=== PATIENT | male | born 1940 | race Caucasian/White ===

== ENCOUNTER 2020-01-25 10:31 | Inpatient (IN) | payer MEDICARE, SELFPAY ==
[2020-01-06 10:01] VITALS: BMI 28.8
[2020-01-07 12:36] VITALS: BP 181/79; PULSE 51; RESP 16; O2SAT 98; BMI 31.1
--- NOTE | 2020-01-07 12:44 | HO.ANESPROP2 ---
Documented by User: Mariela Rose 01/22/20 11:06 HPI - Anesthesia Eval Consult details Narrative: 79 yo M for R femoral endarterectomy Cardiac cleared COUNT INCLUDES THE [facility] Past Medical History Medical History (Updated 01/06/20 @ 10:45 by Agatha Kelly) Anemia Angina pectoris Arthritis CAD (coronary artery disease) Diabetes Environmental allergies History of prostate cancer Hx of malignant melanoma Hyperlipidemia Hypertension Peripheral artery disease Sleep apnea Cognitive capacity: A&O x3 Functional capacity: independent ambulation Family History Family history of problems with anesthesia: No Surgical History Surgical History (Updated 01/07/20 @ 12:36 by Agatha Kelly) H/O arthroscopy of right knee Hx of appendectomy Hx of cholecystectomy Hx of colonoscopy Hx of foot surgery Hx of tonsillectomy S/P aortogram with runoff S/P cardiac cath History of Problems with Anesthesia: No Social History Social History Are you a primary wound care specialist to a significant other at home: Yes ( AT HOME HAD CVA) Do you presently have visiting nurse or other home services: No Smoking Status: Former smoker Smoked in Last 30 Days: No Smoking Quit Date: 1974 Second Hand Smoke Exposure: No Use of substances other than those prescribed or required for medical reasons: No Have you been hit, kicked, punched, or otherwise hurt by someone within the past year? If so, by whom?: No Advance Directives: No Advance Directives Information Provided: No Advance Directives on File: No Recently lost weight without trying: No Narrative Narrative: No recent illness >4 mets with primary wound care specialist to with CVA. Multiple flights of stairs throughout a usual day. Denies CP or SOB. + R leg pain r/t to PVD. (LLE angio 11/30/19 with stent successful) Reports mild bronchitis with allergies causes wheezing. Plans to start claritin. Will notifiy surgeon/PCP if worsens. Meds Allergies Allergy/AdvReac Type Severity Reaction Status Date / Time No Known Allergies Allergy Verified 01/06/20 10:01 [No Known Allergies*] Home Medications Medication Instructions Recorded Confirmed Type aspirin 81 mg PO DAILY 01/06/20 01/06/20 History glipizide 5 mg PO DAILY 01/06/20 01/06/20 History isosorbide mononitrate 10 mg PO DAILY 01/06/20 01/06/20 History losartan 50 mg PO DAILY 01/06/20 01/06/20 History metoprolol tartrate 25 mg PO DAILY 01/06/20 01/06/20 History simvastatin 40 mg PO BEDTIME 01/06/20 01/06/20 History Exam Exam Date and Time: January 07, 2020 1244 Height,Weight and Vital Signs: Height 5 ft 10 in Weight 98.43 kg BMI 31 Last Vital Signs Pulse 51 01/07/20 12:36 Resp 16 01/07/20 12:36 BP 181/79 H 01/07/20 12:36 Pulse Ox 98 01/07/20 12:36 Pertinent Lab Results Pertinent Lab Results: Laboratory Tests 11/30/19 01/21/20 01/21/20 11:17 08:21 08:21 WBC 5.9 Hgb 13.0 L Hct 39.7 L Plt Count 212 Sodium 136 Potassium 4.2 Chloride 104 Carbon Dioxide 24 BUN 18 H Creatinine 1.01 Laboratory Tests 09/30/19 11/30/19 07:12 11:17 PT 11.3 INR 1.0 APTT 35.5 Hemoglobin A1c 7.3 type and screen done Narrative Narrative: EKG 01/13/20: NSB with 1st degree AV block, minor nonspecific ST-T changes Airway Mallampati Class: II TM Dist: >3cm Loose/Missing/Broken Teeth: Yes (Missing molars, Chipped Left upper molar) Heart: RRR Lungs: JELENA with faint wheeze, otherwise clear Assessment and Plan Assessment Anesthesia Assessment: Anesthesia Plan Discussed, Consent Obtained and PAT Visit Documented by User: Issa Stoddard 01/25/20 07:30 COUNT INCLUDES THE [facility] Past Medical History Medical History (Updated 01/06/20 @ 10:45 by Agatha Kelly) Anemia Angina pectoris Arthritis CAD (coronary artery disease) Diabetes Environmental allergies History of prostate cancer Hx of malignant melanoma Hyperlipidemia Hypertension Peripheral artery disease Sleep apnea Surgical History Surgical History (Updated 01/07/20 @ 12:36 by Agatha Kelly) H/O arthroscopy of right knee Hx of appendectomy Hx of cholecystectomy Hx of colonoscopy Hx of foot surgery Hx of tonsillectomy S/P aortogram with runoff S/P cardiac cath Social History Social History Are you a primary wound care specialist to a significant other at home: Yes ( AT HOME HAD CVA) Do you presently have visiting nurse or other home services: No Smoking Status: Former smoker Smoked in Last 30 Days: No Smoking Quit Date: 1974 Second Hand Smoke Exposure: No Use of substances other than those prescribed or required for medical reasons: No Have you been hit, kicked, punched, or otherwise hurt by someone within the past year? If so, by whom?: No Advance Directives: No Advance Directives Information Provided: No Advance Directives on File: No Recently lost weight without trying: No Meds Allergies Allergy/AdvReac Type Severity Reaction Status Date / Time No Known Allergies Allergy Verified 01/06/20 10:01 [No Known Allergies*] Home Medications Medication Instructions Recorded Confirmed Type aspirin 81 mg PO DAILY 01/06/20 01/06/20 History glipizide 5 mg PO DAILY 01/06/20 01/06/20 History isosorbide mononitrate 10 mg PO DAILY 01/06/20 01/06/20 History losartan 50 mg PO DAILY 01/06/20 01/06/20 History metoprolol tartrate 25 mg PO DAILY 01/06/20 01/06/20 History simvastatin 40 mg PO BEDTIME 01/06/20 01/06/20 History
[2020-01-21 09:20] LABS: Hematocrit 39.7 % (42-52); Mean Corpuscular HGB Conc 32.7 g/dl (31.0-36.0); Mean Corpuscular Hemoglobin 28.5 pg (27.0-33.0); Mean Corpuscular Volume 87.1 fL (80-98); Mean Platelet Volume 9.8 fL (9.4-12.4); Platelet Count 212 X10*3/uL (160-400); Red Blood Count 4.56 X10*6/uL (4.60-5.80); Red Cell Distribution Width 13.4 % (11.0-16.0); White Blood Count 5.9 X10*3/uL (4.8-10.8)
[2020-01-21 09:29] LABS: Prothrombin Time 11.5 SEC (10.8-13.0)
[2020-01-21 09:32] LABS: Partial Thromboplastin Time 38.2 SEC (24.1-38.0)
[2020-01-21 09:55] LABS: Anion Gap 12 (12-20); Carbon Dioxide 24 mmol/L (22-29); Chloride 104 mmol/L (96-108); Potassium 4.2 mmol/l (3.3-5.1); Sodium 136 mmol/L (135-145)
[2020-01-25] VITALS (22 sets, daily range): BP systolic 145–193; BP diastolic 52–81; PULSE 45–67; RESP 12–18; TEMP 36.2–37.3; O2SAT 92–99
[2020-01-25 07:11] LABS: SARS COV2 PCR INHOUSE NEGATIVE (Negative)
[2020-01-25 07:24] LABS: Glucose, Whole Blood 136 mg/dL (60-115)
[2020-01-25] MEDS: ceFAZolin Sodium/Dextrose,Iso 2 GM/50 ML PIGGYBACK IV ×2 (07:42→12:39)
[2020-01-25] MEDS: Lactated Ringers 1,000 ML 50 ML IVCONT (07:43)
--- NOTE | 2020-01-25 11:32 | OP_ITS ---
SURGEON: Krishna Oscar MD INDICATIONS: Hiren is a 79-year-old gentleman, history of activity limiting claudication. He has undergone noninvasive testing along with diagnostic angiogram demonstrating common femoral artery disease. He now presents for endarterectomy. Risks, benefits, and complications were discussed in detail with the patient. He demonstrated clear understanding and consented. PREOPERATIVE DIAGNOSIS: POSTOPERATIVE DIAGNOSIS: PROCEDURE PERFORMED: ESTIMATED BLOOD LOSS: 150 mL. COMPLICATIONS: ANESTHESIA: General endotracheal. ASSISTANTS: Dr. Bello. SPECIMENS: One. PREPROCEDURE DIAGNOSIS: Atherosclerosis with activity limiting right lower extremity claudication. POSTPROCEDURE DIAGNOSIS: Atherosclerosis with activity limiting right lower extremity claudication. PROCEDURES PERFORMED: 1. Right femoral cutdown. 2. Endarterectomy of SFA. 3. Endarterectomy of common femoral artery. 4. Remote endarterectomy of iliac artery. 5. Remote endarterectomy of profunda femoris. DESCRIPTION OF PROCEDURE: The patient was brought to the operating room, prior to which a time-out was called for patient identification and site verification. Right lower extremity was prepped and draped in standard surgical fashion. Incision was carried out over the right groin going down into the common femoral artery. It was tracked up to the inguinal ligament and we traced it down into the SFA. These were individually isolated with silastic loops, the common femoral, SFA, and with eventual dissection, we were then able to identify the profunda femoris. Of note, there was a small side branch that had to be identified and upon clearing had to be repaired with a 6-0 Prolene suture. Once this was accomplished, we administered 7000 units of systemic heparin, after 5 minutes of circulation time, we clamped the common femoral, SFA, and profunda. Arteriotomy was created with 11 blade and then we opened it with Hernandez scissors going all the way up to the base of the external iliac. Once this was done, we started at the SFA performed endarterectomy using a [place] elevator, fine michael. Once the SFA was cleared into the common femoral, we did a remote endarterectomy of the profunda and we established good backbleeding from there and then we turned our attention to the iliac that was cleared and we established good backbleeding from there. Once this was all accomplished, irrigated clean, loose debris was removed. We sutured out a XenoSure patch with a 6-0 Prolene suture in a circumferential manner prior to closure. We flushed this entire area clear and then we closed the patch. Upon closure, several interrupted 6-0 Prolene sutures had to be placed, in addition, in the apex, we tacked with a 7-0 Prolene as well. Adequate hemostasis was achieved. Tisseel sealant was applied and we reapproximated the deep layer using interrupted 2-0 Polysorb suture, superficial layer with 3-0, and finally skin with skin clips. Sterile dressing was applied. At the end of the case, sponge, needle, instrument counts were correct. The patient tolerated the procedure well, returned to Recovery with stable vitals. DRAINS: None. MD SHAUN Reveles/ACE / [id number] MTDD
[2020-01-25] MEDS: 0.9 % Sodium Chloride 1,000 ML 80 ML IVCONT (12:38)
--- NOTE | 2020-01-25 12:53 | P.HPCC_ITS ---
History of Present Illness Date of Service: 01/25/20 Mr. Chisholm is admitted to the ICU this morning following right femoral endarterectomy by Dr. Oscar. The patient is a 79-year-old gentleman with severe activity limiting claudication and difficulty ambulating. His past medical history also includes obesity, type 2 diabetes, hypertension, hyperlipidemia, coronary artery disease with angina, status post PTCA, and history of prostate cancer and arthritis. Medications at home include simvastatin, metformin, Isordil, metoprolol, aspi rin, ibuprofen, losartan, and oxycodone. He had a recent stent to the left common iliac, but Dr. Oscar was not able to do endovascular intervention on the right lower extremity. He therefore presented today for operative intervention. The procedure was accomplished under general endotracheal anesthesia with no operative or anesthetic complications. Postoperatively, he recovered in the PACU, and then was brought to the ICU for overnight monitoring. In the ICU, the patient is fully awake alert and appropriate. He denies any complaints. He is breathing easy with sat of 99% on 1 L oxygen by nasal cannula, and 96% on room air. See vital signs below. There is no jugular venous distention with the head of the bed at 10-20 degrees. Chest is clear to auscultation. Heart rate and rhythm are very soft, with normal-sounding S1 and S2, with no murmur or gallops. The abdomen is benign. The wound has a clean dressing. The patient's feet are about equal, normal temperature, which the patient says is a significant improvement on the right for him.. Of the four pulses in the two feet, the only one I can feel is a faint right posterior tibial in the right foot. He has good dopplerable pulses x4. Preop laboratory data: See below. IMPRESSION: 1. Severe peripheral vascular disease with symptomatic claudication. 2. Obesity 3. Diabetes 4. Hypertension 5. Coronary artery disease. Status post Successful, uncomplicated right femoral endarterectomy. We will resume his home medications. Monitor overnight in the ICU. F/u per Dr. Oscar. [facility] Past Medical History Medical History (Updated 01/06/20 @ 10:45 by Agatha Kelly) Anemia Angina pectoris Arthritis CAD (coronary artery disease) Diabetes Environmental allergies History of prostate cancer Hx of malignant melanoma Hyperlipidemia Hypertension Peripheral artery disease Sleep apnea Functional capacity: independent ambulation Surgical History Surgical History (Updated 01/07/20 @ 12:36 by Agatha Kelly) H/O arthroscopy of right knee Hx of appendectomy Hx of cholecystectomy Hx of colonoscopy Hx of foot surgery Hx of tonsillectomy S/P aortogram with runoff S/P cardiac cath Social History Social History Are 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 If so, by whom?: No Advance Directives: No Advance Directives Information Provided: No Advance Directives on File: No Recently lost weight without trying: No Meds Allergies Allergy/AdvReac Type Severity Reaction Status Date / Time No Known Allergies Allergy Verified 01/06/20 10:01 [No Known Allergies*] Home Medications Medication Instructions Recorded Confirmed Type aspirin 81 mg PO DAILY 01/06/20 01/06/20 History glipizide 5 mg PO DAILY 01/06/20 01/06/20 History isosorbide mononitrate 10 mg PO DAILY 01/06/20 01/06/20 History losartan 50 mg PO DAILY 01/06/20 01/06/20 History metoprolol tartrate 25 mg PO DAILY 01/06/20 01/06/20 History simvastatin 40 mg PO BEDTIME 01/06/20 01/06/20 History Physical Exam Vital Signs: Vital Signs: Vital Signs Temp Pulse Resp BP Pulse Ox 01/25/20 11:41 48 L 18 162/67 H 99 01/25/20 11:28 98.5 F 51 18 178/69 H 98 01/25/20 11:13 50 18 167/64 H 98 01/25/20 10:57 51 171/66 H 98 01/25/20 10:43 52 16 184/70 H 98 01/25/20 10:28 55 18 177/68 H 92 01/25/20 10:23 57 16 176/68 H 92 01/25/20 10:18 56 18 176/66 H 98 01/25/20 10:13 98.4 F 58 18 193/76 H 98 01/25/20 07:35 97.2 F 45 L 16 153/63 H 95 Body Mass Index 31.1 Results Labs Labs: Laboratory Tests 01/21/20 01/21/20 01/21/20 07:55 08:21 08:21 WBC 5.9 RBC 4.56 L Hgb 13.0 L Hct 39.7 L MCV 87.1 MCH 28.5 MCHC 32.7 RDW 13.4 Plt Count 212 MPV 9.8 Absolute Nucleated RBC 0.000 Nucleated RBC % (auto) 0.0 PT 11.5 INR 1.0 APTT 38.2 H Sodium Potassium Chloride Carbon Dioxide Anion Gap POC Glucose Coronavirus (PCR) Blood Type B Negative Antibody Screen NEGATIVE 01/21/20 01/25/20 01/25/20 08:21 05:50 07:02 WBC RBC Hgb Hct MCV MCH MCHC RDW Plt Count MPV Absolute Nucleated RBC Nucleated RBC % (auto) PT INR APTT Sodium 136 Potassium 4.2 Chloride 104 Carbon Dioxide 24 Anion Gap 12 POC Glucose 136 H Coronavirus (PCR) NEGATIVE Blood Type Antibody Screen
[2020-01-25 16:34] LABS: Glucose, Whole Blood 144 mg/dL (60-115)
[2020-01-25] MEDS: glipiZIDE 5 MG TABLET PO (16:36)
[2020-01-25] MEDS: hydrALAZINE HCl 25 MG TABLET PO (20:03)
[2020-01-25 23:16] LABS: Glucose, Whole Blood 130 mg/dL (60-115)
[2020-01-26] VITALS (35 sets, daily range): BP systolic 116–197; BP diastolic 46–79; PULSE 7–80; RESP 11–21; TEMP 36.1–37.1; O2SAT 94–100; BMI 31.1
--- NOTE | 2020-01-26 | ECG_ITS ---
Test Reason : PAIN Blood Pressure : / mmHG Vent. Rate : 078 BPM Atrial Rate : 078 BPM P-R Int : 206 ms QRS Dur : 096 ms QT Int : 354 ms P-R-T Axes : 045 -06 170 degrees QTc Int : 403 ms Normal sinus rhythm Left ventricular hypertrophy with repolarization abnormality RSR' or QR pattern in V1 suggests right ventricular conduction delay ST depression in Lateral leads Abnormal ECG When compared with ECG of 21-APR-2014 15:03, ST now depressed in Anterolateral leads Referred By: Marlin Cabrales Electronically Signed By:MIRELLA DALEY MD
--- NOTE | 2020-01-26 | ECG_ITS ---
Test Reason : chest pain Blood Pressure : / mmHG Vent. Rate : 073 BPM Atrial Rate : 073 BPM P-R Int : 198 ms QRS Dur : 096 ms QT Int : 412 ms P-R-T Axes : 045 -08 -06 degrees QTc Int : 453 ms Normal sinus rhythm Left ventricular hypertrophy with repolarization abnormality Left axis deviation Nonspecific ST abnormality Abnormal ECG Please see previous EKG. No significant changes seen Referred By: Yahir Muller Electronically Signed By:MIRELLA DALEY MD
[2020-01-26] MEDS: hydrALAZINE HCl 20 MG/ML VIAL 5 MG IVPUSH ×2 (00:19→01:21)
[2020-01-26] MEDS: 0.9 % Sodium Chloride 1,000 ML 80 ML IVCONT (00:22)
--- NOTE | 2020-01-26 00:40 | PC.NURSE ---
Addendum entered by Adela Hammond RN 01/26/20 02:55: At 0200 pt BP 184/57, HR 75. PA undated, IV labetalol ordered. Pt BP 164/55, HR 71 after labetalol administration. Pt is asymptomatic. Nursing will continue to monitor. Addendum entered by Adela Hammond RN 01/26/20 02:53: Pt continues to have elevated BP. BP 183/63, HR 69, PA undated. A second dose of 5mg IV hydralazine ordered and administered with some effect, BP now 168/55, HR 70. Original Note: Patient BP 179/63. PA updated and ordered 5mg IV hydralazine - med adminsitered with positive effect; BP 159/59.
[2020-01-26] MEDS: Famotidine 20 MG TABLET PO (02:05)
[2020-01-26] MEDS: Labetalol HCL 100 MG/20 ML VIAL 10 MG IVPUSH (02:25)
[2020-01-26] MEDS: Simethicone 80 MG TAB.CHEW PO (03:47)
--- NOTE | 2020-01-26 06:23 | PC.NURSE ---
Patient c/o of heartburn overnight. 20mg PO pepcid ordered and administered - pt reports minimal effect. Pt given simethicone with positive effect - pt able to sleep and no further c/o heartburn
[2020-01-26 07:43] LABS: Glucose, Whole Blood 155 mg/dL (60-115)
[2020-01-26 07:51] LABS: MANUAL DIFF FLAG NO
[2020-01-26 08:01] LABS: Basophils Percent Auto 0.4 % (0-2); Eosinophils Percent Auto 0.5 % (0-4); Hematocrit 33.4 % (42-52); Hemoglobin 11.2 g/dl (14.0-18.0); Imm Gran Abs Auto 0.02 X10*3/uL (0.00-0.03); Imm Gran Pct Auto 0.2 % (0.0-0.4); Lymphocytes Absolute Auto 0.9 X10*3/uL (1.2-4.9); Lymphocytes Percent Auto 11.4 % (20-40); Mean Corpuscular HGB Conc 33.5 g/dl (31.0-36.0); Mean Corpuscular Hemoglobin 29.1 pg (27.0-33.0); Mean Corpuscular Volume 86.8 fL (80-98); Mean Platelet Volume 9.8 fL (9.4-12.4); Monocytes Absolute Auto 1.1 X10*3/uL (0.1-1.2); Monocytes Percent Auto 13.3 % (2-11); Neutrophils Absolute Auto 6.1 X10*3/uL (2.0-8.3); Neutrophils Percent Auto 74.2 % (45-73); Platelet Count 166 X10*3/uL (160-400); Prothrombin Time 11.9 SEC (10.8-13.0); Red Blood Count 3.85 X10*6/uL (4.60-5.80); Red Cell Distribution Width 13.7 % (11.0-16.0); White Blood Count 8.2 X10*3/uL (4.8-10.8)
--- NOTE | 2020-01-26 08:01 | HO.POSTANES ---
Post Anesthesia Evaluation Post Anesthesia Evaluation Vital Signs: Vital Signs Temp Pulse Resp BP Pulse Ox 01/26/20 07:00 66 16 168/73 H 98 01/26/20 06:00 69 16 163/70 H 95 01/26/20 05:00 70 21 H 152/53 H 96 01/26/20 04:00 69 18 161/61 H 95 01/26/20 03:00 68 14 168/55 H 95 01/26/20 02:44 71 164/55 H 01/26/20 02:25 75 180/59 H 01/26/20 02:00 75 15 184/57 H 96 01/26/20 01:28 70 168/55 H 94 01/26/20 01:21 68 182/65 H 01/26/20 01:00 69 18 183/63 H 94 01/26/20 00:39 72 16 159/59 H 01/26/20 00:19 69 179/63 H 01/26/20 00:00 98.6 F 69 11 L 179/63 H 97 01/25/20 23:00 66 15 160/57 H 96 01/25/20 22:00 67 18 164/58 H 93 01/25/20 21:00 64 16 164/59 H 94 01/25/20 20:03 62 155/62 H Anesthesia: General Mental Status: Awake Pain Control: Satisfactory Nausea/Vomiting: None Hydration: Adequate Anesthesia-Related Issues: No Anes. Related Issues
[2020-01-26 08:16] LABS: Blood Urea Nitrogen 13 mg/dL (9-16); Calcium 8.2 mg/dL (8.4-10.2); Creatinine Clr Calc Pharmacy 92.7; Estimated Glomerular Filt Rate > 60; Glucose Random 163 mg/dL (60-115)
[2020-01-26] MEDS: Isosorbide Mononitrate 30 MG TAB.ER.24H 15 MG PO (08:19)
[2020-01-26] MEDS: glipiZIDE 5 MG TABLET PO (08:20)
[2020-01-26] MEDS: Metoprolol Tartrate 25 MG TABLET PO ×2 (08:20→21:49)
[2020-01-26] MEDS: Losartan Potassium 50 MG TABLET PO (08:21)
[2020-01-26] MEDS: Aspirin Enteric Coated 81 MG TABLET.DR PO (08:21)
[2020-01-26 08:28] LABS: Anion Gap 13 (12-20); Carbon Dioxide 22 mmol/L (22-29); Chloride 103 mmol/L (96-108); Potassium 4.1 mmol/l (3.3-5.1); Sodium 134 mmol/L (135-145)
--- NOTE | 2020-01-26 09:14 | P.PNVS_ITS ---
Subjective Subjective Patient reports: feels better and pain is less Interval history: Patient is postop day 1 status post right femoral endarterectomy. he is doing extremely well. Pain is well controlled. Is eager to be up and ambulating. He did experience a little bit of reflux last night but overall tolerating a p.o. diet. Physical Exam Vital Signs: Vital Signs: Vital Signs Temp Pulse Resp BP Pulse Ox 01/26/20 09:00 97.8 F 73 13 148/65 H 98 01/26/20 08:21 66 182/51 H 01/26/20 08:20 66 182/51 H 01/26/20 08:19 66 182/51 H 01/26/20 08:00 97.2 F 66 18 182/51 H 94 01/26/20 07:00 66 16 168/73 H 98 01/26/20 06:00 69 16 163/70 H 95 01/26/20 05:00 70 21 H 152/53 H 96 01/26/20 04:00 69 18 161/61 H 95 01/26/20 03:00 68 14 168/55 H 95 01/26/20 02:44 71 164/55 H 01/26/20 02:25 75 180/59 H 01/26/20 02:00 75 15 184/57 H 96 01/26/20 01:28 70 168/55 H 94 01/26/20 01:21 68 182/65 H 01/26/20 01:00 69 18 183/63 H 94 01/26/20 00:39 72 16 159/59 H 01/26/20 00:19 69 179/63 H 01/26/20 00:00 98.6 F 69 11 L 179/63 H 97 01/25/20 23:00 66 15 160/57 H 96 01/25/20 22:00 67 18 164/58 H 93 01/25/20 21:00 64 16 164/59 H 94 01/25/20 20:03 62 155/62 H 01/25/20 20:00 98.4 F 65 16 155/62 H 93 01/25/20 19:00 66 16 177/66 H 96 01/25/20 18:00 64 18 176/68 H 96 01/25/20 17:00 56 17 154/81 H 97 01/25/20 16:00 99.1 F 56 15 145/54 H 97 01/25/20 15:00 54 12 158/56 H 98 01/25/20 14:00 98 F 57 15 150/52 H 95 01/25/20 13:00 97.8 F 53 15 158/56 H 95 01/25/20 11:41 48 L 18 162/67 H 99 01/25/20 11:28 98.5 F 51 18 178/69 H 98 01/25/20 11:13 50 18 167/64 H 98 01/25/20 10:57 51 171/66 H 98 01/25/20 10:43 52 16 184/70 H 98 01/25/20 10:28 55 18 177/68 H 92 01/25/20 10:23 57 16 176/68 H 92 01/25/20 10:18 56 18 176/66 H 98 01/25/20 10:13 98.4 F 58 18 193/76 H 98 Body Mass Index 31.1 Const: General: cooperative, healthy appearing and no acute distress Orientation/consciousness: oriented to person, oriented to place and oriented to time HENMT: Head: Yes normal to inspection Neck: Carotids: no bruits Chest: Chest palpation & inspection: normal inspection of the chest Resp: Effort & Inspection: normal respiratory effort and able to speak in complete sentences Auscultation: clear to auscultation bilaterally Cardio: Rate: regular rate Heart sounds: S1 normal heart sound present and S2 normal heart sound present GI: Inspection: Yes normal to inspection Skin: Other: Right groin incision clean dry intact. No evidence of hematoma. Excellent DP signal on the right. General skin exam: no rashes or lesions noted Wounds: no wounds Neuro: General: oriented to person, oriented to place, oriented to time and CN's II-XI intact bilaterally Extrem: General: Yes normal to inspection, Yes full ROM and Yes no clubbing, c yanosis or edema Psych: Appearance: grossly normal and well kempt Speech and movement: Normal speech and movement present Affect: normal affect Progress Note: A&P Assessment and plan (1) PAD (peripheral artery disease): Problem details: Patient is status post right femoral endarterectomy. In doing extremely well. Will get him out of bed to chair today. We will DC Kemp And stop IV fluids. If stable may transfer [place] [facility]. thank you to the manager consumer insights for assistance in his care. Status: Acute Fall Risk Details Current Medications: Current Medications Generic Name Dose Route Start Last Admin Trade Name Freq PRN Reason Stop Dose Admin Acetaminophen 650 mg 01/25/20 11:54 Acetaminophen 325 Mg Tablet PO Q6H PRN Pain, Mild (Pain Scale 1-3) Aspirin 81 mg 01/26/20 09:00 01/26/20 08:21 Aspirin Enteric Coated 81 Mg Tablet. PO 81 mg DAILY BC Administration Atorvastatin Calcium 20 mg 01/26/20 21:00 Atorvastatin Calcium 20 Mg Tablet PO BEDTIME BC Glipizide 5 mg 01/26/20 09:00 01/26/20 08:20 Glipizide 5 Mg Tablet PO 5 mg DAILY BC Administration Sodium Chloride 1,000 mls @ 80 mls/hr 01/25/20 11:54 01/26/20 00:22 Ns IVCONT 80 mls/hr .[id number] BC Administration Isosorbide Mononitrate 15 mg 01/26/20 09:00 01/26/20 08:19 Isosorbide Mononitrate 30 Mg Tab.Er.24h PO 15 mg DAILY BC Administration Protocol Losartan Potassium 50 mg 01/26/20 09:00 01/26/20 08:21 Losartan Potassium 50 Mg Tablet PO 50 mg DAILY BC Administration Protocol Metoprolol Tartrate 25 mg 01/26/20 09:00 01/26/20 08:20 Metoprolol Tartrate 25 Mg Tablet PO 25 mg DAILY BC Administration Protocol Morphine Sulfate 2 mg 01/25/20 11:54 Morphine Sulfate 2 Mg/Ml Cartridge IVPUSH Q4H PRN Pain, Severe (Pain Scale 7-10) Oxycodone HCl 5 mg 01/25/20 11:54 Oxycodone Hcl Immed Release 5 Mg Tablet PO Q4H PRN Pain, Moderate (Pain Scale 4-6 Sodium Chloride 3 ml 01/25/20 16:00 01/26/20 07:41 0.9 % Sodium Chloride Flush 3 Ml Syringe IVFLUSH Not Given QSHIFT [facility] Time Spent With Patient Time: Total time spent is greater than 50% in coordination of care (as documented) at patient's floor/unit and/or counseling patient: Time with patient: 15 - 24 minutes
[2020-01-26] MEDS: Heparin Sodium,Porcine 5,000 UNIT/ML VIAL 5000 UNIT SUBCUT ×2 (10:35→16:32)
[2020-01-26 11:36] LABS: Glucose, Whole Blood 153 mg/dL (60-115)
[2020-01-26] MEDS: 0.9 % Sodium Chloride Flush 3 ML SYRINGE IVFLUSH (16:32)
[2020-01-26 16:55] LABS: Glucose, Whole Blood 147 mg/dL (60-115)
[2020-01-26] MEDS: Atorvastatin Calcium 20 MG TABLET PO (21:05)
[2020-01-26] MEDS: Nitroglycerin 0.4 MG TAB.SUBL SUBLINGUAL (23:04)
--- NOTE | 2020-01-26 23:17 | PC.NURSE ---
PT IS A&O X3. S/P RIGHT FEMORAL ENDARTERECTOMY YESTERDAY. WAS OOB IN CHAIR. BTB WITHOUT DIFFICULTY. MOVES STEADILY. RT GROIN DSG IS INTACT WITH 2 SMALL DOTS OF BLOOD STAINING. PEDAL AND POSTERIOR PULSES ARE AUDIBLE WITH A DOPPLAR ON BOTH FEET AND BOTH ARE WARM TO TOUCH. BP WAS HIGH, UP TO 179/59. LEAF BLENDER NOAMY NOTIFIED AND METOPROLOL INCREASED TO BID AND PT RECEIVED A DOSE TONIGHT. BP DID COME DOWN. ORDERS GIVEN TO TRANSFER PT TO [facility]. PT AWARE OF PLAN. WHILE WAITING FOR BED TO BE ASSIGNED, PT BEGAN TO HAVE CHEST/EPIGASTRIC PAIN NON RADIATING THAT HE BELIEVED WAS EPIGASTRIC AND TOOK TUMS FROM HOME. IT WASN'T COMPLETELY GOING AWAY AND HE CALLED FOR THE NURSE TO ASK FOR A NTG SL TABLET. O2 WAS GIVEN AT 2L VIA NC. 12 LEAD EKG WAS DONE WITH NO CHANGES. SERVICE WAS TRANSFERRED TO HOSPITALIST CARE BY THIS TIME AND DR BLU TORRE NOTIFIED AND NTG SL ORDERED AND ONE TABLET GIVEN. SBP WAS UP TO 190'S BEFORE NTG AND CAME DOWN TO 130'S. PAIN COMPLETELY RESOLVED.
[2020-01-27] VITALS: BP 118/58; PULSE 75; RESP 16; O2SAT 96
[2020-01-27] MEDS: 0.9 % Sodium Chloride Flush 3 ML SYRINGE IVFLUSH ×2 (01:00→08:36)
--- NOTE | 2020-01-27 01:56 | PC.NURSE ---
PT TRANSFERRED FROM ICU TO IMC VIA STRETCHER WITHOUT DIFFICULTY. TELE MONITOR APPLIED. PT IS NSR WITH FIRST DEGREE AVB RATE 60S. PT DENIES PAIN. VSS. HIGH FALL RISK PROTOCOL CONTINUED AND EXPLAINED TO PT. PT HAS NO C/O AT THIS TIME. CALL KELLEY IN REACH. WILL CONTINUE TO MONITOR.
[2020-01-27] MEDS: Heparin Sodium,Porcine 5,000 UNIT/ML VIAL 5000 UNIT SUBCUT ×2 (02:08→08:40)
[2020-01-27 03:56] VITALS: BP 180/70; PULSE 66; RESP 18; TEMP 35.9; O2SAT 95
[2020-01-27 05:07] VITALS: BP 180/70; PULSE 68
[2020-01-27] MEDS: hydrALAZINE HCl 20 MG/ML VIAL 5 MG IVPUSH (05:07)
--- NOTE | 2020-01-27 05:41 | PC.NURSE ---
BP 180/70 THIS AM. PT ASYMPTOMATIC FOR HYPERTENSION. NOTIFIED. PT GIVEN 5MG IV HYDRALAZINE. WILL RECHECK BLOOD PRESSURE PER PROTOCOL. CALL KELLEY IN REACH.
[2020-01-27 06:02] VITALS: BP 164/68
[2020-01-27 07:18] VITALS: BP 172/64; PULSE 69; RESP 20; TEMP 36.7; O2SAT 96
[2020-01-27 07:40] LABS: Glucose, Whole Blood 171 mg/dL (60-115)
[2020-01-27] MEDS: Aspirin Enteric Coated 81 MG TABLET.DR PO (08:32)
[2020-01-27] MEDS: Isosorbide Mononitrate 30 MG TAB.ER.24H 15 MG PO (08:32)
[2020-01-27] MEDS: Metoprolol Tartrate 25 MG TABLET PO (08:33)
[2020-01-27] MEDS: Losartan Potassium 50 MG TABLET PO (08:34)
[2020-01-27] MEDS: glipiZIDE 5 MG TABLET PO (08:36)
--- NOTE | 2020-01-27 09:47 | W.MHC.F2F ---
Service Date Service Date: 01/27/20 Reasons for Services overseeing care: Krishna Oscar MD Homebound: Leaving the home is medically contraindicated at this time without the asist of a device and/or another person due th the listed conditions above and below. post op femoral endarterectomy. Fall risk Certification: Based on the above findings, I certify that this patient is confined to the home and needs intermittent penitentiary care, physical therapy and/or speech therapy, or continues to need occupational therapy. The patient is under my care, and I have initiated the establishment of the plan of care. The patient will be followed by a physician who will periodically review the plan of care.
--- NOTE | 2020-01-27 10:02 | MHC.CM.PN ---
Patient will be discharged home today. Referral made to [facility], patient is in agreement. Family will provide transportation.
--- NOTE | 2020-01-27 12:22 | DS_ITS ---
ADMITTING DIAGNOSIS: Peripheral artery disease. DISCHARGE DIAGNOSIS: Peripheral artery disease. HOSPITAL COURSE: The patient was admitted on 01/25/2020, underwent elective femoral endarterectomy of right common femoral artery. Postoperatively, did well, was observed in the ICU. Postop day 1, Kemp catheter was removed and the patient was out of bed to chair. Postop day 2, the [place] [facility] [place] and was ambulating without any significant difficulty, noted that the leg felt significantly better, was subsequently discharged. CONDITION UPON DISCHARGE: Stable. DISCHARGE DIET: Regular. DISCHARGE MEDICATIONS: To resume all home medications and Percocet was added for pain control. DISCHARGE INSTRUCTIONS: Included follow up with me in approximately 2 weeks' time and visiting nurses were engaged for followup. Once again, he will require 2-week followup for staple removal. MD SHAUN Reveles/ACE / [id number]
== END 2020-01-27 11:43 | disposition home or self-care (01) | DRG 272 ==
LOC: HO.ICU 10:32 → HO.IMC 01-26 23:48
PROVIDERS: Anesthesiology; Admitting Provider Surgery Vascular Surgery; PCP Internal Medicine; Visit Provider Surgery Vascular Surgery
PROC: 04CH0ZZ Extirpation of Matter from Right External Iliac Artery, Open Approach (ICD-10-PCS; principal; 2020-01-25 07:30)
DX: E11.51 Type 2 diabetes mellitus with diabetic peripheral angiopathy without gangrene (principal); I70.211 Atherosclerosis of native arteries of extremities with intermittent claudication, right leg; E78.5 Hyperlipidemia, unspecified; I10 Essential (primary) hypertension; G47.30 Sleep apnea, unspecified; I25.119 Atherosclerotic heart disease of native coronary artery with unspecified angina pectoris; Z20.828 Contact with and (suspected) exposure to other viral communicable diseases; Z99.89 Dependence on other enabling machines and devices; Z79.84 Long term (current) use of oral hypoglycemic drugs; Z79.899 Other long term (current) drug therapy
CPT/HCPCS: 36415; 80048; 80051; 82947; 85025; 85027; 85610; 85730; 86850; 86900; 86901; 87635; 88304; 88311; 93005; C1768; J0690; J2405; J3010

== ENCOUNTER 2020-01-28 09:19 | Emergency (ER) | payer MEDICARE, SELFPAY ==
[2020-01-28 09:27] VITALS: BP 162/55; PULSE 60; RESP 13; TEMP 37.1; O2SAT 99; BMI 29.9
--- NOTE | 2020-01-28 10:01 | US_ITS ---
EXAMINATION: US ABDOMEN LIMITED CLINICAL INFORMATION: Epigastric and right upper quadrant pain. COMPARISON: CTA abdomen and pelvis 11/17/2019 TECHNIQUE: Real-time imaging of the right upper quadrant abdominal viscera. FINDINGS: PANCREAS: The visualized pancreas is normal in size and contour and echogenicity. There is no pancreatic ductal distention or retroperitoneal effusion. Portion pancreatic tail obscured by bowel gas and not completely imaged. LIVER: The liver is normal in size and smooth in contour. There is mild increased hepatic parenchymal echogenicity consistent with hepatic steatosis. There is no focal hepatic parenchymal lesion. No intrahepatic biliary ductal dilatation. Doppler shows portal flow towards the liver. GALLBLADDER: Prior cholecystectomy. COMMON BILE DUCT: Normal in caliber measuring 0.6 cm in diameter. RIGHT KIDNEY: Right kidney measures 11.4 cm in length. There is normal parenchymal thickness and echogenicity. No hydronephrosis or visible calculi. Again, there is a cyst lateral side interpolar region measuring approximately 2.9 x 2.3 x 1.6 cm. There is a thin avascular internal septation. No solid component. FREE FLUID: None. US/US abdomen limited IMPRESSION: 1. Prior cholecystectomy. No ductal dilatation. 2. Visualized pancreas unremarkable. Portion pancreatic tail obscured by bowel gas. 3. No right hydronephrosis or visible calculi. 4. Hepatic steatosis.
--- NOTE | 2020-01-28 10:02 | ECG_ITS ---
Test Reason : CP Blood Pressure : / mmHG Vent. Rate : 061 BPM Atrial Rate : 061 BPM P-R Int : 216 ms QRS Dur : 100 ms QT Int : 432 ms P-R-T Axes : 061 -01 000 degrees QTc Int : 434 ms Sinus rhythm with 1st degree A-V block Nonspecific ST abnormality Abnormal ECG When compared with ECG of 26-JAN-2020 22:52, ST less depressed in Lateral leads Referred By: Serenity Gaviria Electronically Signed By:MIRELLA DALEY MD
[2020-01-28] MEDS: Lidocaine HCl Viscous 2 % 15 ML SOLUTION MUCOUS MEM (10:11)
[2020-01-28] MEDS: Famotidine 20 MG TABLET PO (10:11)
[2020-01-28] MEDS: Magnesium Hydrox/Alum Hydrox 30 ML ORAL.SUSP PO (10:11)
--- NOTE | 2020-01-28 10:25 | ED.CHESTPAIN ---
HPI - Chest Pain General Chief Complaint: Chest Pain Stated Complaint: INTERGESTION Time Seen by Provider: 01/28/20 10:01 Source: patient History of Present Illness HPI narrative: 79-year-old M with past medical history obesity, type 2 diabetes, HTN, HLD, CAD with angina,prostate cancer, S/P endovascular intervention in the [facility] by Dr. Oscar on 01/25/20 presenting to ED complaining of epigastric burning x3 days. admits to history of GERD, reports symptoms similar to prior, states started while was in hospital after procedure, worse after eating and when lying flat. Mildly relieved with Pepcid. Denies chest pain, SOB, nausea /vomiting, diarrhea Related Data Home Medications Medication Instructions Recorded Confirmed losartan 50 mg PO DAILY 01/06/20 01/06/20 metoprolol tartrate 25 mg PO DAILY 01/06/20 01/06/20 simvastatin 40 mg PO BEDTIME 01/06/20 01/06/20 glipizide 5 mg PO DAILY 01/25/20 01/25/20 isosorbide mononitrate 15 mg PO DAILY 01/25/20 01/25/20 nitroglycerin 0.4 mg SUBLINGUAL Q5M PRN 01/25/20 01/25/20 Previous Rx's Medication Instructions Recorded oxycodone-acetaminophen [Percocet] 1 tab PO Q6H PRN #10 tab 01/27/20 alum-mag hydroxide-simeth [Maalox 10 ml PO Q6H PRN #3000 ml 01/28/20 Advanced] omeprazole 10 mg PO DAILY 14 Days #14 cap 01/28/20 Allergies Allergy/AdvReac Type Severity Reaction Status Date / Time No Known Allergies Allergy Verified 01/06/20 10:01 [No Known Allergies*] Review of Systems Review of Systems: Constitutional: No Fever, No Chills, No Fatigue, No Malaise Cardiovascular: No Chest Pain, No SOB, No Dyspnea on Exertion, No Edema Respiratory: No Cough, No Sputum, No Wheezing, No Dyspnea Gastrointestinal: No Nausea, No Vomiting, No Diarrhea, No Constipation,+Abdominal pain Musculoskeletal: No joint pain, No Myalgias, No Joint Swelling Skin: No Skin Lesions, No rash Yes all other systems are reviewed and are negative PMFSH Past Medical History Attestation statement: The following information was validated with the patient. Medical History (Updated 01/28/20 @ 14:13 by DANIEL Ftich) Anemia Angina pectoris Arthritis CAD (coronary artery disease) Diabetes Environmental allergies History of prostate cancer Hx of malignant melanoma Hyperlipidemia Hypertension Peripheral artery disease Sleep apnea Surgical History (Updated 01/07/20 @ 12:36 by Agatha Kelly) H/O arthroscopy of right knee Hx of appendectomy Hx of cholecystectomy Hx of colonoscopy Hx of foot surgery Hx of tonsillectomy S/P aortogram with runoff S/P cardiac cath Social History Social History Household Members: Spouse Housing: House Alcohol intake: never Smoking Status: Never smoker Second Hand Smoke Exposure: No Use of substances other than those prescribed or required for medical reasons: No Advance Directives: Yes Advance Directives Information Provided: Yes Advance Directives on File: No Physical Exam Vital Signs: Vital Signs: Vital Signs Temp Pulse Resp BP Pulse Ox 01/28/20 12:59 98.1 F 56 12 156/61 H 98 01/28/20 11:33 98.0 F 55 19 136/57 L 98 01/28/20 09:27 98.7 F 60 13 162/55 H 99 Body Mass Index 29.9 Const: General: cooperative and healthy appearing Orientation/consciousness: patient oriented x3 Limitations: no limitations HENMT: Head: Yes normal to inspection Ears: hearing grossly normal bilaterally General nose exam: Normal external nose present Face and sinus: Yes normal facial exam Eyes: General: appearance normal, both eyes and all related structures EOM: EOMs intact bilaterally Neck: Neck: Yes normal visual inspection Resp: Effort & Inspection: normal respiratory effort Auscultation: clear to auscultation bilaterally, no crackles, no rales and no rhonchi Cardio: Rate: regular rate Heart sounds: S1 normal heart sound present and S2 normal heart sound present GI: Inspection: Yes normal to inspection Palpation (GI): Soft to palpation, Tenderness to palpation present (GI) in the epigastrum and in the RUQ, no guarding and not rigid Skin: Rashes: no rashes Wounds: no wounds Neuro: General: patient oriented x3 Extrem: Other: surgical site to right groin with hector intact. Area is dry / clean ecchymosis. No drainage / /induration or surrounding cellulitis. No bilateral calf tenderness General: No edema Course Course Course Narrative: -1118-- BUN elevated likely from dehydration, glucose 221, no AG, troponin 37.9 (no priors in system) > EKG nonischemic /without changes> will obtain 3hr repeat -1157-- ultrasound showing hepatic steatosis otherwise unremarkable - serial troponin 47.8> not greater than 50% delta, NH unlikely -1412- on re-evaluation patient reports symptomatic improvement / resolution in the ED. Lab and imaging results discussed. Including worrisome signs and symptoms and strict return precautions. Patient verbalized understanding feel safe for discharge home MDM - Chest Pain MDM Narrative Medical decision making narrative: 79-year-old M with past medical history obesity, type 2 diabetes, HTN, HLD, CAD with angina,prostate cancer, S/P endovascular intervention in the [place] by Dr. Oscar on 01/25/20 presenting to ED complaining of epigastric burning x3 days. On exam VSS, NAD/ well-appearing, abdomen soft with epigastric/ RUQ TTP. Surgical site dry/clean without active infection. Concern for GERD /cholecystitis/pancreatitis vs atypical ACS. plan: EKG, labs, abdomen ultrasound, symptomatic therapy/reassess Lab Data Result diagrams: 01/28/20 10:23 01/28/20 10:23 Labs: Lab Results 01/28/20 01/28/20 01/28/20 Range/Units 10:23 10:23 10:23 WBC 7.4 (4.8-10.8) X10*3/uL RBC 3.58 L (4.60-5.80) X10*6/uL Hgb 10.5 L (14.0-18.0) g/dl Hct 30.9 L (42-52) % MCV 86.3 (80-98) fL MCH 29.3 (27.0-33.0) pg MCHC 34.0 (31.0-36.0) g/dl RDW 13.7 (11.0-16.0) % Plt Count 189 (160-400) X10*3/uL MPV 9.5 (9.4-12.4) fL Immature Gran % (Auto) 0.5 H (0.0-0.4) % Neut % (Auto) 60.5 (45-73) % Lymph % (Auto) 17.2 L (20-40) % [place] % (Auto) 15.6 H (2-11) % Eos % (Auto) 5.8 H (0-4) % Baso % (Auto) 0.4 (0-2) % Lymph # (Auto) 1.3 (1.2-4.9) X10*3/uL [place] # (Auto) 1.2 (0.1-1.2) X10*3/uL Eos # (Auto) 0.4 (0.0-0.4) X10*3/uL Baso # (Auto) 0.0 (0.0-0.2) X10*3/uL Abs Immat Gran (auto) 0.04 H (0.00-0.03) X10*3/uL Absolute Neuts (auto) 4.5 (2.0-8.3) X10*3/uL Absolute Nucleated RBC 0.000 (0.0-0.012) X10*3/uL Nucleated RBC % (auto) 0.0 (0.0-0.2) /100WBC Hold Blue Top Sodium 135 (135-145) mmol/L Potassium 4.2 (3.3-5.1) mmol/l Chloride 101 (96-108) mmol/L Carbon Dioxide 27 (22-29) mmol/L Anion Gap 11 L (12-20) BUN 25 H D (9-16) mg/dL Creatinine 1.03 (0.5-1.4) mg/dL Estim Creat Clear Calc 67.2 Estimated GFR > 60 Random Glucose 221 H D (60-115) mg/dL Calcium 9.3 (8.4-10.2) mg/dL Total Bilirubin (0.0-1.0) mg/dL Direct Bilirubin (0.0-0.5) mg/dL AST (5-37) U/L ALT (0-40) U/L Alkaline Phosphatase (39-117) U/L Troponin I High Sens 37.9 H (<3.5-35.0) ng/L Total Protein (6.5-8.0) g/dL Albumin (3.5-5.0) g/dL Lipase (8-78) U/L 01/28/20 01/28/20 01/28/20 Range/Units 10:23 10:23 13:12 WBC (4.8-10.8) X10*3/uL RBC (4.60-5.80) X10*6/uL Hgb (14.0-18.0) g/dl Hct (42-52) % MCV (80-98) fL MCH (27.0-33.0) pg MCHC (31.0-36.0) g/dl RDW (11.0-16.0) % Plt Count (160-400) X10*3/uL MPV (9.4-12.4) fL Immature Gran % (Auto) (0.0-0.4) % Neut % (Auto) (45-73) % Lymph % (Auto) (20-40) % [place] % (Auto) (2-11) % Eos % (Auto) (0-4) % Baso % (Auto) (0-2) % Lymph # (Auto) (1.2-4.9) X10*3/uL [place] # (Auto) (0.1-1.2) X10*3/uL Eos # (Auto) (0.0-0.4) X10*3/uL Baso # (Auto) (0.0-0.2) X10*3/uL Abs Immat Gran (auto) (0.00-0.03) X10*3/uL Absolute Neuts (auto) (2.0-8.3) X10*3/uL Absolute Nucleated RBC (0.0-0.012) X10*3/uL Nucleated RBC % (auto) (0.0-0.2) /100WBC Hold Blue Top SEE NOTE Sodium (135-145) mmol/L Potassium (3.3-5.1) mmol/l Chloride (96-108) mmol/L Carbon Dioxide (22-29) mmol/L Anion Gap (12-20) BUN (9-16) mg/dL Creatinine (0.5-1.4) mg/dL Estim Creat Clear Calc Estimated GFR Random Glucose (60-115) mg/dL Calcium (8.4-10.2) mg/dL Total Bilirubin 0.5 (0.0-1.0) mg/dL Direct Bilirubin 0.2 (0.0-0.5) mg/dL AST 15 (5-37) U/L ALT 15 (0-40) U/L Alkaline Phosphatase 75 (39-117) U/L Troponin I High Sens 47.8 H (<3.5-35.0) ng/L Total Protein 6.0 L (6.5-8.0) g/dL Albumin 3.7 (3.5-5.0) g/dL Lipase 50 (8-78) U/L Discharge Plan Discharge Clinical Impression: Abdominal pain, epigastric GERD (gastroesophageal reflux disease) Qualifiers: Esophagitis presence: esophagitis presence not specified Qualified Code(s): K21.9 - Gastro-esophageal reflux disease without esophagitis Patient Disposition: Home, Self-Care Instructions: Gastroesophageal Reflux Disease (ED) Additional Instructions: your blood work was reassuring today in the ED. Your ultrasound in chest x-ray did not show any acute findings Continue taking omeprazole as needed for your GERD Maalox also's help settle your stomach acid Follow-up with your GI doctor and PCP if her symptoms persist or worsen, your shortness breath, or chest pain return to the ED immediately Prescriptions: New omeprazole 10 mg capsule,delayed release(DR/EC) 10 mg PO DAILY 14 Days Qty: 14 RF: 0 alum-mag hydroxide-simeth [Maalox Advanced] 200-200-20 mg/5 mL suspension 10 ml PO Q6H PRN (Reason: indigestion) Qty: 3000 RF: 0 No Action simvastatin 40 mg Tablet 40 mg PO BEDTIME RF: 0 losartan 50 mg Tablet 50 mg PO DAILY RF: 0 metoprolol tartrate 25 mg Tablet 25 mg PO DAILY RF: 0 isosorbide mononitrate 30 mg Tablet Extended Release 24 Hr 15 mg PO DAILY RF: 0 nitroglycerin 0.4 mg Tablet, Sublingual 0.4 mg SUBLINGUAL Q5M PRN (Reason: Chest Pain) RF: 0 glipizide 5 mg Tablet 5 mg PO DAILY RF: 0 oxycodone-acetaminophen [Percocet] 5-325 mg tablet 1 tab PO Q6H PRN (Reason: pain) Qty: 10 RF: 0 Referrals: Gilbert Francis MD [Primary Care Provider] - 2 days Jerzy Prieto [Physician] - 1 week
[2020-01-28 10:28] LABS: MANUAL DIFF FLAG NO
[2020-01-28 10:33] LABS: Basophils Percent Auto 0.4 % (0-2); Eosinophils Absolute Auto 0.4 X10*3/uL (0.0-0.4); Eosinophils Percent Auto 5.8 % (0-4); Hematocrit 30.9 % (42-52); Hemoglobin 10.5 g/dl (14.0-18.0); Imm Gran Abs Auto 0.04 X10*3/uL (0.00-0.03); Imm Gran Pct Auto 0.5 % (0.0-0.4); Lymphocytes Absolute Auto 1.3 X10*3/uL (1.2-4.9); Lymphocytes Percent Auto 17.2 % (20-40); Mean Corpuscular Hemoglobin 29.3 pg (27.0-33.0); Mean Corpuscular Volume 86.3 fL (80-98); Mean Platelet Volume 9.5 fL (9.4-12.4); Monocytes Absolute Auto 1.2 X10*3/uL (0.1-1.2); Monocytes Percent Auto 15.6 % (2-11); Neutrophils Absolute Auto 4.5 X10*3/uL (2.0-8.3); Neutrophils Percent Auto 60.5 % (45-73); Platelet Count 189 X10*3/uL (160-400); Red Blood Count 3.58 X10*6/uL (4.60-5.80); Red Cell Distribution Width 13.7 % (11.0-16.0); White Blood Count 7.4 X10*3/uL (4.8-10.8)
[2020-01-28 11:02] LABS: Anion Gap 11 (12-20); Blood Urea Nitrogen 25 mg/dL (9-16); Calcium 9.3 mg/dL (8.4-10.2); Carbon Dioxide 27 mmol/L (22-29); Chloride 101 mmol/L (96-108); Creatinine Clr Calc Pharmacy 67.2; Estimated Glomerular Filt Rate > 60; Glucose Random 221 mg/dL (60-115); Potassium 4.2 mmol/l (3.3-5.1); Sodium 135 mmol/L (135-145)
[2020-01-28 11:06] LABS: Alanine Aminotransferase 15 U/L (0-40); Albumin Level 3.7 g/dL (3.5-5.0); Alkaline Phosphatase 75 U/L (39-117); Aspartate Amino Transferase 15 U/L (5-37); Bilirubin Direct 0.2 mg/dL (0.0-0.5); Bilirubin Total 0.5 mg/dL (0.0-1.0); Lipase 50 U/L (8-78)
[2020-01-28 11:12] LABS: Troponin-I High Sensitivity 37.9 ng/L (<3.5-35.0)
--- NOTE | 2020-01-28 11:27 | XR_ITS ---
EXAMINATION: XR CHEST CLINICAL INFORMATION: Chest pain COMPARISON: Chest radiographs 01/07/2019 TECHNIQUE: Portable upright AP x2 views of the chest was obtained. FINDINGS: There is no pneumothorax, pleural reaction, or effusion. No airspace consolidation or definite groundglass opacity. The costophrenic sulci are clear. The heart is normal in size. The hilar contours are normal. The mediastinal contours are stable. There is no visible acute bony abnormality. XR/XR chest 1V IMPRESSION: Lungs clear. No acute intrathoracic disease.
[2020-01-28 11:33] VITALS: BP 136/57; PULSE 55; RESP 19; TEMP 36.7; O2SAT 98
[2020-01-28] MEDS: Aspirin Enteric Coated 325 MG TABLET.DR PO (12:20)
[2020-01-28 12:59] VITALS: BP 156/61; PULSE 56; RESP 12; TEMP 36.7; O2SAT 98
[2020-01-28 14:02] LABS: Troponin-I High Sensitivity 47.8 ng/L (<3.5-35.0)
== END 2020-01-28 14:39 | disposition home or self-care (01) ==
PROVIDERS: Physician Assistant; Emergency Provider Emergency Medicine; PCP Internal Medicine
DX: K21.9 Gastro-esophageal reflux disease without esophagitis (principal); I25.10 Atherosclerotic heart disease of native coronary artery without angina pectoris; I10 Essential (primary) hypertension; Z79.899 Other long term (current) drug therapy
CPT/HCPCS: 36415; 71045; 76705; 80048; 80076; 83690; 84484; 85025; 93005; 99284

== ENCOUNTER → 2020-02-11 14:36 | Outpatient (BNVA) | payer MEDICARE, SELFPAY | PROVIDERS: PCP Internal Medicine; Visit Provider Surgery Vascular Surgery | DX: T81.49XA Infection following a procedure, other surgical site, initial encounter (principal); L03.115 Cellulitis of right lower limb; I73.9 Peripheral vascular disease, unspecified | CPT/HCPCS: 99212 ==

== ENCOUNTER → 2020-03-08 11:02 | Outpatient (BNVA) | payer MEDICARE, SELFPAY | PROVIDERS: PCP Internal Medicine; Visit Provider Surgery Vascular Surgery | DX: I73.9 Peripheral vascular disease, unspecified (principal) | CPT/HCPCS: 99212 ==

== ENCOUNTER 2020-05-30 12:54 | Outpatient (REF) | payer MEDICARE, SELFPAY ==
--- NOTE | ~2020-05-30 | US_ITS ---
EXAMINATION: NONINVASIVE ASSESSMENT OF THE ARTERIES OF BOTH LOWER EXTREMITIES WITH PVR EXAM AND BILATERAL LOWER EXTREMITY DUPLEX CLINICAL INFORMATION: Peripheral vascular disease TECHNIQUE: Ankle pulse volume recordings, ankle pressure measurements and ankle brachial indices were obtained of the lower extremity arterial system bilaterally in addition to duplex Doppler techniques with wave form analysis and measurement of velocities in the common femoral, profunda femoral, superficial femoral, popliteal and tibial arteries. The study was performed only at rest. COMPARISON: Previous exam October 2019 FINDINGS: a) AT REST: RIGHT LE. The right ankle-brachial index is: 0.97 2. Right ankle pressure: normal. 3. Right ankle PVR waveform: normal. 4. Right direct duplex Doppler findings: There is evidence of atherosclerotic disease with vessel wall calcification. There is a marked wall thickening and luminal narrowing of the distal superficial femoral artery. There is a prominent collateral vessel. There is evidence of mild atherosclerotic disease and stenosis of the popliteal artery. There areas of segmental stenosis of the visualized right posterior tibial artery. * Common femoral artery: 172 cm/s, Diastolic flow reversal: Yes * Superficial femoral artery (proximal, mid, distal): 138, 212 and 154 cm/s, Diastolic flow reversal: Biphasic waveform proximally and triphasic waveform in the mid and distal SFA. * Popliteal artery: 156 cm/s, Diastolic flow reversal: Yes * Posterior tibial artery: 82 cm/s, Diastolic flow reversal: No. Monophasic flow LEFT LE. The left ankle-brachial index is: 0.56 2. Left ankle pressure: Slightly decreased 3. Left ankle PVR waveform: Slightly dampened 4. Left direct duplex Doppler findings: There is significant atherosclerotic plaque seen in the left common femoral artery. * Common femoral artery: 125 cm/s, Diastolic flow reversal: No * Superficial femoral artery (proximal, mid, distal): 126, 62 and 51 cm/s, Diastolic flow reversal: No. Monophasic flow. * Popliteal artery: 159 cm/s, Diastolic flow reversal: No. Monophasic flow. * Posterior tibial artery: 53 cm/s, Diastolic flow reversal: No. Monophasic flow. Left profunda peak stalk velocity is markedly elevated at 438 cm/s suggestive of stenosis. ESTHER Reference: * >0.97-1.25 = normal - no significant arterial disease * 0.75-0.96 = mild peripheral arterial disease * 0.5-0.74 = moderate peripheral arterial disease * <0.50 = severe peripheral arterial disease US/US arterial duplex LE BI IMPRESSION: Right: Right distal SFA disease with collateral vessels seen. Diseased right posterior tibial artery. The right ESTHER is 0.97 which is normal. Left: Significant calcified plaque in the left common femoral artery. Elevated peak systolic velocity in the profunda suggestive of stenosis. Monophasic flow seen throughout the left lower extremity. The left ESTHER is 0.56 suggestive of moderate obstructive atherosclerotic disease.
--- NOTE | ~2020-05-30 | US_ITS ---
EXAMINATION: NONINVASIVE ASSESSMENT OF THE ARTERIES OF BOTH LOWER EXTREMITIES WITH PVR EXAM AND BILATERAL LOWER EXTREMITY DUPLEX CLINICAL INFORMATION: Peripheral vascular disease TECHNIQUE: Ankle pulse volume recordings, ankle pressure measurements and ankle brachial indices were obtained of the lower extremity arterial system bilaterally in addition to duplex Doppler techniques with wave form analysis and measurement of velocities in the common femoral, profunda femoral, superficial femoral, popliteal and tibial arteries. The study was performed only at rest. COMPARISON: Previous exam October 2019 FINDINGS: a) AT REST: RIGHT LE. The right ankle-brachial index is: 0.97 2. Right ankle pressure: normal. 3. Right ankle PVR waveform: normal. 4. Right direct duplex Doppler findings: There is evidence of atherosclerotic disease with vessel wall calcification. There is a marked wall thickening and luminal narrowing of the distal superficial femoral artery. There is a prominent collateral vessel. There is evidence of mild atherosclerotic disease and stenosis of the popliteal artery. There areas of segmental stenosis of the visualized right posterior tibial artery. * Common femoral artery: 172 cm/s, Diastolic flow reversal: Yes * Superficial femoral artery (proximal, mid, distal): 138, 212 and 154 cm/s, Diastolic flow reversal: Biphasic waveform proximally and triphasic waveform in the mid and distal SFA. * Popliteal artery: 156 cm/s, Diastolic flow reversal: Yes * Posterior tibial artery: 82 cm/s, Diastolic flow reversal: No. Monophasic flow LEFT LE. The left ankle-brachial index is: 0.56 2. Left ankle pressure: Slightly decreased 3. Left ankle PVR waveform: Slightly dampened 4. Left direct duplex Doppler findings: There is significant atherosclerotic plaque seen in the left common femoral artery. * Common femoral artery: 125 cm/s, Diastolic flow reversal: No * Superficial femoral artery (proximal, mid, distal): 126, 62 and 51 cm/s, Diastolic flow reversal: No. Monophasic flow. * Popliteal artery: 159 cm/s, Diastolic flow reversal: No. Monophasic flow. * Posterior tibial artery: 53 cm/s, Diastolic flow reversal: No. Monophasic flow. Left profunda peak stalk velocity is markedly elevated at 438 cm/s suggestive of stenosis. ESTHER Reference: * >0.97-1.25 = normal - no significant arterial disease * 0.75-0.96 = mild peripheral arterial disease * 0.5-0.74 = moderate peripheral arterial disease * <0.50 = severe peripheral arterial disease US/US ESTHER complete IMPRESSION: Right: Right distal SFA disease with collateral vessels seen. Diseased right posterior tibial artery. The right ESTHRE is 0.97 which is normal. Left: Significant calcified plaque in the left common femoral artery. Elevated peak systolic velocity in the profunda suggestive of stenosis. Monophasic flow seen throughout the left lower extremity. The left ESTHER is 0.56 suggestive of moderate obstructive atherosclerotic disease.
== END 2020-05-30 12:55 | disposition home or self-care (01) ==
LOC: HO.US 12:54
PROVIDERS: Visit Provider Surgery Vascular Surgery
DX: I70.213 Atherosclerosis of native arteries of extremities with intermittent claudication, bilateral legs (principal)
CPT/HCPCS: 93923; 93925

== ENCOUNTER → 2020-06-07 12:55 | Outpatient (BNVA) | payer MEDICARE, SELFPAY | PROVIDERS: PCP Internal Medicine; Visit Provider Surgery Vascular Surgery | DX: I73.9 Peripheral vascular disease, unspecified (principal) | CPT/HCPCS: 99212 ==

== ENCOUNTER 2020-10-05 09:38 | Outpatient (REF) | payer MEDICARE, SELFPAY ==
--- NOTE | ~2020-10-05 | FL_ITS ---
EXAMINATION: XR GI SERIES CLINICAL INFORMATION: Epigastric pain COMPARISON: None TECHNIQUE: Routine upper GI air-contrast study was performed. FINDINGS: On oral administration of thick barium and effervescent granules there is normal propagation bolus from the oral cavity through the pharynx, esophagus into stomach without any evidence of obstruction, narrowing or stricture. On placing patient supine and prone the course, caliber and peristalsis of the stomach is normal. No gastroesophageal reflux or hiatal hernia was seen during exam. FLUOROSCOPY TIME: 1.8 minutes DOSE AREA PRODUCT: 42.986 uGy-m2 (microgray-meter squared) FL/FL upper GI series IMPRESSION: Unremarkable upper GI air contrast study.
[2020-10-05 10:54] LABS: Estimated Average Glucose 174 mg/dL; Hemoglobin A1c % 7.7 %
[2020-10-05 11:10] LABS: Alanine Aminotransferase 19 U/L (0-40); Albumin Level 4.3 g/dL (3.5-5.0); Alkaline Phosphatase 85 U/L (39-117); Anion Gap 13 (12-20); Aspartate Amino Transferase 18 U/L (5-37); Bilirubin Total 0.4 mg/dL (0.0-1.0); Blood Urea Nitrogen 20 mg/dL (9-16); C Reactive Protein 0.19 mg/dL (< or = 0.50); Calcium 9.3 mg/dL (8.4-10.2); Carbon Dioxide 23 mmol/L (22-29); Chloride 106 mmol/L (96-108); Estimated Glomerular Filt Rate > 60; Glucose Random 172 mg/dL (60-115); Lipase 22 U/L (8-78); Potassium 4.4 mmol/L (3.3-5.1); Sodium 138 mmol/L (135-145)
== END 2020-10-05 09:39 | disposition home or self-care (01) ==
LOC: HO.XRAY 09:38
PROVIDERS: PCP Internal Medicine; Visit Provider Internal Medicine
DX: R10.13 Epigastric pain (principal); I73.9 Peripheral vascular disease, unspecified; E11.9 Type 2 diabetes mellitus without complications; K21.9 Gastro-esophageal reflux disease without esophagitis
CPT/HCPCS: 36415; 74240; 80053; 83036; 83690; 86140

== ENCOUNTER 2020-11-06 19:40 | Observation (INO) | payer MEDICARE, SELFPAY ==
--- NOTE | ~2020-11-06 | MR_ITS ---
EXAMINATION: MR BRAIN WITHOUT CONTRAST CLINICAL INFORMATION: TIA. COMPARISON: CT from 11/06/2020. TECHNIQUE: Multiplanar, multisequence imaging of the brain was performed without contrast. FINDINGS: No diffusion abnormalities are identified to suggest an acute infarct. No hydrocephalus evident. No mass effect or midline shift is seen. Mild chronic white matter microangiopathic changes visible with a chronic infarct in the left frontal lobe. There is generalized parenchymal volume loss. There are small chronic lacunar infarcts in the left caudate head and right thalamus. No extra-axial fluid collections are seen. The brainstem and cerebellum are normal. Minimal hemosiderin staining visible in the left caudate head. The craniovertebral junction, marrow signal, and midline structures are normal. The major intracranial flow voids at the level of the [place] are preserved. The dural venous sinus flow voids are maintained. The mastoid air cells are well aerated. Mild patchy areas of mucosal thickening and aerosolized secretions visible in the paranasal sinuses. There is scar tissue and volume loss in the left parotid space, presumably from a prior parotidectomy. MR/MR head/brain wo con IMPRESSION: No acute intracranial process. Mild chronic white matter microangiopathy. Chronic infarcts in the left caudate head, right thalamus, and left frontal lobe.
--- NOTE | ~2020-11-06 | CT_ITS ---
EXAMINATION: CT ANGIOGRAM NECK WITH CONTRAST CT ANGIOGRAM BRAIN WITH CONTRAST CLINICAL INFORMATION: TIA. COMPARISON: Head CT November 06, 2020. TECHNIQUE: Test bolus sequences followed by intravenous administration 70 mL of Omnipaque 350. Helical imaging was performed in the axial plane from the thoracic inlet to the skull vertex. Delayed postcontrast imaging of the head was also performed. The data was processed at the sterile processing technologist workstation for generation of MIP sequences. Angled MIPs and volume rendered reformatted images were also generated at an offline 3D workstation. Stenoses are assessed in accordance with NASCET criteria unless otherwise indicated. This CT examination was performed using dose optimization techniques as appropriate, variously including the following: *Automated exposure control *Adjustment of mA and/or kV according to patient size (this includes techniques or standardized protocols for targeted exams where dose is matched to indication/reason for exam; i.e. extremities or head) *Use of iterative reconstruction technique DLP: 1676 mGy-cm FINDINGS: Head CT: There is no intracranial hemorrhage, extra-axial collection, mass effect, or acute large territory infarction. A chronic infarct is seen within the left frontal lobe involving the MCA vascular territory. Mild hypoattenuation is seen in the cerebral white matter compatible with chronic microangiopathy. There is no abnormal enhancement. The ventricles are normal in size and configuration without hydrocephalus. The dural venous sinuses are normally opacified. Paranasal sinus mucosal thickening is noted. Both mastoids are underpneumatized. The extracranial structures otherwise unremarkable. Neck CTA: Atheromatous changes are seen involving the aortic arch. The great vessel origins are patent. Atheromatous changes are seen at both carotid bifurcations without significant stenosis on the right and less than 50% stenosis on the left. The cervical segments of both internal carotid arteries are patent. Both vertebral artery cervical segments are patent. Head CTA: No proximal vessel occlusion is seen. Atheromatous changes are seen at both carotid siphons resulting in mild stenosis of the left paraclinoid ICA segment. There is focal severe stenosis of the right mid A2 LORENZA segment. The LORENZA distally is opacified. There is mild stenosis involving the right M2 MCA segment. Atheromatous changes are seen along the intradural segment of left vertebral artery with associated moderate stenosis. Right vertebral artery and basilar artery are patent. 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 No discrete aneurysm is seen. Non-vascular findings: Postoperative findings of left sided subtotal parotidectomy multilevel degenerative changes are seen in the spine. Are noted. No abnormal soft tissue seen within the surgical bed. CT/CT angio head neck IMPRESSION: CT head: No intracranial hemorrhage or large acute infarction. 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 Background changes of mild chronic microangiopathy. CTA neck: No hemodynamically significant stenosis in the major arteries of the neck. 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 No proximal vessel occlusion. No definite aneurysm.
--- NOTE | ~2020-11-06 | CT_ITS ---
EXAMINATION: CT HEAD WITHOUT CONTRAST (STROKE PROTOCOL) CLINICAL INFORMATION: Stroke protocol. Aphasia, resolved. Rule out stroke, bleed COMPARISON: None TECHNIQUE: Contiguous axial imaging was performed from the skull base to vertex without intravenous administration of contrast. This CT examination was performed using dose optimization techniques as appropriate, variously including the following: *Automated exposure control *Adjustment of mA and/or kV according to patient size (this includes techniques or standardized protocols for targeted exams where dose is matched to indication/reason for exam; i.e. extremities or head) *Use of iterative reconstruction technique DLP: 887 mGy-cm FINDINGS: There is no intracranial hemorrhage, hematoma, or extra-axial fluid collection. Mild enlargement of the ventricles, sulci, and extra-axial CSF spaces is indicative of parenchymal volume loss. There is no hydrocephalus, edema, or mass effect. The focal encephalomalacia is evident within the left operculum and adjacent perisylvian frontal lobe, suggestive of a prior infarct. There is a lacunar infarct at the left caudate head. [place]-white matter differentiation otherwise appears symmetric. There is no evidence of an acute infarct or mass lesion. A few foci of hypoattenuation in the subcortical and periventricular white matter are most consistent with chronic microangiopathic changes. The calvarium appears intact. There is no pneumocephalus or orbital emphysema. The visualized sinuses and middle ears and mastoid air cells show no significant mucosal thickening. There are no air-fluid levels. CT/CT head for stroke IMPRESSION: No acute intracranial pathology. Small region of encephalomalacia in the left frontal and opercular cortices (MCA distribution) suggesting prior infarct. Left caudate lacunar infarct. Mild chronic cerebral white matter microangiopathy. This critical result was discussed with Dr. Strauss at 8:04 PM on 11/06/2020. It was ascertained that the content and urgency of the report was understood at the time of direct communication.
--- NOTE | ~2020-11-06 | XR_ITS ---
EXAMINATION: XR CHEST CLINICAL INFORMATION: Aphasia. Shortness . COMPARISON: 01/28/2020 TECHNIQUE: AP portable upright view of the chest FINDINGS: No consolidation, pneumothorax, or pleural effusion. Cardiac and mediastinal contours are normal. Pulmonary vasculature is unremarkable. Degenerative disc disease is present in the thoracic spine. Calcific atherosclerosis is noted in the thoracic aorta. XR/XR chest 1V IMPRESSION: No acute cardiopulmonary findings
--- NOTE | 2020-11-06 19:46 | ECG_ITS ---
Test Reason : STROKE SYMPTOMS Blood Pressure : / mmHG Vent. Rate : 065 BPM Atrial Rate : 065 BPM P-R Int : 216 ms QRS Dur : 098 ms QT Int : 434 ms P-R-T Axes : 059 -08 090 degrees QTc Int : 451 ms Sinus rhythm with 1st degree A-V block Minimal voltage criteria for LVH, may be normal variant Nonspecific T wave abnormality Abnormal ECG When compared with ECG of 28-JAN-2020 09:27, Nonspecific T wave abnormality, worse in Lateral leads Referred By: Griffin Strauss Electronically Signed By:Socrates Ramsey
[2020-11-06 19:56] VITALS: BP 169/53; PULSE 66; RESP 19; TEMP 37.1; O2SAT 96; BMI 31.4
[2020-11-06 20:03] LABS: Prothrombin Time Whole Bld POC 12.5 sec (11.1-13.5)
[2020-11-06 20:10] LABS: MANUAL DIFF FLAG NO
--- NOTE | 2020-11-06 20:12 | PC.NURSE ---
PT ARRIVED TO ER ASYMPTOMATIC, SPEECH DIFFICULTY RESOLVED. PT NEVER EXPERIENCED ANY EXTREMITY WEAKNESS OR NUMBNESS. PT HAS STRONG EQUAL BILATERAL HAND GRASPS. EQUAL STRONG PLANTAR AND DORSIFLEXION. NO ARM DRIFT. NO FACIAL DROOP. CLEAR SPEECH.
[2020-11-06 20:13] LABS: Basophils Percent Auto 0.4 % (0-2); Eosinophils Absolute Auto 0.5 X10*3/uL (0.0-0.4); Eosinophils Percent Auto 6.5 % (0-4); Hematocrit 36.1 % (42-52); Hemoglobin 12.1 g/dl (14.0-18.0); Imm Gran Abs Auto 0.06 X10*3/uL (0.00-0.03); Imm Gran Pct Auto 0.7 % (0.0-0.4); Lymphocytes Absolute Auto 1.8 X10*3/uL (1.2-4.9); Lymphocytes Percent Auto 21.4 % (20-40); Mean Corpuscular HGB Conc 33.5 g/dl (31.0-36.0); Mean Corpuscular Hemoglobin 28.6 pg (27.0-33.0); Mean Corpuscular Volume 85.3 fL (80-98); Mean Platelet Volume 10.1 fL (9.4-12.4); Monocytes Percent Auto 12.2 % (2-11); Neutrophils Absolute Auto 4.9 X10*3/uL (2.0-8.3); Neutrophils Percent Auto 58.8 % (45-73); Platelet Count 205 X10*3/uL (160-400); Red Blood Count 4.23 X10*6/uL (4.60-5.80); Red Cell Distribution Width 13.6 % (11.0-16.0); White Blood Count 8.3 X10*3/uL (4.8-10.8)
--- NOTE | 2020-11-06 20:18 | ED_ITS ---
HPI - Neuro Symptoms/Deficit General Chief Complaint: Stroke Stated Complaint: stroke Time Seen by Provider: 11/06/20 19:46 Source: patient and family (Lesvia, patient's granddaughter who is a nurse) Mode of arrival: EMS Limitations: no limitations History of Present Illness HPI Narrative: 80-year-old male who presents emergency department for evaluation of difficulty speaking. The patient states that he was at home with his when he had difficulty communicating to her. The patient states that the symptoms started at 7:10 p.m.. Patient states that he was trying to tell his that he was going to change the channel on the television but his speech was incomprehensible. Patient was aware that he was having difficulty communicating. He was able to contact his son who also felt that the patient's speech was incomprehensible therefore his son called an ambulance. Patient states that the symptoms lasted approximately 3 minutes and then resolved. The patient had no other symptoms. He denied headache, chest pain, lightheadedness, dizziness, numbness or weakness. He currently has no complaints at the time of my evaluation. Patient states that he was told by his PCP that he had an abnormal CT scan and may have had a stroke/TIA in the past. The patient does not have a history of atrial fibrillation, he does not take any blood thinners but he does take 1 baby aspirin at night. Related Data Home Medications Medication Instructions Recorded Confirmed losartan 50 mg tablet 50 mg PO DAILY 01/06/20 11/06/20 metoprolol tartrate 25 mg tablet 25 mg PO DAILY 01/06/20 11/06/20 simvastatin 40 mg tablet 40 mg PO BEDTIME 01/06/20 11/06/20 glipizide 5 mg tablet 5 mg PO DAILY 01/25/20 11/06/20 isosorbide mononitrate 30 mg 15 mg PO DAILY 01/25/20 11/06/20 tablet,extended release 24 hr nitroglycerin 0.4 mg sublingual 0.4 mg SUBLINGUAL Q5M PRN 01/25/20 11/06/20 tablet Previous Rx's Medication Instructions Recorded aluminum-mag hydroxide-simethicone 10 ml PO Q6H PRN #3000 ml 01/28/20 200 mg-200 mg-20 mg/5 mL oral susp (Maalox Advanced) omeprazole 10 mg capsule,delayed 10 mg PO DAILY 14 Days #14 cap 01/28/20 release Allergies Allergy/AdvReac Type Severity Reaction Status Date / Time No Known Allergies Allergy Verified 11/06/20 20:11 [No Known Allergies*] Review of Systems Review of Systems: Yes all other systems are reviewed and are negative [facility] Past Medical History [facility] Narrative: Social history: The patient lives at home with his . He states that he is a former smoker and quit smoking 50 years prior. He smoked for at least 20 years. He denied alcohol and drug use. 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 Medical History Anemia Angina pectoris Arthritis CAD (coronary artery disease) Diabetes Environmental allergies History of prostate cancer Hx of malignant melanoma Hyperlipidemia Hypertension Peripheral artery disease Sleep apnea Surgical History H/O arthroscopy of right knee Hx of appendectomy Hx of cholecystectomy Hx of colonoscopy Hx of foot surgery Hx of tonsillectomy S/P aortogram with runoff S/P cardiac cath Social History Social History Household Members: Spouse Housing: House Are you a primary clinical care manager to a significant other at home: Yes ( AT HOME HAD CVA) Do you presently have visiting nurse or other home services: No Alcohol intake: never Second Hand Smoke Exposure: No Advance Directives: No Advance Directives Information Provided: No Physical Exam Vital Signs: Vital Signs: Last Vital Signs Temp 98.6 F 11/06/20 21:54 Pulse 58 11/06/20 21:54 Resp 19 11/06/20 21:54 BP 166/57 H 11/06/20 21:54 Pulse Ox 94 11/06/20 21:54 Body Mass Index 31.4 Const: General: cooperative and no acute distress Orientation/consciousness: oriented to person and oriented to place Limitations: no limitations HENMT: Head: Yes normal to inspection, Yes normocephalic and Yes atraumatic Ears: external ears normal General nose exam: Normal external nose present Face and sinus: Yes normal facial exam Mouth: Normal oral and palatal mucosa present Throat: Yes posterior oropharynx normal Eyes: General: appearance normal, both eyes and all related structures Pupils: Equal, round and reactive pupils present Neck: Neck: Yes normal visual inspection, Yes no lymphadenopathy, Yes trachea midline and Yes supple Chest: Chest palpation & inspection: normal inspection of the chest and normal palpation of entire chest wall Resp: Effort & Inspection: normal respiratory effort and able to speak in complete sentences Auscultation: clear to auscultation bilaterally Cardio: Rate: regular rate Rhythm: regular rhythm Heart sounds: S1 normal heart sound present, S2 normal heart sound present and no murmurs GI: Inspection: Yes normal to inspection Palpation (GI): Soft to palpation, nontender and no guarding Auscultation: normal bowel sounds : General: Yes no CVA tenderness Back/Spine/Pelvis: Back: no CVA tenderness Skin: General skin exam: no rashes or lesions noted Neuro: General: oriented to person and oriented to place Cranial nerves: Yes CN's II-XII intact bilaterally and Yes Equal, round and reactive pupils p resent Cognition (Neuro): normal cognition Motor exam (neuro): 5/5 motor strength present throughout Extrem: General: Yes normal to inspection Psych: Appearance: grossly normal Speech and movement: Normal speech and movement present Affect: normal affect Attitude: cooperative Thought process: Normal thought process present Thought content: Normal thought content present Course Course Course Narrative: 80-year-old male who presents emergency department for evaluation of incomprehensible speech with last with known well time at 7:10 p.m., the symptoms lasted approximately 3 minutes and then resolved. Patient had no complaints at the time of evaluation and had no prodromal symptoms. Physical examination was normal, an NIH stroke scale was 0. CT scan of the head revealed no acute intracranial pathology. There was a small region of encephalomalacia in the left frontal and opercular cortices (MCA distribution) suggesting prior infarct. Left caudate lacunar infarct. Mild chronic cerebral white matter microangiopathy . Given the complete resolution of the patient's symptoms and his normal neurologic exam, I do not think that this patient is tPA candidate. I will discuss this with our covering neurologist. 2037: I did discuss the patient's presentation with the covering neurologist, Brendan Childs. He agreed that the patient was not a tPA candidate and that the patient should be admitted for further evaluation of possible TIA. 2203: The patient's laboratory evaluation was unremarkable. Alcohol levels below detectable limits. The patient's COVID-19 test was negative. I will di scuss the patient's presentation with the covering hospitalist. 2320: I did discuss the presence presentation with the covering hospitalist and the patient will be admitted for further workup. MDM - Neuro Symptoms/Deficit Lab Data Result diagrams: 11/06/20 20:04 11/06/20 20:04 Labs: Lab Results 11/06/20 11/06/20 11/06/20 Range/Units 19:56 20:04 20:04 WBC 8.3 (4.8-10.8) X10*3/uL RBC 4.23 L (4.60-5.80) X10*6/uL Hgb 12.1 L (14.0-18.0) g/dl Hct 36.1 L (42-52) % MCV 85.3 (80-98) fL MCH 28.6 (27.0-33.0) pg MCHC 33.5 (31.0-36.0) g/dl RDW 13.6 (11.0-16.0) % Plt Count 205 (160-400) X10*3/uL MPV 10.1 (9.4-12.4) fL Immature Gran % (Auto) 0.7 H (0.0-0.4) % Neut % (Auto) 58.8 (45-73) % Lymph % (Auto) 21.4 (20-40) % [place] % (Auto) 12.2 H (2-11) % Eos % (Auto) 6.5 H (0-4) % Baso % (Auto) 0.4 (0-2) % Lymph # (Auto) 1.8 (1.2-4.9) X10*3/uL [place] # (Auto) 1.0 (0.1-1.2) X10*3/uL Eos # (Auto) 0.5 H (0.0-0.4) X10*3/uL Baso # (Auto) 0.0 (0.0-0.2) X10*3/uL Abs Immat Gran (auto) 0.06 H (0.00-0.03) X10*3/uL Absolute Neuts (auto) 4.9 (2.0-8.3) X10*3/uL Absolute Nucleated RBC 0.000 (0.0-0.012) X10*3/uL Nucleated RBC % (auto) 0.0 (0.0-0.2) /100WBC PT 11.4 (9.9-13.0) SEC Whole Blood PT 12.5 (11.1-13.5) sec INR 1.0 (0.9-1.1) Whole Blood INR 1.0 (0.9-1.1) APTT 34.6 (24.1-38.0) SEC Sodium (135-145) mmol/L Potassium (3.3-5.1) mmol/L Chloride (96-108) mmol/L Carbon Dioxide (22-29) mmol/L Anion Gap (12-20) BUN (9-16) mg/dL Creatinine (0.5-1.4) mg/dL Estim Creat Clear Calc Estimated GFR POC Glucose (60-115) mg/dL Random Glucose (60-115) mg/dL Calcium (8.4-10.2) mg/dL Total Bilirubin (0.0-1.0) mg/dL Direct Bilirubin (0.0-0.5) mg/dL AST (5-37) U/L ALT (0-40) U/L Alkaline Phosphatase (39-117) U/L Total Creatine Kinase (38-174) U/L Troponin I High Sens (<3.5-35.0) ng/L Total Protein (6.5-8.0) g/dL Albumin (3.5-5.0) g/dL Urine Color Urine Appearance Urine pH (5.0-8.0) Ur Specific [place] (1.005-1.025) Urine Protein (NEG-TRACE) MG/DL Urine Glucose (UA) (NEG) MG/DL Urine Ketones (NEG) MG/DL Urine Blood (NEG) Urine Nitrite (NEG) Ur Leukocyte Esterase (NEG) Ethyl Alcohol mg/dL COVID-19 (EDGAR) (Negative) COVID-19 Clin Com 11/06/20 11/06/20 11/06/20 Range/Units 20:04 20:04 20:04 WBC (4.8-10.8) X10*3/uL RBC (4.60-5.80) X10*6/uL Hgb (14.0-18.0) g/dl Hct (42-52) % MCV (80-98) fL MCH (27.0-33.0) pg MCHC (31.0-36.0) g/dl RDW (11.0-16.0) % Plt Count (160-400) X10*3/uL MPV (9.4-12.4) fL Immature Gran % (Auto) (0.0-0.4) % Neut % (Auto) (45-73) % Lymph % (Auto) (20-40) % [place] % (Auto) (2-11) % Eos % (Auto) (0-4) % Baso % (Auto) (0-2) % Lymph # (Auto) (1.2-4.9) X10*3/uL [place] # (Auto) (0.1-1.2) X10*3/uL Eos # (Auto) (0.0-0.4) X10*3/uL Baso # (Auto) (0.0-0.2) X10*3/uL Abs Immat Gran (auto) (0.00-0.03) X10*3/uL Absolute Neuts (auto) (2.0-8.3) X10*3/uL Absolute Nucleated RBC (0.0-0.012) X10*3/uL Nucleated RBC % (auto) (0.0-0.2) /100WBC PT (9.9-13.0) SEC Whole Blood PT (11.1-13.5) sec INR (0.9-1.1) Whole Blood INR (0.9-1.1) APTT (24.1-38.0) SEC Sodium 140 (135-145) mmol/L Potassium 4.3 (3.3-5.1) mmol/L Chloride 107 (96-108) mmol/L Carbon Dioxide 22 (22-29) mmol/L Anion Gap 15 (12-20) BUN 23 H (9-16) mg/dL Creatinine 1.26 (0.5-1.4) mg/dL Estim Creat Clear Calc 56.9 Estimated GFR 55 POC Glucose (60-115) mg/dL Random Glucose 234 H D (60-115) mg/dL Calcium 9.0 (8.4-10.2) mg/dL Total Bilirubin 0.3 (0.0-1.0) mg/dL Direct Bilirubin < 0.2 (0.0-0.5) mg/dL AST 18 (5-37) U/L ALT 14 (0-40) U/L Alkaline Phosphatase 100 (39-117) U/L Total Creatine Kinase 116 (38-174) U/L Troponin I High Sens 4.7 (<3.5-35.0) ng/L Total Protein 6.6 (6.5-8.0) g/dL Albumin 3.8 (3.5-5.0) g/dL Urine Color Urine Appearance Urine pH (5.0-8.0) Ur Specific [place] (1.005-1.025) Urine Protein (NEG-TRACE) MG/DL Urine Glucose (UA) (NEG) MG/DL Urine Ketones (NEG) MG/DL Urine Blood (NEG) Urine Nitrite (NEG) Ur Leukocyte Esterase (NEG) Ethyl Alcohol < 10 mg/dL COVID-19 (EDGAR) (Negative) COVID-19 Clin Com 11/06/20 11/06/20 11/06/20 Range/Units 20:07 20:31 21:55 WBC (4.8-10.8) X10*3/uL RBC (4.60-5.80) X10*6/uL Hgb (14.0-18.0) g/dl Hct (42-52) % MCV (80-98) fL MCH (27.0-33.0) pg MCHC (31.0-36.0) g/dl RDW (11.0-16.0) % Plt Count (160-400) X10*3/uL MPV (9.4-12.4) fL Immature Gran % (Auto) (0.0-0.4) % Neut % (Auto) (45-73) % Lymph % (Auto) (20-40) % [place] % (Auto) (2-11) % Eos % (Auto) (0-4) % Baso % (Auto) (0-2) % Lymph # (Auto) (1.2-4.9) X10*3/uL [place] # (Auto) (0.1-1.2) X10*3/uL Eos # (Auto) (0.0-0.4) X10*3/uL Baso # (Auto) (0.0-0.2) X10*3/uL Abs Immat Gran (auto) (0.00-0.03) X10*3/uL Absolute Neuts (auto) (2.0-8.3) X10*3/uL Absolute Nucleated RBC (0.0-0.012) X10*3/uL Nucleated RBC % (auto) (0.0-0.2) /100WBC PT (9.9-13.0) SEC Whole Blood PT (11.1-13.5) sec INR (0.9-1.1) Whole Blood INR (0.9-1.1) APTT (24.1-38.0) SEC Sodium (135-145) mmol/L Potassium (3.3-5.1) mmol/L Chloride (96-108) mmol/L Carbon Dioxide (22-29) mmol/L Anion Gap (12-20) BUN (9-16) mg/dL Creatinine (0.5-1.4) mg/dL Estim Creat Clear Calc Estimated GFR POC Glucose 227 H (60-115) mg/dL Random Glucose (60-115) mg/dL Calcium (8.4-10.2) mg/dL Total Bilirubin (0.0-1.0) mg/dL Direct Bilirubin (0.0-0.5) mg/dL AST (5-37) U/L ALT (0-40) U/L Alkaline Phosphatase (39-117) U/L Total Creatine Kinase (38-174) U/L Troponin I High Sens (<3.5-35.0) ng/L Total Protein (6.5-8.0) g/dL Albumin (3.5-5.0) g/dL Urine Color YELLOW Urine Appearance CLEAR Urine pH 6.0 (5.0-8.0) Ur Specific [place] 1.025 (1.005-1.025) Urine Protein NEG (NEG-TRACE) MG/DL Urine Glucose (UA) 500 H (NEG) MG/DL Urine Ketones 5 (NEG) MG/DL Urine Blood NEG (NEG) Urine Nitrite NEG (NEG) Ur Leukocyte Esterase NEG (NEG) Ethyl Alcohol mg/dL COVID-19 (EDGAR) Negative (Negative) COVID-19 Clin Com See Note NIH Stroke Scale Level of Consciousness: Alert Level of Consciousness Questions: Answers both questions correctly Level of Consciousness Commands: Performs both tasks correctly Best Gaze: Normal Visual: No visual loss Facial Palsy: Normal Motor Arm (Right): No drift Motor Arm (Left): No drift Motor Leg (Right): No drift Motor Leg (Left): No drift Limb Ataxia: Absent Sensory: Normal Best Language: No aphasia Dysarthia: Normal Extinction and Inattention: No abnormality Score: 0 Discharge Plan Discharge Clinical Impression: Aphasia Patient Disposition: Admitted As Inpatient Prescriptions: No Action simvastatin 40 mg Tablet 40 mg PO BEDTIME RF: 0 losartan 50 mg Tablet 50 mg PO DAILY RF: 0 metoprolol tartrate 25 mg Tablet 25 mg PO DAILY RF: 0 isosorbide mononitrate 30 mg Tablet Extended Release 24 Hr 15 mg PO DAILY RF: 0 nitroglycerin 0.4 mg Tablet, Sublingual 0.4 mg SUBLINGUAL Q5M PRN (Reason: Chest Pain) RF: 0 glipizide 5 mg Tablet 5 mg PO DAILY RF: 0 omeprazole 10 mg capsule,delayed release(DR/EC) 10 mg PO DAILY 14 Days Qty: 14 RF: 0 alum-mag hydroxide-simeth [Maalox Advanced] 200-200-20 mg/5 mL suspension 10 ml PO Q6H PRN (Reason: indigestion) Qty: 3000 RF: 0
[2020-11-06 20:19] LABS: Prothrombin Time 11.4 SEC (9.9-13.0)
[2020-11-06 20:21] LABS: Glucose, Whole Blood 227 mg/dL (60-115)
[2020-11-06 20:22] LABS: Partial Thromboplastin Time 34.6 SEC (24.1-38.0)
[2020-11-06 20:41] VITALS: BP 151/58; PULSE 64; RESP 17; O2SAT 95
[2020-11-06 20:54] LABS: Ethanol < 10 mg/dL; Troponin-I High Sensitivity 4.7 ng/L (<3.5-35.0)
[2020-11-06 20:58] LABS: Alanine Aminotransferase 14 U/L (0-40); Albumin Level 3.8 g/dL (3.5-5.0); Alkaline Phosphatase 100 U/L (39-117); Anion Gap 15 (12-20); Aspartate Amino Transferase 18 U/L (5-37); Bilirubin Direct < 0.2 mg/dL (0.0-0.5); Bilirubin Total 0.3 mg/dL (0.0-1.0); Blood Urea Nitrogen 23 mg/dL (9-16); Carbon Dioxide 22 mmol/L (22-29); Chloride 107 mmol/L (96-108); Creatinine Clr Calc Pharmacy 56.9; Estimated Glomerular Filt Rate 55; Glucose Random 234 mg/dL (60-115); Potassium 4.3 mmol/L (3.3-5.1); Sodium 140 mmol/L (135-145); Total Protein 6.6 g/dL (6.5-8.0)
[2020-11-06 20:58] LABS: COVID-19 Test Negative (Negative)
[2020-11-06 20:59] LABS: Stroke Lab Use COMPLETE
[2020-11-06] MEDS: Aspirin 81 MG TAB.CHEW 324 MG PO (21:04)
[2020-11-06 21:11] VITALS: BP 149/64; PULSE 59; RESP 16; O2SAT 95
[2020-11-06 21:54] VITALS: BP 166/57; PULSE 58; RESP 19; TEMP 37; O2SAT 94
[2020-11-06 22:17] LABS: Glucose Urine UA 500 MG/DL (NEG); Leukocyte Esterase Urine NEG (NEG); Nitrite Urine NEG (NEG); Specific Gravity - Urine 1.025 (1.005-1.025); Urine Blood NEG (NEG); Urine Ketones 5 MG/DL (NEG); Urine Protein NEG (NEG-TRACE)
[2020-11-06 22:21] LABS: Appearance Urine CLEAR; Color Urine YELLOW
--- NOTE | 2020-11-06 23:43 | PM.IMHP ---
History of Present Illness Date of Service: 11/06/20 Chief Complaint: aphasia This is an 80-year-old male with past medical history of CAD, diabetes, HTN, HLD, peripheral artery disease status post stents in the lower extremity, sleep apnea who presents to the hospital with complaints of transient episode of difficulty speaking. Patient reports that he was sitting with his family when he wanted to tell his to change the channel, he was able to speak but he the worse that came out of his mouth made no sense and to him or to his . He reports that he tried 2 more times and results were the same, therefore he realize he may be going through a stroke, he called his son and even by calling his son he made no sense but his son realized that patient may be having a stroke and called EMS. Patient reports that after 2-3 minutes his symptoms resolved and he was able to speak and able to comprehend himself. Denies any previous similar episode although reports that he was found to on incidental CT imaging to have a small stroke many years ago. He denies any numbness tingling or weakness in any of his extremities, no numbness in the face, no facial droop. He denies any chest pain, no palpitations, no shortness of breath, no abdominal pain nausea or vomiting, no diarrhea constipation, no urinary symptoms. No headache or change in vision. On arrival to the ED hemodynamically stable with no significant abnormal vitals Labs are significant for WBC count of 8.3, hemoglobin of 12.1, hematocrit 36.1, otherwise unremarkable. Head CT shows small region of encephalomalacia in the left frontal and operculum cortices suggesting prior infarct. Left caudate lacunar infarct. Mild chronic cerebral white matter microangiopathy. Case was discussed with Neurology and patient will be admitted for further management. Review of Systems Review of Systems: Yes all other systems are reviewed and are negative [facility] Medical History Anemia Angina pectoris Arthritis CAD (coronary artery disease) Diabetes Environmental allergies History of prostate cancer Hx of malignant melanoma Hyperlipidemia Hypertension Peripheral artery disease Sleep apnea Surgical History H/O arthroscopy of right knee Hx of appendectomy Hx of cholecystectomy Hx of colonoscopy Hx of foot surgery Hx of tonsillectomy S/P aortogram with runoff S/P cardiac cath Social History Household Members: Spouse Housing: House Are you a primary post acute care registered nurse to a significant other at home: Yes ( AT HOME HAD CVA) Do you presently have visiting nurse or other home services: No Alcohol intake: never Patient Tobacco Use Status: Never used Tobacco Second Hand Smoke Exposure: No Advance Directives: No Advance Directives Information Provided: No Meds Allergies Allergy/AdvReac Type Severity Reaction Status Date / Time No Known Allergies Allergy Verified 11/06/20 20:11 [No Known Allergies*] Home Medications Medication Instructions Recorded Confirmed Last Taken Type losartan 50 mg tablet 50 mg PO DAILY 01/06/20 11/06/20 Unknown History metoprolol tartrate 25 mg tablet 25 mg PO DAILY 01/06/20 11/06/20 Unknown History simvastatin 40 mg tablet 40 mg PO BEDTIME 01/06/20 11/06/20 Unknown History glipizide 5 mg tablet 5 mg PO DAILY 01/25/20 11/06/20 Unknown History isosorbide mononitrate 30 mg 15 mg PO DAILY 01/25/20 11/06/20 Unknown History tablet,extended release 24 hr nitroglycerin 0.4 mg sublingual 0.4 mg SUBLINGUAL Q5M PRN 01/25/20 11/06/20 Unknown History tablet Physical Exam Vital Signs and Narrative: Vital Signs: Last Vital Signs Temp 98.6 F 11/06/20 21:54 Pulse 58 11/06/20 21:54 Resp 19 11/06/20 21:54 BP 166/57 H 11/06/20 21:54 Pulse Ox 94 11/06/20 21:54 Body Mass Index 31.4 Const: General: cooperative and no acute distress Orientation/consciousness: patient oriented x3 Eyes: General: appearance normal, both eyes and all related structures Pupils: Equal, round and reactive pupils present Resp: Effort & Inspection: normal respiratory effort and able to speak in complete sentences Auscultation: clear to auscultation bilaterally Cardio: Rate: regular rate Rhythm: regular rhythm GI: Palpation (GI): Soft to palpation Auscultation: normal bowel sounds Skin: General skin exam: no rashes or lesions noted Neuro: Other: No neurological deficits, strength 5/5 in upper and lower extremities General: patient oriented x3 Cranial nerves: Yes Equal, round and reactive pupils present Cognition (Neuro): normal cognition Extrem: General: Yes normal to inspection and Yes no pedal edema Results Labs CBC and Chem 7: 11/06/20 20:04 11/06/20 20:04 Labs: Laboratory Results - last 24 hr 11/06/20 11/06/20 11/06/20 19:56 20:04 20:04 MCV 85.3 MCH 28.6 MCHC 33.5 RDW 13.6 Plt Count 205 MPV 10.1 Immature Gran % (Auto) 0.7 H Neut % (Auto) 58.8 Lymph % (Auto) 21.4 [place] % (Auto) 12.2 H Eos % (Auto) 6.5 H Baso % (Auto) 0.4 Lymph # (Auto) 1.8 [place] # (Auto) 1.0 Eos # (Auto) 0.5 H Baso # (Auto) 0.0 Abs Immat Gran (auto) 0.06 H Absolute Neuts (auto) 4.9 Absolute Nucleated RBC 0.000 Nucleated RBC % (auto) 0.0 PT 11.4 Whole Blood PT 12.5 INR 1.0 Whole Blood INR 1.0 APTT 34.6 Anion Gap Estim Creat Clear Calc Estimated GFR POC Glucose Random Glucose Calcium Total Bilirubin Direct Bilirubin AST ALT Alkaline Phosphatase Total Creatine Kinase Troponin I High Sens Total Protein Albumin Urine Color Urine Appearance Urine pH Ur Specific [place] Urine Protein Urine Glucose (UA) Urine Ketones Urine Blood Urine Nitrite Ur Leukocyte Esterase Ethyl Alcohol COVID-19 ([facility]GAR) COVID-19 Clin Com 11/06/20 11/06/20 11/06/20 20:04 20:04 20:04 MCV MCH MCHC RDW Plt Count MPV Immature Gran % (Auto) Neut % (Auto) Lymph % (Auto) [place] % (Auto) Eos % (Auto) Baso % (Auto) Lymph # (Auto) [place] # (Auto) Eos # (Auto) Baso # (Auto) Abs Immat Gran (auto) Absolute Neuts (auto) Absolute Nucleated RBC Nucleated RBC % (auto) PT Whole Blood PT INR Whole Blood INR APTT Anion Gap 15 Estim Creat Clear Calc 56.9 Estimated GFR 55 POC Glucose Random Glucose 234 H D Calcium 9.0 Total Bilirubin 0.3 Direct Bilirubin < 0.2 AST 18 ALT 14 Alkaline Phosphatase 100 Total Creatine Kinase 116 Troponin I High Sens 4.7 Total Protein 6.6 Albumin 3.8 Urine Color Urine Appearance Urine pH Ur Specific [place] Urine Protein Urine Glucose (UA) Urine Ketones Urine Blood Urine Nitrite Ur Leukocyte Esterase Ethyl Alcohol < 10 COVID-19 (EDGAR) COVID-19 Clin Com 11/06/20 11/06/20 11/06/20 20:07 20:31 21:55 MCV MCH MCHC RDW Plt Count MPV Immature Gran % (Auto) Neut % (Auto) Lymph % (Auto) [place] % (Auto) Eos % (Auto) Baso % (Auto) Lymph # (Auto) [place] # (Auto) Eos # (Auto) Baso # (Auto) Abs Immat Gran (auto) Absolute Neuts (auto) Absolute Nucleated RBC Nucleated RBC % (auto) PT Whole Blood PT INR Whole Blood INR APTT Anion Gap Estim Creat Clear Calc Estimated GFR POC Glucose 227 H Random Glucose Calcium Total Bilirubin Direct Bilirubin AST ALT Alkaline Phosphatase Total Creatine Kinase Troponin I High Sens Total Protein Albumin Urine Color YELLOW Urine Appearance CLEAR Urine pH 6.0 Ur Specific [place] 1.025 Urine Protein NEG Urine Glucose (UA) 500 H Urine Ketones 5 Urine Blood NEG Urine Nitrite NEG Ur Leukocyte Esterase NEG Ethyl Alcohol COVID-19 (EDGAR) Negative COVID-19 Clin Com See Note Imaging Radiologist's Impressions: Impressions Chest X-Ray 11/06/20 19:46 IMPRESSION: No acute cardiopulmonary findings Head CT 11/06/20 19:46 IMPRESSION: No acute intracranial pathology. Small region of encephalomalacia in the left frontal and opercular cortices (MCA distribution) suggesting prior infarct. Left caudate lacunar infarct. Mild chronic cerebral white matter microangiopathy. This critical result was discussed with Dr. Strauss at 8:04 PM on 11/06/2020. It was ascertained that the content and urgency of the report was understood at the time of direct communication. Assessment and Plan (1) Expressive aphasia: Status: Acute 80-year-old male with past medical history of diabetes, hypertension, hyperlipidemia, CAD, PAD who presents to hospital with expressive aphasia # expressive aphasia - transient - sepsis secondary to TIA - patient with history of old strokes on CT of the head - has extensive risk factors - at this time will admit, obtain MRI of the brain CT a head and neck echocardiogram - consult neurology - started on aspirin and high-dose statin # history of CAD - continue metoprolol # diabetes - hold oral antihyperglycemics - start low-dose sliding scale insulin - diabetic diet # hypertension - stable - continue losartan DVT prophylaxis: lovenox Quality Stroke Does the patient have a stroke diagnosis?: No VTE Prior VTE?: No VTE Risk Level:: Medical - moderate - high VTE Device Contraindication: Treatment Not Indicated VTE Drug Contraindication: N/A - Med Ordered
[2020-11-06 23:46] VITALS: BP 175/65; PULSE 58; RESP 20; O2SAT 95
[2020-11-07] VITALS (9 sets, daily range): BP systolic 140–170; BP diastolic 60–82; PULSE 52–65; RESP 18–20; TEMP 36.4–37.2; O2SAT 95–100; BMI 30.9
--- NOTE | 2020-11-07 00:36 | PC.NURSE ---
pt awake and alert, watching tv. pt independant at home, ambulatory at home without assist. pt remains asymptomatic while in er of any stroke like symptoms. pt able to drink clear liquids without coughing or choking. pt had water and pudding earlier in the evening.
[2020-11-07] MEDS: Enoxaparin Sodium 40 MG/0.4 ML SYRINGE SUBCUT ×2 (00:39→22:46)
[2020-11-07] MEDS: Atorvastatin Calcium 40 MG TABLET PO ×2 (00:39→20:19)
--- NOTE | 2020-11-07 00:40 | PC.NURSE ---
report called to floor, pt ready for discharge.
[2020-11-07] MEDS: 0.9 % Sodium Chloride Flush 3 ML SYRINGE IVFLUSH ×3 (01:09→20:19)
[2020-11-07 01:24] LABS: Glucose, Whole Blood 195 mg/dL (60-115)
[2020-11-07 06:36] LABS: MANUAL DIFF FLAG NO
[2020-11-07 06:42] LABS: Basophils Percent Auto 0.4 % (0-2); Eosinophils Absolute Auto 0.5 X10*3/uL (0.0-0.4); Eosinophils Percent Auto 6.8 % (0-4); Hematocrit 37.6 % (42-52); Hemoglobin 12.3 g/dl (14.0-18.0); Imm Gran Abs Auto 0.05 X10*3/uL (0.00-0.03); Imm Gran Pct Auto 0.7 % (0.0-0.4); Lymphocytes Absolute Auto 1.8 X10*3/uL (1.2-4.9); Mean Corpuscular HGB Conc 32.7 g/dl (31.0-36.0); Mean Corpuscular Hemoglobin 28.2 pg (27.0-33.0); Mean Corpuscular Volume 86.2 fL (80-98); Mean Platelet Volume 10.1 fL (9.4-12.4); Monocytes Percent Auto 13.5 % (2-11); Neutrophils Absolute Auto 4.3 X10*3/uL (2.0-8.3); Neutrophils Percent Auto 55.6 % (45-73); Platelet Count 181 X10*3/uL (160-400); Red Blood Count 4.36 X10*6/uL (4.60-5.80); Red Cell Distribution Width 13.7 % (11.0-16.0); White Blood Count 7.6 X10*3/uL (4.8-10.8)
[2020-11-07 07:14] LABS: Anion Gap 12 (12-20); Blood Urea Nitrogen 19 mg/dL (9-16); Carbon Dioxide 24 mmol/L (22-29); Chloride 108 mmol/L (96-108); Creatinine Clr Calc Pharmacy 74.8; Estimated Glomerular Filt Rate > 60; Glucose Random 163 mg/dL (60-115); Potassium 4.1 mmol/L (3.3-5.1); Sodium 140 mmol/L (135-145)
[2020-11-07] MEDS: iohexoL 350 MG/ML 100 ML INFUS..BTL IV (07:14)
[2020-11-07 07:26] LABS: Glucose, Whole Blood 162 mg/dL (60-115)
[2020-11-07] MEDS: Aspirin Enteric Coated 81 MG TABLET.DR PO (07:49)
[2020-11-07] MEDS: Insulin Lispro 100 UNIT/ML 3 ML VIAL SUBCUT ×3 (07:49→21:11)
[2020-11-07] MEDS: Metoprolol Tartrate 25 MG TABLET PO (07:49)
[2020-11-07] MEDS: Isosorbide Mononitrate 30 MG TAB.ER.24H 15 MG PO (07:49)
[2020-11-07] MEDS: Losartan Potassium 50 MG TABLET PO (07:50)
--- NOTE | 2020-11-07 10:26 | PM.NEUROCN ---
History of Present Illness Data of Consult Service Date: 11/07/20 Primary Care Provider: Unknown Physician HPI Reason for consult: Two-minute episode of transient expressive dysphasia This is a 80-year-old man with multiple stroke risk factors including five-year history off type 2 diabetes, hypertension, hyperlipidemia, coronary artery disease and peripheral arterial disease with a previous known left frontal infarct on CT which had been asymptomatic who presented with a 2 min. episode of transient expressive aphagia. He was talking to his and wanting to turn her that he was turned the DVR for but only jumbled words came out and he knew he didn't make any sense. He then called his son who also recognize that he was not making sense they head well puller. Within 2 min., his symptoms had resolved and he was able to communicate effectively. He had no headache, dizziness, visual disturbance, lateralized weakness or numbness. She has felt fine since then. There was no chest pain or palpitation. Review of Systems Review of Systems: Yes all other systems are reviewed and are negative Eyes: Eyes: Reports no additional eye complaints ENT: Reports system reviewed and no additional complaints, except as documented and Reports Normal hearing present Cardiovascular: Cardiovascular: Reports no additional cardiovascular complaints Respiratory: Respiratory: Reports no additional respiratory complaints Gastrointestinal: Gastrointestinal: Reports no additional gastrointestinal complaints Genitourinary: Genitourinary: Reports no additional male genitourinary complaints Musculoskeletal: Musculoskeletal: Reports no additional musculoskeletal complaints Integumentary/Breasts: Skin/Breast: Reports system reviewed and no additional complaints, except as docu Neurologic: Reports as per HPI and Reports Normal hearing present Psychiatric: Psychiatric: Reports as per HPI Endocrine: Endocrine: Reports no additional endocrine complaints Hematologic/Lymphatic: Hematologic/Lymphatic: Reports no additional hematologic/lymphatic complaints Allergic/Immunologic: Allergic/Immunologic: Reports no additional allergic/immunologic complaints PMF Past Medical History Medical History Anemia Angina pectoris Arthritis CAD (coronary artery disease) Diabetes Environmental allergies History of prostate cancer Hx of malignant melanoma Hyperlipidemia Hypertension Peripheral artery disease Sleep apnea Surgical History Surgical History H/O arthroscopy of right knee Hx of appendectomy Hx of cholecystectomy Hx of colonoscopy Hx of foot surgery Hx of tonsillectomy S/P aortogram with runoff S/P cardiac cath Social History Social History Household Members: Spouse Housing: House Are you a primary inspector health care facilities to a significant other at home: Yes ( AT HOME HAD CVA) Do you presently have visiting nurse or other home services: No Alcohol intake: never Patient Tobacco Use Status: Never used Tobacco Second Hand Smoke Exposure: No Advance Directives: No Advance Directives Information Provided: No Meds Allergies Allergy/AdvReac Type Severity Reaction Status Date / Time No Known Allergies Allergy Verified 11/06/20 20:11 [No Known Allergies*] Active Medications: Current Medications Generic Name Dose Route Start Last Admin Trade Name Freq PRN Reason Stop Dose Admin Acetaminophen 650 mg 11/06/20 23:46 Acetaminophen 325 Mg Tablet PO Q6H PRN Pain, Mild (Pain Scale 1-3) Al Hydroxide/Mg Hydroxide 10 ml 11/06/20 23:46 Magnesium Hydrox/Alum Hydrox 30 Ml Oral.Susp PO Q6H PRN indigestion Aspirin 81 mg 11/07/20 09:00 11/07/20 07:49 Aspirin Enteric Coated 81 Mg Tablet.Dr PO 81 mg DAILY BC Administration Atorvastatin Calcium 40 mg 11/06/20 23:46 11/07/20 00:39 Atorvastatin Calcium 40 Mg Tablet PO 40 mg BEDTIME BC Administration Enoxaparin Sodium 40 mg 11/06/20 23:46 11/07/20 00:39 Enoxaparin Sodium 40 Mg/0.4 Ml Syringe SUBCUT 40 mg Q24H BC Administration Insulin Human Lispro 0 unit 11/07/20 07:30 11/07/20 07:49 Insulin Lispro 100 Unit/Ml 3 Ml Vial SUBCUT 2 unit QIDACHS BC Administration Protocol Isosorbide Mononitrate 15 mg 11/07/20 09:00 11/07/20 07:49 Isosorbide Mononitrate 30 Mg Tab.Er.24h PO 15 mg DAILY BC Administration Protocol Losartan Potassium 50 mg 11/07/20 09:00 11/07/20 07:50 Losartan Potassium 50 Mg Tablet PO 50 mg DAILY BC Administration Protocol Metoprolol Tartrate 25 mg 11/07/20 09:00 11/07/20 07:49 Metoprolol Tartrate 25 Mg Tablet PO 25 mg DAILY BC Administration Protocol Nitroglycerin 0.4 mg 11/06/20 23:46 Nitroglycerin 0.4 Mg Tab.Subl SUBLINGUAL Q5M PRN Chest Pain Omeprazole 10 mg 11/07/20 09:00 11/07/20 09:40 Omeprazole 20 Mg/10 Ml Susp.Recon PO 10 mg DAILY BC Administration Ondansetron HCl 4 mg 11/06/20 23:46 Ondansetron Hcl 4 Mg/2 Ml Vial IVPUSH Q8H PRN Nausea and Vomiting Sodium Chloride 3 ml 11/07/20 00:00 11/07/20 07:50 0.9 % Sodium Chloride Flush 3 Ml Syringe IVFLUSH 3 ml QSHIFT BC Administration Home Medications Medication Instructions Recorded Confirmed Last Taken Type losartan 50 mg tablet 50 mg PO DAILY 01/06/20 11/06/20 Unknown History metoprolol tartrate 25 mg tablet 25 mg PO DAILY 01/06/20 11/06/20 Unknown History simvastatin 40 mg tablet 40 mg PO BEDTIME 01/06/20 11/06/20 Unknown History glipizide 5 mg tablet 5 mg PO DAILY 01/25/20 11/06/20 Unknown History isosorbide mononitrate 30 mg 15 mg PO DAILY 01/25/20 11/06/20 Unknown History tablet,extended release 24 hr nitroglycerin 0.4 mg sublingual 0.4 mg SUBLINGUAL Q5M PRN 01/25/20 11/06/20 Unknown History tablet Physical Exam Vital Signs: Vital Signs: Last Vital Signs Temp 98 F 11/07/20 07:06 Pulse 58 11/07/20 07:50 Resp 20 11/07/20 07:06 BP 170/82 H 11/07/20 07:50 Pulse Ox 99 11/07/20 07:06 Body Mass Index 30.9 Const: General: cooperative and no acute distress Nutritional Appearance: well nourished Orientation/consciousness: oriented to person, oriented to place and patient oriented x3 Limitations: no limitations HENMT: Head: Yes normal to inspection, Yes normocephalic and Yes atraumatic Ears: external ears normal General nose exam: Normal external nose present Face and sinus: Yes normal facial exam Mouth: Normal oral and palatal mucosa present Throat: Yes posterior oropharynx normal Eyes: General: appearance normal, both eyes and all related structures Visual Erickson: normal visual ercikson by confrontation Alignment and Position: alignment normal Periorbital: periorbital findings normal Eyelids: Yes eyelids normal Conjunctivae: conjunctivae normal Sclerae: sclerae normal Corneas: corneas normal Pupils: Equal, round and reactive pupils present EOM: EOMs intact bilaterally Direct Ophthalmoscopy: normal light reflex Neck: Neck: Yes normal visual inspection, Yes no lymphadenopathy, Yes trachea midline and Yes supple Thyroid: Thyroid normal Carotids: normal carotid upstroke and bounding pulses Chest: Chest palpation & inspection: normal inspection of the chest and normal palpation of entire chest wall Resp: Effort & Inspection: normal respiratory effort and able to speak in complete sentences Auscultation: clear to auscultation bilaterally Cardio: Rate: regular rate Rhythm: regular rhythm Heart sounds: S1 normal heart sound present, S2 normal heart sound present and no murmurs Peripheral pulses: Peripheral pulses 2+ throughout GI: Inspection: Yes normal to inspection Palpation (GI): Soft to palpation, nontender and no guarding Percussion: Yes normal to percussion Auscultation: normal bowel sounds Rectal Exam - Male: Yes deferred : General: Yes no CVA tenderness Back/Spine/Pelvis: Back: no CVA tenderness Cervical Spine: normal cervical lordosis and cervical ROM normal Thoracic/Lumbar Spine: thoracic and lumbar spine normal to inspection Skin: General skin exam: no rashes or lesions noted Neuro: Other: No neurological deficits, strength 5/5 in upper and lower extremities General: oriented to person, oriented to place and patient oriented x3 Cranial nerves: Yes CN's II-XII intact bilaterally, Yes Equal, round and reactive pupils present and Yes Normal hearing present Cognition (Neuro): normal cognition Speech: Expressive aphasia present (There is no expressive dysphagia or dysarthria.) Gait exam (Neuro): Normal gait present Motor exam (neuro): 5/5 motor strength present throughout Sensory Exam: Bilaterally intact graphesthesia Deep tendon reflexes (DTR's): Right triceps reflex intensity grade: 2+, Left triceps reflex intensity grade: 2+, Rt Biceps (C5, C6): 2+, Left biceps reflex intensity grade: 2+, Right brachioradialis reflex intensity grade: 2+, Left brachioradialis reflex intensity grade: 2+, Right patellar reflex intensity grade: 2+, Left patellar reflex intensity grade: 2+, Right ankle reflex intensity grade: 2+ and Left ankle reflex intensity grade: 2+ Plantar Reflex Responses: downgoing: right, left and bilateral Coordination: [id number] test normal, [id number] test normal, tandem gait normal and Romberg test negative Pupils: Normal pupillary reactivity/response: bilateral Extrem: General: Yes normal to inspection and Yes no pedal edema Psych: Appearance: grossly normal Mental Status: mental status grossly normal Speech and movement: Normal speech and movement present Affect: normal affect Attitude: cooperative Thought process: Normal thought process present Thought content: Normal thought content present Results Labs CBC & Chem 7: 11/07/20 05:55 11/07/20 05:55 Labs: Short CBC 11/06/20 11/07/20 Range/Units 20:04 05:55 WBC 8.3 7.6 (4.8-10.8) X10*3/uL Hgb 12.1 L 12.3 L (14.0-18.0) g/dl Hct 36.1 L 37.6 L (42-52) % Plt Count 205 181 (160-400) X10*3/uL BMP 11/06/20 11/07/20 20:04 05:55 Sodium 140 140 Potassium 4.3 4.1 Chloride 107 108 Carbon Dioxide 22 24 BUN 23 H 19 H Creatinine 1.26 0.95 Calcium 9.0 9.0 Cardiac Enzymes 11/06/20 Range/Units 20:04 Total Creatine Kinase 116 (38-174) U/L Liver Function 11/06/20 Range/Units 20:04 Total Bilirubin 0.3 (0.0-1.0) mg/dL Direct Bilirubin < 0.2 (0.0-0.5) mg/dL AST 18 (5-37) U/L ALT 14 (0-40) U/L Alkaline Phosphatase 100 (39-117) U/L Albumin 3.8 (3.5-5.0) g/dL Urine 11/06/20 Range/Units 21:55 Urine Color YELLOW Urine Appearance CLEAR Urine pH 6.0 (5.0-8.0) Ur Specific [place] 1.025 (1.005-1.025) Urine Protein NEG (NEG-TRACE) MG/DL Urine Glucose (UA) 500 H (NEG) MG/DL Assessment and Plan (1) Expressive aphasia: Status: Acute (2) TIA (transient ischemic attack): Status: Acute Echocardiogram, lipid profile, carotid Doppler. MRI of the brain to rule out small acute infarct Procedures Date of Service Date of Service: 11/07/20
[2020-11-07 11:21] LABS: Glucose, Whole Blood 172 mg/dL (60-115)
--- NOTE | 2020-11-07 11:56 | MHC.CM.PN ---
met with pt and son pt was indepedent prior to admission and does not anticapte the need for serveis when dcd
--- NOTE | 2020-11-07 12:16 | MHC.STROKE ---
11/06/20 EMS PRE-NOTIFIED STROKE ALERT APHASIA ONSET AT 1910 ONLY LASTED A FEW MINUTES, ARRIVED AT 1940. DIRECT [address], NO BLEED, EXCLUDED FROM TPA BASED ON NIHSS = 0, SYMPTOMS RESOLVED COMPLETELY. HE PASSED THE SWALLOW SCREEN PRIOR TO PO. IN SPEAKING WITH HIM AND HIS SON DEXTER TODAY, WE REVIEWED S&S OF STROKE, HIS HAD A SIMILAR STROKE BUT CONTINUES TO HAVE APHASIA. HE ADMITS TO HAVING TWO PRIOR STROKES, LEFT FRONTAL AND IN HIS EYE. NO LASTING DEFICITS FROM THEM. WE REVIEWED THE STROKE EDUCATION BOOKLET AND POWER POINT SLIDES. I ANSWERED ALL OF HIS QUESTIONS. I DID ASK IF HE HAS EVER BEEN TOLD HE HAS AFIB AND HE SAID NO. HE IS HAVING HIS MRI AT 1230 AND I WILL MEET WITH HIM AGAIN AFTER THE RESULTS ARE BACK.
[2020-11-07 12:59] LABS: Cholesterol 163 mg/dL; HDL Cholesterol 36 mg/dL; LDL Cholesterol Calculated 78 mg/dl; Triglycerides 249 mg/dL
--- NOTE | 2020-11-07 15:18 | HO.PM.IMPN ---
Subjective Subjective Date of Service: 11/07/20 Interval History: Seen in f/u for TIA, symptoms fully rsolved Review of Systems Gen: no fever Resp: no sob, no cough CV: no chest, no MENDIETA, no leg edema GI: No n/v, no abd pain Neuro: No confusion Physical Exam Vital Signs: Vital Signs: Last Vital Signs Temp 98 F 11/07/20 11:06 Pulse 52 11/07/20 11:06 Resp 20 11/07/20 11:06 BP 158/62 H 11/07/20 11:06 Pulse Ox 95 11/07/20 11:06 Body Mass Index 30.9 Const: General: cooperative and no acute distress Orientation/consciousness: patient oriented x3 Eyes: General: appearance normal, both eyes and all related structures Pupils: Equal, round and reactive pupils present Resp: Effort & Inspection: normal respiratory effort and able to speak in complete sentences Auscultation: clear to auscultation bilaterally Cardio: Rate: regular rate Rhythm: regular rhythm GI: Palpation (GI): Soft to palpation Auscultation: normal bowel sounds Skin: General skin exam: no rashes or lesions noted Neuro: Other: No neurological deficits, strength 5/5 in upper and lower extremities General: patient oriented x3 Cranial nerves: Yes Equal, round and reactive pupils present Cognition (Neuro): normal cognition Extrem: General: Yes normal to inspection and Yes no pedal edema Objective Data Current Medications Generic Name Dose Route Start Last Admin Trade Name Freq PRN Reason Stop Dose Admin Acetaminophen 650 mg 11/06/20 23:46 Acetaminophen 325 Mg Tablet PO Q6H PRN Pain, Mild (Pain Scale 1-3) Al Hydroxide/Mg Hydroxide 10 ml 11/06/20 23:46 Magnesium Hydrox/Alum Hydrox 30 Ml Oral.Susp PO Q6H PRN indigestion Aspirin 81 mg 11/07/20 09:00 11/07/20 07:49 Aspirin Enteric Coated 81 Mg Tablet.Dr PO 81 mg DAILY BC Administration Atorvastatin Calcium 40 mg 11/06/20 23:46 11/07/20 00:39 Atorvastatin Calcium 40 Mg Tablet PO 40 mg BEDTIME BC Administration Enoxaparin Sodium 40 mg 11/06/20 23:46 11/07/20 00:39 Enoxaparin Sodium 40 Mg/0.4 Ml Syringe SUBCUT 40 mg Q24H BC Administration Insulin Human Lispro 0 unit 11/07/20 07:30 11/07/20 12:41 Insulin Lispro 100 Unit/Ml 3 Ml Vial SUBCUT 2 unit QIDACHS [facility] Administration Protocol Isosorbide Mononitrate 15 mg 11/07/20 09:00 11/07/20 07:49 Isosorbide Mononitrate 30 Mg Tab.Er.24h PO 15 mg DAILY [facility] Administration Protocol Losartan Potassium 50 mg 11/07/20 09:00 11/07/20 07:50 Losartan Potassium 50 Mg Tablet PO 50 mg DAILY [facility] Administration Protocol Metoprolol Tartrate 25 mg 11/07/20 09:00 11/07/20 07:49 Metoprolol Tartrate 25 Mg Tablet PO 25 mg DAILY [facility] Administration Protocol Nitroglycerin 0.4 mg 11/06/20 23:46 Nitroglycerin 0.4 Mg Tab.Subl SUBLINGUAL Q5M PRN Chest Pain Omeprazole 10 mg 11/07/20 09:00 11/07/20 09:40 Omeprazole 20 Mg/10 Ml Susp.Recon PO 10 mg DAILY [facility] Administration Ondansetron HCl 4 mg 11/06/20 23:46 Ondansetron Hcl 4 Mg/2 Ml Vial IVPUSH Q8H PRN Nausea and Vomiting Sodium Chloride 3 ml 11/07/20 00:00 11/07/20 07:50 0.9 % Sodium Chloride Flush 3 Ml Syringe IVFLUSH 3 ml QSHIFT [facility] Administration Labs CBC & Chem 7: 11/07/20 05:55 11/07/20 05:55 Assessment and Plan (1) TIA (transient ischemic attack): Status: Acute Assessment and Plan: 80-year-old male with past medical history of diabetes, hypertension, hyperlipidemia, CAD, PAD who presents to hospital with expressive aphasia # expressive aphasia - transient - secondary to TIA - patient with history of old strokes on CT of the head - has extensive risk factors -CTA shows severe stenosis of the right A2 OLRENZA and right P2 TABLE COVER FOLDER segment. No proximal vessel occlusion. No definite aneurysm. - MRI is pending, echo done, checking lipid panel - started on aspirin and high-dose statin -BP control # history of CAD - continue metoprolol # diabetes - hold oral antihyperglycemics - low-dose sliding scale insulin - diabetic diet # hypertension - stable - continue losartan DVT prophylaxis: lovenox Quality Stroke Does the patient have a stroke diagnosis?: No VTE Prior VTE?: No VTE Risk Level:: Medical - moderate - high VTE Device Contraindication: Treatment Not Indicated VTE Drug Contraindication: N/A - Med Ordered
[2020-11-07 16:33] LABS: Glucose, Whole Blood 135 mg/dL (60-115)
[2020-11-07 20:38] LABS: Glucose, Whole Blood 204 mg/dL (60-115)
--- NOTE | 2020-11-07 23:46 | CA_ITS ---
Transthoracic Echocardiogram Patient (Last, First, Middle): Hiren Chisholm J Gender: Male Date of : 1940 Age: 80 Procedure Date: 11/07/2020 Procedure Type: Transthoracic Echocardiogram [place] [facility] [place]: 180.34 cm Weight: 100.25 kg BSA: 2.20 m2 Heart Rate: bpm BP: 140 / 70 mmHg Cutter Operator Tile: RENETTA/DAMIEN Referring MD: Lindsay Rios MD Symptoms: TIA Study Quality: Fair Conclusions: - Normal left ventricular size, thickness, systolic function, and wall motion. - Normal right ventricular cavity size and systolic function. - The left atrium is mildly dilated. Findings Left Ventricle Normal left ventricular size, thickness, systolic function, and wall motion. The visually estimated ejection fraction is between 65-70%. Diastolic function is normal for age. Right Ventricle Normal right ventricular cavity size and systolic function. Atria The left atrium is mildly dilated. Aortic Valve There is mild calcification of the aortic valve. There is no aortic valve stenosis. There is no aortic valve regurgitation. Mitral Valve Normal mitral valve structure and function. There is no mitral valve regurgitation. There is no mitral valve stenosis. Pulmonic Valve Normal pulmonic valve structure and function. There is trace pulmonic valve regurgitation. Tricuspid Valve Normal tricuspid valve structure and function. There is trace tricuspid valve regurgitation. Tricuspid regurgitation envelope is inadequate for calculation of right ventricular systolic pressure. Normal right atrial pressure. Great Vessels All visible segments of the aorta are normal in size. The visualized portions of the pulmonary artery and branches are normal. Venous The inferior vena cava is normal in size and collapses greater than 50% with inspiration. Pericardium/Pleural There is no evidence of pericardial effusion. Prior Study Comparison Changes noted compared to prior study dated: 06/16/2009. Left atrium is mildly dilated. Measurements 2D Linear Measurements IVSd: 0.94 0.6-0.9/0.6-1.0 cm LVIDd: 4.77 3.9-5.3/4.2-5.9 cm LVIDd Index: 2.17 2.4-3.2/2.2-3.1 cm/m2 LVIDs: 3.25 2.0-3.6 cm LVPWd: 1.15 0.7-1.1 cm Ao Root: 3.70 2.1-3.5 cm LA Diam: 4.30 2.7-3.8/3.0-4.0 cm LAIDs Index: 1.95 1.5-2.3 cm/m2 LV Mass: 222.58 67-162/88-224 g LV Mass Index: 101.17 43-95/49-115 g/m2 LVOT Diam: 2.00 3.0+(-)1.3 cm 2D Systolic Function EF 4C: 52.30 >55% EF 2C: 63.60 >55% EF BiP: 57.40 >55% Mitral Valve MV Pk E: 0.57 MV PK A: 0.91 MV Decel Time: 320.00 E/A: 0.60 E'Lateral: 8.38 E'Medial: 7.07 E/E' Med: 8.00 E/E' Lat: 6.80 PHT: 94.00 MVA PHT: 2.34 Decel [place]: 1.78 Aortic Valve AoV Pk Shubham: 1.39 AoV Mn Shubham: 0.99 AoV VTI: 0.35 AoV Pk Grad: 8.00 Aov Mn Grad: 4.00 SRI Cont.VTI: 2.35 LVOT LVOT Pk Shubham: 1.17 LVOT Mn Shubham: 0.79 LVOT VTI: 0.27 LVOT Pk Grad: 5.00 LVOT Mn Grad: 3.00 LVOT Diam: 2.00 LVOT Area: 3.14 Diastolic Function MV Pk E: 0.57 MV Pk A: 0.91 E/A: 0.60 E'Medial: 7.07 E/E' Med: 8.00 E' Laterial: 8.38 E/E' Lat: 6.80 Right Ventricle TAPSE (mm): 2.64 Tricuspid Valve RA Press: 8.00 Great Vessels Aorta Ao Root-2D: 3.70 2.0-3.7 cm Ao Asc: 3.40 2.1-3.4 cm Updated in Other Vendor System with Status of Final Socrates Ramsey MD electronically signed on 11/07/2020 7:35:30 PM with status of Final
[2020-11-08 03:14] VITALS: BP 158/74; PULSE 57; RESP 20; TEMP 37.5; O2SAT 98
[2020-11-08 07:10] LABS: Glucose, Whole Blood 175 mg/dL (60-115)
[2020-11-08 07:12] VITALS: BP 140/59; PULSE 61; RESP 20; TEMP 36.6; O2SAT 97
[2020-11-08 08:13] VITALS: BP 140/59; PULSE 61
[2020-11-08] MEDS: Losartan Potassium 50 MG TABLET PO (08:13)
[2020-11-08] MEDS: Isosorbide Mononitrate 30 MG TAB.ER.24H 15 MG PO (08:13)
[2020-11-08] MEDS: Aspirin Enteric Coated 81 MG TABLET.DR PO (08:13)
[2020-11-08 08:14] VITALS: BP 140/59; PULSE 61
[2020-11-08] MEDS: Insulin Lispro 100 UNIT/ML 3 ML VIAL SUBCUT ×2 (08:14→11:29)
[2020-11-08] MEDS: Metoprolol Tartrate 25 MG TABLET PO (08:14)
[2020-11-08] MEDS: 0.9 % Sodium Chloride Flush 3 ML SYRINGE IVFLUSH (08:14)
--- NOTE | 2020-11-08 09:56 | P.PNNE_ITS ---
Subjective Subjective Date of Service: 11/08/20 Interval History: Seen in f/u for TIA, symptoms fully resolved. No recurrence Critical Care Time (minutes): 0 Physical Exam Vital Signs: Vital Signs: Last Vital Signs Temp 97.9 F 11/08/20 07:12 Pulse 61 11/08/20 08:14 Resp 20 11/08/20 07:12 BP 140/59 H 11/08/20 08:14 Pulse Ox 97 11/08/20 07:12 Body Mass Index 30.9 Const: General: cooperative and no acute distress Nutritional Appearance: well nourished Orientation/consciousness: oriented to person, oriented to place and patient oriented x3 Limitations: no limitations HENMT: Head: Yes normal to inspection, Yes normocephalic and Yes atraumatic Ears: external ears normal General nose exam: Normal external nose present Face and sinus: Yes normal facial exam Mouth: Normal oral and palatal mucosa present Throat: Yes posterior oropharynx normal Eyes: General: appearance normal, both eyes and all related structures Visual Bianchi: normal visual bianchi by confrontation Alignment and Position: alignment normal Periorbital: periorbital findings normal Eyelids: Yes eyelids normal Conjunctivae: conjunctivae normal Sclerae: sclerae normal Corneas: corneas normal Pupils: Equal, round and reactive pupils present EOM: EOMs intact bilaterally Direct Ophthalmoscopy: normal light reflex Neck: Neck: Yes normal visual inspection, Yes no lymphadenopathy, Yes trachea midline and Yes supple Thyroid: Thyroid normal Carotids: normal carotid upstroke and bounding pulses Chest: Chest palpation & inspection: normal inspection of the chest and normal palpation of entire chest wall Resp: Effort & Inspection: normal respiratory effort and able to speak in complete sentences Auscultation: clear to auscultation bilaterally Cardio: Rate: regular rate Rhythm: regular rhythm Heart sounds: S1 normal heart sound present, S2 normal heart sound present and no murmurs Peripheral pulses: Peripheral pulses 2+ throughout GI: Inspection: Yes normal to inspection Palpation (GI): Soft to palpation, nontender and no guarding Percussion: Yes normal to percussion Auscultatio n: normal bowel sounds Rectal Exam - Male: Yes deferred : General: Yes no CVA tenderness Back/Spine/Pelvis: Back: no CVA tenderness Cervical Spine: normal cervical lordosis and cervical ROM normal Thoracic/Lumbar Spine: thoracic and lumbar spine normal to inspection Skin: General skin exam: no rashes or lesions noted Neuro: Other: No neurological deficits, strength 5/5 in upper and lower extremities General: oriented to person, oriented to place and patient oriented x3 Cranial nerves: Yes CN's II-XII intact bilaterally, Yes Equal, round and reactive pupils present and Yes Normal hearing present Cognition (Neuro): normal cognition Speech: Expressive aphasia present (There is no expressive dysphagia or dysarthria.) Gait exam (Neuro): Normal gait present Motor exam (neuro): 5/5 motor strength present throughout Sensory Exam: Bilaterally intact graphesthesia Deep tendon reflexes (DTR's): Right triceps reflex intensity grade: 2+, Left triceps reflex intensity grade: 2+, Rt Biceps (C5, C6): 2+, Left biceps reflex intensity grade: 2+, Right brachioradialis reflex intensity grade: 2+, Left brachioradialis reflex intensity grade: 2+, Right pa tellar reflex intensity grade: 2+, Left patellar reflex intensity grade: 2+, Right ankle reflex intensity grade: 2+ and Left ankle reflex intensity grade: 2+ Plantar Reflex Responses: downgoing: right, left and bilateral Coordination: [id number] test normal, [id number] test normal, tandem gait normal and Romberg test negative Pupils: Normal pupillary reactivity/response: bilateral Extrem: General: Yes normal to inspection and Yes no pedal edema Psych: Appearance: grossly normal Mental Status: mental status grossly normal Speech and movement: Normal speech and movement present Affect: normal affect Attitude: cooperative Thought process: Normal thought process present Thought content: Normal thought content present Objective Data Labs CBC & Chem 7: 11/07/20 05:55 11/07/20 05:55 Labs: Laboratory Results - last 24 hr 11/07/20 11/07/20 11/07/20 05:55 11:03 16:25 POC Glucose 172 H 135 H Triglycerides 249 Cholesterol 163 LDL Cholesterol, Calc 78 HDL Cholesterol 36 11/07/20 11/08/20 20:29 07:06 POC Glucose 204 H 175 H Triglycerides Cholesterol LDL Cholesterol, Calc HDL Cholesterol Progress Note: A&P Assessment and plan (1) TIA (transient ischemic attack): Status: Acute Assessment and Plan: Can be discharged on ASA 81mg, Plavix 75 mg an dincrease Simvastatin to 40mg Assessment and Plan: 80-year-old male with past medical history of diabetes, hypertension, hyperlipidemia, CAD, PAD who presents to hospital with expressive aphasia # expressive aphasia - transient - secondary to TIA - 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 No proximal vessel occlusion. No definite aneurysm. - MRI reviewed # history of CAD - continue metoprolol # diabetes - hold oral antihyperglycemics - low-dose sliding scale insulin - diabetic diet # hypertension - stable - continue losartan DVT prophylaxis: lovenox Fall Risk Details Current Medications: Current Medications Generic Name Dose Route Start Last Admin Trade Name Freq PRN Reason Stop Dose Admin Acetaminophen 650 mg 11/06/20 23:46 Acetaminophen 325 Mg Tablet PO Q6H PRN Pain, Mild (Pain Scale 1-3) Al Hydroxide/Mg Hydroxide 10 ml 11/06/20 23:46 Magnesium Hydrox/Alum Hydrox 30 Ml Oral.Susp PO Q6H PRN indigestion Aspirin 81 mg 11/07/20 09:00 11/08/20 08:13 Aspirin Enteric Coated 81 Mg Tablet. PO 81 mg DAILY BC Administration Atorvastatin Calcium 40 mg 11/06/20 23:46 11/07/20 20:19 Atorvastatin Calcium 40 Mg Tablet PO 40 mg BEDTIME BC Administration Enoxaparin Sodium 40 mg 11/06/20 23:46 11/07/20 22:46 Enoxaparin Sodium 40 Mg/0.4 Ml Syringe SUBCUT 40 mg Q24H BC Administration Insulin Human Lispro 0 unit 11/07/20 07:30 11/08/20 08:14 Insulin Lispro 100 Unit/Ml 3 Ml Vial SUBCUT 2 unit QIDACHS BC Administration Protocol Isosorbide Mononitrate 15 mg 11/07/20 09:00 11/08/20 08:13 Isosorbide Mononitrate 30 Mg Tab.Er.24h PO 15 mg DAILY BC Administration Protocol Losartan Potassium 50 mg 11/07/20 09:00 11/08/20 08:13 Losartan Potassium 50 Mg Tablet PO 50 mg DAILY BC Administration Protocol Metoprolol Tartrate 25 mg 11/07/20 09:00 11/08/20 08:14 Metoprolol Tartrate 25 Mg Tablet PO 25 mg DAILY BC Administration Protocol Nitroglycerin 0.4 mg 11/06/20 23:46 Nitroglycerin 0.4 Mg Tab.Subl SUBLINGUAL Q5M PRN Chest Pain Omeprazole 10 mg 11/07/20 09:00 11/08/20 08:14 Omeprazole 20 Mg/10 Ml Susp.Recon PO 10 mg DAILY BC Administration Ondansetron HCl 4 mg 11/06/20 23:46 Ondansetron Hcl 4 Mg/2 Ml Vial IVPUSH Q8H PRN Nausea and Vomiting Sodium Chloride 3 ml 11/07/20 00:00 11/08/20 08:14 0.9 % Sodium Chloride Flush 3 Ml Syringe IVFLUSH 3 ml QSHIFT BC Administration Time Spent With Patient Time: Total time spent is greater than 50% in coordination of care (as documented) at patient's floor/unit and/or counseling patient: Time with patient: 15 - 24 minutes Procedures Date of Service Date of Service: 11/08/20 Quality Stroke Does the patient have a stroke diagnosis?: No VTE Prior VTE?: No VTE Risk Level:: Medical - moderate - high VTE Device Contraindication: Treatment Not Indicated VTE Drug Contraindication: N/A - Med Ordered
[2020-11-08 11:05] LABS: Glucose, Whole Blood 241 mg/dL (60-115)
--- NOTE | 2020-11-08 12:09 | P.DS_ITS ---
DS: Providers Provider Date of Service: 11/08/20 Date of admission: 11/06/20 23:32 Primary care physician: Unknown Physician Consults: 11/07/20 08:13 Consult to Neurology Routine Consulting Provider: [facility] Reason for consultation: TIA DS: Diagnosis Discharge Diagnosis (1) TIA (transient ischemic attack): Status: Acute DS: Medications Discharge Medications Home Medications: Home Medications Medication Instructions Recorded Confirmed losartan 50 mg tablet 50 mg PO DAILY 01/06/20 11/06/20 metoprolol tartrate 25 mg tablet 25 mg PO DAILY 01/06/20 11/06/20 simvastatin 40 mg tablet 40 mg PO BEDTIME 01/06/20 11/06/20 glipizide 5 mg tablet 5 mg PO DAILY 01/25/20 11/06/20 isosorbide mononitrate 30 mg 15 mg PO DAILY 01/25/20 11/06/20 tablet,extended release 24 hr nitroglycerin 0.4 mg sublingual 0.4 mg SUBLINGUAL Q5M PRN 01/25/20 11/06/20 tablet Previous Rx's Medication Instructions Recorded aluminum-mag hydroxide-simethicone 10 ml PO Q6H PRN #3000 ml 01/28/20 200 mg-200 mg-20 mg/5 mL oral susp (Maalox Advanced) omeprazole 10 mg capsule,delayed 10 mg PO DAILY 14 Days #14 cap 01/28/20 release aspirin 81 mg tablet,delayed 81 mg PO DAILY #30 tab 11/08/20 release atorvastatin 40 mg tablet (Lipitor) 40 mg PO BEDTIME #30 tab 11/08/20 clopidogrel 75 mg tablet (Plavix) 75 mg PO DAILY #30 tab 11/08/20 DS: Summary Hospital Course Hospital Course: ate of Service: 11/06/20 Chief Complaint: aphasia This is an 80-year-old male with past medical history of CAD, diabetes, HTN, HLD, peripheral artery disease status post stents in the lower extremity, sleep apnea who presents to the hospital with complaints of transient episode of difficulty speaking.? Patient reports that he was sitting with his family when he wanted to tell his to change the channel, he was able to speak but he the worse that came out of his mouth made no sense and to him or to his .? He reports that he tried 2 more times and results were the same, therefore he realize he may be going through a stroke, he called his son and even by calling his son he made no sense but his son realized that patient may be having a stroke and called EMS.? Patient reports that after 2-3 minutes his symptoms res olved and he was able to speak and able to comprehend himself.? Denies any previous similar episode although reports that he was found to on incidental CT imaging to have a small stroke many years ago.? He denies any numbness tingling or weakness in any of his extremities, no numbness in the face, no facial droop. He denies any chest pain, no palpitations, no shortness of breath, no abdominal pain nausea or vomiting, no diarrhea constipation, no urinary symptoms.? No headache or change in vision. On arrival to the ED hemodynamically stable with no significant abnormal vitals Labs are significant for WBC count of 8.3, hemoglobin of 12.1, hematocrit 36.1, otherwise unremarkable. Head CT shows small region of encephalomalacia in the left frontal and operculum cortices suggesting prior infarct.? Left caudate lacunar infarct.? Mild chronic cerebral white matter microangiopathy. Case was discussed with Neurology and patient will be admitted for further management. Hospital course: Patient was admitted for transient expressive aphasia-? 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 No proximal vessel occlusion. No definite aneurysm. - MRI showed no acute stroke. Seen by Neurologist Dr. Swanson is recommended for Asprin, Plavix and Lipitor 40 daily. Echo shows no clot Time Spent with Patient Time attestation: Total time spent providing and/or coordinating discharge services: Discharge coordination time: Greater than 30 minutes Quality: Stroke Does the patient have a stroke diagnosis?: No Physical Exam Vital Signs: Vital Signs: Last Vital Signs Temp 97.9 F 11/08/20 07:12 Pulse 61 11/08/20 08:14 Resp 20 11/08/20 07:12 BP 140/59 H 11/08/20 08:14 Pulse Ox 97 11/08/20 07:12 Body Mass Index 30.9 DS: Data Data Completed and Pending Completed studies during hospitalization [Text1]: Procedures Extirpation of Matter from Right External Iliac Artery, Open Approach (01/25/20) Extirpation of Matter from Right Femoral Artery, Open Approach (01/25/20) Supplement Right Femoral Artery with Synthetic Substitute, Open Approach (01/25/20) Labs on day of discharge: Laboratory Results - last 24 hr 11/07/20 11/07/20 11/07/20 05:55 16:25 20:29 POC Glucose 135 H 204 H Triglycerides 249 Cholesterol 163 LDL Cholesterol, Calc 78 HDL Cholesterol 36 11/08/20 11/08/20 07:06 11:02 POC Glucose 175 H 241 H Triglycerides Cholesterol LDL Cholesterol, Calc HDL Cholesterol Discharge Plan Discharge Anticipated Discharge Date/Time: 11/08/20 11:56 Patient Disposition: Home, Self-Care Discharge Diagnosis: TIA Referrals: Physician,Unknown [Primary Care Provider] - 1 Week Discharge Medications: New clopidogrel [Plavix] 75 mg tablet 75 mg PO DAILY Qty: 30 RF: 1 atorvastatin [Lipitor] 40 mg tablet 40 mg PO BEDTIME Qty: 30 RF: 0 aspirin 81 mg Tablet,Delayed Release (Dr/Ec) 81 mg PO DAILY Qty: 30 RF: 0 Continued simvastatin 40 mg Tablet 40 mg PO BEDTIME RF: 0 losartan 50 mg Tablet 50 mg PO DAILY RF: 0 metoprolol tartrate 25 mg Tablet 25 mg PO DAILY RF: 0 isosorbide mononitrate 30 mg Tablet Extended Release 24 Hr 15 mg PO DAILY RF: 0 nitroglycerin 0.4 mg Tablet, Sublingual 0.4 mg SUBLINGUAL Q5M PRN (Reason: Chest Pain) RF: 0 glipizide 5 mg Tablet 5 mg PO DAILY RF: 0 omeprazole 10 mg capsule,delayed release(DR/EC) 10 mg PO DAILY 14 Days Qty: 14 RF: 0 alum-mag hydroxide-simeth [Maalox Advanced] 200-200-20 mg/5 mL suspension 10 ml PO Q6H PRN (Reason: indigestion) Qty: 3000 RF: 0 Discharge Orders: Discharge Order (Routine); Ordered 11/08/20 Ordered By: David Dawkins Diet: advance to usual diet Activity on Discharge: As tolerated Stand Alone Forms: Patient Portal Discharge page Care Plan Goals: prevent seizur Health Concerns: TIA Plan of Treatment: Take Plavix, Aspirin and Lipitor as well as your blood pressure medications as recommended and follow up with your Doctor in a week Assessment: As above
--- NOTE | 2020-11-08 14:42 | MHC.STROKEDC ---
I CLARIFIED THE STATIN MEDICATION WITH DR PASTOR. THE PATIENT SHOULD BE ONLY TAKING ATORVASTATIN 40MG. I DID CALL THE PATIENT AND CLEARLY EXPLAINED THAT HE IS NOT TO TAKE THE SIMVASTATIN ANY LONGER AND HE SHOULD BE TAKING ONLY LIPITOR (ATORVASTATIN) 40MG. I ALSO F/U WITH HIS PCP DR DALEY.
== END 2020-11-08 12:22 | disposition home or self-care (01) ==
LOC: HO.ED 23:21 → HO.IMC 11-07 00:07
PROVIDERS: Admitting Provider Internal Medicine; Emergency Provider Emergency Medicine Emergency Medical Services; Visit Provider Internal Medicine
DX: G45.9 Transient cerebral ischemic attack, unspecified (principal); R47.01 Aphasia; I87.309 Chronic venous hypertension (idiopathic) without complications of unspecified lower extremity; I73.9 Peripheral vascular disease, unspecified; E23.2 Diabetes insipidus; E78.5 Hyperlipidemia, unspecified; I25.119 Atherosclerotic heart disease of native coronary artery with unspecified angina pectoris; I10 Essential (primary) hypertension; Z98.890 Other specified postprocedural states; Z79.4 Long term (current) use of insulin; Z79.899 Other long term (current) drug therapy; Z20.822 Contact with and (suspected) exposure to COVID-19
CPT/HCPCS: 36415; 70450; 70496; 70498; 70551; 71045; 80048; 80061; 80076; 81003; 82077; 82550; 82947; 84484; 85025; 85610; 85730; 87635; 93005; 93306; 99219; 99285; J1650; Q9967

== ENCOUNTER 2020-11-28 13:51 | Outpatient (REF) | payer MEDICARE, SELFPAY ==
--- NOTE | ~2020-11-28 | US_ITS ---
EXAMINATION: US NONINVASIVE ASSESSMENT OF THE ARTERIES OF BOTH LOWER EXTREMITIES WITH ANKLE PRESSURE MEASUREMENTS, ANKLE BRACHIAL INDICES, PVR MEASUREMENTS AND BILATERAL LOWER EXTREMITY DUPLEX CLINICAL INFORMATION: Peripheral vascular disease. TECHNIQUE: Ankle pressure measurements, ankle brachial indices and PVR tracings were obtained of the lower extremity arterial system bilaterally. In addition, duplex Doppler techniques with wave form analysis and measurement of velocities in the common femoral, profunda femoral, superficial femoral, popliteal and tibial arteries was performed. The study was performed only at rest. COMPARISON: 05/30/2020 FINDINGS: NONINVASIVE ASSESSMENT OF THE ARTERIES OF BOTH LOWER EXTREMITIES WITH ABIs: RIGHT LEG: Right ankle-brachial index: 1.02 (previously 0.97). PVR (ankle): Normal. LEFT LEG: Ankle-brachial index: 0.62 (previously 0.56). PVR (ankle): Moderately dampened. BILATERAL LOWER EXTREMITY DUPLEX ULTRASOUND: RIGHT LEG: Common femoral artery: 199 cm/s, Diastolic flow reversal: Yes Profunda femoris artery: 292 cm/s, Diastolic flow reversal: Yes Superficial femoral artery (proximal): 337 cm/s, Diastolic flow reversal: Yes Superficial femoral artery (mid): 244 cm/s, Diastolic flow reversal: Yes Superficial femoral artery (distal): 142 cm/s, Diastolic flow reversal: Yes Popliteal artery: 178 cm/s, Diastolic flow reversal: Yes Posterior tibial artery: 77.4 cm/s, Diastolic flow reversal: Yes LEFT LEG: Common femoral artery: 594 cm/s, Diastolic flow reversal: No Profunda femoris artery: 157 cm/s, Diastolic flow reversal: No Superficial femoral artery (proximal): 339 cm/s, Diastolic flow reversal: No Superficial femoral artery (mid): 68.4 cm/s, Diastolic flow reversal: No Superficial femoral artery (distal): 76.2 cm/s, Diastolic flow reversal: No Popliteal artery: 108 cm/s, Diastolic flow reversal: No Posterior tibial artery: 54.6 cm/s, Diastolic flow reversal: No US/US arterial duplex LE BI IMPRESSION: RIGHT LEG: ESTHER 1.02. Elevated velocities within the proximal profunda femoris artery and proximal and mid superficial femoral artery consistent with moderate hemodynamically significant stenoses. Collateral vessels identified. LEFT LEG: ESTHER 0.62. consistent with moderate arterial insufficiency. Monophasic waveforms present throughout the left lower extremity. There is markedly increased velocity within the left common femoral artery consistent with a severe hemodynamically significant stenosis. This has increased from the comparison examination. There is also increased velocity within the proximal superficial femoral artery consistent with a moderate hemodynamically significant stenosis. ESTHER Reference: - >0.97-1.25 = normal - no significant arterial disease - 0.75-0.96 = mild peripheral arterial disease - 0.5-0.74 = moderate peripheral arterial disease - <0.50 = severe peripheral arterial disease
== END 2020-11-28 13:52 | disposition home or self-care (01) ==
LOC: HO.US 13:51
PROVIDERS: PCP Internal Medicine; Visit Provider Surgery Vascular Surgery
DX: I65.29 Occlusion and stenosis of unspecified carotid artery (principal); I70.213 Atherosclerosis of native arteries of extremities with intermittent claudication, bilateral legs
CPT/HCPCS: 93923; 93925

== ENCOUNTER → 2020-12-08 13:00 | Outpatient (BNVA) | payer MEDICARE, SELFPAY | PROVIDERS: PCP Internal Medicine; Visit Provider Surgery Vascular Surgery | DX: I73.9 Peripheral vascular disease, unspecified (principal) | CPT/HCPCS: 99212 ==

== ENCOUNTER 2021-01-02 14:06 | Outpatient (REF) | payer MEDICARE, SELFPAY ==
--- NOTE | ~2021-01-02 | XR_ITS ---
EXAMINATION: XR WRIST, LEFT CLINICAL INFORMATION: Wrist pain. COMPARISON: None TECHNIQUE: PA, lateral, and oblique views of the left wrist. FINDINGS: Severe degenerative change is present at the 1st metacarpocarpal joint with loss of joint space, sclerosis and osteophyte formation. Bones and soft tissues are otherwise normal. No fracture. Alignment is anatomic with the remainder of the joint spaces unremarkable. No chondrocalcinosis. 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
[2021-01-02 16:01] LABS: Basophils Absolute Auto 0.1 X10*3/uL (0.0-0.2); Basophils Percent Auto 0.6 % (0-2); Eosinophils Absolute Auto 0.5 X10*3/uL (0.0-0.4); Eosinophils Percent Auto 6.2 % (0-4); Hematocrit 38.4 % (42-52); Hemoglobin 12.6 g/dl (14.0-18.0); Imm Gran Abs Auto 0.04 X10*3/uL (0.00-0.03); Imm Gran Pct Auto 0.5 % (0.0-0.4); Lymphocytes Absolute Auto 1.9 X10*3/uL (1.2-4.9); Lymphocytes Percent Auto 22.1 % (20-40); MANUAL DIFF FLAG NO; Mean Corpuscular HGB Conc 32.8 g/dl (31.0-36.0); Mean Corpuscular Hemoglobin 28.4 pg (27.0-33.0); Mean Corpuscular Volume 86.7 fL (80-98); Mean Platelet Volume 10.2 fL (9.4-12.4); Monocytes Percent Auto 11.7 % (2-11); Neutrophils Percent Auto 58.9 % (45-73); Platelet Count 232 X10*3/uL (160-400); Red Blood Count 4.43 X10*6/uL (4.60-5.80); Red Cell Distribution Width 13.6 % (11.0-16.0); White Blood Count 8.4 X10*3/uL (4.8-10.8)
[2021-01-02 16:07] LABS: Estimated Average Glucose 180 mg/dL; Hemoglobin A1c % 7.9 %
[2021-01-02 16:30] LABS: Anion Gap 14 (12-20); Blood Urea Nitrogen 18 mg/dL (9-16); Calcium 9.4 mg/dL (8.4-10.2); Carbon Dioxide 23 mmol/L (22-29); Chloride 106 mmol/L (96-108); Estimated Glomerular Filt Rate > 60; Glucose Random 139 mg/dL (60-115); Potassium 4.3 mmol/L (3.3-5.1); Sodium 139 mmol/L (135-145)
== END 2021-01-02 14:07 | disposition home or self-care (01) ==
LOC: HO.XRAY 14:06
PROVIDERS: PCP Internal Medicine; Visit Provider Internal Medicine
DX: M25.532 Pain in left wrist (principal); I10 Essential (primary) hypertension; E11.9 Type 2 diabetes mellitus without complications
CPT/HCPCS: 36415; 73110; 80048; 83036; 85025

== ENCOUNTER → 2021-01-31 11:01 | Outpatient (BNVA) | payer MEDICARE, SELFPAY | PROVIDERS: PCP Internal Medicine; Visit Provider Orthopaedic Surgery | DX: M65.4 Radial styloid tenosynovitis [de Quervain] (principal) | CPT/HCPCS: 20550; 99202; J1100 ==

== ENCOUNTER 2021-03-16 07:49 | Outpatient (REF) | payer MEDICARE, SELFPAY ==
[2021-03-16 10:27] LABS: Anion Gap 12 (12-20); Blood Urea Nitrogen 19 mg/dL (9-16); Calcium 9.1 mg/dL (8.4-10.2); Carbon Dioxide 24 mmol/L (22-29); Chloride 106 mmol/L (96-108); Estimated Glomerular Filt Rate > 60; Glucose Fasting 183 mg/dL (60-99); Potassium 4.1 mmol/L (3.3-5.1); Sodium 138 mmol/L (135-145)
[2021-03-16 10:32] LABS: Creatinine Urine 189.82 mg/dL; Microalbum/Creatinine Ratio Ur 35.2 ug/mg cr
[2021-03-16 14:21] LABS: Estimated Average Glucose 197 mg/dL; Hemoglobin A1c % 8.5 %
== END 2021-03-16 07:50 | disposition home or self-care (01) ==
LOC: HO.10HDL 07:49
PROVIDERS: Visit Provider Internal Medicine
DX: E11.9 Type 2 diabetes mellitus without complications (principal); I10 Essential (primary) hypertension
CPT/HCPCS: 36415; 80048; 82043; 83036

== ENCOUNTER 2021-08-30 07:48 | Outpatient (REF) | payer MEDICARE, SELFPAY ==
[2021-08-30 10:47] LABS: MANUAL DIFF FLAG NO
[2021-08-30 11:07] LABS: Basophils Absolute Auto 0.1 X10*3/uL (0.0-0.2); Basophils Percent Auto 0.8 % (0-2); Eosinophils Absolute Auto 0.5 X10*3/uL (0.0-0.4); Hematocrit 35.8 % (42.0-52.0); Hemoglobin 11.9 g/dl (14.0-18.0); Imm Gran Abs Auto 0.03 X10*3/uL (0.00-0.03); Imm Gran Pct Auto 0.5 % (0.0-0.4); Lymphocytes Absolute Auto 1.4 X10*3/uL (1.2-4.9); Lymphocytes Percent Auto 21.2 % (20-40); Mean Corpuscular HGB Conc 33.2 g/dl (31.0-36.0); Mean Corpuscular Hemoglobin 28.8 pg (27.0-33.0); Mean Corpuscular Volume 86.7 fL (80.0-98.0); Mean Platelet Volume 10.2 fL (9.4-12.4); Monocytes Absolute Auto 0.7 X10*3/uL (0.1-1.2); Neutrophils Absolute Auto 3.7 x10*3/uL (2.0-8.3); Neutrophils Percent Auto 58.5 % (45-73); Platelet Count 217 X10*3/uL (160-400); Red Blood Count 4.13 X10*6/uL (4.60-5.80); Red Cell Distribution Width 14.1 % (11.0-16.0); White Blood Count 6.4 X10*3/uL (4.8-10.8)
[2021-08-30 11:19] LABS: Alanine Aminotransferase 24 U/L (0-40); Albumin Level 3.9 g/dL (3.5-5.0); Alkaline Phosphatase 95 U/L (39-117); Anion Gap 12 (12-20); Aspartate Amino Transferase 19 U/L (5-37); Bilirubin Total 0.4 mg/dL (0.0-1.0); Blood Urea Nitrogen 22 mg/dL (9-16); Calcium 8.9 mg/dL (8.4-10.2); Carbon Dioxide 24 mmol/L (22-29); Chloride 106 mmol/L (96-108); Estimated Glomerular Filt Rate > 60; Glucose Random 182 mg/dL (60-115); Potassium 4.6 mmol/L (3.3-5.1); Sodium 137 mmol/L (135-145); Total Protein 6.6 g/dL (6.5-8.0)
[2021-08-30 11:25] LABS: Estimated Average Glucose 177 mg/dL; Hemoglobin A1c % 7.8 %
[2021-08-30 11:38] LABS: Microalbum/Creatinine Ratio Ur 21.4 ug/mg cr
== END 2021-08-30 07:49 | disposition home or self-care (01) ==
LOC: HO.10HDL 07:48
PROVIDERS: Visit Provider Internal Medicine
DX: I10 Essential (primary) hypertension (principal); E11.9 Type 2 diabetes mellitus without complications
CPT/HCPCS: 36415; 80053; 82043; 83036; 85025

== ENCOUNTER 2021-09-05 09:32 | Outpatient (REF) | payer MEDICARE, SELFPAY ==
--- NOTE | ~2021-09-05 | XR_ITS ---
EXAMINATION: XR PELVIS CLINICAL INFORMATION: Left pelvic pain. COMPARISON: Radiographs dated 03/20/2012. TECHNIQUE: 2 AP views of the pelvis are submitted. FINDINGS: The bones and soft tissues are normal. No fracture or dislocation is seen. Sacroiliac and hip joints are normal. The bilateral femoral heads appear smooth. Pubic symphysis is normal. There are iliofemoral atherosclerotic calcifications. XR/XR pelvis 1-2V IMPRESSION: Unremarkable pelvis.
== END 2021-09-05 09:33 | disposition home or self-care (01) ==
LOC: HO.XRAY 09:32
PROVIDERS: PCP Internal Medicine; Visit Provider Internal Medicine
DX: R07.81 Pleurodynia (principal)
CPT/HCPCS: 72170

== ENCOUNTER 2021-09-27 11:57 | Outpatient (REF) | payer MEDICARE, SELFPAY | END 2021-09-27 11:58 | disposition home or self-care (01) | LOC: HO.HMGCX 11:57 | PROVIDERS: PCP Internal Medicine; Visit Provider Internal Medicine | DX: Z13.89 Encounter for screening for other disorder (principal) ==

== ENCOUNTER 2021-10-10 10:00 | Outpatient (RCR) | payer MEDICARE, SELFPAY ==
--- NOTE | ~2021-10-10 | XR_ITS ---
EXAMINATION: XR PELVIS CLINICAL INFORMATION: Left-sided hip pain COMPARISON: Radiographs pelvis 09/05/2021, CT pelvis 11/17/2019. TECHNIQUE: AP view of the pelvis. FINDINGS: There is no acute bony abnormality. No fracture, dislocation, destructive process. Again, there are degenerative changes lower lumbar spine with disc narrowing and spurring L4-L5 and L5-S1. There is whiskering from the lateral aspect of both iliac crests. Linear ossification 2 cm length tendon insertion superior aspect left hip greater trochanter also again seen. Probable mild bilateral superior medial hip narrowing. No subchondral sclerosis or erosive change. There are atherosclerotic calcifications vasculature femoral arteries. XR/XR pelvis 1-2V IMPRESSION: -Degenerative changes lower lumbar spine. -Ossification tendon insertion superior left greater trochanter 2 cm length. -Mild bilateral superior medial hip joint narrowing. No subchondral sclerosis or erosive change.
== END 2021-11-08 11:04 | disposition home or self-care (01) ==
LOC: HO.PTCHIC 10:00
PROVIDERS: PCP Internal Medicine; Visit Provider Internal Medicine
DX: S79.912D Unspecified injury of left hip, subsequent encounter (principal)
CPT/HCPCS: 72170; 97110; 97162

== ENCOUNTER 2021-12-26 13:43 | Outpatient (REF) | payer MEDICARE, SELFPAY ==
--- NOTE | ~2021-12-26 | US_ITS ---
EXAMINATION: Noninvasive assessment of the bilateral lower extremities with ARTERIAL DUPLEX and ANKLE BRACHIAL INDICES (ABIs). CLINICAL INFORMATION: Peripheral vascular disease. History of right femoral endarterectomy TECHNIQUE: Duplex Doppler techniques with waveform analysis and measurement of velocities in the bilateral common femoral, profunda femoris, superficial femoral, popliteal and tibial arteries were performed. Additionally, ankle pulse volume recordings, ankle pressure measurements and ankle brachial indices were obtained of the lower extremity arterial system bilaterally. The study was performed only at rest. COMPARISON: Arterial ultrasound evaluation from 11/28/2020 FINDINGS: DIRECT DUPLEX DOPPLER FINDINGS: RIGHT LEG: Common femoral artery: 242 cm/s, phasicity: Biphasic Profunda femoris artery: 256 cm/s, phasicity: Biphasic Superficial femoral artery (proximal): 115 cm/s, phasicity: Triphasic Superficial femoral artery (mid): 112 cm/s, phasicity: Triphasic Superficial femoral artery (distal): 190 cm/s, phasicity: Triphasic Popliteal artery: 139 cm/s, phasicity: Biphasic Posterior tibial artery: 90.3 cm/s, phasicity: Monophasic Peroneal artery: 116 cm/s, phasicity: Biphasic LEFT LEG: Common femoral artery: 558 cm/s, phasicity: Monophasic. Heavily calcified plaque Profunda femoris artery: 262 cm/s, phasicity: Monophasic Superficial femoral artery (proximal): 278 cm/s, phasicity: Monophasic Superficial femoral artery (mid): 61 cm/s, phasicity: Monophasic Superficial femoral artery (distal): 69.5 cm/s, phasicity: Monophasic Popliteal artery: 54.5 cm/s, phasicity: Monophasic Posterior tibial artery: 45.2 cm/s, phasicity: Monophasic Peroneal artery: Not visualized ANKLE-BRACHIAL INDEX: Right: 1.05?, previously 1.02 Left: 0.68, previously 0.62 ANKLE PRESSURES: Right: PT 132, DP 111 Left: PT?86, DP?71 ANKLE PVR WAVEFORMS: Right: Normal Left: Dampened US/US arterial duplex LE BI IMPRESSION: Right leg: Normal ankle brachial index which is stable compared to the prior exam. Velocities and waveforms are grossly unremarkable within the right lower extremity. Velocities have improved in the proximal to mid superficial femoral artery compared to the prior exam Left leg: Moderately decreased ankle brachial index which is stable compared to the prior exam. Markedly elevated velocity with a calcified plaque and severe stenosis again seen in the common femoral artery. Elevated velocities also seen in the proximal superficial femoral artery consistent with significant stenosis. Moderately dampened waveforms seen in the distal superficial femoral artery, popliteal and below-knee runoff vessels. Overall no significant change compared the prior exam ESTHER Reference: - >1.4 = calcified vessels - 0.9 - 1.4 = normal - no significant arterial disease - 0.7 - 0.89 = mild peripheral arterial disease - 0.51 - 0.69 = moderate peripheral arterial disease - ? 0.50 = severe peripheral arterial disease - < .30 = critical arterial disease
== END 2021-12-26 13:44 | disposition home or self-care (01) ==
LOC: HO.US 13:43
PROVIDERS: Visit Provider Surgery Vascular Surgery
DX: I73.9 Peripheral vascular disease, unspecified (principal)
CPT/HCPCS: 93923; 93925

== ENCOUNTER → 2022-01-30 13:59 | Outpatient (BNVA) | payer MEDICARE, SELFPAY | PROVIDERS: PCP Internal Medicine; Visit Provider Surgery Vascular Surgery | DX: I73.9 Peripheral vascular disease, unspecified (principal) | CPT/HCPCS: 99212 ==

== ENCOUNTER 2022-03-14 07:40 | Outpatient (REF) | payer MEDICARE, SELFPAY ==
[2022-03-14 10:59] LABS: MANUAL DIFF FLAG NO
[2022-03-14 11:06] LABS: Basophils Percent Auto 0.5 % (0-2); Eosinophils Absolute Auto 0.5 X10*3/uL (0.0-0.4); Eosinophils Percent Auto 7.9 % (0-4); Hematocrit 38.8 % (42.0-52.0); Hemoglobin 12.8 g/dl (14.0-18.0); Imm Gran Abs Auto 0.03 X10*3/uL (0.00-0.03); Imm Gran Pct Auto 0.5 % (0.0-0.4); Lymphocytes Absolute Auto 1.6 X10*3/uL (1.2-4.9); Lymphocytes Percent Auto 25.2 % (20-40); Mean Corpuscular Hemoglobin 28.6 pg (27.0-33.0); Mean Corpuscular Volume 86.8 fL (80.0-98.0); Mean Platelet Volume 10.5 fL (9.4-12.4); Monocytes Absolute Auto 0.8 X10*3/uL (0.1-1.2); Monocytes Percent Auto 12.8 % (2-11); Neutrophils Absolute Auto 3.4 x10*3/uL (2.0-8.3); Neutrophils Percent Auto 53.1 % (45-73); Platelet Count 214 X10*3/uL (160-400); Red Blood Count 4.47 X10*6/uL (4.60-5.80); Red Cell Distribution Width 13.7 % (11.0-16.0); White Blood Count 6.4 X10*3/uL (4.8-10.8)
[2022-03-14 11:26] LABS: Alanine Aminotransferase 20 U/L (0-40); Albumin Level 4.2 g/dL (3.5-5.0); Alkaline Phosphatase 102 U/L (39-117); Anion Gap 11 (12-20); Aspartate Amino Transferase 18 U/L (5-37); Bilirubin Total 0.5 mg/dL (0.0-1.0); Blood Urea Nitrogen 21 mg/dL (9-16); Calcium 9.4 mg/dL (8.4-10.2); Carbon Dioxide 27 mmol/L (22-29); Chloride 104 mmol/L (96-108); Cholesterol 162 mg/dL; Estimated Glomerular Filt Rate > 60; Glucose Fasting 183 mg/dL (60-99); HDL Cholesterol 41 mg/dL; LDL Cholesterol Calculated 78 mg/dl; Potassium 4.3 mmol/L (3.3-5.1); Sodium 138 mmol/L (135-145); Total Protein 6.9 g/dL (6.5-8.0); Triglycerides 216 mg/dL
[2022-03-14 11:40] LABS: Estimated Average Glucose 183 mg/dL
[2022-03-14 12:48] LABS: Creatinine Urine 106.09 mg/dL; Microalbum/Creatinine Ratio Ur 21.6 ug/mg cr
== END 2022-03-14 07:41 | disposition home or self-care (01) ==
LOC: HO.10HDL 07:40
PROVIDERS: Visit Provider Internal Medicine
DX: I25.10 Atherosclerotic heart disease of native coronary artery without angina pectoris (principal); I10 Essential (primary) hypertension; E78.00 Pure hypercholesterolemia, unspecified; E11.9 Type 2 diabetes mellitus without complications
CPT/HCPCS: 36415; 80053; 80061; 82043; 83036; 85025

== ENCOUNTER 2022-06-14 06:12 | Day surgery (SDC) | payer MEDICARE, SELFPAY ==
--- NOTE | 2022-06-13 10:33 | HO.ANESPROP2 ---
HPI - Anesthesia Eval Consult details Narrative: 82yo M for Upper Endoscopy with Balloon Dilitation ASA and Plavix - PVD, CAD Stable at 04/2022 cardiology visit [facility] Active Problems Active Problems: All Active Problems (Updated 01/31/21 @ 11:59 by Myra Evangelista MD) De Quervain's tenosynovitis, left (Acute) Cellulitis (Acute) PAD (peripheral artery disease) (Acute) Past Medical History Medical History Anemia Angina pectoris Arthritis CAD (coronary artery disease) Diabetes Environmental allergies History of prostate cancer Hx of malignant melanoma Hyperlipidemia Hypertension Peripheral artery disease Sleep apnea Family History Family history of problems with anesthesia: No Surgical History Surgical History (Updated 06/13/22 @ 11:04 by Mariela Rose NP) H/O arthroscopy of right knee H/O heart artery stent (~2004) Hx of appendectomy Hx of cholecystectomy Hx of colonoscopy Hx of foot surgery Hx of tonsillectomy S/P aortogram with runoff S/P cardiac cath History of Problems with Anesthesia: No Social History Social History Household Members: Spouse Housing: House Are you a primary physician assistant primary care to a significant other at home: Yes ( AT HOME HAD CVA) Do you presently have visiting nurse or other home services: No Alcohol intake: never Patient Tobacco Use Status: Former Tobacco user Quit Date: 1972 Tobacco use type: Cigarette Second Hand Smoke Exposure: No service: No Meds Allergies Allergy/AdvReac Type Severity Reaction Status Date / Time No Known Allergies Allergy Verified 06/14/22 06:36 [No Known Allergies*] Home Medications Medication Instructions Recorded Confirmed Last Taken Type losartan 50 mg tablet 50 mg PO DAILY 01/06/20 06/14/22 06/13/22 History metoprolol tartrate 25 mg tablet 25 mg PO DAILY 01/06/20 06/14/22 06/13/22 History simvastatin 40 mg tablet 40 mg PO BEDTIME 01/06/20 06/14/22 Unknown History glipizide 5 mg tablet 5 mg PO DAILY 01/25/20 06/14/22 06/13/22 History isosorbide mononitrate 30 mg 15 mg PO DAILY 01/25/20 06/14/22 06/13/22 History tablet,extended release 24 hr nitroglycerin 0.4 mg sublingual 0.4 mg sublingual Q5M PRN Chest 01/25/20 06/14/22 Unknown History tablet Pain Exam Exam Date and Time: June 13, 2022 1033 Pertinent Lab Results Pertinent Lab Results: Laboratory Tests 03/14/22 03/14/22 07:51 07:51 WBC 6.4 Hgb 12.8 L Hct 38.8 L Plt Count 214 Sodium 138 Potassium 4.3 Chloride 104 Carbon Dioxide 27 BUN 21 H Creatinine 1.02 Narrative Narrative: ECHO 10/202122 Grade 1 diastolic dysfunction nml LV systolic function No valve disease Assessment and Plan Assessment Anesthesia Assessment: Chart Reviewed Final Anesthetic Review Family History of Problems with Anesthesia: No History of Problems with Anesthesia: No
[2022-06-14 06:19] VITALS: BMI 29.8
[2022-06-14 06:35] VITALS: BP 199/71; PULSE 47; RESP 16; TEMP 36.6; O2SAT 98
[2022-06-14 06:40] LABS: Glucose, Whole Blood 153 mg/dL (60-115)
[2022-06-14] MEDS: Lactated Ringers 1,000 ML 100 ML IVCONT (06:48)
--- NOTE | 2022-06-14 07:32 | PC.NURSE ---
Patient arrived. Monitor showing bradycardia 47-52, asymptomatic. Patient states I have bradycardia . No EKG on file. Patient states I see [facility] cardiology . No records found in [facility] system. Dr. Harris at bedside and made aware. No new orders at this time.
[2022-06-14 08:18] VITALS: BP 164/60; PULSE 54; RESP 18; TEMP 36.9; O2SAT 98
--- NOTE | 2022-06-14 08:22 | P.BOP_ITS ---
Brief Operative Note Date of Service: 06/14/22 Pre-op diagnosis: GERD Post-op diagnosis: other (Small hiatal hernia, GERD) Procedure: EGD with biopsies Surgeon: Hiren Guevara Anesthesia: MAC Was an Component Assembler Supervisor used for this Procedure?: No Estimated blood loss (mL): 2.0 Pathology: other (A. EG Junction at 39cm) Condition: stable Disposition: PACU
[2022-06-14 08:33] VITALS: BP 152/62; PULSE 67; RESP 18; TEMP 36.9; O2SAT 99
--- NOTE | 2022-06-14 10:20 | OP_ITS ---
SURGEON: Hiren Guevara MD INDICATIONS: The patient presents for evaluation of gastroesophageal reflux. Full consent has been obtained from him for this, including risks of bleeding and perforation. PREOPERATIVE DIAGNOSIS: Gastroesophageal reflux. POSTOPERATIVE DIAGNOSIS: PROCEDURE PERFORMED: Esophagogastroduodenoscopy with biopsies. ESTIMATED BLOOD LOSS: COMPLICATIONS: ANESTHESIA: Monitored anesthesia care. ASSISTANTS: SPECIMENS: PREOPERATIVE DIAGNOSES: Gastroesophageal reflux, small hiatal hernia. DESCRIPTION OF PROCEDURE: The patient was placed in the left lateral decubitus position. The Olympus video gastroscope was passed into the posterior oropharynx and upper esophagus under direct vision. The scope was passed slowly to the distal esophagus. The gastroesophageal junction appeared at 39 cm. There is very minimal irregularity, but no sign of esophagitis, stricture, ulceration, mass, nor any definitive Oconnor's mucosa. The scope easily entered into the stomach. There was a small hiatal hernia. The scope was advanced to the pylorus, and the duodenum was cannulated to the descending portion. The duodenum including the bulb appeared normal without mass or ulceration. The scope was withdrawn back in the stomach. The gastric antrum and body appeared normal with good peristalsis. The scope was retroflexed visualizing the proximal stomach carefully, which appeared normal without any sign of mass or ulceration. The scope was straightened and withdrawn back in the esophagus. With insufflation of air, there was no sign of any esophageal stricture nor ring. No dilation was performed. Biopsies were obtained at the EG junction at 39 cm. Proximal to this, the esophageal mucosa appeared normal. The scope was withdrawn from the patient. He tolerated the procedure well and was returned to the recovery area in stable condition. IMPRESSION: Small hiatal hernia, gastroesophageal reflux. PLAN: The results of the biopsies will be checked. At this point, he reports he is doing well on his one omeprazole daily. He denies any dysphagia at this time. I did advise him to continue his omeprazole retirement. If things are stable, he will see me otherwise on a p.r.n. basis. He was advised to resume his aspirin in 24 hours. This has been discussed with his son. MD DEBI Brunson/ACE / [id number] VANESSA
== END 2022-06-14 09:07 | disposition home or self-care (01) ==
PROVIDERS: PCP Internal Medicine; Visit Provider Internal Medicine
PROC: (CPT 43239; principal; 2022-06-14 07:30)
DX: K21.9 Gastro-esophageal reflux disease without esophagitis (principal); R13.19 Other dysphagia; K44.9 Diaphragmatic hernia without obstruction or gangrene; E11.9 Type 2 diabetes mellitus without complications; I10 Essential (primary) hypertension; E78.00 Pure hypercholesterolemia, unspecified; I73.9 Peripheral vascular disease, unspecified; Z79.899 Other long term (current) drug therapy; Z79.84 Long term (current) use of oral hypoglycemic drugs; Z79.82 Long term (current) use of aspirin; Z87.891 Personal history of nicotine dependence
CPT/HCPCS: 43239; 82947; 88305

== ENCOUNTER 2022-06-22 13:50 | Outpatient (REF) | payer MEDICARE, SELFPAY ==
[2022-06-22 16:09] LABS: Estimated Average Glucose 194 mg/dL; Hemoglobin A1c % 8.4 %
[2022-06-22 16:20] LABS: Anion Gap 12 (12-20); Blood Urea Nitrogen 23 mg/dL (9-16); Carbon Dioxide 26 mmol/L (22-29); Chloride 106 mmol/L (96-108); Estimated Glomerular Filt Rate > 60; Glucose Random 138 mg/dL (60-115); Potassium 4.5 mmol/L (3.3-5.1); Sodium 139 mmol/L (135-145)
== END 2022-06-22 13:51 | disposition home or self-care (01) ==
LOC: HO.LAB 13:50
PROVIDERS: PCP Internal Medicine; Visit Provider Internal Medicine
DX: E11.9 Type 2 diabetes mellitus without complications (principal); I25.10 Atherosclerotic heart disease of native coronary artery without angina pectoris; I10 Essential (primary) hypertension
CPT/HCPCS: 36415; 80048; 83036

== ENCOUNTER 2022-06-29 10:54 | Outpatient (REF) | payer MEDICARE, SELFPAY ==
--- NOTE | ~2022-06-29 | XR_ITS ---
EXAMINATION: XR CHEST CLINICAL INFORMATION: Cough COMPARISON: 11/06/2020 TECHNIQUE: 2 views of the chest were obtained. FINDINGS: Clear lungs. No pneumothorax or pleural effusion. Unchanged cardiomediastinal silhouette. XR/XR chest 2V Impression: Clear lungs.
== END 2022-06-29 10:55 | disposition home or self-care (01) ==
LOC: HO.XRAY 10:54
PROVIDERS: PCP Internal Medicine; Visit Provider Internal Medicine
DX: R05.9 Cough, unspecified (principal)
CPT/HCPCS: 71046

== ENCOUNTER 2022-12-14 14:03 | Outpatient (REF) | payer MEDICARE, SELFPAY ==
--- NOTE | ~2022-12-14 | XR_ITS ---
EXAMINATION: XR CHEST CLINICAL INFORMATION: Reason for Exam COUGH, CONGESTION,CAD COMPARISON: Chest radiograph 06/29/2022 TECHNIQUE: 2 views of the chest FINDINGS: Lines and tubes: None. Patchy left lower lobe consolidation. No pleural effusion. No pneumothorax. Unchanged cardiomediastinal silhouette. XR/XR chest 2V IMPRESSION: Patchy left lower lobe consolidation may reflect pneumonia or aspiration in the appropriate clinical setting, recommend follow-up radiographs to ensure resolution. The report will be called to the ordering clinician by a [facility] Physician Director Software Quality Assurance.
[2022-12-14 14:24] LABS: MANUAL DIFF FLAG NO
[2022-12-14 14:47] LABS: Basophils Absolute Auto 0.1 X10*3/uL (0.0-0.2); Basophils Percent Auto 0.5 % (0-2); Eosinophils Absolute Auto 0.3 X10*3/uL (0.0-0.4); Eosinophils Percent Auto 2.7 % (0-4); Imm Gran Abs Auto 0.05 X10*3/uL (0.00-0.03); Imm Gran Pct Auto 0.5 % (0.0-0.4); Lymphocytes Absolute Auto 2.2 X10*3/uL (1.2-4.9); Mean Corpuscular HGB Conc 33.3 g/dl (31.0-36.0); Mean Corpuscular Hemoglobin 28.4 pg (27.0-33.0); Mean Corpuscular Volume 85.2 fL (80.0-98.0); Mean Platelet Volume 9.8 fL (9.4-12.4); Monocytes Absolute Auto 1.3 X10*3/uL (0.1-1.2); Monocytes Percent Auto 13.4 % (2-11); Neutrophils Absolute Auto 5.7 x10*3/uL (2.0-8.3); Neutrophils Percent Auto 59.9 % (45-73); Platelet Count 252 X10*3/uL (160-400); Red Blood Count 4.58 X10*6/uL (4.60-5.80); Red Cell Distribution Width 14.2 % (11.0-16.0); White Blood Count 9.5 X10*3/uL (4.8-10.8)
[2022-12-14 14:55] LABS: D Dimer High Sensitivity 203 NG/ML
[2022-12-14 15:22] LABS: Anion Gap 12 (12-20); Blood Urea Nitrogen 22 mg/dL (9-16); Calcium 10.1 mg/dL (8.4-10.2); Carbon Dioxide 25 mmol/L (22-29); Chloride 107 mmol/L (96-108); Estimated Glomerular Filt Rate > 60; Glucose Random 88 mg/dL (60-115); Potassium 4.1 mmol/L (3.3-5.1); Sodium 140 mmol/L (135-145)
[2022-12-14 15:33] LABS: Troponin-I High Sensitivity 10.6 ng/L (<3.5-35.0)
== END 2022-12-14 14:04 | disposition home or self-care (01) ==
LOC: HO.LAB 14:03
PROVIDERS: PCP Internal Medicine; Visit Provider Internal Medicine
DX: R05.9 Cough, unspecified (principal); E11.9 Type 2 diabetes mellitus without complications; I25.10 Atherosclerotic heart disease of native coronary artery without angina pectoris
CPT/HCPCS: 36415; 71046; 80048; 82550; 84484; 85025; 85379; 86140

== ENCOUNTER 2023-01-10 14:08 | Outpatient (REF) | payer MEDICARE, SELFPAY ==
--- NOTE | ~2023-01-10 | XR_ITS ---
EXAMINATION: XR CHEST 2 VIEWS CLINICAL INFORMATION: Cough. COMPARISON: Radiographs dated 12/14/2022. TECHNIQUE: Frontal and lateral views of the chest were obtained. FINDINGS: The heart, great vessels, pulmonary vasculature and mediastinum are normal. There is atherosclerotic calcification of the aortic knob. The lungs show no focal infiltrate, effusion or pneumothorax. There is mild elevation of the right hemidiaphragm. There is no acute osseous abnormality. There is multi-level thoracic spondylosis. XR/XR chest 2V IMPRESSION: No active cardiopulmonary disease.
== END 2023-01-10 14:09 | disposition home or self-care (01) ==
LOC: HO.XRAY 14:08
PROVIDERS: PCP Internal Medicine; Visit Provider Internal Medicine
DX: R05.9 Cough, unspecified (principal); Z87.01 Personal history of pneumonia (recurrent)
CPT/HCPCS: 71046

== ENCOUNTER 2023-01-21 07:30 | Outpatient (REF) | payer MEDICARE, SELFPAY ==
[2023-01-21 11:08] LABS: Estimated Average Glucose 177 mg/dL; Hemoglobin A1c % 7.8 % (<6.0)
[2023-01-21 11:25] LABS: Anion Gap 14 (12-20); Blood Urea Nitrogen 16 mg/dL (9-16); Calcium 9.7 mg/dL (8.4-10.2); Carbon Dioxide 25 mmol/L (22-29); Chloride 104 mmol/L (96-108); Estimated Glomerular Filt Rate > 60; Glucose Random 169 mg/dL (60-115); Potassium 4.4 mmol/L (3.3-5.1); Sodium 139 mmol/L (135-145)
== END 2023-01-21 07:31 | disposition home or self-care (01) ==
LOC: HO.10HDL 07:30
PROVIDERS: Visit Provider Internal Medicine
DX: Z13.89 Encounter for screening for other disorder (principal)
CPT/HCPCS: 36415; 80048; 83036

== ENCOUNTER 2023-01-21 12:53 | Outpatient (REF) | payer MEDICARE, SELFPAY ==
--- NOTE | ~2023-01-21 | US_ITS ---
EXAMINATION: ANKLE-BRACHIAL INDICES SINGLE LEVEL PULSE VOLUME RECORDING ARTERIAL DUPLEX BILATERAL LEGS CLINICAL INFORMATION: Peripheral vascular disease. Hyperlipidemia. Diabetes. History of right femoral artery endarterectomy. COMPARISON: 12/26/2021. TECHNIQUE: Ankle-brachial indices and PVR at the ankle were obtained. Duplex Doppler of the bilateral lower extremity arterial systems was performed. FINDINGS: RIGHT: Ankle-brachial index: 0.97 (previous 1.05) PVR: Mildly abnormal Common femoral: PSV 209 cm/s. Biphasic waveform. Deep femoral: PSV 71 cm/s. Biphasic waveform. Proximal superficial femoral: PSV 198 cm/s. Triphasic waveform. Mid superficial femoral: PSV 218 cm/s. Triphasic waveform. Distal superficial femoral: PSV 165 cm/s. Triphasic waveform. Popliteal: PSV 164 cm/s. Triphasic waveform. Posterior tibial: PSV 106 cm/s. Triphasic waveform. Peroneal: PSV 124 cm/s. Triphasic waveform. LEFT: Ankle-brachial index: 0.70 (previous 0.68) PVR: Abnormal Common femoral: PSV 310 cm/s. Biphasic waveform. Severe calcified plaque. Deep femoral: PSV 54 cm/s. Biphasic waveform. Proximal superficial femoral: PSV 100 cm/s. Monophasic waveform. Mid superficial femoral: PSV 83 cm/s. Triphasic waveform. Distal superficial femoral: PSV 101 cm/s. Monophasic waveform. Popliteal: PSV 71 cm/s. Monophasic waveform. Posterior tibial: PSV 93 cm/s. Monophasic waveform. Peroneal: PSV 58 cm/s. Monophasic waveform. US/US arterial duplex LE BI IMPRESSION: Mild peripheral arterial disease on the right. Stable compared to prior Moderate peripheral arterial disease on the left with a severe calcified stenosis of the common femoral artery. Stable compared to prior.
--- NOTE | ~2023-01-21 | US_ITS ---
EXAMINATION: ANKLE-BRACHIAL INDICES SINGLE LEVEL PULSE VOLUME RECORDING ARTERIAL DUPLEX BILATERAL LEGS CLINICAL INFORMATION: Peripheral vascular disease. Hyperlipidemia. Diabetes. History of right femoral artery endarterectomy. COMPARISON: 12/26/2021. TECHNIQUE: Ankle-brachial indices and PVR at the ankle were obtained. Duplex Doppler of the bilateral lower extremity arterial systems was performed. FINDINGS: RIGHT: Ankle-brachial index: 0.97 (previous 1.05) PVR: Mildly abnormal Common femoral: PSV 209 cm/s. Biphasic waveform. Deep femoral: PSV 71 cm/s. Biphasic waveform. Proximal superficial femoral: PSV 198 cm/s. Triphasic waveform. Mid superficial femoral: PSV 218 cm/s. Triphasic waveform. Distal superficial femoral: PSV 165 cm/s. Triphasic waveform. Popliteal: PSV 164 cm/s. Triphasic waveform. Posterior tibial: PSV 106 cm/s. Triphasic waveform. Peroneal: PSV 124 cm/s. Triphasic waveform. LEFT: Ankle-brachial index: 0.70 (previous 0.68) PVR: Abnormal Common femoral: PSV 310 cm/s. Biphasic waveform. Severe calcified plaque. Deep femoral: PSV 54 cm/s. Biphasic waveform. Proximal superficial femoral: PSV 100 cm/s. Monophasic waveform. Mid superficial femoral: PSV 83 cm/s. Triphasic waveform. Distal superficial femoral: PSV 101 cm/s. Monophasic waveform. Popliteal: PSV 71 cm/s. Monophasic waveform. Posterior tibial: PSV 93 cm/s. Monophasic waveform. Peroneal: PSV 58 cm/s. Monophasic waveform. US/US ESTHER complete IMPRESSION: Mild peripheral arterial disease on the right. Stable compared to prior Moderate peripheral arterial disease on the left with a severe calcified stenosis of the common femoral artery. Stable compared to prior.
== END 2023-01-21 12:54 | disposition home or self-care (01) ==
LOC: HO.US 12:53
PROVIDERS: PCP Internal Medicine; Visit Provider Surgery Vascular Surgery
DX: I70.213 Atherosclerosis of native arteries of extremities with intermittent claudication, bilateral legs (principal); E11.9 Type 2 diabetes mellitus without complications
CPT/HCPCS: 36415; 80048; 83036; 93923; 93925

== ENCOUNTER 2023-02-19 11:15 | Outpatient (AMB) | payer MEDICARE, SELFPAY ==
--- NOTE | 2023-02-19 11:14 | MHC.OFFVIS ---
Intake Vital Signs 02/19/23 11:14 Height 5 ft 11 in Intake Visit Reasons: FU US Intake Note: 1 yr follow up ARterial US bilateral LE w/ Hx of Right Femoral Endarterectomy 01/25/2020. Pt states his only complaint is arthritis in his hips, knees and has pain. Accompanied by: Self / Same As Patient Allergies No Known Allergies [No Known Allergies*] Allergy (Verified 02/19/23 11:19) HPI FU US HPI Details Very pleasant 83-year-old gentleman presents for routine surveillance follow-up. He had undergone right femoral endarterectomy nearly 3 years prior. He notes no difficulty ambulating. He just celebrated his 83rd birthday. He remains quite active around the house. He does maintain [address] where he does all the maintenance outside as well. He now presents with son for follow-up. 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 a significant other at home: Yes ( AT HOME HAD CVA) Do you presently have visiting nurse or other home services: No Alcohol intake: never Patient Tobacco Use Status: Former Tobacco user Quit Date: 1972 Tobacco use type: Cigarette Second Hand Smoke Exposure: No service: No Review of Systems Const All systems reviewed & are unremarkable except as noted in HPI and below Reports no additional complaints ENT Reports Normal hearing present Card Denies chest pain, Denies chest pain at rest, Denies chest pain with activity and Denies pedal edema Resp Denies cough GI Denies abdominal pain Musc Denies abnormal gait, Denies muscle cramps and Denies radiating pain into limb Skin/Breast Denies skin ulcer and Denies wounds Neuro Reports Normal hearing present and Denies abnormal gait Psych Reports no additional complaints Physical Exam Const General: cooperative, healthy appearing and comfortable Orientation/consciousness: oriented to person, oriented to place and oriented to time HEENT Head: Yes normal to inspection Neck Neck: Yes normal visual inspection Carotids: no bruits Chest Chest palpation & inspection: normal inspection of the chest Resp Effort & Inspection: normal respiratory effort and able to speak in complete sentences Auscultation: clear to auscultation bilaterally, no crackles, no rales, no rhonchi and no wheezes Cardio Other: Bilateral DP signals Rate: regular rate Rhythm: regular rhythm Heart sounds: S1 normal heart sound present and S2 normal heart sound present Bruits: no carotid bruits Peripheral pulses: Peripheral pulses 2+ throughout GI Inspection: Yes normal to inspection Skin Wounds: no wounds Hair: normal Neuro General: oriented to person, oriented to place and oriented to time Cranial nerves: Yes CN's II-XII intact bilaterally and Yes Normal hearing present Cognition (Neuro): normal cognition Motor exam (neuro): 5/5 motor strength present throughout Extrem Other: venous exam: No significant superficial varicosities or spider telangiectasias, minimal edema General: No clubbing, No cyanosis and No edema Psych Appearance: grossly normal Mental Status: mental status grossly normal Speech and movement: Normal speech and movement present Results Reviewed Results Reviewed: Noninvasive arterial testing dated 01/21/2023 demonstrates ESTHER on the right of 0.97 and on the left of 0.7. Written report and images were reviewed. Assessment & Plan Assessment & Plan (1) PAD (peripheral artery disease): Comment: 01/25/2020 - right femoral endarterectomy Code(s): I73.9 - Peripheral vascular disease, unspecified Plan: In short patient has stable claudication. I did review the pathophysiology of peripheral vascular disease with the patient. In addition we did discuss routine conservative measures including a healthy diet and the importance of exercise and ambulation. We did discuss risk factor modification. The patient will continue to to follow-up with surveillance follow-up in approximately 1 year. Thank you for allowing us to participate in this patient's care. If there are any questions or concerns please do not hesitate to contact us. Orders: Orders US arterial duplex LE BI 364 Days I73.9 - Peripheral vascular disease, unspecified Coding Level of Care Code Est Pt Level 4 (47647) Diagnoses PAD (peripheral artery disease) I73.9
== END 2023-02-19 11:50 | disposition home or self-care (01) ==
PROVIDERS: PCP Internal Medicine; Visit Provider Surgery Vascular Surgery
DX: I73.9 Peripheral vascular disease, unspecified (principal)
CPT/HCPCS: 99213

== ENCOUNTER → 2023-02-19 11:15 | Outpatient (BNVA) | payer MEDICARE, SELFPAY | PROVIDERS: PCP Internal Medicine; Visit Provider Surgery Vascular Surgery | DX: I73.9 Peripheral vascular disease, unspecified (principal) | CPT/HCPCS: 99212 ==

== ENCOUNTER 2023-03-02 11:15 | Observation (INO) | payer MEDICARE, SELFPAY ==
[2023-03-02] VITALS (9 sets, daily range): BP systolic 172–203; BP diastolic 57–80; PULSE 54–63; RESP 14–20; TEMP 35.9–36.8; O2SAT 95–100; BMI 31.2
--- NOTE | ~2023-03-02 | CT_ITS ---
EXAMINATION: CT ANGIOGRAM OF THE HEAD CT ANGIOGRAM OF THE NECK CLINICAL INFORMATION: Aphasia and neuro deficit. COMPARISON: CT scan of the head 10 03/02/2023. MRI scan of the brain and CTA of the head and neck 11/07/2020. TECHNIQUE: Test bolus series followed by intravenous administration 70 mL of Omnipaque 350. Helical imaging was performed in the axial plane from the mediastinum to the skull vertex. The degree of stenosis is based off NASCET criteria. The data was processed at the interventional technologist workstation for generation of MIP images. Three-dimensional volume rendered reformatted images were also generated at an offline 3-D workstation. This CT examination was performed using dose optimization techniques as appropriate, variously including the following: *Automated exposure control *Adjustment of mA and/or kV according to patient size (this includes techniques or standardized protocols for targeted exams where dose is matched to indication/reason for exam; i.e. extremities or head) *Use of iterative reconstruction technique DLP: 1680 mGy-cm. FINDINGS: CT Head: There is no evidence of acute intracranial hemorrhage or territorial infarction. No abnormal mass-effect or midline shift is seen. [place] to white matter differentiation is well preserved. No extra-axial fluid collections are identified. There is no abnormal enhancement. There is commensurate prominence of the ventricles and sulci consistent with diffuse volume loss. There are scattered areas of low-attenuation in the periventricular and subcortical white matter, which are consistent with chronic microvascular ischemic changes. In addition, there are chronic lacunar infarcts in the left caudate head and right thalamus, and there is an area of gliosis in the anterior left centrum semiovale body; these findings were demonstrated on the prior MRI scan. There are no acute osseous or soft tissue abnormalities. There are mild arthropathic changes of the left temporomandibular joint. The study redemonstrates heterogenous attenuation in the clivus, which may be consistent with a benign fibro-osseous process. There is ankylosis of the bilateral atlantooccipital joints. The mastoid air cells are well-aerated. There is mucoperiosteal thickening in the bilateral maxillary and ethmoid sinuses, with suggestion of fluid levels in the maxillary sinuses bilaterally. CTA Neck: There are atheromatous calcifications of the aortic arch and at the origins of the great vessels of the neck, without significant stenosis. There is a common origin of the left common carotid and brachiocephalic arteries. There are atheromatous calcifications in the subclavian arteries bilaterally. The bilateral common carotid arteries are patent. There are atheromatous calcifications of the carotid bifurcations bilaterally, with mild narrowing of the left. Both cervical internal carotid arteries are patent; the study demonstrates slight asymmetric caliber of the cervical internal carotid arteries, slightly larger on the left. There is moderate tortuosity of the left cervical internal carotid artery. There are atheromatous calcifications at the origin of the right vertebral artery. Both vertebral arteries are patent throughout their cervical course extending intradurally. The vertebral arteries are codominant Nonvascular: Imaging is suboptimal due to patient motion artifact. There are emphysematous changes in the upper lung bianchi bilaterally. The thyroid gland is normal in size. There is no cervical lymphadenopathy. The study demonstrates postoperative changes in the left parotid region. Embolization is diffusely decreased. There is mild multilevel spondylosis and there is severe multilevel facet arthropathy. There are no acute fractures or subluxations. CTA Head: There are mild atheromatous calcifications of the cavernous and supraclinoid internal carotid arteries bilaterally, without significant stenosis. The A1 segment of the left anterior cerebral artery has slightly irregular caliber, similar compared to prior imaging. The study redemonstrates severe stenosis of the proximal A2 segment of the right anterior cerebral artery. More distally, the A2 segments are patent. There is mild irregular caliber of the mid M1 segment of the right middle cerebral artery. There is mild irregular caliber of the M2 segments of the middle cerebral arteries bilaterally. There are no aneurysms or vascular malformations. In the posterior circulation the proximal intradural vertebral arteries are codominant. There are moderate atheromatous calcifications at the proximal/mid intradural segment of the left vertebral artery, with irregular caliber distal. There is approximately 50% stenosis in the mid/distal left intradural vertebral artery, but the vessel is patent distal to this. The basilar artery is patent, and has a slightly irregular caliber proximally. The posterior cerebral arteries are patent bilaterally. There is irregular caliber at the P1/P2 region of the right posterior cerebral artery similar compared to prior imaging. There is also mild narrowing at the proximal P2 segment of the left posterior cerebral artery. The venous sinuses opacify normally. CT/CT angio head neck stroke IMPRESSION: CT Head and Neck: 1. There are no acute bleeds or territorial infarcts. There are no masses or areas of abnormal enhancement. 2. There is diffuse volume loss and there are chronic microvascular ischemic changes and lacunar infarcts. 3. There are multilevel spondylitic and facet arthropathic changes in the cervical spine. 4. There are fluid levels in the maxillary sinuses bilaterally. There are sequelae of prior surgery in the left parotid region. CTA Head and Neck: 1. There are atheromatous calcifications at the carotid bifurcations bilaterally, without significant stenosis. 2. Intracranially the study redemonstrates irregular caliber of the anterior and posterior circulations as described above. There are no aneurysms or vascular malformations.
--- NOTE | ~2023-03-02 | CT_ITS ---
EXAMINATION: CT HEAD WITHOUT CONTRAST (STROKE PROTOCOL) CLINICAL INFORMATION: Stroke protocol. Weakness, slurred speech COMPARISON: None available. TECHNIQUE: Contiguous axial imaging was performed from the skull base to vertex without intravenous administration of contrast. This CT examination was performed using dose optimization techniques as appropriate, variously including the following: *Automated exposure control *Adjustment of mA and/or kV according to patient size (this includes techniques or standardized protocols for targeted exams where dose is matched to indication/reason for exam; i.e. extremities or head) *Use of iterative reconstruction technique DLP: 788 mGy-cm FINDINGS: There is no acute intra-axial, extra-axial bleed, mass effect or midline shift. There is no acute infarction or lesion. No edema. The lateral ventricles are mildly enlarged but symmetrical. Bone windows reveal no calvarial abnormality. There is no scalp soft tissue abnormality. Bilateral paranasal sinuses and mastoid air cells are well-aerated with mild mucoperiosteal thickening bilateral maxillary and ethmoid sinuses. CT/CT head for stroke IMPRESSION: No acute intracranial process. This critical result was discussed with Dr. Julia Wells at at 1146 and on 03/02/2023. It was ascertained that the content and urgency of the report was understood at the time of direct communication.
--- NOTE | 2023-03-02 11:22 | ECG_ITS ---
Test Reason : STROKE Blood Pressure : / mmHG Vent. Rate : 058 BPM Atrial Rate : 058 BPM P-R Int : 220 ms QRS Dur : 106 ms QT Int : 448 ms P-R-T Axes : 065 -04 -75 degrees QTc Int : 439 ms Sinus bradycardia with 1st degree A-V block Nonspecific ST and T wave abnormality Abnormal ECG When compared with ECG of 06-NOV-2020 19:58, Nonspecific T wave abnormality, worse in Inferior leads Referred By: Martha Omer Electronically Signed By:MIRELLA DALEY MD
--- NOTE | 2023-03-02 11:27 | ED_ITS ---
HPI - Neuro Symptoms/Deficit General Chief Complaint: Stroke Stated Complaint: STROKE SYMPTOMS Source: patient, EMS and old records reviewed Mode of arrival: EMS Limitations: no limitations History of Present Illness HPI Narrative: 83 yo male with PMH of PAD, DM, HTN, hx of aphasia back in 2020 had full workup here including CT head which showed old strokes and CTA which showed stenosis of segments of LORENZA and right [employer]. At that time he was started on aspirin and plavix daily. This AM he was talking to his daughter around 1045 and had about 2 to 3 minutes of expressive aphasia noted by EMS on arrival but resolved en route no other symptoms of headaches, weakness, numbness noted. He is at baseline on arrival. He is compliant with his medications Onset (ago): hour(s) (1045am) Last Observed Normal: 10:45 Timing confirmed by: family member Location: speech History of same: Yes Severity: mild Quality: other (resolved) Relieving factors: time Exacerbating factors: none Context: sudden onset On Anticoagulants: No Associated symptoms: denies other symptoms Treatments Prior to Arrival: Aspirin (took his aspirin and plavix prior to arrival) Related Data Home Medications Medication Instructions Recorded Confirmed losartan 50 mg tablet 50 mg PO DAILY 01/06/20 06/14/22 metoprolol tartrate 25 mg tablet 25 mg PO DAILY 01/06/20 06/14/22 simvastatin 40 mg tablet 40 mg PO BEDTIME 01/06/20 06/14/22 glipizide 5 mg tablet 5 mg PO DAILY 01/25/20 06/14/22 isosorbide mononitrate 30 mg 15 mg PO DAILY 01/25/20 06/14/22 tablet,extended release 24 hr nitroglycerin 0.4 mg sublingual 0.4 mg sublingual Q5M PRN Chest 01/25/20 06/14/22 tablet Pain Previous Rx's Medication Instructions Recorded aluminum-mag hydroxide-simethicone 10 ml PO Q6H PRN indigestion 01/28/20 200 mg-200 mg-20 mg/5 mL oral susp #3,000 mL (Maalox Advanced) omeprazole 10 mg capsule,delayed 10 mg PO DAILY 14 days #14 caps 01/28/20 release aspirin 81 mg tablet,delayed 81 mg PO DAILY #30 tabs 11/08/20 release atorvastatin 40 mg tablet (Lipitor) 40 mg PO BEDTIME #30 tabs 11/08/20 Allergies Allergy/AdvReac Type Severity Reaction Status Date / Time Seasonal Allergies Allergy Nasal Verified 03/02/23 11:59 congestion Review of Systems 2 Review of Systems: Constitutional : No Fever, No Chills, No Fatigue ENT/Mouth : No sore throat, No Rhinorrhea Eyes: No Eye Pain, No Swelling, No Redness Cardiovascular : No Chest Pain, No SOB, No Dyspnea on Exertion Respiratory : No Cough, No Sputum Gastrointestinal : No Nausea, No Vomiting, No Diarrhea, No abdominal Pain Genitourinary : No Dysuria, No Urinary Frequency, No Hematuria, Musculoskeletal : No joint pain, No Myalgias, No Joint Swelling Skin : No Skin Lesions, No rash Neuro : No Weakness, No Numbness, No Dizziness, no Headache, pos aphasia Psych : No Anxiety/Panic, No Depression All other systems reviewed and are negative PMFSH Past Medical History Attestation statement: The following information was validated with the patient. Source: old records reviewed Medical History Anemia Hx of malignant melanoma Peripheral artery disease Sleep apnea Environmental allergies Arthritis History of prostate cancer Angina pectoris CAD (coronary artery disease) Hyperlipidemia Hypertension Diabetes Surgical History H/O heart artery stent (~2004) S/P aortogram with runoff H/O arthroscopy of right knee S/P cardiac cath Hx of colonoscopy Hx of foot surgery Hx of appendectomy Hx of cholecystectomy Hx of tonsillectomy Social History Household Members: Spouse Housing: House Are you a primary inspector health care facilities to a significant other at home: Yes ( AT HOME HAD CVA) Do you presently have visiting nurse or other home services: No Alcohol intake: never Patient Tobacco Use Status: Former Tobacco user Quit Date: 1972 Tobacco use type: Cigarette Smoked in Last 30 Days: No Second Hand Smoke Exposure: No Use of substances other than those prescribed or required for medical reasons: No Advance Directives: Yes Advance Directives Information Provided: No Advance Directives on File: No service: No Physical Exam 2 Vital Signs: Vital Signs: Last Vital Signs Temp 98.2 F 03/02/23 12:06 Pulse 60 03/02/23 12:06 Resp 18 03/02/23 12:06 BP 191/63 H 03/02/23 12:06 Pulse Ox 100 03/02/23 12:06 O2 Del Method Room Air 03/02/23 12:06 BMI result Body Mass Index 31.2 Appearance: Alert. Oriented X3. No acute distress. Eyes: Pupils equal, round and reactive to light. ENT: Pharynx normal. Neck: Normal inspection. Neck supple. CVS: Normal heart rate and rhythm. Pulses normal. Respiratory: No respiratory distress. Breath sounds normal. Abdomen: Soft and nontender. Skin: Skin warm and dry. Normal skin color. Normal skin turgor. Extremities: No lower extremity edema. No calf ttp Neuro: Oriented X 3. No motor deficit. No sensory deficit. Medications Administered Discontinued Medications Generic Name Dose Route Start Last Admin Trade Name Freq PRN Reason Stop Dose Admin Iohexol 100 ml 03/02/23 11:57 03/02/23 11:58 Iohexol 350 Mg/Ml 100 Ml Infus..Btl IV 03/02/23 11:58 70 ml ONCE ONE Administration Medical Decision Making Medical Decision Making [facility] Narrative: 83 yo male with PMH of PAD, DM, HTN, hx of aphasia back in 2020 had full workup here including CT head which showed old strokes and CTA which showed stenosis of segments of LORENZA and right [employer] on aspirin and plavix since that admission who presents with resolved aphasia. He has hx of strokes and intracranial vessle disease. At this time CT head and CTA ordered. Symptoms resolved so not a candidate for tPa. He likely had another TIA. He is on dual antiplatelet agent but may need DOAC given TIA symptoms through aspirin/plavix. Differential Diagnosis Differential Diagnoses: The differential diagnosis associated with the presentation includes TIA, aphasia Admission/Observation Consideration of admission/observation: Escalation of care including admission/observation considered admit for TIA but also possible med changes Consult Healthcare Provider Management of the patient was discussed with: Hospitalist (agrees to admit) Lab Data [facility] Lab Attestation statement: I reviewed the patient's lab results. 03/02/23 11:36 03/02/23 11:36 Labs: Lab Results 03/02/23 03/02/23 03/02/23 Range/Units 11:28 11:36 12:18 WBC 5.9 (4.8-10.8) X10*3/uL RBC 4.39 L (4.60-5.80) X10*6/uL Hgb 12.2 L (14.0-18.0) g/dl Hct 37.2 L (42.0-52.0) % MCV 84.7 (80.0-98.0) fL MCH 27.8 (27.0-33.0) pg MCHC 32.8 (31.0-36.0) g/dl RDW 13.6 (11.0-16.0) % Plt Count 193 (160-400) X10*3/uL MPV 9.5 (9.4-12.4) fL Immature Gran % (Auto) 0.3 (0.0-0.4) % Neut % (Auto) 58.2 (45-73) % Lymph % (Auto) 20.5 (20-40) % [place] % (Auto) 11.8 H (2-11) % Eos % (Auto) 8.7 H (0-4) % Baso % (Auto) 0.5 (0-2) % Lymph # (Auto) 1.2 (1.2-4.9) X10*3/uL [place] # (Auto) 0.7 (0.1-1.2) X10*3/uL Eos # (Auto) 0.5 H (0.0-0.4) X10*3/uL Baso # (Auto) 0.0 (0.0-0.2) X10*3/uL Abs Immat Gran (auto) 0.02 (0.00-0.03) X10*3/uL Absolute Neuts (auto) 3.4 (2.0-8.3) x10*3/uL Absolute Nucleated RBC 0.000 (0.0-0.012) X10*3/uL Nucleated RBC % (auto) 0.0 (0.0-0.2) /100WBC PT 11.1 (11.1-13.3) SEC Whole Blood PT 14.1 H (11.1-13.5) sec INR 0.9 (0.9-1.1) Whole Blood INR 1.0 (0.9-1.1) APTT 31.2 (26.0-36.4) SEC Sodium 137 (135-145) mmol/L Potassium 5.1 (3.3-5.1) mmol/L Chloride 105 (96-108) mmol/L Carbon Dioxide 23 (22-29) mmol/L Anion Gap 14 (12-20) BUN 17 H (9-16) mg/dL Creatinine 1.10 (0.5-1.4) mg/dL Estim Creat Clear Calc 61.7 Estimated GFR > 60 POC Glucose 245 H (60-115) mg/dL Random Glucose 264 H (60-115) mg/dL Calcium 9.3 (8.4-10.2) mg/dL Magnesium 2.0 (1.6-2.6) mg/dL Total Bilirubin 0.5 (0.0-1.0) mg/dL Direct Bilirubin 0.1 (0.0-0.5) mg/dL AST 38 H (5-37) U/L ALT 25 (0-40) U/L Alkaline Phosphatase 98 (39-117) U/L Troponin I High Sens 11.1 (<3.5-35.0) ng/L B-Natriuretic Peptide 61 (<100) pg/mL Total Protein 7.4 (6.5-8.0) g/dL Albumin 3.9 (3.5-5.0) g/dL COVID-19 (EDGAR) Negative (Negative) COVID-19 Clin Com See Note Independent Interpretation I performed an independent interpretation of an: EKG and CT Scan Interpretation: Rate: 58 Rhythm: NSR 1st degree AVB [place]: left Normal P waves. 1st degree AVB Normal QRS complex. ST T wave : nonspecific ST T wave changes, no REX qTC: normal prior studies: no acute ischemia The study has been interpreted contemporaneously by me. . Radiology Impression Discussion of test interpretation with radiology: I discussed test interpretation with the radiologist and I have reviewed the radiologist's reading. Radiologist Impression: negative for stroke Independent Historian Clinical information obtained from an independent historian. History obtained from or confirmed by: EMS External Record Review External record reviewed: Inpatient record NIH Stroke Scale Internal: Initial- Upon Arrival Level of Consciousness: Alert Level of Consciousness Questions: Answers both questions correctly Level of Consciousness Commands: Performs both tasks correctly Best Gaze: Normal Visual: No visual loss Facial Palsy: Normal Motor Arm (Right): No drift Motor Arm (Left): No drift Motor Leg (Right): No drift Motor Leg (Left): No drift Limb Ataxia: Absent Sensory: Normal Best Language: No aphasia Dysarthia: Normal Extinction and Inattention: No abnormality Score: 0 Critical Care Time Critical Care Time Critical Care Time: Yes Total Critical Care Time: 35 Attestation: discussion with EMS, stroke alert workup and consult with radiology, family discussion, admission I attest to this time spent taking care of the patient Discharge Plan Discharge Clinical Impression: Brain TIA Patient Disposition: Admitted As Inpatient
[2023-03-02 11:32] LABS: Glucose, Whole Blood 245 mg/dL (60-115)
[2023-03-02 11:41] LABS: MANUAL DIFF FLAG NO
[2023-03-02 11:42] LABS: Prothrombin Time Whole Bld POC 14.1 sec (11.1-13.5)
[2023-03-02 11:44] LABS: Basophils Percent Auto 0.5 % (0-2); Eosinophils Absolute Auto 0.5 X10*3/uL (0.0-0.4); Eosinophils Percent Auto 8.7 % (0-4); Hematocrit 37.2 % (42.0-52.0); Hemoglobin 12.2 g/dl (14.0-18.0); Imm Gran Abs Auto 0.02 X10*3/uL (0.00-0.03); Imm Gran Pct Auto 0.3 % (0.0-0.4); Lymphocytes Absolute Auto 1.2 X10*3/uL (1.2-4.9); Lymphocytes Percent Auto 20.5 % (20-40); Mean Corpuscular HGB Conc 32.8 g/dl (31.0-36.0); Mean Corpuscular Hemoglobin 27.8 pg (27.0-33.0); Mean Corpuscular Volume 84.7 fL (80.0-98.0); Mean Platelet Volume 9.5 fL (9.4-12.4); Monocytes Absolute Auto 0.7 X10*3/uL (0.1-1.2); Monocytes Percent Auto 11.8 % (2-11); Neutrophils Absolute Auto 3.4 x10*3/uL (2.0-8.3); Neutrophils Percent Auto 58.2 % (45-73); Platelet Count 193 X10*3/uL (160-400); Red Blood Count 4.39 X10*6/uL (4.60-5.80); Red Cell Distribution Width 13.6 % (11.0-16.0); White Blood Count 5.9 X10*3/uL (4.8-10.8)
[2023-03-02 11:53] LABS: INTERNATIONAL NORM RATIO 0.9 (0.9-1.1); Prothrombin Time 11.1 SEC (11.1-13.3)
[2023-03-02 11:55] LABS: Partial Thromboplastin Time 31.2 SEC (26.0-36.4)
[2023-03-02] MEDS: iohexoL 350 MG/ML 100 ML INFUS..BTL IV (11:58)
[2023-03-02 12:04] LABS: Alanine Aminotransferase 25 U/L (0-40); Albumin Level 3.9 g/dL (3.5-5.0); Alkaline Phosphatase 98 U/L (39-117); Anion Gap 14 (12-20); Aspartate Amino Transferase 38 U/L (5-37); Bilirubin Direct 0.1 mg/dL (0.0-0.5); Bilirubin Total 0.5 mg/dL (0.0-1.0); Blood Urea Nitrogen 17 mg/dL (9-16); Calcium 9.3 mg/dL (8.4-10.2); Carbon Dioxide 23 mmol/L (22-29); Chloride 105 mmol/L (96-108); Creatinine Clr Calc Pharmacy 61.7; Estimated Glomerular Filt Rate > 60; Glucose Random 264 mg/dL (60-115); Potassium 5.1 mmol/L (3.3-5.1); Sodium 137 mmol/L (135-145); Total Protein 7.4 g/dL (6.5-8.0)
[2023-03-02 12:08] LABS: B Type Natriuretic Peptide 61 pg/mL (<100)
[2023-03-02 12:11] LABS: Troponin-I High Sensitivity 11.1 ng/L (<3.5-35.0)
[2023-03-02 12:41] LABS: COVID-19 Test Negative (Negative); IDNOW Serial# BCCEAD1C
--- NOTE | 2023-03-02 14:17 | P.HPHOSP_ITS ---
History of Present Illness Date of Service: 03/02/23 Attending physician on admission: Babar Bullock Chief Complaint: dysarthria 83 year old male with PAD, MONIQUE recently noncompliant with cpap, hx prostate cancer s/p radiation therapy 10+years ago, CAD w/ h/o NSTEMI s/p stenting 10/28 on DAPT, HLD, HTN, NIDDM presented to the ED earlier today via EMS with his granddaughter, Lesvia, who is present at bedside and assists with history, for evaluation of an episode of dysarthria this morning. Pt reports this morning around 10am was looking out the window bird watching and recalls his daughter and talking to him. However, on their report the patient was mumbling his words. This lasted for several minutes and has fully resolved. There was no reported facial droop, visual changes, dysphagia, headache, lightheadedness, focal weakness, paresthesias, gait imbalance, or confusion. He has had similar episode in 2020, diagnosed at TIA. On arrival, pt hypertensive to 191/63, vitals otherwise normal. On admission, pt still hypertensive to 195/76. No headache or chest pain or noted focal neuro deficits. Hematology studies unremarkable. Renal function normal, electrolytes normal. Glucose 245. Trop 11.1, BNP 61. Negative for COVID-19. EKG showed sinus bradycardia, rate 58, no acute ischemic changes. Head CT negative for acute intracranial abnormality. There is diffuse volume loss and chronic microvascular changes as well as lacunar infarcts. CTA head/neck negative for any LVO or hemodynamically significant stenosis. There are atheromatous calcifications of the carotid bifurcations bilaterally. Intracranially, there is irregular caliber of the anterior and posterior circulations but no aneurysms or vascular malformations. Pt did receive asa 81mg and plavix 75mg this morning. He is currently asymptomatic, tpa not indicated. Review of Systems 2 Review of Systems: General: No fevers, malaise, unintentional weight loss HEENT: No blurred vision, diplopia Cardiovascular: No chest pain, palpitations, or leg edema Respiratory: No shortness of breath, wheezing, cough GI: No abdominal pain, nausea, vomiting, diarrhea : No dysuria, hematuria MSK: No myalgia, back pain Neuro: No headaches, focal weakness, paresthesias, facial droop. +dysarthria Skin: No rashes or lesions PMFSH Medical History Anemia Hx of malignant melanoma Peripheral artery disease Sleep apnea Environmental allergies Arthritis History of prostate cancer Angina pectoris CAD (coronary artery disease) Hyperlipidemia Hypertension Diabetes Surgical History H/O heart artery stent (~2004) S/P aortogram with runoff H/O arthroscopy of right knee S/P cardiac cath Hx of colonoscopy Hx of foot surgery Hx of appendectomy Hx of cholecystectomy Hx of tonsillectomy Household Members: Spouse Housing: House Are you a primary multi care technician to a significant other at home: Yes ( AT HOME HAD CVA) Do you presently have visiting nurse or other home services: No Alcohol intake: never Patient Tobacco Use Status: Former Tobacco user Quit Date: 1972 Tobacco use type: Cigarette Smoked in Last 30 Days: No Second Hand Smoke Exposure: No Use of substances other than those prescribed or required for medical reasons: No Advance Directives: Yes Advance Directives Information Provided: No Advance Directives on File: No service: No Meds Allergies Allergy/AdvReac Type Severity Reaction Status Date / Time Seasonal Allergies Allergy Nasal Verified 03/02/23 11:59 congestion Home Medications Medication Instructions Recorded Confirmed Last Taken Type glipizide 5 mg tablet 10 mg PO BIDWM 01/25/20 03/02/23 06/13/22 History nitroglycerin 0.4 mg sublingual 0.4 mg sublingual Q5M PRN Chest 01/25/20 03/02/23 Unknown History tablet Pain carvedilol 6.25 mg tablet 6.25 mg PO BID 03/02/23 03/02/23 Unknown History clopidogrel 75 mg tablet 75 mg PO DAILY 03/02/23 03/02/23 Unknown History codeine 10 mg-guaifenesin 100 mg/5 5 ml PO QID PRN Cough 03/02/23 03/02/23 Unknown History mL oral liquid losartan 25 mg tablet 25 mg PO DAILY 03/02/23 03/02/23 Unknown History multivitamin 1 tab PO DAILY 03/02/23 03/02/23 Unknown History sucralfate 1 gram tablet 1 g PO BID@999,199903/02/23 03/02/23 Unknown History Physical Exam 2 Vital Signs and Narrative: Vital Signs: Last Vital Signs Temp 98.2 F 03/02/23 12:06 Pulse 60 03/02/23 13:51 Resp 16 03/02/23 13:51 BP 203/70 H 03/02/23 13:51 Pulse Ox 96 03/02/23 13:51 O2 Del Method Room Air 03/02/23 13:51 BMI result Body Mass Index 31.2 Constitutional - Awake and Alert, No apparent distress Eyes - PERRLA, EOMI Cardiovascular - S1S2, RRR, 1+ edema RLE Respiratory - Normal lung expansion, Normal respiratory effort, No respiratory distress, CTA bilaterally Gastrointestinal - NT / ND; +BS; No rebound or guarding Extremities - no calf tenderness bilaterally, no swelling Skin - Warm/Dry Neurological - Alert & oriented x3, CN II-XII in tact, 5/5 strength BUE and BLE, 2+ patellar reflexes, downgoing babinski, finger to nose testing normal, negative pronator drift Psychological - Appropriate affect Results Labs 03/02/23 11:36 03/02/23 11:36 Labs: Laboratory Results - last 24 hr 03/02/23 03/02/23 03/02/23 11:28 11:36 12:18 MCV 84.7 MCH 27.8 MCHC 32.8 RDW 13.6 Plt Count 193 MPV 9.5 Immature Gran % (Auto) 0.3 Neut % (Auto) 58.2 Lymph % (Auto) 20.5 [place] % (Auto) 11.8 H Eos % (Auto) 8.7 H Baso % (Auto) 0.5 Lymph # (Auto) 1.2 [place] # (Auto) 0.7 Eos # (Auto) 0.5 H Baso # (Auto) 0.0 Abs Immat Gran (auto) 0.02 Absolute Neuts (auto) 3.4 Absolute Nucleated RBC 0.000 Nucleated RBC % (auto) 0.0 PT 11.1 Whole Blood PT 14.1 H INR 0.9 Whole Blood INR 1.0 APTT 31.2 Anion Gap 14 Estim Creat Clear Calc 61.7 Estimated GFR > 60 POC Glucose 245 H Random Glucose 264 H Calcium 9.3 Magnesium 2.0 Total Bilirubin 0.5 Direct Bilirubin 0.1 AST 38 H ALT 25 Alkaline Phosphatase 98 B-Natriuretic Peptide 61 Total Protein 7.4 Albumin 3.9 COVID-19 ([facility]) Negative COVID-19 Clin Com See Note Imaging Radiologist's Impressions: Impressions Head/Neck CTA 03/02/23 11:21 IMPRESSION: CT Head and Neck: 1. There are no acute bleeds or territorial infarcts. There are no masses or areas of abnormal enhancement. 2. There is diffuse volume loss and there are chronic microvascular ischemic changes and lacunar infarcts. 3. There are multilevel spondylitic and facet arthropathic changes in the cervical spine. 4. There are fluid levels in the maxillary sinuses bilaterally. There are sequelae of prior surgery in the left parotid region. CTA Head and Neck: 1. There are atheromatous calcifications at the carotid bifurcations bilaterally, without significant stenosis. 2. Intracranially the study redemonstrates irregular caliber of the anterior and posterior circulations as described above. There are no aneurysms or vascular malformations. Head CT 03/02/23 11:31 IMPRESSION: No acute intracranial process. This critical result was discussed with Dr. Julia Wells at at 1146 and on 03/02/2023. It was ascertained that the content and urgency of the report was understood at the time of direct communication. Assessment and Plan (1) Brain TIA: Status: Acute Plan 83 year old male with PAD, MONIQUE recently noncompliant with cpap, hx prostate cancer s/p radiation therapy 10+years ago, CAD w/ h/o NSTEMI s/p stenting 10/28 on DAPT, HLD, HTN, NIDDM to be observed for acute TIA. #Acute TIA -reported episode of dysarthria witnessed by family earlier today lasting minutes. Fully resolved, no indication for tpa -Took asa 81mg and plavix 75mg this am. Hold on additional antiplatelet therapy at this time -Currently on DAPT for CAD with recent cardiac cath in 10/28 with no intervention, but patient developed dysarthia postprocedure. MRI at that time revealed punctate acute infarct in parietal lobe, started on DAPT -Has failed therapy with DAPT. Likely needs anticoagulation. Continue DAPT at this time pending neuro eval -Neuro consult -MRI at this time as it will likely not planning management it specialist. Defer to neuro -ECHO performed 10/28. Defer to neuro -Passed bedside swallow eval -Stroke edu -Lipid panel pending, continue statin -Monitor on telemetry #Hypertension -pt hypertensive to 195/76 on admission. Continue monitoring. If remains significantly hypertensive, consider lowering no more than 15% in 24 hours -Continue home meds -monitor bp #NIDDM type 2 diabetes with hyperglycemia -last hgb a1c 7.8% -poc glucose -diabetic diet -humalog on ss -hold glipizide #MONIQUE -resume cpap use #PAD -continue DAPT for now #CAD/HLD -DAPT as above due to stroke (not cardiac intervention), may need transition to anticoagulant due to recurrent strokes -continue bb, statin DVT prophylaxis- heparin Full code Quality Stroke Does the patient have a stroke diagnosis?: Yes Reason for No Anti-thrombotic by Day Two: Drug treatment not indicated VTE Prior VTE?: No VTE Risk Level:: Medical - moderate - high VTE Device Contraindication: Treatment Not Indicated VTE Drug Contraindication: N/A - Med Ordered
--- NOTE | 2023-03-02 14:26 | PHA.MEDREC ---
Pharmacy Consult ? Medication Reconciliation Pharmacy has completed the medication reconciliation. spoke with family member and patient. They had a medication list from home. Verified with Josse Geller in [place].
[2023-03-02 15:04] LABS: Cholesterol 144 mg/dL (<200); HDL Cholesterol 42 mg/dL (>40); LDL Cholesterol Calculated 62 mg/dL (<100); Triglycerides 203 mg/dL (<150)
--- NOTE | 2023-03-02 16:27 | PC.NURSE ---
Pt auto BP 212/85. Provider notified of this value and requested manual BP. Manual Bp's done on bilateral arms. Right arm: 180/64, Left arm: 190/62. Provider verbalizes she would like nursing staff to continue to monitor his BP and give scheduled coreg at 2100. Information relayed to son who is at bedside and concerned for pt BP. Son requesting to speak to provider at this time; provider aware.
--- NOTE | 2023-03-02 16:45 | PC.NURSE ---
Provider at bedside.
--- NOTE | 2023-03-02 17:28 | PC.NURSE ---
nurse to nurse given to Bernadine DAY
[2023-03-02 17:32] LABS: Glucose, Whole Blood 98 mg/dL (60-115)
[2023-03-02] MEDS: Heparin Sodium,Porcine 5,000 UNIT/ML VIAL 5000 UNIT SUBCUT (18:27)
[2023-03-02] MEDS: 0.9 % Sodium Chloride Flush 3 ML SYRINGE IVFLUSH ×2 (18:30→20:35)
[2023-03-02] MEDS: carvediloL 6.25 MG TABLET PO (19:33)
[2023-03-02] MEDS: Atorvastatin Calcium 40 MG TABLET PO (19:33)
[2023-03-02] MEDS: guaiFEN/Codeine SF 200/20/10ML 10 ML LIQUID 5 ML PO (19:33)
[2023-03-02] MEDS: Sucralfate 1 GM TABLET PO (19:33)
[2023-03-02 20:20] LABS: Glucose, Whole Blood 173 mg/dL (60-115)
[2023-03-02] MEDS: Insulin Lispro 100 UNIT/ML 3 ML VIAL SUBCUT (20:33)
[2023-03-03 03:48] VITALS: BP 180/78; PULSE 59; RESP 20; TEMP 36.1; O2SAT 97
[2023-03-03] MEDS: Heparin Sodium,Porcine 5,000 UNIT/ML VIAL 5000 UNIT SUBCUT (04:31)
[2023-03-03] MEDS: hydrALAZINE HCl 20 MG/ML VIAL 5 MG IVPUSH (04:31)
[2023-03-03 07:19] VITALS: BP 190/80; PULSE 58; RESP 18; TEMP 36.6; O2SAT 97
[2023-03-03 07:28] LABS: MANUAL DIFF FLAG NO
[2023-03-03 07:41] LABS: Basophils Percent Auto 0.4 % (0-2); Eosinophils Absolute Auto 0.5 X10*3/uL (0.0-0.4); Eosinophils Percent Auto 6.9 % (0-4); Hemoglobin 12.5 g/dl (14.0-18.0); Imm Gran Abs Auto 0.04 X10*3/uL (0.00-0.03); Imm Gran Pct Auto 0.6 % (0.0-0.4); Lymphocytes Absolute Auto 1.4 X10*3/uL (1.2-4.9); Lymphocytes Percent Auto 19.5 % (20-40); Mean Corpuscular HGB Conc 32.9 g/dl (31.0-36.0); Mean Corpuscular Hemoglobin 28.3 pg (27.0-33.0); Mean Platelet Volume 10.2 fL (9.4-12.4); Monocytes Absolute Auto 0.8 X10*3/uL (0.1-1.2); Neutrophils Absolute Auto 4.2 x10*3/uL (2.0-8.3); Neutrophils Percent Auto 60.6 % (45-73); Platelet Count 198 X10*3/uL (160-400); Red Blood Count 4.42 X10*6/uL (4.60-5.80); Red Cell Distribution Width 13.7 % (11.0-16.0)
[2023-03-03 08:02] LABS: Anion Gap 12 (12-20); Blood Urea Nitrogen 15 mg/dL (9-16); Calcium 9.1 mg/dL (8.4-10.2); Carbon Dioxide 29 mmol/L (22-29); Chloride 104 mmol/L (96-108); Creatinine Clr Calc Pharmacy 63.4; Estimated Glomerular Filt Rate > 60; Glucose Random 155 mg/dL (60-115); Sodium 141 mmol/L (135-145)
[2023-03-03 08:15] LABS: Glucose, Whole Blood 135 mg/dL (60-115)
[2023-03-03] MEDS: Aspirin Enteric Coated 81 MG TABLET.DR PO (08:25)
[2023-03-03] MEDS: carvediloL 6.25 MG TABLET PO (08:26)
[2023-03-03] MEDS: Multivitamin TABLET 1 TAB PO (08:26)
[2023-03-03] MEDS: Losartan Potassium 25 MG TABLET PO (08:27)
[2023-03-03] MEDS: Clopidogrel Bisulfate 75 MG TABLET PO (08:27)
[2023-03-03] MEDS: 0.9 % Sodium Chloride Flush 3 ML SYRINGE IVFLUSH (08:29)
--- NOTE | 2023-03-03 09:30 | P.CNNE_ITS ---
History of Present Illness Data of Consult Service Date: 03/03/23 Primary Care Provider: Gilbert Francis MD [facility] Reason for consult: Difficulty speaking 83 year old male with PAD, MONIQUE recently noncompliant with cpap, hx prostate cancer s/p radiation therapy 10+years ago, CAD w/ h/o NSTEMI s/p stenting 10/28 on DAPT, HLD, HTN, and diabetes who came to hospital after an episode of difficulty speaking. He said that he could understand people but could not say what he wanted to say. He said that his speech was fine. There was no associated headache numbness weakness or confusion or visual symptom. It lasted for few seconds or maybe a minute or to. He said that he had 1 such episode in the past. Review of Systems 2 Review of Systems: No recent trauma headache or cold or flu-like illness PMFSH Past Medical History Medical History Anemia Hx of malignant melanoma Peripheral artery disease Sleep apnea Environmental allergies Arthritis History of prostate cancer Angina pectoris CAD (coronary artery disease) Hyperlipidemia Hypertension Diabetes Surgical History Surgical History H/O heart artery stent (~2004) S/P aortogram with runoff H/O arthroscopy of right knee S/P cardiac cath Hx of colonoscopy Hx of foot surgery Hx of appendectomy Hx of cholecystectomy Hx of tonsillectomy Social History Household Members: Spouse Housing: House Are you a primary point of care technician to a significant other at home: Yes ( AT HOME HAD CVA) Do you presently have visiting nurse or other home services: No Alcohol intake: never Patient Tobacco Use Status: Former Tobacco user Quit Date: 1972 Tobacco use type: Cigarette Second Hand Smoke Exposure: No Advance Directives Date on File: 03/02/23 service: No Meds Allergies Allergy/AdvReac Type Severity Reaction Status Date / Time Seasonal Allergies Allergy Nasal Verified 03/02/23 11:59 congestion Active Medications: Current Medications Acetaminophen (Acetaminophen 325 Mg Tablet) 650 mg PO Q6H PRN PRN Reason: Pain, Mild (Pain Scale 1-3) Aspirin (Aspirin Enteric Coated 81 Mg Tablet.) 81 mg PO DAILY BC Last Admin: 03/03/23 08:25 Dose: 81 mg Atorvastatin Calcium (Atorvastatin Calcium 40 Mg Tablet) 40 mg PO BEDTIME [facility] Last Admin: 03/02/23 19:33 Dose: 40 mg Carvedilol (Carvedilol 6.25 Mg Tablet) 6.25 mg PO BID [facility]; Protocol Last Admin: 03/03/23 08:26 Dose: 6.25 mg Clopidogrel Bisulfate (Clopidogrel Bisulfate 75 Mg Tablet) 75 mg PO DAILY [facility] Last Admin: 03/03/23 08:27 Dose: 75 mg Dextrose (Dextrose 50 % 25 Gm/50 Ml Syringe) 25 gm IVPUSH Q15M PRN; Protocol PRN Reason: per Hypoglycemia Standing Ord. Docusate Sodium (Docusate Sodium 100 Mg Capsule) 100 mg PO DAILY PRN PRN Reason: Constipation Glucose (Glucose Gel 15 Gm Gel..Gram.) 15 gm PO Q15M PRN; Protocol PRN Reason: per Hypoglycemia Standing Ord. Guaifenesin/Codeine Phosphate (Guaifen/Codeine Sf 200/20/10ml 10 Ml Liquid) 5 ml PO QID PRN PRN Reason: Cough Last Admin: 03/02/23 19:33 Dose: 5 ml Heparin Sodium (Porcine) (Heparin Sodium,Porcine 5,000 Unit/Ml Vial) 5,000 unit SUBCUT Q12H [facility] Last Admin: 03/03/23 04:31 Dose: 5,000 unit Insulin Human Lispro (Insulin Lispro 100 Unit/Ml 3 Ml Vial) 0 unit SUBCUT QIDACHS [facility]; Protocol Last Admin: 03/03/23 08:16 Dose: Not Given Losartan Potassium (Losartan Potassium 25 Mg Tablet) 25 mg PO DAILY [facility]; Protocol Last Admin: 03/03/23 08:27 Dose: 25 mg Melatonin (Melatonin 3 Mg Tablet) 3 mg PO BEDTIME PRN PRN Reason: Insomnia Multivitamins/Vitamin C (Multivitamin Tablet) 1 tab PO DAILY [facility] Last Admin: 03/03/23 08:26 Dose: 1 tab Nitroglycerin (Nitroglycerin 0.4 Mg Tab.Subl) 0.4 mg SUBLINGUAL Q5M PRN PRN Reason: Chest Pain Ondansetron HCl (Ondansetron Hcl 4 Mg/2 Ml Vial) 4 mg IVPUSH Q8H PRN PRN Reason: Nausea and Vomiting Sodium Chloride (0.9 % Sodium Chloride Flush 3 Ml Syringe) 3 ml IVFLUSH QSHIFT [facility] Last Admin: 03/03/23 08:29 Dose: 3 ml Sucralfate (Sucralfate 1 Gm Tablet) 1 gm PO BID@ [facility] Last Admin: 03/02/23 19:33 Dose: 1 gm Home Medications Medication Instructions Recorded Confirmed Last Taken Type glipizide 5 mg tablet 10 mg PO BIDWM 01/25/20 03/02/23 06/13/22 History nitroglycerin 0.4 mg sublingual 0.4 mg sublingual Q5M PRN Chest 01/25/20 03/02/23 Unknown History tablet Pain carvedilol 6.25 mg tablet 6.25 mg PO BID 03/02/23 03/02/23 Unknown History clopidogrel 75 mg tablet 75 mg PO DAILY 03/02/23 03/02/23 Unknown History codeine 10 mg-guaifenesin 100 mg/5 5 ml PO QID PRN Cough 03/02/23 03/02/23 Unknown History mL oral liquid losartan 25 mg tablet 25 mg PO DAILY 03/02/23 03/02/23 Unknown History multivitamin 1 tab PO DAILY 03/02/23 03/02/23 Unknown History sucralfate 1 gram tablet 1 g PO BID@03/02/23 03/02/23 Unknown History Physical Exam 2 Vital Signs: Vital Signs: Last Vital Signs Temp 97.8 F 03/03/23 07:19 Pulse 58 03/03/23 07:19 Resp 18 03/03/23 07:19 BP 190/80 H 03/03/23 07:19 Pulse Ox 97 03/03/23 07:19 O2 Del Method Room Air 03/03/23 07:19 BMI result Body Mass Index 31.2 Neuro: Other: He is alert and awake with normal spontaneity of speech fluency comprehension and affect. Speech is slightly dysphasic though he stated that this was his normal speech. Face was symmetrical. Tongue was midline. There was no pronator drift. Visual bianchi are full. Oiuvbe-sn-eudd testing did not reveal any significant abnormality. Deep tendon reflexes were trace to absent with flexor plantars. Results Labs 03/03/23 06:36 03/03/23 06:36 Labs: Short CBC 03/02/23 03/03/23 Range/Units 11:36 06:36 WBC 5.9 7.0 (4.8-10.8) X10*3/uL Hgb 12.2 L 12.5 L (14.0-18.0) g/dl Hct 37.2 L 38.0 L (42.0-52.0) % Plt Count 193 198 (160-400) X10*3/uL BMP 03/02/23 03/03/23 11:36 06:36 Sodium 137 141 Potassium 5.1 4.0 D Chloride 105 104 Carbon Dioxide 23 29 BUN 17 H 15 Creatinine 1.10 1.07 Calcium 9.3 9.1 Liver Function 03/02/23 Range/Units 11:36 Total Bilirubin 0.5 (0.0-1.0) mg/dL Direct Bilirubin 0.1 (0.0-0.5) mg/dL AST 38 H (5-37) U/L ALT 25 (0-40) U/L Alkaline Phosphatase 98 (39-117) U/L Albumin 3.9 (3.5-5.0) g/dL CTA of brain and CTA were reviewed. No obvious acute pathology was noted. Previously his brain MRI had revealed mild microvascular disease but also a distinct left frontal area moderate side ischemic lesion. CTA as reveal some atherosclerotic narrowing of anterior posterior circulation. Assessment and Plan (1) Brain TIA: Status: Acute 83 years old man with intracranial atherosclerotic disease and associated narrowing though not of them significant and of to warrant any intervention, came to hospital with a brief episode suggestive of motor aphasia. There was no obvious acute lesion on CT scan. Previously his brain MRI has revealed a moderate side ischemic lesion in left frontal area suggesting that there was probably a narrowing in intracerebral vasculature resulting in that lesion and this TIA. Recommendation is to maximize anti-platelet therapy with aspirin and clopidogrel at least for 2-3 months, control blood pressure, and continue statin. Procedures Date of Service Date of Service: 03/03/23
[2023-03-03] MEDS: Sucralfate 1 GM TABLET PO (10:05)
[2023-03-03 11:12] VITALS: BP 193/85; PULSE 65; RESP 18; TEMP 36.4; O2SAT 97
[2023-03-03 11:47] LABS: Glucose, Whole Blood 127 mg/dL (60-115)
[2023-03-03] MEDS: guaiFEN/Codeine SF 200/20/10ML 10 ML LIQUID 5 ML PO (12:58)
--- NOTE | 2023-03-03 14:26 | MHC.CM.PN ---
Interview conducted w/Pt's daughter (primary contact listed on file): Pt lives w/. No prior services or ADs, still drives. HCP requested, PCP accurate. Independent. D/C plan is return home w/family via family. CM to follow.
--- NOTE | 2023-03-03 14:27 | P.DS_ITS ---
DS: Providers Provider Date of Service: 03/03/23 Date of admission: 03/02/23 14:45 Date of discharge: 03/03/23 Primary care physician: Gilbert Francis MD Consults: 03/02/23 14:09 Consult to Neurology Routine Consulting Provider: Carly Ibarra Reason for consultation: tia DS: Diagnosis Discharge Diagnosis (1) Brain TIA: Status: Acute DS: Summary Hospital Course Hospital Course: 83 year old male with PAD, MONIQUE recently noncompliant with cpap, hx prostate cancer s/p radiation therapy 10+years ago, CAD w/ h/o NSTEMI s/p stenting 10/28 on DAPT, HLD, HTN, NIDDM presented to the ED earlier today via EMS with his granddaughter, Lesvia, who is present at bedside and assists with history, for evaluation of an episode of dysarthria this morning. Pt reports this morning a round 10am was looking out the window bird watching and recalls his daughter and talking to him. However, on their report the patient was mumbling his words. This lasted for several minutes and has fully resolved. There was no reported facial droop, visual changes, dysphagia, headache, lightheadedness, focal weakness, paresthesias, gait imbalance, or confusion. He has had similar episode in 2020, diagnosed at TIA. On arrival, pt hypertensive to 191/63, vitals otherwise normal. On admission, pt still hypertensive to 195/76. No headache or chest pain or noted focal neuro deficits. Hematology studies unremarkable. Renal function normal, electrolytes normal. Glucose 245. Trop 11.1, BNP 61. Negative for COVID-19. EKG showed sinus bradycardia, rate 58, no acute ischemic changes. Head CT negative for acute intracranial abnormality. There is diffuse volume loss and chronic microvascular changes as well as lacunar infarcts. CTA head/neck negative for any LVO or hemodynamically significant stenosis. There are atheromatous calcifications of the carotid bifurcations bilaterally. Intracranially, there is irregular caliber of the anterior and posterior circulations but no aneurysms or vascular malformations. Pt did receive asa 81mg and plavix 75mg this morning. He is currently asymptomatic, tpa not indicated. Hospital Course Admitted to telemetry where monitor failed to demonstrate any abnormalities. He was maintained on Plavix and aspirin seen in consultation by Neurology. When seen by Neurology, exam nonfocal. Data review by neurologist and recommendation was to continue Plavix and aspirin at current doses. At this point in time he is anxious for discharge believe he is medically acceptable for same. He will follow up with his PCP and subsequently Neurology as outpatient Time Attestation Discharge coordination time: Greater than 30 minutes Quality: Safe Use of Opioids Does Pt have an Active Cancer Diagnosis on the Problem List?: No Quality: Stroke Does the patient have a stroke diagnosis?: No Physical Exam Vital Signs: Vital Signs: Last Vital Signs Temp 97.6 F 03/03/23 11:12 Pulse 65 03/03/23 11:12 Resp 18 03/03/23 11:12 BP 193/85 H 03/03/23 11:12 Pulse Ox 97 03/03/23 11:12 O2 Del Method Room Air 03/03/23 11:12 BMI result Body Mass Index 31.2 Const: Other: Awake alert no acute distress Resp: Other: Clear to auscultation bilaterally no rales rhonchi wheezes Cardio: Other: No S4; positive S1-S2; no S3 murmurs rubs gallops GI: Other: Soft nontender nondistended normoactive bowel sounds Neuro: Other: Cranial nerves 2-12 grossly intact as tested. Motor is 5/5 all extremities. Sensation is intact. Cognition appropriate. Gait stable Extrem: Other: No edema bilaterally DS: Data Data Completed and Pending Completed studies during hospitalization [Text1]: Procedures Extirpation of Matter from Right External Iliac Artery, Open Approach (01/25/20) Extirpation of Matter from Right Femoral Artery, Open Approach (01/25/20) Supplement Right Femoral Artery with Synthetic Substitute, Open Approach (01/25/20) Labs on day of discharge: Laboratory Results - last 24 hr 03/02/23 03/02/23 03/02/23 11:36 17:28 20:11 WBC RBC Hgb Hct MCV MCH MCHC RDW Plt Count MPV Immature Gran % (Auto) Neut % (Auto) Lymph % (Auto) [place] % (Auto) Eos % (Auto) Baso % (Auto) Lymph # (Auto) [place] # (Auto) Eos # (Auto) Baso # (Auto) Abs Immat Gran (auto) Absolute Neuts (auto) Absolute Nucleated RBC Nucleated RBC % (auto) Sodium Potassium Chloride Carbon Dioxide Anion Gap BUN Creatinine Estim Creat Clear Calc Estimated GFR POC Glucose 98 173 H Random Glucose Calcium Triglycerides 203 H Cholesterol 144 LDL Cholesterol, Calc 62 HDL Cholesterol 42 03/03/23 03/03/23 03/03/23 06:36 07:24 11:21 WBC 7.0 RBC 4.42 L Hgb 12.5 L Hct 38.0 L MCV 86.0 MCH 28.3 MCHC 32.9 RDW 13.7 Plt Count 198 MPV 10.2 Immature Gran % (Auto) 0.6 H Neut % (Auto) 60.6 Lymph % (Auto) 19.5 L [place] % (Auto) 12.0 H Eos % (Auto) 6.9 H Baso % (Auto) 0.4 Lymph # (Auto) 1.4 [place] # (Auto) 0.8 Eos # (Auto) 0.5 H Baso # (Auto) 0.0 Abs Immat Gran (auto) 0.04 H Absolute Neuts (auto) 4.2 Absolute Nucleated RBC 0.000 Nucleated RBC % (auto) 0.0 Sodium 141 Potassium 4.0 D Chloride 104 Carbon Dioxide 29 Anion Gap 12 BUN 15 Creatinine 1.07 Estim Creat Clear Calc 63.4 Estimated GFR > 60 POC Glucose 135 H 127 H Random Glucose 155 H Calcium 9.1 Triglycerides Cholesterol LDL Cholesterol, Calc HDL Cholesterol Discharge Plan Discharge Anticipated Discharge Date/Time: 03/03/23 14:25 Patient Disposition: Home, Self-Care Discharge Diagnosis: TIA Referrals: Gilbert Francis MD [Primary Care Provider] - 1 Week Discharge Medications: Continued nitroglycerin 0.4 mg Tablet, Sublingual 0.4 mg SUBLINGUAL Q5M PRN (Reason: Chest Pain) glipizide 5 mg Tablet 10 mg PO BIDWM atorvastatin [Lipitor] 40 mg tablet 40 mg PO BEDTIME Qty: 30 0RF aspirin 81 mg Tablet,Delayed Release (Dr/Ec) 81 mg PO DAILY Qty: 30 0RF multivitamin Tablet 1 tab PO DAILY carvedilol 6.25 mg Tablet 6.25 mg PO BID Rx Instructions: must administer with a meal/food sucralfate 1 gram Tablet 1 g PO BID@1000,2000 clopidogrel 75 mg Tablet 75 mg PO DAILY losartan 25 mg Tablet 25 mg PO DAILY codeine-guaifenesin 10-100 mg/5 mL Liquid 5 ml PO QID PRN (Reason: Cough) Discharge Orders: Discharge Order (Routine); Ordered 03/03/23 Ordered By: Babar Bullock Diet: Advance to usual diet Activity on Discharge: As tolerated Stand Alone Forms: Patient Portal Discharge page Care Plan Goals: Resume all your meds as taken prior to hospital Health Concerns: Follow-up with your PCP good range neurological follow-up as indicated Plan of Treatment: Arrange outpatient follow-up with Neurology Assessment: See discharge summary
--- NOTE | 2023-03-03 14:28 | MHC.CM.PN ---
order for home, self-care. CM acknowledge.
== END 2023-03-03 14:55 | disposition home or self-care (01) ==
LOC: HO.ED 13:07 → HO.EDOVER 14:46 → HO.IMC 17:00
PROVIDERS: Admitting Provider Physician Assistant; Emergency Provider Emergency Medicine; PCP Internal Medicine; Visit Provider Hospitalist
DX: G45.9 Transient cerebral ischemic attack, unspecified (principal); R47.01 Aphasia; R47.1 Dysarthria and anarthria; I10 Essential (primary) hypertension; I25.10 Atherosclerotic heart disease of native coronary artery without angina pectoris; E78.5 Hyperlipidemia, unspecified; M19.90 Unspecified osteoarthritis, unspecified site; E11.65 Type 2 diabetes mellitus with hyperglycemia; D64.9 Anemia, unspecified; I73.9 Peripheral vascular disease, unspecified; G47.33 Obstructive sleep apnea (adult) (pediatric); Z85.46 Personal history of malignant neoplasm of prostate; Z85.820 Personal history of malignant melanoma of skin; Z23 Encounter for immunization; Z79.02 Long term (current) use of antithrombotics/antiplatelets; Z79.899 Other long term (current) drug therapy; Z11.52 Encounter for screening for COVID-19
CPT/HCPCS: 36415; 70450; 70496; 70498; 80048; 80061; 80076; 82947; 83735; 83880; 84484; 85025; 85610; 85730; 87635; 90471; 90686; 93005; 96372; 96374; 99222; 99285; J0360; J1644; Q9967

== ENCOUNTER → 2023-03-02 14:45 | Outpatient (BNV) | payer MEDICARE, SELFPAY | PROVIDERS: Admitting Provider Physician Assistant; Emergency Provider Emergency Medicine; PCP Internal Medicine; Visit Provider Physician Assistant | DX: G45.9 Transient cerebral ischemic attack, unspecified (principal) | CPT/HCPCS: 99223; 99239 ==

== ENCOUNTER 2023-05-06 15:56 | Outpatient (REF) | payer MEDICARE, SELFPAY ==
--- NOTE | ~2023-05-06 | XR_ITS ---
EXAMINATION: XR CHEST CLINICAL INFORMATION: Coughing and wheezing COMPARISON: 01/10/2023 TECHNIQUE: 2 views of the chest were obtained. FINDINGS: Lungs hyperaerated but clear. Heart and pulmonary vessels are normal. No pleural effusions. XR/XR chest 2V No substantial change from the prior study. IMPRESSION: Hyperaeration. No active disease.
== END 2023-05-06 15:57 | disposition home or self-care (01) ==
LOC: HO.XRAY 15:56
PROVIDERS: PCP Internal Medicine; Visit Provider Internal Medicine
DX: R05.9 Cough, unspecified (principal); R06.2 Wheezing
CPT/HCPCS: 71046

== ENCOUNTER 2023-07-08 16:10 | Outpatient (REF) | payer MEDICARE, SELFPAY ==
--- NOTE | ~2023-07-08 | XR_ITS ---
EXAMINATION: XR HIP, LEFT CLINICAL INFORMATION: Left hip pain COMPARISON: 09/27/2021 TECHNIQUE: Two views of the left hip. FINDINGS: No significant change mild left hip joint narrowing. No fracture or dislocation. Alignment is maintained. Vascular calcifications. XR/XR hip LT min 2V IMPRESSION: Mild degenerative change. No acute bony pathology.
[2023-07-08 16:31] LABS: MANUAL DIFF FLAG NO
[2023-07-08 17:47] LABS: Estimated Average Glucose 186 mg/dL; Hemoglobin A1c % 8.1 % (<6.0)
[2023-07-08 18:00] LABS: Basophils Absolute Auto 0.1 X10*3/uL (0.0-0.2); Basophils Percent Auto 0.6 % (0-2); Eosinophils Absolute Auto 0.3 X10*3/uL (0.0-0.4); Eosinophils Percent Auto 3.5 % (0-4); Hemoglobin 11.9 g/dl (14.0-18.0); Imm Gran Abs Auto 0.09 X10*3/uL (0.00-0.03); Lymphocytes Absolute Auto 1.8 X10*3/uL (1.2-4.9); Lymphocytes Percent Auto 20.6 % (20-40); Mean Corpuscular HGB Conc 33.1 g/dl (31.0-36.0); Mean Corpuscular Hemoglobin 28.2 pg (27.0-33.0); Mean Corpuscular Volume 85.3 fL (80.0-98.0); Monocytes Percent Auto 11.1 % (2-11); Neutrophils Absolute Auto 5.5 x10*3/uL (2.0-8.3); Neutrophils Percent Auto 63.2 % (45-73); Platelet Count 225 X10*3/uL (160-400); Red Blood Count 4.22 X10*6/uL (4.60-5.80); White Blood Count 8.8 X10*3/uL (4.8-10.8)
[2023-07-08 18:13] LABS: Alanine Aminotransferase 21 U/L (0-40); Albumin Level 4.2 g/dL (3.5-5.0); Alkaline Phosphatase 90 U/L (39-117); Anion Gap 13 (12-20); Aspartate Amino Transferase 19 U/L (5-37); B Type Natriuretic Peptide 71 pg/mL (<100); Bilirubin Total 0.4 mg/dL (0.0-1.0); Blood Urea Nitrogen 24 mg/dL (9-16); Carbon Dioxide 25 mmol/L (22-29); Chloride 106 mmol/L (96-108); Estimated Glomerular Filt Rate > 60; Glucose Random 93 mg/dL (60-115); Iron 65 mcg/dL (45-160); Percent Iron Saturation 22 % (15-50); Sodium 140 mmol/L (135-145); Total Iron Binding Capacity 300 mcg/dL (228-428); Total Protein 7.3 g/dL (6.5-8.0); Unsaturated Iron Binding 235 ug/dL
[2023-07-08 18:16] LABS: Troponin-I High Sensitivity 3.7 ng/L (<3.5-35.0)
== END 2023-07-08 16:11 | disposition home or self-care (01) ==
LOC: HO.XRAY 16:10
PROVIDERS: PCP Internal Medicine; Visit Provider Internal Medicine
DX: M25.552 Pain in left hip (principal); I10 Essential (primary) hypertension; E11.9 Type 2 diabetes mellitus without complications; I25.10 Atherosclerotic heart disease of native coronary artery without angina pectoris; R53.83 Other fatigue
CPT/HCPCS: 36415; 73502; 80053; 82550; 83036; 83540; 83880; 84443; 84484; 85025

== ENCOUNTER 2023-10-01 11:09 | Outpatient (AMB) | payer MEDICARE, SELFPAY ==
--- NOTE | 2023-10-01 11:11 | MHC.OFFVIS ---
Intake Visit Reasons: overdue follow up ARt US & CTA Neck Intake Note: Patient presents for overdue follow up. patient has numbness on right leg and ache in lower back. PCP asked patient to follow up due to him having surgery on his legs.. Allergies Seasonal Allergies Allergy (Verified 10/01/23 11:18) Nasal congestion HPI HPI overdue follow up ARt US & CTA Neck 02/28': Details: Pleasant 83-year-old gentleman presents for follow-up evaluation for lower extremity pain. He actually had a stroke and there has been concern some seizures. Most recently he describes difficulty with his right leg. He has pain down the right leg more so when he has at a sitting position. It has also created a generalized numbness of that leg. He has been seen by a [facility] and now presents for follow-up vascular evaluation. [facility] Medical History Anemia Hx of malignant melanoma Peripheral artery disease Sleep apnea Environmental allergies Arthritis History of prostate cancer Angina pectoris CAD (coronary artery disease) Hyperlipidemia Hypertension Diabetes Surgical History H/O heart artery stent (~2004) S/P aortogram with runoff H/O arthroscopy of right knee S/P cardiac cath Hx of colonoscopy Hx of foot surgery Hx of appendectomy Hx of cholecystectomy Hx of tonsillectomy Social History Household Members: Spouse Housing: House Are you a primary rn palliative care to a significant other at home: Yes ( AT HOME HAD CVA) Do you presently have visiting nurse or other home services: No Alcohol intake: never Patient Tobacco Use Status: Former Tobacco user Tobacco use type: Cigarette Second Hand Smoke Exposure: No Advance Directives Date on File: 03/02/23 service: Yes Review of Systems Const All systems reviewed & are unremarkable except as noted in HPI and below Reports no additional complaints ENT Reports Normal hearing present Card Denies chest pain, Denies chest pain at rest, Denies chest pain with activity and Denies pedal edema Resp Denies cough GI Denies abdominal pain Musc Denies abnormal gait, Denies muscle cramps and Denies radiating pain into limb Skin/Breast Denies skin ulcer and Denies wounds Neuro Reports Normal hearing present and Denies abnormal gait Psych Reports no additional complaints Physical Exam Const General: cooperative, healthy appearing and comfortable Orientation/consciousness: oriented to person, oriented to place and oriented to time HEENT Head: Yes normal to inspection Neck Neck: Yes normal visual inspection Carotids: no bruits Chest Chest palpation & inspection: normal inspection of the chest Resp Effort & Inspection: normal respiratory effort and able to speak in complete sentences Auscultation: clear to auscultation bilaterally, no crackles, no rales, no rhonchi and no wheezes Cardio Other: Bilateral DP signals Rate: regular rate Rhythm: regular rhythm Heart sounds: S1 normal heart sound present and S2 normal heart sound present Bruits: no carotid bruits GI Inspection: Yes normal to inspection Skin Wounds: no wounds Hair: normal Neuro General: oriented to person, oriented to place and oriented to time Cranial nerves: Yes CN's II-XII intact bilaterally and Yes Normal hearing present Cognition (Neuro): normal cognition Motor exam (neuro): 5/5 motor strength present throughout Extrem Other: venous exam: No significant superficial varicosities or spider telangiectasias, minimal edema General: No clubbing, No cyanosis and No edema Psych Appearance: grossly normal Mental Status: mental status grossly normal Speech and movement: Normal speech and movement present Results Reviewed Results Reviewed: Arterial ultrasound dated 01/21/2023 demonstrates ESTHER on the right of 0.97 and on the left of 0.70. CT angio of the head and neck on 03/02/2023 demonstrates no significant stenosis of the carotids Written report and images of both were reviewed Assessment & Plan Assessment & Plan (1) PAD (peripheral artery disease): Comment: 01/25/2020 - right femoral endarterectomy Code(s): I73.9 - Peripheral vascular disease, unspecified Category: Medical Plan: In short the patient has an element of peripheral vascular disease. At the current time his symptoms appear to be more neurogenic in nature and may be related to his spine. I have taken the liberty of ordering repeat lower extremity arterial noninvasive testing to re-evaluate this. We did discuss routine risk factor modification inclusive of walking. He will follow up with us after testing. Thank you for allowing us to assist in his care. Orders: Orders US arterial duplex LE BI 1 Week I73.9 - Peripheral vascular disease, unspecified Coding Level of Care Code Est Pt Level 4 (50194) Diagnoses PAD (peripheral artery disease) I73.9
== END 2023-10-01 11:42 | disposition home or self-care (01) ==
PROVIDERS: PCP Internal Medicine; Visit Provider Surgery Vascular Surgery
DX: I73.9 Peripheral vascular disease, unspecified (principal)
CPT/HCPCS: 99213

== ENCOUNTER → 2023-10-01 11:09 | Outpatient (BNVA) | payer MEDICARE, SELFPAY | PROVIDERS: PCP Internal Medicine; Visit Provider Surgery Vascular Surgery | DX: I73.9 Peripheral vascular disease, unspecified (principal) | CPT/HCPCS: 99212 ==

== ENCOUNTER 2023-11-04 08:52 | Outpatient (REF) | payer MEDICARE, SELFPAY ==
--- NOTE | ~2023-11-04 | US_ITS ---
EXAMINATION: NONINVASIVE ASSESSMENT OF THE ARTERIES OF BOTH LOWER EXTREMITIES INCLUDING PVR EXAM AND BILATERAL LOWER EXTREMITY DUPLEX CLINICAL INFORMATION: Status post right femoral endarterectomy COMPARISON: ABIs and duplex 01/21/2023 TECHNIQUE: Ankle pulse volume recordings, ankle pressure measurements and ankle brachial indices were obtained of the lower extremity arterial system bilaterally in addition to duplex Doppler techniques with wave form analysis and measurement of velocities in the common femoral, profunda femoral, superficial femoral, popliteal, tibial and peroneal arteries. The study was performed only at rest. FINDINGS: RIGHT LEG 1. Right Ankle-Brachial Index: 1 (higher of the DP/PT) >0.97-1.25 = normal - no significant arterial disease 0.75-0.96 = mild peripheral arterial disease 0.5-0.74 = moderate peripheral arterial disease <0.50 = severe peripheral arterial disease <0.30 = critical arterial disease 2. Segmental Pressures (mmHg): Brachial: 200 Ankle: PT 200, DP 200 3. PVR Waveforms: Ankle: Biphasic 4. Direct Duplex: Common femoral artery: 161.2 cm/s, triphasic Profunda femoris artery: 113.4 cm/s, biphasic Superficial femoral artery (proximal): 129.6 cm/s, triphasic Superficial femoral artery (mid): 157.5 cm/s, triphasic Superficial femoral artery (distal): 139.1 cm/s, triphasic Popliteal artery: 83 cm/s, triphasic Mid posterior tibial artery: 83.7 cm/s, monophasic Peroneal artery: Nonvisualized Anterior tibial artery: 15.3 cm/s LEFT LE. Left Ankle-Brachial Index: 1 (higher of the DP/PT) >0.97-1.25 = normal - no significant arterial disease 0.75-0.96 = mild peripheral arterial disease 0.5-0.74 = moderate peripheral arterial disease <0.50 = severe peripheral arterial disease <0.30 = critical arterial disease 2. Segmental Pressures: Brachial: 200 Ankle: PT 200, DP 200 3. PVR Waveforms: Ankle: Biphasic 4. Direct Duplex: Common femoral artery: 347.8 cm/s, monophasic Profunda femoris artery: 378.9 cm/s, monophasic Superficial femoral artery (proximal): 314.2 cm/s, monophasic Superficial femoral artery (mid): 69 cm/s, monophasic Superficial femoral artery (distal): 70.6 cm/s, monophasic Popliteal artery: 95.2 cm/s, monophasic Mid posterior tibial artery: 80.9 cm/s, monophasic US/US arterial duplex BI w/ ESTHER IMPRESSION: Ankle-brachial indices bilaterally of 1, likely artifactual as the patient's brachial pressures and ankle pressures bilaterally are all 200 mmHg. Patient appears to be markedly hypertensive. RIGHT LEG: Status post right femoral endarterectomy. No evidence of hemodynamically significant stenosis. LEFT LEG: Extensive plaque in the left common femoral artery and proximal SFA causing severe stenosis.
== END 2023-11-04 08:53 | disposition home or self-care (01) ==
LOC: HO.US 08:52
PROVIDERS: PCP Internal Medicine; Visit Provider Surgery Vascular Surgery
DX: I73.9 Peripheral vascular disease, unspecified (principal)
CPT/HCPCS: 93922; 93925

== ENCOUNTER 2023-11-28 12:45 | Outpatient (AMB) | payer OTHER, SELFPAY ==
--- NOTE | 2023-11-28 12:54 | A.OFFVIS_ITS ---
Intake Visit Reasons: follow up s/p Arterial US 11/04/23 Intake Note: Follow up LE ARteial US 11/04/23 w/ Hx of right femoral endarterectomy 01/25/2020. Pt states he gets weakness in the Right LE Accompanied by: Son Allergies Seasonal Allergies Allergy (Verified 11/28/23 13:04) Nasal congestion HPI HPI follow up s/p Arterial US 11/04/23: Details: Very pleasant 83-year-old gentleman presents for follow-up regarding peripheral vascular disease. He reports he is doing fairly well and can walk about a block or 2 without any significant difficulty. Has been treated for some seizures. And he has some generalized numbness of his lower extremities. He is currently taking care of his who recently had a stroke. He presents with a family member. He has had noninvasive arterial ultrasound. [facility] Medical History Anemia Hx of malignant melanoma Peripheral artery disease Sleep apnea Environmental allergies Arthritis History of prostate cancer Angina pectoris CAD (coronary artery disease) Hyperlipidemia Hypertension Diabetes Surgical History H/O heart artery stent (~2004) S/P aortogram with runoff H/O arthroscopy of right knee S/P cardiac cath Hx of colonoscopy Hx of foot surgery Hx of appendectomy Hx of cholecystectomy Hx of tonsillectomy Social History Household Members: Spouse Housing: House Are you a primary respiratory care technician to a significant other at home: Yes ( AT HOME HAD CVA) Do you presently have visiting nurse or other home services: No Alcohol intake: never Patient Tobacco Use Status: Former Tobacco user Tobacco use type: Cigarette Second Hand Smoke Exposure: No Advance Directives Date on File: 03/02/23 service: Yes Review of Systems Const All systems reviewed & are unremarkable except as noted in HPI and below Reports no additional complaints ENT Reports Normal hearing present Card Denies chest pain, Denies chest pain at rest, Denies chest pain with activity and Denies pedal edema Resp Denies cough GI Denies abdominal pain Musc Denies abnormal gait, Denies muscle cramps and Denies radiating pain into limb Skin/Breast Denies skin ulcer and Denies wounds Neuro Reports Normal hearing present and Denies abnormal gait Psych Reports no additional complaints Physical Exam Const General: cooperative, healthy appearing and comfortable Orientation/consciousness: oriented to person, oriented to place and oriented to time HEENT Head: Yes normal to inspection Neck Neck: Yes normal visual inspection Carotids: no bruits Chest Chest palpation & inspection: normal inspection of the chest Resp Effort & Inspection: normal respiratory effort and able to speak in complete sentences Auscultation: clear to auscultation bilaterally, no crackles, no rales, no rhonchi and no wheezes Cardio Other: Bilateral DP signals Rate: regular rate Rhythm: regular rhythm Heart sounds: S1 normal heart sound present and S2 normal heart sound present Bruits: no carotid bruits Peripheral pulses: Peripheral pulses 2+ throughout GI Inspection: Yes normal to inspection Skin Wounds: no wounds Hair: normal Neuro General: oriented to person, oriented to place and oriented to time Cranial nerves: Yes CN's II-XII intact bilaterally and Yes Normal hearing present Cognition (Neuro): normal cognition Motor exam (neuro): 5/5 motor strength present throughout Extrem Other: venous exam: No significant superficial varicosities or spider telangiectasias, minimal edema General: No clubbing, No cyanosis and No edema Psych Appearance: grossly normal Mental Status: mental status grossly normal Speech and movement: Normal speech and movement present Results Reviewed Results Reviewed: Noninvasive arterial testing dated 11/04/2023 demonstrates ESTHER on the right of 1 and on the left of 1. Written report and images were reviewed Assessment & Plan Assessment & Plan (1) PAD (peripheral artery disease): Comment: 01/25/2020 - right femoral endarterectomy Code(s): I73.9 - Peripheral vascular disease, unspecified Category: Medical Plan: In short patient has stable claudication. I did review the pathophysiology of peripheral vascular disease with the patient. In addition we did discuss routine conservative measures including a healthy diet and the importance of exercise and ambulation. We did discuss risk factor modification. The patient will continue to to follow-up with surveillance follow-up in approximately 1 year. Thank you for allowing us to participate in this patient's care. If there are any questions or concerns please do not hesitate to contact us. Please note a longitudinal relationship has been created with the patient and we have been following and surveillance this chronic condition. Orders: Orders US arterial duplex LE BI 1 Year I73.9 - Peripheral vascular disease, unspecified Coding Level of Care Code Est Pt Level 4 (93651) Complex EM visit Add On G2211 Diagnoses PAD (peripheral artery disease) I73.9
== END 2023-11-28 13:25 | disposition home or self-care (01) ==
PROVIDERS: PCP Internal Medicine; Visit Provider Surgery Vascular Surgery
DX: I73.9 Peripheral vascular disease, unspecified (principal)
CPT/HCPCS: 99213; G2211

== ENCOUNTER → 2023-11-28 12:45 | Outpatient (BNVA) | payer MEDICARE, SELFPAY | PROVIDERS: PCP Internal Medicine; Visit Provider Surgery Vascular Surgery | DX: I73.9 Peripheral vascular disease, unspecified (principal); R53.1 Weakness | CPT/HCPCS: 99212 ==

== ENCOUNTER 2023-11-30 11:48 | Emergency (ER) | payer MEDICARE, SELFPAY ==
--- NOTE | ~2023-11-30 | CT_ITS ---
EXAMINATION: CT HEAD WITHOUT CONTRAST CT CERVICAL SPINE WITHOUT CONTRAST CT MAXILLOFACIAL CLINICAL INFORMATION: Fall with headache, facial pain and neck pain COMPARISON: CT head and CTA head and neck from 03/02/2023 TECHNIQUE: Contiguous axial imaging was performed from the skull base to vertex without intravenous administration of contrast. In addition, helical noncontrast CT imaging was acquired through the cervical spine and source images were reviewed along with axial reconstructions and sagittal and coronal MPRs. Axial CT imaging of the maxillofacial bones was acquired from below the genu of the mandible through the superior aspect of the frontal sinuses. All CT exams at this location are performed using dose optimization techniques as appropriate to a performed exam including at least one of the following: * Automated exposure control * Adjustment of the mA and/or kV according to patient size (this includes techniques or standardized protocols for targeted exams where dose is matched to indication / reason for exam; i/e/ extremities or head) * Use of iterative reconstructive technique DLP: 1567 mGy-cm FINDINGS: HEAD: No intracranial mass, hemorrhage, or midline shift is visualized. 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 Old lacunar infarct is seen within the left caudate head. Periventricular and subcortical white matter changes seen consistent chronic microvascular ischemic disease. Generalized atrophy is seen. Ventricles are prominent in size due to underlying atrophy. No extra-axial collections are identified. The paranasal sinuses are well aerated. CERVICAL SPINE: There is no evidence of acute cervical spine fracture. Vertebral body height and alignment is well maintained. No pre- or paravertebral soft tissue abnormality is identified. Disc spaces and facet joints are well maintained. Limited assessment of the lung apices is unremarkable. FACE: There is no significant facial soft tissue swelling. The intraconal and extraconal fat of both orbits is preserved. The globes, optic nerve sheaths, extraocular muscles, and lacrimal glands demonstrate a symmetric and unremarkable appearance. Status post lens surgery of the right globe. The zygomatic arches appear intact without evidence of fracture or sutural diastasis. There is no evidence of acute fracture of the midface or mandible. The temporomandibular joints maintain normal articulation. The middle ear cavities and imaged mastoid air cells are clear. There is mucosal thickening of the bilateral maxillary sinuses. There is a small air-fluid level within the right maxillary sinus. Remaining paranasal sinuses are clear CT/CT cervical spine wo IV con IMPRESSION: 1. No acute intracranial pathology. 2. No CT evidence of acute cervical spine fracture or traumatic subluxation. 3. No CT evidence of acute facial bone fracture. 4. Chronic changes as described above. Electronically signed by: Anthony Steele MD 11/30/2023 02:28 PM EDT
[2023-11-30 11:53] VITALS: BP 177/57; PULSE 55; RESP 20; TEMP 36.5; O2SAT 97; BMI 30.8
--- NOTE | 2023-11-30 11:55 | ED_ITS ---
HPI - Fall General Chief Complaint: Fall Stated Complaint: fall Time Seen by Provider: 11/30/23 12:19 Source: patient and family Mode of arrival: ambulatory Limitations: no limitations History of Present Illness ED Provider: Juan José Dsouza PA-C HPI Narrative: 83-year-old male with a history of P 80s, MONIQUE, prostate cancer status post radiation therapy, CAD s/p stent, CVA, seizures, HTN, HLD, DM who presents to the ER for evaluation of a mechanical fall today. Patient was walking into the grocery store with his daughter when he accidentally tripped on the curb, he fell forward, landing on his hands and knees, then he hit his face on the cement. He sustained abrasions to his left hand, bilateral knees and his nose. No loss of consciousness. He is on Plavix but no systemic anticoagulation. Denies any headache or neck pain. No chest pain or abdominal pain. He was not dizzy or symptomatic before he tripped. He was helped up to his feet and was ambulatory after the fall. MD complaint: fall Onset (ago): minute(s) Fall from: standing Fall witnessed: yes, by family Place fall occurred: street Loss of consciousness: none Prolonged down time: no Symptoms prior to fall: none Context: tripped/slipped Location of injury: face Location of injury - extremities: left: hand and knee Severity: mild Associated symptoms (after fall): denies Related Data Home Medications ?Medication ?Instructions ?Recorded ?Confirmed glipizide 5 mg tablet 10 mg PO BIDWM 01/25/20 03/02/23 nitroglycerin 0.4 mg sublingual 0.4 mg sublingual Q5M PRN Chest 01/25/20 03/02/23 tablet Pain carvedilol 6.25 mg tablet 6.25 mg PO BID 03/02/23 03/02/23 clopidogrel 75 mg tablet 75 mg PO DAILY 03/02/23 03/02/23 codeine 10 mg-guaifenesin 100 mg/5 5 ml PO QID PRN Cough 03/02/23 03/02/23 mL oral liquid losartan 25 mg tablet 25 mg PO DAILY 03/02/23 03/02/23 multivitamin 1 tab PO DAILY 03/02/23 03/02/23 sucralfate 1 gram tablet 1 g PO BID@1000,199903/02/23 03/02/23 levetiracetam 750 mg tablet 750 mg PO BID 10/01/23 (Keppra) montelukast 10 mg tablet 10 mg PO BEDTIME 10/01/23 (Singulair) Previous Rx's ?Medication ?Instructions ?Recorded aspirin 81 mg tablet,delayed 81 mg PO DAILY #30 tabs 11/08/20 release atorvastatin 40 mg tablet (Lipitor) 40 mg PO BEDTIME #30 tabs 11/08/20 Allergies Allergy/AdvReac Type Severity Reaction Status Date / Time Seasonal Allergies Allergy Nasal Verified 11/30/23 11:57 congestion Review of Systems Review of Systems: Yes all other systems are reviewed and are negative [facility] Past Medical History Medical History Anemia Hx of malignant melanoma Peripheral artery disease Sleep apnea Environmental allergies Arthritis History of prostate cancer Angina pectoris CAD (coronary artery disease) Hyperlipidemia Hypertension Diabetes Surgical History H/O heart artery stent (~2004) S/P aortogram with runoff H/O arthroscopy of right knee S/P cardiac cath Hx of colonoscopy Hx of foot surgery Hx of appendectomy Hx of cholecystectomy Hx of tonsillectomy Social History Social History Household Members: Spouse Housing: House Are you a primary child care counselor to a significant other at home: Yes ( AT HOME HAD CVA) Do you presently have visiting nurse or other home services: No Alcohol intake: never Patient Tobacco Use Status: Former Tobacco user Tobacco use type: Cigarette Second Hand Smoke Exposure: No Advance Directives: Yes Advance Directives on File: Yes Advance Directives Date on File: 03/02/23 Do you have a plan to hurt others: No Plan service: Yes Physical Exam Vital Signs: Vital Signs: Last Vital Signs Temp 96.6 F L 11/30/23 14:13 Pulse 56 11/30/23 14:13 Resp 18 11/30/23 14:13 BP 172/80 H 11/30/23 14:13 Pulse Ox 97 11/30/23 14:13 O2 Del Method Room Air 11/30/23 14:13 BMI result Body Mass Index 30.8 Appearance: Alert. Oriented X3. No acute distress. Head: normocephalic, atraumatic. Face is symmetric Eyes: Pupils equal, round and reactive to light. ENT: Superficial abrasion over the entire nose with no active bleeding. No epistaxis. Pharynx normal. No tonsillar swelling or exudate. No dental trauma. Neck: Normal inspection. Neck supple. No midline tenderness. CVS: Normal heart rate and rhythm. Pulses normal. Respiratory: No respiratory distress. Breath sounds diminished at the bilateral bases but no adventitious lung sounds Abdomen: Obese Soft and nontender. +BS x4 Skin: Skin warm and dry. Normal skin color. Normal skin turgor. No rashes. Extremities: Superficial abrasions to the left anterior knee with normal extension and flexion. No gross swelling of the knee. Superficial abrasion on the left palm. Neuro/psych: Oriented X 3. Strength is grossly equal and symmetrical throughout. Course Course Course Narrative: This is a rapid medical exam. Deferrd additional with history of PAD on dual platelet therapy, DM, HLD here with complaints of facial pain after trip and fall with head strike. Has some abrasions over the knees but FROM, ambulatory Will obtain CT head/facial bones/cervical spine Believes he is UTD with his tetanus -A. [place] LUND Medical Decision Making Medical Decision Making MDM Narrative: 83-year-old male with multiple medical problems presents to the ER after he had a witnessed mechanical fall in the parking lot of a grocery store today. He fell onto his hands and knees and then hit his face on the cement. No LOC. Not on anticoagulation. He has superficial abrasions on his nose in his knee on the left side. He was ambulatory after the fall. On arrival to the ER he was hypertensive to the 170 systolic. He states he took his morning medications. He does not have any headache or chest pain. No vision changes. CT scans of his head, neck, face were performed that did not show any acute traumatic injuries. Wounds were cleansed with normal saline and bacitracin and dry sterile dressings were applied. Comfortable discharge home with outpatient follow-up with his PCP. Encouraged home monitoring of his BP and compliance with all his medications. Return precautions were discussed. Differential Diagnosis Differential Diagnoses: The differential diagnosis associated with the presentation includes Superficial abrasion to the nose, nasal bone fracture, concussion, head bleed Admission/Observation Consideration of admission/observation: Escalation of care including admission/observation considered Elderly male with called multiple comorbidities and recurrent falls, considered observation/admission Independent Interpretation I performed an independent interpretation of an: CT Scan Interpretation: CT head without any edema or bleeding, agree with radiology read Radiology Impression Discussion of test interpretation with radiology: I have reviewed the radiologist's reading. Radiologist Impression: EXAMINATION: CT HEAD WITHOUT CONTRAST CT CERVICAL SPINE WITHOUT CONTRAST CT MAXILLOFACIAL CLINICAL INFORMATION: Fall with headache, facial pain and neck pain COMPARISON: CT head and CTA head and neck from 03/02/2023 TECHNIQUE: Contiguous axial imaging was performed from the skull base to vertex without intravenous administration of contrast. In addition, helical noncontrast CT imaging was acquired through the cervical spine and source images were reviewed along with axial reconstructions and sagittal and coronal MPRs. Axial CT imaging of the maxillofacial bones was acquired from below the genu of the mandible through the superior aspect of the frontal sinuses. All CT exams at this location are performed using dose optimization techniques as appropriate to a performed exam including at least one of the following: * Automated exposure control * Adjustment of the mA and/or kV according to patient size (this includes techniques or standardized protocols for targeted exams where dose is matched to indication / reason for exam; i/e/ extremities or head) * Use of iterative reconstructive technique DLP: 1567 mGy-cm FINDINGS: HEAD: No intracranial mass, hemorrhage, or midline shift is visualized. 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 Old lacunar infarct is seen within the left caudate head. Periventricular and subcortical white matter changes seen consistent chronic microvascular ischemic disease. Generalized atrophy is seen. Ventricles are prominent in size due to underlying atrophy. No extra-axial collections are identified. The paranasal sinuses are well aerated. CERVICAL SPINE: There is no evidence of acute cervical spine fracture. Vertebral body height and alignment is well maintained. No pre- or paravertebral soft tissue abnormality is identified. Disc spaces and facet joints are well maintained. Limited assessment of the lung apices is unremarkable. FACE: There is no significant facial soft tissue swelling. The intraconal and extraconal fat of both orbits is preserved. The globes, optic nerve sheaths, extraocular muscles, and lacrimal glands demonstrate a symmetric and unremarkable appearance. Status post lens surgery of the right globe. The zygomatic arches appear intact without evidence of fracture or sutural diastasis. There is no evidence of acute fracture of the midface or mandible. The temporomandibular joints maintain normal articulation. The middle ear cavities and imaged mastoid air cells are clear. There is mucosal thickening of the bilateral maxillary sinuses. There is a small air-fluid level within the right maxillary sinus. Remaining paranasal sinuses are clear CT/CT facial bones wo IV con IMPRESSION: 1. No acute intracranial pathology. 2. No CT evidence of acute cervical spine fracture or traumatic subluxation. 3. No CT evidence of acute facial bone fracture. 4. Chronic changes as described above. External Record Review External record reviewed: Office record, Outpatient record, Prior outpatient labs and Prior outpatient radiology Prescription Management I considered prescription management with: Pain Medication Chronic Conditions Patient?s care impacted by: Diabetes, Hypertension and Other (CVA, PAD) Critical Care Time Critical Care Time Critical Care Time: No Discharge Plan Discharge Clinical Impression: Abrasion of nose Qualifiers: Encounter type: initial encounter Qualified Code(s): S00.31XA - Abrasion of nose, initial encounter Abrasion of knee Qualifiers: Encounter type: initial encounter Laterality: left Qualified Code(s): S80.212A - Abrasion, left knee, initial encounter Patient Disposition: Home, Self-Care Instructions: Abrasion (ED) Additional Instructions: Your CT scan today did not show any evidence of acute injuries. For the abrasions recommend using bacitracin to keep the areas moist and promote healing. Recommend Tylenol and Motrin as needed for pain. Follow-up with your doctor as needed. If you develop new or worsening symptoms call 911 or come back to the ER for further evaluation. Prescriptions: No Action nitroglycerin 0.4 mg Tablet, Sublingual 0.4 mg SUBLINGUAL Q5M PRN (Reason: Chest Pain) glipizide 5 mg Tablet 10 mg PO BIDWM atorvastatin [Lipitor] 40 mg tablet 40 mg PO BEDTIME Qty: 30 0RF aspirin 81 mg Tablet,Delayed Release (Dr/Ec) 81 mg PO DAILY Qty: 30 0RF multivitamin Tablet 1 tab PO DAILY carvedilol 6.25 mg Tablet 6.25 mg PO BID Rx Instructions: must administer with a meal/food sucralfate 1 gram Tablet 1 g PO BID@1000,2000 clopidogrel 75 mg Tablet 75 mg PO DAILY losartan 25 mg Tablet 25 mg PO DAILY codeine-guaifenesin 10-100 mg/5 mL Liquid 5 ml PO QID PRN (Reason: Cough) levetiracetam [Keppra] 750 mg tablet 750 mg PO BID montelukast [Singulair] 10 mg tablet 10 mg PO BEDTIME Print Language: Malaysian
[2023-11-30 14:13] VITALS: BP 172/80; PULSE 56; RESP 18; TEMP 35.9; O2SAT 97
--- NOTE | 2023-11-30 14:16 | MHC.EDTECH ---
This tech assessed this pt blood pressure which came back as 230/70 and stayed in the 200's for a systolic number. This tech then obtained a manual BP which was 172/80.
[2023-11-30] MEDS: Bacitracin Oint 0.9 GM PACKET 1 APPL TOPICAL (15:16)
[2023-11-30 15:20] VITALS: BP 172/80; PULSE 56; RESP 18; TEMP 35.9; O2SAT 97
== END 2023-11-30 15:20 | disposition home or self-care (01) ==
PROVIDERS: Emergency Provider Emergency Medicine; PCP Internal Medicine
DX: S60.512A Abrasion of left hand, initial encounter (principal); S80.212A Abrasion, left knee, initial encounter; S80.211A Abrasion, right knee, initial encounter; S00.31XA Abrasion of nose, initial encounter; W10.1XXA Fall (on)(from) sidewalk curb, initial encounter; E11.9 Type 2 diabetes mellitus without complications; I10 Essential (primary) hypertension; E78.5 Hyperlipidemia, unspecified; M25.562 Pain in left knee; Y93.89 Activity, other specified; Y92.481 Parking lot as the place of occurrence of the external cause; Y99.9 Unspecified external cause status
CPT/HCPCS: 70450; 70486; 72125; 99283; 99284

== ENCOUNTER 2023-12-20 14:18 | Outpatient (REF) | payer MEDICARE, SELFPAY ==
--- NOTE | ~2023-12-20 | XR_ITS ---
EXAMINATION: XR SHOULDER, RIGHT CLINICAL INFORMATION: Right shoulder pain. COMPARISON: None available. TECHNIQUE: AP external rotation, Grashey, scapular Y, and axillary views of the right shoulder. FINDINGS: Bones are osteopenic. Mild glenohumeral and acromioclavicular osteoarthritis. No fracture or malalignment. Soft tissues are unremarkable. . XR/XR shoulder RT min 2V IMPRESSION: Mild glenohumeral and acromioclavicular osteoarthritis. No acute osseous findings. Electronically signed by: Bishnu Oates MD 12/20/2023 04:50 PM EDT RP
== END 2023-12-20 14:19 | disposition home or self-care (01) ==
LOC: HO.XRAY 14:18
PROVIDERS: PCP Internal Medicine; Visit Provider Internal Medicine
DX: M25.511 Pain in right shoulder (principal)
CPT/HCPCS: 73030

== ENCOUNTER 2024-02-11 13:11 | Outpatient (REF) | payer MEDICARE, SELFPAY | END 2024-02-11 13:12 | disposition home or self-care (01) | LOC: HO.US 13:11 | PROVIDERS: PCP Internal Medicine; Visit Provider Surgery Vascular Surgery | DX: Z13.89 Encounter for screening for other disorder (principal) ==

== ENCOUNTER 2024-02-19 11:14 | Outpatient (REF) | payer MEDICARE, SELFPAY ==
--- NOTE | ~2024-02-19 | XR_ITS ---
EXAMINATION: XR FOOT, RIGHT CLINICAL INFORMATION: Foot pain after stubbing toe COMPARISON: None available. TECHNIQUE: AP, lateral, and oblique views of the right foot. FINDINGS: No fracture or destructive lesion or alignment abnormality. Degenerative changes observed, in the first IP joint, and second through fifth PIP and DIP joints. Vascular calcifications are noted. There is moderate spurring along the posterior margin of the calcaneus. XR/XR foot RT min 3V IMPRESSION: No fracture Electronically signed by: Rahul Atkinson MD 02/19/2024 03:41 PM EST RP
== END 2024-02-19 11:15 | disposition home or self-care (01) ==
LOC: HO.XRAY 11:14
PROVIDERS: PCP Internal Medicine; Visit Provider Internal Medicine
DX: M79.671 Pain in right foot (principal)
CPT/HCPCS: 73630

== ENCOUNTER 2024-06-17 09:27 | Outpatient (AMB) | payer MEDICARE, SELFPAY ==
--- NOTE | 2024-06-17 09:07 | A.OFFVIS_ITS ---
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: No Horticultural Worker: Horticultural Worker offered & declined Accompanied by: Son Allergies Seasonal Allergies Allergy (Verified 06/17/24 09:38) Nasal congestion Medication List - Last Reconciled 06/17/24 by Laurita Corrigan LPN albuterol sulfate 90 mcg/actuation 2 puffs inhalation Q4-6H PRN aspirin 81 mg PO DAILY atorvastatin (Lipitor) 40 mg PO BEDTIME carvedilol 6.25 mg PO BID clopidogrel 75 mg PO DAILY codeine-guaifenesin 10-100 mg/5 mL 5 mL PO QID PRN glipizide 10 mg PO BIDWM levetiracetam (Keppra) 500 mg PO BID losartan 25 mg PO DAILY montelukast (Singulair) 10 mg PO BEDTIME montelukast 10 mg PO DAILY multivitamin 1 tab PO DAILY nitroglycerin 0.4 mg sublingual Q5M PRN omeprazole 10 mg PO DAILY sertraline (Zoloft) 25 mg PO DAILY sucralfate 1 g PO BID@1000,1999 HPI HPI COUGH/ COPD: Details: Hiren is a pleasant 84 year old male, former smoker, quit 1972 with less than 10 pack year history with underlying MONIQUE on CPAP, HTN, CKDIII, PVD, CAD s/p stent, h/o prostate cancer s/p radiation >20 years ago and h/o melanoma of chest s/p resection, under the care of dermatology. He was referred by PCP for pulmonary evaluation for ongoing productive cough thought to be related to rhinitis started on Singulair and Flonase. He does note that cough has improved how continues with dyspnea on exertion. Denies wheezing or chest tightness. He attributes cough to possibly post nasal drip. He is unsure of any seasonal allergies, no recent allergy testing. He has three dogs at home. No recent chest imaging. Prior CXR 2023 revealed hyperinflation otherwise unremarkable. He has also been prescribed albuterol MDI, which he uses every 4-6 hours with good effect. He denies any prior h/o asthma/COPD. He denies recurrent respiratory infections. 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 [facility] Medical History (Updated 06/19/24 @ 09:20 by Soha Boles NP) Anemia Hx of malignant melanoma Peripheral artery disease Sleep apnea Environmental allergies Arthritis History of prostate cancer Angina pectoris CAD (coronary artery disease) Hyperlipidemia Hypertension Diabetes Surgical History H/O heart artery stent (~2004) S/P aortogram with runoff H/O arthroscopy of right knee S/P cardiac cath Hx of colonoscopy Hx of foot surgery Hx of appendectomy Hx of cholecystectomy Hx of tonsillectomy Social History (Updated 06/17/24 @ 09:49 by Laurita Corrigan LPN) Household Members: Spouse Housing: House Are you a primary care asst to a significant other at home: Yes ( AT HOME HAD CVA) Do you presently have visiting nurse or other home services: No Alcohol intake: never Patient Tobacco Use Status: Former Tobacco user Tobacco use type: Cigarette Cigarettes Per Day: 6 Years Smoked: 6 cigarettes per day x10yrs. Quit 50 yrs ago. Second Hand Smoke Exposure: No Advance Directives Date on File: 03/02/23 service: Yes Review of Systems Const Denies chills, Denies excessive sweating, Denies fever(s), Denies headache(s) and Denies night sweats Eyes Denies dry eyes, Denies irritation and Denies itchy eyes ENT Reports Normal hearing present, Denies headache(s), Denies nasal congestion, Denies nasal discharge, Denies post nasal drip and Denies sore throat Card Denies chest pain, Denies chest pain at rest, Denies chest pain with activity, Denies claudication, Denies leg edema, Denies orthopnea and Denies paroxysmal nocturnal dyspnea Resp Denies chest congestion, Denies excessive phlegm production, Denies pain on inspiration, Denies pain with cough, Denies stridor and Denies wheezing Musc Denies myalgias Neuro Reports Normal hearing present and Denies headache(s) Endo Denies excessive sweating Brad/Lymph Denies lymphadenopathy Aller/Immun Denies itchy eyes, Denies seasonal rhinorrhea and Denies wheezing Physical Exam Vital Signs: Last Vital Signs Pulse 77 06/17/24 09:33 BP 146/78 H 06/17/24 09:33 Pulse Ox 98 06/17/24 09:33 BMI result Body Mass Index 31.9 Const General: cooperative, healthy appearing, comfortable, no acute distress, well developed and alert Nutritional Appearance: obese Orientation/consciousness: patient oriented x3 Limitations: no limitations HEENT Head: Yes normal to inspection, Yes normocephalic and Yes atraumatic Ears: hearing grossly normal bilaterally and external ears normal Eyes General: appearance normal, both eyes and all related structures Eyelids: Yes eyelids normal Sclerae: sclerae normal EOM: EOMs intact bilaterally Neck Neck: Yes normal visual inspection and Yes no lymphadenopathy Lymphatic: no lymphadenopathy noted Chest Chest palpation & inspection: normal inspection of the chest Resp Effort & Inspection: normal respiratory effort, able to speak in complete sentences, no audible wheezes, no cough, no stridor, not tachypneic, no tripod positioning and no use of accessory muscles Auscultation: clear to auscultation bilaterally Cardio Jugular venous distension: no JVD Rate: regular rate Rhythm: regular rhythm Skin Other: warm, dry General skin exam: no rashes or lesions noted Neuro General: patient oriented x3 Cranial nerves: Yes Normal hearing present Cognition (Neuro): normal cognition Gait exam (Neuro): Normal gait present Extrem General: Yes normal to inspection, Yes capillary refill normal, Yes no clubbing, cyanosis or edema and Yes no pedal edema Psych Appearance: grossly normal and well kempt Speech and movement: Normal speech and movement present and Clear speech present Affect: normal affect Attitude: cooperative Thought process: Normal thought process present Thought content: Normal thought content present Insight: Good insight present (Psych) Judgement: Good judgement present (Psych) Assessment & Plan Assessment & Plan (1) Cough: Code(s): R05.9 - Cough, unspecified Category: Medical (2) Dyspnea on exertion: Code(s): R06.09 - Other forms of dyspnea Category: Medical (3) Environmental allergies: Code(s): Z91.09 - Other allergy status, other than to drugs and biological substances Category: Medical Plan Hiren presents for pulmonary evaluation for ongoing dry cough and dyspnea on exertion. Will send for PFT to assess for obstructive defect and RAST to assess for an allergic component. Will send for CXR to assess for any underlying parenchymal condition, prior imaging reported hyperinflation suggestive of asthma/COPD. Discussed trialing an ICS however patient would like to hold off and continue to use albuterol MDI until after PFT. All questions were answered and patient is in agreement of plan. Will follow up to review results or sooner if needed. Orders: Orders XR chest 2V Today R05.9 - Cough, unspecified Complete Blood Count Auto Diff 06/17/24 Z91.09 - Other allergy status, other than to drugs and biological substances Immunoglobulin E 06/17/24 Z91.09 - Other allergy status, other than to drugs and biological substances Resp Allergy Profile Region I 06/17/24 Z91.09 - Other allergy status, other than to drugs and biological substances PFT pulmonary function test Today R05.9 - Cough, unspecified, R06.09 - Other forms of dyspnea Coding Level of Care Code New Pt Level 4 (26531) Diagnoses Cough R05.9 Dyspnea on exertion R06.09 Environmental allergies Z91.09
[2024-06-17 09:33] VITALS: BP 146/78; PULSE 77; O2SAT 98; BMI 31.9
--- OUTSIDE RECORDS SUMMARY | 2024-06-17 10:18 | XMS_ITS ---
Author Name [facility] [place] [facility] [place] Organization [facility] [place] Address [address] [place] [address] Care Team Providers Care Collection Correspondent Name Role Phone ELOINA SAVAGE Primary Care Provider Unavailvirtua voorhees Insurance Providers: All historical and current Section Date Range: From patient's date of to the date document was created. This section includes the names of all active insurance providers for the patient. Insurance Provider Type of Coverage Plan Name Start of Policy Coverage End of Policy Coverage Group Number Member ID Insurance Provider's Telephone Number Policy Zurita's Name Patient's Relationship to Policy Zurita MEDICARE (WNR) MEDICARE (M) PART A Feb 06, 2005 PART A [id number] DEXTER MORAN PATIENT MEDICARE (WNR) MEDICARE (M) PART B Feb 06, 2005 PART B [id number] DEXTER MORAN PATIENT Selected Encounter This section includes the information on record at [place] for the Encounter. Date/Time Encounter Type Encounter Description Reason Pro vider Source May 27, 2024 01:26 PM Outpatient Encounter TELEPHONE PRIMARY CARE IHE Encounter Template Text not used by [place] Plan of Treatment: Future Appointments (+ 6 months) and Future Tests (+/- 45 days) The Plan of Treatment section includes future care activities for the patient from all [facility] treatmentfacilities. This section includes future appointments and future orders which are active, pending or scheduled. Future Appointments This section includes appointments that were scheduled to occur 6 months from the date of the Encounter, up to a maximum of 20 appointments. The data comes from all [facility]. Appointment Date/Time Appointment Type Appointme nt Facility Name Jun 10, 2024 11:30 AM [place]ORY [place] [facility] [place] [facility] Jun 10, 2024 01:30 PM [place] [facility] [place] [facility] Jun 18, 2024 01:00 PM AMBULATORY - REHAB MEDICIN [facility] [place] [facility] Jul 22, 2024 11:30 AM [place] [facility] [place] [facility] August 19, 2024 10:40 AM [place] [facility] [place] [facility] Oct 12, 2024 11:00 AM [place] [facility] [place] [facility] Oct 28, 2024 04:00 PM [facility]ORY [facility] NONE [facility] Active, Pending, and Scheduled Orders This section includes a listing of several types of active, pending, and scheduled orders, including clinic medications orders, diagnostic test orders, procedure orders and consult orders; where the start date of the order is 45 days before the date of the Encounter or 45 days after the date of theEncounter. The data comes from all [facility]. Test Date/Time Test Type Test Details Facility Name Jun 10, 2024 01:02 PM Consult Order COMMUNITY CARE-CARDIOLOGY Cons Up[place] Bound Director's Choice [facility] Jun 10, 2024 01:02 PM Consult Order COMMUNITY CARE-PULMONARY Cons [place] Director's Choice [facility] Lab Results: +/- 30 days of the encounter This section includes the Chemistry and Hematology Lab Results on record with [place] for the patient. Radiology Reports and Pathology Reports are provided separately, in subsequent sections. Lab Results This section contains the Chemistry/Hematology Results that were resulted 30 days before or 30 daysafter the date of the Encounter. Date/Time Source Result Type Result - Unit Interpretation Reference Range Comment May 20, 2024 01:32 PM [facility] CBC Specimen Type: BLOOD No comment entered. Ordering Provider: RHONDA SAVAGE AM Report Released Date/Time: Mar 26, 2024 03:22 PM Reporting Lab: [facility] [address] [facility] [address] Performing Lab: [facility] [address] [facility] [address] WBC 6.58 10*3/uL 4.50-11.00 RBC 3.94 10*6/uL L 4.23-5.66 HGB 11.2 g/dL L 12.8-17 HCT 33.9 L 39.2-50.4 MCV 86.0 fL 82-99 MCHC 33.0 g/dL 30.8-35.1 PLT 226 10*3/uL 140-360 RDW-CV 14.2 12.0-16.0 MCH 28.4 pg 26.2-32.6 May 20, 2024 01:32 [facility] LIPID PANEL, NON FASTING Specimen Type: SERUM Comment: *UREA NITROGEN Not Performed: May 20, 2024@15:11 by [id number] *GEOPHYSICAL MANAGER Reason: DUP *GLUCOSE Not Performed: May 20, 2024@15:11 by [id number] *GEOPHYSICAL MANAGER Reason: DUP *SODIUM Not Performed: May 20, 2024@15:11 by [id number] *GEOPHYSICAL MANAGER Reason: DUP *POTASSIUM Not Performed: May 20, 2024@15:11 by [id number] *GEOPHYSICAL MANAGER Reason: DUP *CHLORIDE Not Performed: May 20, 2024@15:11 by [id number] *GEOPHYSICAL MANAGER Reason: DUP *CO2 Not Performed: May 20, 2024@15:11 by [id number] *GEOPHYSICAL MANAGER Reason: DUP *CREATININE (eGFR 2020) Not Performed: May 20, 2024@15:11 by [id number] *GEOPHYSICAL MANAGER Reason: DUP Ordering Provider: RHONDA SAVAGE AM Report Released Date/Time: Mar 26, 2024 03:22 PM Reporting Lab: [facility] [address] [facility] [address] Performing Lab: [facility] [address] [address] CHOLESTEROL 141 mg/dL TRIGLYCERIDE 205 mg/dL H 0-150 LDL calculated 57 mg/dL 0-129 CHOL/HDL 3.3 HDL CHOLESTEROL 43 mg/dL 40-60 May 20, 2024 01:32 PM [facility] LIVER FUNCTION Specimen Type: SERUM Comment: *UREA NITROGEN Not Performed: May 20, 2024@15:11 by [id number] *GEOPHYSICAL MANAGER Reason: DUP *GLUCOSE Not Performed: May 20, 2024@15:11 by [id number] *GEOPHYSICAL MANAGER Reason: DUP *SODIUM Not Performed: May 20, 2024@15:11 by [id number] *GEOPHYSICAL MANAGER Reason: DUP *POTASSIUM Not Performed: May 20, 2024@15:11 by [id number] *GEOPHYSICAL MANAGER Reason: DUP *CHLORIDE Not Performed: May 20, 2024@15:11 by [id number] *GEOPHYSICAL MANAGER Reason: DUP *CO2 Not Performed: May 20, 2024@15:11 by [id number] *GEOPHYSICAL MANAGER Reason: DUP *CREATININE (eGFR 2020) Not Performed: May 20, 2024@15:11 by [id number] *GEOPHYSICAL MANAGER Reason: DUP Ordering Provider: RHONDA SAVAGE AM Report Released Date/Time: Mar 26, 2024 03:22 PM Reporting Lab: [address] [address] Performing Lab: [address] [address] PROTEIN,TOTAL 6.7 g/dL 6.0-8.3 ALBUMIN 3.8 g/dL 3.5-5.0 ALKALINE PHOSPHATASE 83 U/L 40-150 AST 13 U/L 5-34 ALT 15 U/L BILIRUBIN, TOTAL 0.4 mg/dL 0.2-1.2 May 20, 2024 01:32 PM [facility] PT & INR (PROTIME) Specimen Type: PLASMA No comment entered. Ordering Provider: RHONDA SAVAGE AM Report Released Date/Time: Mar 26, 2024 03:22 PM Reporting Lab: [address] [address] Performing Lab: [address] [address] INR 1.5 PROTIME 16.0 s H 10.0-13.1 May 20, 2024 01:32 PM [facility] HEMOGLOBIN A1C PANEL Specimen Type: BLOOD Comment: Values obtained from A1C measurements can vary. For atypical A1C assays, a reported value of 7.0 could actually be between 6.72 and 7.28 if measured by a reference method. A reported value of 9.0 could actually be between 8.73 and 9.27. Ref: http://www.ngs p.org/CAPdata. asp Ordering Provider: RHONDA SAVAGE AM Report Released Date/Time: Mar 26, 2024 03:22 PM Reporting Lab: [address] [address] Performing Lab: [address] [address] HEMOGLOBIN A1C 8.6 H 4.0-5.6 May 20, 2024 01:32 PM [facility] BASIC METABOLIC PANEL (non-fasting) Specimen Type: SERUM No comment entered. Ordering Provider: ADAIR APODACA Report Released Date/Time: May 18, 2024 08:18 AM Reporting Lab: [address] [address] Performing Lab: [address] [address] UREA NITROGEN 17 mg/dL 7-25 GLUCOSE 158 mg/dL H 65-100 SODIUM 137 mmol/L 135-145 POTASSIUM 4.1 mmol/L 3.5-5.0 CHLORIDE 106 mmol/L 100-110 CO2 24 meq/L 20-30 CREATININE, Serum 0.83 mg/dL 0.50-1.40 eGFR(CKD-EPI 2020) 86 mL/min >60 May 20, 2024 01:32 PM [facility] MICROALBUMIN CREATININE RATIO PANEL Specimen Type: URINE No comment entered. Ordering Provider: ADAIR APODACA Report Released Date/Time: May 18, 2024 08:18 AM Reporting Lab: [address] [address] Performing Lab: [address] [address] MICROALBUMIN/C REATININE RATIO 19.1 mg/g 0-29.9 MICROALBUMIN,Q UANTITATIVE 1.5 mg/dL RR UNAVAIL CREATININE URINE 78.41 mg/dL Vital Signs: All taken on the encounter date This section contains inpatient and outpatient Vital Signs collected on the date of the Encounter. Date/Time Temperature Pulse Blood Pressure Respiratory Rate SP02 Pain Height Weight Body Mass Index Source May 27, 2024 02:01 PM 76 120/71 [facility] Social History: Smoking Status (Most current) and Tobacco Use (All prior to encounter date) This section includes the most current, and the historical, smoking and tobacco- related health factors from the [place] facility where the Encounter took place. Current Smoking Status This section includes the most current smoking, or tobacco-related health factor, from the [place] facility where the Encounter took place. Date/Time Current Smoking Status Comment Facil ity August 16, 2023 11:14 AM [place]-TOBACCO FORMER USER [facility] Tobacco Use History This section includes a history of the smoking, or tobacco-related health factors, that were collected on or before the date of the Encounter. The data comes from the [place] facility where the Encounter took place. Date/Time Smoking Status/Tobacco Use Comment F actong August 16, 2023 11:14 AM [place]-TO[place]AC[place] QU[place] 15 YRS OR MORE [facility] Encounter Notes: All associated encounter notes This section contains the clinical notes associated to the Encounter. Date/Time Encounter Note(s) Provider Source May 27, 2024 01:36 PM ADMINISTRATIVE NOTE: LOCAL TITLE: FAX/MAIL RECEIVED STANDARD TITLE: ADMINISTRATIVE NOTE DATE OF NOTE: MAY 27, 2024@13:36 ENTRY DATE: MAY 27, 2024@13:36:50 AUTHOR: ELISABETH CALLE EXP COSIGNER: URGENCY: STATUS: COMPLETED Document Received On: May Document Type: Office Visit Note Date of Service: May Facility and or Provider: [facility] Contact Information: PCP of Record: ELOINA SAVAGE Next visit with PCP: 10/12/2024 11:00 [facility] PACT 7 GEOPHYSICAL MANAGER Primary Care May keep copies of this document for up to 14 days and send the original for scanning. 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 Hospitalization 10/2022 with accelerated hypertension and non-STEMI, with cardiac catheterization showing occluded collateralized RCA and mild to moderate LAD and circumflex disease. Echo with overall preserved L V function hyperdynamic with no major valvular abnormalities. Unfortunately post cath sustained a small parietal stroke with no major residual neurologic deficits with rapid functional recovery. Blood pressure well controlled on medication but was getting hypotensive at home. 1. CAD For secondary prevention he is on good medical therapy with coreg, atorvastatin and palvix. No symptoms concerning for anaina. Recent echo with normal LVEF. Given his historv of CAD, PAD, and diabetes LDL goal should be less than 55. 2. hypertension Bp has been running low on losartan 25mg daily and carvedilol 6.25mg twice daily. Given sxs of orthostatis will stop losartan and cervedilol. Will start metoprolol 25mg XL given new afib. 3. lower extremity edema His lower extremity edema is multifactorial and is from venous insufficiency, diastolic dysfunction and dependent edema. Given his history of PAD we will defer on compression therapy. NO claudication and edema is better now. needed diuretics. 4. peripheral arterial disease Followed by vascular at [facility], prior L iliac stent and R MICROBIOLOGY TECHNOLOGIST endarterectomy. No claudication. 5. CVA Stable. Mcirovascualr disease. CTA no large vessel occlusion with LORENZA occlusion and distal reconstitution. 6. Diabetic. A 1 c 8.8, CR 1.2. Fup DM closely with PCP. can consider SGL T2i or glp1 a given hyperglycemia CAD etc. Fup labs with PCP and if worse suggest endocribe consult. 7. New afib dx 04/2024 In afib in the office, but is asymptomatic. C/w rate control startegy. Will send eliquis to the [place] pharmacy on [address] in [place]; samples givne. Given OH as noted above will be stopping carvedilol and instead switch to metoprolol 25mg XL. Will also get an ECHO. Given h/o CAD, PAD and afib for now will c/w dual therapy. If any bleeding issues can stop plavix. F/U 3 Months /yohana/ Elisabeth Calle MSN RN CNL Primary Care RN Signed: 05/27/2024 13:40 ELISABETH CALLE [place] [facility] [place] [facility] May 27, 2024 01:26 PM ADMINISTRATIVE NOTE: LOCAL TITLE: FAX/MAIL RECEIVED STANDARD TITLE: ADMINISTRATIVE NOTE DATE OF NOTE: MAY 27, 2024@13:26 ENTRY DATE: MAY 27, 2024@13:27:01 AUTHOR: ELISABETH CALLE EXP COSIGNER: URGENCY: STATUS: COMPLETED FAX/MAIL RECEIVED Has ADDENDA Document Received On: May Document Type: Hospitalization Date of Service: Apr Facility and or Provider: [facility] Contact Information: PCP of Record: ELOINA SAVAGE Next visit with PCP: 05/27/2024 13:30 [facility] PHARM PACT 3 10/12/2024 11:00 [facility] PACT 7 GEOPHYSICAL MANAGER Primary Care May keep copies of this document for up to 14 days and send the original for scanning. [facility] Admit: 05/01/24 D/C: 03/02/25 Hospital Course: 84-year-old male with history of hypertension, CVA, CAD status post stent, PAD status post femoral stent presents with presyncope. # Episodic lightheadedness (R42): Likely multifactorial in the setting of stress, recent infection, dehydration, new onset A-fib His symptoms has resolved Negative for orthostasis Discussed about adequate oral hydration # Atrial fibrillation (I48.91): Patient was found to be in atrial fibrillation with controlled ventricular rate. Admitting provider discussed with Dr. Mccollum. Recommends starting Eliquis. Discussed with cardiology Venus GEOPHYSICAL MANAGER, who recommends continuing Plavix if bleeding risk is not too high given cardiac and femoral stents. Assessed patient's has bled bleeding risk, 3 points for age, prior stroke, Eliquis, 5.8% major bleeding risk. Shared decision making with patient and daughter and we have agreed to continue Plavix. Education given on bleeding risks and monitoring for signs and symptoms of bleeding. Patient has been started on Eliquis 5 mg twice daily, prescription sent to [facility]. I was told by the pharmacist that patient does not have insurance coverage through Medicare so he will have $600 co-pay Discussed this with patient's son, he will get 30-day supply from here and then will follow-up with his [facility] provider for refill Echocardiogram as outpatient # Hypertension (I10): continue losartan # Peripheral arterial disease (I73.9) # CAD (coronary artery disease) (I25.10) * Continue Plavix Follow-up with cardiology and vascular surgery outpatient Disposition; PT recommends home with services Case management has arranged VNA services Discharge plan was discussed with patient's son who was at bedside Discharge Medications: apixaban 5mg 2 times a day Atorvastatin 40mg daily Carvedilol 6.25mg Every 12 hours Clopidogrel 75mg Daily GlipiZIDE 5mg 3 times a day levETIRAcetam 500mg 2 times a day Losartan 25mg Daily Multivitamin Daily Sertraline 25mg Daily at supper Sucralfate 1gm 2 times a day Ubiquinone 100mg Daily D/C with VNA- PT for functional mobility, home exercise program and falls prevention. PCP Follow-Up/Heads-Up Patient is newly diagnosed atrial fibrillation has been started on Eliquis for anticoagulation. Please consider obtaining echocardiogram as outpatient Alert to [facility] please contact for Post D/C F/U visit with PCP /yohana/ Elisabeth ARMSTRONG RN CNL Primary Care RN Signed: 05/27/2024 13:36 Receipt Acknowledged By: 05/27/2024 14:12 /yohana/ BIN CHOI ADVANCED GARAGE MECHANIC 06/03/2024 12:56 /yohana/ Eloina Savage DNP, IRON HANDLER-BC, CNL Primary Care Nurse Practitioner 05/27/2024 ADDENDUM STATUS: COMPLETED spoke to and scheduled appointment. /yohana/ BIN CHOI ADVANCED GARAGE MECHANIC Signed: 05/27/2024 14:13 05/27/2024 ADDENDUM STATUS: COMPLETED ECHO ordered /yohana/ EMMETT VARGAS MS,PA-C PHYSICIAN [employer] GOODS MAKER Signed: 05/27/2024 14:48 ELISABETH CALLE [facility]L [facility]
--- OUTSIDE RECORDS SUMMARY | 2024-06-17 10:18 | XMS_ITS | Patient Health Record ---
Author Organization [facility] Address [address] [place] [address] Care Team Providers Care Ssis Ssrs Developer Name Role Phone Gilbert Francis MD Primary Care Provider Dexter Bundy Unavailable [phone] Allergies No Known Allergies Reason For Referral No Information Medications Medication SIG (Take, Route, Frequency, Duration) Notes Start Date End Date Status Omeprazole Active glipiZIDE Active Aspir-81 Active Losartan Potassium A ctive Atorvastatin Calcium Active Metoprolol Succinate 100 MG 1 capsule Or ally twice a day Active Social History Tobacco Use: Social History Observation Description Date Details (start date - stop date) Never Smoker NA - NA Tobacco Use/Smoking Question Answer Notes Patient is a nonsmoker Alcohol Screen Question Answer Notes Did you have a drink containing alcohol in the p ast year? No Points 0 Interpretation Negative Section Notes: Nonsmoker; no sig alcohol Problems Problem Type SNOMED Code ICD Code Onset Dates Problem Status W/U Status Risk Notes Problem Gastroesophageal reflux disease (885044529) Gastroesophageal reflux disease (K21.9) Active confirmed Problem 707859102 Gastroesophageal reflux disease, unspecified whether esophagitis present (K21.9) Active confirmed Problem 72102962 Esophageal dysphagia (R13.19) Active confirmed Plan Of Treatment Pending Test Test Name Order Date Pathology 06/14/2022 Future Test Test Name Order Date UPPER GI ENDOSCOPY [place] DILATION OF ESOPH 05/24/2022 Insurance Providers Payer Name Payer Address Payer Phone Subscriber Number Group Number Insured Name Patient Relationship to Insured Coverage Start Date Coverage End Date MEDICARE OF [employer] [address] [place] [id number] DEXTER MORAN Self - patient is the insured Medical (General) History Medical History History ICD Code NIDDM Hypertension Hypercholesterolemia Denies [place],DM,CVA,Lung disease,renal dise ase Colonoscopy with tubular adenoma [place] [address] [place] Peripheral vascular disease with procedu res as below Surgical History Surgery Date(Month/Year) Appendectomy Vascular--Bilateral LE's wit h Dr. Oscar-left iliac artery stenting in 2019; right lower extremity vascular surgery in 2019 Right Inguinal Hernia CCY
--- OUTSIDE RECORDS SUMMARY | 2024-06-17 10:18 | XMS_ITS ---
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 Date/Time Encounter Type Encounter Description Reason Provider Source May 27, 2024 01:30 PM MTMS BY PHARM ADDL 15 MIN CLINICAL PHARMACY ICD-10-CM E11.9 Type 2 diabetes mellitus without complications ADAIR APODACA Encounter Template Text not used by [place] Assessments - Encounter Diagnoses This section includes the primary and secondary diagnoses documented for the Encounter. Date/Time Primary/Secondary Diagnosis Diagnosis Name Provider Source May 28, 2024 10:14 AM PRIMARY Type 2 diabetes mellitus without complications ILDEFONSOADAIR FLAHERTY [facility] Plan of Treatment: Future Appointments (+ 6 months) and Future Tests (+/- 45 days) The Plan of Treatment section includes future care activities for the patient from [facility] This section includes future appointments and future orders which are active, pending or scheduled. Future Appointments This section includes appointments that were scheduled to occur 6 months from the date of the Encounter, up to a maximum of 20 appointments. The data comes from all [place] treatment [facility]. Appointment Date/Time Appointment Type Appointme nt Facility Name Jun 10, 2024 11:30 AM [facility] Jun 10, 2024 01:30 PM [facility] Jun 18, 2024 01:00 PM [facility] Jul 22, 2024 11:30 AM AMBULATORY - MEDICINE [facility] August 19, 2024 10:40 AM AMBULATORY - MEDICINE [facility] Oct 12, 2024 11:00 AM AMBULATORY - MEDICINE [facility] Oct 28, 2024 04:00 PM AMBULATORY - NONE [facility] Active, Pending, and Scheduled Orders This section includes a listing of several types of active, pending, and scheduled orders, including clinic medications orders, diagnostic test orders, procedure orders and consult orders; where the start date of the order is 45 days before the date of the Encounter or 45 days after the date of theEncounter. The data comes from all [facility]. Test Date/Time Test Type Test Details Facility Name Jun 10, 2024 01:02 PM Consult Order COMMUNITY CARE-CARDIOLOGY Cons [employer] [facility] Jun 10, 2024 01:02 PM Consult Order COMMUNITY CARE-PULMONARY [employer] [facility] Lab Results: +/- 30 days of the encounter This section includes the Chemistry and Hematology Lab Results on record with [place] for the patient. Radiology Reports and Pathology Reports are provided separately, in subsequent sections. Lab Results This section contains the Chemistry/Hematology Results that were resulted 30 days before or 30 daysafter the date of the Encounter. Date/Time Source Result Type Result - Unit Interpretation Reference Range Comment May 20, 2024 01:32 PM [facility] CBC Specimen Type: BLOOD No comment entered. Ordering Provider: RHONDA MOORE AM Report Released Date/Time: Mar 26, 2024 03:22 PM Reporting Lab: [address] [address] Performing Lab: [address] [address] WBC 6.58 10*3/uL 4.50-11.00 RBC 3.94 10*6/uL L 4.23-5.66 HGB 11.2 g/dL L 12.8-17 HCT 33.9 L 39.2-50.4 MCV 86.0 fL 82-99 MCHC 33.0 g/dL 30.8-35.1 PLT 226 10*3/uL 140-360 RDW-CV 14.2 12.0-16.0 MCH 28.4 pg 26.2-32.6 May 20, 2024 01:32 PM [facility] LIPID PANEL, NON FASTING Specimen Type: SERUM Comment: *UREA NITROGEN Not Performed: May 20, 2024@15:11 by [id number] *PHYSICIAN INDUSTRIAL Reason: DUP *GLUCOSE Not Performed: May 20, 2024@15:11 by [id number] *PHYSICIAN INDUSTRIAL Reason: DUP *SODIUM Not Performed: May 20, 2024@15:11 by [id number] *PHYSICIAN INDUSTRIAL Reason: DUP *POTASSIUM Not Performed: May 20, 2024@15:11 by [id number] *PHYSICIAN INDUSTRIAL Reason: DUP *CHLORIDE Not Performed: May 20, 2024@15:11 by [id number] *PHYSICIAN INDUSTRIAL Reason: DUP *CO2 Not Performed: May 20, 2024@15:11 by [id number] *PHYSICIAN INDUSTRIAL Reason: DUP *CREATININE (eGFR 2020) Not Performed: May 20, 2024@15:11 by [id number] *PHYSICIAN INDUSTRIAL Reason: DUP Ordering Provider: RHONDA MOORE AM Report Released Date/Time: Mar 26, 2024 03:22 PM Reporting Lab: [address] [address] Performing Lab: [address] [address] CHOLESTEROL 141 mg/dL TRIGLYCERIDE 205 mg/dL H 0-150 LDL calculated 57 mg/dL 0-129 CHOL/HDL 3.3 HDL CHOLESTEROL 43 mg/dL 40-60 May 20, 2024 01:32 PM [facility] LIVER FUNCTION Specimen Type: SERUM Comment: *UREA NITROGEN Not Performed: May 20, 2024@15:11 by [id number] *PHYSICIAN INDUSTRIAL Reason: DUP *GLUCOSE Not Performed: May 20, 2024@15:11 by [id number] *PHYSICIAN INDUSTRIAL Reason: DUP *SODIUM Not Performed: May 20, 2024@15:11 by [id number] *PHYSICIAN INDUSTRIAL Reason: DUP *POTASSIUM Not Performed: May 20, 2024@15:11 by [id number] *PHYSICIAN INDUSTRIAL Reason: DUP *CHLORIDE Not Performed: May 20, 2024@15:11 by [id number] *PHYSICIAN INDUSTRIAL Reason: DUP *CO2 Not Performed: May 20, 2024@15:11 by [id number] *PHYSICIAN INDUSTRIAL Reason: DUP *CREATININE (eGFR 2020) Not Performed: May 20, 2024@15:11 by [id number] *PHYSICIAN INDUSTRIAL Reason: DUP Ordering Provider: RHONDA MOORE AM Report Released Date/Time: Mar 26, 2024 03:22 PM Reporting Lab: [address] [address] Performing Lab: [address] [address] PROTEIN,TOTAL 6.7 g/dL 6.0-8.3 ALBUMIN 3.8 g/dL 3.5-5.0 ALKALINE PHOSPHATASE 83 U/L 40-150 AST 13 U/L 5-34 ALT 15 U/L BILIRUBIN, TOTAL 0.4 mg/dL 0.2-1.2 May 20, 2024 01:32 PM [facility] PT & INR (PROTIME) Specimen Type: PLASMA No comment entered. Ordering Provider: RHONDA MOORE AM Report Released Date/Time: Mar 26, 2024 03:22 PM Reporting Lab: [address] [address] Performing Lab: [address] [address] INR 1.5 PROTIME 16.0 s H 10.0-13.1 May 20, 2024 01:32 PM [facility] HEMOGLOBIN A1C PANEL Specimen Type: BLOOD Comment: Values obtained from A1C measurements can vary. For atypical A1C assays, a reported value of 7.0 could actually be between 6.72 and 7.28 if measured by a reference method. A reported value of 9.0 could actually be between 8.73 and 9.27. Ref: http://www.ngs p.org/CAPdata. asp Ordering Provider: RHONDA MOORE AM Report Released Date/Time: Mar 26, 2024 03:22 PM Reporting Lab: [address] [address] Performing Lab: [address] [address] HEMOGLOBIN A1C 8.6 H 4.0-5.6 May 20, 2024 01:32 PM [facility] BASIC METABOLIC PANEL (non-fasting) Specimen Type: SERUM No comment entered. Ordering Provider: ADAIR APODACA Report Released Date/Time: May 18, 2024 08:18 AM Reporting Lab: [address] [address] Performing Lab: [address] [address] UREA NITROGEN 17 mg/dL 7-25 GLUCOSE 158 mg/dL H 65-100 SODIUM 137 mmol/L 135-145 POTASSIUM 4.1 mmol/L 3.5-5.0 CHLORIDE 106 mmol/L 100-110 CO2 24 meq/L 20-30 CREATININE, Serum 0.83 mg/dL 0.50-1.40 eGFR(CKD-EPI 2020) 86 mL/min >60 May 20, 2024 01:32 PM [facility] MICROALBUMIN CREATININE RATIO PANEL Specimen Type: URINE No comment entered. Ordering Provider: ADAIR APODACA Report Released Date/Time: May 18, 2024 08:18 AM Reporting Lab: [facility] [address] [facility] [address] Performing Lab: [facility] [address] [facility] [address] MICROALBUMIN/C REATININE RATIO 19.1 mg/g 0-29.9 MICROALBUMIN,Q UANTITATIVE 1.5 mg/dL RR UNAVAIL CREATININE URINE 78.41 mg/dL Vital Signs: All taken on the encounter date This section contains inpatient and outpatient Vital Signs collected on the date of the Encounter. Date/Time Temperature Pulse Blood Pressure Respiratory Rate SP02 Pain Height Weight Body Mass Index Source May 27, 2024 02:01 PM 76 120/71 [facility] Social History: Smoking Status (Most current) and Tobacco Use (All prior to encounter date) This section includes the most current, and the historical, smoking and tobacco- related health factors from the [place] facility where the Encounter took place. Current Smoking Status This section includes the most current smoking, or tobacco-related health factor, from the [place] facility where the Encounter took place. Date/Time Current Smoking Status Comment Kaley ity August 16, 2023 11:14 AM [facility]-TOBACCO FORMER USER [facility] Tobacco Use History This section includes a history of the smoking, or tobacco-related health factors, that were collected on or before the date of the Encounter. The data comes from the [place] facility where the Encounter took place. Date/Time Smoking Status/Tobacco Use Comment F actong August 16, 2023 11:14 AM [place]-TOBACCO QUIT 15 YRS OR MORE [facility] Encounter Notes: All associated encounter notes This section contains the clinical notes associated to the Encounter. Date/Time Encounter Note(s) Provider Source May 27, 2024 01:32 PM PHARMACY CONSULT: LOCAL TITLE: CONSULT REPORT/PHARMACY STANDARD TITLE: PHARMACY CONSULT DATE OF NOTE: MAY 27, 2024@13:32 ENTRY DATE: MAY 27, 2024@13:32:50 AUTHOR: ADAIR APODACA EXP COSIGNER: URGENCY: STATUS: COMPLETED DEXTER MORAN, 84 yo WHITE MALE, presents for [id number] for initial visit for diabetes medication management. Today, pt presents with his son. HE reports DM x 5-7 years . No fm hx , no A.O. exposure. He was seeing , will likely switch to just [facility] since is retiring soon. His son notes cardiology is changing is carvedilol to metoprolol and DC losartan d/t hypotension. Orders were received, waiting on notes. He had afibb in hospital a few months ago. Cardio also wants to add DOAC. Pt denies any current issues with constipation, notes sometimes loose stools. Denies any personal or fm hx of MTC or MENS2. Denies any personal hx of pancreatitis, gastroparesis, had gallbladder removed. He notes fairly frequent urination during the day - every 1-2 hours ad at night time will urinate several times if not wearing sleep apnea mask. Denies any recent sx of hypoglycemia. Current diabetes medications: - glipizide 10 mg BID - takes 10 to 15 mins before a meal Previous diabetes medications: - metformin diarrhea Medication Adherence: - sometimes forgets Diet Patterns: patient eats on avg. 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 SMB mg/dL - 2/20/25 AM SMBG assessment: did not bring glucometer HYPOGLYCEMIC Events: 0 in last 2 weeks - Hypoglycemia recognition & treatment reviewed: Yes Allergies/ADR: Patient has answered NKA Active and Recently Outpatient Medications (including Supplies): Active Outpatient Medications Status 1) ALBUTEROL 90MCG (CFC-F) 200D ORAL INHL INHALE 2 PUFFS BY ACTIVE MOUTH EVERY 4 HOURS NEEDED Indication: FOR BRONCHOSPASM 2) ATORVASTATIN CALCIUM 80MG TAB TAKE ONE-HALF TABLET BY MOUTH ACTIVE (S) ONCE DAILY Indication: FOR HIGH CHOLESTEROL 3) CLOPIDOGREL BISULFATE 75MG TAB TAKE ONE TABLET BY MOUTH ONCE ACTIVE (S) DAILY Indication: TO PREVENT BLOOD CLOTS 4) FLUTICASONE PROP 50MCG 120D NASAL INHL INSTILL 1 SPRAY INTO ACTIVE EACH NOSTRIL TWICE DAILY Indication: FOR NASAL IRRITATION/INFLAMMATION 5) GLIPIZIDE 10MG TAB TAKE ONE TABLET BY MOUTH TWICE DAILY ACTIVE (S) Indication: FOR TYPE 2 DIABETES MELLITUS 6) LEVETIRACETAM 500MG TAB TAKE ONE TABLET BY MOUTH TWICE DAILY ACTIVE Indication: FOR PARTIAL SEIZURES 7) LOSARTAN 25MG TAB TAKE ONE TABLET BY MOUTH ONCE DAILY FOR ACTIVE (S) BLOOD PRESSURE/HEART Indication: FOR HIGH BLOOD PRESSURE 8) MONTELUKAST NA 10MG TAB TAKE ONE TABLET BY MOUTH ONCE DAILY ACTIVE FOR ASTHMA Indication: FOR CONTROLLER MEDICATION FOR ASTHMA 9) OMEPRAZOLE 20MG EC CAP TAKE TWO CAPSULES BY MOUTH TWICE ACTIVE (S) DAILY BEFORE A MEAL Indication: FOR EXCESSIVE PRODUCTION OF STOMACH ACID 10) SERTRALINE HCL 50MG TAB TAKE ONE-HALF TABLET BY MOUTH ONCE ACTIVE (S) DAILY Indication: FOR MAJOR DEPRESSIVE DISORDER 11) SUCRALFATE 1GM TAB TAKE ONE TABLET BY MOUTH TWICE DAILY ACTIVE NEEDED Indication: FOR ULCER Inactive Outpatient Medications Status 1) AEROCHAMBER Z-STAT PLUS CHAMBER NEEDED 2) ATORVASTATIN CALCIUM 80MG TAB TAKE ONE-HALF TABLET BY MOUTH DISCONTINUED ONCE DAILY Indication: FOR HIGH CHOLESTEROL 3) CARVEDILOL 6.25MG TAB TAKE ONE TABLET BY MOUTH TWICE DAILY DISCONTINUED Indication: FOR HIGH BLOOD PRESSURE 4) CLOPIDOGREL BISULFATE 75MG TAB TAKE ONE TABLET BY MOUTH ONCE DISCONTINUED DAILY Indication: TO PREVENT BLOOD CLOTS 5) GLIPIZIDE 10MG TAB TAKE ONE TABLET BY MOUTH TWICE DAILY DISCONTINUED Indication: FOR TYPE 2 DIABETES MELLITUS 6) LEVETIRACETAM 750MG TAB TAKE ONE TABLET BY MOUTH TWICE DAILY DISCONTINUED (EDIT) Indication: FOR PARTIAL SEIZURES 7) LOSARTAN 25MG TAB TAKE ONE TABLET BY MOUTH ONCE DAILY FOR DISCONTINUED BLOOD PRESSURE/HEART Indication: FOR HIGH BLOOD PRESSURE 8) MONTELUKAST NA 10MG TAB TAKE ONE TABLET BY MOUTH ONCE DAILY DISCONTINUED FOR ASTHMA Indication: FOR CONTROLLER MEDICATION FOR ASTHMA 9) OMEPRAZOLE 20MG EC CAP TAKE TWO CAPSULES BY MOUTH TWICE DISCONTINUED DAILY BEFORE A MEAL Indication: FOR EXCESSIVE PRODUCTION OF STOMACH ACID 10) SERTRALINE HCL 50MG TAB TAKE ONE-HALF TABLET BY MOUTH ONCE DISCONTINUED DAILY Indication: FOR MAJOR DEPRESSIVE DISORDER 21 Total Medications Labs: CHEM 7 TREND LAB CUMULATIVE SELECTED Collection DT Spec GLUCOSE BUN CREATIN Sodium K+/Pot CL CO2 05/20/2024 13:32 SERUM 158 H 17 0.83 137 4.1 106 24 10/16/2023 15:53 SERUM 121 H 25 0.90 135 4.1 104 21 LAB CUMULATIVE SELECTED 2 No selection items chosen for this component. CHEM 7 Results Collection DT Spec Sodium K+/Pot CL CO2 GLUCOSE BUN 05/20/2024 13:32 SERUM 137 4.1 106 24 158 H 17 10/16/2023 15:53 SERUM 135 4.1 104 21 121 H 25 eGFR CKD-EPI 202005/20/24 13:32 86 SERUM LIVER PANEL TREND Collection DT Spec AST ALT T BILI ALK MADELEINE T. PROT ALBUMIN 05/20/2024 13:32 SERUM 13 15 0.4 83 6.7 3.8 10/16/2023 15:53 SERUM 17 21 0.4 86 6.6 3.7 HEMOGLOBIN A1C TREND Collection DT Spec HGBA1c 05/20/2024 13:32 BLOOD 8.6 H 10/16/2023 15:53 BLOOD 8.0 H LIPID PANEL TREND Collection DT Spec CHOL HDL CHO/HDL LDL-c TRIG 05/20/2024 13:32 SERUM 141 43 3.3 57 205 H 10/16/2023 15:53 SERUM 163 47 3.5 86 148 Vitals: Ht: 67 in [170.2 cm] (04/13/2024 09:56) Wt: 218 lb [98.88 kg] (04/13/2024 09:56) BMI: BMI: 34.2 BP: 138/78 (04/13/2024 10:47) HR: 64 (04/13/2024 09:56) Assessment: DIABETES: -A1c is above goal of <8% (8.6 % 05/20/24) CARDIOVASCULAR: Goal BP = <130/80 mmHg or -Current BP is 120/71 -Lipids: at goal PREVENTIVE CARE: - Most recent visit to Podiatry: does not - Most recent visit to Optometry: in [place] Plan: - Medication management - CONTINUE - glipizide 10 mg BID - recommended 30 mins prior to meals - Will place consult for semaglutide once eye exam records are received. - Would derfer from SGLT2i based on ADR, age and risk of dehydration, and hypotension - Continue to SMBG x/day - Monitor for s/sx hypoglycemia and contact clinic if BG consistently <70mg/dL - Healthy dietary and lifestyle modifications encouraged - Repeat A1c: TBD based on tx change EDUCATION -A shared decision-making approach was used in the development of this plan, involving the , clinician, and any caregivers present. The was provided the opportunity express questions or concerns, and the plan was adjusted as needed to address these concerns. -Reviewed with any new medications, changes to the medication list, education, and plan from today's visit. Patient (and/or caregiver) verbalized understanding of the plan, including possible known risks and benefits, and had no additional questions. RTC:06/10/24 @1330 Time Spent: 43 mins PBM PharmD Pharmacotherapy Rem V12: PHARMACIST INTERVENTIONS: TYPE 2 DIABETES MELLITUS Medication monitoring, no dosage change required, continue to monitor and assess /yohana/ ADAIR APODACA PHARMD,[facility] CLINICAL PHARMACY PRACTITIONER Signed: 05/28/2024 10:14 ADAIR APODACA [facility]
--- OUTSIDE RECORDS SUMMARY | 2024-06-17 10:18 | XMS_ITS ---
Author Name [facility] of [facility] ([place]) Organization [facility] [place] Address [address] [place] [address] Care Team Providers Care Coal Chemist Name Role Phone ELOINA MOORE [facility] Insurance Providers: All historical and current Section [...] PART A Feb 06, 2005 PART A [id number] DEXTER MORAN PATIENT MEDICARE (WNR) MEDICARE (M) PART B Feb 06, 2005 PART B [id number] DEXTER MORAN PATIENT Selected Encounter This section includes the information on record at MD for the Encounter. Date/Time Encounter Type Encounter Description Reason Provider Source Jun 10, 2024 01:30 PM MTMS BY PHARM YARI 15 MIN CLINICAL PHARMACY ICD-10-CM E11.9 Type 2 diabetes mellitus without complications ADAIR APODACA Encounter Template Text not used by MD Assessments - Encounter Diagnoses This section includes the primary and secondary diagnoses documented for the Encounter. Date/Time Primary/Secondary Diagnosis Diagnosis Name Provider Source Jun 11, 2024 12:07 PM PRIMARY Type 2 diabetes mellitus without complications [facility] Plan of Treatment: Future Appointments (+ 6 months) and Future Tests (+/- 45 days) The Plan of Treatment section includes future care activities for the patient from [facility]. This section includes future appointments and future orders which are active, pending or scheduled. Future Appointments This section includes appointments that were scheduled to occur 6 months from the date of the Encounter, up to a maximum of 20 appointments. The data comes from all [facility]. Appointment Date/Time Appointment Type Appointme nt Facility Name Jun 18, 2024 01:00 PM AMBULATORY - REHAB MEDICIN E MD CNTRL WSTRN [facility] Jul 22, 2024 11:30 AM AMBULATORY - MEDICINE [facility] NTRL TRN [facility] August 19, 2024 10:40 AM AMBULATORY - MEDICINE [facility] N[facility]L [facility] Oct 12, 2024 11:00 AM AMBULATORY - [facility]ICINE [facility] Oct 28, 2024 04:00 PM [facility] Active, Pending, and Scheduled Orders This section includes a listing of several types of active, pending, and scheduled orders, including clinic medications orders, diagnostic test orders, procedure orders and consult orders; where the start date of the order is 45 days before the date of the Encounter or 45 days after the date of theEncounter. The data comes from all [facility]. Test Date/Time Test Type Test Details Facility Name Jun 10, 2024 01:02 PM Consult Order COMMUNITY CARE-CARDIOLOGY Cons Electric Mule Operator's Choice [facility] Jun 10, 2024 01:02 PM Consult Order COMMUNITY CARE-PULMONARY Cons Electric Mule Operator's Choice [facility] Lab Results: +/- 30 days of the encounter This section includes the Chemistry and Hematology Lab Results on record with MD for the patient. Radiology Reports and Pathology Reports are provided separately, in subsequent sections. Lab Results This section contains the Chemistry/Hematology Results that were resulted 30 days before or 30 daysafter the date of the Encounter. Date/Time Source Result Type Result - Unit Interpretation Reference Range Comment May 20, 2024 01:32 PM [facility] CBC Specimen Type: BLOOD No comment entered. Ordering Provider: RHONDA MOORE AM Report Released Date/Time: Mar 26, 2024 03:22 PM Reporting Lab: [facility] [address] [address] Performing Lab: [facility] [address] [address] WBC 6.58 10*3/uL 4.50-11.00 RBC 3.94 10*6/uL L 4.23-5.66 HGB 11.2 g/dL L 12.8-17 HCT 33.9 L 39.2-50.4 MCV 86.0 fL 82-99 MCHC 33.0 g/dL 30.8-35.1 PLT 226 10*3/uL 140-360 RDW-CV 14.2 12.0-16.0 MCH 28.4 pg 26.2-32.6 May 20, 2024 01:32 PM [facility] LIPID PANEL, NON FASTING Specimen Type: SERUM Comment: *UREA NITROGEN Not Performed: May 20, 2024@15:11 by [id number] *LEAD PRODUCER Reason: DUP *GLUCOSE Not Performed: May 20, 2024@15:11 by [id number] *LEAD PRODUCER Reason: DUP *SODIUM Not Performed: May 20, 2024@15:11 by [id number] *LEAD PRODUCER Reason: DUP *POTASSIUM Not Performed: May 20, 2024@15:11 by [id number] *LEAD PRODUCER Reason: DUP *CHLORIDE Not Performed: May 20, 2024@15:11 by [id number] *LEAD PRODUCER Reason: DUP *CO2 Not Performed: May 20, 2024@15:11 by [id number] *LEAD PRODUCER Reason: DUP *CREATININE (eGFR 2020) Not Performed: May 20, 2024@15:11 by [id number] *LEAD PRODUCER Reason: DUP Ordering Provider: RHONDA MOORE AM Report Released Date/Time: Mar 26, 2024 03:22 PM Reporting Lab: [address] [address] Performing Lab: [address] [place] [address] CHOLESTEROL 141 mg/dL TRIGLYCERIDE 205 mg/dL H 0-150 LDL calculated 57 mg/dL 0-129 CHOL/HDL 3.3 HDL CHOLESTEROL 43 mg/dL 40-60 May 20, 2024 01:32 PM [facility] LIVER FUNCTION Specimen Type: SERUM Comment: *UREA NITROGEN Not Performed: May 20, 2024@15:11 by [id number] *LEAD PRODUCER Reason: DUP *GLUCOSE Not Performed: May 20, 2024@15:11 by [id number] *LEAD PRODUCER Reason: DUP *SODIUM Not Performed: May 20, 2024@15:11 by [id number] *LEAD PRODUCER Reason: DUP *POTASSIUM Not Performed: May 20, 2024@15:11 by [id number] *LEAD PRODUCER Reason: DUP *CHLORIDE Not Performed: May 20, 2024@15:11 by [id number] *LEAD PRODUCER Reason: DUP *CO2 Not Performed: May 20, 2024@15:11 by [id number] *LEAD PRODUCER Reason: DUP *CREATININE (eGFR 2020) Not Performed: May 20, 2024@15:11 by [id number] *LEAD PRODUCER Reason: DUP Ordering Provider: RHONDA MOORE AM Report Released Date/Time: Mar 26, 2024 03:22 PM Reporting Lab: [address] [address] Performing Lab: [address] [address] PROTEIN,TOTAL 6.7 g/dL 6.0-8.3 ALBUMIN 3.8 g/dL 3.5-5.0 ALKALINE PHOSPHATASE 83 U/L 40-150 AST 13 U/L 5-34 ALT 15 U/L BILIRUBIN, TOTAL 0.4 mg/dL 0.2-1.2 May 20, 2024 01:32 PM [facility] PT & INR (PROTIME) Specimen Type: PLASMA No comment entered. Ordering Provider: RHONDA MOORE AM Report Released Date/Time: Mar 26, 2024 03:22 PM Reporting Lab: [address] [address] Performing Lab: [facility] [address] [address] INR 1.5 PROTIME 16.0 s H 10.0-13.1 May 20, 2024 01:32 PM [facility] HEMOGLOBIN A1C PANEL Specimen Type: BLOOD [...] Mar 26, 2024 03:22 PM Reporting Lab: [address] [address] Performing Lab: [address] [address] HEMOGLOBIN A1C 8.6 H 4.0-5.6 May 20, 2024 01:32 PM [facility] BASIC METABOLIC PANEL (non-fasting) Specimen Type: SERUM No comment entered. Ordering Provider: ADAIR APODACA Report Released Date/Time: May 18, 2024 08:18 AM Reporting Lab: [address] [address] Performing Lab: [address] [address] UREA NITROGEN 17 mg/dL 7-25 GLUCOSE 158 mg/dL H 65-100 SODIUM 137 mmol/L 135-145 POTASSIUM 4.1 mmol/L 3.5-5.0 CHLORIDE 106 mmol/L 100-110 CO2 24 meq/L 20-30 CREATININE, Serum 0.83 mg/dL 0.50-1.40 eGFR(CKD-EPI 2020) 86 mL/min >60 May 20, 2024 01:32 PM [facility] MICROALBUMIN CREATININE RATIO PANEL Specimen Type: URINE No comment entered. Ordering Provider: ADAIR APODACA Report Released Date/Time: May 18, 2024 08:18 AM Reporting Lab: [facility] [address] [facility] [address] Performing Lab: [facility] [address] [facility] [address] MICROALBUMIN/C REATININE RATIO 19.1 mg/g 0-29.9 MICROALBUMIN,Q UANTITATIVE 1.5 mg/dL RR UNAVAIL CREATININE URINE 78.41 mg/dL Vital Signs: All taken on the encounter date This section contains inpatient and outpatient Vital Signs collected on the date of the Encounter. Date/Time Temperature Pulse Blood Pressure Respiratory Rate SP02 Pain Height Weight Body Mass Index Source Jun 10, 2024 11:30 AM 98.1 76 140/80 20 99 8 67 219 34 [facility] Social History: Smoking Status (Most current) and Tobacco Use (All prior to encounter date) This section includes the most current, and the historical, smoking and tobacco- related health factors from the MD facility where the Encounter took place. Current Smoking Status This section includes the most current smoking, or tobacco-related health factor, from the MD facility where the Encounter took place. Date/Time Current Smoking Status Comment Facil ity August 16, 2023 11:14 AM VA-TOBACCO FORMER USER [facility] Tobacco Use History This section includes a history of the smoking, or tobacco-related health factors, that were collected on or before the date of the Encounter. The data comes from the MD facility where the Encounter took place. Date/Time Smoking Status/Tobacco Use Comment F actong August 16, 2023 11:14 AM MD-TOBACCO QUIT 15 YRS OR MORE [facility] Encounter Notes: All associated encounter notes This section contains the clinical notes associated to the Encounter. Date/Time Encounter Note(s) Provider Source Jun 10, 2024 01:27 PM PHARMACY OUTPATIEN T NOTE: LOCAL TITLE: PHARMACY CLINIC NOTE STANDARD TITLE: PHARMACY OUTPATIENT NOTE DATE OF NOTE: JUN 10, 2024@13:27 ENTRY DATE: JUN 10, 2024@13:27:54 AUTHOR: ADAIR APODACA COSIGNER: URGENCY: STATUS: COMPLETED JAIDA JOSEFINA MORAN, 84 yo WHITE MALE, presents for [id number] for follow up visit for diabetes medication management. Pt was last seen in office on 05/27/24 in which consult for semaglutide was approved. Today, pt presents with his son. We review admin process and storage of medication. We reviewed that medication will only be dispensed after review of optometry exam. Pt reports some what quick BM after meals- no diarrhea or constipation at baseline. Current diabetes medications: - glipizide 10 mg BID - takes 10 to 15 mins before a meal Previous diabetes medications: - metformin diarrhea Medication Adherence: - sometimes forgets Diet Patterns: patient eats on avg. 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 - Would derfer from SGLT2i based on ADR, age and risk of dehydration, and hypotension - Continue to SMBG - increase SMBG to prior to lunch and 2 hours after dinner - Monitor for s/sx hypoglycemia and contact clinic if BG consistently <70mg/dL - Reviewed 15-15 rule and provided handout - Healthy dietary and lifestyle modifications encouraged - Repeat A1c: TBD based on tx change EDUCATION -A shared decision-making approach was used in the development of this plan, involving the , clinician, and any caregivers present. The was provided the opportunity express questions or concerns, and the plan was adjusted as needed to address these concerns. -Reviewed with Gaylord any new medications, changes to the medication list, education, and plan from today's visit. Patient (and/or caregiver) verbalized understanding of the plan, including possible known risks and benefits, and had no additional questions. RTC:07/22/24 @1130 Time Spent: 30 mins PBM PharmD Pharmacotherapy Rem V12: PHARMACIST INTERVENTIONS: TYPE 2 DIABETES MELLITUS Medication Intervention(s) Initiate new medication /yohana/ ADAIR APODACA PHARMD,BCPS CLINICAL PHARMACY PRACTITIONER Signed: 06/11/2024 12:08 ADAIR APODACA [facility]
--- OUTSIDE RECORDS SUMMARY | 2024-06-17 10:18 | XMS_ITS ---
Author Name Department [place] Organization [place] Address [address] [place] [address] Care Team Providers Care Biological Aide Name Role Phone ELOINA MOORE Primary Care Provider [facility] Insurance Providers: All historical and current Section [...] PART A Feb 06, 2005 PART A [id number] DEXTER MORAN PATIENT MEDICARE (WNR) MEDICARE (M) PART B Feb 06, 2005 PART B [id number] [id number] DEXTER MORAN PATIENT Selected Encounter This section includes the information on record at [place] for the Encounter. Date/Time Encounter Type Encounter Description Reason Pro vider Source May 29, 2024 11:43 AM Outpatient Encounter ADMIN PAT ACTIVTIES (MASNONCT) IHE Encounter Template Text not used by [place] Plan of Treatment: Future Appointments (+ 6 [...] 20 appointments. The data comes from all [facility]. Appointment Date/Time Appointment Type Appointme nt Facility Name Jun 10, 2024 11:30 AM AMBULATORY - MEDICINE [place] [facility] [place] [facility] Jun 10, 2024 01:30 PM AMBULATORY - MEDICINE [facility] [place] [facility] Jun 18, 2024 01:00 PM AMBULATORY - REHAB MEDICIN E [facility] [place] [facility] Jul 22, 2024 11:30 AM AMBULATORY - MEDICINE [facility] [place] [facility] August 19, 2024 10:40 AM AMBULATORY - MEDICINE [facility] [place] [facility] Oct 12, 2024 11:00 AM AMBULATORY - MEDICINE [facility] [place] [facility] Oct 28, 2024 04:00 PM [facility] Active, Pending, and Scheduled Orders This section includes a listing of several types of active, pending, and scheduled orders, including clinic medications orders, diagnostic test orders, procedure orders and consult orders; where the start date of the order is 45 days before the date of the Encounter or 45 days after the date of theEncounter. The data comes from all [facility]. Test Date/Time Test Type Test Details Facility Name Jun 10, 2024 01:02 PM Consult Order COMMUNITY CARE-CARDIOLOGY Cons Baseball Sewer Hand's Choice [facility] CNTR[facility] [facility] Jun 10, 2024 01:02 PM Consult Order COMMUNITY CARE-PULMONARY Cons Baseball Sewer Hand's Choice [facility] Lab Results: +/- 30 days of the encounter This section includes the Chemistry and Hematology Lab Results on record with [place] for the patient. Radiology Reports and Pathology Reports are provided separately, in subsequent sections. Lab Results This section contains the Chemistry/Hematology Results that were resulted 30 days before or 30 daysafter the date of the Encounter. Date/Time Source Result Type Result - Unit Interpretation Reference Range Comment May 20, 2024 01:32 PM [facility] CBC Specimen Type: BLOOD No comment entered. Ordering Provider: RHONDA MOORE AM Report Released Date/Time: Mar 26, 2024 03:22 PM Reporting [facility] [address] [facility] [address] Performing Lab: [facility] [address] [facility] [address] WBC 6.58 10*3/uL 4.50-11.00 RBC 3.94 10*6/uL L 4.23-5.66 HGB 11.2 g/dL L 12.8-17 HCT 33.9 L 39.2-50.4 MCV 86.0 fL 82-99 MCHC 33.0 g/dL 30.8-35.1 PLT 226 10*3/uL 140-360 RDW-CV 14.2 12.0-16.0 MCH 28.4 pg 26.2-32.6 May 20, 2024 01:32 PM [facility] LIPID PANEL, NON FASTING Specimen Type: SERUM Comment: *UREA NITROGEN Not Performed: May 20, 2024@15:11 by [id number] *REHABILITATION ASSISTANT Reason: DUP *GLUCOSE Not Performed: May 20, 2024@15:11 by [id number] *REHABILITATION ASSISTANT Reason: DUP *SODIUM Not Performed: May 20, 2024@15:11 by [id number] *REHABILITATION ASSISTANT Reason: DUP *POTASSIUM Not Performed: May 20, 2024@15:11 by [id number] *REHABILITATION ASSISTANT Reason: DUP *CHLORIDE Not Performed: May 20, 2024@15:11 by [id number] *REHABILITATION ASSISTANT Reason: DUP *CO2 Not Performed: May 20, 2024@15:11 by [id number] *REHABILITATION ASSISTANT Reason: DUP *CREATININE (eGFR 2020) Not Performed: May 20, 2024@15:11 by [id number] *REHABILITATION ASSISTANT Reason: DUP Ordering Provider: RHONDA MOORE AM Report Released Date/Time: Mar 26, 2024 03:22 PM Reporting Lab: [facility] [address] [facility] [address] Performing Lab: [address] [address] CHOLESTEROL 141 mg/dL TRIGLYCERIDE 205 mg/dL H 0-150 LDL calculated 57 mg/dL 0-129 CHOL/HDL 3.3 HDL CHOLESTEROL 43 mg/dL 40-60 May 20, 2024 01:32 PM [facility] LIVER FUNCTION Specimen Type: SERUM Comment: *UREA NITROGEN Not Performed: May 20, 2024@15:11 by [id number] *REHABILITATION ASSISTANT Reason: DUP *GLUCOSE Not Performed: May 20, 2024@15:11 by [id number] *REHABILITATION ASSISTANT Reason: DUP *SODIUM Not Performed: May 20, 2024@15:11 by [id number] *REHABILITATION ASSISTANT Reason: DUP *POTASSIUM Not Performed: May 20, 2024@15:11 by [id number] *REHABILITATION ASSISTANT Reason: DUP *CHLORIDE Not Performed: May 20, 2024@15:11 by [id number] *REHABILITATION ASSISTANT Reason: DUP *CO2 Not Performed: May 20, 2024@15:11 by [id number] *REHABILITATION ASSISTANT Reason: DUP *CREATININE (eGFR 2020) Not Performed: May 20, 2024@15:11 by [id number] *REHABILITATION ASSISTANT Reason: DUP Ordering Provider: RHONDA MOORE AM Report Released Date/Time: Mar 26, 2024 03:22 PM Reporting Lab: [address] [address] Performing Lab: [address] [address] PROTEIN,TOTAL 6.7 g/dL 6.0-8.3 ALBUMIN 3.8 g/dL 3.5-5.0 ALKALINE PHOSPHATASE 83 U/L 40-150 AST 13 U/L 5-34 ALT 15 U/L BILIRUBIN, TOTAL 0.4 mg/dL 0.2-1.2 May 20, 2024 01:32 PM [facility] PT & INR (PROTIME) Specimen Type: PLASMA No comment entered. Ordering Provider: RHONDA MOORE AM Report Released Date/Time: Mar 26, 2024 03:22 PM Reporting Lab: [address] [address] Performing Lab: [address] [address] INR 1.5 PROTIME 16.0 s H 10.0-13.1 May 20, 2024 01:32 PM [facility] HEMOGLOBIN A1C PANEL Specimen Type: [...] Mar 26, 2024 03:22 PM Reporting Lab: [address] [address] Performing Lab: [address] [address] HEMOGLOBIN A1C 8.6 H 4.0-5.6 May 20, 2024 01:32 PM [facility] BASIC METABOLIC PANEL (non-fasting) Specimen Type: SERUM No comment entered. Ordering Provider: ADAIR APODACA Report Released Date/Time: May 18, 2024 08:18 AM Reporting Lab: [address] [address] Performing Lab: [address] [address] UREA NITROGEN 17 mg/dL 7-25 GLUCOSE 158 mg/dL H 65-100 SODIUM 137 mmol/L 135-145 POTASSIUM 4.1 mmol/L 3.5-5.0 CHLORIDE 106 mmol/L 100-110 CO2 24 meq/L 20-30 CREATININE, Serum 0.83 mg/dL 0.50-1.40 eGFR(CKD-EPI 2020) 86 mL/min >60 May 20, 2024 01:32 PM [facility] MICROALBUMIN CREATININE RATIO PANEL Specimen Type: URINE No comment entered. Ordering Provider: ADAIR APODACA Report Released Date/Time: May 18, 2024 08:18 AM Reporting Lab: [address] [address] Performing Lab: [facility] [address] [facility] [address] MICROALBUMIN/C REATININE RATIO 19.1 mg/g 0-29.9 MICROALBUMIN,Q UANTITATIVE 1.5 mg/dL RR UNAVAIL CREATININE URINE 78.41 mg/dL Social History: Smoking Status (Most current) and Tobacco Use (All prior to encounter date) This section includes the most current, and the historical, smoking and tobacco- related health factors from the [place] facility where the Encounter took place. Current Smoking Status This section includes the most current smoking, or tobacco-related health factor, from the [place] facility where the Encounter took place. Date/Time Current Smoking Status Comment Facil ity August 16, 2023 11:14 AM VA-TOBACCO FORMER USER [facility] Tobacco Use History This section includes a history of the smoking, or tobacco-related health factors, that were collected on or before the date of the Encounter. The data comes from the [place] facility where the Encounter took place. Date/Time Smoking Status/Tobacco Use Comment F acility August 16, 2023 11:14 AM VA-TOBACCO QUIT 15 YRS OR MORE [facility] Encounter Notes: All associated encounter notes This section contains the clinical notes associated to the Encounter. Date/Time Encounter Note(s) Provider Source May 29, 2024 11:43 AM ADMINISTRATIVE NOT E: LOCAL TITLE: CCC: SCHEDULING ADMINISTRATION STANDARD TITLE: ADMINISTRATIVE NOTE DATE OF NOTE: MAY 29, 2024@11:43:10 ENTRY DATE: MAY 29, 2024@11:43:10 AUTHOR: OSMIN CHAIDEZ COSIGNER: URGENCY: STATUS: COMPLETED CCC: SCHEDULING ADMINISTRATION Has ADDENDA Patient Demographics Patient Name: DEXTER MORAN Patient Primary Phone: [phone] Patient Primary [address]: [address] [place] [id number] Patient : 1940 Patient Age: 84 Call Back Number: [phone] Caller/Recipient Relation to Patient: Other If Other Describe Relation to Patient: daughter Caller Name: Taryn Administrative Administrative Note Reason: Other Administrative Note Comments: Veterans daughter Taryn requesting call from [facility] to discuss consult request. Taryn states was being seen by Non-VA provider who was going to refer him to Pulmonology but that provider is retiring. Taryn is requesting to speak with [facility] to get VA referral. Taryn also stated needs to see someone for his back. Taryn declined [facility] Triage at this time for and requested to discuss plan of care with [facility] team. IMPORTANT: This note was created by [facility] staff. Please do not alert the staff member by adding them as a signer for future communications. Alerts are not monitored by this user. /yohana/ OSMIN [facility] AMSA Signed: 05/29/2024 11:43 Receipt Acknowledged By: 06/01/2024 09:25 /es/ Ankit Bergman, Health Latex Caster [facility],PRIMARY CARE 05/29/2024 13:02 /es/ Genevieve Oliva MSN RN CNL Primary Care RN 05/29/2024 ADDENDUM STATUS: COMPLETED Talked with Taryn, she reports community PCP Dr. Francis will be retiring. He had recommended Vet see a pulm, also she reports attempting to have Vet seen for back issues. Reviewed upcoming PCP visit on 06/10, Taryn agrees to discuss these issues with PCP at that visit. /yohana/ Genevieve Oliva MSN RN CNL Primary Care RN Signed: 05/29/2024 13:03 OSMIN CHAIDEZ [facility]
--- OUTSIDE RECORDS SUMMARY | 2024-06-17 10:18 | XMS_ITS ---
Author Name [facility] [place] [facility] [place] Address [address] [place] [address] Care Team Providers Care Rolling Machine Tender Name Role Phone ELOINA MOORE Primary Care Provider [facility] Insurance Providers: All historical and current Section [...] PART A Feb 06, 2005 PART A [id number] DEXTER MORAN PATIENT MEDICARE (WNR) MEDICARE (M) PART B Feb 06, 2005 PART B [id number] DEXTER MORAN PATIENT Selected Encounter This section includes the information on record at [place] for the Encounter. Date/Time Encounter Type Encounter Description Reason Provider Source Apr 13, 2024 10:30 AM OFFICE O/P EST HI 40 MIN PRIMARY CARE/MEDICINE ICD-10-CM R06.00 Dyspnea, unspecified RHONDA MOORE AM Encounter Template Text not used by [place] Assessments - Encounter Diagnoses This section includes the primary and secondary diagnoses documented for the Encounter. Date/Time Primary/Secondary Diagnosis Diagnosis Name Provider Source Apr 13, 2024 10:52 AM PRIMARY Dyspnea, unspecified MOORE,WILL RONAN J [place] [facility] [place] [facility] Apr 13, 2024 10:52 AM SECONDARY Athscl heart disease of [place] coronary artery w/o ang pctrs MOORE,WILL RONAN J [place] [facility] [place] [facility] Apr 13, 2024 10:52 AM SECONDARY Encounter for immunization MOORE,WILL RONAN J [place] [facility] [place] [facility] Apr 13, 2024 10:52 AM SECONDARY Essential (primary) hypertension MOORE,WILL RONAN J [place] [facility] [place] [facility] Apr 13, 2024 10:52 AM SECONDARY Low back pain, unspecified MOORE,WILL RONAN J [place] [facility] [place] [facility] Apr 13, 2024 10:52 AM SECONDARY Obstructive sleep apnea (adult) (pediatric) [facility] [place] [facility] Apr 13, 2024 10:52 AM SECONDARY Type 2 diabetes mellitus without complications [facility] [place] [facility] Apr 13, 2024 10:52 AM SECONDARY Unspecified convulsions MOORE,WILL RONAN J [facility] Plan of Treatment: Future Appointments (+ 6 months) and Future Tests (+/- 45 days) The Plan of Treatment section includes future care activities for the patient from all [place] [facility] This section includes future appointments and future orders which are active, pending or scheduled. Future Appointments This section includes appointments that were scheduled to occur 6 months from the date of the Encounter, up to a maximum of 20 appointments. The data comes from all [place] treatment facilities. Appointment Date/Time Appointment Type Appointme nt Facility Name Apr 17, 2024 10:00 AM AMBULATORY - REHAB MEDICIN E [facility] [place] [facility] May 27, 2024 01:30 PM AMBULATORY - MEDICINE [place] [facility] [place] [facility] Jun 10, 2024 11:30 AM AMBULATORY - MEDICINE [place] [facility] [place] [facility] Jun 10, 2024 01:30 PM AMBULATORY - MEDICINE [place] C [facility] [place] [facility] Jun 18, 2024 01:00 PM AMBULATORY - REHAB MEDICIN E [facility] Jul 22, 2024 11:30 AM AMBULATORY - MEDICINE [facility] August 19, 2024 10:40 AM [facility] Active, Pending, and Scheduled Orders This section includes a listing of several types of active, pending, and scheduled orders, including clinic medications orders, diagnostic test orders, procedure orders and consult orders; where the start date of the order is 45 days before the date of the Encounter or 45 days after the date of theEncounter. The data comes from all [place] treatment facilities. Test Date/Time Test Type Test Details Facility Name Mar 12, 2024 02:31 PM Consult Order [facility]IC[facility] Cons Windows Server Administrator's Choice [facility] Vital Signs: All taken on the encounter date This section contains inpatient and outpatient Vital Signs collected on the date of the Encounter. Date/Time Temperature Pulse Blood Pressure Respiratory Rate SP02 Pain Height Weight Body Mass Index Source Apr 13, 2024 10:47 AM 138/78 [facility] Apr 13, 2024 09:56 AM 98.3 64 160/82 20 97 1 67 218 34 [facility] Immunizations: All administered on the encounter date This section contains immunizations associated to the Encounter. Immunization Series Date Issued Reaction Comments COVID-19 (MODERNA), MRNA, LN P-S, PF, 50 MCG/0.5 ML (AGES 12+ YEARS) Apr 13, 2024 INFLUENZA, HIGH-DOSE, TRIVALENT, PF Apr 13 Social History: Smoking Status (Most current) and Tobacco Use (All prior to encounter date) This section includes the most current, and the historical, smoking and tobacco- related health factors from the [place] facility where the Encounter took place. Current Smoking Status This section includes the most current smoking, or tobacco-related health factor, from the [place] facility where the Encounter took place. Date/Time Current Smoking Status Comment Kaley roberto August 16, 2023 11:14 AM VA-TOBACCO FORMER USER [facility] Tobacco Use History This section includes a history of the smoking, or tobacco-related health factors, that were collected on or before the date of the Encounter. The data comes from the [place] facility where the Encounter took place. Date/Time Smoking Status/Tobacco Use Comment F harvey August 16, 2023 11:14 AM VA-TOBACCO QUIT 15 YRS OR MORE [place] [facility] [place] [facility] Encounter Notes: All associated encounter notes This section contains the clinical notes associated to the Encounter. Date/Time Encounter Note(s) Provider Source Apr 13, 2024 10:42 AM PRIMARY CARE NURSE PRACTITIONER OUTPATIENT NOTE: LOCAL TITLE: NURSE PRACTITIONER OUTPATIENT NOTE STANDARD TITLE: PRIMARY CARE NURSE PRACTITIONER OUTPATIENT NOTE DATE OF NOTE: APR 13, 2024@10:42 ENTRY DATE: APR 13, 2024@10:42:38 AUTHOR: ELOINA MOORE COSIGNER: URGENCY: STATUS: COMPLETED NURSE PRACTITIONER OUTPATIENT NOTE Has ADDENDA Chief complaint: Patient is a 84 year old Adrian. HPI: Pleasant male Adrian here with his son to follow up. He is also followed by Dr. Francis in the community. He is now living with his daughter which is very helpful since losing his last month. Son notes some more MENDIETA, on exam noted some bilat exp wheezing. I suggested PFTs. Remote history of light tobacco use 50+ years ago. He was on monteleukast in the past, community suggested resuming this with flonase. I also advised albuterol inh when symptomatic, will arrange for home RN. He also reports worsening low back pain, will place order for home pt. Allergies: Patient has answered NKA The following VA and Non-VA meds were reconciled with patient. The patient was educated on the use of the medications including indication and side effects. Active and Recently Outpatient Medications (excluding Supplies): Active Outpatient Medications Status ====== 1) ATORVASTATIN CALCIUM 80MG TAB TAKE ONE-HALF TABLET BY MOUTH ACTIVE ONCE DAILY Indication: FOR HIGH CHOLESTEROL 2) CARVEDILOL 6.25MG TAB TAKE ONE TABLET BY MOUTH TWICE DAILY ACTIVE Indication: FOR HIGH BLOOD PRESSURE 3) CLOPIDOGREL BISULFATE 75MG TAB TAKE ONE TABLET BY MOUTH ONCE ACTIVE DAILY Indication: TO PREVENT BLOOD CLOTS 4) GLIPIZIDE 10MG TAB TAKE ONE TABLET BY MOUTH TWICE DAILY ACTIVE Indication: FOR TYPE 2 DIABETES MELLITUS 5) LOSARTAN 25MG TAB TAKE ONE TABLET BY MOUTH ONCE DAILY FOR ACTIVE BLOOD PRESSURE/HEART Indication: FOR HIGH BLOOD PRESSURE 6) MONTELUKAST NA 10MG TAB TAKE ONE TABLET BY MOUTH ONCE DAILY ACTIVE FOR ASTHMA Indication: FOR CONTROLLER MEDICATION FOR ASTHMA 7) OMEPRAZOLE 20MG EC CAP TAKE TWO CAPSULES BY MOUTH TWICE ACTIVE DAILY BEFORE A MEAL Indication: FOR EXCESSIVE PRODUCTION OF STOMACH ACID 8) SERTRALINE HCL 50MG TAB TAKE ONE-HALF TABLET BY MOUTH ONCE ACTIVE DAILY Indication: FOR MAJOR DEPRESSIVE DISORDER 9) SUCRALFATE 1GM TAB TAKE ONE TABLET BY MOUTH TWICE DAILY ACTIVE NEEDED Indication: FOR ULCER Pending Outpatient Medications Status ====== 1) ALBUTEROL 90MCG (CFC-F) 200D ORAL INHL INHALE 2 PUFFS BY PENDING MOUTH EVERY 4 HOURS NEEDED Indication: FOR BRONCHOSPASM 2) ATORVASTATIN CALCIUM 80MG TAB TAKE ONE-HALF TABLET BY MOUTH PENDING ONCE DAILY Indication: FOR HIGH CHOLESTEROL 3) CARVEDILOL 6.25MG TAB TAKE ONE TABLET BY MOUTH TWICE DAILY PENDING Indication: FOR HIGH BLOOD PRESSURE 4) CLOPIDOGREL BISULFATE 75MG TAB TAKE ONE TABLET BY MOUTH ONCE PENDING DAILY Indication: TO PREVENT BLOOD CLOTS 5) FLUTICASONE PROP 50MCG 120D NASAL INHL INSTILL 1 SPRAY INTO PENDING EACH NOSTRIL TWICE DAILY Indication: FOR NASAL IRRITATION/INFLAMMATION 6) GLIPIZIDE 10MG TAB TAKE ONE TABLET BY MOUTH TWICE DAILY PENDING Indication: FOR TYPE 2 DIABETES MELLITUS 7) LEVETIRACETAM 500MG TAB TAKE ONE TABLET BY MOUTH TWICE DAILY PENDING Indication: FOR PARTIAL SEIZURES 8) LOSARTAN 25MG TAB TAKE ONE TABLET BY MOUTH ONCE DAILY FOR PENDING BLOOD PRESSURE/HEART Indication: FOR HIGH BLOOD PRESSURE 9) MONTELUKAST NA 10MG TAB TAKE ONE TABLET BY MOUTH ONCE DAILY PENDING FOR ASTHMA Indication: FOR CONTROLLER MEDICATION FOR ASTHMA 10) OMEPRAZOLE 20MG EC CAP TAKE TWO CAPSULES BY MOUTH TWICE PENDING DAILY BEFORE A MEAL Indication: FOR EXCESSIVE PRODUCTION OF STOMACH ACID 11) SERTRALINE HCL 50MG TAB TAKE ONE-HALF TABLET BY MOUTH ONCE PENDING DAILY Indication: FOR MAJOR DEPRESSIVE DISORDER 20 Total Medications Review of Systems: Constitutional: (-)for Fevers, chills, weakness, nights sweats On examination: 98.3 F [36.8 C] (04/13/2024 09:56)160/82 (04/13/2024 09:56)64 (04/13/2024 09:56)20 (04/13/2024 09:56)1 (04/13/2024 09:56)BMI: 34.2218 lb [98.88 kg] (04/13/2024 09:56) is alert and oriented X3 Neck: supple without masses, trachea midline, ln not palpable, no thyromegaly Cardiovasc: 2plus carotids without bruits, no JVD Heart Reguler rate and rhythm NL S1S2 no S3 or murmur Respiration: Normal respiratory effort, bilat exp wheezes ABD: Benign normal active bowel sounds no HSM no rebound or referred pain EXT: no clubbing, edema, or cyanosis All diagnostics from past month were reviewed with patient. Assessment/plan: Active problems - Computerized Problem List is the source for the followin. Coronary artery disease - maintains non [place] cardiology. 2. Type 2 diabetes mellitus - recent labs with community PCP, will get records. 3. Seizure - follows non [place] neurology, on keppra. 4. Obstructive sleep apnea syndrome - using CPAP, has sleep study scheduled. Health Care Maintenance: COVID and Flu+ given in clinic. Today I spent 45 minutes on some or all of the following: chart review, history, physical examination, treatment planning, education and counseling of the patient/family/manager progressive care, placing orders, communicating with other health care providers, completing health and wellness screenings (see below) and documentation in the electronic health record. Follow up visit in 6 mos. PAVE Foot Check: A complete foot check was completed at this encounter. VISUAL INSPECTION: Includes inspection for skin breaks, deformity, erythema, trauma, pallor on elevation, dependent rubor, nail deformities, extensive callus and pitting edema. Visual exam results: Normal PEDAL PULSES: Includes palpation of dorsalis and posterior tibial pulses and signs/symptoms of vascular compromise like pain, pallor, parasthesia or paralysis. Present (even if diminished) SENSORY CHECK: Includes 10 gram Monofilament (Costilla-Felipe) test of sensation. Intact (Greater than or equal to 80% of sites checked) Abnormal (Less than 80% of sites checked): Intact LOW-RISK: LOW RISK INFORMATION PROVIDED: 1. Advised patient not to walk barefoot. 2. Explained the importance of daily foot checks for changes. 3. Stressed the importance of daily foot hygiene, including bathing and complete drying. Medication Reconciliation: Outpatient: Has the patient been taking medications as documented in the EMLR? YES: The patient has been taking medications as documented in the EMLR. Essential Medication List for Review used to complete this medication reconciliation. INCLUDED IN THIS LIST: Alphabetical list of active outpatient prescriptions dispensed from this [place] (local) and dispensed from another [place] or [facility] facility (remote) as well as inpatient orders (local, pending and active), local clinic medications, locally documented non-VA medications, and local prescriptions that have or been discontinued in the past 90 days. - All changes in medications, including all non-VA/Herbal/OTC medications were entered into CPRS. - If there were any medications the patient should no longer take, they were discontinued. - The patient/caregiver was instructed to update this list, discard old lists, and take this list to the next appointment, whether with a VA or non-VA provider. /SYED Perales DNP, [place] Primary Care Nurse Practitioner Signed: 04/13/2024 10:51 04/15/2024 ADDENDUM STATUS: COMPLETED dx copd, adding albuterol to medications and referring to [facility] for teaching. Also getting PFTs for staging. /SYED Perales DNP, [place] Primary Care Nurse Practitioner Signed: 04/15/2024 14:42 ELOINA MOORE [facility] [place] [facility] Apr 13, 2024 10:04 AM PREVENTIVE MEDICINE NURSING NOTE: LOCAL TITLE: CLINICAL REMINDERS/NURSING STANDARD TITLE: PREVENTIVE MEDICINE NURSING NOTE DATE OF NOTE: APR 13, 2024@10:04 ENTRY DATE: APR 13, 2024@10:04:21 AUTHOR: ANKIT JEAN EXP COSIGNER: URGENCY: STATUS: COMPLETED CLINICAL REMINDERS/NURSING Has ADDENDA Advance Directive Screen MH AD: Patient does not have an Advance Directive completed and is requesting more information. A consult was sent to Social Work Services at this visit so that an appointment can be made with the patient to review the advance directive. The patient received education about Advance Directives and written notification of his/her rights. /es/ Ankit Jean, [facility] ANALYST SALES,PRIMARY CARE Signed: 04/13/2024 10:06 04/13/2024 ADDENDUM STATUS: COMPLETED COVID-19 Immunization: Moderna Monovalent (Spikevax) Administered: COVID-19 (MODERNA), MRNA, LNP-S, PF, 50 MCG/0.5 ML (AGES 12+ YEARS) Date Administered: Apr 13, 2024 10:30 Series: Booster Pharmacology Professor: MODERNA Ideagen. Lot: [id number] Exp Date: September 05, 2024 NDC: [id number] Admin Route/Site: INTRAMUSCULAR/RIGHT DELTOID Dosage: 0.5mL Vaccine Information Statement(s): COVID-19 MRNA VACCINE (12+ YRS) VIS Jan 23, 2024 (LITHUANIAN) Order By: Policy Administered By: Genevieve Oliva Vaccine administered without complications. Influenza Immunization: Influenza, High-Dose, Trivalent, Preservative Free (Fluzone-Syringe) Administered: INFLUENZA, HIGH-DOSE, TRIVALENT, PF Date Administered: Apr 13, 2024 10:30 Pharmacology Professor: SANOFI PASTEUR Lot: [id number] Exp Date: Oct 05, 2024 NDC: [id number] Admin Route/Site: INTRAMUSCULAR/LEFT DELTOID Dosage: 0.5mL Vaccine Information Statement(s): INFLUENZA(FLU) VACC(INACTIVATED OR RECOMBINANT)VIS Nov 11, 2020 (LITHUANIAN) Order By: Policy Administered By: Genevieve Oliva The Influenza Vaccine Information Statement (VIS) was reviewed with the patient/caregiver which lists the benefits and risks of the vaccine and the risks of not receiving the Influenza vaccine. The patient/caregiver denied any prior severe reaction to this vaccine or its components or a severe allergic reaction, such as anaphylaxis, to any vaccine or any injectable therapy. The patient/caregiver gave verbal consent to receive the vaccine. /yohana/ Genevieve Oliva MSN RN CNL Primary Care RN Signed: 04/13/2024 10:49 [facility]
--- OUTSIDE RECORDS SUMMARY | 2024-06-17 10:18 | XMS_ITS | Continuity of Care Document ---
Author Organization [facility] ter Address [address] [place] [id number]- Care Team Providers Care Assembler Fishing Floats Name Role Phone Gilbert Francis MD Primary Care Physician [place] [facility] [place]): [place] - 06/03/[address] [address] Attending Physician: Eliceo Mccollum MD Admitting Physician: Eliceo Mccollum MD Referring Physician: Eliceo Mccollum MD Encounter Type: Pre-Outpt Allergies, Adverse Reactions, Alerts No Known Allergies Medications apixaban 5 mg oral tablet = 5 mg, By Mouth, 2 times a day, # 60 tablet, 0 Refills, Maintenance, 05/02/24 12:35:00 PM EST, Tablet, [facility], Partial fill upon patient request if the prescription is for a schedule II opioid drug., 171, cm, 05/02/24 10:37:00 EST, Height, 94, kg, 05/01/24 10:40:00 EST, Dry Weight Start Date: 05/02/24 Stop Date: 06/01/24 Status: Ordered Quantity: 60.0 Unit: tablet Repeat number: 1 carvedilol 6.25 mg oral tablet 6.25 mg, By Mouth, Every 12 hours, # 60 each, Refills 0, Tot. Refills 0, Maintenance, 10/21/22 3:18:00 PM EDT, Route to Pharmacy Electronically, [facility], Partial fill upon patient request if the prescription is for a schedule II opioid drug., 180, cm, 10/21/22 10:52:00 EDT, Height, 96.6,kg, 10/20/22 12:43:00 EDT, Dry Weight Start Date: 10/21/22 Stop Date: 11/20/22 Status: Ordered Quantity: 60.0 Unit: each Repeat number: 1 Coenzyme Q10 100 mg oral capsule 1 capsule = 100 mg, By Mouth, Daily, # 90 capsule, 2 Refills, Maintenance, 02/20/24 12:04:00 PM EST, Capsule, [facility], Partial fill upon patient request if the prescription is for a schedule II opioid drug., 178, cm, 08/09/23 13:00:00 EDT, Height, 95.5, kg, 08/02/23 13:02:00 EDT, Dry Weight Start Date: 02/20/24 Stop Date: 11/16/24 Status: Ordered Quantity: 90.0 Unit: capsule Repeat number: 3 glipiZIDE 5 mg oral tablet 10 mg, 2, tablet, By Mouth, Daily, Refills 0, Maintenance, 10/17/22 12:15:00 PM EDT, Partial fill upon patient request if the prescription is for a schedule II opioid drug. Start Date: 10/17/22 Status: Ordered Repeat number: 1 Keppra 500 mg oral tablet 1 tablet = 500 mg, By Mouth, 2 times a day, new dose change, # 180 tablet, 1 Refills, Maintenance, 02/20/24 12:04:00 PM EST, Tablet, [facility], Partial fill upon patient request if the prescription is for a schedule II opioid drug., 178, cm, 08/09/23 13:00:00 EDT, Height, 95.5, kg, 08/02/23 13:02:00 EDT, Dry Weight Start Date: 02/20/24 Stop Date: 08/18/24 Status: Ordered Quantity: 180.0 Unit: tablet Repeat number: 2 Lipitor Tablet 40 mg, By Mouth, Daily, Refills 0, Tot. Refills 0, 01/25/05 4:41:05 PM EDT Start Date: 01/25/05 Status: Ordered Repeat number: 1 losartan 25 mg oral tablet 25 mg, 1, tablet, By Mouth, Daily, # 90 tablet, Refills 0, Maintenance, 05/01/24 2:30:00 PM EST, Partial fill upon patient request if the prescription is for a schedule II opioid drug. Start Date: 05/01/24 Status: Ordered Quantity: 90.0 Unit: tablet Repeat number: 1 multivitamin Lipotropic with Multivitamins oral capsule 1 capsule, By Mouth, Daily, # 30 capsule, 0 Refills, Maintenance, 10/17/22 12:16:00 PM EDT, Capsule,Partial fill upon patient request if the prescription is for a schedule II opioid drug. Start Date: 10/17/22 Status: Ordered Quantity: 30.0 Unit: capsule Repeat number: 1 Plavix 75 mg oral tablet 75 mg, 1, tablet, By Mouth, Daily, # 30 tablet, Refills 5, Maintenance, 08/02/23 9:57:00 AM EDT, Partial fill upon patient request if the prescription is for a schedule II opioid drug. Start Date: 08/02/23 Status: Ordered Quantity: 30.0 Unit: tablet Repeat number: 1 sucralfate 1 gm oral tablet 1 Gm, 1, tablet, By Mouth, 2 times a day, # 60 tablet, Refills 0, Maintenance, 10/17/22 12:15:00 PM EDT, Partial fill upon patient request if the prescription is for a schedule II opioid drug. Start Date: 10/17/22 Status: Ordered Quantity: 60.0 Unit: tablet Repeat number: 1 Zoloft 25 mg oral tablet 1 tablet = 25 mg, By Mouth, Daily at supper, # 30 tablet, 0 Refills, Maintenance, 08/02/23 9:57:00 AM EDT, Tablet, Partial fill upon patient request if the prescription is for a schedule II opioid drug. Start Date: 08/02/23 Status: Ordered Quantity: 30.0 Unit: tablet Repeat number: 1 Problem List Condition Confirmation Course Effective Dates Status Health St atus Informant Coronary artery disease Confirmed Active GERD - Gastro-esophageal reflux disease Confirmed Active Peripheral artery disease Confirmed Active Stent in anterior descending branch of left coronary artery Confirmed Active Type 2 diabetes mellitus Confirmed Active Social History Social History Type Response Smoking Status Former smoker, quit more than 30 days ago entered on: 10/17/22 Sex Sex Representation Male (finding) Patient Care team information Care Team Personnel Name: Gilbert Francis MD Position: [facility] Outreach Member Role: PCP Address: [address] [place] [address] [place] [address]- Telecom: Name: Bart Bustillo RN Position: [facility] RN Member Role: Primary Care Nurse Name: Radha El RN Position: [facility] RN Member Role: Primary Care Nurse Name: Caryn Luo RN Position: [facility] RN Member Role: Primary Care Nurse Name: Bishnu Kwan RN Position: [facility] RN Member Role: Primary Care Nurse Name: Kylee David LPN Position: [facility] RN Member Role: Primary Care Nurse Name: Alejandra Johnson RN Position: [facility] RN Member Role: Primary Care Nurse Care Team Related Persons Name: MATTHIEU RAMIREZ Name: DEXTER MORAN Insurance Providers Guarantor name: DEXTER MORAN Health Plan Information #: 2 Payer: [facility] [employer] Member Number: [id number] Policy Number: NA Group Number: [id number] Health Plan Information #: 1 Payer: MEDICARE PART B OUTPT Member Number: [id number] Policy Number: NA Group Number: NA
--- OUTSIDE RECORDS SUMMARY | 2024-06-17 10:18 | XMS_ITS | Encounter Summary ---
Author Name [place] Address [address] [place] [address] Care Team Providers Care Health And Wellness Instructor Name Role Phone ELOINA MOORE Primary [facility] Provider [facility] Insurance Providers: All historical and current Section [...] PART A Feb 06, 2005 PART A [id number] DEXTER MORAN PATIENT MEDICARE (WNR) MEDICARE (M) PART B Feb 06, 2005 PART B [id number] DEXTER MORAN PATIENT Selected Encounter This section includes the information on record at [place] for the Encounter. Date/Time Encounter Type Encounter Description Reason Provider Source Apr 17, 2024 10:00 AM HEARING SERVICE AUDIOLOGY ICD-10-CM Z46.1 Encounter for fitting and adjustment of hearing aid ADRIAN VICENTE Encounter Template Text not used by [facility] Assessments - Encounter Diagnoses This section includes the primary and secondary diagnoses documented for the Encounter. Date/Time Primary/Secondary Diagnosis Diagnosis Name Provider Source Apr 17, 2024 10:41 AM PRIMARY Encounter for fitting and adjustment of hearing aid ADRIAN VICENTE [facility] Apr 17, 2024 10:41 AM SECONDARY Sensorineural hearing loss, bilateral ADRIAN VICENTE [facility] Plan of Treatment: Future Appointments (+ 6 months) and Future Tests (+/- 45 days) The Plan of Treatment section includes future care activities for the patient from all [place] [facility]. This section includes future appointments and future orders which are active, pending or scheduled. Future Appointments This section includes appointments that were scheduled to occur 6 months from the date of the Encounter, up to a maximum of 20 appointments. The data comes from all [facility]. Appointment Date/Time Appointment Type Appointme nt Facility Name May 27, 2024 01:30 PM AM[place]UL[place] [facility] Jun 10, 2024 11:30 AM [facility] [place] [facility] Jun 10, 2024 01:30 PM AMBULATORY - MEDICINE [facility] [place] [facility] Jun 18, 2024 01:00 PM [facility] Jul 22, 2024 11:30 AM [place] [facility] August 19, 2024 10:40 AM AMBULATORY - MEDICINE [facility] [place] [facility] Oct 12, 2024 11:00 AM AMBULATORY - MEDICINE [facility] Active, Pending, and Scheduled Orders This [...] from all [facility]. Test Date/Time Test Type Test Details Facility Name Mar 12, 2024 02:31 PM Consult Order COMMUNITY [facility]-SLEEP MEDICINE Cons Solid [facility] Social History: Smoking Status (Most current) and Tobacco Use (All prior to encounter date) This section includes the most current, and the historical, smoking and tobacco- related health factors from the [place] facility where the Encounter took place. Current Smoking Status This section includes the most current smoking, or tobacco-related health factor, from the [place] facility where the Encounter took place. Date/Time Current Smoking Status Comment Facil ity August 16, 2023 11:14 AM VA-TOBACCO FORMER USER [facility] Tobacco Use History This section includes a history of the smoking, or tobacco-related health factors, that were collected on or before the date of the Encounter. The data comes from the [place] facility where the Encounter took place. Date/Time Smoking Status/Tobacco Use Comment F acility August 16, 2023 11:14 AM [place]AC[place] QUIT 15 YRS OR MORE [facility] Encounter Notes: All associated encounter notes This section contains the clinical notes associated to the Encounter. Date/Time Encounter Note(s) Provider Source Apr 17, 2024 09:39 AM AUDIOLOGY E & M NO TE: LOCAL TITLE: AUDIOLOGY CLINIC STANDARD TITLE: AUDIOLOGY E & M NOTE DATE OF NOTE: APR 17, 2024@09:39 ENTRY DATE: APR 17, 2024@09:39:18 AUTHOR: ADRIAN VICENTE COSIGNER: URGENCY: STATUS: COMPLETED AUDIOLOGY CLINIC Has ADDENDA Dx CODE: Z46.1- Encounter for Fitting/Programming Hearing Aid(s); H90.3- Sensorineural Hearing Loss, Bilateral APPOINTMENT TYPE: Hearing Aid Fitting SUBJECTIVE (S): The patient was seen for hearing aid fitting and issuance, accompanied by his son. He had previously been evaluated and found to exhibit significant hearing loss for which amplification was recommended. [place] is a new hearing aid user. How does the patient best learn? Verbal instruction, demonstration Does the patient have any cultural and confucianism beliefs, emotional barriers, physical or cognitive limitations, and communication barriers which may impact his ability to learn? No Desire and motivation to learn? Good OBJECTIVE (O): Physical fit of hearing aids was good. Patient verified comfort. Verification of an appropriate acoustic response was obtained using Real Ear measurements (speech mapping) and NAL-NL2 targets. The patient reported good subjective benefit as well. Feedback manager corporate communications was run. Hearing aids were found to be meeting targets adequately and MPO was not exceeding estimated UCL. Settings stored in [facility]OLDAN. ASSESSMENT (A): The following devices were issued: Make: JOHN Model: EDGE AI HS R Right Serial Number: [id number] Left Serial Number: [id number] Battery size: Rechargeable Warranty ends: 04/24/27 Trial Period ends: 09/21/24 Domes/Wax guards: Hear Clear Program(s): Automatic Button(s): Short press= Synced VC, R- Raise, L- Lower Long press= Power on/off Fitting Formula: NAL-NL2 Remote Programming: HAs are capable Bluetooth: [place] not interested Counseling was completed throughout todays appointment using a standardized curriculum that includes but is not limited to; realistic expectations with amplification in adverse listening environments, acclimatization to own voice and environmental sounds (following real-ear measurements), the importance of consistent use of amplification, proper insertion/removal, care and maintenance (including wax guards/domes if applicable), signal and alerts of devices, and charging/batteries. The was provided the opportunity to practice in office and reports confidence/understanding in all items reviewed. Time Spent= 20 minutes The patient was informed of and signed/agreed to [place] policy on hearing aid [place]: Yes Users are responsible for the maintenance and security of their devices. Determination of need to replace a hearing aid is made by the [place] hospital nurse liaison. Hearing aids will not be replaced in cases of neglect, abuse, or excessive loss. Items issued are for personal use only. Prognosis for successful hearing aid use is good. PLAN (P): 1. Follow-up for programming/adjustments as needed. 2. The International Outcome Inventory-Hearing Aids (IOI-PEREZ) will be mailed to the in four weeks. He was asked to complete and mail back to clinic after completion. Patient Education Education provided on the following topics: Hearing aid use, care, maintenance Education provided to: P Response to Education: DUY PAREKH, RODRIGUEZ Cortes Patient P Family F Significant Other SO Verbalizes Understanding VU Returns Demonstration RD Performs Independently PI Lacks Comprehension LC Refused Education RE Not Applicable NA /CHUCK Henderson, [facility]A STAFF TILE MECHANIC HELPER Signed: 04/17/2024 10:41 06/04/2024 ADDENDUM STATUS: COMPLETED [place] returned IOI-PEREZ Outcome Measure to the clinic via mail with an overall score of 25 Based on this score: i. No follow-up call is indicated _XX_ ii. Follow-up call is indicated and fitting clinician will be notified __ The Veterans daughter noted: My Dad is still having difficulty hearing with his new aids. I have also noticed he is also speaking softer while wearing them. Taryn /yohana/ SERJIO INFANTE [facility] Radius Corner Machine Operator Signed: 06/04/2024 10:39 Receipt Acknowledged By: * AWAITING SIGNATURE * ADRIAN VICENTE NICOLE L [facility]
--- OUTSIDE RECORDS SUMMARY | 2024-06-17 10:18 | XMS_ITS | Encounter Summary ---
Author Name [facility] [place] Organization [place] Address [address] [place] [address] Care Team Providers Care Surface Mount Technology Operator Name Role Phone ELOINA MOORE Primary Care Provider [facility] Insurance Providers: All historical and current Section [...] PART A Feb 06, 2005 PART A [id number] DEXTER MORAN PATIENT MEDICARE (WNR) MEDICARE (M) PART B Feb 06, 2005 PART B [id number] DEXTER MORAN PATIENT Selected Encounter This section includes the information on record at [place] for the Encounter. Date/Time Encounter Type Encounter Description Reason Pro vider Source Jun 10, 2024 11:30 AM Outpatient Encounter PRIMARY CARE/MEDICINE IHE Encounter Template Text not used by [place] Plan of Treatment: Future Appointments (+ 6 [...] 20 appointments. The data comes from all [place] treatment facilities. Appointment Date/Time Appointment Type Appointme nt Facility Name Jun 18, 2024 01:00 PM AMBULATORY - REHAB MEDICIN E [place] [facility] Jul 22, 2024 11:30 AM AMBULATORY - MEDICINE [place] C N[place] [facility] August 19, 2024 10:40 AM AMBULATORY - MEDICINE [place] [facility] Oct 12, 2024 11:00 AM AMBULATORY - MEDICINE [place] C N[place] [facility] Oct 28, 2024 04:00 PM AMBULATORY - NONE [facility] Active, Pending, and Scheduled Orders This section includes a listing of several types of active, pending, and scheduled orders, including clinic medications orders, diagnostic test orders, procedure orders and consult orders; where the start date of the order is 45 days before the date of the Encounter or 45 days after the date of theEncounter. The data comes from all [facility]. Test Date/Time Test Type Test Details Facility Name Jun 10, 2024 01:02 PM Consult Order COMMUNITY CARE-CARDIOLOGY Cons [place]ringe [place] [facility] Jun 10, 2024 01:02 PM Consult Order COMMUNITY CARE-PULMONARY [place] Lab Results: +/- 30 days of the encounter This section includes the Chemistry and Hematology Lab Results on record with [place] for the patient. Radiology Reports and Pathology Reports are provided separately, in subsequent sections. Lab Results This section contains the Chemistry/Hematology Results that were resulted 30 days before or 30 daysafter the date of the Encounter. Date/Time Source Result Type Result - Unit Interpretation Reference Range Comment May 20, 2024 01:32 PM [facility] CBC Specimen Type: BLOOD No comment entered. Ordering Provider: RHONDA MOORE AM Report Released Date/Time: Mar 26, 2024 03:22 PM Reporting Lab: [facility] [address] [address] Performing Lab: [facility] [address] [facility] [address] WBC 6.58 10*3/uL 4.50-11.00 RBC 3.94 10*6/uL L 4.23-5.66 HGB 11.2 g/dL L 12.8-17 HCT 33.9 L 39.2-50.4 MCV 86.0 fL 82-99 MCHC 33.0 g/dL 30.8-35.1 PLT 226 10*3/uL 140-360 RDW-CV 14.2 12.0-16.0 MCH 28.4 pg 26.2-32.6 May 20, 2024 01:32 PM [facility] LIPID PANEL, NON FASTING Specimen Type: SERUM Comment: *UREA NITROGEN Not Performed: May 20, 2024@15:11 by [id number] *FLAT CUTTER Reason: DUP *GLUCOSE Not Performed: May 20, 2024@15:11 by [id number] *FLAT CUTTER Reason: DUP *SODIUM Not Performed: May 20, 2024@15:11 by [id number] *FLAT CUTTER Reason: DUP *POTASSIUM Not Performed: May 20, 2024@15:11 by [id number] *FLAT CUTTER Reason: DUP *CHLORIDE Not Performed: May 20, 2024@15:11 by [id number] *FLAT CUTTER Reason: DUP *CO2 Not Performed: May 20, 2024@15:11 by [id number] *FLAT CUTTER Reason: DUP *CREATININE (eGFR 2020) Not Performed: May 20, 2024@15:11 by [id number] *FLAT CUTTER Reason: DUP Ordering Provider: RHONDA MOORE AM Report Released Date/Time: Mar 26, 2024 03:22 PM Reporting Lab: [facility] [address] [facility] [address] Performing Lab: [facility] [address] [facility] [address] CHOLESTEROL 141 mg/dL TRIGLYCERIDE 205 mg/dL H 0-150 LDL calculated 57 mg/dL 0-129 CHOL/HDL 3.3 HDL CHOLESTEROL 43 mg/dL 40-60 May 20, 2024 01:32 PM [facility] LIVER FUNCTION Specimen Type: SERUM Comment: *UREA NITROGEN Not Performed: May 20, 2024@15:11 by [id number] *FLAT CUTTER Reason: DUP *GLUCOSE Not Performed: May 20, 2024@15:11 by [id number] *FLAT CUTTER Reason: DUP *SODIUM Not Performed: May 20, 2024@15:11 by [id number] *FLAT CUTTER Reason: DUP *POTASSIUM Not Performed: May 20, 2024@15:11 by [id number] *FLAT CUTTER Reason: DUP *CHLORIDE Not Performed: May 20, 2024@15:11 by [id number] *FLAT CUTTER Reason: DUP *CO2 Not Performed: May 20, 2024@15:11 by [id number] *FLAT CUTTER Reason: DUP *CREATININE (eGFR 2020) Not Performed: May 20, 2024@15:11 by [id number] *FLAT CUTTER Reason: DUP Ordering Provider: RHONDA MOORE AM Report Released Date/Time: Mar 26, 2024 03:22 PM Reporting Lab: [address] [address] Performing Lab: [address] [address] PROTEIN,TOTAL 6.7 g/dL 6.0-8.3 ALBUMIN 3.8 g/dL 3.5-5.0 ALKALINE PHOSPHATASE 83 U/L 40-150 AST 13 U/L 5-34 ALT 15 U/L BILIRUBIN, TOTAL 0.4 mg/dL 0.2-1.2 May 20, 2024 01:32 PM [facility] PT & INR (PROTIME) Specimen Type: PLASMA No comment entered. Ordering Provider: RHONDA MOORE AM Report Released Date/Time: Mar 26, 2024 03:22 PM Reporting Lab: [facility] [address] [facility] [address] Performing Lab: [address] [address] INR 1.5 PROTIME 16.0 s H 10.0-13.1 May 20, 2024 01:32 PM [facility] HEMOGLOBIN A1C PANEL Specimen Type: BLOOD [...] Mar 26, 2024 03:22 PM Reporting Lab: [address] [address] Performing Lab: [address] [address] HEMOGLOBIN A1C 8.6 H 4.0-5.6 May 20, 2024 01:32 PM [facility] BASIC METABOLIC PANEL (non-fasting) Specimen Type: SERUM No comment entered. Ordering Provider: ADAIR APDOACA Report Released Date/Time: May 18, 2024 08:18 AM Reporting Lab: [address] [address] Performing Lab: [address] [address] UREA NITROGEN 17 mg/dL 7-25 GLUCOSE 158 mg/dL H 65-100 SODIUM 137 mmol/L 135-145 POTASSIUM 4.1 mmol/L 3.5-5.0 CHLORIDE 106 mmol/L 100-110 CO2 24 meq/L 20-30 CREATININE, Serum 0.83 mg/dL 0.50-1.40 eGFR(CKD-EPI 2020) 86 mL/min >60 May 20, 2024 01:32 PM [facility] MICROALBUMIN CREATININE RATIO PANEL Specimen Type: URINE No comment entered. Ordering Provider: ADAIR APODACA Report Released Date/Time: May 18, 2024 08:18 AM Reporting Lab: [address] [address] Performing Lab: [address] [address] MICROALBUMIN/C REATININE RATIO 19.1 mg/g 0-29.9 MICROALBUMIN,Q [...] 140/80 20 99 8 67 219 34 [facility] Social History: Smoking Status (Most current) and Tobacco Use (All prior to encounter date) This section includes the most current, and the historical, smoking and tobacco- related health factors from the [place] facility where the Encounter took place. Current Smoking Status This section includes the most current smoking, or tobacco-related health factor, from the [place] facility where the Encounter took place. Date/Time Current Smoking Status Comment Facil ity August 16, 2023 11:14 AM [place]-TOBACCO FORMER USER [facility] Site9[facility] EnergyCL[facility]EM[facility]OREApisp[facility] Tobacco Use History This section includes a history of the smoking, or tobacco-related health factors, that were collected on or before the date of the Encounter. The data comes from the [place] facility where the Encounter took place. Date/Time Smoking Status/Tobacco Use Comment F actong August 16, 2023 11:14 AM [place]-TOBACCO QUIT 15 YRS OR MORE [facility]
--- OUTSIDE RECORDS SUMMARY | 2024-06-17 10:18 | XMS_ITS | Continuity of Care Document ---
Author Organization [facility] ter Address [address] [place] [address]- Care Team Providers Care Binding Stitcher Name Role Phone Gilbert Francis MD Primary Care Physician [phone] Encounter [facility] Date(s): 05/02/24 - 06/01/[address] [address]- Attending Physician: Not on Staff, Attending MD Admitting Physician: Not on Staff, Admitting MD Referring Physician: Not on Staff, Referring MD Encounter Type: Pre-Outpt Allergies, Adverse Reactions, Alerts No Known Allergies Medications apixaban 5 mg oral tablet = 5 mg, By Mouth, 2 times a day, # 60 tablet, 0 Refills, Maintenance, 05/02/24 12:35:00 PM EST, Tablet, [facility], Partial fill upon patient [...] 3:18:00 PM EDT, Route to Pharmacy Electronically, [facility], Partial fill upon patient [...] Refills, Maintenance, 02/20/24 12:04:00 PM EST, Tablet, [facility], Partial fill upon patient [...] Team Personnel Name: Gilbert Francis MD Position: [facility] Outreach Member Role: PCP Address: [address] [place] [address] [place] [address]- Telecom: Name: Bart Bustillo RN Position: [facility] RN Member Role: Primary Care Nurse Name: Radha El RN Position: S RN Member Role: Primary Care Nurse Name: Caryn Luo RN Position: [facility] RN Member Role: Primary Care Nurse Name: Bishnu Kwan RN Position: [facility] RN Member Role: Primary Care Nurse Name: Kylee David LPN Position: [facility] RN Member Role: Primary Care Nurse Name: Alejandra Johnson RN Position: [facility] RN Member Role: Primary Care Nurse Care Team Related Persons Name: JAMESMATTHIEU Name: DEXTER MORAN JR Insurance Providers Guarantor name: DEXTER MORAN [facility] Plan Information #: 1 Payer: MEDICARE PART B OUTPT Member Number: NA Policy Number: NA Group Number: NA
--- OUTSIDE RECORDS SUMMARY | 2024-06-17 10:18 | XMS_ITS ---
Author Name [facility] [place] Organization [facility] [place] [place] [facility] [place] Address [address] [place] [address] Care Team Providers Care Performance [employer] Specialist Name Role Phone ROME SAVAGE Primary [facility] Provider [facility] Insurance Providers: All historical and [...] PART A Feb 06, 2005 PART A [id number] ANAKYEDEXTER CROSS PATIENT MEDICARE (WNR) MEDICARE (M) PART B Feb 06, 2005 PART B [id number] DEXTER MORAN PATIENT Selected Encounter This section includes the information on record at MD for the Encounter. 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 [facility] Jan 15, 2024 03:51 PM SECONDARY Disorder of arteries and arterioles, unspecified [facility] Jan 15, 2024 03:51 PM SECONDARY Gastro-esophageal reflux disease without esophagitis [facility] Jan 15, 2024 03:51 PM SECONDARY Hemiplegia, unspecified affecting unspecified side [facility] Jan 15, 2024 03:51 PM SECONDARY Type 2 diabetes mellitus without complications SAVAGE,[facility] Jan 15, 2024 03:51 PM SECONDARY Unspecified convulsions SAVAGE,[facility] Plan of Treatment: Future Appointments (+ 6 months) and Future Tests (+/- 45 days) The Plan of Treatment section includes future care activities for the patient from all [facility]. This section includes future appointments and future orders which are active, pending or scheduled. Future Appointments This section includes appointments that were scheduled to occur 6 months from the date of the Encounter, up to a maximum of 20 appointments. The data comes from all [facility]. Appointment Date/Time Appointment Type Appointme nt Facility Name Feb 20, 2024 11:30 AM AMBULATORY - MEDICINE [facility] Mar 13, 2024 08:00 AM AMBULATORY - MEDICINE [facility] [place] [facility] Mar 20, 2024 08:00 AM [facility] Apr 13, 2024 10:30 AM AMBULATORY - MEDICINE [facility] [place] [facility] Apr 17, 2024 10:00 AM [facility] Lab Results: +/- 30 days of [...] Result - Unit Interpretation Reference Range Comment Oct 16, 2023 03:53 PM [facility] BASIC METABOLIC PANEL (non-fasting) Specimen Type: SERUM No comment entered. Ordering Provider: RHONDA SAVAGE AM Report Released Date/Time: Oct 02, 2023 11:31 AM Reporting Lab: [address] [address] Performing Lab: [address] [address] UREA NITROGEN 25 mg/dL 7-25 GLUCOSE 121 mg/dL H 65-100 SODIUM 135 mmol/L 135-145 POTASSIUM 4.1 mmol/L 3.5-5.0 CHLORIDE 104 mmol/L 100-110 CO2 21 meq/L 20-30 CREATININE, Serum 0.90 mg/dL 0.50-1.40 eGFR(CKD-EPI 2020) 85 mL/min >60 Oct 16, 2023 03:53 PM [facility] LIPID PANEL, NON FASTING Specimen Type: SERUM No comment entered. Ordering Provider: RHONDA SAVAGE AM Report Released Date/Time: Oct 02, 2023 11:31 AM Reporting Lab: [address] [address] Performing Lab: [address] [address] CHOLESTEROL 163 mg/dL TRIGLYCERIDE 148 mg/dL 0-150 LDL calculated 86 mg/dL 0-129 CHOL/HDL 3.5 HDL CHOLESTEROL 47 mg/dL 40-60 Oct 16, 2023 03:53 PM [facility] LIVER FUNCTION Specimen Type: SERUM No comment entered. Ordering Provider: RHONDA SAVAGE AM Report Released Date/Time: Oct 02, 2023 11:31 AM Reporting Lab: [address] [address] Performing Lab: [facility] [address] [facility] [address] [address] PROTEIN,TOTAL 6.6 g/dL 6.0-8.3 ALBUMIN 3.7 g/dL 3.5-5.0 ALKALINE PHOSPHATASE 86 U/L 40-150 AST 17 U/L 5-34 ALT 21 U/L BILIRUBIN, TOTAL 0.4 mg/dL 0.2-1.2 Oct 16, 2023 03:53 PM [facility] HEMOGLOBIN A1C PANEL Specimen Type: BLOOD Comment: Values obtained from A1C measurements can vary. For atypical A1C assays, a reported value of 7.0 could actually be between 6.72 and 7.28 if measured by a reference method. A reported value of 9.0 could actually be between 8.73 and 9.27. Ref: http://www.ngs p.org/CAPdata. asp Ordering Provider: RHONDA SAVAGE AM Report Released Date/Time: Oct 02, 2023 11:31 AM Reporting Lab: [address] [address] Performing Lab: [address] [address] HEMOGLOBIN A1C 8.0 H 4.0-5.6 Oct 16, 2023 03:53 PM [facility] MICROALBUMIN CREATININE RATIO PANEL Specimen Type: URINE No comment entered. Ordering Provider: RHONDA SAVAGE AM Report Released Date/Time: Oct 02, 2023 11:31 AM Reporting Lab: [address] [address] Performing Lab: [address] [address] MICROALBUMIN/C REATININE RATIO 8.3 mg/g 0-29.9 MICROALBUMIN,Q UANTITATIVE 0.8 mg/dL RR UNAVAIL CREATININE URINE 96.62 mg/dL Oct 16, 2023 03:53 PM [facility] URINALYSIS CLEAN CATCH Specimen Type: URINE Comment: If Glucose = >500 and Ketones are positive, please alert the Physician. Ordering Provider: RHONDA SAVAGE AM Report Released Date/Time: Oct 02, 2023 11:31 AM Reporting Lab: [facility] [address] [facility] [facility] [address] Performing Lab: [facility] [address] [facility] [facility] [address] UA COLOR Light-Yellow Yellow UA APPEARANCE Clear Clear UA GLUCOSE NEGATIVE mg/dL Negative UA KETONES NEGATIVE mg/dL Negative UA BLOOD NEGATIVE mg/dL Negative UA PROTEIN NEGATIVE mg/dL Negative UA NITRITE NEGATIVE mg/dL Negative UA BILIRUBIN NEGATIVE mg/dL Negative UA SPECIFIC GRAVITY 1.024 H 1.016-1.02 2 UA pH 5.5 5.0-9.0 UA UROBILINOGEN <2.0 mg/dL <2.0 UA LEUKOCYTE NEGATIVE Negative Oct 16, 2023 03:53 PM [facility] CBC Specimen Type: BLOOD No comment entered. Ordering Provider: RHONDA SAVAGE AM Report Released Date/Time: Oct 02, 2023 11:31 AM Reporting Lab: [facility] [address] [facility] [facility] [address] Performing Lab: [address] [address] WBC 7.00 10*3/uL 4.50-11.00 RBC 4.11 10*6/uL L 4.23-5.66 HGB 12.0 g/dL L 12.8-17 HCT 34.9 L 39.2-50.4 MCV 84.9 fL 82-99 MCHC 34.4 g/dL 30.8-35.1 PLT 201 10*3/uL 140-360 RDW-CV 13.5 12.0-16.0 MCH 29.2 pg 26.2-32.6 Vital Signs: All taken on the encounter date This section contains inpatient and outpatient Vital Signs collected on the date of the Encounter. Date/Time Temperature Pulse Blood Pressure Respiratory Rate SP02 Pain Height Weight Body Mass Index Source Oct 16, 2023 03:08 PM 98.2 74 120/62 16 97 9 67 212.6 33 [facility] Social History: Smoking Status (Most [...] 16, 2023 11:14 AM VA-TOBACCO FORMER USER [facility] Tobacco Use History This section includes a history of the smoking, or tobacco-related health factors, that were collected on or before the date of the Encounter. The data comes from the [place] facility where the Encounter took place. Date/Time Smoking Status/Tobacco Use Comment F acility August 16, 2023 11:14 AM MD-TOBACCO QUIT 15 YRS OR MORE [facility] Encounter Notes: All associated encounter notes This section contains the clinical notes associated to the Encounter. Date/Time Encounter Note(s) Provider Source Oct 16, 2023 03:38 PM PRIMARY CARE NURSE PRACTITIONER OUTPATIENT NOTE: LOCAL TITLE: NURSE PRACTITIONER OUTPATIENT NOTE STANDARD TITLE: PRIMARY CARE NURSE PRACTITIONER OUTPATIENT NOTE DATE OF NOTE: OCT 16, 2023@15:38 ENTRY DATE: OCT 16, 2023@15:38:23 AUTHOR: ROME SAVAGE COSIGNER: URGENCY: STATUS: COMPLETED Chief complaint: Patient is a 83 year old [place]. HPI: seeking to est care, assist with medications. 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 He had history of non-STEMI in October, and underwent coronary angiogram (which showed total occlusion of RCA and non-obstructive disease of LAD and LCx). He had speech abnormalities after his angiogram and was diagnosed with left MCA stroke (MRI showed chronic infarct in the left frontal lobe and chronic lacunar infarct in the head of the left caudate nucleus, and bilateral hypodensities - CTA of head and neck showed short segment occlusion of A2 segment of right anterior cerebral artery). He was started on dual antiplatelet therapy (aspirin and Plavix) for his stroke. He was recently admitted to the hospital from July 15- with intermittent right side weakness for few weeks. MRI of brain showed no acute infarct (chronic left frontal encephalomalacia and chronic left caudate lacunar infarct). CTA of head and neck showed new segmental occlusion of the proximal left A2, stable chronic segmental occlusion of the proximal right A2 segment, and severe stenosis of the left posterior M2 origin (increased in severity from before). Given the concern of new transient ischemic attack in setting of bilateral anterior cerebral artery occlusion it was recommended to transition to aspirin, Brilinta. However, according to patient's daughter, Brilinta was not covered through insurance until neurology follow-up and he is still taking aspirin, Plavix at this time. She reports that he has an upcoming appointment on August 08. He presents here with episodes of right-sided weakness with arching of his back, and right gaze deviation. Symptoms concerning for seizures with Chris's paralysis. Initial potassium was 3.5. CT head was nonacute. No signs of sepsis. He was evaluated by neurology and they have recommended initiation of Keppra 750 mg twice daily Discussed with neurology on 08/02/2023, from their standpoint, patient can be discharged home today and they will follow-up in the seizure clinic. They will arrange follow-up on Keppra level in about a week. Currently, patient is back to baseline without any residual right-sided weakness. Daughter is at bedside and plan of care discussed with them. Patient was instructed not to drive until cleared by neurology. He verbalized understanding. 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 Recommended to continue with Keppra 750 mg twice daily and they will follow- up with him as an outpatient No driving until further instructed by neurology, discussed with patient. Outpatient follow-up for Keppra levels, to be arranged by neurology Monitor for recurrence of symptoms while on Keppra Hypertension (I10): - Hyperlipidemia (E78.5): - Coronary artery disease (I25.10): RCA stent in 2004 - coronary angiogram in 2022 showed total occlusion of RCA and non-obstructive disease of LAD and LCx. - continue amlodipine, carvedilol, Imdur, and losartan. - continue aspirin and statin. History of left MCA stroke (Z86.73): - He was diagnosed with left MCA stroke in October 2022 after his coronary angiogram. CTA of head and neck showed short segment occlusion of A2 segment of right anterior cerebral artery. Recent CT angiogram of head and neck showed new segmental occlusion of the proximal left A2, stable chronic segmental occlusion of the proximal right A2 segment, and severe stenosis of the left posterior M2 origin (increased in severity from before). MRI with no acute stroke. -Recent recommendation was to switch Plavix to Brilinta, however due to insurance reasons patient has not started this and is planning to follow-up on August 08. Discussed with neurology and made them aware. From their standpoint, okay to continue aspirin, Plavix until August 08 and then can discuss with neurology as an outpatient. - continue statin. PMH: Active problems - Computerized Problem List is the source for the followin. Coronary artery disease 2. Gastro-esophageal reflux 3. Peripheral arterial occlusive disease 4. History of placement of stent in anterior descending branch of left coronary 5. Type 2 diabetes mellitus 6. Acute non-ST segment elevation myocardial infarction 7. Right sided weakness 8. Seizure 9. Hypertensive disorder 10. H/O: Stroke in last year 11. Obstructive sleep apnea syndrome Allergies: Patient has answered NKA The following VA and Non-VA meds were reconciled with patient. The patient was educated on the use of the medications including indication and side effects. Active and Recently Outpatient Medications (excluding Supplies): Pending Outpatient Medications Status 1) ATORVASTATIN CALCIUM 80MG TAB TAKE ONE-HALF TABLET BY PENDING MOUTH ONCE DAILY 2) CARVEDILOL 6.25MG TAB TAKE ONE TABLET BY MOUTH TWICE PENDING DAILY 3) CLOPIDOGREL BISULFATE 75MG TAB TAKE ONE TABLET BY PENDING MOUTH ONCE DAILY 4) GLIPIZIDE 10MG TAB TAKE ONE TABLET BY MOUTH TWICE PENDING DAILY 5) LEVETIRACETAM 750MG TAB TAKE ONE TABLET BY MOUTH PENDING TWICE DAILY 6) LOSARTAN 25MG TAB TAKE ONE TABLET BY MOUTH ONCE DAILY PENDING FOR BLOOD PRESSURE/HEART 7) MONTELUKAST NA 10MG TAB TAKE ONE TABLET BY MOUTH ONCE PENDING DAILY FOR ASTHMA 8) OMEPRAZOLE 20MG EC CAP TAKE TWO CAPSULES BY MOUTH PENDING TWICE DAILY BEFORE A MEAL 9) SERTRALINE HCL 50MG TAB TAKE ONE-HALF TABLET BY MOUTH PENDING ONCE DAILY 10) SUCRALFATE 1GM TAB TAKE ONE TABLET BY MOUTH TWICE PENDING DAILY NEEDED Review of Systems: Constitutional: (-)for Fevers, chills, weakness, nights sweats On examination: 98.2 F [36.8 C] (10/16/2023 15:08)120/62 (10/16/2023 15:08)74 (10/16/2023 15:08)16 (10/16/2023 15:08)9 (10/16/2023 15:08)BMI: 33.4212.6 lb [96.43 kg] (10/16/2023 15:08) [place] is alert and oriented X3 Cardiovasc: 2plus carotids without bruits, no JVD Heart Reguler rate and rhythm NL S1S2 no S3 or murmur Respiration: Normal respiratory effort, lungs clear ABD: Benign normal active bowel sounds no HSM no rebound or referred pain EXT: no clubbing, edema, or cyanosis Neuro:grossly non-focal reflexes symmetric bilat, toes downgoing, CN 2 to 10 intact Derm: no worrisome lesions, rashes or ulcers : LAB RESULTS LAST 1440 HRS - NONE FOUND All diagnostics from past month were reviewed with patient. Assessment/plan: Active problems - Computerized Problem List is the source for the followin. Coronary artery disease 2. Gastro-esophageal reflux 3. Peripheral arterial occlusive disease 4. History of placement of stent in anterior descending branch of left coronary 5. Type 2 diabetes mellitus 6. Acute non-ST segment elevation myocardial infarction 7. Right sided weakness 8. Seizure 9. Hypertensive disorder 10. H/O: Stroke in last year 11. Obstructive sleep apnea syndrome Review of medial record = 5mins Time spent with Patient including shared decision making = 30 mins Post visit documentation = 5mins Total time = 40 mins Follow up visit in 3 mos. Alert to PACT RN - Labs as necessary to address clinical status. Medication Reconciliation: Outpatient: Has the patient been taking medications as documented in the EMLR? YES: The patient has been taking medications as documented in the EMLR. Essential Medication List for Review used to complete this medication reconciliation. INCLUDED IN THIS LIST: Alphabetical list of active outpatient prescriptions dispensed from this MD (local) and dispensed from another MD or [facility] facility (remote) as well as inpatient orders [...] whether with a VA or non-VA provider. /yohana/ Rome Savage DNP, [employer]AREHOU[employer] GENERAL LABORER-BC, CNL Primary Care Nurse Practitioner Signed: 10/25/2023 10:47 ROME SAVAGE [facility] Oct 16, 2023 03:10 PM PREVENTIVE MEDICINE NURSING NOTE: LOCAL TITLE: CLINICAL REMINDERS/NURSING STANDARD TITLE: PREVENTIVE MEDICINE NURSING NOTE DATE OF NOTE: OCT 16, 2023@15:10 ENTRY DATE: OCT 16, 2023@15:10:49 AUTHOR: JORDY HALL COSIGNER: URGENCY: STATUS: COMPLETED Falls & Incontinence Screen: Falls Screen: During the past 12 months, did the patient report any falls? 4. No falls within the past year. Incontinence Screen No incontinence. /yohana/ JORDY HLAL LPN Signed: 10/16/2023 15:11 JORDY HALL [facility]
--- OUTSIDE RECORDS SUMMARY | 2024-06-17 10:18 | XMS_ITS ---
Author Name [facility] [place] Organization [place] Address [address] [place] [id number] Care Team Providers Care Heel Gouger Name Role Phone ELOINA MOORE Primary [facility] Insurance Providers: All historical [...] PART A Feb 06, 2005 PART A [id number] DEXTER MORAN PATIENT MEDICARE (WNR) MEDICARE (M) PART B Feb 06, 2005 PART B [id number] DEXTER MORAN PATIENT Selected Encounter This section includes the information on record at [place] for the Encounter. Date/Time Encounter Type Encounter Description Reason Provider Source Mar 20, 2024 08:00 AM HEARING AID EXAM BOTH EARS AUDIOLOGY ICD-10-CM H90.3 Sensorineural hearing loss, bilateral VAIBHAV KEARNEY Encounter Template Text not used by VA Assessments - Encounter Diagnoses This section includes the primary and secondary diagnoses documented for the Encounter. Date/Time Primary/Secondary Diagnosis Diagnosis Name Provider Source Mar 20, 2024 08:45 AM PRIMARY Sensorineural hearing loss, bilateral CAIO,VAIBHAV Y [facility] Plan of Treatment: Future Appointments (+ 6 months) and Future Tests (+/- 45 days) The Plan of Treatment section includes future care activities for the patient [facility] This section includes future appointments and future orders which are active, pending or scheduled. Future Appointments This section includes appointments that were scheduled to occur 6 months from the date of the Encounter, up to a maximum of 20 appointments. The data comes from all [facility]. Appointment Date/Time Appointment Type Appointme nt Facility Name Apr 13, 2024 10:30 AM AM[facility]ULAT[facility] Apr 17, 2024 10:00 AM [facility]ULAT[facility] [place] [facility] May 27, 2024 01:30 PM AMBULATORY - MEDICINE [facility] [place] [facility] Jun 10, 2024 11:30 AM AMBULATORY - MEDICINE [facility] [place] [facility] Jun 10, 2024 01:30 PM AMBULATORY - MEDICINE [facility] [place] [facility] Jun 18, 2024 01:00 PM AMBULATORY - REHAB MEDICIN E [facility] [place] [facility] Jul 22, 2024 11:30 AM AMBULATORY - MEDICINE [facility] [place] [facility] August 19, 2024 10:40 AM AMBULATORY - MEDICINE [facility] Active, Pending, and Scheduled Orders [...] 12, 2024 02:31 PM Consult Order [facility] Cons [facility] Social History: Smoking Status (Most current) [...] F acility August 16, 2023 11:14 AM [place]-TOBACCO QUIT 15 YRS OR MORE [facility] Encounter Notes: All associated encounter notes This section contains the clinical notes associated to the Encounter. Date/Time Encounter Note(s) Provider Source Mar 20, 2024 07:15 AM AUDIOLOGY E & M NOTE: LOCAL TITLE: AUDIOLOGY CLINIC STANDARD TITLE: AUDIOLOGY E & M NOTE DATE OF NOTE: MAR 20, 2024@07:15 ENTRY DATE: MAR 20, 2024@07:15:37 AUTHOR: CRUZ KEARNEY COSIGNER: URGENCY: STATUS: COMPLETED AUDIOLOGY CLINIC Has ADDENDA Dx CODE: H90.3-Sensorineural Hearing Loss, Bilateral APPOINTMENT TYPE: Hearing Evaluation and Hearing Aid Selection BACKGROUND/HISTORY: was seen 03/20/24 for an initial hearing evaluation and hearing aid selection appointment, accompanied by his daughter. [place] reports he recently was tested at [facility], but due to the cost of the hearing aids decided to come to the [place]. He has tried PSAPs before, but denies previous use of hearing aids. He denies tinnitus, vertigo, and a significant otologic history. He denies noise exposure. He is positive for occupational noise exposure (machines) and recreational noise exposure (hunting). ASSESMENT: Results of today's testing are as follows: Otoscopy was WNL bilaterally. Normal tympanograms obtained bilaterally. Pure tone audiometric testing under headphones in the right ear revealed a moderate sloping to severe SNHL 250-8000Hz. Testing in the left ear revealed a mild sloping to profound SNHL 250-8000Hz. SRT WORD RECOGNITION (Recorded [place] CNC 1/2 Word List) Right 50dBHL 76% @ 85dBHL/60dBm Left 45dBHL 76% @ 85dBHL/60dBm HEARING AID SELECTION: Different hearing aid options were discussed. He is interested in rechargeable technology and does not have a pacemaker. Nicolasa Coreas AI HSs were selected and ordered in RO. Impressions were taken without incident and with 's verbal consent. EDUCATION/COUNSELING: The patient was counseled re: today's hearing test results. He demonstrated satisfactory understanding of the education and plan, and was given the opportunity to ask questions throughout today's visit. PLAN: 1. RTC on 04/17/24 at 10AM for 60 minute hearing aid fitting appointment. 2. Hearing re-evaluation in 3-5 years, or sooner if change in hearing occurs. * Patient Education Education provided on the following topics: Hearing test results Education provided to: P, F Response to Education: VU Cortes Patient P Family F Significant Other SO Verbalizes Understanding VU Returns Demonstration RD Performs Independently PI Lacks Comprehension LC Refused Education RE Not Applicable NA * /yohana/ CRUZ KEARNEY STAFF CREDIT VERIFICATION CLERK Signed: 03/20/2024 08:46 Receipt Acknowledged By: 03/20/2024 08:49 /yohana/ TRISTAN CALDWELL LEAD VIDEO TAPE DUPLICATOR 03/30/2024 ADDENDUM STATUS: COMPLETED Hearing aids received and certified, upcoming appointment scheduled on 04/17/2024. /es/ SERJIO DANIELLE GARGUILO Audiology Health Proposal Analyst Signed: 03/30/2024 15:16 CRUZ KEARNEY CNTRL [facility]
--- OUTSIDE RECORDS SUMMARY | 2024-06-17 10:19 | XMS_ITS | Continuity of Care Document ---
Author Organization [facility] ter Address [address] [place] [phone] Care Team Providers Care Ux Visual Designer Name Role Phone Gilbert Francis MD Primary Care Physician [place] [facility] [place]18[place] - 05/24/[address] [id number] Attending Physician: Eliceo Mccollum MD Admitting Physician: Eliceo Mccollum MD Referring Physician: Eliceo Mccollum MD Encounter Type: Pre-Outpt Allergies, Adverse Reactions, Alerts No Known Allergies Medications apixaban 5 mg oral tablet = 5 mg, By Mouth, 2 times a day, # 60 tablet, 0 Refills, Maintenance, 05/02/24 12:35:00 PM EST, Tablet, [facility], Partial fill upon patient [...] 3:18:00 PM EDT, Route to Pharmacy Electronically, [id number], Partial fill upon patient [...] Team Personnel Name: Gilbert Francis MD Position: [facility] Outreach Member Role: PCP Address: [address] [place] [address] [place] [address]- Telecom: Name: Bart Bustillo RN Position: [facility] RN Member Role: Primary Care Nurse Name: Radha El RN Position: [facility] RN Member Role: Primary Care Nurse Name: Caryn Luo RN Position: [facility] RN Member Role: Primary Care Nurse Name: Bishnu Kwan RN Position: [facility] RN Member Role: Primary Care Nurse Name: Kylee David LPN Position: [facility] RN Member Role: Primary Care Nurse Name: Alejandra Johnson RN Position: [facility] RN Member Role: Primary Care Nurse Care Team Related Persons Name: MATTHIEU RAMIREZ Name: DEXTER MORAN Insurance Providers Guarantor name: DEXTER MORAN [facility] Plan Information #: 1 Payer: MEDICARE PART B OUTPT Member Number: [id number] Policy Number: NA Group Number: NA Health Plan Information #: 2 Payer: AARP PPO MCARE ADV Member Number: [id number] Policy Number: NA Group Number: [id number]
--- OUTSIDE RECORDS SUMMARY | 2024-06-17 10:19 | XMS_ITS ---
Author Name [facility] Organization [facility] Address [address] [place] [address] Care Team Providers Care Package Crimper Name Role Phone ELOINA MOORE [facility] Providers: All historical and [...] PART A Feb 06, 2005 PART A [id number] DEXTER MORAN PATIENT MEDICARE (WNR) MEDICARE (M) PART B Feb 06, 2005 PART B [id number] [phone] DEXTER MORAN PATIENT Selected Encounter This section includes the information on record at MD for the Encounter. Date/Time Encounter Type Encounter Description Reason Pro vider Source Apr 20, 2024 11:07 AM Outpatient Encounter ADMIN PAT ACTIVTIES (MASNONCT) IHE Encounter Template Text not used by MD Plan of Treatment: Future Appointments (+ 6 [...] 20 appointments. The data comes from all [facility] facilities. Appointment Date/Time Appointment Type Appointme nt Facility Name May 27, 2024 01:30 PM AMBULATORY - MEDICINE [facility] [place] [facility] Jun 10, 2024 11:30 AM [facility] Jun 10, 2024 01:30 PM [facility] Jun 18, 2024 01:00 PM AMBULATORY - REHAB MEDICIN [facility] Jul 22, 2024 11:30 AM AMBULATORY - MEDICINE [facility] [place] [facility] August 19, 2024 10:40 AM AMBULATORY - MEDICINE [facility] Oct 12, 2024 11:00 AM [facility] Active, Pending, and Scheduled Orders This section includes a listing of several types of active, pending, and scheduled orders, including clinic medications orders, diagnostic test orders, procedure orders and consult orders; where the start date of the order is 45 days before the date of the Encounter or 45 days after the date of theEncounter. The data comes from all [facility]. Test Date/Time Test Type Test Details Facility Name Mar 12, 2024 02:31 PM Consult Order [facility]-SLEEP MEDICINE Cons Patient Office Rep's Choice [facility] Lab Results: +/- 30 days [...] Range Comment May 20, 2024 01:32 PM [facility] CBC Specimen Type: BLOOD No comment entered. Ordering Provider: RHONDA MOORE AM Report Released Date/Time: Mar 26, 2024 03:22 PM Reporting Lab: [facility] [address] [facility] [address] Performing Lab: [facility] [address] [facility] [address] WBC 6.58 10*3/uL 4.50-11.00 RBC 3.94 10*6/uL L 4.23-5.66 HGB 11.2 g/dL L 12.8-17 HCT 33.9 L 39.2-50.4 MCV 86.0 fL 82-99 MCHC 33.0 g/dL 30.8-35.1 PLT 226 10*3/uL 140-360 RDW-CV 14.2 12.0-16.0 MCH 28.4 pg 26.2-32.6 May 20, 2024 01:32 PM [facility] LIPID PANEL, NON FASTING Specimen Type: SERUM Comment: *UREA NITROGEN Not Performed: May 20, 2024@15:11 by [id number] *EMERGENCY CARE TECH Reason: DUP *GLUCOSE Not Performed: May 20, 2024@15:11 by [id number] *EMERGENCY CARE TECH Reason: DUP *SODIUM Not Performed: May 20, 2024@15:11 by [id number] *EMERGENCY CARE TECH Reason: DUP *POTASSIUM Not Performed: May 20, 2024@15:11 by [id number] *EMERGENCY CARE TECH Reason: DUP *CHLORIDE Not Performed: May 20, 2024@15:11 by [id number] *EMERGENCY CARE TECH Reason: DUP *CO2 Not Performed: May 20, 2024@15:11 by [id number] *EMERGENCY CARE TECH Reason: DUP *CREATININE (eGFR 2020) Not Performed: May 20, 2024@15:11 by [id number] *EMERGENCY CARE TECH Reason: DUP Ordering Provider: RHONDA MOORE AM Report Released Date/Time: Mar 26, 2024 03:22 PM Reporting Lab: [facility] [address] [facility] [address] Performing Lab: [facility] [address] [facility] [address] CHOLESTEROL 141 mg/dL TRIGLYCERIDE 205 mg/dL H 0-150 LDL calculated 57 mg/dL 0-129 CHOL/HDL 3.3 HDL CHOLESTEROL 43 mg/dL 40-60 May 20, 2024 01:32 PM [facility] LIVER FUNCTION Specimen Type: SERUM Comment: *UREA NITROGEN Not Performed: May 20, 2024@15:11 by [id number] *EMERGENCY CARE TECH Reason: DUP *GLUCOSE Not Performed: May 20, 2024@15:11 by [id number] *EMERGENCY CARE TECH Reason: DUP *SODIUM Not Performed: May 20, 2024@15:11 by [id number] *EMERGENCY CARE TECH Reason: DUP *POTASSIUM Not Performed: May 20, 2024@15:11 by [id number] *EMERGENCY CARE TECH Reason: DUP *CHLORIDE Not Performed: May 20, 2024@15:11 by [id number] *EMERGENCY CARE TECH Reason: DUP *CO2 Not Performed: May 20, 2024@15:11 by [id number] *EMERGENCY CARE TECH Reason: DUP *CREATININE (eGFR 2020) Not Performed: May 20, 2024@15:11 by [id number] *EMERGENCY CARE TECH Reason: DUP Ordering Provider: RHONDA MOORE AM Report Released Date/Time: Mar 26, 2024 03:22 PM Reporting Lab: [address] [address] Performing Lab: [address] [address] PROTEIN,TOTAL 6.7 g/dL 6.0-8.3 ALBUMIN 3.8 g/dL 3.5-5.0 ALKALINE PHOSPHATASE 83 U/L 40-150 AST 13 U/L 5-34 ALT 15 U/L BILIRUBIN, TOTAL 0.4 mg/dL 0.2-1.2 May 20, 2024 01:32 PM [facility] PT & INR (PROTIME) Specimen Type: PLASMA No comment entered. Ordering Provider: RHONDA MOORE AM Report Released Date/Time: Mar 26, 2024 03:22 PM Reporting Lab: [address] [address] Performing Lab: [address] [address] INR 1.5 PROTIME 16.0 s H 10.0-13.1 May 20, 2024 01:32 PM [facility] HEMOGLOBIN A1C PANEL Specimen Type: BLOOD [...] Mar 26, 2024 03:22 PM Reporting Lab: [address] [address] Performing Lab: [address] [address] HEMOGLOBIN A1C 8.6 H 4.0-5.6 May 20, 2024 01:32 PM [facility] BASIC METABOLIC PANEL (non-fasting) Specimen Type: SERUM No comment entered. Ordering Provider: ADAIR APODACA Report Released Date/Time: May 18, 2024 08:18 AM Reporting Lab: [address] [address] Performing Lab: [address] [address] UREA NITROGEN 17 mg/dL 7-25 GLUCOSE 158 mg/dL H 65-100 SODIUM 137 mmol/L 135-145 POTASSIUM 4.1 mmol/L 3.5-5.0 CHLORIDE 106 mmol/L 100-110 CO2 24 meq/L 20-30 CREATININE, Serum 0.83 mg/dL 0.50-1.40 eGFR(CKD-EPI 2020) 86 mL/min >60 May 20, 2024 01:32 PM [facility] MICROALBUMIN CREATININE RATIO PANEL Specimen Type: URINE No comment entered. Ordering Provider: ADAIR APODACA Report Released Date/Time: May 18, 2024 08:18 AM Reporting Lab: [address] [address] Performing Lab: [address] [address] MICROALBUMIN/C REATININE RATIO 19.1 mg/g 0-29.9 MICROALBUMIN,Q [...] Facil ity August 16, 2023 11:14 AM MD-TOBACCO FORMER USER [facility] Tobacco Use History This section includes a history of the smoking, or tobacco-related health factors, that were collected on or before the date of the Encounter. The data comes from the MD facility where the Encounter took place. Date/Time Smoking Status/Tobacco Use Comment F acility August 16, 2023 11:14 AM MD-TOBACCO QUIT 15 YRS OR MORE [facility] Encounter Notes: All associated encounter notes This section contains the clinical notes associated to the Encounter. Date/Time Encounter Note(s) Provider Source Apr 12, 2024 12:01 AM CLINICAL WARNING: LOCAL TITLE: COMMUNICATION AUTHORIZATION STANDARD TITLE: CLINICAL WARNING DATE OF NOTE: APR 12, 2024@00:01 ENTRY DATE: APR 20, 2024@11:08:23 AUTHOR: FRANCIS ELLINGTON COSIGNER: URGENCY: STATUS: COMPLETED Family/Caregiver Name: Primary: MATTHIEU BRADSHAW Secondary: DEXTER MORAN JR Tertiary: CANDICE Chan Clinic & Topics: All Clinic's & Topics: All Care/Coordination, Scheduling Appointments, Prescriptions, Test Results Primary Care: All Care/Coordination, Scheduling Appointments, Prescriptions, Test Results Mental Health: All Care/Coordination, Scheduling Appointments, Prescriptions, Test Results Specialty Care: All Care/Coordination, Scheduling Appointments, Prescriptions, Test Results [id number] Protected Info: [X] Drug Abuse [X] Alcohol Abuse [X] HIV [X] Sickle Cell Expiration: Date: [ ] At [X] Through [ ] At end of care /yohana/ FRANCIS ELLINGTON Signed: 04/20/2024 11:10 FRANCIS ELLINGTON [facility]
--- OUTSIDE RECORDS SUMMARY | 2024-06-17 10:19 | XMS_ITS | Continuity of Care Document ---
Author Name [facility] Organization [facility] Care Team Providers Care Fitter Armament Name Role Phone [facility] Unavailable Unavailable Problems Combined list of problems from Department of Defense and Veterans Affairs facilities. It does not include entries that were removed or entered in error. Problem Status Onset Date Problem Type Date of Resolution Comments Source Acute non-ST segment elevation myocardial infarction Active 3 Condition [facility] Right sided weakness Active 3 Condition [facility] Atrial fibrillation Active Condition [facility] COPD - Chronic Obstructive Pulmonary Disease ([facility] [id number]) Active Condition [facility] Coronary artery disease Active Condition [facility] Gastro-esophageal reflux Active Condition [facility] H/O: Stroke in last year Active Condition [facility] History of placement of stent in anterior descending branch of left coronary artery Active Condition [facility] Hypertensive disorder Active Condition [facility] Long-term current use of anticoagulant Active Condition [facility] Low back pain Active Condition [facility] Obstructive sleep apnea syndrome Active Condition [facility] Peripheral arterial occlusive disease Active Condition [facility] Seizure Active Condition [facility] Type 2 diabetes mellitus Active Condition [facility] Diagnosis: ICD-10-CM Z51.81 Encounter for therapeutic drug level monitoring Active Diagnosis [facility] Diagnosis: ICD-10-CM E11.9 Type 2 diabetes mellitus without complications Active Diagnosis [facility] Diagnosis: ICD-10-CM I10 Essential (primary) hypertension Active Diagnosis [facility] Diagnosis: ICD-10-CM Z46.1 Encounter for fitting and adjustment of hearing aid Active Diagnosis [facility] Diagnosis: ICD-10-CM R06.00 Dyspnea, unspecified Active Diagnosis [facility] Diagnosis: ICD-10-CM H90.3 Sensorineural hearing loss, bilateral [facility] Diagnosis: ICD-10-CM I25.10 Athscl heart disease [place] coronary artery w/o ang pctrs Active Diagnosis [facility] Medications Combined list of outpatient medications from Department of Defense and Veterans Affairs facilities.Medications provided include 1) outpatient medications from the last 15 months, and 2) patient-reported medications. Medication Details Route Status Patient Instructions Prescription Expires Prescription Number Last Dispense Date Ordering Provider Order Date Order Qty Source ALBUTEROL 90MCG/ACTUA T (CFC-F) INHL,ORAL,8 .5GM DOSE COUNTER INHALE 2 PUFFS BY MOUTH EVERY 4 HOURS NEEDED FOR BRONCHOS PASM RESPIR ATORY (INHAL ATION) ACTIVE 04/14/2025 [id number] ELOINA MOORE 2024 1 [facility] APIXABAN 5MG TAB TAKE ONE TABLET BY MOUTH EVERY 12 HOURS ORAL ACTIVE 06/05/2025 [id number] 5 ELOINA MOORE 2024 180 [facility] ATORVASTATI N CA 80MG TAB TAKE ONE-HALF TABLET BY MOUTH ONCE DAILY ORAL SUSPEND ED 04/14/2025 [id number] 5 [facility]LO[facility]ORE 2024 [facility] ATORVASTATI N CA 80MG TAB TAKE ONE-HALF TABLET BY MOUTH ONCE DAILY ORAL DISCONT INUED 10/16/2024 [id number] 5 ELOINA MOORE 2023 [facility] CARVEDILOL 6.25MG TAB TAKE ONE TABLET BY MOUTH TWICE DAILY ORAL DISCONT INUED BY PROVIDE R 04/14/2025 [id number] 5 ELOINA MOORE 2024 180 [facility] CARVEDILOL 6.25MG TAB TAKE ONE TABLET BY MOUTH TWICE DAILY ORAL DISCONT INUED 10/16/2024 [id number] 5 ELOINA MOORE 2023 180 [facility] CLOPIDOGREL BISULFATE 75MG TAB TAKE ONE TABLET BY MOUTH ONCE DAILY ORAL SUSPEND ED 04/14/2025 [id number] 5 ELOINA MOORE 2024 90 [facility] CLOPIDOGREL BISULFATE 75MG TAB TAKE ONE TABLET BY MOUTH ONCE DAILY ORAL DISCONT INUED 10/16/2024 [id number] 5 ELOINA MOORE 2023 90 [facility] FLUTICASONE PROPIONATE 50MCG/SPRAY SOLN,NASAL, 16GM INSTILL 1 SPRAY INTO EACH NOSTRIL TWICE DAILY FOR NASAL IRRITATI ON/INFLA MMATION NASAL ACTIVE 04/14/2025 [id number] 5 ELOINA MOORE 2024 3 [facility] GLIPIZIDE 10MG TAB TAKE ONE TABLET BY MOUTH TWICE DAILY ORAL SUSPEND ED 04/14/2025 [id number] 5 ELOINA MOORE 2024 180 [facility] GLIPIZIDE 10MG TAB TAKE ONE TABLET BY MOUTH TWICE DAILY ORAL DISCONT INUED 10/16/2024 [id number] 5 ELOINA MOORE 2023 180 [facility] LEVETIRACET AM 500MG TAB TAKE ONE TABLET BY MOUTH TWICE DAILY FOR PARTIAL SEIZURES ORAL ACTIVE 04/14/2025 [id number] 5 ELOINA MOORE 2024 120 [facility] LEVETIRACET AM 750MG TAB TAKE ONE TABLET BY MOUTH TWICE DAILY FOR PARTIAL SEIZURES ORAL DISCONT INUED (EDIT) 10/16/2024 [id number] 4 ELOINA MOORE 2023 180 [facility] LOSARTAN 25MG TAB TAKE ONE TABLET BY MOUTH ONCE DAILY FOR BLOOD PRESSURE /HEART ORAL DISCONT INUED BY PROVIDE R 04/14/2025 [id number] 5 ELOINA MOORE 2024 90 [facility] LOSARTAN 25MG TAB TAKE ONE TABLET BY MOUTH ONCE DAILY FOR BLOOD PRESSURE /HEART ORAL DISCONT INUED 10/16/2024 [id number] 5 ELOINA MOORE 2023 90 [facility] METOPROLOL SUCCINATE 25MG TAB,SA TAKE ONE TABLET BY MOUTH ONCE DAILY FOR BLOOD PRESSURE /HEART ORAL ACTIVE 06/04/2025 [id number] 5 ELOINA MOORE 2024 90 [facility] MONTELUKAST NA 10MG TAB TAKE ONE TABLET BY MOUTH ONCE DAILY FOR ASTHMA ORAL ACTIVE 04/14/2025 [id number] 5 ELOINA MOORE 2024 90 [facility] MONTELUKAST NA 10MG TAB TAKE ONE TABLET BY MOUTH ONCE DAILY FOR ASTHMA ORAL DISCONT INUED 10/16/2024 [id number] 4 ELOINA MOORE 2023 90 [facility] OMEPRAZOLE 20MG CAP,EC TAKE TWO CAPSULES BY MOUTH TWICE DAILY BEFORE A MEAL ORAL SUSPEND ED 04/14/2025 [id number] 5 ELOINA MOORE 2024 360 [facility] OMEPRAZOLE 20MG CAP,EC TAKE TWO CAPSULES BY MOUTH TWICE DAILY BEFORE A MEAL ORAL DISCONT INUED 10/16/2024 [id number] 5 ELOINA MOORE 2023 360 [facility] SERTRALINE HCL 50MG TAB TAKE ONE-HALF TABLET BY MOUTH ONCE DAILY ORAL SUSPEND ED 04/14/2025 [id number] 5 MOORE ELOINA Ponce 2024 45 [facility] SERTRALINE HCL 50MG TAB TAKE ONE-HALF TABLET BY MOUTH ONCE DAILY ORAL DISCONT INUED 10/16/2024 [id number] 5 MOOREELOINA Rosario 2023 45 [facility] SUCRALFATE 1GM TAB TAKE ONE TABLET BY MOUTH TWICE DAILY NEEDED FOR ULCER ORAL ACTIVE 10/16/2024 [id number] MOORE ELOINA Ponce 2023 180 [facility] Allergies, Adverse Reactions, Alerts Combined list of allergies from Department of Defense and Veterans Affairs facilities. It does not include entries that were removed or entered in error. Substance Category Reaction Severity Reaction type Status Date Reported Comments Source METFORMIN Propensity to adverse reactions to drug (finding) Diarrhea MILD [facility] Immunizations Combined list of available immunizations from the Department of Defense and Veterans Affairs facilities. Immunization Series Date Given Administered By Site Reaction Lot Number CVX Code Drug Salt Cutter Status Comments Source COVID-19 (MODERNA), MRNA, LNP-S, PF, 50 MCG/0.5 ML (AGES 12+ YEARS) 2024 KRISTINA CALLEA RIGHT DELTO ID [id number] complet ed [facility] INFLUENZA, HIGH-DOSE, TRIVALENT, PF 2024 KRISTINA CALLEA LEFT DELTO ID [id number] 135 complet ed [facility] INFLUENZA, UNSPECIFIED FORMULATION 2022 88 complet ed [facility] Results Combined list of recent chemistry, hematology and other laboratory results from Department of Defense and Veterans Affairs, ranging from 15 months to all on record, depending upon the facility. Order Name Results Value Reference Range Date Interpretation Specimen Comments Source CBC LEUKOCYTES [#/VOLUME] IN BLOOD BY AUTOMATED COUNT 6.58 10*3/u L 4.50 - 11.00 05/20 Specimen Type: BLOOD No comment entered. Ordering Provider: LIAM MOORE Report Released Date/Time: Mar 26, 2024 03:22 PM Reporting Lab: [facility] [address] [facility] [address] Performing Lab: [facility] [address] [facility] [address] [facility] CBC ERYTHROCYTE S [#/VOLUME] IN BLOOD BY AUTOMATED COUNT 3.94 10*6/u L 4.23 - 5.66 05/20 L Specimen Type: BLOOD No comment entered. Ordering Provider: LIAM MOORE Report Released Date/Time: Mar 26, 2024 03:22 PM Reporting Lab: [facility] [place] [facility] [address] [facility] [address] Performing Lab: [facility] [place] [address] [address] [facility] CBC HEMOGLOBIN [MASS/VOLUM E] IN BLOOD 11.2 g/dL 12.8 - 17 05/20 L Specimen Type: BLOOD No comment entered. Ordering Provider: LIAM MOORE Report Released Date/Time: Mar 26, 2024 03:22 PM Reporting Lab: [facility] [place] [facility] [address] [facility] [address] Performing Lab: [facility] [place] [address] [address] [facility] CBC HEMATOCRIT [VOLUME FRACTION] OF BLOOD BY AUTOMATED COUNT 33.9 39.2 - 50.4 05/20 L Specimen Type: BLOOD No comment entered. Ordering Provider: LIAM MOORE Report Released Date/Time: Mar 26, 2024 03:22 PM Reporting Lab: [facility] [place] [facility] [address] [facility] [address] Performing Lab: [facility] [place] [address] [address] [facility] CBC MCV [ENTITIC VOLUME] BY AUTOMATED COUNT 86.0 fL 82 - 99 05/20 Specimen Type: BLOOD No comment entered. Ordering Provider: LIAM MOORE Report Released Date/Time: Mar 26, 2024 03:22 PM Reporting Lab: [facility] [place] [facility] [address] [facility] [address] Performing Lab: [facility] [place] [facility] [address] [facility] [address] [facility] CBC MCHC [MASS/VOLUM E] BY AUTOMATED COUNT 33.0 g/dL 30.8 - 35.1 05/20 Specimen Type: BLOOD No comment entered. Ordering Provider: LIAM MOORE Report Released Date/Time: Mar 26, 2024 03:22 PM Reporting Lab: [facility] [place] [facility] [address] [facility] [address] Performing Lab: [facility] [place] [facility] [address] [facility] [address] [facility] CBC PLATELETS [#/VOLUME] IN BLOOD BY AUTOMATED COUNT 226 10*3/u L 140 - 360 05/20 Specimen Type: BLOOD No comment entered. Ordering Provider: LIAM MOORE Report Released Date/Time: Mar 26, 2024 03:22 PM Reporting Lab: [facility] [place] [facility] [address] [facility] [address] Performing Lab: [facility] [place] [facility] [address] [facility] [address] [facility] CBC ERYTHROCYTE DISTRIBUTIO N WIDTH [RATIO] BY AUTOMATED COUNT 14.2 12.0 - 16.0 05/20 Specimen Type: BLOOD No comment entered. Ordering Provider: LIAM MOORE Report Released Date/Time: Mar 26, 2024 03:22 PM Reporting Lab: [facility] [place] [facility] [address] [facility] [address] Performing Lab: [facility] [place] [facility] [address] [facility] [address] [facility] CBC MCH [ENTITIC MASS] BY AUTOMATED COUNT 28.4 pg 26.2 - 32.6 05/20 Specimen Type: BLOOD No comment entered. Ordering Provider: LIAM MOORE Report Released Date/Time: Mar 26, 2024 03:22 PM Reporting Lab: [facility] [address] [facility] [address] Performing Lab: [facility] [address] [facility] [address] [facility] LIPID PANEL, NON FASTING CHOLESTEROL [MASS/VOLUM E] IN SERUM OR PLASMA 141 mg/dL 05/20 Specimen Type: SERUM Comment: *UREA NITROGEN Not Performed: May 20, 2024@15:11 by [id number] *ZIPPER LINING FOLDER Reason: DUP *GLUCOSE Not Performed: May 20, 2024@15:11 by [id number] *ZIPPER LINING FOLDER Reason: DUP *SODIUM Not Performed: May 20, 2024@15:11 by [id number] *ZIPPER LINING FOLDER Reason: DUP *POTASSIUM Not Performed: May 20, 2024@15:11 by [id number] *ZIPPER LINING FOLDER Reason: DUP *CHLORIDE Not Performed: May 20, 2024@15:11 by [id number] *ZIPPER LINING FOLDER Reason: DUP *CO2 Not Performed: May 20, 2024@15:11 by [id number] *ZIPPER LINING FOLDER Reason: DUP *CREATININE (eGFR 2020) Not Performed: May 20, 2024@15:11 by [id number] *ZIPPER LINING FOLDER Reason: DUP Ordering Provider: LIAM MOORE Report Released Date/Time: Mar 26, 2024 03:22 PM Reporting Lab: [facility] [address] [facility] [address] Performing Lab: [address] [address] [facility] LIPID PANEL, NON FASTING TRIGLYCERID E [MASS/VOLUM E] IN SERUM OR PLASMA 205 mg/dL 0 - 150 05/20 H Specimen Type: SERUM Comment: *UREA NITROGEN Not Performed: May 20, 2024@15:11 by [id number] *ZIPPER LINING FOLDER Reason: DUP *GLUCOSE Not Performed: May 20, 2024@15:11 by [id number] *ZIPPER LINING FOLDER Reason: DUP *SODIUM Not Performed: May 20, 2024@15:11 by [id number] *ZIPPER LINING FOLDER Reason: DUP *POTASSIUM Not Performed: May 20, 2024@15:11 by [id number] *ZIPPER LINING FOLDER Reason: DUP *CHLORIDE Not Performed: May 20, 2024@15:11 by [id number] *ZIPPER LINING FOLDER Reason: DUP *CO2 Not Performed: May 20, 2024@15:11 by [id number] *ZIPPER LINING FOLDER Reason: DUP *CREATININE (eGFR 2020) Not Performed: May 20, 2024@15:11 by [id number] *ZIPPER LINING FOLDER Reason: DUP Ordering Provider: LIAM MOORE Report Released Date/Time: Mar 26, 2024 03:22 PM Reporting Lab: [facility] [employer] [employer] [address] Performing Lab: [place] [facility] [employer] [address] [facility] LIPID PANEL, NON FASTING CHOLESTEROL IN LDL [MASS/VOLUM E] IN SERUM OR PLASMA BY CALCULATION 57 mg/dL 0 - 129 05/20 Specimen Type: SERUM Comment: *UREA NITROGEN Not Performed: May 20, 2024@15:11 by [id number] *ZIPPER LINING FOLDER Reason: DUP *GLUCOSE Not Performed: May 20, 2024@15:11 by [id number] *ZIPPER LINING FOLDER Reason: DUP *SODIUM Not Performed: May 20, 2024@15:11 by [id number] *ZIPPER LINING FOLDER Reason: DUP *POTASSIUM Not Performed: May 20, 2024@15:11 by [id number] *ZIPPER LINING FOLDER Reason: DUP *CHLORIDE Not Performed: May 20, 2024@15:11 by [id number] *ZIPPER LINING FOLDER Reason: DUP *CO2 Not Performed: May 20, 2024@15:11 by [id number] *ZIPPER LINING FOLDER Reason: DUP *CREATININE (eGFR 2020) Not Performed: May 20, 2024@15:11 by [id number] *ZIPPER LINING FOLDER Reason: DUP Ordering Provider: LIAM MOORE Report Released Date/Time: Mar 26, 2024 03:22 PM Reporting Lab: [place] [employer] [employer] [address] Performing Lab: [facility] [address] [address] [facility] LIPID PANEL, NON FASTING CHOLESTEROL .TOTAL/CHOL ESTEROL IN HDL [MASS RATIO] IN SERUM OR PLASMA 3.3 05/20 Specimen Type: SERUM Comment: *UREA NITROGEN Not Performed: May 20, 2024@15:11 by [id number] *ZIPPER LINING FOLDER Reason: DUP *GLUCOSE Not Performed: May 20, 2024@15:11 by [id number] *ZIPPER LINING FOLDER Reason: DUP *SODIUM Not Performed: May 20, 2024@15:11 by [id number] *ZIPPER LINING FOLDER Reason: DUP *POTASSIUM Not Performed: May 20, 2024@15:11 by [id number] *ZIPPER LINING FOLDER Reason: DUP *CHLORIDE Not Performed: May 20, 2024@15:11 by [id number] *ZIPPER LINING FOLDER Reason: DUP *CO2 Not Performed: May 20, 2024@15:11 by [id number] *ZIPPER LINING FOLDER Reason: DUP *CREATININE (eGFR 2020) Not Performed: May 20, 2024@15:11 by [id number] *ZIPPER LINING FOLDER Reason: DUP Ordering Provider: LIAM MOORE Report Released Date/Time: Mar 26, 2024 03:22 PM Reporting Lab: [address] [address] Performing Lab: [address] [address] [facility] LIPID PANEL, NON FASTING CHOLESTEROL IN HDL [MASS/VOLUM E] IN SERUM OR PLASMA 43 mg/dL 40 - 60 05/20 Specimen Type: SERUM Comment: *UREA NITROGEN Not Performed: May 20, 2024@15:11 by [id number] *ZIPPER LINING FOLDER Reason: DUP *GLUCOSE Not Performed: May 20, 2024@15:11 by [id number] *ZIPPER LINING FOLDER Reason: DUP *SODIUM Not Performed: May 20, 2024@15:11 by [id number] *ZIPPER LINING FOLDER Reason: DUP *POTASSIUM Not Performed: May 20, 2024@15:11 by [id number] *ZIPPER LINING FOLDER Reason: DUP *CHLORIDE Not Performed: May 20, 2024@15:11 by [id number] *ZIPPER LINING FOLDER Reason: DUP *CO2 Not Performed: May 20, 2024@15:11 by [id number] *ZIPPER LINING FOLDER Reason: DUP *CREATININE (eGFR 2020) Not Performed: May 20, 2024@15:11 by [id number] *ZIPPER LINING FOLDER Reason: DUP Ordering Provider: LIAM MOORE Report Released Date/Time: Mar 26, 2024 03:22 PM Reporting Lab: [facility] [address] [facility] [address] Performing Lab: [facility] [address] [facility] [address] [facility] LIVER FUNCTION PROTEIN [MASS/VOLUM E] IN SERUM OR PLASMA 6.7 g/dL 6.0 - 8.3 05/20 Specimen Type: SERUM Comment: *UREA NITROGEN Not Performed: May 20, 2024@15:11 by [id number] *ZIPPER LINING FOLDER Reason: DUP *GLUCOSE Not Performed: May 20, 2024@15:11 by [id number] *ZIPPER LINING FOLDER Reason: DUP *SODIUM Not Performed: May 20, 2024@15:11 by [id number] *ZIPPER LINING FOLDER Reason: DUP *POTASSIUM Not Performed: May 20, 2024@15:11 by [id number] *ZIPPER LINING FOLDER Reason: DUP *CHLORIDE Not Performed: May 20, 2024@15:11 by [id number] *ZIPPER LINING FOLDER Reason: DUP *CO2 Not Performed: May 20, 2024@15:11 by [id number] *ZIPPER LINING FOLDER Reason: DUP *CREATININE (eGFR 2020) Not Performed: May 20, 2024@15:11 by [id number] *ZIPPER LINING FOLDER Reason: DUP Ordering Provider: LIAM MOORE Report Released Date/Time: Mar 26, 2024 03:22 PM Reporting Lab: [facility] [address] [facility] [address] Performing Lab: [facility] [address] [facility] [address] [facility] LIVER FUNCTION ALBUMIN [MASS/VOLUM E] IN SERUM OR PLASMA 3.8 g/dL 3.5 - 5.0 05/20 Specimen Type: SERUM Comment: *UREA NITROGEN Not Performed: May 20, 2024@15:11 by [id number] *ZIPPER LINING FOLDER Reason: DUP *GLUCOSE Not Performed: May 20, 2024@15:11 by [id number] *ZIPPER LINING FOLDER Reason: DUP *SODIUM Not Performed: May 20, 2024@15:11 by [id number] *ZIPPER LINING FOLDER Reason: DUP *POTASSIUM Not Performed: May 20, 2024@15:11 by [id number] *ZIPPER LINING FOLDER Reason: DUP *CHLORIDE Not Performed: May 20, 2024@15:11 by [id number] *ZIPPER LINING FOLDER Reason: DUP *CO2 Not Performed: May 20, 2024@15:11 by [id number] *ZIPPER LINING FOLDER Reason: DUP *CREATININE (eGFR 2020) Not Performed: May 20, 2024@15:11 by [id number] *ZIPPER LINING FOLDER Reason: DUP Ordering Provider: LIAM MOORE Report Released Date/Time: Mar 26, 2024 03:22 PM Reporting Lab: [facility] [place] [address] [address] Performing Lab: [facility] [place] [address] [address] [place] [facility] [facility] LIVER FUNCTION ALKALINE PHOSPHATASE [ENZYMATIC ACTIVITY/VO LUME] IN SERUM OR PLASMA 83 U/L 40 - 150 05/20 Specimen Type: SERUM Comment: *UREA NITROGEN Not Performed: May 20, 2024@15:11 by [id number] *ZIPPER LINING FOLDER Reason: DUP *GLUCOSE Not Performed: May 20, 2024@15:11 by [id number] *ZIPPER LINING FOLDER Reason: DUP *SODIUM Not Performed: May 20, 2024@15:11 by [id number] *ZIPPER LINING FOLDER Reason: DUP *POTASSIUM Not Performed: May 20, 2024@15:11 by [id number] *ZIPPER LINING FOLDER Reason: DUP *CHLORIDE Not Performed: May 20, 2024@15:11 by [id number] *ZIPPER LINING FOLDER Reason: DUP *CO2 Not Performed: May 20, 2024@15:11 by [id number] *ZIPPER LINING FOLDER Reason: DUP *CREATININE (eGFR 2020) Not Performed: May 20, 2024@15:11 by [id number] *ZIPPER LINING FOLDER Reason: DUP Ordering Provider: LIAM MOORE Report Released Date/Time: Mar 26, 2024 03:22 PM Reporting Lab: [facility] [place] [facility] [address] [facility] [address] Performing Lab: [facility] [place] [facility] [address] [facility] [address] [place] [facility] [facility] LIVER FUNCTION ASPARTATE AMINOTRANSF ERASE [ENZYMATIC ACTIVITY/VO LUME] IN SERUM OR PLASMA 13 U/L 5 - 34 05/20 Specimen Type: SERUM Comment: *UREA NITROGEN Not Performed: May 20, 2024@15:11 by [id number] *ZIPPER LINING FOLDER Reason: DUP *GLUCOSE Not Performed: May 20, 2024@15:11 by [id number] *ZIPPER LINING FOLDER Reason: DUP *SODIUM Not Performed: May 20, 2024@15:11 by [id number] *ZIPPER LINING FOLDER Reason: DUP *POTASSIUM Not Performed: May 20, 2024@15:11 by [id number] *ZIPPER LINING FOLDER Reason: DUP *CHLORIDE Not Performed: May 20, 2024@15:11 by [id number] *ZIPPER LINING FOLDER Reason: DUP *CO2 Not Performed: May 20, 2024@15:11 by [id number] *ZIPPER LINING FOLDER Reason: DUP *CREATININE (eGFR 2020) Not Performed: May 20, 2024@15:11 by [id number] *ZIPPER LINING FOLDER Reason: DUP Ordering Provider: LIAM MOORE Report Released Date/Time: Mar 26, 2024 03:22 PM Reporting Lab: [facility] [address] Performing Lab: [place] [facility] [address] [address] [facility] LIVER FUNCTION ALANINE AMINOTRANSF ERASE [ENZYMATIC ACTIVITY/VO LUME] IN SERUM OR PLASMA 15 U/L 05/20 Specimen Type: SERUM Comment: *UREA NITROGEN Not Performed: May 20, 2024@15:11 by [id number] *ZIPPER LINING FOLDER Reason: DUP *GLUCOSE Not Performed: May 20, 2024@15:11 by [id number] *ZIPPER LINING FOLDER Reason: DUP *SODIUM Not Performed: May 20, 2024@15:11 by [id number] *ZIPPER LINING FOLDER Reason: DUP *POTASSIUM Not Performed: May 20, 2024@15:11 by [id number] *ZIPPER LINING FOLDER Reason: DUP *CHLORIDE Not Performed: May 20, 2024@15:11 by [id number] *ZIPPER LINING FOLDER Reason: DUP *CO2 Not Performed: May 20, 2024@15:11 by [id number] *ZIPPER LINING FOLDER Reason: DUP *CREATININE (eGFR 2020) Not Performed: May 20, 2024@15:11 by [id number] *ZIPPER LINING FOLDER Reason: DUP Ordering Provider: LIAM MOORE Report Released Date/Time: Mar 26, 2024 03:22 PM Reporting Lab: [facility] [place] [facility] [address] [facility] [id number] Performing Lab: [facility] [place] [facility] [address] [facility] [address] [facility] LIVER FUNCTION BILIRUBIN.T OTAL [MASS/VOLUM E] IN SERUM OR PLASMA 0.4 mg/dL 0.2 - 1.2 05/20 Specimen Type: SERUM Comment: *UREA NITROGEN Not Performed: May 20, 2024@15:11 by [id number] *ZIPPER LINING FOLDER Reason: DUP *GLUCOSE Not Performed: May 20, 2024@15:11 by [id number] *ZIPPER LINING FOLDER Reason: DUP *SODIUM Not Performed: May 20, 2024@15:11 by [id number] *ZIPPER LINING FOLDER Reason: DUP *POTASSIUM Not Performed: May 20, 2024@15:11 by [id number] *ZIPPER LINING FOLDER Reason: DUP *CHLORIDE Not Performed: May 20, 2024@15:11 by [id number] *ZIPPER LINING FOLDER Reason: DUP *CO2 Not Performed: May 20, 2024@15:11 by [id number] *ZIPPER LINING FOLDER Reason: DUP *CREATININE (eGFR 2020) Not Performed: May 20, 2024@15:11 by [id number] *ZIPPER LINING FOLDER Reason: DUP Ordering Provider: LIAM MOORE Report Released Date/Time: Mar 26, 2024 03:22 PM Reporting Lab: [facility] [address] [facility] [address] Performing Lab: [facility] [address] [facility] [address] [facility] PT & INR (PROTIME) INR IN PLATELET POOR PLASMA BY COAGULATION ASSAY 1.5 05/20 Specimen Type: PLASMA No comment entered. Ordering Provider: LIAM MOORE Report Released Date/Time: Mar 26, 2024 03:22 PM Reporting Lab: [address] [address] Performing Lab: [address] [address] [facility] PT & INR (PROTIME) PROTHROMBIN TIME (PT) 16.0 s 10.0 - 13.1 05/20 H Specimen Type: PLASMA No comment entered. Ordering Provider: LIAM MOORE Report Released Date/Time: Mar 26, 2024 03:22 PM Reporting Lab: [address] [address] Performing Lab: [address] [address] [facility] HEMOGLOBI N A1C PANEL HEMOGLOBIN A1C/HEMOGLO BIN.TOTAL IN BLOOD BY HPLC 8.6 4.0 - 5.6 05/20 H Specimen Type: BLOOD Comment: Values obtained from A1C measurement s can vary. For atypical A1C assays, a reported value of 7.0 could actually be between 6.72 and 7.28 if measured by a reference method. A reported value of 9.0 could actually be between 8.73 and 9.27. Ref: http://www. ngsp.org/[place] Pdata.asp Ordering Provider: LIAM MOORE Report Released Date/Time: Mar 26, 2024 03:22 PM Reporting Lab: [address] [address] Performing Lab: [address] [address] [facility] BASIC METABOLIC PANEL (non-fast ing) UREA NITROGEN [MASS/VOLUM E] IN SERUM OR PLASMA 17 mg/dL 7 - 25 05/20 Specimen Type: SERUM No comment entered. Ordering Provider: GDULA,ADAIR A Report Released Date/Time: May 18, 2024 08:18 AM Reporting Lab: [facility] [address] [address] Performing Lab: [facility] [address] [facility] [address] [facility] BASIC METABOLIC PANEL (non-fast ing) GLUCOSE [MASS/VOLUM E] IN SERUM OR PLASMA 158 mg/dL 65 - 100 05/20 H Specimen Type: SERUM No comment entered. Ordering Provider: ADAIR APODCAA Report Released Date/Time: May 18, 2024 08:18 AM Reporting Lab: [facility] [address] [address] Performing Lab: [facility] [address] [address] [facility] BASIC METABOLIC PANEL (non-fast ing) SODIUM [MOLES/VOLU ME] IN SERUM OR PLASMA 137 mmol/L 135 - 145 05/20 Specimen Type: SERUM No comment entered. Ordering Provider: ADAIR APODACA Report Released Date/Time: May 18, 2024 08:18 AM Reporting Lab: [facility] [address] Performing Lab: [facility] [address] [facility] BASIC METABOLIC PANEL (non-fast ing) POTASSIUM [MOLES/VOLU ME] IN SERUM OR PLASMA 4.1 mmol/L 3.5 - 5.0 05/20 Specimen Type: SERUM No comment entered. Ordering Provider: ADAIR APODACA Report Released Date/Time: May 18, 2024 08:18 AM Reporting Lab: [facility] [address] Performing Lab: [facility] [address] [facility] BASIC METABOLIC PANEL (non-fast ing) CHLORIDE [MOLES/VOLU ME] IN SERUM OR PLASMA 106 mmol/L 100 - 110 05/20 Specimen Type: SERUM No comment entered. Ordering Provider: ADAIR APODACA Report Released Date/Time: May 18, 2024 08:18 AM Reporting Lab: [address] [address] Performing Lab: [address] [address] [facility] BASIC METABOLIC PANEL (non-fast ing) CARBON DIOXIDE, TOTAL [MOLES/VOLU ME] IN SERUM OR PLASMA 24 meq/L 20 - 30 05/20 Specimen Type: SERUM No comment entered. Ordering Provider: ADAIR APODACA Report Released Date/Time: May 18, 2024 08:18 AM Reporting Lab: [address] [address] Performing Lab: [address] [address] [facility] BASIC METABOLIC PANEL (non-fast ing) CREATININE [MASS/VOLUM E] IN SERUM OR PLASMA 0.83 mg/dL 0.50 - 1.40 05/20 Specimen Type: SERUM No comment entered. Ordering Provider: ADAIR APODACA Report Released Date/Time: May 18, 2024 08:18 AM Reporting Lab: [address] [address] Performing Lab: [address] [address] [facility] BASIC METABOLIC PANEL (non-fast ing) GLOMERULAR FILTRATION RATE/1.73 SQ M.PREDICTED [VOLUME RATE/AREA] IN SERUM, PLASMA OR BLOOD BY CREATININE- BASED FORMULA (CKD-EPI 2020) 86 mL/min 60 05/20 Specimen Type: SERUM No comment entered. Ordering Provider: ADAIR APODACA Report Released Date/Time: May 18, 2024 08:18 AM Reporting Lab: [address] [place] [address] Performing Lab: [facility] [facility] [address] [facility] [address] [facility] MICROALBU MIN CREATININ E RATIO PANEL MICROALBUMI N/CREATININ E [MASS RATIO] IN URINE 19.1 mg/g 0 - 29.9 05/20 Specimen Type: URINE No comment entered. Ordering Provider: ADAIR APODACA Report Released Date/Time: May 18, 2024 08:18 AM Reporting Lab: [facility] [facility] [address] [facility] [address] Performing Lab: [place] [facility] [place] [facility] [address] [facility] [address] [place] [facility] [facility] MICROALBU MIN CREATININ E RATIO PANEL MICROALBUMI N [MASS/VOLUM E] IN URINE 1.5 mg/dL 05/20 Specimen Type: URINE No comment entered. Ordering Provider: ADAIR APODACA Report Released Date/Time: May 18, 2024 08:18 AM Reporting Lab: [facility] [place] [facility] [address] [facility] [address] Performing Lab: [facility] [place] [facility] [address] [facility] [address] [place] [facility] [place] [facility] MICROALBU MIN CREATININ E RATIO PANEL CREATININE [MASS/VOLUM E] IN URINE 78.41 mg/dL 05/20 Specimen Type: URINE No comment entered. Ordering Provider: ADAIR APODACA Report Released Date/Time: May 18, 2024 08:18 AM Reporting Lab: [facility] [place] [facility] [address] [facility] [address] Performing Lab: [facility] [place] [facility] [address] [facility] [address] [facility] BASIC METABOLIC PANEL (non-fast ing) UREA NITROGEN [MASS/VOLUM E] IN SERUM OR PLASMA 25 mg/dL 7 - 25 10/15 Specimen Type: SERUM No comment entered. Ordering Provider: LIAM MOORE Report Released Date/Time: Oct 02, 2023 11:31 AM Reporting Lab: [facility] [place] [facility] [address] [facility] [address] Performing Lab: [place] [facility] [place] [facility] [address] [facility] [address] [facility] BASIC METABOLIC PANEL (non-fast ing) GLUCOSE [MASS/VOLUM E] IN SERUM OR PLASMA 121 mg/dL 65 - 100 10/15 H Specimen Type: SERUM No comment entered. Ordering Provider: LIAM MOORE Report Released Date/Time: Oct 02, 2023 11:31 AM Reporting Lab: [facility] [place] [facility] [address] [facility] [address] Performing Lab: [place] [facility] [facility] [address] [facility]ITAL[facility] BASIC METABOLIC PANEL (non-fast ing) SODIUM [MOLES/VOLU ME] IN SERUM OR PLASMA 135 mmol/L 135 - 145 10/15 Specimen Type: SERUM No comment entered. Ordering Provider: LIAM MOORE Report Released Date/Time: Oct 02, 2023 11:31 AM Reporting Lab: [facility] [place] [facility] [address] [facility] [address] Performing Lab: [place] [facility] [address] [facility] [address] [facility] BASIC METABOLIC PANEL (non-fast ing) POTASSIUM [MOLES/VOLU ME] IN SERUM OR PLASMA 4.1 mmol/L 3.5 - 5.0 10/15 Specimen Type: SERUM No comment entered. Ordering Provider: LIAM MOORE Report Released Date/Time: Oct 02, 2023 11:31 AM Reporting Lab: [facility] [place] [facility] [address] [facility] [address] Performing Lab: [place] [facility] [place] [facility] [address] [facility] [address] [facility] BASIC METABOLIC PANEL (non-fast ing) CHLORIDE [MOLES/VOLU ME] IN SERUM OR PLASMA 104 mmol/L 100 - 110 10/15 Specimen Type: SERUM No comment entered. Ordering Provider: LIAM MOORE Report Released Date/Time: Oct 02, 2023 11:31 AM Reporting Lab: [address] [address] Performing Lab: [address] [address] [facility] BASIC METABOLIC PANEL (non-fast ing) CARBON DIOXIDE, TOTAL [MOLES/VOLU ME] IN SERUM OR PLASMA 21 meq/L 20 - 30 10/15 Specimen Type: SERUM No comment entered. Ordering Provider: LIAM MOORE Report Released Date/Time: Oct 02, 2023 11:31 AM Reporting Lab: [address] [address] Performing Lab: [address] [address] [facility] BASIC METABOLIC PANEL (non-fast ing) CREATININE [MASS/VOLUM E] IN SERUM OR PLASMA 0.90 mg/dL 0.50 - 1.40 10/15 Specimen Type: SERUM No comment entered. Ordering Provider: LIAM MOORE Report Released Date/Time: Oct 02, 2023 11:31 AM Reporting Lab: [address] [address] Performing Lab: [address] [address] [facility] BASIC METABOLIC PANEL (non-fast ing) GLOMERULAR FILTRATION RATE/1.73 SQ M.PREDICTED [VOLUME RATE/AREA] IN SERUM, PLASMA OR BLOOD BY CREATININE- BASED FORMULA (CKD-EPI 2020) 85 mL/min 60 10/15 Specimen Type: SERUM No comment entered. Ordering Provider: LIAM MOORE Report Released Date/Time: Oct 02, 2023 11:31 AM Reporting Lab: [facility] [place] [facility] [address] [facility] [address] Performing Lab: [facility] [place] [facility] [address] [facility] [address] [place] [facility] [facility] LIPID PANEL, NON FASTING CHOLESTEROL [MASS/VOLUM E] IN SERUM OR PLASMA 163 mg/dL 10/15 Specimen Type: SERUM No comment entered. Ordering Provider: LIAM MOORE Report Released Date/Time: Oct 02, 2023 11:31 AM Reporting Lab: [facility] [place] [facility] [address] [facility] [address] Performing Lab: [facility] [place] [facility] [address] [facility] [address] [facility] LIPID PANEL, NON FASTING TRIGLYCERID E [MASS/VOLUM E] IN SERUM OR PLASMA 148 mg/dL 0 - 150 10/15 Specimen Type: SERUM No comment entered. Ordering Provider: LIAM MOORE Report Released Date/Time: Oct 02, 2023 11:31 AM Reporting Lab: [facility] [place] [facility] [address] [facility] [address] Performing Lab: [facility] [place] [facility] [address] [facility] [address] [facility] [place] [facility] LIPID PANEL, NON FASTING CHOLESTEROL IN LDL [MASS/VOLUM E] IN SERUM OR PLASMA BY CALCULATION 86 mg/dL 0 - 129 10/15 Specimen Type: SERUM No comment entered. Ordering Provider: LIAM MOORE Report Released Date/Time: Oct 02, 2023 11:31 AM Reporting Lab: [facility] [place] [facility] [address] [facility] [address] Performing Lab: [facility] [place] [facility] [address] [facility] [address] [facility] [place] [facility] LIPID PANEL, NON FASTING CHOLESTEROL .TOTAL/CHOL ESTEROL IN HDL [MASS RATIO] IN SERUM OR PLASMA 3.5 10/15 Specimen Type: SERUM No comment entered. Ordering Provider: LIAM MOORE Report Released Date/Time: Oct 02, 2023 11:31 AM Reporting Lab: [facility] [place] [facility] [address] [facility] [address] Performing Lab: [facility] [place] [facility] [address] [facility] [address] [facility] LIPID PANEL, NON FASTING CHOLESTEROL IN HDL [MASS/VOLUM E] IN SERUM OR PLASMA 47 mg/dL 40 - 60 10/15 Specimen Type: SERUM No comment entered. Ordering Provider: LIAM MOORE Report Released Date/Time: Oct 02, 2023 11:31 AM Reporting Lab: [facility] [place] [facility] [address] [facility] [address] Performing Lab: [place] [facility] [place] [facility] [address] [facility] [address] [place] [facility] [place] [facility] LIVER FUNCTION PROTEIN [MASS/VOLUM E] IN SERUM OR PLASMA 6.6 g/dL 6.0 - 8.3 10/15 Specimen Type: SERUM No comment entered. Ordering Provider: LIAM MOORE Report Released Date/Time: Oct 02, 2023 11:31 AM Reporting Lab: [facility] [place] [facility] [address] [facility] [address] Performing Lab: [facility] [place] [facility] [address] [facility] [address] [facility] LIVER FUNCTION ALBUMIN [MASS/VOLUM E] IN SERUM OR PLASMA 3.7 g/dL 3.5 - 5.0 10/15 Specimen Type: SERUM No comment entered. Ordering Provider: LIAM MOORE Report Released Date/Time: Oct 02, 2023 11:31 AM Reporting Lab: [facility] [place] [facility] [address] [facility] [address] Performing Lab: [facility] [place] [facility] [address] [facility] [address] [facility] LIVER FUNCTION ALKALINE PHOSPHATASE [ENZYMATIC ACTIVITY/VO LUME] IN SERUM OR PLASMA 86 U/L 40 - 150 10/15 Specimen Type: SERUM No comment entered. Ordering Provider: LIAM MOORE Report Released Date/Time: Oct 02, 2023 11:31 AM Reporting Lab: [facility] [place] [facility] [address] [facility] [address] Performing Lab: [facility] [place] [facility] [address] [facility] [address] [facility] LIVER FUNCTION ASPARTATE AMINOTRANSF ERASE [ENZYMATIC ACTIVITY/VO LUME] IN SERUM OR PLASMA 17 U/L 5 - 34 10/15 Specimen Type: SERUM No comment entered. Ordering Provider: LIAM MOORE Report Released Date/Time: Oct 02, 2023 11:31 AM Reporting Lab: [facility] [address] [address] Performing Lab[facility] [place] [facility] [address] [facility] [address] [place] [facility] [place] [facility] LIVER FUNCTION ALANINE AMINOTRANSF ERASE [ENZYMATIC ACTIVITY/VO LUME] IN SERUM OR PLASMA 21 U/L 10/15 Specimen Type: SERUM No comment entered. Ordering Provider: LIAM MOORE Report Released Date/Time: Oct 02, 2023 11:31 AM Reporting Lab: [facility] [address] [address] Performing Lab: [facility] [place] [facility] [address] [facility] [address] [place] [facility] [place] [facility] LIVER FUNCTION BILIRUBIN.T OTAL [MASS/VOLUM E] IN SERUM OR PLASMA 0.4 mg/dL 0.2 - 1.2 10/15 Specimen Type: SERUM No comment entered. Ordering Provider: LIAM MOORE Report Released Date/Time: Oct 02, 2023 11:31 AM Reporting Lab: [facility] [place] [address] [address] Performing Lab: [facility] [place] [facility] [address] [facility] [address] [facility] Vital Signs Combined list of inpatient and outpatient Vital Signs from Department of Defense and Veterans Affairs, ranging from 12 months to all on record, depending upon the facility. Vital Sign Value Date Comments Source SYSTOLIC BLOOD PRESSURE 140 06/11/19 11:30:07 [facility] DIASTOLIC BLOOD PRESSURE 80 025 11:30:07 [facility] PULSE OXIMETRY 99 06/10/2024 11:30:07 [facility] WEIGHT 219 06/10/2024 11:30:07 [facility] BMI 34 kg/m2 06/10/2024 11:30:07 [facility] PAIN 8 06/10/2024 11:30:07 [facility] HEIGHT 67 06/10/2024 11:30:07 [facility] TEMPERATURE 98.1 06/10/2024 11:30:07 [facility] PULSE 76 06/10/2024 11[facility]30:07 [facility] RESPIRATION 20 06/10/2024 11:30:07 [facility] SYSTOLIC BLOOD PRESSURE 120 05/27/19 25 14:01:39 [facility] DIASTOLIC BLOOD PRESSURE 71 025 14:01:39 [facility] PULSE 76 05/27/2024 14:01:39 [facility] SYSTOLIC BLOOD PRESSURE 160 04/13/19 25 09:56:23 [facility] DIASTOLIC BLOOD PRESSURE 82 025 09:56:23 [facility] PULSE OXIMETRY 97 04/13/2024 09:56:23 [facility] WEIGHT 218 04/13/2024 09:56:23 [facility] BMI 34 kg/m2 04/13/2024 09:56:23 [facility] PAIN 1 04/13/2024 09:56:23 [facility] HEIGHT 67 04/13/2024 09:56:23 [facility] TEMPERATURE 98.3 04/13/2024 09:56:23 [facility] PULSE 64 04/13/2024 09:56:23 [facility] RESPIRATION 20 04/13/2024 09:56:23 [facility] SYSTOLIC BLOOD PRESSURE 120 10/16/19 24 15:08:11 [facility] DIASTOLIC BLOOD PRESSURE 62 024 15:08:11 [facility] PULSE OXIMETRY 97 10/16/2023 15:08:11 [facility] WEIGHT 212.6 10/16/2023 15:08:11 [facility] BMI 33 kg/m2 10/16/2023 15:08:11 [facility] PAIN 9 10/16/2023 15:08:11 [facility] HEIGHT 67 10/16/2023 15:08:11 [facility] TEMPERATURE 98.2 10/16/2023 15:08:11 [facility] PULSE 74 10/16/2023 15:08:11 [facility] RESPIRATION 16 10/16/2023 15:08:11 [facility] Encounters Combined list of: 1) Encounters from Department of Veterans Affairs facilities going backup to the last 18 months, not all VA inpatient encounters are included; 2) Encounters from the Department of Defense facilities going backup to 280 months. Location Location Details Encounter Type Encounter Number Reason For Visit Attending Provider ADM Date DC Date Status Disposition Source [facility]counter [id number] 02/06 [facility] [id number] 07/07 [facility] Encounter [id number] 07/31 [facility]counter [id number] 08/15 [facility] [id number] 08/28 [facility]counter [id number] 09/03 [facility]counter [id number] 09/15 [facility] En[facility] [id number] 09/15 [facility] OFFICE O/P NEW MOD 45 MIN [id number] Diagnos is: ICD-10- CM I25.10 [facility] [place] coronar y artery w/o ang pctGrupo Buckley 10/15 [facility] [id number] 02/19 [facility] Out[facility]counter [id number] 03/12 [facility]counter [id number] [place] 03/13 [facility]counter [id number] 03/16 [facility]counter [id number] [facility] HEARING AID EXAM BOTH EARS [id number] Diagnos is: ICD-10- CM H90.3 Sensori neural hearing loss, bilater GEOFF Bender 03/20 [facility] Out[facility] Encounter [id number] 03/24 [facility] OFFICE O/P EST HI 40 MIN [id number] Diagnos is: ICD-10- CM R06.00 Dyspnea , unspeci [employer] 04/13 [facility] Out[facility] Encounter [id number] 04/14 [facility] [id number] 04/15 [facility] Encounter [id number] 04/15 [facility] HEARING SERVICE [id number] Diagnos is: ICD-10- CM Z46.1 Encount er for fitting and adjustm ent of hearing aid SENIOREBONI 04/17 [facility] [id number] 1.04/20 [facility] [id number] [facility] En[facility] [id number] 04/28 [facility] NQHP OL DIG ASSMT&MGMT 5-10 [id number] Diagnos is: ICD-10- CM I10 Essenti al (primar y) hyperte nsion [facility] 05/11 [facility] Out[facility] [id number] 05/12 [facility] Out[facility] Encounter [id number] [facility] NQHP OL DIG ASSMT&MGMT 5-10 [id number] Diagnos is: ICD-10- CM E11.9 Type 2 diabete s mellitu s without complic ations [facility], [place]IST[place] A 05/15 [facility] NQHP OL DIG ASSMT&MGMT 5-10 [id number] Diagnos is: ICD-10- CM I10 Essenti al (primar y) hyperte nsion SOK[facility],CH RISTY A 05/26 [facility] [facility] Outpatient Encounter [id number] 05/27 [facility] MT[facility] BY PHARM ADDL 15 MIN [id number] Diagnos is: ICD-10- CM E11.9 Type 2 diabete s mellitu s without complic ations ADAIR APODACA A 05/27 [facility] Outpatient Encounter [id number] [facility] [place] MTMS BY 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 36 Diagnos is: ICD-10- CM E11.9 Type 2 diabete s mellitu s without complic ations EMERALD LEE 06/09 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 Social History Type Response Date Comment Sourc e Tobacco smoking status NHIS [place]-TOBACCO FORMER USER 08[place]2023 [place] [facility] [place] [facility] History of tobacco use [place]-TO[place]AC[place] QUIT 15 YRS OR MORE 08/16/2023 [place] [facility] [place] [facility] Plan of Care List of future care activities from Department of Veterans Affairs facilities. Additional future care activities may be listed in the Assessment and Plan section. Date/Time Care Activity Care Activity Detail Facili ty 06/18/2024 AMBULATORY - REHAB MEDICINE AMBULATORY - [place] MEDICINE [place] [facility] [place] [facility] 07/22/2024 AMBULATORY - MEDICINE AMBULATORY [place]ICI [place] [facility] [place] [facility] 08/19/2024 AMBULATORY - MEDICINE AMBULATORY [place]IC[place] [facility] [place] [facility] 10/12/2024 AMBULATORY - MEDICINE AMBULATORY [place]IC[place] [facility] [place] [facility] 10/28/2024 AMBULATORY - NONE AMBULATORY - NONE [facility] [place] [facility] 06/10/2024 Consult Order COMMUNITY CARE-CARDIOLOGY Cons Manager [facility] [place] [facility] [place] [facility] 06/10/2024 Consult Order COMMUNITY CARE-P ULMONARY Cons Manager [facility] [place] [facility] [place] [facility]
--- OUTSIDE RECORDS SUMMARY | 2024-06-17 10:19 | XMS_ITS ---
Author Name [facility] [place] [facility] [facility] [place] Address [address] [place] [address] Care Team Providers Care Naturalization Examiner Name Role Phone ELOINA MOORE [facility] [place] [facility] Providers: All historical and current Section [...] PART A Feb 06, 2005 PART A [id number] DEXTER MORAN PATIENT MEDICARE (WNR) MEDICARE (M) PART B Feb 06, 2005 PART B [id number] DEXTER MORAN PATIENT Selected Encounter This section includes the information on record at [place] for the Encounter. Date/Time Encounter Type Encounter Description Reason Provider Source Jun 09, 2024 01:42 PM [facility] OL DIG ASSMT&MGMT 5-10 CLINICAL PHARMACY ICD-10-CM E11.9 Type 2 diabetes mellitus without complications EMERALD LEE Encounter Template Text not used by [place] Assessments - Encounter Diagnoses This section includes the primary and secondary diagnoses documented for the Encounter. Date/Time Primary/Secondary Diagnosis Diagnosis Name Provider Source Jun 09, 2024 01:48 PM PRIMARY Type 2 diabetes mellitus without complications EMERALD LEE [facility] ([id number]) Plan of Treatment: Future Appointments (+ 6 months) and Future Tests (+/- 45 days) The Plan of Treatment section includes future care activities for the patient from all [place] treatmentfacilities. This section includes future appointments and future orders which are active, pending or scheduled. Future Appointments This section includes appointments that were scheduled to occur 6 months from the date of the Encounter, up to a maximum of 20 appointments. The data comes from all [place] treatment facilities. Appointment Date/Time Appointment Type Appointme nt Facility Name Jun 10, 2024 11:30 AM AMBULATORY [place]ICINE [place] [facility] [place] [facility] Jun 10, 2024 01:30 PM AMBULATORY - MEDICINE [place] [facility] [place] [facility] Jun 18, 2024 01:00 PM AMBULATORY - [place] MEDICIN [place] [facility] [place] [facility] Jul 22, 2024 11:30 AM AMBULATORY - MEDICINE [place] [facility] [place] [facility] August 19, 2024 10:40 AM AMBULATORY - MEDICINE [place] [facility] [place] [facility] Oct 12, 2024 11:00 AM AMBULATORY - MEDICINE [place] [facility] [place] [facility] Oct 28, 2024 04:00 PM AMBULATORY - NONE [place] [facility] [place] [facility] Active, Pending, and Scheduled Orders This section includes a listing of several types of active, pending, and scheduled orders, including clinic medications orders, diagnostic test orders, procedure orders and consult orders; where the start date of the order is 45 days before the date of the Encounter or 45 days after the date of theEncounter. The data comes from all [place] treatment facilities. Test Date/Time Test Type Test Details Facility Name Jun 10, 2024 01:02 PM Consult Order COMMUNITY CARE-CARDIOLOGY Cons Cloth [facility] [place] [facility] [place] [facility] Jun 10, 2024 01:02 PM Consult Order COMM[facility]ITY CARE[facility]ULMONARY [facility] Lab Results: +/- 30 days of the encounter This section includes the Chemistry and Hematology Lab Results on record with [place] for the patient. Radiology Reports and Pathology Reports are provided separately, in subsequent sections. Lab Results This section contains the Chemistry/Hematology Results that were resulted 30 days before or 30 daysafter the date of the Encounter. Date/Time Source Result Type Result - Unit Interpretation Reference Range Comment May 20, 2024 01:32 PM [facility] CBC Specimen Type: BLOOD No comment entered. Ordering Provider: RHONDA MOORE AM Report Released Date/Time: Mar 26, 2024 03:22 PM Reporting Lab: [address] [address] Performing Lab: [address] [address] WBC 6.58 10*3/uL 4.50-11.00 RBC 3.94 10*6/uL L 4.23-5.66 HGB 11.2 g/dL L 12.8-17 HCT 33.9 L 39.2-50.4 MCV 86.0 fL 82-99 MCHC 33.0 g/dL 30.8-35.1 PLT 226 10*3/uL 140-360 RDW-CV 14.2 12.0-16.0 MCH 28.4 pg 26.2-32.6 May 20, 2024 01:32 PM [facility] LIPID PANEL, NON FASTING Specimen Type: SERUM Comment: *UREA NITROGEN Not Performed: May 20, 2024@15:11 by [id number] *INFORMATION ASSURANCE ANALYST Reason: DUP *GLUCOSE Not Performed: May 20, 2024@15:11 by [id number] *INFORMATION ASSURANCE ANALYST Reason: DUP *SODIUM Not Performed: May 20, 2024@15:11 by [id number] *INFORMATION ASSURANCE ANALYST Reason: DUP *POTASSIUM Not Performed: May 20, 2024@15:11 by [id number] *INFORMATION ASSURANCE ANALYST Reason: DUP *CHLORIDE Not Performed: May 20, 2024@15:11 by [id number] *INFORMATION ASSURANCE ANALYST Reason: DUP *CO2 Not Performed: May 20, 2024@15:11 by [id number] *INFORMATION ASSURANCE ANALYST Reason: DUP *CREATININE (eGFR 2020) Not Performed: May 20, 2024@15:11 by [id number] *INFORMATION ASSURANCE ANALYST Reason: DUP Ordering Provider: RHONDA MOORE AM Report Released Date/Time: Mar 26, 2024 03:22 PM Reporting Lab: [address] [address] Performing Lab: [address] [address] CHOLESTEROL 141 mg/dL TRIGLYCERIDE 205 mg/dL H 0-150 LDL calculated 57 mg/dL 0-129 CHOL/HDL 3.3 HDL CHOLESTEROL 43 mg/dL 40-60 May 20, 2024 01:32 PM [facility] LIVER FUNCTION Specimen Type: SERUM Comment: *UREA NITROGEN Not Performed: May 20, 2024@15:11 by [id number] *INFORMATION ASSURANCE ANALYST Reason: DUP *GLUCOSE Not Performed: May 20, 2024@15:11 by [id number] *INFORMATION ASSURANCE ANALYST Reason: DUP *SODIUM Not Performed: May 20, 2024@15:11 by [id number] *INFORMATION ASSURANCE ANALYST Reason: DUP *POTASSIUM Not Performed: May 20, 2024@15:11 by [id number] *INFORMATION ASSURANCE ANALYST Reason: DUP *CHLORIDE Not Performed: May 20, 2024@15:11 by [id number] *INFORMATION ASSURANCE ANALYST Reason: DUP *CO2 Not Performed: May 20, 2024@15:11 by [id number] *INFORMATION ASSURANCE ANALYST Reason: DUP *CREATININE (eGFR 2020) Not Performed: May 20, 2024@15:11 by [id number] *INFORMATION ASSURANCE ANALYST Reason: DUP Ordering Provider: RHONDA MOORE AM Report Released Date/Time: Mar 26, 2024 03:22 PM Reporting Lab: [address] [address] Performing Lab: [address] [address] PROTEIN,TOTAL 6.7 g/dL 6.0-8.3 ALBUMIN 3.8 g/dL 3.5-5.0 ALKALINE PHOSPHATASE 83 U/L 40-150 AST 13 U/L 5-34 ALT 15 U/L BILIRUBIN, TOTAL 0.4 mg/dL 0.2-1.2 May 20, 2024 01:32 PM [facility] PT & INR (PROTIME) Specimen Type: PLASMA No comment entered. Ordering Provider: RHONDA MOORE AM Report Released Date/Time: Mar 26, 2024 03:22 PM Reporting Lab: [address] [address] Performing Lab: [address] [address] INR 1.5 PROTIME 16.0 s H 10.0-13.1 May 20, 2024 01:32 PM [facility] HEMOGLOBIN A1C PANEL Specimen Type: BLOOD [...] Mar 26, 2024 03:22 PM Reporting Lab: [address] [address] Performing Lab: [address] [address] HEMOGLOBIN A1C 8.6 H 4.0-5.6 May 20, 2024 01:32 PM [facility] BASIC METABOLIC PANEL (non-fasting) Specimen Type: SERUM No comment entered. Ordering Provider: ADAIR APODACA Report Released Date/Time: May 18, 2024 08:18 AM Reporting Lab: [address] [address] Performing Lab: [address] [address] UREA NITROGEN 17 mg/dL 7-25 GLUCOSE 158 mg/dL H 65-100 SODIUM 137 mmol/L 135-145 POTASSIUM 4.1 mmol/L 3.5-5.0 CHLORIDE 106 mmol/L 100-110 CO2 24 meq/L 20-30 CREATININE, Serum 0.83 mg/dL 0.50-1.40 eGFR(CKD-EPI 2020) 86 mL/min >60 May 20, 2024 01:32 PM [facility] MICROALBUMIN CREATININE RATIO PANEL Specimen Type: URINE No comment entered. Ordering Provider: ADAIR APODACA Report Released Date/Time: May 18, 2024 08:18 AM Reporting Lab: [facility] [address] [facility] [address] Performing Lab: [facility] [address] [facility] [address] MICROALBUMIN/C REATININE RATIO 19.1 mg/g 0-29.9 MICROALBUMIN,Q UANTITATIVE 1.5 mg/dL RR UNAVAIL CREATININE URINE 78.41 mg/dL Encounter Notes: All associated encounter notes This section contains the clinical notes associated to the Encounter. Date/Time Encounter Note(s) Provider Source Jun 09, 2024 01:42 PM PHARMACY CONSULT: LOCAL TITLE: CONSULT REPORT/PRIOR AUTH FACILITY PADR STANDARD TITLE: PHARMACY CONSULT DATE OF NOTE: JUN 09, 2024@13:42 ENTRY DATE: JUN 09, 2024@13:42:38 AUTHOR: EMERALD LEE EXP COSIGNER: URGENCY: STATUS: COMPLETED The medical record has been reviewed with regard to this restricted drug request. Medication requested: SEMAGLUTIDE 0.25MG/0.375ML INJ PEN 3ML Medication indication: T2DM Medical history relevant to this request: - Pt on glipizide 20mg/day - H/o CAD, PAD, s/p stroke, [facility]UM[facility] SELECTED Collection DT Spec GLUCOSE BUN CREATIN Sodium K+/Pot CL CO2 05/20/2024 13:32 SERUM 158 H 17 0.83 137 4.1 106 24 10/16/2023 15:53 SERUM 121 H 25 0.90 135 4.1 104 21 HEMOGLOBIN A1C TREND Collection DT Spec HGBA1c 05/20/2024 13:32 BLOOD 8.6 H 10/16/2023 15:53 BLOOD 8.0 H LIPID PANEL TREND Collection DT Spec CHOL HDL CHO/HDL LDL-c TRIG 05/20/2024 13:32 SERUM 141 43 3.3 57 205 H 10/16/2023 15:53 SERUM 163 47 3.5 86 148 The request is approved - A documented contraindication exists to the preferred formulary alternative(s): empag - high risk dehydration, baseline LUTS - A documented therapeutic failure of the preferred formulary alternative(s) exists: on glipizide 20mg/day with A1c 8.6% - Unrestricted alternative(s) have been tried and the patient experienced a significant adverse reaction: metformin diarrhea - Per Ozempic PI: re Diabetic Retinopathy Complications In a 2-year trial involving patients with type 2 diabetes and high cardiovascular risk, more events of diabetic retinopathy complications occurred in patients treated with OZEMPIC (3.0%) compared to placebo (1.8%). The absolute risk increase for diabetic retinopathy complications was larger among patients with a history of diabetic retinopathy at baseline (OZEMPIC 8.2%, placebo 5.2%) than among patients without a known history of diabetic retinopathy (OZEMPIC 0.7%, placebo 0.4%). Rapid improvement in glucose control has been associated with a temporary worsening of diabetic retinopathy. The effect of long-term glycemic control with semaglutide on diabetic retinopathy complications has not been studied. Patients with a history of diabetic retinopathy should be monitored for progression of diabetic retinopathy. - Please make sure patient has a follow up with optometry after starting Ozempic. - Please update pt's allergy to include reaction to metformin. Time spent: 5 minutes /yohana/ EMERALD LEE PHARMD CLINICAL DRIVER Signed: 06/09/2024 13:48 Receipt Acknowledged By: 06/12/2024 16:39 /yohana/ ADAIR APODACA PHARMD,[facility] PRACTITIONER EMERALD LEE [facility] ([facility])
--- OUTSIDE RECORDS SUMMARY | 2024-06-17 10:19 | XMS_ITS | Encounter Summary ---
Author Name [facility] Organization [facility] [place] Address [address] [place] [id number] Care Team Providers Care Aerial Photographer Name Role Phone ROME SAVGAE [facility] Insurance Providers: All historical and current [...] PART A Feb 06, 2005 PART A [id number] DEXTER MORAN PATIENT MEDICARE (WNR) MEDICARE (M) PART B Feb 06, 2005 PART B [id number] DEXTER MORAN PATIENT Selected Encounter This section includes the information on record at [place] for the Encounter. Date/Time Encounter Type Encounter Description Reason Provider Source Jun 03, 2024 04:17 PM MTMS BY PHARM GERIATRICS PHYSICIAN 15 MIN TELEPHONE/YARITZA FERRO ICD-10-CM Z51.81 Encounter for therapeutic drug level monitoring VICKIE WEBB Encounter Template Text not used by [facility] Assessments - Encounter Diagnoses This section includes the primary and secondary diagnoses documented for the Encounter. Date/Time Primary/Secondary Diagnosis Diagnosis Name Provider Source Jun 03, 2024 04:17 PM PRIMARY Encounter for therapeutic drug level monitoring VICKIE WEBB Jun 03, 2024 04:17 PM SECONDARY custodial (current) use of anticoagulants VICKIE WEBB Plan of Treatment: Future Appointments (+ 6 months) and Future Tests (+/- 45 days) The Plan of Treatment section includes future care activities for the patient from [facility] [place] [facility]. This section includes future appointments and [...] - MEDICINE [place] [facility] [place] [facility] Jun 10, 2024 01:30 PM AMBULATORY - MEDICINE [place] [facility] [place] [facility] Jun 18, 2024 01:00 PM AMBULATORY - REHAB MEDICIN E [place] [facility] [place] [facility] Jul 22, 2024 11:30 AM AMBULATORY - MEDICINE [place] [facility] [place] [facility] August 19, 2024 10:40 AM AMBULATORY - MEDICINE [place] [facility] [place] [facility] Oct 12, 2024 11:00 AM AMBULATORY - MEDICINE [place] [facility] [place] [facility] Oct 28, 2024 04:00 PM AMBULATORY - NONE [place] [facility] [place] [facility] Active, Pending, and Scheduled Orders This section includes a listing of several types of active, pending, and scheduled orders, including clinic medications orders, diagnostic test orders, procedure orders and consult orders; where the start date of the order is 45 days before the date of the Encounter or 45 days after the date of theEncounter. The data comes from all [facility]. Test Date/Time Test Type Test Details Facility Name Jun 10, 2024 01:02 PM Consult Order COMMUNITY CARE-CARDIOLOGY Cons Back [facility] [place] [facility] [place] [facility] Jun 10, 2024 01:02 PM Consult Order COMMUNITY CARE-PULMONARY Cons Back [facility] Lab Results: +/- 30 days of the encounter This section includes the Chemistry and Hematology Lab Results on record with [place] for the patient. Radiology Reports and Pathology [...] Mar 26, 2024 03:22 PM Reporting Lab: [facility] [address] [facility] [address] Performing Lab: [address] [address] WBC 6.58 10*3/uL 4.50-11.00 RBC 3.94 10*6/uL L 4.23-5.66 HGB 11.2 g/dL L 12.8-17 HCT 33.9 L 39.2-50.4 MCV 86.0 fL 82-99 MCHC 33.0 g/dL 30.8-35.1 PLT 226 10*3/uL 140-360 RDW-CV 14.2 12.0-16.0 MCH 28.4 pg 26.2-32.6 May 20, 2024 01:32 PM [facility] LIPID PANEL, NON FASTING Specimen Type: SERUM Comment: *UREA NITROGEN Not Performed: May 20, 2024@15:11 by [id number] *GERIATRICS PHYSICIAN Reason: DUP *GLUCOSE Not Performed: May 20, 2024@15:11 by [id number] *GERIATRICS PHYSICIAN Reason: DUP *SODIUM Not Performed: May 20, 2024@15:11 by [id number] *GERIATRICS PHYSICIAN Reason: DUP *POTASSIUM Not Performed: May 20, 2024@15:11 by [id number] *GERIATRICS PHYSICIAN Reason: DUP *CHLORIDE Not Performed: May 20, 2024@15:11 by [id number] *GERIATRICS PHYSICIAN Reason: DUP *CO2 Not Performed: May 20, 2024@15:11 by [id number] *GERIATRICS PHYSICIAN Reason: DUP *CREATININE (eGFR 2020) Not Performed: May 20, 2024@15:11 by [id number] *GERIATRICS PHYSICIAN Reason: DUP Ordering Provider: RHONDA SAVAGE AM Report Released Date/Time: Mar 26, 2024 03:22 PM Reporting Lab: [address] [address] Performing Lab: [address] [address] CHOLESTEROL 141 mg/dL TRIGLYCERIDE 205 mg/dL H 0-150 LDL calculated 57 mg/dL 0-129 CHOL/HDL 3.3 HDL CHOLESTEROL 43 mg/dL 40-60 May 20, 2024 01:32 PM [facility] LIVER FUNCTION Specimen Type: SERUM Comment: *UREA NITROGEN Not Performed: May 20, 2024@15:11 by [id number] *GERIATRICS PHYSICIAN Reason: DUP *GLUCOSE Not Performed: May 20, 2024@15:11 by [id number] *GERIATRICS PHYSICIAN Reason: DUP *SODIUM Not Performed: May 20, 2024@15:11 by [id number] *GERIATRICS PHYSICIAN Reason: DUP *POTASSIUM Not Performed: May 20, 2024@15:11 by [id number] *GERIATRICS PHYSICIAN Reason: DUP *CHLORIDE Not Performed: May 20, 2024@15:11 by [id number] *GERIATRICS PHYSICIAN Reason: DUP *CO2 Not Performed: May 20, 2024@15:11 by [id number] *GERIATRICS PHYSICIAN Reason: DUP *CREATININE (eGFR 2020) Not Performed: May 20, 2024@15:11 by [id number] *GERIATRICS PHYSICIAN Reason: DUP Ordering Provider: RHONDA SAVAGE AM Report Released Date/Time: Mar 26, 2024 03:22 PM Reporting Lab: [address] [address] Performing Lab: [address] [address] PROTEIN,TOTAL 6.7 g/dL 6.0-8.3 ALBUMIN 3.8 g/dL 3.5-5.0 ALKALINE PHOSPHATASE 83 U/L 40-150 AST 13 U/L 5-34 ALT 15 U/L BILIRUBIN, TOTAL 0.4 mg/dL 0.2-1.2 May 20, 2024 01:32 PM [facility] PT & INR (PROTIME) Specimen Type: PLASMA No comment entered. Ordering Provider: RHONDA SAVAGE AM Report Released Date/Time: Mar 26, 2024 03:22 PM Reporting Lab: [address] [address] Performing Lab: [address] [address] INR 1.5 PROTIME 16.0 s H 10.0-13.1 [...] Mar 26, 2024 03:22 PM Reporting Lab: [address] [address] Performing Lab: [address] [address] HEMOGLOBIN A1C 8.6 H 4.0-5.6 May 20, 2024 01:32 PM [facility] BASIC METABOLIC PANEL (non-fasting) Specimen Type: SERUM No comment entered. Ordering Provider: ADAIR APODACA Report Released Date/Time: May 18, 2024 08:18 AM Reporting Lab: [address] [address] Performing Lab: [address] [address] UREA NITROGEN 17 mg/dL 7-25 GLUCOSE 158 [...] Reporting Lab: [facility] [address] [facility] [address] Performing Lab: [facility] [address] [facility] [address] MICROALBUMIN/C REATININE RATIO 19.1 mg/g 0-29.9 MICROALBUMIN,Q UANTITATIVE 1.5 mg/dL RR UNAVAIL CREATININE URINE 78.41 mg/dL Encounter Notes: All associated encounter notes This section contains the clinical notes associated to the Encounter. Date/Time Encounter Note(s) Provider Source Jun 03, 2024 04:22 PM ADDENDUM: LOCAL TITLE: Addendum STANDARD TITLE: ADDENDUM DATE OF NOTE: JUN 03, 2024@16:22:35 ENTRY DATE: JUN 03, 2024@16:22:36 AUTHOR: VICKIE WEBB EXP COSIGNER: URGENCY: STATUS: COMPLETED Please enter RX for apixaban 5mg q12h for mail. Thank you! /yohana/ Vickie Webb PharmD Clinical Pharmacy Practitioner Signed: 06/03/2024 16:22 Receipt Acknowledged By: 06/04/2024 07:12 /yohana/ Rome Savage DNP, TRANSPORTER RADIOLOGY-BC, CNL Primary Care Nurse Practitioner == --- Original Document --- 06/03/24 CONSULT REPORT/ANTICOAGULATION CLINIC: Initial Note: Anticoagulation DOAC Agent Progress Note Reason for visit: Initial Education for Apixaban/Eliquis Indication: atrial fibrillation Start Date: ~05/20/2024 Expected Duration: indefinite Referring Provider: Rome Savage GERIATRICS PHYSICIAN Patient Contact: (dtr Taryn) Patient has given permission to leave anticoagulation message on answering machine or with person listed. Subjective: Contacted pt; spoke w/ pt's dtr Taryn who reports pt started on apixaban ~2 weeks ago. Denies ADRs. Taking q12h. No alcohol or procedures planned. Has ~1 month of samples remaining. Labs: CBC (last 90 days): CBC Collection DT Specimen Test Name Result Units Ref Range 05/20/2024 13:32 BLOOD WBC 6.58 K/cmm 4.50 - 11.00 05/20/2024 13:32 BLOOD RBC 3.94 L M/cmm 4.23 - 5.66 05/20/2024 13:32 BLOOD HGB 11.2 L g/dL 12.8 - 17 05/20/2024 13:32 BLOOD HCT 33.9 L % 39.2 - 50.4 05/20/2024 13:32 BLOOD MCV 86.0 fl 82 - 99 05/20/2024 13:32 BLOOD MCHC 33.0 g/dL 30.8 - 35.1 05/20/2024 13:32 BLOOD PLT 226 K/cmm 140 - 360 05/20/2024 13:32 BLOOD RDW-CV 14.2 % 12.0 - 16.0 SrCr (last 6 weeks): CREATININE-EGFR 05/20/24 13:32 0.83 CRCL IBW: CrCl(est): 71.2 mL/min (Creat:0.83 05/20/24) CRCL ACT: 77.07 mL/min CRCL ADJ: 71.2 mL/min (05/20/24) Vitals: Weight (BMI): 218 lb [98.88 kg] (04/13/2024 09:56) BMI: 34.2 Height: 67 in [170.2 cm] (04/13/2024 09:56) Active Outpatient Medications (including Supplies): ALBUTEROL 90MCG (CFC-F) 200D ORAL INHL INHALE 2 PUFFS BY ACTIVE MOUTH EVERY 4 HOURS NEEDED Indication: FOR BRONCHOSPASM ATORVASTATIN CALCIUM 80MG TAB TAKE ONE-HALF TABLET BY ACTIVE (S) MOUTH ONCE DAILY Indication: FOR HIGH CHOLESTEROL CLOPIDOGREL BISULFATE 75MG TAB TAKE ONE TABLET BY MOUTH ACTIVE (S) ONCE DAILY Indication: TO PREVENT BLOOD CLOTS FLUTICASONE PROP 50MCG 120D NASAL INHL INSTILL 1 SPRAY ACTIVE INTO EACH NOSTRIL TWICE DAILY Indication: FOR NASAL IRRITATION/INFLAMMATION GLIPIZIDE 10MG TAB TAKE ONE TABLET BY MOUTH TWICE DAILY ACTIVE (S) Indication: FOR TYPE 2 DIABETES MELLITUS LEVETIRACETAM 500MG TAB TAKE ONE TABLET BY MOUTH TWICE ACTIVE DAILY Indication: FOR PARTIAL SEIZURES METOPROLOL SUCCINATE 25MG SA TAB TAKE ONE TABLET BY MOUTH ACTIVE (S) ONCE DAILY FOR BLOOD PRESSURE/HEART Indication: FOR HIGH BLOOD PRESSURE MONTELUKAST NA 10MG TAB TAKE ONE TABLET BY MOUTH ONCE ACTIVE DAILY FOR ASTHMA Indication: FOR CONTROLLER MEDICATION FOR ASTHMA OMEPRAZOLE 20MG EC CAP TAKE TWO CAPSULES BY MOUTH TWICE ACTIVE (S) DAILY BEFORE A MEAL Indication: FOR EXCESSIVE PRODUCTION OF STOMACH ACID SERTRALINE HCL 50MG TAB TAKE ONE-HALF TABLET BY MOUTH ONCE ACTIVE (S) DAILY Indication: FOR MAJOR DEPRESSIVE DISORDER SUCRALFATE 1GM TAB TAKE ONE TABLET BY MOUTH TWICE DAILY ACTIVE NEEDED Indication: FOR ULCER Interacting Meds: sertraline (monitor) Apixaban: The patient was provided with the following education: --Purpose of Apixaban --Signs and symptoms of stroke and thrombosis and what to do should they occur --Medication Identification --Dosing recommendations -Apixaban may be taken with or without food -Apixaban may be crushed --Storage recommendations -Store medication in a dry area at room temperature --Recommendations for missed doses or overdosage --Importance of medication compliance and avoiding lapses in therapy to minimize the risk of stroke --Monitor for signs/symptoms of bleeding, including: -[place] or brown urine -Red or black tarry stools -Coughing up blood -Vomiting blood or vomit that looks like coffee grounds -Reoccurring nosebleeds -Unusual bleeding from the gums -Bleeding from a cut that does not stop -Headaches, dizziness or weakness --Contact this clinic or provider if patient experiences and serious or intolerable adverse effects --Review risks associated with falling --Which medications to avoid due to drug interactions --Importance of notifying all providers of any medication patient is taking or changes that may occur --What to do if patient wants to discontinue therapy --Contact this clinic or provider if scheduled for a procedure --Contact number for the [facility] provided Assessment/Plan: CONTINUE: Apixaban 5mg twice daily Time Spent: 10 minutes Next Appt: Jun 4 weeks *please mail letter* Next PCP Appt: Jun@11:30 EDUCATION Provided with verbal instructions: Yes Provided with written instructions: Yes Barriers to learning: No Readiness to learn: Yes Specific dose directions reviewed: Yes Opportunity for questions/discussion: Yes Reports understanding of instructions: Yes Further learning needs: No PBM PharmD Pharmacotherapy Rem V12: PHARMACIST INTERVENTIONS: ANTICOAGULATION THERAPY DIRECT ORAL ANTICOAGULANT (DOAC) MANAGEMENT Medication monitoring, no dosage change required, continue to monitor and assess Medication reconciliation (changes to active VA and non-VA medication lists to reconcile differences) No changes to medication lists made (medication review completed, no discrepancies identified) /yohana/ Vickie Webb PharmD Clinical Pharmacy Practitioner Signed: 06/03/2024 16:22 Receipt Acknowledged By: 06/03/2024 16:26 /yohana/ CRUZ CARUSO CPHT Clinical Road Boss VICKIE WEBB Jun 03, 2024 04:17 PM PHARMACY MEDICATIO N MGT CONSULT: LOCAL TITLE: CONSULT REPORT/ANTICOAGULATION CLINIC STANDARD TITLE: PHARMACY MEDICATION MGT CONSULT DATE OF NOTE: JUN 03, 2024@16:17 ENTRY DATE: JUN 03, 2024@16:17:16 AUTHOR: VICKIE WEBB EXP COSIGNER: URGENCY: STATUS: COMPLETED CONSULT REPORT/ANTICOAGULATION CLINIC Has ADDENDA Initial Note: Anticoagulation DOAC Agent Progress Note Reason for visit: Initial Education for Apixaban/Eliquis Indication: atrial fibrillation Start Date: ~05/20/2024 Expected Duration: indefinite Referring Provider: Rome Savage NP Patient Contact: (dtr Taryn) Patient has given permission to leave anticoagulation message on answering machine or with person listed. Subjective: Contacted pt; spoke w/ pt's dtr Taryn who reports pt started on apixaban ~2 weeks ago. Denies ADRs. Taking q12h. No alcohol or procedures planned. Has ~1 month of samples remaining. Labs: CBC (last 90 days): CBC Collection DT Specimen Test Name Result Units Ref Range 05/20/2024 13:32 BLOOD WBC 6.58 K/cmm 4.50 - 11.00 05/20/2024 13:32 BLOOD RBC 3.94 L M/cmm 4.23 - 5.66 05/20/2024 13:32 BLOOD HGB 11.2 L g/dL 12.8 - 17 05/20/2024 13:32 BLOOD HCT 33.9 L % 39.2 - 50.4 05/20/2024 13:32 BLOOD MCV 86.0 fl 82 - 99 05/20/2024 13:32 BLOOD MCHC 33.0 g/dL 30.8 - 35.1 05/20/2024 13:32 BLOOD PLT 226 K/cmm 140 - 360 05/20/2024 13:32 BLOOD RDW-CV 14.2 % 12.0 - 16.0 SrCr (last 6 weeks): CREATININE-EGFR 05/20/24 13:32 0.83 CRCL IBW: CrCl(est): 71.2 mL/min (Creat:0.83 05/20/24) CRCL ACT: 77.07 mL/min CRCL ADJ: 71.2 mL/min (05/20/24) Vitals: Weight (BMI): 218 lb [98.88 kg] (04/13/2024 09:56) BMI: 34.2 Height: 67 in [170.2 cm] (04/13/2024 09:56) Active Outpatient Medications (including Supplies): ALBUTEROL 90MCG (CFC-F) 200D ORAL INHL INHALE 2 PUFFS BY ACTIVE MOUTH EVERY 4 HOURS NEEDED Indication: FOR BRONCHOSPASM ATORVASTATIN CALCIUM 80MG TAB TAKE ONE-HALF TABLET BY ACTIVE (S) MOUTH ONCE DAILY Indication: FOR HIGH CHOLESTEROL CLOPIDOGREL BISULFATE 75MG TAB TAKE ONE TABLET BY MOUTH ACTIVE (S) ONCE DAILY Indication: TO PREVENT BLOOD CLOTS FLUTICASONE PROP 50MCG 120D NASAL INHL INSTILL 1 SPRAY ACTIVE INTO EACH NOSTRIL TWICE DAILY Indication: FOR NASAL IRRITATION/INFLAMMATION GLIPIZIDE 10MG TAB TAKE ONE TABLET BY MOUTH TWICE DAILY ACTIVE (S) Indication: FOR TYPE 2 DIABETES MELLITUS LEVETIRACETAM 500MG TAB TAKE ONE TABLET BY MOUTH TWICE ACTIVE DAILY Indication: FOR PARTIAL SEIZURES METOPROLOL SUCCINATE 25MG SA TAB TAKE ONE TABLET BY MOUTH ACTIVE (S) ONCE DAILY FOR BLOOD PRESSURE/HEART Indication: FOR HIGH BLOOD PRESSURE MONTELUKAST NA 10MG TAB TAKE ONE TABLET BY MOUTH ONCE ACTIVE DAILY FOR ASTHMA Indication: FOR CONTROLLER MEDICATION FOR ASTHMA OMEPRAZOLE 20MG EC CAP TAKE TWO CAPSULES BY MOUTH TWICE ACTIVE (S) DAILY BEFORE A MEAL Indication: FOR EXCESSIVE PRODUCTION OF STOMACH ACID SERTRALINE HCL 50MG TAB TAKE ONE-HALF TABLET BY MOUTH ONCE ACTIVE (S) DAILY Indication: FOR MAJOR DEPRESSIVE DISORDER SUCRALFATE 1GM TAB TAKE ONE TABLET BY MOUTH TWICE DAILY ACTIVE NEEDED Indication: FOR ULCER Interacting Meds: sertraline (monitor) Apixaban: The patient was provided with the following education: --Purpose of Apixaban --Signs and symptoms of stroke and thrombosis and what to do should they occur --Medication Identification --Dosing recommendations -Apixaban may be taken with or without food -Apixaban may be crushed --Storage recommendations -Store medication in a dry area at room temperature --Recommendations for missed doses or overdosage --Importance of medication compliance and avoiding lapses in therapy to minimize the risk of stroke --Monitor for signs/symptoms of bleeding, including: -[place] or brown urine -Red or black tarry stools -Coughing up blood -Vomiting blood or vomit that looks like coffee grounds -Reoccurring nosebleeds -Unusual bleeding from the gums -Bleeding from a cut that does not stop -Headaches, dizziness or weakness --Contact this clinic or provider if patient experiences and serious or intolerable adverse effects --Review risks associated with falling --Which medications to avoid due to drug interactions --Importance of notifying all providers of any medication patient is taking or changes that may occur --What to do if patient wants to discontinue therapy --Contact this clinic or provider if scheduled for a procedure --Contact number for the [facility] provided Assessment/Plan: CONTINUE: Apixaban 5mg twice daily Time Spent: 10 minutes Next Appt: Jun 4 weeks *please mail letter* Next PCP Appt: Jun@11:30 EDUCATION Provided with verbal instructions: Yes Provided with written instructions: Yes Barriers to learning: No Readiness to learn: Yes Specific dose directions reviewed: Yes Opportunity for questions/discussion: Yes Reports understanding of instructions: Yes Further learning needs: No PBM PharmD Pharmacotherapy Rem V12: PHARMACIST INTERVENTIONS: ANTICOAGULATION THERAPY DIRECT ORAL ANTICOAGULANT (DOAC) MANAGEMENT Medication monitoring, no dosage change required, continue to monitor and assess Medication reconciliation (changes to active VA and non-VA medication lists to reconcile differences) No changes to medication lists made (medication review completed, no discrepancies identified) /yohana/ Vickie Webb PharmD Clinical Pharmacy Practitioner Signed: 06/03/2024 16:22 Receipt Acknowledged By: 06/03/2024 16:26 /yohana/ CRUZ CARUSO CPHT Clinical Road Boss 06/03/2024 ADDENDUM STATUS: COMPLETED Please enter RX for apixaban 5mg q12h for mail. Thank you! /toni Webb PharmD Clinical Pharmacy Practitioner Signed: 06/03/2024 16:22 Receipt Acknowledged By: * AWAITING SIGNATURE * ROME SAVAGE [place]
--- OUTSIDE RECORDS SUMMARY | 2024-06-17 10:19 | XMS_ITS | Continuity of Care Document ---
Author Organization [facility] Address [address] [facility], [address], [address] [place] [id number]- Care Team Providers Care Toxicologist Name Role Phone Gilbert Francis MD Primary Care Physician Encounter [facility] Date(s): 05/04/24 - 06/03/24 [facility] [address] [facility] [address]rd Floor, [address] [place] [id number]- Encounter Type: Triage Allergies, Adverse Reactions, Alerts No Known Allergies Medications apixaban 5 mg oral tablet = 5 mg, By Mouth, 2 times a day, # 60 tablet, 0 Refills, Maintenance, 05/02/24 12:35:00 PM EST, Tablet, [facility], Partial fill upon patient [...] 3:18:00 PM EDT, Route to Pharmacy Electronically, [id number], Partial fill upon patient [...] Team Personnel Name: Gilbert Francis MD Position: [facility] Outreach Member Role: PCP Address: [address] [place] [address] [place] [address]- Telecom: Name: Bart Bustillo RN Position: S RN Member Role: Primary Care Nurse Name: Radha El RN Position: S RN Member Role: Primary Care Nurse Name: Caryn Luo RN Position: S RN Member Role: Primary Care Nurse Name: Bishnu Kwan RN Position: S RN Member Role: Primary Care Nurse Name: Kylee David LPN Position: S RN Member Role: Primary Care Nurse Name: Alejandra Johnson RN Position: S RN Member Role: Primary Care Nurse Care Team Related Persons Name: MATTHIEU RAMIREZ Name: DEXTER MORAN JR Insurance Providers Guarantor name: DEXTER MORAN [facility] Plan Information #: 1 Payer: MEDICARE PART B OUTPT Member Number: NA Policy Number: NA Group Number: NA
--- OUTSIDE RECORDS SUMMARY | 2024-06-17 10:19 | XMS_ITS | Encounter Summary ---
Author Name [facility] [place] Organization [facility] [place] Address [address] [place] [id number] Care Team Providers Care Hall Coordinator Name Role Phone ROME SAVAGE Primary [facility] Insurance Providers: All historical and [...] PART A Feb 06, 2005 PART A [id number] DEXTER MORAN PATIENT MEDICARE (WNR) MEDICARE (M) PART B Feb 06, 2005 PART B [id number] DEXTER MORAN PATIENT Selected Encounter This section includes the information on record at [place] for the Encounter. Date/Time Encounter Type Encounter Description Reason Provider Source Jun 16, 2024 03:47 PM MTMS BY PHARM FINANCIAL ENGINEER 15 MIN CLINICAL PHARMACY ICD-10-CM Z51.81 Encounter for therapeutic drug level monitoring VICKIE WEBB Encounter Template Text not used by [facility] Assessments - Encounter Diagnoses This section includes the primary and secondary diagnoses documented for the Encounter. Date/Time Primary/Secondary Diagnosis Diagnosis Name Provider Source Jun 16, 2024 03:50 PM PRIMARY Encounter for therapeutic drug level monitoring VICKIE WEBB Jun 16, 2024 03:50 PM SECONDARY detention (current) use of anticoagulants VICKIE WEBB Plan of Treatment: Future Appointments (+ 6 months) and Future Tests (+/- 45 days) The Plan of Treatment section includes future care activities for the [facility] [place] [facility] This section includes future appointments and future orders which are active, pending or scheduled. Future Appointments This section includes appointments that were scheduled to occur 6 months from the date of the Encounter, up to a maximum of 20 appointments. The data comes from all [facility]. Appointment Date/Time Appointment Type Appointme nt Facility Name Jun 18, 2024 01:00 PM AMBULATORY - REHAB MEDICIN E [facility] [place] [facility] Jul 22, 2024 11:30 AM AMBULATORY - MEDICINE [facility] [place] [facility] August 19, 2024 10:40 AM AMBULATORY - MEDICINE [facility] [place] [facility] Oct 12, 2024 11:00 AM AMBULATORY - MEDICINE [facility] [place] [facility] Oct 28, 2024 04:00 PM [facility] Active, Pending, and Scheduled Orders This section includes a listing of several types of active, pending, and scheduled orders, including clinic medications orders, diagnostic test orders, procedure orders and consult orders; where the start date of the order is 45 days before the date of the Encounter or 45 days after the date of theEncounter. The data comes from all [facility]. Test Date/Time Test Type Test Details Facility Name Jun 10, 2024 01:02 PM Consult Order COMMUNITY CARE-CARDIOLOGY Cons Weapons Engineer's Choice [facility] [place] [facility] Jun 10, 2024 01:02 PM Consult Order COMMUNITY CARE-PULMONARY Cons [facility] Engineer[facility] Lab Results: +/- 30 days of the encounter This section includes the Chemistry and Hematology Lab Results on record with [place] for the patient. Radiology Reports and Pathology Reports are provided separately, in subsequent sections. Lab Results This section contains the Chemistry/Hematology Results that were resulted 30 days before or 30 daysafter the date of the Encounter. Date/Time Source Result Type Result - Unit Interpretation Reference Range Comment May 20, 2024 01:32 PM [facility] CBC Specimen Type: BLOOD No comment entered. Ordering Provider: RHONDA SAVAGE AM Report Released Date/Time: Mar 26, 2024 03:22 PM Reporting Lab: [facility] [address] [facility] [address] Performing Lab: [facility] [address] [facility] [address] WBC 6.58 10*3/uL 4.50-11.00 RBC 3.94 10*6/uL L 4.23-5.66 HGB 11.2 g/dL L 12.8-17 HCT 33.9 L 39.2-50.4 MCV 86.0 fL 82-99 MCHC 33.0 g/dL 30.8-35.1 PLT 226 10*3/uL 140-360 RDW-CV 14.2 12.0-16.0 MCH 28.4 pg 26.2-32.6 May 20, 2024 01:32 PM [facility] LIPID PANEL, NON FASTING Specimen Type: SERUM Comment: *UREA NITROGEN Not Performed: May 20, 2024@15:11 by [id number] *FINANCIAL ENGINEER Reason: DUP *GLUCOSE Not Performed: May 20, 2024@15:11 by [id number] *FINANCIAL ENGINEER Reason: DUP *SODIUM Not Performed: May 20, 2024@15:11 by [id number] *FINANCIAL ENGINEER Reason: DUP *POTASSIUM Not Performed: May 20, 2024@15:11 by [id number] *FINANCIAL ENGINEER Reason: DUP *CHLORIDE Not Performed: May 20, 2024@15:11 by [id number] *FINANCIAL ENGINEER Reason: DUP *CO2 Not Performed: May 20, 2024@15:11 by [id number] *FINANCIAL ENGINEER Reason: DUP *CREATININE (eGFR 2020) Not Performed: May 20, 2024@15:11 by [id number] *FINANCIAL ENGINEER Reason: DUP Ordering Provider: RHONDA SAVAGE AM Report Released Date/Time: Mar 26, 2024 03:22 PM Reporting Lab: [facility] [address] Performing Lab: [place] [address] [address] CHOLESTEROL 141 mg/dL TRIGLYCERIDE 205 mg/dL H 0-150 LDL calculated 57 mg/dL 0-129 CHOL/HDL 3.3 HDL CHOLESTEROL 43 mg/dL 40-60 May 20, 2024 01:32 PM [facility] LIVER FUNCTION Specimen Type: SERUM Comment: *UREA NITROGEN Not Performed: May 20, 2024@15:11 by [id number] *FINANCIAL ENGINEER Reason: DUP *GLUCOSE Not Performed: May 20, 2024@15:11 by [id number] *FINANCIAL ENGINEER Reason: DUP *SODIUM Not Performed: May 20, 2024@15:11 by [id number] *FINANCIAL ENGINEER Reason: DUP *POTASSIUM Not Performed: May 20, 2024@15:11 by [id number] *FINANCIAL ENGINEER Reason: DUP *CHLORIDE Not Performed: May 20, 2024@15:11 by [id number] *FINANCIAL ENGINEER Reason: DUP *CO2 Not Performed: May 20, 2024@15:11 by [id number] *FINANCIAL ENGINEER Reason: DUP *CREATININE (eGFR 2020) Not Performed: May 20, 2024@15:11 by [id number] *FINANCIAL ENGINEER Reason: DUP Ordering Provider: RHONDA SAVAGE AM Report Released Date/Time: Mar 26, 2024 03:22 PM Reporting Lab: [address] [address] Performing Lab: [address] [address] PROTEIN,TOTAL 6.7 g/dL 6.0-8.3 ALBUMIN 3.8 g/dL 3.5-5.0 ALKALINE PHOSPHATASE 83 U/L 40-150 AST 13 U/L 5-34 ALT 15 U/L BILIRUBIN, TOTAL 0.4 mg/dL 0.2-1.2 May 20, 2024 01:32 PM [facility] PT & INR (PROTIME) Specimen Type: PLASMA No comment entered. Ordering Provider: RHONDA SAVAGE AM Report Released Date/Time: Mar 26, 2024 03:22 PM Reporting Lab: [address] [address] Performing Lab: [address] [address] INR 1.5 PROTIME 16.0 s H 10.0-13.1 May 20, 2024 01:32 PM [facility] HEMOGLOBIN A1C PANEL Specimen Type: BLOOD [...] Mar 26, 2024 03:22 PM Reporting Lab: [address] [address] Performing Lab: [address] [address] HEMOGLOBIN A1C 8.6 H 4.0-5.6 May 20, 2024 01:32 PM [facility] BASIC METABOLIC PANEL (non-fasting) Specimen Type: SERUM No comment entered. Ordering Provider: ADAIR APODACA Report Released Date/Time: May 18, 2024 08:18 AM Reporting Lab: [address] [address] Performing Lab: [address] [address] UREA NITROGEN 17 mg/dL 7-25 GLUCOSE 158 mg/dL H 65-100 SODIUM 137 mmol/L 135-145 POTASSIUM 4.1 mmol/L 3.5-5.0 CHLORIDE 106 mmol/L 100-110 CO2 24 meq/L 20-30 CREATININE, Serum 0.83 mg/dL 0.50-1.40 eGFR(CKD-EPI 2020) 86 mL/min >60 May 20, 2024 01:32 PM [facility] MICROALBUMIN CREATININE RATIO PANEL Specimen Type: URINE No comment entered. Ordering Provider: ADAIR APODACA Report Released Date/Time: May 18, 2024 08:18 AM Reporting Lab: [facility] [address] [facility] [address] Performing Lab: [facility] [address] [facility] [address] MICROALBUMIN/C REATININE RATIO 19.1 mg/g 0-29.9 MICROALBUMIN,Q UANTITATIVE 1.5 mg/dL RR UNAVAIL CREATININE URINE 78.41 mg/dL Encounter Notes: All associated encounter notes This section contains the clinical notes associated to the Encounter. Date/Time Encounter Note(s) Provider Source Jun 16, 2024 03:47 PM PHARMACY MEDICATIO N MGT NOTE: LOCAL TITLE: PHARMACY ANTICOAGULATION NOTE STANDARD TITLE: PHARMACY MEDICATION MGT NOTE DATE OF NOTE: JUN 16, 2024@15:47 ENTRY DATE: JUN 16, 2024@15:47:29 AUTHOR: VICKIE WEBB EXP COSIGNER: URGENCY: STATUS: COMPLETED Follow-up: Anticoagulation DOAC Agent Progress Note Reason for visit: 4 week Apixaban/Eliquis Apixaban: Indication: atrial fibrillation Start Date: ~05/20/2024 Expected Duration: indefinite Referring Provider: Rome Savage NP Patient Contact: (dtr Taryn) Patient has given permission to leave anticoagulation message on answering machine or with person listed. Subjective: Contacted pt; spoke w/ pt's dtr Taryn who reports pt is doing well on apixaban. No questions/concerns. Missed Doses: No Last Refill: 06/04/24 x 90 days Refill Needed: No Administration Time: q12h Bleeding: No Dizziness/Vision Changes/Extremity Weakness: No Med Changes: No Alcohol: No Storage of Medication: Appropriate Surgeries/Procedures: No Other: (Optional) No questions/concerns Objective: Labs: CBC (last 90 days): CBC Collection [...] CREATININE-EGFR 05/20/24 13:32 0.83 CRCL IBW: CrCl(est): 71.3 mL/min (Creat:0.83 05/20/24) CRCL ACT: 77.42 mL/min CRCL ADJ: 71.3 mL/min (05/20/24) LFTs wnl 05/2024. Vitals: Weight (BMI): 219 lb [99.34 kg] (06/10/2024 11:30) Height: 67 in [170.2 cm] (06/10/2024 11:30) BMI: 34.4 Active Outpatient Medications (including Supplies): ALBUTEROL 90MCG (CFC-F) 200D ORAL INHL INHALE 2 PUFFS BY ACTIVE MOUTH EVERY 4 HOURS NEEDED Indication: FOR BRONCHOSPASM APIXABAN 5MG TAB TAKE ONE TABLET BY MOUTH EVERY 12 HOURS ACTIVE Indication: FOR PREVENTION OF BLOOD CLOTS ATORVASTATIN CALCIUM 80MG TAB TAKE ONE-HALF TABLET [...] TAB TAKE ONE TABLET BY MOUTH ACTIVE ONCE DAILY FOR BLOOD PRESSURE/HEART Indication: FOR [...] Indication: FOR ULCER Interacting Meds: sertraline (monitor) Assessment/Plan: - Pt taking medication appropriately - Continue : Apixaban 5mg twice daily Time Spent: 5 minutes Next Appt: N/A; d/c to passive monitoring Next PCP Appt: Oct EDUCATION Provided with verbal instructions: Yes Provided with written instructions: No Barriers to learning: No Readiness to learn: Yes Specific dose directions reviewed: Yes Opportunity for questions/discussion: Yes Reports understanding of instructions: Yes Further learning needs: No /yohana/ Vickie Webb PharmD Clinical Pharmacy Practitioner Signed: 06/16/2024 15:50 Receipt Acknowledged By: 06/16/2024 15:52 /yohana/ CRUZ CARUSO CPHT Clinical Case Technician VICKIE WEBB
--- OUTSIDE RECORDS SUMMARY | 2024-06-17 10:19 | XMS_ITS ---
Author Name [facility] [place] [facility] [place] [facility] [facility] [place] Address [address] [place] [id number] Care Team Providers Care Paper Hanger Name Role Phone ELOINA SAVAGE [facility] Insurance Providers: All historical and [...] PART A Feb 06, 2005 PART A [id number] DEXTER MORAN PATIENT MEDICARE (WNR) MEDICARE (M) PART B Feb 06, 2005 PART B [id number] DEXTER MORAN PATIENT Selected Encounter This section includes the information on record at [place] for the Encounter. Date/Time Encounter Type Encounter Description Reason Provider Source May 26, 2024 08:28 AM [facility] OL DIG ASSMT&MGMT 5-10 CLINICAL PHARMACY ICD-10-CM I10 Essential (primary) hypertension EV JOHNSON IHAnais Encounter Template Text not used by [place] Assessments - Encounter Diagnoses This section includes the primary and secondary diagnoses documented for the Encounter. Date/Time Primary/Secondary Diagnosis Diagnosis Name Provider Source May 26, 2024 08:29 AM PRIMARY Essential (primary) hypertension EV [facility]NSON [facility] Plan of Treatment: Future Appointments (+ 6 months) and Future Tests (+/- 45 days) The Plan of Treatment section includes future care activities for the patient from all [place] [facility] This section includes future appointments and future orders which are active, pending or scheduled. Future Appointments This section includes appointments that were scheduled to occur 6 months from the date of the Encounter, up to a maximum of 20 appointments. The data comes from all [place] treatment [facility]. Appointment Date/Time Appointment Type Appointme nt Facility Name May 27, 2024 01:30 PM AMBULATORY - MEDICINE [place] [facility] [place] [facility] Jun 10, 2024 11:30 AM [facility] Jun 10, 2024 01:30 PM [facility] Jun 18, 2024 01:00 PM AMBULATORY - REHAB MEDICIN E [place] [facility] [place] [facility] Jul 22, 2024 11:30 AM AMBULATORY - MEDICINE [place] [facility] [place] [facility] August 19, 2024 10:40 AM AMBULATORY - MEDICINE [place] [facility] [place] [facility] Oct 12, 2024 11:00 AM AMBULATORY - MEDICINE [place] [facility] [place] [facility] Oct 28, 2024 04:00 PM [facility] - NONE [facility] Active, Pending, and Scheduled Orders This section includes a listing of several types of active, pending, and scheduled orders, including clinic medications orders, diagnostic test orders, procedure orders and consult orders; where the start date of the order is 45 days before the date of the Encounter or 45 days after the date of theEncounter. The data comes from all [facility] Test Date/Time Test Type Test Details Facility Name Jun 10, 2024 01:02 PM Consult Order COMMUNITY CARE-CARDIOLOGY Cons [employer] Account Manager's Choice [facility] Jun 10, 2024 01:02 PM Consult Order COMMUNITY CARE-PULMONARY Cons [employer] Account Manager's Choice [facility] Lab Results: +/- 30 days of the encounter This section includes the Chemistry and Hematology Lab Results on record with [place] for the patient. Radiology Reports and Pathology Reports are provided separately, in subsequent sections. Lab Results This section contains the Chemistry/Hematology Results that were resulted 30 days before or 30 daysafter the date of the Encounter. Date/Time Source Result Type Result - Unit Interpretation Reference Range Comment May 20, 2024 01:32 PM [facility] CBC Specimen Type: BLOOD No comment entered. Ordering Provider: RHONDA SAVAGE AM Report Released Date/Time: Mar 26, 2024 03:22 PM Reporting Lab: [address] [address] Performing Lab: [address] [address] WBC 6.58 10*3/uL 4.50-11.00 RBC 3.94 10*6/uL L 4.23-5.66 HGB 11.2 g/dL L 12.8-17 HCT 33.9 L 39.2-50.4 MCV 86.0 fL 82-99 MCHC 33.0 g/dL 30.8-35.1 PLT 226 10*3/uL 140-360 RDW-CV 14.2 12.0-16.0 MCH 28.4 pg 26.2-32.6 May 20, 2024 01:32 PM [facility] LIPID PANEL, NON FASTING Specimen Type: SERUM Comment: *UREA NITROGEN Not Performed: May 20, 2024@15:11 by [id number] *BRIGADIER Reason: DUP *GLUCOSE Not Performed: May 20, 2024@15:11 by [id number] *BRIGADIER Reason: DUP *SODIUM Not Performed: May 20, 2024@15:11 by [id number] *BRIGADIER Reason: DUP *POTASSIUM Not Performed: May 20, 2024@15:11 by [id number] *BRIGADIER Reason: DUP *CHLORIDE Not Performed: May 20, 2024@15:11 by [id number] *BRIGADIER Reason: DUP *CO2 Not Performed: May 20, 2024@15:11 by [id number] *BRIGADIER Reason: DUP *CREATININE (eGFR 2020) Not Performed: May 20, 2024@15:11 by [id number] *BRIGADIER Reason: DUP Ordering Provider: RHONDA SAVAGE AM Report Released Date/Time: Mar 26, 2024 03:22 PM Reporting [facility] [address] [address] Performing Lab: [facility] [address] [address] CHOLESTEROL 141 mg/dL TRIGLYCERIDE 205 mg/dL H 0-150 LDL calculated 57 mg/dL 0-129 CHOL/HDL 3.3 HDL CHOLESTEROL 43 mg/dL 40-60 May 20, 2024 01:32 PM [facility] LIVER FUNCTION Specimen Type: SERUM Comment: *UREA NITROGEN Not Performed: May 20, 2024@15:11 by [id number] *BRIGADIER Reason: DUP *GLUCOSE Not Performed: May 20, 2024@15:11 by [id number] *BRIGADIER Reason: DUP *SODIUM Not Performed: May 20, 2024@15:11 by [id number] *BRIGADIER Reason: DUP *POTASSIUM Not Performed: May 20, 2024@15:11 by [id number] *BRIGADIER Reason: DUP *CHLORIDE Not Performed: May 20, 2024@15:11 by [id number] *BRIGADIER Reason: DUP *CO2 Not Performed: May 20, 2024@15:11 by [id number] *BRIGADIER Reason: DUP *CREATININE (eGFR 2020) Not Performed: May 20, 2024@15:11 by [id number] *BRIGADIER Reason: DUP Ordering Provider: RHONDA SAVAGE AM Report Released Date/Time: Mar 26, 2024 03:22 PM Reporting Lab: [facility] [address] [address] Performing Lab: [facility] [address] PROTEIN,TOTAL 6.7 g/dL 6.0-8.3 ALBUMIN 3.8 g/dL 3.5-5.0 ALKALINE PHOSPHATASE 83 U/L 40-150 AST 13 U/L 5-34 ALT 15 U/L BILIRUBIN, TOTAL 0.4 mg/dL 0.2-1.2 May 20, 2024 01:32 PM [facility] PT & INR (PROTIME) Specimen Type: PLASMA No comment entered. Ordering Provider: RHONDA SAVAGE AM Report Released Date/Time: Mar 26, 2024 03:22 PM Reporting Lab: [facility] [address] [address] Performing Lab: [address] [address] INR 1.5 PROTIME 16.0 s H 10.0-13.1 May 20, 2024 01:32 PM [facility] HEMOGLOBIN A1C PANEL Specimen Type: BLOOD [...] Mar 26, 2024 03:22 PM Reporting Lab: [facility] [address] [address] Performing Lab: [address] [address] HEMOGLOBIN A1C 8.6 H 4.0-5.6 May 20, 2024 01:32 PM [facility] BASIC METABOLIC PANEL (non-fasting) Specimen Type: SERUM No comment entered. Ordering Provider: ADAIR APODACA Report Released Date/Time: May 18, 2024 08:18 AM Reporting Lab: [address] [address] Performing Lab: [address] [address] UREA NITROGEN 17 mg/dL 7-25 GLUCOSE 158 mg/dL H 65-100 SODIUM 137 mmol/L 135-145 POTASSIUM 4.1 mmol/L 3.5-5.0 CHLORIDE 106 mmol/L 100-110 CO2 24 meq/L 20-30 CREATININE, Serum 0.83 mg/dL 0.50-1.40 eGFR(CKD-EPI 2020) 86 mL/min >60 May 20, 2024 01:32 PM [facility] MICROALBUMIN CREATININE RATIO PANEL Specimen Type: URINE No comment entered. Ordering Provider: ADAIR APODACA Report Released Date/Time: May 18, 2024 08:18 AM Reporting Lab: [facility] [address] [address] Performing Lab: [facility] [address] [address] MICROALBUMIN/C REATININE RATIO 19.1 mg/g 0-29.9 MICROALBUMIN,Q UANTITATIVE 1.5 mg/dL RR UNAVAIL CREATININE URINE 78.41 mg/dL Social History: Smoking Status (Most current) and Tobacco Use (All prior to encounter date) This section includes the most current, and the historical, smoking and tobacco- related health factors from the [place] facility where the Encounter took place. Current Smoking Status This section includes the most current smoking, or tobacco-related health factor, from the [place] facility where the Encounter took place. Date/Time Current Smoking Status Comment Facil ity August 16, 2023 11:14 AM VA-TOBACCO FORMER USER [facility] Tobacco Use History This section includes a history of the smoking, or tobacco-related health factors, that were collected on or before the date of the Encounter. The data comes from the [place] facility where the Encounter took place. Date/Time Smoking Status/Tobacco Use Comment F acility August 16, 2023 11:14 AM VA-TOBACCO QUIT 15 YRS OR MORE [facility] Encounter Notes: All associated encounter notes This section contains the clinical notes associated to the Encounter. Date/Time Encounter Note(s) Provider Source May 26, 2024 08:56 AM ADDENDUM: LOCAL TITLE: Addendum STANDARD TITLE: ADDENDUM DATE OF NOTE: MAY 26, 2024@08:56:27 ENTRY DATE: MAY 26, 2024@08:56:28 AUTHOR: ELISABETH CALLE COSIGNER: URGENCY: STATUS: COMPLETED Please see note dated 05/11/24 requesting same. Alert to [facility], please request progress notes from cardiology. Once we have these, PCP can place consult to a/c clinic. /yohana/ Elisabeth Calle MSN RN CNL Primary Care RN Signed: 05/26/2024 08:57 Receipt Acknowledged By: 05/26/2024 09:52 /yohana/ JAMILA WARNER Advanced Education Trainer for CHARLENE ESQUIVEL ====== --- Original Document --- 05/26/24 [facility] PRESCRIPTION NOTE: Pharmacy has received a COMMUNITY CARE prescription. The prescription below CANNOT BE FILLED due to the absence of an active consult. PRESCRIPTIONS HAVE BEEN DISPOSED OF APPROPRIATELY BASED ON ROUTE RECEIVED, FOLLOWING LOCAL AND FEDERAL GUIDELINES. IF PRESCRIPTION IS NEEDED, PLEASE CONTACT PROVIDER/OFFICE LISTED. PHARMACY NO LONGER HAS PRESCRIPTION(S) AND ARE UNABLE TO PROVIDE. eRx Drug: Metoprolol Succinate ER 25 MG Tablet Extended Release 24 Hour NDC: 70222645050 Written Date: MAY 25, 2024 Qty: 90 Days Supply: 90 Refills: 3 eRx Si tablet Orally Once a day 90 days eRx Drug: Eliquis 5 MG Tablet NDC: [id number] Written Date: MAY 25, 2024 Qty: 180 Days Supply: 90 Refills: 3 eRx Sig: one tab Orally twice a day 90 days Name: ZOË GROVES Address: [address] [place] [id number] [place]: [facility] Lic: Primary Phone: [phone] Fax: [phone] Please re-write the above prescription for the [place] OR input a new consult. IF A NEW CONSULT IS PLACED PLEASE: 1. Reach out to the to have them get a new prescription, OR 2. Call the community care provider's office directly for them to resend Thank you /yohana/ MAHESH JOHNSON PHARMD. Community Care Clinical Pharmacist Signed: 05/26/2024 08:29 Receipt Acknowledged By: * AWAITING SIGNATURE * ELOINA SAVAGE 05/26/2024 08:57 /yohana/ Elisabeth Calle MSN RN CNL Primary Care RN 05/26/2024 ADDENDUM STATUS: COMPLETED [facility]SA faxed request. Confirmation received. /yohana/ JAMILA WARNER Advanced Education Trainer Signed: 05/26/2024 09:52 [facility] [place] [facility] [place] [facility] May 26, 2024 08:28 AM PHARMACY OUTPATIEN T MEDICATION MGT NOTE: LOCAL TITLE: [facility] PRESCRIPTION NOTE STANDARD TITLE: PHARMACY OUTPATIENT MEDICATION MGT NOTE DATE OF NOTE: MAY 26, 2024@08:28 ENTRY DATE: MAY 26, 2024@08:28:12 AUTHOR: MAHESH JOHNSON COSIGNER: URGENCY: STATUS: COMPLETED [facility] PRESCRIPTION NOTE Has ADDENDA Pharmacy has received a COMMUNITY CARE prescription. The prescription below CANNOT BE FILLED due to the absence of an active consult. PRESCRIPTIONS HAVE BEEN DISPOSED OF APPROPRIATELY BASED ON ROUTE RECEIVED, FOLLOWING LOCAL AND FEDERAL GUIDELINES. IF PRESCRIPTION IS NEEDED, PLEASE CONTACT PROVIDER/OFFICE LISTED. PHARMACY NO LONGER HAS PRESCRIPTION(S) AND ARE UNABLE TO PROVIDE. eRx Drug: Metoprolol Succinate ER 25 MG Tablet Extended Release 24 Hour NDC: [id number] Written Date: MAY 25, 2024 Qty: 90 Days Supply: 90 Refills: 3 eRx Si tablet Orally Once a day 90 days eRx Drug: Eliquis 5 MG Tablet NDC: [id number] Written Date: MAY 25, 2024 Qty: 180 Days Supply: 90 Refills: 3 eRx Sig: one tab Orally twice a day 90 days Name: ZOË GROVES Address: [address] [place] [id number] [place]: [facility] Lic: Primary Phone: [phone] Fax: [phone] Please re-write the above prescription for the OR input a new consult. IF A NEW CONSULT IS PLACED PLEASE: 1. Reach out to the to have them get a new prescription, OR 2. Call the community care provider's office directly for them to resend Thank you /yohana/ LORNA RAMIREZD. Community Care Clinical Pharmacist Signed: 05/26/2024 08:29 Receipt Acknowledged By: 06/03/2024 12:51 /es/ Eloina Savage DNP, DIRECTOR OF CAMPUS RECREATION-BC, CNL Primary Care Nurse Practitioner 05/26/2024 08:57 /yohana/ Elisabeth Calle MSN RN CNL Primary Care RN 05/26/2024 ADDENDUM STATUS: COMPLETED Please see note dated 05/11/24 requesting same. Alert to [facility], please request progress notes from cardiology. Once we have these, PCP can place consult to a/c clinic. /yohana/ Elisabeth Calle MSN RN CNL Primary Care RN Signed: 05/26/2024 08:57 Receipt Acknowledged By: 05/26/2024 09:52 /yohana/ JAMILA WARNER Advanced Education Trainer for CHARLENE ESQUIVEL 05/26/2024 ADDENDUM STATUS: COMPLETED MSA faxed request. Confirmation received. /yohana/ JAMILA WARNER Advanced Education Trainer Signed: 05/26/2024 09:52 MA[facility]ESH J[facility]NSON [facility]L [facility]
== END 2024-06-17 10:15 | disposition home or self-care (01) ==
LOC: HO.HPSW 09:28
PROVIDERS: PCP Internal Medicine; Referring Provider Internal Medicine; Visit Provider Nurse Practitioner Family
DX: R05.9 Cough, unspecified (principal); R06.09 Other forms of dyspnea; Z91.09 Other allergy status, other than to drugs and biological substances
CPT/HCPCS: 99204

== ENCOUNTER 2024-06-17 10:27 | Outpatient (REF) | payer MEDICARE, SELFPAY ==
--- OUTSIDE RECORDS SUMMARY | 2024-06-17 12:03 | XMS_ITS | Continuity of Care Document ---
Author Name [facility] Organization [facility] Care Team Providers Care Biomechanical Engineer Name Role Phone [facility] Unavailable Unavailable Problems Combined list of problems [...] HCS COPD - Chronic Obstructive Pulmonary Disease ([facility] [id number]) [facility] [place] [...] for therapeutic drug level monitoring Active Diagnosis [facility] Diagnosis: ICD-10-CM E11.9 Type 2 diabetes mellitus without complications Active Diagnosis [facility] [place] [facility] Diagnosis: ICD-10-CM I10 Essential (primary) hypertension Active Diagnosis [facility] Diagnosis: ICD-10-CM Z46.1 Encounter for fitting and adjustment of hearing aid Active Diagnosis [facility] Diagnosis: ICD-10-CM R06.00 Dyspnea, unspecified Active Diagnosis [facility] Diagnosis: ICD-10-CM H90.3 Sensorineural hearing loss, bilateral [facility] Diagnosis: ICD-10-CM I25.10 Athscl heart disease of [place] coronary artery w/o ang pctrs Active Diagnosis [facility] Medications Combined list of outpatient medications from [...] PASM RESPIR ATORY (INHAL ATION) ACTIVE 04/14/2025 [id number] 5 ELOINA MOORE 2024 1 [facility] APIXABAN 5MG TAB TAKE ONE TABLET BY MOUTH EVERY 12 HOURS ORAL ACTIVE 06/05/2025 [id number] 5 ELOINA MOORE [facility] ATORVASTATI N CA 80MG TAB TAKE ONE-HALF TABLET BY MOUTH ONCE DAILY ORAL SUSPEND ED 04/14/2025 [id number] 5 ELOINA MOORE 2024 45 [facility] AT[place] N [place] 80MG TAB TAKE ONE-HALF TABLET BY MOUTH ONCE DAILY ORAL DISCONT INUED 10/16/2024 [id number] 5 ELOINA MOORE 2023 45 [facility] CARVEDILOL 6.25MG TAB TAKE ONE TABLET BY MOUTH TWICE DAILY ORAL DISCONT INUED BY PROVIDE R 04/14/2025 [id number] 5 ELOINA MOORE 2024 180 [facility] [place] [facility] CARVEDILOL 6.25MG TAB TAKE ONE TABLET BY MOUTH TWICE DAILY ORAL DISCONT INUED 10/16/2024 [id number] 5 ELOINA MOORE 2023 180 [facility] [place] CLOPIDOGREL BISULFATE 75MG TAB TAKE ONE TABLET BY MOUTH ONCE DAILY ORAL SUSPEND ED 04/14/2025 [id number] 5 ELOINA MOORE 2024 90 [facility] [place] [facility] CLOPIDOGREL BISULFATE 75MG TAB TAKE ONE TABLET BY MOUTH ONCE DAILY ORAL DISCONT INUED 10/16/2024 [id number] 5 ELOINA MOORE 2023 90 [facility] [place] [facility] [facility] FLUTICASONE PROPIONATE 50MCG/SPRAY SOLN,NASAL, 16GM INSTILL 1 SPRAY INTO EACH NOSTRIL TWICE DAILY FOR NASAL IRRITATI ON/INFLA MMATION NASAL ACTIVE 04/14/2025 [id number] 5 ELOINA MOORE 2024 3 [facility] [place] GLIPIZIDE 10MG TAB TAKE ONE TABLET BY MOUTH TWICE DAILY ORAL SUSPEND ED 04/14/2025 [id number] 5 ELOINA MOORE 2024 180 [facility] [place] [facility] [facility] GLIPIZIDE 10MG TAB TAKE ONE TABLET BY MOUTH TWICE DAILY ORAL DISCONT INUED 10/16/2024 [id number] 5 ELOINA MOORE 2023 180 [facility] [place] [facility] LEVETIRACET AM 500MG TAB TAKE ONE TABLET BY MOUTH TWICE DAILY FOR PARTIAL SEIZURES ORAL ACTIVE 04/14/2025 [id number] 5 ELOINA MOORE 2024 120 [facility] [place] LEVETIRACET AM 750MG TAB TAKE ONE TABLET BY MOUTH TWICE DAILY FOR PARTIAL SEIZURES ORAL DISCONT INUED (EDIT) 10/16/2024 [id number] 4 ELOINA MOORE 2023 180 [facility] [place] [facility] [facility] LOSARTAN 25MG TAB TAKE ONE TABLET BY MOUTH ONCE DAILY FOR BLOOD PRESSURE /HEART ORAL DISCONT INUED BY PROVIDE R 04/14/2025 [id number] 5 ELOINA MOORE 2024 90 [facility] LOS[place]AN 25MG TAB TAKE ONE TABLET BY MOUTH ONCE DAILY FOR BLOOD PRESSURE /HEART ORAL DISCONT INUED 10/16/2024 [id number] 5 ELOINA MOORE 2023 90 [facility] METOPROLOL SUCCINATE 25MG TAB,SA TAKE ONE TABLET BY MOUTH ONCE DAILY FOR BLOOD PRESSURE /HEART ORAL ACTIVE 06/04/2025 [id number] 5 ELOINA MOORE 2024 90 [facility] MONTELUKAST NA 10MG TAB TAKE ONE TABLET BY MOUTH ONCE DAILY FOR ASTHMA ORAL ACTIVE 04/14/2025 [id number] 5 ELOINA MOORE 2024 90 [facility] MONTELUKAST NA 10MG TAB TAKE ONE TABLET BY MOUTH ONCE DAILY FOR ASTHMA ORAL DISCONT INUED 10/16/2024 [id number] 4 ELOINA MOORE 2023 90 [facility] OMEPRAZOLE 20MG CAP,EC TAKE TWO CAPSULES BY MOUTH TWICE DAILY BEFORE A MEAL ORAL SUSPEND ED 04/14/2025 [id number] 5 ELOINA MOORE 2024 360 [facility] OMEPRAZOLE 20MG CAP,EC TAKE TWO CAPSULES BY MOUTH TWICE DAILY BEFORE A MEAL ORAL DISCONT INUED 10/16/2024 [id number] 5 ELOINA MOORE 2023 360 [facility] SERTRALINE HCL 50MG TAB TAKE ONE-HALF TABLET BY MOUTH ONCE DAILY ORAL SUSPEND ED 04/14/2025 [id number] 5 MOORE ELOINA Ponce 2024 45 [facility] SERTRALINE HCL 50MG TAB TAKE ONE-HALF TABLET BY MOUTH ONCE DAILY ORAL DISCONT INUED 10/16/2024 [id number] 5 MOOREELOINA Rosario 2023 45 [facility] SUCRALFATE 1GM TAB TAKE ONE TABLET BY MOUTH TWICE DAILY NEEDED FOR ULCER ORAL ACTIVE 10/16/2024 [id number] 4 MOORE ELOINA Ponce 2023 180 [facility] Allergies, Adverse Reactions, Alerts Combined list of allergies from Department of Defense and Veterans Affairs facilities. It does not include entries that were removed or entered in error. Substance Category Reaction Severity Reaction type Status Date Reported Comments Source METFORMIN Propensity to adverse reactions to drug (finding) Diarrhea [facility] Immunizations Combined list of available immunizations from the Department of Defense and Veterans Affairs facilities. Immunization Series Date Given Administered By Site Reaction Lot Number CVX Code Drug Office Technologist Status Comments Source COVID-19 (MODERNA), MRNA, LNP-S, PF, 50 MCG/0.5 ML (AGES 12+ YEARS) 2024 KRISTINA CALLEA RIGHT DELTO ID [id number] 312 complet ed [facility] INFLUENZA, HIGH-DOSE, TRIVALENT, PF 2024 KRISTINA CALLEA LEFT DELTO ID [id number] 135 complet ed [facility] INFLUENZA, UNSPECIFIED FORMULATION 2022 88 complet ed [facility] Results Combined list of recent chemistry, hematology [...] PM Reporting Lab: [facility] [place] [facility] [address] [facility] [facility] [address] Performing Lab: [facility] [place] [facility] [address] [facility] [facility] [address] [facility] [place] [facility] CBC ERYTHROCYTE S [#/VOLUME] IN BLOOD BY AUTOMATED COUNT 3.94 10*6/u L 4.23 - 5.66 05/20 L Specimen Type: BLOOD No comment entered. Ordering Provider: LIAM MOORE Report Released Date/Time: Mar 26, 2024 03:22 PM Reporting Lab: [facility] [place] [facility] [address] [facility] [facility] [address] Performing Lab: [facility] [place] [address] [address] [facility] [place] [facility] CBC HEMOGLOBIN [MASS/VOLUM E] IN BLOOD 11.2 g/dL 12.8 - 17 05/20 L Specimen Type: BLOOD No comment entered. Ordering Provider: LIAM MOORE Report Released Date/Time: Mar 26, 2024 03:22 PM Reporting Lab: [facility] [place] [facility] [address] [facility] [facility] [address] Performing Lab: [facility] [place] [address] [address] [facility] [place] [facility] CBC HEMATOCRIT [VOLUME FRACTION] OF BLOOD BY AUTOMATED COUNT 33.9 39.2 - 50.4 05/20 L Specimen Type: BLOOD No comment entered. Ordering Provider: LIAM MOORE Report Released Date/Time: Mar 26, 2024 03:22 PM Reporting Lab: [facility] [place] [facility] [address] [facility] [facility] [address] Performing Lab: [facility] [place] [address] [address] [facility] [place] [facility] CBC MCV [ENTITIC VOLUME] BY AUTOMATED COUNT 86.0 fL 82 - 99 05/20 Specimen Type: BLOOD No comment entered. Ordering Provider: LIAM MOORE Report Released Date/Time: Mar 26, 2024 03:22 PM Reporting Lab: [facility] [place] [facility] [address] [facility] [facility] [address] Performing Lab: [facility] [place] [facility] [address] [facility] [facility] [address] [facility] [place] [facility] CBC MCHC [MASS/VOLUM E] BY AUTOMATED COUNT 33.0 g/dL 30.8 - 35.1 05/20 Specimen Type: BLOOD No comment entered. Ordering Provider: LIAM MOORE Report Released Date/Time: Mar 26, 2024 03:22 PM Reporting Lab: [facility] [place] [facility] [address] [facility] [address] Performing Lab: [facility] [place] [facility] [address] [address] [facility] [place] [facility] CBC PLATELETS [#/VOLUME] IN BLOOD BY AUTOMATED COUNT 226 10*3/u L 140 - 360 05/20 Specimen Type: BLOOD No comment entered. Ordering Provider: LIAM MOROE Report Released Date/Time: Mar 26, 2024 03:22 PM Reporting Lab: [facility] [place] [facility] [address] [address] Performing Lab: [facility] [place] [facility] [address] [facility] [address] [facility] [place] [facility] CBC ERYTHROCYTE DISTRIBUTIO N WIDTH [RATIO] BY AUTOMATED COUNT 14.2 12.0 - 16.0 05/20 Specimen Type: BLOOD No comment entered. Ordering Provider: LIAM MOORE Report Released Date/Time: Mar 26, 2024 03:22 PM Reporting Lab: [facility] [place] [facility] [address] [facility] [address] Performing Lab: [facility] [place] [facility] [address] [address] [facility] CBC MCH [ENTITIC MASS] BY AUTOMATED COUNT 28.4 pg 26.2 - 32.6 05/20 Specimen Type: BLOOD No comment entered. Ordering Provider: LIAM MOORE Report Released Date/Time: Mar 26, 2024 03:22 PM Reporting Lab: [address] [address] Performing Lab: [address] [address] [facility] HEMOGLOBI N A1C PANEL HEMOGLOBIN A1C/HEMOGLO BIN.TOTAL [...] Mar 26, 2024 03:22 PM Reporting Lab: [address] [address] Performing Lab: [address] [address] [facility] LIPID PANEL, NON FASTING CHOLESTEROL [MASS/VOLUM E] IN SERUM OR PLASMA 141 mg/dL 05/20 Specimen Type: SERUM Comment: *UREA NITROGEN Not Performed: May 20, 2024@15:11 by [id number] *LSW Reason: DUP *GLUCOSE Not Performed: May 20, 2024@15:11 by [id number] *LSW Reason: DUP *SODIUM Not Performed: May 20, 2024@15:11 by [id number] *LSW Reason: DUP *POTASSIUM Not Performed: May 20, 2024@15:11 by [id number] *LSW Reason: DUP *CHLORIDE Not Performed: May 20, 2024@15:11 by [id number] *LSW Reason: DUP *CO2 Not Performed: May 20, 2024@15:11 by [id number] *LSW Reason: DUP *CREATININE (eGFR 2020) Not Performed: May 20, 2024@15:11 by [id number] *LSW Reason: DUP Ordering Provider: LIAM MOORE Report Released Date/Time: Mar 26, 2024 03:22 PM Reporting Lab: [facility] [place] [facility] [address] [address] Performing Lab: [place] [facility] [place] [facility] [address] [address] [facility] [place] [facility] LIPID PANEL, NON FASTING TRIGLYCERID E [MASS/VOLUM E] IN SERUM OR PLASMA 205 mg/dL 0 - 150 05/20 H Specimen Type: SERUM Comment: *UREA NITROGEN Not Performed: May 20, 2024@15:11 by [id number] *LSW Reason: DUP *GLUCOSE Not Performed: May 20, 2024@15:11 by [id number] *LSW Reason: DUP *SODIUM Not Performed: May 20, 2024@15:11 by [id number] *LSW Reason: DUP *POTASSIUM Not Performed: May 20, 2024@15:11 by [id number] *LSW Reason: DUP *CHLORIDE Not Performed: May 20, 2024@15:11 by [id number] *LSW Reason: DUP *CO2 Not Performed: May 20, 2024@15:11 by [id number] *LSW Reason: DUP *CREATININE (eGFR 2020) Not Performed: May 20, 2024@15:11 by [id number] *LSW Reason: DUP Ordering Provider: LIAM MOORE Report Released Date/Time: Mar 26, 2024 03:22 PM Reporting Lab: [facility] [place] [facility] [address] [address] Performing Lab: [facility] [place] [facility] [address] [address] [facility] [place] [facility] LIPID PANEL, NON FASTING CHOLESTEROL IN LDL [MASS/VOLUM E] IN SERUM OR PLASMA BY CALCULATION 57 mg/dL 0 - 129 05/20 Specimen Type: SERUM Comment: *UREA NITROGEN Not Performed: May 20, 2024@15:11 by [id number] *LSW Reason: DUP *GLUCOSE Not Performed: May 20, 2024@15:11 by [id number] *LSW Reason: DUP *SODIUM Not Performed: May 20, 2024@15:11 by [id number] *LSW Reason: DUP *POTASSIUM Not Performed: May 20, 2024@15:11 by [id number] *LSW Reason: DUP *CHLORIDE Not Performed: May 20, 2024@15:11 by [id number] *LSW Reason: DUP *CO2 Not Performed: May 20, 2024@15:11 by [id number] *LSW Reason: DUP *CREATININE (eGFR 2020) Not Performed: May 20, 2024@15:11 by [id number] *LSW Reason: DUP Ordering Provider: LIAM MOORE Report Released Date/Time: Mar 26, 2024 03:22 PM Reporting Lab: [facility] [address] [address] Performing Lab: [place] [employer]RL TRN [employer] ApplicationsUSE[address] [address] [facility] LIPID PANEL, NON FASTING CHOLESTEROL .TOTAL/CHOL ESTEROL IN HDL [MASS RATIO] IN SERUM OR PLASMA 3.3 05/20 Specimen Type: SERUM Comment: *UREA NITROGEN Not Performed: May 20, 2024@15:11 by [id number] *LSW Reason: DUP *GLUCOSE Not Performed: May 20, 2024@15:11 by [id number] *LSW Reason: DUP *SODIUM Not Performed: May 20, 2024@15:11 by [id number] *LSW Reason: DUP *POTASSIUM Not Performed: May 20, 2024@15:11 by [id number] *LSW Reason: DUP *CHLORIDE Not Performed: May 20, 2024@15:11 by [id number] *LSW Reason: DUP *CO2 Not Performed: May 20, 2024@15:11 by [id number] *LSW Reason: DUP *CREATININE (eGFR 2020) Not Performed: May 20, 2024@15:11 by [id number] *LSW Reason: DUP Ordering Provider: LIAM MOORE Report Released Date/Time: Mar 26, 2024 03:22 PM Reporting Lab: [facility] [address] Performing Lab: [facility] [address] [facility] LIPID PANEL, NON FASTING CHOLESTEROL IN HDL [MASS/VOLUM E] IN SERUM OR PLASMA 43 mg/dL 40 - 60 05/20 Specimen Type: SERUM Comment: *UREA NITROGEN Not Performed: May 20, 2024@15:11 by [id number] *LSW Reason: DUP *GLUCOSE Not Performed: May 20, 2024@15:11 by [id number] *LSW Reason: DUP *SODIUM Not Performed: May 20, 2024@15:11 by [id number] *LSW Reason: DUP *POTASSIUM Not Performed: May 20, 2024@15:11 by [id number] *LSW Reason: DUP *CHLORIDE Not Performed: May 20, 2024@15:11 by [id number] *LSW Reason: DUP *CO2 Not Performed: May 20, 2024@15:11 by [id number] *LSW Reason: DUP *CREATININE (eGFR 2020) Not Performed: May 20, 2024@15:11 by [id number] *LSW Reason: DUP Ordering Provider: LIAM MOORE Report Released Date/Time: Mar 26, 2024 03:22 PM Reporting Lab: [address] [address] Performing Lab: [address] [address] [facility] LIVER FUNCTION PROTEIN [MASS/VOLUM E] IN SERUM OR PLASMA 6.7 g/dL 6.0 - 8.3 05/20 Specimen Type: SERUM Comment: *UREA NITROGEN Not Performed: May 20, 2024@15:11 by [id number] *LSW Reason: DUP *GLUCOSE Not Performed: May 20, 2024@15:11 by [id number] *LSW Reason: DUP *SODIUM Not Performed: May 20, 2024@15:11 by [id number] *LSW Reason: DUP *POTASSIUM Not Performed: May 20, 2024@15:11 by [id number] *LSW Reason: DUP *CHLORIDE Not Performed: May 20, 2024@15:11 by [id number] *LSW Reason: DUP *CO2 Not Performed: May 20, 2024@15:11 by [id number] *LSW Reason: DUP *CREATININE (eGFR 2020) Not Performed: May 20, 2024@15:11 by [id number] *LSW Reason: DUP Ordering Provider: LIAM MOORE Report Released Date/Time: Mar 26, 2024 03:22 PM Reporting Lab: [place] [facility] [place] [facility] [address] [facility] [facility] [address] Performing Lab: [place] [facility] [place] [facility] [address] [facility] [facility] [address] [place] [facility] [facility] LIVER FUNCTION ALBUMIN [MASS/VOLUM E] IN SERUM OR PLASMA 3.8 g/dL 3.5 - 5.0 05/20 Specimen Type: SERUM Comment: *UREA NITROGEN Not Performed: May 20, 2024@15:11 by [id number] *LSW Reason: DUP *GLUCOSE Not Performed: May 20, 2024@15:11 by [id number] *LSW Reason: DUP *SODIUM Not Performed: May 20, 2024@15:11 by [id number] *LSW Reason: DUP *POTASSIUM Not Performed: May 20, 2024@15:11 by [id number] *LSW Reason: DUP *CHLORIDE Not Performed: May 20, 2024@15:11 by [id number] *LSW Reason: DUP *CO2 Not Performed: May 20, 2024@15:11 by [id number] *LSW Reason: DUP *CREATININE (eGFR 2020) Not Performed: May 20, 2024@15:11 by [id number] *LSW Reason: DUP Ordering Provider: LIAM MOORE Report Released Date/Time: Mar 26, 2024 03:22 PM Reporting Lab: [place] [facility] [place] [facility] [address] [facility] [facility] [address] Performing Lab: [place] [facility] [place] [facility] [address] [facility] [facility] [address] [place] [facility] [place] [facility] LIVER FUNCTION ALKALINE PHOSPHATASE [ENZYMATIC ACTIVITY/VO LUME] IN SERUM OR PLASMA 83 U/L 40 - 150 05/20 Specimen Type: SERUM Comment: *UREA NITROGEN Not Performed: May 20, 2024@15:11 by [id number] *LSW Reason: DUP *GLUCOSE Not Performed: May 20, 2024@15:11 by [id number] *LSW Reason: DUP *SODIUM Not Performed: May 20, 2024@15:11 by [id number] *LSW Reason: DUP *POTASSIUM Not Performed: May 20, 2024@15:11 by [id number] *LSW Reason: DUP *CHLORIDE Not Performed: May 20, 2024@15:11 by [id number] *LSW Reason: DUP *CO2 Not Performed: May 20, 2024@15:11 by [id number] *LSW Reason: DUP *CREATININE (eGFR 2020) Not Performed: May 20, 2024@15:11 by [id number] *LSW Reason: DUP Ordering Provider: LIAM MOORE Report Released Date/Time: Mar 26, 2024 03:22 PM Reporting Lab: [facility]ITAL[facility] [address] Performing Lab: [place] [facility] [address] [address] [facility]OTHANTRN [facility] LIVER FUNCTION ASPARTATE AMINOTRANSF ERASE [ENZYMATIC ACTIVITY/VO LUME] IN SERUM OR PLASMA 13 U/L 5 - 34 05/20 Specimen Type: SERUM Comment: *UREA NITROGEN Not Performed: May 20, 2024@15:11 by [id number] *LSW Reason: DUP *GLUCOSE Not Performed: May 20, 2024@15:11 by [id number] *LSW Reason: DUP *SODIUM Not Performed: May 20, 2024@15:11 by [id number] *LSW Reason: DUP *POTASSIUM Not Performed: May 20, 2024@15:11 by [id number] *LSW Reason: DUP *CHLORIDE Not Performed: May 20, 2024@15:11 by [id number] *LSW Reason: DUP *CO2 Not Performed: May 20, 2024@15:11 by [id number] *LSW Reason: DUP *CREATININE (eGFR 2020) Not Performed: May 20, 2024@15:11 by [id number] *LSW Reason: DUP Ordering Provider: LIAM MOORE Report Released Date/Time: Mar 26, 2024 03:22 PM Reporting Lab: [facility] [place] [facility] [address] [facility] [facility] [address] Performing Lab: [facility] [facility] [address] [facility] [facility] [address] [place] [facility] [place] [facility] LIVER FUNCTION ALANINE AMINOTRANSF ERASE [ENZYMATIC ACTIVITY/VO LUME] IN SERUM OR PLASMA 15 U/L 05/20 Specimen Type: SERUM Comment: *UREA NITROGEN Not Performed: May 20, 2024@15:11 by [id number] *LSW Reason: DUP *GLUCOSE Not Performed: May 20, 2024@15:11 by [id number] *LSW Reason: DUP *SODIUM Not Performed: May 20, 2024@15:11 by [id number] *LSW Reason: DUP *POTASSIUM Not Performed: May 20, 2024@15:11 by [id number] *LSW Reason: DUP *CHLORIDE Not Performed: May 20, 2024@15:11 by [id number] *LSW Reason: DUP *CO2 Not Performed: May 20, 2024@15:11 by [id number] *LSW Reason: DUP *CREATININE (eGFR 2020) Not Performed: May 20, 2024@15:11 by [id number] *LSW Reason: DUP Ordering Provider: LIAM MOORE Report Released Date/Time: Mar 26, 2024 03:22 PM Reporting Lab: [place] [address] [address] Performing Lab: [place] [facility] [place] [address] [address] [facility] [place] [facility] LIVER FUNCTION BILIRUBIN.T OTAL [MASS/VOLUM E] IN SERUM OR PLASMA 0.4 mg/dL 0.2 - 1.2 05/20 Specimen Type: SERUM Comment: *UREA NITROGEN Not Performed: May 20, 2024@15:11 by [id number] *LSW Reason: DUP *GLUCOSE Not Performed: May 20, 2024@15:11 by [id number] *LSW Reason: DUP *SODIUM Not Performed: May 20, 2024@15:11 by [id number] *LSW Reason: DUP *POTASSIUM Not Performed: May 20, 2024@15:11 by [id number] *LSW Reason: DUP *CHLORIDE Not Performed: May 20, 2024@15:11 by [id number] *LSW Reason: DUP *CO2 Not Performed: May 20, 2024@15:11 by [id number] *LSW Reason: DUP *CREATININE (eGFR 2020) Not Performed: May 20, 2024@15:11 by [id number] *LSW Reason: DUP Ordering Provider: LIAM MOORE Report Released Date/Time: Mar 26, 2024 03:22 PM Reporting Lab: [facility] [place] [facility] [address] [facility] [address] Performing Lab: [facility] [place] [facility] [address] [address] [facility] [place] [facility] PT & INR (PROTIME) INR IN PLATELET POOR PLASMA BY COAGULATION ASSAY 1.5 05/20 Specimen Type: PLASMA No comment entered. Ordering Provider: LIAM MOORE Report Released Date/Time: Mar 26, 2024 03:22 PM Reporting Lab: [facility] [place] [facility] [address] [address] Performing Lab: [place] [facility] [place] [facility] [address] [address] [facility] [place] [facility] PT & INR (PROTIME) PROTHROMBIN TIME (PT) 16.0 s 10.0 - 13.1 05/20 H Specimen Type: PLASMA No comment entered. Ordering Provider: LIAM MOORE Report Released Date/Time: Mar 26, 2024 03:22 PM Reporting Lab: [facility] [place] [facility] [address] [address] Performing Lab: [place] [facility] [place] [facility] [address] [address] [facility] [place] [facility] BASIC METABOLIC PANEL (non-fast ing) UREA NITROGEN [MASS/VOLUM E] IN SERUM OR PLASMA 17 mg/dL 7 - 25 05/20 Specimen Type: SERUM No comment entered. Ordering Provider: GDULA,ADAIR A Report Released Date/Time: May 18, 2024 08:18 AM Reporting Lab: [facility] [place] [address] Performing Lab: [facility] [address] [address] [facility] BASIC METABOLIC PANEL (non-fast ing) GLUCOSE [MASS/VOLUM E] IN SERUM OR PLASMA 158 mg/dL 65 - 100 05/20 H Specimen Type: SERUM No comment entered. Ordering Provider: ADAIR APODACA Report Released Date/Time: May 18, 2024 08:18 AM Reporting Lab: [facility] [address] [address] Performing Lab: [facility] [address] [address] [facility] [facility] BASIC METABOLIC PANEL (non-fast ing) SODIUM [MOLES/VOLU ME] IN SERUM OR PLASMA 137 mmol/L 135 - 145 05/20 Specimen Type: SERUM No comment entered. Ordering Provider: ADAIR APODACA Report Released Date/Time: May 18, 2024 08:18 AM Reporting Lab: [facility] [address] Performing Lab: [facility] [address] [facility] BASIC METABOLIC PANEL (non-fast ing) POTASSIUM [MOLES/VOLU ME] IN SERUM OR PLASMA 4.1 mmol/L 3.5 - 5.0 05/20 Specimen Type: SERUM No comment entered. Ordering Provider: ADAIR APODACA Report Released Date/Time: May 18, 2024 08:18 AM Reporting Lab: [facility] [address] Performing Lab: [facility] [address] [facility] BASIC METABOLIC PANEL (non-fast ing) CHLORIDE [MOLES/VOLU ME] IN SERUM OR PLASMA 106 mmol/L 100 - 110 05/20 Specimen Type: SERUM No comment entered. Ordering Provider: ADAIR APODACA Report Released Date/Time: May 18, 2024 08:18 AM Reporting Lab: [address] [address] Performing Lab: [address] [address] [facility] BASIC METABOLIC PANEL (non-fast ing) CARBON DIOXIDE, TOTAL [MOLES/VOLU ME] IN SERUM OR PLASMA 24 meq/L 20 - 30 05/20 Specimen Type: SERUM No comment entered. Ordering Provider: ADAIR APODACA Report Released Date/Time: May 18, 2024 08:18 AM Reporting Lab: [address] [address] Performing Lab: [address] [address] [facility] BASIC METABOLIC PANEL (non-fast ing) CREATININE [MASS/VOLUM E] IN SERUM OR PLASMA 0.83 mg/dL 0.50 - 1.40 05/20 Specimen Type: SERUM No comment entered. Ordering Provider: ADAIR APODACA Report Released Date/Time: May 18, 2024 08:18 AM Reporting Lab: [address] [address] Performing Lab: [address] [address] [facility] BASIC METABOLIC PANEL (non-fast ing) GLOMERULAR FILTRATION RATE/1.73 SQ M.PREDICTED [VOLUME RATE/AREA] IN SERUM, PLASMA OR BLOOD BY CREATININE- BASED FORMULA (CKD-EPI 2020) 86 mL/min 60 05/20 Specimen Type: SERUM No comment entered. Ordering Provider: ADAIR APODACA Report Released Date/Time: May 18, 2024 08:18 AM Reporting Lab: [address] [place] [address] Performing Lab: [facility] [place] [facility] [address] [facility] [address] [facility] [place] [facility] MICROALBU MIN CREATININ E RATIO PANEL MICROALBUMI N/CREATININ E [MASS RATIO] IN URINE 19.1 mg/g 0 - 29.9 05/20 Specimen Type: URINE No comment entered. Ordering Provider: ADAIR APODACA Report Released Date/Time: May 18, 2024 08:18 AM Reporting Lab: [facility] [place] [facility] [address] [facility] [address] Performing Lab: [place] [place] [facility] [address] [facility] [address] [place] [facility] [place] [facility] MICROALBU MIN CREATININ E RATIO PANEL MICROALBUMI N [MASS/VOLUM E] IN URINE 1.5 mg/dL 05/20 Specimen Type: URINE No comment entered. Ordering Provider: ADAIR APODACA Report Released Date/Time: May 18, 2024 08:18 AM Reporting Lab: [place] [place] [facility] [address] [facility] [address] Performing Lab: [place] [facility] [address] [facility] [address] [place] [facility] [place] [facility] MICROALBU MIN CREATININ E RATIO PANEL CREATININE [MASS/VOLUM E] IN URINE 78.41 mg/dL 05/20 Specimen Type: URINE No comment entered. Ordering Provider: ADAIR APODACA Report Released Date/Time: May 18, 2024 08:18 AM Reporting Lab: [facility] [place] [facility] [address] [facility] [address] Performing Lab: [facility] [place] [facility] [address] [facility] [address] [facility] [place] [facility] BASIC METABOLIC PANEL (non-fast ing) UREA NITROGEN [MASS/VOLUM E] IN SERUM OR PLASMA 25 mg/dL 7 - 25 10/15 Specimen Type: SERUM No comment entered. Ordering Provider: LIAM MOORE Report Released Date/Time: Oct 02, 2023 11:31 AM Reporting Lab: [place] [facility] [address] [facility] [address] Performing Lab: [place] [facility] [place] [facility] [address] [facility] [address] [facility] [place] [facility] BASIC METABOLIC PANEL (non-fast ing) GLUCOSE [MASS/VOLUM E] IN SERUM OR PLASMA 121 mg/dL 65 - 100 10/15 H Specimen Type: SERUM No comment entered. Ordering Provider: LIAM MOORE Report Released Date/Time: Oct 02, 2023 11:31 AM Reporting Lab: [place] [facility] [address] [facility] [facility] [address] Performing Lab: [place] [facility] [address] [facility] BASIC METABOLIC PANEL (non-fast ing) SODIUM [MOLES/VOLU ME] IN SERUM OR PLASMA 135 mmol/L 135 - 145 10/15 Specimen Type: SERUM No comment entered. Ordering Provider: LIAM MOORE Report Released Date/Time: Oct 02, 2023 11:31 AM Reporting Lab: [place] [place] [facility] [address] [facility] [facility] [address] Performing Lab: [facility] [address] [address] [facility] BASIC METABOLIC PANEL (non-fast ing) POTASSIUM [MOLES/VOLU ME] IN SERUM OR PLASMA 4.1 mmol/L 3.5 - 5.0 10/15 Specimen Type: SERUM No comment entered. Ordering Provider: LIAM MOORE Report Released Date/Time: Oct 02, 2023 11:31 AM Reporting Lab: [place] [facility] [place] [facility] [address] [facility] [facility] [address] Performing Lab: [place] [facility] [place] [facility] [address] [facility] [address] [facility] BASIC METABOLIC PANEL (non-fast ing) CHLORIDE [MOLES/VOLU ME] IN SERUM OR PLASMA 104 mmol/L 100 - 110 10/15 Specimen Type: SERUM No comment entered. Ordering Provider: LIAM MOORE Report Released Date/Time: Oct 02, 2023 11:31 AM Reporting Lab: [address] [address] Performing Lab: [address] [address] [facility] BASIC METABOLIC PANEL (non-fast ing) CARBON DIOXIDE, TOTAL [MOLES/VOLU ME] IN SERUM OR PLASMA 21 meq/L 20 - 30 10/15 Specimen Type: SERUM No comment entered. Ordering Provider: LIAM MOORE Report Released Date/Time: Oct 02, 2023 11:31 AM Reporting Lab: [address] [address] Performing Lab: [address] [address] [facility] BASIC METABOLIC PANEL (non-fast ing) CREATININE [MASS/VOLUM E] IN SERUM OR PLASMA 0.90 mg/dL 0.50 - 1.40 10/15 Specimen Type: SERUM No comment entered. Ordering Provider: LIAM MOORE Report Released Date/Time: Oct 02, 2023 11:31 AM Reporting Lab: [address] [address] Performing Lab: [address] [address] [facility] BASIC METABOLIC PANEL (non-fast ing) GLOMERULAR FILTRATION RATE/1.73 SQ M.PREDICTED [VOLUME RATE/AREA] IN SERUM, PLASMA OR BLOOD BY CREATININE- BASED FORMULA (CKD-EPI 2020) 85 mL/min 60 10/15 Specimen Type: SERUM No comment entered. Ordering Provider: LIAM MOORE Report Released Date/Time: Oct 02, 2023 11:31 AM Reporting Lab: [facility] [place] [facility] [address] [facility] [facility] [address] Performing Lab: [place] [facility] [address] [facility] [facility] [address] [place] [facility] [place] [facility] LIPID PANEL, NON FASTING CHOLESTEROL [MASS/VOLUM E] IN SERUM OR PLASMA 163 mg/dL 10/15 Specimen Type: SERUM No comment entered. Ordering Provider: LIAM MOORE Report Released Date/Time: Oct 02, 2023 11:31 AM Reporting Lab: [place] [place] [facility] [address] [facility] [facility] [address] Performing Lab: [place] [facility] [place] [facility] [address] [facility] [facility] [address] [facility] LIPID PANEL, NON FASTING TRIGLYCERID E [MASS/VOLUM E] IN SERUM OR PLASMA 148 mg/dL 0 - 150 10/15 Specimen Type: SERUM No comment entered. Ordering Provider: LIAM MOORE Report Released Date/Time: Oct 02, 2023 11:31 AM Reporting Lab: [facility] [place] [facility] [address] [facility] [facility] [address] Performing Lab: [place] [facility] [place] [facility] [address] [facility] [facility] [address] [facility] [place] [facility] LIPID PANEL, NON FASTING CHOLESTEROL IN LDL [MASS/VOLUM E] IN SERUM OR PLASMA BY CALCULATION 86 mg/dL 0 - 129 10/15 Specimen Type: SERUM No comment entered. Ordering Provider: LIAM MOORE Report Released Date/Time: Oct 02, 2023 11:31 AM Reporting Lab: [facility] [facility] [address] [facility] [facility] [address] Performing Lab: [place] [facility] [facility] [address] [facility] [facility] [address] [facility] [place] [facility] LIPID PANEL, NON FASTING CHOLESTEROL .TOTAL/CHOL ESTEROL IN HDL [MASS RATIO] IN SERUM OR PLASMA 3.5 10/15 Specimen Type: SERUM No comment entered. Ordering Provider: LIAM MOORE Report Released Date/Time: Oct 02, 2023 11:31 AM Reporting Lab: [facility] [place] [facility] [address] [facility] [address] Performing Lab: [facility] [place] [facility] [address] [facility] [address] [facility] [place] [facility] LIPID PANEL, NON FASTING CHOLESTEROL IN HDL [MASS/VOLUM E] IN SERUM OR PLASMA 47 mg/dL 40 - 60 10/15 Specimen Type: SERUM No comment entered. Ordering Provider: LIAM MOORE Report Released Date/Time: Oct 02, 2023 11:31 AM Reporting Lab: [facility] [place] [facility] [address] [facility] [address] Performing Lab: [place] [place] [facility] [address] [facility] [address] [place] [place] [facility] LIVER FUNCTION PROTEIN [MASS/VOLUM E] IN SERUM OR PLASMA 6.6 g/dL 6.0 - 8.3 10/15 Specimen Type: SERUM No comment entered. Ordering Provider: LIAM MOORE Report Released Date/Time: Oct 02, 2023 11:31 AM Reporting Lab: [facility] [place] [facility] [address] [facility] [address] Performing Lab: [facility] [place] [facility] [address] [facility] [address] [facility] [place] [facility] LIVER FUNCTION ALBUMIN [MASS/VOLUM E] IN SERUM OR PLASMA 3.7 g/dL 3.5 - 5.0 10/15 Specimen Type: SERUM No comment entered. Ordering Provider: LIAM MOORE Report Released Date/Time: Oct 02, 2023 11:31 AM Reporting Lab: [facility] [place] [facility] [address] [facility] [address] Performing Lab: [facility] [place] [facility] [address] [facility] [address] [facility] [place] [facility] LIVER FUNCTION ALKALINE PHOSPHATASE [ENZYMATIC ACTIVITY/VO LUME] IN SERUM OR PLASMA 86 U/L 40 - 150 10/15 Specimen Type: SERUM No comment entered. Ordering Provider: LIAM MOORE Report Released Date/Time: Oct 02, 2023 11:31 AM Reporting Lab: [facility] [place] [facility] [address] [facility] [address] Performing Lab: [facility] [place] [facility] [address] [facility] [address] [facility] [place] [facility] LIVER FUNCTION ASPARTATE AMINOTRANSF ERASE [ENZYMATIC ACTIVITY/VO LUME] IN SERUM OR PLASMA 17 U/L 5 - 34 10/15 Specimen Type: SERUM No comment entered. Ordering Provider: LIAM MOORE Report Released Date/Time: Oct 02, 2023 11:31 AM Reporting Lab: [facility] [place] [address] [address] Performing Lab: [facility] [place] [facility] [address] [facility] [address] [place] [facility] [place] [facility] LIVER FUNCTION ALANINE AMINOTRANSF ERASE [ENZYMATIC ACTIVITY/VO LUME] IN SERUM OR PLASMA 21 U/L 10/15 Specimen Type: SERUM No comment entered. Ordering Provider: LIAM MOORE Report Released Date/Time: Oct 02, 2023 11:31 AM Reporting Lab: [facility] [place] [address] [address] Performing Lab: [facility] [place] [facility] [address] [facility] [address] [place] [facility] [place] [facility] LIVER FUNCTION BILIRUBIN.T OTAL [MASS/VOLUM E] IN SERUM OR PLASMA 0.4 mg/dL 0.2 - 1.2 10/15 Specimen Type: SERUM No comment entered. Ordering Provider: LIAM MOORE Report Released Date/Time: Oct 02, 2023 11:31 AM Reporting Lab: [place] [facility] [place] [address] [address] Performing Lab: [facility] [place] [facility] [address] [facility] [address] [facility] [place] [facility] Vital Signs Combined list of inpatient and [...] [facility] [place] En[facility] [id number] 02/06 [facility] [place] En[facility] [id number] 07/07 [facility] [place] En[facility] [id number] 07/31 [facility] [place] En[facility] [id number] 08/15 [facility] [place] En[facility] [id number] 08/28 [facility] [place] En[facility] [id number] 09/03 [facility] [place] En[facility] [id number] 09/15 [facility] [place] En[facility] [id number] 09/15 [facility] OFFICE O/P NEW MOD 45 MIN [id number] Diagnos is: ICD-10- CM I25.10 Athscl heart disease [place] coronar y artery w/o ang pctGrupo Buckley 10/15 [facility] En[facility] [id number] 02/19 [facility] [place] En[facility] [id number] 03/12 [facility] En[facility] [id number] [place] 03/13 [facility] En[facility] [id number] 03/16 [facility] En[facility] [id number] [facility] HEARING AID EXAM BOTH EARS [id number] Diagnos is: ICD-10- CM H90.3 Sensori neural hearing loss, bilater GEOFF Bender 03/20 [facility] En[facility] [id number] 03/24 [facility] [place] HI 40 MIN [id number] Diagnos is: ICD-10- CM R06.00 Dyspnea , unspeci [employer] Skinner 04/13 [facility] En[facility] [id number] 04/14 [facility] [place] En[facility] [id number] 04/15 [facility] [place] En[facility] [id number] 04/15 [facility] [place] HEARING SERVICE [id number] Diagnos is: ICD-10- CM Z46.1 Encount er for fitting and adjustm ent of hearing aid SENIOREBONI 04/17 [facility] En[facility] [id number] 1.04/20 [facility] [place] En[facility] [id number] [facility] [place] En[facility] [id number] 04/28 [facility] NQHP OL DIG ASSMT&MGMT 5-10 [id number] Diagnos is: ICD-10- CM I10 Essenti al (primar y) hyperte [facility]11 [facility] En[facility] [id number] 05/12 [facility] [place] En[facility] [id number] [facility] [place] NQHP OL DIG ASSMT&MGMT 5-10 [id number] Diagnos is: ICD-10- CM E11.9 Type 2 diabete s mellitu s without complic ations [place], RISTY A 05/15 [facility] NQHP OL DIG ASSMT&MGMT 5-10 [id number] Diagnos is: ICD-10- CM I10 Essenti al (primar y) hyperte nsion SOKAVYA,CH RISTY A 05/26 [facility] [place] [place] [facility] Outpatient Encounter [id number] 05/27 [facility] MTMS BY PHARM ADDL 15 MIN [id number] Diagnos is: ICD-10- CM E11.9 Type 2 diabete s mellitu s without complic ations ADAIR APODACA A 05/27 [facility] [place] [place] [facility] Outpatient Encounter [id number] [facility] [place] MTMS BY PHARM LSW 15 MIN [id number] Diagnos is: ICD-10- CM Z51.81 [facility] er for therape utic drug level monitor ELIAS Stephens 06/03 [facility] ([id number]) NQHP OL DIG ASSMT&MGMT 5-10 [id number] 1GE. 36 Diagnos is: ICD-10- CM E11.9 Type 2 diabete s mellitu s without complic ations EMERALD LEE 06/09 [facility] (631GE) [facility] [place] [facility] Outpatient Encounter [id number] [facility] [place] MTMS BY PHARM ADDL 15 MIN [id number] Diagnos is: ICD-10- CM E11.9 Type 2 diabete s mellitu s without complic ations ADAIR APODACA A 06/10 [facility] [place] [facility] [place] MTMS BY PHARM LSW 15 MIN [id number] Diagnos is: ICD-10- CM Z51.81 [facility] for therape utic drug level monitor ELIAS Stephens LEONELA 06/16 [place] Social History Combined list of available smoking, tobacco, and other social history from Department of Defense and Veterans Affairs facilities. Social History Type Response Date Comment Sourc e Tobacco smoking status NHIS [facility]CO FORMER USER 08/16/2023 [place] [place] [facility] History of tobacco use WY-TOBACCO QUIT 15 YRS OR MORE 08/16/2023 [place] [place] [facility] Plan of Care List of future care activities from Department of Veterans Affairs facilities. Additional future care activities may be listed in the Assessment and Plan section. Date/Time Care Activity Care Activity Detail Facili ty 06/18/2024 AMBULATORY - REHAB MEDICINE AMBULATORY - REHAB MEDICINE [place] [place] [facility] 07/22/2024 AMBULATORY - MEDICINE AMBULATORY - MEDICI NE [place] [facility] [facility] 08/19/2024 AMBULATORY - MEDICINE AMBULATORY - MEDICI NE [place] [facility] [facility] 10/12/2024 AMBULATORY - MEDICINE AMBULATORY - MEDICI NE [place] [facility] [facility] 10/28/2024 AMBULATORY - NONE AMBULATORY - NONE [facility] [place] [facility] 06/10/2024 Consult Order COMMUNITY CARE-CARDIOLOGY Cons Gas Meter Mechanic's Choice [facility] [facility] 06/10/2024 Consult Order COMMUNITY CARE-P ULMONARY Cons Gas Meter Mechanic's Choice [place] [facility] [place] [facility]
[2024-06-17 14:25] LABS: MANUAL DIFF FLAG NO
[2024-06-17 14:34] LABS: Basophils Percent Auto 0.4 % (0-2); Eosinophils Absolute Auto 0.3 X10*3/uL (0.0-0.4); Eosinophils Percent Auto 3.6 % (0-4); Hematocrit 36.2 % (42.0-52.0); Hemoglobin 11.6 g/dl (14.0-18.0); Imm Gran Abs Auto 0.03 X10*3/uL (0.00-0.03); Imm Gran Pct Auto 0.4 % (0.0-0.4); Lymphocytes Absolute Auto 1.3 X10*3/uL (1.2-4.9); Lymphocytes Percent Auto 17.4 % (20-40); Mean Corpuscular Hemoglobin 27.8 pg (27.0-33.0); Mean Corpuscular Volume 86.6 fL (80.0-98.0); Mean Platelet Volume 10.3 fL (9.4-12.4); Monocytes Absolute Auto 0.9 X10*3/uL (0.1-1.2); Monocytes Percent Auto 11.6 % (2-11); Neutrophils Percent Auto 66.6 % (45-73); Platelet Count 212 X10*3/uL (160-400); Red Blood Count 4.18 X10*6/uL (4.60-5.80); Red Cell Distribution Width 13.9 % (11.0-16.0); White Blood Count 7.5 X10*3/uL (4.8-10.8)
[2024-06-18 22:43] LABS: Immunoglobulin E 16 kU/L (<OR=114)
[2024-06-24 23:18] LABS: Class Alternaria alternata 0; Class Aspergillus fumigatus 0; Class Bermuda Grass 0; Class Birch 0; Class Cat Dander 0; Class Cladosporium herbarum 0; Class Cockroach 0; Class Common Ragweed 0; Class Cottonwood 0; Class Derm. pterony 0; Class Dermatophagoides farinae 0; Class Dog Dander 0; Class Elm 0; Class Maple Box Elder 0; Class Mountain Cedar 0; Class Mouse Urine Protein 0; Class Mugwort 0; Class Oak 0; Class Penicillium crysogenum 0; Class Rough Pigweed 0; Class Sheep Sorrel 0; Class Sycamore 0; Class Timothy Grass 0; Class Walnut Tree 0; Class White Ash 0; Class White Mulberry 0; D001 IgE D pteronyssinus <0.10 kU/L; D002 - IgE D farinae <0.10 kU/L; E001 - IgE Cat Dander <0.10 kU/L; E005 - IgE Dog Dander <0.10 kU/L; E072-IgE Mouse Urine <0.10 kU/L; G002 IgE Bermuda Grass <0.10 kU/L; G006 - IgE Timothy Grass <0.10 kU/L; I006-IgE Cockroach, German <0.10 kU/L; Immunoglobulin E 16 kU/L (<OR=114); M001 IgE Penicillium chrysogen <0.10 kU/L; M002 - IgE Cladosporium herbar <0.10 kU/L; M003 - IgE Aspergillus fumigat <0.10 kU/L; M006 - IgE Alternaria alternat <0.10 kU/L; T001 IgE Maple/Box Elder <0.10 kU/L; T003 IgE Common Silver Birch <0.10 kU/L; T006 - IgE Cedar, Mountain <0.10 kU/L; T007 - IgE Oak, White <0.10 kU/L; T008 IgE Elm, American <0.10 kU/L; T010 - IgE Walnut <0.10 kU/L; T011 - IgE Maple Leaf Sycamore <0.10 kU/L; T014 - IgE Cottonwood <0.10 kU/L; T015 - IgE Ash, White <0.10 kU/L; T070 - IgE White Mulberry <0.10 kU/L; W001 - IgE Ragweed, Short <0.10 kU/L; W006 - IgE Mugwort <0.10 kU/L; W014 IgE Pigweed, Common <0.10 kU/L; W018 IgE Sheep Sorrel <0.10 kU/L
== END 2024-06-17 10:28 | disposition home or self-care (01) ==
LOC: HO.WFDLDS 10:27
PROVIDERS: Visit Provider Nurse Practitioner Family
DX: Z91.09 Other allergy status, other than to drugs and biological substances (principal); R05.9 Cough, unspecified; R06.09 Other forms of dyspnea
CPT/HCPCS: 36415; 82785; 85025; 86003; 99202

== ENCOUNTER 2024-08-04 13:16 | Outpatient (REF) | payer OTHER, SELFPAY ==
--- NOTE | ~2024-08-04 | XR_ITS ---
EXAMINATION: XR CHEST 2 VIEWS HISTORY: R05.9 - Cough, unspecified COMPARISON: Comparison is made with the prior examination dated 05/06/2023. FINDINGS: PA and lateral views of the chest are submitted. The lungs remain hyperinflated, consistent with COPD. There are mild increased interstitial markings without change. No new focal airspace opacity is seen. There is no pleural effusion, pneumothorax, or pulmonary vascular congestion. The heart is normal in size. The aorta is calcified. There is degenerative disc disease of the spine. XR/XR chest 2V IMPRESSION: COPD. No acute cardiopulmonary abnormality. Electronically signed by: Hiren Morales MD 08/05/2024 05:51 PM EDT RP
--- NOTE | 2024-08-04 13:50 | PFT_ITS ---
Flows: FEV1: 85 % of predicted at 2.34 L FVC: 81 % of predicted at 3.03 L FEV1/FVC: 77 % Bronchodilator response: Absent Volumes: Total lung capacity: 74 % of predicted at 5.22 L Residual volume: 84 % of predicted at 2.35 L Slow vital capacity: 72 % of predicted at 2.87 L Expiratory reserve volume: 35 % of predicted at 0.43 L Diffusion capacity: Normal Impression: Mild restrictive ventilatory defect with no bronchodilator response. Decreased expiratory reserve volume suggests extrathoracic restriction likely secondary to abdominal obesity. MTDD
[2024-08-04 14:39] VITALS: PULSE 83; O2SAT 96
--- OUTSIDE RECORDS SUMMARY | 2024-08-04 15:19 | XMS_ITS ---
Author Name [facility] Organization [facility] [place] Address [address] [place] [address] Care Team Providers Care Nut Steamer Name Role Phone ROME SAVAGE Primary Care Provider [facility] Insurance Providers: All historical and current Section [...] PART A Feb 06, 2005 PART A [id number] DEXTER MORAN PATIENT MEDICARE (WNR) MEDICARE (M) PART B Feb 06, 2005 PART B [id number] DEXTER MORAN PATIENT Selected Encounter This section includes the information on record at AL for the Encounter. Date/Time Encounter Type Encounter Description Reason Provider Source Jun 10, 2024 11:30 AM OFFICE O/P EST HI 40 MIN PRIMARY CARE/MEDICINE ICD-10-CM I48.91 Unspecified atrial fibrillation URVASHI SAVAGE Encounter Template Text not used by AL Assessments - Encounter Diagnoses This section includes the primary and secondary diagnoses documented for the Encounter. Date/Time Primary/Secondary Diagnosis Diagnosis Name Provider Source Jun 28, 2024 11:30 AM PRIMARY Unspecified atrial fibrillation SAVAGE,WILL RONAN Ponce [facility] [place] [facility] Jun 28, 2024 11:30 AM SECONDARY Athscl heart disease of [place] coronary artery w/o ang pctrs SAVAGE,WILL RONAN J [facility] [place] [facility] Jun 28, 2024 11:30 AM SECONDARY Chronic obstructive pulmonary disease, unspecified SAVAGE,WILL RONAN J [facility] [place] [facility] Plan of Treatment: Future Appointments (+ 6 months) and Future Tests (+/- 45 days) The Plan of Treatment section includes future care activities for the patient from all [place] treatmentfacilities. This section includes future appointments and future orders which are active, pending or scheduled. Future Appointments This section includes appointments that were scheduled to occur 6 months from the date of the Encounter, up to a maximum of 20 appointments. The data comes from all [place] treatment facilities. Appointment Date/Time Appointment Type Appointme nt Facility Name Jun 17, 2024 08:00 AM AMBULATORY - MEDICINE [facility] [place] [facility] Jun 18, 2024 01:00 PM AMBULATORY - REHAB MEDICIN E [facility] [place] [facility] Jul 09, 2024 08:00 AM AMBULATORY - REHAB MEDICIN E [facility] [place] [facility] Jul 22, 2024 11:30 AM AMBULATORY - MEDICINE [facility] [place] [facility] Jul 29, 2024 10:00 AM AMBULATORY - MEDICINE [facility] [place] [facility] August 14, 2024 12:00 PM AMBULATORY - MEDICINE [facility] [place] [facility] August 19, 2024 10:40 AM AMBULATORY - MEDICINE [facility] [place] [facility] August 20, 2024 08:00 AM AMBULATORY - MEDICINE [facility] [place] [facility] Oct 12, 2024 11:00 AM AMBULATORY - MEDICINE [facility] [place] [facility] Oct 28, 2024 04:00 PM AMBULATORY - NONE [facility] [place] [facility] Nov 25, 2024 09:30 AM AMBULATORY - MEDICINE [facility] [place] [facility] Active, Pending, and Scheduled Orders This section includes a listing of several types of active, pending, and scheduled orders, including clinic medications orders, diagnostic test orders, procedure orders and consult orders; where the start date of the order is 45 days before the date of the Encounter or 45 days after the date of theEncounter. The data comes from all [place] treatment facilities. Test Date/Time Test Type Test Details Facility Name Jun 10, 2024 01:02 PM Consult Order COMM[facility]ITY [facility]ARE-CARDIOLOGY Cons [facility] Jun 10, 2024 01:02 PM Consult Order COMMUNITY CARE-PULMONARY Cons [facility] Jul 16, 2024 09:13 AM Consult Order [facility] Commercial Internship's Choice [facility] Lab Results: +/- 30 days of the encounter This section includes the Chemistry and Hematology Lab Results on record with AL for the patient. Radiology Reports and Pathology Reports are provided separately, in subsequent sections. Lab Results This section contains the Chemistry/Hematology Results that were resulted 30 days before or 30 daysafter the date of the Encounter. Date/Time Source Result Type Result - Unit Interpretation Reference Range Specimen Type Comment May 20, 2024 01:32 PM [facility] CBC BLOOD Specimen Type: BLOOD No comment entered. Ordering Provider: ROME SAVAGE Report Released Date/Time: Mar 26, 2024 03:22 PM Reporting Lab: [facility] [address] [facility] [facility] [address] Performing Lab: [facility] [address] [facility] [facility] [address] WBC 6.58 10*3/uL 4.50-11.00 RBC 3.94 10*6/uL L 4.23-5.66 HGB 11.2 g/dL L 12.8-17 HCT 33.9 L 39.2-50.4 MCV 86.0 fL 82-99 MCHC 33.0 g/dL 30.8-35.1 PLT 226 10*3/uL 140-360 RDW-CV 14.2 12.0-16.0 MCH 28.4 pg 26.2-32.6 May 20, 2024 01:32 PM [facility] LIPID PANEL, NON FASTING SERUM Specimen Type: SERUM Comment: *UREA NITROGEN Not Performed: May 20, 2024@15:11 by [id number] *TIPPLE MECHANIC Reason: DUP *GLUCOSE Not Performed: May 20, 2024@15:11 by [id number] *TIPPLE MECHANIC Reason: DUP *SODIUM Not Performed: May 20, 2024@15:11 by [id number] *TIPPLE MECHANIC Reason: DUP *POTASSIUM Not Performed: May 20, 2024@15:11 by [id number] *TIPPLE MECHANIC Reason: DUP *CHLORIDE Not Performed: May 20, 2024@15:11 by [id number] *TIPPLE MECHANIC Reason: DUP *CO2 Not Performed: May 20, 2024@15:11 by [id number] *TIPPLE MECHANIC Reason: DUP *CREATININE (eGFR 2020) Not Performed: May 20, 2024@15:11 by [id number] *TIPPLE MECHANIC Reason: DUP Ordering Provider: ROME SAVAGE Report Released Date/Time: Mar 26, 2024 03:22 PM Reporting Lab: [facility] [address] [facility] [address] Performing Lab: [address] [address] CHOLESTEROL 141 mg/dL TRIGLYCERIDE 205 mg/dL H 0-150 LDL calculated 57 mg/dL 0-129 CHOL/HDL 3.3 HDL CHOLESTEROL 43 mg/dL 40-60 May 20, 2024 01:32 PM [facility] LIVER FUNCTION SERUM Specimen Type: SERUM Comment: *UREA NITROGEN Not Performed: May 20, 2024@15:11 by [id number] *TIPPLE MECHANIC Reason: DUP *GLUCOSE Not Performed: May 20, 2024@15:11 by [id number] *TIPPLE MECHANIC Reason: DUP *SODIUM Not Performed: May 20, 2024@15:11 by [id number] *TIPPLE MECHANIC Reason: DUP *POTASSIUM Not Performed: May 20, 2024@15:11 by [id number] *TIPPLE MECHANIC Reason: DUP *CHLORIDE Not Performed: May 20, 2024@15:11 by [id number] *TIPPLE MECHANIC Reason: DUP *CO2 Not Performed: May 20, 2024@15:11 by [id number] *TIPPLE MECHANIC Reason: DUP *CREATININE (eGFR 2020) Not Performed: May 20, 2024@15:11 by [id number] *TIPPLE MECHANIC Reason: DUP Ordering Provider: ROME SAVAGE Report Released Date/Time: Mar 26, 2024 03:22 PM Reporting Lab: [facility] [address] [facility] [facility] [address] Performing Lab: [facility] [address] [facility] [facility] [address] PROTEIN,TOTAL 6.7 g/dL 6.0-8.3 ALBUMIN 3.8 g/dL 3.5-5.0 ALKALINE PHOSPHATASE 83 U/L 40-150 AST 13 U/L 5-34 ALT 15 U/L BILIRUBIN, TOTAL 0.4 mg/dL 0.2-1.2 May 20, 2024 01:32 PM [facility] PT & INR (PROTIME) PLASMA Specimen Type: PLASM A No comment entered. Ordering Provider: ROME SAVAGE Report Released Date/Time: Mar 26, 2024 03:22 PM Reporting Lab: [facility] [address] [facility] [address] Performing Lab: [address] [address] INR 1.5 PROTIME 16.0 s H 10.0-13.1 May 20, 2024 01:32 PM [facility] HEMOGLOBIN A1C PANEL BLOOD Specimen Type: BLO OD Comment: Values obtained from A1C measurements can vary. For atypical A1C assays, a reported value of 7.0 could actually be between 6.72 and 7.28 if measured by a reference method. A reported value of 9.0 could actually be between 8.73 and 9.27. Ref: http://www.ngsp.org/CAPdata.asp Ordering Provider: ROME SAVAGE Report Released Date/Time: Mar 26, 2024 03:22 PM Reporting Lab: [facility] [address] [facility] [address] Performing Lab: [address] [address] HEMOGLOBIN A1C 8.6 H 4.0-5.6 May 20, 2024 01:32 PM [facility] BASIC METABOLIC PANEL (non-fasting) SERUM Spe cimen Type: SERUM No comment entered. Ordering Provider: ADAIR APODACA Report Released Date/Time: May 18, 2024 08:18 AM Reporting Lab: [address] [address] Performing Lab: [address] [address] UREA NITROGEN 17 mg/dL 7-25 GLUCOSE 158 mg/dL H 65-100 SODIUM 137 mmol/L 135-145 POTASSIUM 4.1 mmol/L 3.5-5.0 CHLORIDE 106 mmol/L 100-110 CO2 24 meq/L 20-30 CREATININE, Serum 0.83 mg/dL 0.50-1.40 eGFR(CKD-EPI 2020) 86 mL/min >60 May 20, 2024 01:32 PM [facility] MICROALBUMIN CREATININE RATIO PANEL URINE Spe cimen Type: URINE No comment entered. Ordering Provider: ADAIR APODACA Report Released Date/Time: May 18, 2024 08:18 AM Reporting [facility] [address] Performing Lab: [address] [address] MICROALBUMIN/CREATININE RATIO 19.1 mg/g 0-29.9 MICROALBUMIN,QUANTITATIVE 1.5 mg/dL RR U NAVAIL CREATININE URINE 78.41 mg/dL Vital Signs: All taken on the encounter date This section contains inpatient and outpatient Vital Signs collected on the date of the Encounter. Date/Time Temperature Pulse Blood Pressure Respiratory Rate SP02 Pain Height Weight Body Mass Index Source Jun 10, 2024 11:30 AM 98.1 76 140/80 20 99 8 67 219 34 [facility] Social History: Smoking Status (Most current) and Tobacco Use (All prior to encounter date) This section includes the most current, and the historical, smoking and tobacco- related health factors from the AL facility where the Encounter took place. Current Smoking Status This section includes the most current smoking, or tobacco-related health factor, from the AL facility where the Encounter took place. Date/Time Current Smoking Status Comment Kaley roberto August 16, 2023 11:14 AM VA-TOBACCO FORMER USER [facility] Tobacco Use History This section includes a history of the smoking, or tobacco-related health factors, that were collected on or before the date of the Encounter. The data comes from the AL facility where the Encounter took place. Date/Time Smoking Status/Tobacco Use Comment F actong August 16, 2023 11:14 AM AL-TOBACCO QUIT 15 YRS OR MORE [facility] Encounter Notes: All associated encounter notes This section contains the clinical notes associated to the Encounter. Date/Time Encounter Note(s) Provider Source Jun 10, 2024 11:30 AM PRIMARY CARE NURSE PRACTITIONER OUTPATIENT NOTE: LOCAL TITLE: NURSE PRACTITIONER OUTPATIENT NOTE STANDARD TITLE: PRIMARY CARE NURSE PRACTITIONER OUTPATIENT NOTE DATE OF NOTE: JUN 10, 2024@11:30 ENTRY DATE: JUN 28, 2024@11:24:38 AUTHOR: ROME SAVAGEIGNER: URGENCY: STATUS: COMPLETED Chief complaint: Patient is a 84 year old . HPI: Pleasant male [place] here with his son, post hospitalization. [facility] Admit: 05/01/24 D/C: 03/02/25 Hospital Course: 84-year-old [...] Recommends starting Eliquis. Discussed with cardiology Venus ALEXANDRE, who recommends continuing Plavix if bleeding risk [...] anticoagulation. Please consider obtaining echocardiogram as outpatient [place] reports feeling better since dc. Allergies: METFORMIN The following VA and Non-VA meds were reconciled with patient. The patient was educated on the use of the medications including indication and side effects. Active and Recently Outpatient Medications (excluding Supplies): Active Outpatient Medications Status 1) ALBUTEROL 90MCG (CFC-F) 200D ORAL INHL INHALE 2 PUFFS BY ACTIVE MOUTH EVERY 4 HOURS NEEDED Indication: FOR BRONCHOSPASM 2) APIXABAN 5MG TAB TAKE ONE TABLET BY MOUTH EVERY 12 HOURS ACTIVE Indication: FOR PREVENTION OF BLOOD CLOTS 3) ATORVASTATIN CALCIUM 80MG TAB TAKE ONE-HALF TABLET BY MOUTH ACTIVE ONCE DAILY Indication: FOR HIGH CHOLESTEROL 4) CLOPIDOGREL BISULFATE 75MG TAB TAKE ONE TABLET BY MOUTH ONCE ACTIVE DAILY Indication: TO PREVENT BLOOD CLOTS 5) FLUTICASONE PROP 50MCG 120D NASAL INHL INSTILL 1 SPRAY INTO ACTIVE EACH NOSTRIL TWICE DAILY Indication: FOR NASAL IRRITATION/INFLAMMATION 6) GLIPIZIDE 10MG TAB TAKE ONE TABLET BY MOUTH TWICE DAILY ACTIVE Indication: FOR TYPE 2 DIABETES MELLITUS 7) LEVETIRACETAM 500MG TAB TAKE ONE TABLET BY MOUTH TWICE DAILY ACTIVE Indication: FOR PARTIAL SEIZURES 8) METOPROLOL SUCCINATE 25MG SA TAB TAKE ONE [...] ACTIVE DAILY Indication: FOR MAJOR DEPRESSIVE DISORDER 12) SUCRALFATE 1GM TAB TAKE ONE TABLET BY MOUTH TWICE DAILY ACTIVE NEEDED Indication: FOR ULCER Review of Systems: Constitutional: (-)for Fevers, chills, weakness, nights sweats On examination: 98.1 F [36.7 C] (06/10/2024 11:30)140/80 (06/10/2024 11:30)76 (06/10/2024 11:30)20 (06/10/2024 11:30)8 (06/10/2024 11:30)BMI: 34.4219 lb [99.34 kg] (06/10/2024 11:30) [place] is alert and oriented X3 Eyes:No scleral icterus, lids normal, Pupils equal,round and reactive to light HEENT: External without scars, lesions or masses, TM's without erythema or perforations, Oropharynx without erythema or exudates or worrisome lesions Neck: supple without masses, trachea midline, ln [...] List is the source for the followin. Atrial fibrillation - on bb and eliquis, consult to cardiology. 2. COPD - Chronic Obstructive Pulmonary Disease ([facility] [id number]) - consult to pulm. Today I spent 40 minutes on some or all of the following: chart review, history, physical examination, treatment planning, education and counseling of the patient/family/critical care nurse specialist, placing orders, communicating with other health care providers, completing health and wellness screenings (see below) and documentation in the electronic health record. Follow up visit as scheduled. Medication Reconciliation: Outpatient: Has the patient been taking medications as documented in the EMLR? YES: The patient has been taking medications as documented in the EMLR. Essential Medication List for Review used to complete this medication reconciliation. INCLUDED IN THIS LIST: Alphabetical list of active outpatient prescriptions dispensed from this AL (local) and dispensed from another AL or DoD facility (remote) as well as inpatient orders [...] whether with a VA or non-VA provider. HTN Assess for Elevated BP>=140/90: Repeat blood pressure: 136/78 The patient's blood pressure is usually adequately controlled. No medication changes are indicated at this time. /yohana/ Rome Savage DNP, TUFTER OPERATOR-BC, CNL Primary Care Nurse Practitioner Signed: 06/28/2024 11:31 ROME SAVAGE [facility]
--- OUTSIDE RECORDS SUMMARY | 2024-08-04 15:19 | XMS_ITS | Encounter Summary ---
Author Name [facility] [place] Address [address] [place] [address] Care Team Providers Care Hr Representative Name Role Phone ELOINA MOORE [facility] Insurance Providers: All historical and current Section [...] PART A Feb 06, 2005 PART A [id number] DEXTER MORAN PATIENT MEDICARE (WNR) MEDICARE (M) PART B Feb 06, 2005 PART B [id number] DEXTER MORAN PATIENT Selected Encounter This section includes the information on record at [place] for the Encounter. Date/Time Encounter Type Encounter Description Reason Provider Source Apr 17, 2024 10:00 AM HEARING SERVICE AUDIOLOGY ICD-10-CM Z46.1 Encounter for fitting and adjustment of hearing aid ADRIAN VICENTE Encounter Template Text not used by [place] Assessments - Encounter Diagnoses This section includes the primary and secondary diagnoses documented for the Encounter. Date/Time Primary/Secondary Diagnosis Diagnosis Name Provider Source Apr 17, 2024 10:41 AM PRIMARY Encounter for fitting and adjustment of hearing aid ADRIAN VICENTE [place] [facility] [place] [facility] Apr 17, 2024 10:41 AM SECONDARY Sensorineural hearing loss, bilateral ADRIAN VICENTE [place] [facility] [place] [facility] Plan of Treatment: Future Appointments (+ 6 months) and Future Tests (+/- 45 days) The Plan of Treatment section includes future care activities for the patient from all [place] [facility]. This section includes future appointments and future orders which are active, pending or scheduled. Future Appointments This section includes appointments that were scheduled to occur 6 months from the date of the Encounter, up to a maximum of 20 appointments. The data comes from all [place] treatment facilities. Appointment Date/Time Appointment Type Appointme nt Facility Name May 27, 2024 01:30 PM AMBULATORY - MEDICINE [place] [facility] [place] [facility] Jun 10, 2024 11:30 AM AMBULATORY - MEDICINE [place] [facility] [facility] Jun 10, 2024 01:30 PM AMBULATORY - MEDICINE [place] [facility] [place] [facility] Jun 17, 2024 08:00 AM AMBULATORY - MEDICINE [place] [facility] [facility] Jun 18, 2024 01:00 PM AMBULATORY - REHAB MEDICIN E [place] [facility] [place] [facility] Jul 09, 2024 08:00 AM AMBULATORY - REHAB MEDICIN E [place] [facility] [place] [facility] Jul 22, 2024 11:30 AM AMBULATORY - MEDICINE [place] [facility] [place] [facility] Jul 29, 2024 10:00 AM AMBULATORY - MEDICINE [place] [facility] [facility] August 14, 2024 12:00 PM AMBULATORY - MEDICINE [place] [facility] [place] [facility] August 19, 2024 10:40 AM AMBULATORY - MEDICINE [place] [facility] [facility] August 20, 2024 08:00 AM AMBULATORY - MEDICINE [place] [facility] [facility] Oct 12, 2024 11:00 AM AMBULATORY - MEDICINE [place] [facility] [place] [facility] Active, Pending, and Scheduled Orders This section includes a listing of several types of active, pending, and scheduled orders, including clinic medications orders, diagnostic test orders, procedure orders and consult orders; where the start date of the order is 45 days before the date of the Encounter or 45 days after the date of theEncounter. The data comes from all [place] treatment facilities. Test Date/Time Test Type Test Details Facility Name Mar 12, 2024 02:31 PM Consult Order COMMUNITY CARE-SLEEP MEDICINE Cons Car Distributor's Choice [facility] Social History: Smoking Status (Most current) and Tobacco Use (All prior to encounter date) This section includes the most current, and the historical, smoking and tobacco- related health factors from the [place] facility where the Encounter took place. Current Smoking Status This section includes the most current smoking, or tobacco-related health factor, from the [place] facility where the Encounter took place. Date/Time Current Smoking Status Comment Facil ity August 16, 2023 11:14 AM [place]-TOBACCO FORMER USER [facility] Tobacco Use History This section includes a history of the smoking, or tobacco-related health factors, that were collected on or before the date of the Encounter. The data comes from the [place] facility where the Encounter took place. Date/Time Smoking Status/Tobacco Use Comment F acility August 16, 2023 11:14 AM [place]-TOBACCO QUIT 15 YRS OR MORE [facility] Encounter Notes: All associated encounter notes This section contains the clinical notes associated to the Encounter. Date/Time Encounter Note(s) Provider Source Jun 04, 2024 10:37 AM ADDENDUM: LOCAL TITLE: Addendum STANDARD TITLE: ADDENDUM DATE OF NOTE: JUN 04, 2024@10:37:03 ENTRY DATE: JUN 04, 2024@10:37:03 AUTHOR: SERJIO INFANTE EXP COSIGNER: URGENCY: STATUS: COMPLETED returned IOI-PEREZ Outcome Measure to the clinic [...] them. Taryn /yohana/ SERJIO INFANTE Audiology Health Rf Test Technician Signed: 06/04/2024 10:39 Receipt Acknowledged By: 06/18/2024 15:55 /es/ CHUCK CROCKETT [facility]-Ekaterina STAFF SENIOR SYSTEMS DEVELOPER --- Original Document --- 04/17/24 AUDIOLOGY CLINIC: Dx CODE: Z46.1- Encounter for Fitting/Programming Hearing Aid(s); H90.3- Sensorineural Hearing Loss, Bilateral APPOINTMENT TYPE: Hearing Aid Fitting SUBJECTIVE (S): The patient was seen for hearing aid fitting and issuance, accompanied by his son. He had previously been evaluated and found to exhibit significant hearing loss for which amplification was recommended. is a new hearing aid user. How does the patient best learn? Verbal instruction, demonstration Does the patient have any cultural and orthodox beliefs, emotional barriers, physical or cognitive limitations, and communication barriers which may impact his ability to learn? No Desire and motivation to learn? Good OBJECTIVE (O): Physical fit of hearing aids was good. Patient verified comfort. Verification of an appropriate acoustic response was obtained using Real Ear measurements (speech mapping) and NAL-NL2 targets. The patient reported good subjective benefit as well. Feedback supply chain logistics manager was run. Hearing aids were found to be meeting targets adequately and MPO was not exceeding estimated UCL. Settings stored in ROLDAN. ASSESSMENT (A): The following devices were issued: Make: JOHN Model: EDGE AI HS R Right Serial Number: [id number] Left Serial Number: [id number] Battery size: Rechargeable Warranty ends: 04/24/27 Trial Period ends: 09/21/24 Domes/Wax guards: Hear Clear Program(s): Automatic Button(s): Short press= Synced VC, R- Raise, L- Lower Long press= Power on/off Fitting Formula: NAL-NL2 Remote Programming: HAs are capable Bluetooth: Blackstock not interested Counseling was completed throughout todays [...] patient was informed of and signed/agreed to [place] policy on hearing aid issuance: Yes Users are responsible for the maintenance and security of their devices. Determination of need to replace a hearing aid is made by the [place] septic tank cleaner. Hearing aids will not be replaced in [...] to: P Response to Education: DUY PAREKH, PI Cortes Patient P Family F Significant Other SO Verbalizes Understanding VU Returns Demonstration RD Performs Independently PI Lacks Comprehension LC Refused Education RE Not Applicable NA /yohana/ CHUCK CROCKETT, [facility]-A STAFF SENIOR SYSTEMS DEVELOPER Signed: 04/17/2024 10:41 SERJIO INFANTE [place] [facility] [place] [facility] Apr 17, 2024 09:39 AM AUDIOLOGY E & M NOTE: LOCAL [...] hearing loss for which amplification was recommended. is a new hearing aid user. How does the patient best learn? Verbal instruction, demonstration Does the patient have any cultural and orthodox beliefs, emotional barriers, physical or cognitive limitations, and communication barriers which may impact his ability to learn? No Desire and motivation to learn? Good OBJECTIVE (O): Physical fit of hearing aids was good. Patient verified comfort. Verification of an appropriate acoustic response was obtained using Real Ear measurements (speech mapping) and NAL-NL2 targets. The patient reported good subjective benefit as well. Feedback supply chain logistics manager was run. Hearing aids were found to be meeting targets adequately and MPO was not exceeding estimated UCL. Settings stored in ROLDAN. ASSESSMENT (A): The following devices were issued: Make: JOHN Model: EDGE AI HS R Right Serial Number: [id number] Left Serial Number: [id number] Battery size: Rechargeable Warranty ends: 04/24/27 Trial Period ends: 09/21/24 Domes/Wax guards: Hear Clear Program(s): Automatic Button(s): Short press= Synced VC, R- Raise, L- Lower Long press= Power on/off Fitting Formula: NAL-NL2 Remote Programming: HAs are capable Bluetooth: Blackstock not interested Counseling was completed throughout todays [...] patient was informed of and signed/agreed to [place] policy on hearing aid issuance: Yes Users are responsible for the maintenance and security of their devices. Determination of need to replace a hearing aid is made by the [place] septic tank cleaner. Hearing aids will not be replaced in [...] LC Refused Education RE Not Applicable NA /yohana/ CHUCK CROCKETT, [facility]-A STAFF SENIOR SYSTEMS DEVELOPER Signed: 04/17/2024 10:41 06/04/2024 ADDENDUM STATUS: COMPLETED Blackstock returned IOI-PEREZ Outcome Measure to the clinic [...] also speaking softer while wearing them. Taryn INFANTE Audiology Health Rf Test Technician Signed: 06/04/2024 10:39 Receipt Acknowledged By: * AWAITING SIGNATURE * ADRIAN VICENTE NICOLE L [facility]
--- OUTSIDE RECORDS SUMMARY | 2024-08-04 15:19 | XMS_ITS | Encounter Summary ---
Author Name [facility] [place] Organization [place] Address [address] [place] [address] Care Team Providers Care Dental Detail Representative Name Role Phone ELOINA MOORE Primary Care Provider [facility] Insurance Providers: All historical and current [...] PART A Feb 06, 2005 PART A [id number] DEXTER MORAN PATIENT MEDICARE (WNR) MEDICARE (M) PART B Feb 06, 2005 PART B [id number] DEXTER MORAN PATIENT Selected Encounter This section includes the information on record at [place] for the Encounter. Date/Time Encounter Type Encounter [...] 08:45 AM PRIMARY Sensorineural hearing loss, bilateral KEARNEY,KIMBERL Y STANLEY [place] [facility] [place] [facility] Plan of Treatment: Future Appointments (+ 6 months) and Future Tests (+/- 45 days) The Plan of Treatment section includes future care activities for the patient from all [place] treatmentfacilities. This section includes future appointments and future orders which are active, pending or scheduled. Future Appointments This section includes appointments that were scheduled to occur 6 months from the date of the Encounter, up to a maximum of 20 appointments. The data comes from all [place] treatment facilities. Appointment Date/Time Appointment Type Appointme nt Facility Name Apr 13, 2024 10:30 AM AMBULATORY - MEDICINE [place] [facility] [place] [facility] Apr 17, 2024 10:00 AM AMBULATORY - REHAB MEDICIN E [place] [facility] [place] [facility] May 27, 2024 01:30 PM AMBULATORY - MEDICINE [place] [facility] [place] [facility] Jun 10, 2024 11:30 AM AMBULATORY - MEDICINE [place] [facility] [place] [facility] Jun 10, 2024 01:30 PM AMBULATORY - MEDICINE [place] [facility] [place] [facility] Jun 17, 2024 08:00 AM AMBULATORY - MEDICINE [place] [facility] [place] [facility] Jun 18, 2024 01:00 PM AMBULATORY - REHAB MEDICIN E [place] [facility] [place] [facility] Jul 09, 2024 08:00 AM AMBULATORY - REHAB MEDICIN E [place] [facility] [place] [facility] Jul 22, 2024 11:30 AM AMBULATORY - MEDICINE [place] [facility] [place] [facility] Jul 29, 2024 10:00 AM AMBULATORY - MEDICINE [place] [facility] [place] [facility] August 14, 2024 12:00 PM AMBULATORY - MEDICINE [place] [facility] [place] [facility] August 19, 2024 10:40 AM AMBULATORY - MEDICINE [place] [facility] [place] [facility] August 20, 2024 08:00 AM AMBULATORY - MEDICINE [place] C [facility] [place] [facility] Active, Pending, and Scheduled Orders This section includes a listing of several types of active, pending, and scheduled orders, including clinic medications orders, diagnostic test orders, procedure orders and consult orders; where the start date of the order is 45 days before the date of the Encounter or 45 days after the date of theEncounter. The data comes from all [place] treatment facilities. Test Date/Time Test Type Test Details Facility Name Mar 12, 2024 02:31 PM Consult Order COMMUNITY CARE-SLEEP MEDICINE Cons Gas Adjuster's Choice [facility] Social History: Smoking Status (Most current) and Tobacco Use (All prior to encounter date) This section includes the most current, and the historical, smoking and tobacco- related health factors from the [place] facility where the Encounter took place. Current Smoking Status This section includes the most current smoking, or tobacco-related health factor, from the [place] facility where the Encounter took place. Date/Time Current Smoking Status Comment Facil ity August 16, 2023 11:14 AM VA-TOBACCO FORMER USER [facility] Tobacco Use History This section includes a history of the smoking, or tobacco-related health factors, that were collected on or before the date of the Encounter. The data comes from the [place] facility where the Encounter took place. Date/Time Smoking Status/Tobacco Use Comment F acility August 16, 2023 11:14 AM [place]-TOBACCO QUIT 15 YRS OR MORE [facility] Encounter Notes: All associated encounter notes [...] Hearing Evaluation and Hearing Aid Selection BACKGROUND/HISTORY: [place] was seen 03/20/24 for an initial hearing evaluation and hearing aid selection appointment, accompanied by his daughter. [place] reports he recently was tested at [facility], but due to the [facility] of the [facility]. He has tried PSAPs before, but denies [...] and does not have a pacemaker. Nicolasa Edge AI HSs were selected and ordered in [facility]. Impressions were taken without incident and with [...] Applicable NA * /yohana/ CRUZ KEARNEY STAFF AUTOMOTIVE PARTS COUNTER ASSOCIATE Signed: 03/20/2024 08:46 Receipt Acknowledged By: 03/20/2024 08:49 /yohana/ TRISTAN CALDWELL LEAD TRANSFORMER SHOP SUPERVISOR 03/30/2024 ADDENDUM STATUS: COMPLETED Hearing aids received and certified, upcoming appointment scheduled on 04/17/2024. /yohana/ SERJIO INFANTE Audiology Health Paper Spooler Signed: 03/30/2024 15:16 CRUZ KEARNEY [facility] [place] [facility]
--- OUTSIDE RECORDS SUMMARY | 2024-08-04 15:19 | XMS_ITS ---
Author Name [facility] [place] Address [address] [place] [address] Care Team Providers Care Senior Clinical Data Manager Name Role Phone ELOINA MOORE Primary Care Provider [facility] Insurance Providers: All historical and current [...] PART A Feb 06, 2005 PART A [id number] DEXTER MORAN PATIENT MEDICARE (WNR) MEDICARE (M) PART B Feb 06, 2005 PART B [id number] DEXTER MORAN PATIENT Selected Encounter This section includes the information on record at [place] for the Encounter. Date/Time Encounter Type Encounter Description Reason Provider Source Jul 09, 2024 08:00 AM HEARING AID FITTING/CHECKIN G AUDIOLOGY ICD-10-CM Z46.1 Encounter for fitting and adjustment of hearing aid FADY SIMS Encounter Template Text not used by [place] Assessments - Encounter Diagnoses This section includes the primary and secondary diagnoses documented for the Encounter. Date/Time Primary/Secondary Diagnosis Diagnosis Name Provider Source Jul 09, 2024 08:19 AM PRIMARY Encounter for fitting and adjustment of hearing aid FADY SIMS [place] [facility] [place] [facility] Jul 09, 2024 08:19 AM SECONDARY Sensorineural hearing loss, bilateral FADY SIMS [place] [facility] [place] [facility] Plan of Treatment: Future Appointments (+ 6 months) and Future Tests (+/- 45 days) The Plan of Treatment section includes future care activities for the patient from all [place] [facility] This section includes future appointments and future orders which are active, pending or scheduled. Future Appointments This section includes appointments that were scheduled to occur 6 months from the date of the Encounter, up to a maximum of 20 appointments. The data comes from all [place] treatment [facility]. Appointment Date/Time Appointment Type Appointme nt Facility Name Jul 22, 2024 11:30 AM AMBULATORY - MEDICINE [place] [facility] [place] [facility] Jul 29, 2024 10:00 AM AMBULATORY - MEDICINE [place] [facility] [place] [facility] August 14, 2024 12:00 PM AMBULATORY - MEDICINE [place] [facility] [place] [facility] August 19, 2024 10:40 AM AMBULATORY - MEDICINE [place] [facility] [place] [facility] August 20, 2024 08:00 AM AMBULATORY - MEDICINE [place] [facility] [place] [facility] Oct 12, 2024 11:00 AM AMBULATORY - MEDICINE [place] [facility] [place] [facility] Oct 28, 2024 04:00 PM AMBULATORY - NONE [place] [facility] [place] [facility] Nov 25, 2024 09:30 AM AMBULATORY - MEDICINE [place] [facility] [place] [facility] Active, Pending, and Scheduled Orders This section includes a listing of several types of active, pending, and scheduled orders, including clinic medications orders, diagnostic test orders, procedure orders and consult orders; where the start date of the order is 45 days before the date of the Encounter or 45 days after the date of theEncounter. The data comes from all [place] treatment [facility]. Test Date/Time Test Type Test Details Facility Name Jun 10, 2024 01:02 PM Consult Order COMMUNITY CARE-CARDIOLOGY Cons Alberene Stone Setter's Choice [facility] Jun 10, 2024 01:02 PM Consult Order COMMUNITY CARE-PULMONARY Cons Alberene Stone [facility] Jul 16, 2024 09:13 AM Consult Order COMMUNITY CARE-NEUROLOGY Cons Alberene Stone [facility] Choice [facility] Aug 02, 2024 01:43 PM Consult Order COMMUNITY CARE-GEC NON-SKILLED HOME HEALTH AIDE Cons Alberene Stone Setter[facility] Choice [facility] Social History: Smoking Status (Most [...] 16, 2023 11:14 AM VA-TOBACCO FORMER USER [facility] Tobacco Use History This section includes a history of the smoking, or tobacco-related health factors, that were collected on or before the date of the Encounter. The data comes from the [place] facility where the Encounter took place. Date/Time Smoking Status/Tobacco Use Comment F acility August 16, 2023 11:14 AM [place]-TOBACCO QUIT 15 YRS OR MORE [facility] Encounter Notes: All associated encounter notes This section contains the clinical notes associated to the Encounter. Date/Time Encounter Note(s) Provider Source Jul 09, 2024 07:45 AM AUDIOLOGY E & M NO TE: [facility] TITLE: AUDIOLOGY CLINIC STANDARD TITLE: AUDIOLOGY E & M NOTE DATE OF NOTE: JUL 09, 2024@07:45 ENTRY DATE: JUL 09, 2024@07:45:43 AUTHOR: FADY SIMS COSIGNER: URGENCY: STATUS: COMPLETED [place] has a history of bilateral sensorineural hearing loss. He was seen on 07-09-24 for hearing aid follow up regarding pecan picker of his remade Nicolasa HS Rs. Vents were noted to be much wider than on the original set. Both were connected to pyco and settings were restored. A new feedback test was run and adjustments applied for feedback prevention. [place] noted improved sound quality, especially with his own voice. He will resume routine use and contact the clinic as needed. /yohana/ Lanette CRAFT, [facility]-A STAFF SNUFF BOX FINISHER Signed: 07/09/2024 08:23 [facility]
--- OUTSIDE RECORDS SUMMARY | 2024-08-04 15:19 | XMS_ITS | Encounter Summary ---
Author Name [facility] [place] Organization [place] Address [address] [place] [address] Care Team Providers Care Service Order Dispatcher Chief Name Role Phone ELOINA MOORE Primary [facility] Insurance Providers: All historical and current Section [...] PART A Feb 06, 2005 PART A [id number] DEXTER MORAN PATIENT MEDICARE (WNR) MEDICARE (M) PART B Feb 06, 2005 PART B [id number] DEXTER MORAN PATIENT Selected Encounter This section includes the information on record at [place] for the Encounter. 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 This section includes future appointments and future orders which are active, pending or scheduled. Future Appointments This section includes appointments that were scheduled to occur 6 months from the date of the Encounter, up to a maximum of 20 appointments. The data comes from all [place] treatment facilities. Appointment Date/Time Appointment Type Appointme nt Facility Name August 14, 2024 12:00 PM AMBULATORY - MEDICINE [place] [facility] [place] [facility] August 19, 2024 10:40 AM AMBULATORY - MEDICINE [place] [facility] [place] [facility] August 20, 2024 08:00 AM AMBULATORY - MEDICINE [place] [facility] [place] [facility] Oct 12, 2024 11:00 AM AMBULATORY - MEDICINE [place] [facility] [facility] Oct 28, 2024 04:00 PM AMBULATORY - NONE [place] [facility] [place] [facility] Nov 25, 2024 09:30 AM AM[facility]ULATORY - [facility] Active, Pending, and Scheduled Orders This [...] Date/Time Test Type Test Details Facility Name Jul 16, 2024 09:13 AM Consult Order COMMUNITY CARE-NEUROLOGY Cons Physicist [employer] [place] [facility] [place] [facility] Aug 02, 2024 01:43 PM Consult Order COMMUNITY CARE-GEC NON-SKILLED HOME HEALTH AIDE Cons Physicist [employer] Choice [facility] Vital Signs: All taken on the encounter date This section contains inpatient and outpatient Vital Signs collected on the date of the Encounter. Date/Time Temperature Pulse Blood Pressure Respiratory Rate SP02 Pain Height Weight Body Mass Index Source Jul 29, 2024 10:04 AM 97.4 69 184/73 18 97 [facility] [place] [facility] Social History: Smoking Status (Most current) and [...] 16, 2023 11:14 AM VA-TOBACCO FORMER USER [facility] Tobacco Use History This section includes a history of the smoking, or tobacco-related health factors, that were collected on or before the date of the Encounter. The data comes from the [place] facility where the Encounter took place. Date/Time Smoking Status/Tobacco Use Comment F acility August 16, 2023 11:14 AM [place]-TOBACCO QUIT 15 YRS OR MORE [facility] Encounter Notes: All associated encounter notes This section contains the clinical notes associated to the Encounter. Date/Time Encounter Note(s) Provider Source Jul 29, 2024 04:08 PM PODIATRY NOTE: LOCAL TITLE: PODIATRY PAVE FOOT EXAM STANDARD TITLE: PODIATRY NOTE DATE OF NOTE: JUL 29, 2024@16:08 ENTRY DATE: JUL 29, 2024@16:08:24 AUTHOR: AMAURY NEWTON: URGENCY: STATUS: COMPLETED PAVE FOOT EXAM A foot risk level was completed. The following risk level was identified for this patient: +POD RISK SCORE+ * --LEVEL 1 - (LOW RISK)* Normal sensation and circulation EITHER foot deformity OR minor foot infection No ulceration, nor history of ulceration, osteomyelitis, or amputation No Charcot joint disease with foot deformity No chronic kidney disease, or less than CKD 4 LEVEL 1 FOOT EDUCATION: 1. Advised patient not to walk barefoot. Instructed the patient to pay close attention to the style and fit of shoes. 2. Explained the importance of daily foot checks. Explained that loss of sensation leads to callouses. Callouses break down, which result in ulcers that may lead to gangrene and amputation. 3. Stressed the importance of daily foot hygiene. Warm (not hot) bathing of the feet, complete drying and thorough inspection for changes in the condition of the skin constitute daily foot care. Demonstrated how to do a thorough foot check. 4. Emphasized the use of clean, non-restrictive socks/stockings and well fitting shoes. 5. Stressed the importance of immediate follow-up of any foot injuries or ulcers. Explained that he/she should be non-weight bearing whenever there are lesions on the foot, to prevent cellular damage. Level of Understanding: Good /yohana/ AMAURY NEWTON DPM PODIATRY ATTENDING Signed: 07/29/2024 16:09 AMAURY NEWTON [place] [facility] [place] [facility] Jul 29, 2024 10:00 AM PODIATRY CONSULT: LOCAL TITLE: CONSULT REPORT/PODIATRY STANDARD TITLE: PODIATRY CONSULT DATE OF NOTE: JUL 29, 2024@10:00 ENTRY DATE: JUL 29, 2024@10:00:41 AUTHOR: AMAURY NEWTON EXP COSIGNER: URGENCY: STATUS: COMPLETED Podiatry High Risk Foot Encounter [facility] provider: Amaury Newton DPM Date: JUL 29, 2024 DEXTER MORAN MALE [id number] Feb 84 [employer] FROM Feb TO Feb Primary Care:ELOINA MOORE Consult encounter: Patient referred for routine footcare and diabetic foot exam and patient with diabetes type 2 history of remote left foot trauma vascular procedures on the right [stents] and nail dystrophy. And is anticoagulated on apixaban. Subjective: Patient no longer has claudication pain after vascular stents in right leg, no pain or discomfort or limitations with walking in the right or left leg at present time. Does have some arthritis in hip and knee. Denies any paresthesias or loss of sensation Diabetic and or PVD LE History: [X] diabetic [X] pvd [X] pvd interventions-followed in community [ ] neuropathy [ ] meds: [ ] wound active [ ] infection active [ ] wound history yes [ ] amputation hx [X] deformity -trauma to second third toes left foot lawnmower accident [ ] charcot [ ] surgical deformity intervention PMH list CPRS: Active problems - Computerized Problem List is the source for the followin. Atrial fibrillation 2. Long-term current use of anticoagulant 3. COPD - Chronic Obstructive Pulmonary Disease ([facility] [id number]) 4. Low back pain 5. Coronary artery disease 6. Gastro-esophageal reflux 7. Peripheral arterial occlusive disease 8. History of placement of stent in anterior descending branch of left coronary 9. Type 2 diabetes mellitus 10. Acute non-ST segment elevation myocardial infarction 11. Right sided weakness 12. Seizure 13. Hypertensive disorder 14. H/O: Stroke in last year 15. Obstructive sleep apnea syndrome Active Out Patient medications: Active Outpatient Medications (including Supplies): Active Outpatient Medications Status 1) ALBUTEROL 90MCG (CFC-F) 200D ORAL INHL INHALE 2 PUFFS BY ACTIVE MOUTH EVERY 4 HOURS NEEDED Indication: FOR BRONCHOSPASM 2) APIXABAN 5MG TAB TAKE ONE TABLET BY MOUTH EVERY 12 HOURS ACTIVE (S) Indication: FOR PREVENTION OF BLOOD CLOTS 3) ATORVASTATIN CALCIUM 80MG TAB TAKE ONE-HALF TABLET BY MOUTH ACTIVE (S) ONCE DAILY Indication: FOR HIGH CHOLESTEROL 4) CLOPIDOGREL BISULFATE 75MG TAB TAKE ONE TABLET BY MOUTH ONCE ACTIVE (S) DAILY Indication: TO PREVENT BLOOD CLOTS 5) FLUTICASONE PROP 50MCG 120D NASAL INHL INSTILL 1 SPRAY INTO ACTIVE EACH NOSTRIL TWICE DAILY Indication: FOR NASAL IRRITATION/INFLAMMATION 6) GLIPIZIDE 5MG TAB TAKE ONE TABLET BY MOUTH TWICE DAILY HOLD Indication: FOR TYPE 2 DIABETES MELLITUS 7) [...] FOR EXCESSIVE PRODUCTION OF STOMACH ACID 11) SEMAGLUTIDE 0.25MG/0.375ML INJ PEN 3ML INJECT 0.25MG ACTIVE SUBCUTANEOUSLY ONCE A WEEK FOR 4 WEEKS, AND INJECT 0.5MG ONCE A WEEK FOR 2 WEEKS Indication: FOR TYPE 2 DIABETES MELLITUS 12) SERTRALINE HCL 50MG TAB TAKE ONE-HALF TABLET BY MOUTH ONCE ACTIVE (S) DAILY Indication: FOR MAJOR DEPRESSIVE DISORDER 13) SUCRALFATE 1GM TAB TAKE ONE TABLET BY MOUTH TWICE DAILY ACTIVE NEEDED Indication: FOR ULCER Imaging reports: Lab Data: CREATININE-EGFR 05/20/24 13:32 0.83 10/16/23 15:53 0.90 No Data Available for EGFR 1 yr HEMOGLOBIN A1C TREND Collection DT Spec HGBA1c 05/20/2024 13:32 BLOOD 8.6 H 10/16/2023 15:53 BLOOD 8.0 H ALBUMIN Collection DT Specimen Test Name Result Units Ref Range 05/20/2024 13:32 SERUM !! ALBUMIN 3.8 g/dL 3.5 - 5.0 !! Indicates COMMENTS AVAILABLE...Refer to Interim Lab Report. BMI:BMI: 34.4 PE:General: Obese 84-year-old male awake alert oriented x 3 neatly dressed pleasant cooperative. Good hygiene, no apparent distress breathing on room air speaking full sentences.\ Pulses are nonpalpable bilateral 1+ ankle foot edema on the right Trace ankle edema on the left No venous stasis or lymphatic disease bilaterally Doppler exam reveals biphasic PT bilaterally biphasic AT right absent AT left Monophasic DP bilateral Turgor and texture grossly normal No pedal ankle or leg care present Structural exam unremarkable except for evidence of surgery skin scarring over area second and third toes left foot, slightly more webbed than the remainder into the right side. Interdigital spaces otherwise are stable No hammertoe hallux valgus or varus deformities in the forefoot No significant pes cavus pes planus bilateral Major joints of ankle subtalar midtarsal and metatarsophalangeal joints all with adequate pain-free range of motion Integument: Including the above all nails are dystrophic somewhat incurvated but presently with no sign of infectious ingrowth or inflammation. No calluses or high-pressure areas Webs clear Sensation to monofilament 10 g 10 out of 10 sites perceived normally Normal muscle strength for dorsiflexion plantarflexion inversion eversion bilateral PAVE: 1-mild PVD anticoagulation nail dystrophy Absent significant deformity neuropathy Impression: -Overall low risk foot exam -Nail dystrophy Plan: -Diabetic foot exam complete -Debrided all nails left and right 1 through 5 without incident using sterile instrumentation -70% isopropyl alcohol applied post procedure for antisepsis -Footwear inspected appropriate and stable -Order white diabetic socks for patient -Recommended follow-up quarterly -PAVE reminder completed -Diabetic foot education given Recall: 4 months Return sooner if any clinical signs of infection such as redness, swelling drainage fever chills nausea , or go to nearest hospital emergency / urgent care for evaluation. -As part of the service the pertinent primary care, specialty care and urgent care notes have been reviewed as well as the patient's medication list, problem list, and current imaging as well as past imaging, laboratory data and other pertinent contributory consults. -All new and discontinued medications have been discussed in detail with the patient and or caregiver, including indications for additions and deletions, as well as possible side effects, interactions as foreseen, and risk of not taking as prescribed If applicable, the patient was advised clearly on application of wound care agents how to apply and when to apply. The patient was able to recitethis information back to the prescriber with good understanding and agreed to the plan of care as indicated above. -Plan of care discuss with the patient and or caregiver, including medical decision making which includes discussion of abnormal lab results, imaging and other diagnostic modalities as well as results of the physical exam and makeup sales consultant opinions and recommendations as sought. Alternatives to surgery or outlined care above as appropriate have also been discussed. -The patient/ caregiver has displayed good understanding of above and with no further questions at this time. Patient is aware of next appointment and agrees to follow-up interval. Patient agrees to seek sooner follow up if any irregular events occur in between such as cardinal signs of infection, increased pain or deformity. -The on this visit was given information [employer] service and encouraged to enroll if not already having done so. /yohana/ AMAURY NEWTON DPM PODIATRY ATTENDING Signed: 07/29/2024 16:07 AMAURY NEWTON [facility]
--- OUTSIDE RECORDS SUMMARY | 2024-08-04 15:19 | XMS_ITS ---
Author Name [facility] [place] Organization [place] Address [address] [place] [address] Care Team Providers Care Intake Counselor Name Role Phone ELOINA MOORE [facility] Insurance Providers: All historical and current [...] PART A Feb 06, 2005 PART A [id number] DEXTER MORAN PATIENT MEDICARE (WNR) MEDICARE (M) PART B Feb 06, 2005 PART B [id number] DEXTER MORAN PATIENT Selected Encounter This section includes the information on record at [place] for the Encounter. Date/Time Encounter Type Encounter Description Reason Provider Source Jul 22, 2024 11:30 AM MTMS BY PHARM ADDL 15 MIN CLINICAL PHARMACY ICD-10-CM E11.9 Type 2 diabetes mellitus without complications ADAIR APODACA Encounter Template Text not used by [place] Assessments - Encounter Diagnoses This section includes the primary and secondary diagnoses documented for the Encounter. Date/Time Primary/Secondary Diagnosis Diagnosis Name Provider Source Jul 23, 2024 08:47 AM PRIMARY Type 2 diabetes mellitus without complications [facility]ACA [facility] Jul 23, 2024 08:47 AM SECONDARY [facility] [place] coronary artery w/o ang pctrs ADAIR APODACA [facility] Plan of Treatment: Future Appointments (+ 6 months) and Future Tests (+/- 45 days) The Plan of Treatment section includes future care activities for the patient from all [place] [facility]. This section includes future appointments and future orders which are active, pending or scheduled. Future Appointments This section includes appointments that were scheduled to occur 6 months from the date of the Encounter, up to a maximum of 20 appointments. The data comes from all [facility]. Appointment Date/Time Appointment Type Appointme nt Facility Name Jul 29, 2024 10:00 AM AMBULATORY - MEDICINE [facility] [place] [facility] August 14, 2024 12:00 PM AMBULATORY - MEDICINE [facility] [place] [facility] August 19, 2024 10:40 AM AMBULATORY - MEDICINE [facility] [place] [place] [facility] August 20, 2024 08:00 AM AMBULATORY - MEDICINE [place] C [facility] [place] [facility] Oct 12, 2024 11:00 AM AMBULATORY - MEDICINE [facility] [place] [facility] Oct 28, 2024 04:00 PM AMBULATORY - NONE [place] [facility] [place] [facility] Nov 25, 2024 09:30 AM AMBULATORY - MEDICINE [facility] Active, Pending, and [...] of theEncounter. The data comes from all [facility]. Test Date/Time Test Type Test Details Facility Name Jun 10, 2024 01:02 PM Consult Order COMMUNITY CARE-CARDIOLOGY Cons Range Conservationist's Choice [facility] Jun 10, 2024 01:02 PM Consult Order COMMUNITY CARE-PULMONARY Cons Range Conservationist's Choice [facility] Jul 16, 2024 09:13 AM Consult Order COMMUNITY CARE-NEUROLOGY Cons Range Conservationist's Choice [facility] Aug 02, 2024 01:43 PM Consult Order COMMUNITY CARE-GEC NON-SKILLED HOME HEALTH AIDE Cons Range Conservationist's Choice [facility] Social History: Smoking Status (Most current) and Tobacco Use (All prior to encounter date) This section includes the most current, and the historical, smoking and tobacco- related health factors from the [place] facility where the Encounter took place. Current Smoking Status This section includes the most current smoking, or tobacco-related health factor, from the [place] facility where the Encounter took place. Date/Time Current Smoking Status Comment Facil ity August 16, 2023 11:14 AM VA-TOBACCO FORMER USER [facility] Tobacco Use History This section includes a history of the smoking, or tobacco-related health factors, that were collected on or before the date of the Encounter. The data comes from the [place] facility where the Encounter took place. Date/Time Smoking Status/Tobacco Use Comment F acility August 16, 2023 11:14 AM [place]-TOBACCO QUIT 15 YRS OR MORE [facility] Encounter Notes: All associated encounter notes This section contains the clinical notes associated to the Encounter. Date/Time Encounter Note(s) Provider Source Jul 22, 2024 11:25 AM PHARMACY OUTPATIEN T NOTE: LOCAL TITLE: PHARMACY CLINIC NOTE STANDARD TITLE: PHARMACY OUTPATIENT NOTE DATE OF NOTE: JUL 22, 2024@11:25 ENTRY DATE: JUL 22, 2024@11:25:53 AUTHOR: ADAIR APODACA COSIGNER: URGENCY: STATUS: COMPLETED JAIDA JOSEFINA MORAN, 84 yo WHITE MALE, presents for [id number] for follow up visit for diabetes medication management. Pt was last seen in office on 06/10/24 in which consult for semaglutide was approved, but not intiated as eye exam had not been received. Today, pt presents with his son. We reviewed that CPP needs to review eye exam prior to dispensing GLP1a to esnure pt does not have DR or ME. We reviewed home BG numbers which were hard to distinguish as glucometer (Prodigy) was the incorrect date and time. CPP changed date and time on glucometer for pt. Called hoop puncher again and requested notes. Of note daughter, Taryn is contact which will be helping him admin medications - Taryn [phone] Current diabetes medications: - glipizide 10 mg BID - takes 10 to 15 mins before a meal Previous diabetes medications: - metformin diarrhea Medication Adherence: - sometimes forgets Diet Patterns: patient eats on avg. 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 SMBG assessment: did not bring glucometer HYPOGLYCEMIC [...] - Most recent visit to Optometry: in [place] Reviewed eye exam 07/06/24 no Y[facility] W[facility]ER OU, no DME OU Plan: - DM Medication management - DECREASE - glipizide 5 mg BID - recommended 30 mins prior to meals - INITIATE - semaglutide 0.25 mg weekly x 4 weeks - Reviewed injection procress, ADRs and storage of medication - Would defer from SGLT2i based on ADR, age and risk of dehydration, and hypotension - Continue to SMBG - MON FBG. SAT before lunch, SAT before bed - Monitor for s/sx hypoglycemia and contact clinic if BG consistently <70mg/dL - Reviewed 15-15 rule and provided handout - Healthy dietary and lifestyle modifications encouraged - Repeat A1c: TBD based on tx change EDUCATION -A shared decision-making approach was used in the development of this plan, involving the Melvin, clinician, and any caregivers present. The Melvin was provided the opportunity express questions or concerns, and the plan was adjusted as needed to address these concerns. -Reviewed with any new medications, changes to the medication list, education, and plan from today's visit. Patient (and/or caregiver) verbalized understanding of the plan, including possible known risks and benefits, and had no additional questions. RTC:08/14/24 @1200 Time Spent: 30 mins PBM PharmD Pharmacotherapy Rem V12: PHARMACIST INTERVENTIONS: TYPE 2 DIABETES MELLITUS Medication Intervention(s) Adjust dose or frequency of current medication due to other reason Initiate new medication /yohana/ ADAIR APODACA PHARMD,BCPS CLINICAL PHARMACY PRACTITIONER Signed: 07/23/2024 08:48 ADAIR APODACA [facility]
--- OUTSIDE RECORDS SUMMARY | 2024-08-04 15:19 | XMS_ITS | Encounter Summary ---
Author Name [place] Organization [place] Address [address] [place] [address] Care Team Providers Care Customs Port Director Name Role Phone ELOINA SAVAGE [facility] Insurance Providers: All historical and [...] PART A Feb 06, 2005 PART A [id number] DEXTER MORAN PATIENT MEDICARE (WNR) MEDICARE (M) PART B Feb 06, 2005 PART B [id number] DEXTER MORAN PATIENT Selected Encounter This section includes the information on record at [place] for the Encounter. Date/Time Encounter Type Encounter Description Reason Provider Source Oct 16, 2023 03:00 PM OFFICE O/P NEW MOD 45 MIN PRIMARY CARE/MEDICINE ICD-10-CM I25.10 [place] heart disease [place] coronary artery w/o ang pctrs RHONDA SAVAGE AM Encounter Template Text not used by [place] Assessments - Encounter Diagnoses This section includes the primary and secondary diagnoses documented for the Encounter. Date/Time Primary/Secondary Diagnosis Diagnosis Name Provider Source Jan 15, 2024 03:51 PM PRIMARY [place] heart [place] coronary artery w/o ang pctrs [facility] Jan 15, 2024 03:51 PM SECONDARY Disorder of arteries and arterioles, unspecified [facility] Jan 15, 2024 03:51 PM SECONDARY Gastro-esophageal reflux disease without esophagitis SAVAGE,WILL [facility] Jan 15, 2024 03:51 PM SECONDARY Hemiplegia, unspecified affecting unspecified side SAVAGE,WILL [facility] Jan 15, 2024 03:51 PM SECONDARY Type 2 diabetes mellitus without complications SAVAGE,WILL [facility] Jan 15, 2024 03:51 PM SECONDARY Unspecified convulsions SAVAGE,WILL [facility] Plan of Treatment: Future Appointments (+ 6 months) and Future Tests (+/- 45 days) The Plan of Treatment section includes future care activities for the patient from all [facility]. This section includes future appointments and future orders which are active, pending or scheduled. Future Appointments This section includes appointments that were scheduled to occur 6 months from the date of the Encounter, up to a maximum of 20 appointments. The data comes from all [place] treatment facilities. Appointment Date/Time Appointment Type Appointme nt Facility Name Feb 20, 2024 11:30 AM AMBULATORY - MEDICINE [facility] Mar 13, 2024 08:00 AM AMBULATORY - MEDICINE [facility] [place] [facility] Mar 20, 2024 08:00 AM AMBULATORY - REHAB MEDICIN E [place] [facility] Apr 13, 2024 10:30 AM AMBULATORY - MEDICINE [facility] [place] [facility] Apr 17, 2024 10:00 AM [facility] Lab Results: +/- 30 days of the encounter This section includes the Chemistry and Hematology Lab Results on record with [place] for the patient. Radiology Reports and Pathology Reports are provided separately, in subsequent sections. Lab Results This section contains the Chemistry/Hematology Results that were resulted 30 days before or 30 daysafter the date of the Encounter. Date/Time Source Result Type Result - Unit Interpretation Reference Range Specimen Type Comment Oct 16, 2023 03:53 PM [facility] BASIC METABOLIC PANEL (non-fasting) SERUM Spe cimen Type: SERUM No comment entered. Ordering Provider: PRESTON SAVAGE Report Released Date/Time: Oct 02, 2023 11:31 AM Reporting Lab: [address] [address] Performing Lab: [address] [address] UREA NITROGEN 25 mg/dL 7-25 GLUCOSE 121 mg/dL H 65-100 SODIUM 135 mmol/L 135-145 POTASSIUM 4.1 mmol/L 3.5-5.0 CHLORIDE 104 mmol/L 100-110 CO2 21 meq/L 20-30 CREATININE, Serum 0.90 mg/dL 0.50-1.40 eGFR(CKD-EPI 2020) 85 mL/min >60 Oct 16, 2023 03:53 PM [facility] LIPID PANEL, NON FASTING SERUM Specimen Type: SERUM No comment entered. Ordering Provider: ELOINA SAVAGE Report Released Date/Time: Oct 02, 2023 11:31 AM Reporting Lab: [address] [address] Performing Lab: [address] [address] CHOLESTEROL 163 mg/dL TRIGLYCERIDE 148 mg/dL 0-150 LDL calculated 86 mg/dL 0-129 CHOL/HDL 3.5 HDL CHOLESTEROL 47 mg/dL 40-60 Oct 16, 2023 03:53 PM [facility] LIVER FUNCTION SERUM Specimen Type: SERUM No comment entered. Ordering Provider: ELOINA SAVAGE Report Released Date/Time: Oct 02, 2023 11:31 AM Reporting Lab: [address] [place] [address] Performing Lab: [facility] [address] [facility] [address] PROTEIN,TOTAL 6.6 g/dL 6.0-8.3 ALBUMIN 3.7 g/dL 3.5-5.0 ALKALINE PHOSPHATASE 86 U/L 40-150 AST 17 U/L 5-34 ALT 21 U/L BILIRUBIN, TOTAL 0.4 mg/dL 0.2-1.2 Oct 16, 2023 03:53 PM [facility] HEMOGLOBIN A1C PANEL BLOOD Specimen Type: BLO OD Comment: Values obtained from A1C measurements can vary. For atypical A1C assays, a reported value of 7.0 could actually be between 6.72 and 7.28 if measured by a reference method. A reported value of 9.0 could actually be between 8.73 and 9.27. Ref: http://www.ngsp.org/CAPdata.asp Ordering Provider: ELOINA SAVAGE Report Released Date/Time: Oct 02, 2023 11:31 AM Reporting Lab: [facility] [address] [facility] [address] Performing Lab: [address] [address] HEMOGLOBIN A1C 8.0 H 4.0-5.6 Oct 16, 2023 03:53 PM [facility] MICROALBUMIN CREATININE RATIO PANEL URINE Spe cimen Type: URINE No comment entered. Ordering Provider: ELOINA SAVAGE Report Released Date/Time: Oct 02, 2023 11:31 AM Reporting Lab: [facility] [address] [facility] [address] Performing Lab: [address] [address] MICROALBUMIN/CREATININE RATIO 8.3 mg/g 0 -29.9 MICROALBUMIN,QUANTITATIVE 0.8 mg/dL RR U NAVAIL CREATININE URINE 96.62 mg/dL Oct 16, 2023 03:53 PM [facility] URINALYSIS CLEAN CATCH URINE Specimen Type: U RINE Comment: If Glucose = >500 and Ketones are positive, please alert the Physician. Ordering Provider: ELOINA SAVAGE Report Released Date/Time: Oct 02, 2023 11:31 AM Reporting Lab: [address] [address] Performing Lab: [address] [address] UA COLOR Light-Yellow Yellow UA APPEARANCE Clear Clear UA GLUCOSE NEGATIVE mg/dL Negative UA KETONES NEGATIVE mg/dL Negative UA BLOOD NEGATIVE mg/dL Negative UA PROTEIN NEGATIVE mg/dL Negative UA NITRITE NEGATIVE mg/dL Negative UA BILIRUBIN NEGATIVE mg/dL Negative UA SPECIFIC GRAVITY 1.024 H 1.016-1.022 UA pH 5.5 5.0-9.0 UA UROBILINOGEN <2.0 mg/dL <2.0 UA LEUKOCYTE NEGATIVE Negative Oct 16, 2023 03:53 PM [facility] CBC BLOOD Specimen Type: BLOOD No comment entered. Ordering Provider: ELOINA SAVAGE Report Released Date/Time: Oct 02, 2023 11:31 AM Reporting Lab: [address] [address] Performing Lab: [address] [address] WBC 7.00 10*3/uL 4.50-11.00 RBC 4.11 10*6/uL [...] 120/62 16 97 9 67 212.6 33 [facility] Social History: Smoking Status (Most current) and Tobacco Use (All prior to encounter date) This section includes the most current, and the historical, smoking and tobacco- related health factors from the [place] facility where the Encounter took place. Current Smoking Status This section includes the most current smoking, or tobacco-related health factor, from the [place] facility where the Encounter took place. Date/Time Current Smoking Status Comment Kaley ity August 16, 2023 11:14 AM [place]-TOBACCO FORMER USER [facility] Tobacco Use History This section includes a history of the smoking, or tobacco-related health factors, that were collected on or before the date of the Encounter. The data comes from the [place] facility where the Encounter took place. Date/Time Smoking Status/Tobacco Use Comment F actong August 16, 2023 11:14 AM [place]-TOBACCO QUIT 15 YRS OR MORE [facility] Encounter Notes: All associated encounter notes This section contains the clinical notes associated to the Encounter. Date/Time Encounter Note(s) Provider Source Oct 16, 2023 03:38 PM PRIMARY CARE NURSE PRACTITIONER OUTPATIENT NOTE: LOCAL TITLE: NURSE PRACTITIONER OUTPATIENT NOTE STANDARD TITLE: PRIMARY CARE NURSE PRACTITIONER OUTPATIENT NOTE DATE OF NOTE: OCT 16, 2023@15:38 ENTRY DATE: OCT 16, 2023@15:38:23 AUTHOR: ELOINA SAVAGEIGNER: URGENCY: STATUS: COMPLETED Chief complaint: Patient is a 83 year old . HPI: seeking to est care, assist with medications. [facility] Admit: 08/01/23 D/C: 08/02/23 Hospital Course: Patient [...] 15:08)BMI: 33.4212.6 lb [96.43 kg] (10/16/2023 15:08) is alert and oriented X3 Cardiovasc: 2plus [...] of active outpatient prescriptions dispensed from this [place] (local) and dispensed from another [place] or [facility] facility (remote) as well as inpatient orders [...] with a VA or non-VA provider. /yohana/ Eloina Savage DNP, COIL SPRING ASSEMBLER-BC, CNL Primary Care Nurse Practitioner Signed: 10/25/2023 10:47 ELOINA SAVAGE [facility] Oct 16, 2023 03:10 PM PREVENTIVE MEDICINE NURSING NOTE: LOCAL TITLE: CLINICAL REMINDERS/NURSING STANDARD TITLE: PREVENTIVE MEDICINE NURSING NOTE DATE OF NOTE: OCT 16, 2023@15:10 ENTRY DATE: OCT 16, 2023@15:10:49 AUTHOR: JORDY HALLIGNSHARON: URGENCY: STATUS: COMPLETED Falls & Incontinence Screen: Falls Screen: During the past 12 months, did the patient report any falls? 4. No falls within the past year. Incontinence Screen No incontinence. /yohana/ JORDY HALL LPN Signed: 10/16/2023 15:11 JORDY HALL [facility]
--- OUTSIDE RECORDS SUMMARY | 2024-08-04 15:19 | XMS_ITS ---
Author Name [facility] [place] Organization [place] Address [address] [place] [address] Care Team Providers Care Final Installer Inspector Name Role Phone ELOINA MOORE Primary Care Provider [facility] Insurance Providers: All historical and current Section [...] PART A Feb 06, 2005 PART A [id number] DEXTER MORAN PATIENT MEDICARE (WNR) MEDICARE (M) PART B Feb 06, 2005 PART B [id number] DEXTER MORAN PATIENT Selected Encounter This section includes the information on record at [place] for the Encounter. Date/Time Encounter Type Encounter Description Reason Provider Source May 27, 2024 01:30 PM MTMS BY PHARM ADDL 15 MIN CLINICAL PHARMACY ICD-10-CM E11.9 Type 2 diabetes mellitus without complications ADAIR APODACA Encounter Template Text not used by [place] Assessments - Encounter Diagnoses This section includes the primary and secondary diagnoses documented for the Encounter. Date/Time Primary/Secondary Diagnosis Diagnosis Name Provider Source May 28, 2024 10:14 AM PRIMARY Type 2 diabetes mellitus without complications ADAIR APODACA [place] [facility] Plan of Treatment: Future Appointments (+ 6 months) and Future Tests (+/- 45 days) The Plan of Treatment section includes future care activities for the patient from [facility] [place] [facility]. This section includes future appointments [...] - MEDICINE [place] [facility] Jun 10, 2024 01:30 PM AMBULATORY - MEDICINE [place] [facility] Jun 17, 2024 08:00 AM AMBULATORY - MEDICINE [place] [facility] Jun 18, 2024 01:00 PM AMBULATORY - REHAB MEDICIN E [place] [facility] Jul 09, 2024 08:00 AM AMBULATORY - REHAB MEDICIN E [place] [facility] Jul 22, 2024 11:30 AM AMBULATORY - MEDICINE [place] C [place] [facility] Jul 29, 2024 10:00 AM AMBULATORY - MEDICINE [place] C [place] [facility] August 14, 2024 12:00 PM AMBULATORY - MEDICINE [place] [facility] August 19, 2024 10:40 AM AMBULATORY - MEDICINE [place] C [place] [facility] August 20, 2024 08:00 AM AMBULATORY - MEDICINE [place] C [place] [facility] Oct 12, 2024 11:00 AM AMBULATORY - MEDICINE [place] C [place] [facility] Oct 28, 2024 04:00 PM AMBULATORY - NONE [place] [facility] Active, Pending, and Scheduled Orders This section [...] 01:02 PM Consult Order COMMUNITY CARE-CARDIOLOGY Cons Neurologist's Choice [facility] Jun 10, 2024 01:02 PM Consult Order COMMUNITY CARE-PULMONARY Cons Neurologist's Choice [facility] Lab Results: +/- 30 days of the encounter This section includes the Chemistry and Hematology Lab Results on record with [place] for the patient. Radiology Reports and Pathology Reports are provided separately, in subsequent sections. Lab Results This section contains the Chemistry/Hematology Results that were resulted 30 days before or 30 daysafter the date of the Encounter. Date/Time Source Result Type Result - Unit Interpretation Reference Range Specimen Type Comment May 20, 2024 01:32 PM [facility] CBC BLOOD Specimen Type: BLOOD No comment entered. Ordering Provider: ELOINA MOORE Report Released Date/Time: Mar 26, 2024 03:22 PM Reporting Lab: [facility] [address] [facility] [address] Performing Lab: [facility] [address] [facility] [address] WBC 6.58 10*3/uL 4.50-11.00 RBC 3.94 10*6/uL L 4.23-5.66 HGB 11.2 g/dL L 12.8-17 HCT 33.9 L 39.2-50.4 MCV 86.0 fL 82-99 MCHC 33.0 g/dL 30.8-35.1 PLT 226 10*3/uL 140-360 RDW-CV 14.2 12.0-16.0 MCH 28.4 pg 26.2-32.6 May 20, 2024 01:32 PM [facility] LIPID PANEL, NON FASTING SERUM Specimen Type: SERUM Comment: *UREA NITROGEN Not Performed: May 20, 2024@15:11 by [id number] *SHEET METAL ASSEMBLER Reason: DUP *GLUCOSE Not Performed: May 20, 2024@15:11 by [id number] *SHEET METAL ASSEMBLER Reason: DUP *SODIUM Not Performed: May 20, 2024@15:11 by [id number] *SHEET METAL ASSEMBLER Reason: DUP *POTASSIUM Not Performed: May 20, 2024@15:11 by [id number] *SHEET METAL ASSEMBLER Reason: DUP *CHLORIDE Not Performed: May 20, 2024@15:11 by [id number] *SHEET METAL ASSEMBLER Reason: DUP *CO2 Not Performed: May 20, 2024@15:11 by [id number] *SHEET METAL ASSEMBLER Reason: DUP *CREATININE (eGFR 2020) Not Performed: May 20, 2024@15:11 by [id number] *SHEET METAL ASSEMBLER Reason: DUP Ordering Provider: ELOINA MOORE Report Released Date/Time: Mar 26, 2024 03:22 PM Reporting Lab: [place] [facility] [email or web address] [email or web address] [address] [facility] [address] Performing Lab: [place] [facility] [address] [facility] [address] CHOLESTEROL 141 mg/dL TRIGLYCERIDE 205 mg/dL H 0-150 LDL calculated 57 mg/dL 0-129 CHOL/HDL 3.3 HDL CHOLESTEROL 43 mg/dL 40-60 May 20, 2024 01:32 PM [email or web address] LIVER FUNCTION SERUM Specimen Type: SERUM Comment: *UREA NITROGEN Not Performed: May 20, 2024@15:11 by [id number] *SHEET METAL ASSEMBLER Reason: DUP *GLUCOSE Not Performed: May 20, 2024@15:11 by [id number] *SHEET METAL ASSEMBLER Reason: DUP *SODIUM Not Performed: May 20, 2024@15:11 by [id number] *SHEET METAL ASSEMBLER Reason: DUP *POTASSIUM Not Performed: May 20, 2024@15:11 by [id number] *SHEET METAL ASSEMBLER Reason: DUP *CHLORIDE Not Performed: May 20, 2024@15:11 by [id number] *SHEET METAL ASSEMBLER Reason: DUP *CO2 Not Performed: May 20, 2024@15:11 by [id number] *SHEET METAL ASSEMBLER Reason: DUP *CREATININE (eGFR 2020) Not Performed: May 20, 2024@15:11 by [id number] *SHEET METAL ASSEMBLER Reason: DUP Ordering Provider: ELOINA MOORE Report Released Date/Time: Mar 26, 2024 03:22 PM Reporting Lab: [place] [email or web address] [address] [facility] [address] Performing Lab: [facility] [address] [facility] [address] PROTEIN,TOTAL 6.7 g/dL 6.0-8.3 ALBUMIN 3.8 g/dL 3.5-5.0 ALKALINE PHOSPHATASE 83 U/L 40-150 AST 13 U/L 5-34 ALT 15 U/L BILIRUBIN, TOTAL 0.4 mg/dL 0.2-1.2 May 20, 2024 01:32 PM [facility] PT & INR (PROTIME) PLASMA Specimen Type: PLASM A No comment entered. Ordering Provider: ELOINA MOORE Report Released Date/Time: Mar 26, 2024 03:22 PM Reporting Lab: [address] [address] Performing Lab: [address] [address] INR 1.5 PROTIME 16.0 s H 10.0-13.1 May 20, 2024 01:32 PM [facility] HEMOGLOBIN A1C PANEL BLOOD Specimen Type: BLO OD Comment: Values obtained from A1C measurements can vary. For atypical A1C assays, a reported value of 7.0 could actually be between 6.72 and 7.28 if measured by a reference method. A reported value of 9.0 could actually be between 8.73 and 9.27. Ref: http://www.ngsp.org/CAPdata.asp Ordering Provider: ELOINA MOORE Report Released Date/Time: Mar 26, 2024 03:22 PM Reporting Lab: [address] [address] Performing Lab: [address] [address] HEMOGLOBIN A1C 8.6 H 4.0-5.6 May 20, 2024 01:32 PM [facility] BASIC METABOLIC PANEL (non-fasting) SERUM Spe cimen Type: SERUM No comment entered. Ordering Provider: ADAIR APODACA Report Released Date/Time: May 18, 2024 08:18 AM Reporting Lab: [place] [address] [address] Performing Lab: [address] [address] UREA NITROGEN 17 mg/dL 7-25 GLUCOSE 158 mg/dL H 65-100 SODIUM 137 mmol/L 135-145 POTASSIUM 4.1 mmol/L 3.5-5.0 CHLORIDE 106 mmol/L 100-110 CO2 24 meq/L 20-30 CREATININE, Serum 0.83 mg/dL 0.50-1.40 eGFR(CKD-EPI 2020) 86 mL/min >60 May 20, 2024 01:32 PM [facility] MICROALBUMIN CREATININE RATIO PANEL URINE Spe cimen Type: URINE No comment entered. Ordering Provider: ADAIR APODACA Report Released Date/Time: May 18, 2024 08:18 AM Reporting Lab: [address] [address] Performing Lab: [address] [address] MICROALBUMIN/CREATININE RATIO 19.1 mg/g 0-29.9 MICROALBUMIN,QUANTITATIVE 1.5 mg/dL RR U NAVAIL CREATININE URINE 78.41 mg/dL Vital Signs: All taken on the encounter date This section contains inpatient and outpatient Vital Signs collected on the date of the Encounter. Date/Time Temperature Pulse Blood Pressure Respiratory Rate SP02 Pain Height Weight Body Mass Index Source May 27, 2024 02:01 PM 76 120/71 [facility] Social History: Smoking Status (Most current) [...] 16, 2023 11:14 AM [place]-TOBACCO FORMER USER [facility] Tobacco Use History This section includes a history of the smoking, or tobacco-related health factors, that were collected on or before the date of the Encounter. The data comes from the [place] facility where the Encounter took place. Date/Time Smoking Status/Tobacco Use Comment Yissel gabriel August 16, 2023 11:14 AM [place]-TOBACCO QUIT 15 YRS OR MORE [place] [facility] Encounter Notes: All associated encounter notes This section contains the clinical notes associated to the Encounter. Date/Time Encounter Note(s) Provider Source May 27, 2024 01:32 PM PHARMACY CONSULT: LOCAL TITLE: CONSULT REPORT/PHARMACY STANDARD TITLE: PHARMACY CONSULT DATE OF NOTE: MAY 27, 2024@13:32 ENTRY DATE: MAY 27, 2024@13:32:50 AUTHOR: ADAIR APODACA COSIGNER: URGENCY: STATUS: COMPLETED DEXTER MORAN, 84 yo WHITE MALE, presents for [id number] for initial visit for diabetes medication management. Today, pt presents with his son. HE reports DM x 5-7 years . No fm hx , no A.O. exposure. He was seeing , will likely switch to just [place] since is retiring soon. His son notes [...] patient eats on avg. 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 The Harrison was provided the opportunity express questions or concerns, and the plan was adjusted as needed to address these concerns. -Reviewed with Harrison any new medications, changes to the medication [...] PHARMACY PRACTITIONER Signed: 05/28/2024 10:14 ADAIR APODACA [facility]
--- OUTSIDE RECORDS SUMMARY | 2024-08-04 15:20 | XMS_ITS | Encounter Summary ---
Author Name [facility] Organization [facility] [place] Address [address] [place] [address] Care Team Providers Care Eap Specialist Name Role Phone ELOINA MOORE Primary Care [...] PART A Feb 06, 2005 PART A [id number] DEXTER MORAN PATIENT MEDICARE (WNR) MEDICARE (M) PART B Feb 06, 2005 PART B [id number] DEXTER MORAN PATIENT Selected Encounter This section includes the information on record at [place] for the Encounter. Date/Time Encounter Type Encounter Description Reason Pro vider Source Jul 28, 2024 11:21 PM Outpatient Encounter ADMIN PAT ACTIVTIES (MASNONCT) IHE Encounter Template Text not used by [facility] Plan of Treatment: Future Appointments (+ 6 months) and Future Tests (+/- 45 days) The Plan of Treatment section includes future care activities for the patient [facility] [place] [facility]. This section includes future appointments [...] 29, 2024 10:00 AM AM[place]ULATORY - [place]ICINE [place] [facility] [place] [facility] August 14, 2024 12:00 PM AM[place]ULATORY - [place]ICINE [place] [facility] August 19, 2024 10:40 AM AM[place]ULATORY - [place]ICINE [place] [facility] August 20, 2024 08:00 AM AM[place]ULATORY - [place]ICINE [place] [facility] Oct 12, 2024 11:00 AM AM[place]ULATORY - [place]ICINE [place] [facility] Oct 28, 2024 04:00 PM [facility] - [facility] Nov 25, 2024 09:30 AM AMBULATORY - [facility] Active, Pending, and Scheduled Orders [...] from all [facility]. Test Date/Time Test Type Test Details Facility Name Jul 16, 2024 09:13 AM Consult Order COMMUNITY CARE-NEUROLOGY Cons [facility] [place] [facility] Aug 02, 2024 01:43 PM Consult Order COMMUNITY CARE-GEC NON-SKILLED HOME HEALTH AIDE Cons Cobbler Apprentice's Choice [facility] Social History: Smoking Status (Most current) and Tobacco Use (All prior to encounter date) This section includes the most current, and the historical, smoking and tobacco- related health factors from the [facility] facility where the Encounter took place. Current Smoking Status This section includes the most current smoking, or tobacco-related health factor, from the [place] facility where the Encounter took place. Date/Time Current Smoking Status Comment Facil ity August 16, 2023 11:14 AM VA-TOBACCO FORMER USER [facility] Tobacco Use History This section includes a history of the smoking, or tobacco-related health factors, that were collected on or before the date of the Encounter. The data comes from the [place] facility where the Encounter took place. Date/Time Smoking Status/Tobacco Use Comment F [facility] August 16, 2023 11:14 AM [place]-TOBACCO QUIT 15 YRS OR MORE [facility] Encounter Notes: All associated encounter notes This section contains the clinical notes associated to the Encounter. Date/Time Encounter Note(s) Provider Source Jul 28, 2024 11:21 PM PHARMACY NOTE: LOCAL TITLE: PHARMACY CUSTOMER CARE MEDICATION RENEWAL STANDARD TITLE: PHARMACY NOTE DATE OF NOTE: JUL 28, 2024@23:21 ENTRY DATE: JUL 28, 2024@23:21:34 AUTHOR: MEDARDO TURNER EXP COSIGNER: URGENCY: STATUS: COMPLETED Date: Jul Division: [facility] referred by Pharmacy Call Center for medication renewal: Non-controlled/maintenan ce medication Medications requested: [id number]$ SEMAGLUTIDE 0.25MG/0.375ML INJ PEN 3ML Defer to specialty clinic To be mailed . Please review and renew if appropriate. *This note was generated by [facility] Customer Care. If you have any questions or need assistance, do not contact this author. Please refer all questions to your local, on-site pharmacy departments. /yohana/ MEDARDO TURNER CPhT [employer], [place]/Pharmacy Customer Care Signed: 07/28/2024 23:21 Receipt Acknowledged By: 07/29/2024 10:49 /yohana/ ADAIR APODACA, PHARMD,BCPS CLINICAL PHARMACY PRACTITIONER MEDARDO TURNER [facility]
--- OUTSIDE RECORDS SUMMARY | 2024-08-04 15:20 | XMS_ITS | Clinical Summary ---
Author Organization Unknown Care Team Providers Care Farebox Repairer Name Role Phone OSCAR SUB PRIOR, ELOINA Unavailable Unavailable OTONIEL PT, RUBÉN Unavailable Unavailable SPAFFORD OT, OSCAR Unavailable Unavailable CONDINO BOILER INSTALLER/CAMARA, SHARRI Unavailable Unav ailable FECTEAU BEEF CATTLE FARM MANAGER, LAURA Unavailable Unavailable SALVATORE RN, GERMAIN Unavailable Unavailab rolando ROE MAIL PROCESSING EQUIPMENT MECHANIC, TIA Unavailable Unavailable Payers Payer Name Policy Type Policy Number Effective Date Expira tion Date MEDICARE.NGS.PDGM [id number] Problems Condition Name Condition Details Condition Category Status Onset Date Resolution Date Last Treatment Date Treating Clinician Comments 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 Active 05-12 00:00: 00 CHRONIC OBSTRUCTIVE PULMONARY DISEASE, UNSPECIFIED Active 04-14 00:00: 00 OTHER CHRONIC PAIN Active 04-08 00:00: 00 LOW BACK PAIN, UNSPECIFIED Active 04-14 00:00: 00 ESSENTIAL (PRIMARY) HYPERTENSION Active 04-14 00:00: 00 UNSPECIFIED CONVULSIONS Active 04-14 00:00: 00 ATHSCL HEART DISEASE OF [place] CORONARY ARTERY W/O ANG PCTRS Active 04-08 00:00: 00 DEPRESSION, UNSPECIFIED Active 04-08 00:00: 00 DISEASE OF STOMACH AND DUODENUM, UNSPECIFIED Active 04-08 00:00: 00 OBSTRUCTIVE SLEEP APNEA (ADULT) (PEDIATRIC) Active 04-14 00:00: 00 PHYSICIAN OPHTHALMOLOGIST (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 ANTITHROMBOT ICS/ANTIPLAT ELETS Active 04-14 00:00: 00 PHYSICIAN OPHTHALMOLOGIST (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 ORAL HYPOGLYCEMIC DRUGS Active 04-14 00:00: 00 PERSONAL HISTORY OF NICOTINE DEPENDENCE Active 04-08 00:00: 00 Allergies, Adverse Reactions, Alerts Allergy Name Allergy Type Status Severity Reaction(s) Onset Date Inactive Date Treating Clinician Comments NO KNOWN ALLERGIES Propensity to adverse reactions Active 04-13 12:42: 25 Medications Ordered Medication Name Filled Medication Name Start Date Stop Date Current Medication? Ordering Clinician Indication Dosage Frequency Signature (SIG) Comments Components acetaminoph en 500 mg tablet 04-14 00:00: 00 Yes [id number] PAIN 2 tablet EVERY 8 HOURS 2 tablet EVERY 8 HOURS (route: oral) Med Classific ation: Analgesic , Anti-infl ammatory or Antipyret ic albuterol sulfate HFA 90 mcg/actuati on aerosol inhaler 04-14 00:00: 00 Yes [id number] SHORTNESS OF BREATH 1 puff EVERY 4 HOURS 1 puff EVERY 4 HOURS (route: inhalation ) Med Classific ation: Respirato ry Therapy Agents atorvastati n 80 mg tablet 04-14 00:00: 00 Yes [id number] HIGH LIPIDS 1 tablet BEDTIME 1 tablet BEDTIME (route: oral) Med Classific ation: Cardiovas cular Therapy Agents carvedilol 6.25 mg tablet 04-14 00:00: 00 05-12 23:59 :00 No [id number] HIGH BLOOD PRESSURE 1 tablet 2 TIMES DAILY 1 tablet 2 TIMES DAILY (route: oral) Med Classific ation: Cardiovas cular Therapy Agents clopidogrel 75 mg tablet 04-14 00:00: 00 Yes [id number] CORONARY ARTERY DISEASE 1 tablet EVERY PM 1 tablet EVERY PM (route: oral) Med Classific ation: Hematolog ical Agents fluticasone propionate 50 mcg/actuati on nasal spray,suspe nsion 04-14 00:00: 00 Yes [id number] COPD 1 spray 2 TIMES DAILY 1 spray 2 TIMES DAILY (route: nasal) Med Classific ation: Respirato ry Therapy Agents glipizide 10 mg tablet 04-14 00:00: 00 06-09 23:59 :00 No [id number] DIABETES 1 tablet DAILY 1 tablet DAILY (route: oral) Med Classific ation: Endocrine levetiracet am 500 mg tablet 04-14 00:00: 00 Yes [id number] SEIZURE 1 tablet 2 TIMES DAILY 1 tablet 2 TIMES DAILY (route: oral) Med Classific ation: Central Nervous System Agents losartan 25 mg tablet 04-14 00:00: 00 05-12 23:59 :00 No [id number] HIGH BLOOD PRESSURE 1 tablet DAILY 1 tablet DAILY (route: oral) Med Classific ation: Cardiovas cular Therapy Agents montelukast 10 mg tablet 04-14 00:00: 00 Yes [id number] COPD 1 tablet DAILY 1 tablet DAILY (route: oral) Med Classific ation: Respirato ry Therapy Agents Multivitami n Gummies 200 mcg chewable tablet 04-14 00:00: 00 Yes [id number] SUPPLEMENT 2 tablet DAILY 2 tablet DAILY (route: oral) Med Classific ation: Electroly te Balance-N utritiona l Products omeprazole 20 mg capsule,del ayed release 04-14 00:00: 00 Yes [id number] GERD 1 capsule 2 TIMES DAILY 1 capsule 2 TIMES DAILY (route: oral) Med Classific ation: Gastroint estinal Therapy Agents Qunol Yogesh CoQ10 100 mg capsule 04-14 00:00: 00 Yes [id number] SUPPLEMENT 1 capsule DAILY 1 capsule DAILY (route: oral) Med Classific ation: Alternati ve Therapy sertraline 50 mg tablet 04-14 00:00: 00 Yes [id number] SADNESS 0.5 tablet DAILY 0.5 tablet DAILY (route: oral) Med Classific ation: Central Nervous System Agents sucralfate 1 gram tablet 04-14 00:00: 00 Yes [id number] ULCER PAIN 1 tablet 2 TIMES DAILY 1 tablet 2 TIMES DAILY (route: oral) Med Classific ation: Gastroint estinal Therapy Agents benzonatate 200 mg capsule 04-27 00:00: 00 Yes [id number] COUGH 200 mg 3 TIMES DAILY 200 mg 3 TIMES DAILY (route: oral) Med Classific ation: Respirato ry Therapy Agents prednisone 20 mg tablet 04-28 00:00: 00 06-09 23:59 :00 No [id number] COPD 40 mg DAILY 40 mg DAILY (route: oral) Med Classific ation: Endocrine Zithromax 250 mg tablet 1-20 00:00: 00 06-09 23:59 :00 No [id number] UPPER RESPIRATORY INFECTION 250 mg DAILY 250 mg DAILY (route: oral) Med Classific ation: Anti-Infe ctive Agents Eliquis 5 mg tablet - 00:00: 00 Yes [id number] AFIB 5 mg 2 TIMES DAILY 5 mg 2 TIMES DAILY (route: oral) Med Classific ation: Hematolog ical Agents metoprolol succinate ER 25 mg tablet,exte nded release 24 hr 05-12 00:00: 00 Yes [id number] HTN 25 mg DAILY 25 mg DAILY (route: oral) Med Classific ation: Cardiovas cular Therapy Agents glipizide 10 mg tablet 06-13 00:00: 00 Yes [id number] DIABETES 1 tablet 2 TIMES DAILY 1 tablet 2 TIMES DAILY (route: oral) Med Classific ation: Endocrine Vital Signs Vital Name Observation Time Observation Value Commen ts Temperature 2024-07-15 09:48:00.000 97.3 [degF] Temperature 2024-07-01 15:10:00.000 97 [degF] Temperature 2024-06-24 14:40:00.000 97 [degF] Temperature 2024-06-17 12:44:00.000 97.2 [degF] Pulse 2024-07-15 09:48:00.000 70 /min Pulse 2024-07-01 15:10:00.000 70 /min Pulse 2024-06-24 14:40:00.000 68 /min Pulse 2024-06-17 12:44:00.000 80 /min O2 Saturation (%) 2024-07-15 09:48:00.000 97 % O2 Saturation (%) 2024-06-17 12:44:00.000 96 % Respirations 2024-07-15 09:48:00.000 16 /min Respirations 2024-07-01 15:10:00.000 18 /min Respirations 2024-06-24 14:40:00.000 18 /min Respirations 2024-06-17 12:44:00.000 18 /min Weight (lbs) 2024-06-24 14:41:00.000 208 [lb_av] Systolic Blood Pressure 2024-07-15 09:48:00.000 140 mm [Hg] Systolic Blood Pressure 2024-07-01 15:10:00.000 120 mm [Hg] Systolic Blood Pressure 2024-06-24 14:40:00.000 146 mm [Hg] Systolic Blood Pressure 2024-06-17 12:44:00.000 138 mm [Hg] Diastolic Blood Pressure 2024-07-15 09:48:00.000 70 mm [Hg] Diastolic Blood Pressure 2024-07-01 15:10:00.000 70 mm [Hg] Diastolic Blood Pressure 2024-06-24 14:40:00.000 40 mm [Hg] Diastolic Blood Pressure 2024-06-17 12:44:00.000 50 mm [Hg] Plan of Treatment Planned Activity Planned Date Details Comments Future Scheduled Test RN TO OBSE RVE, ASSESS, EVALUATE, AND DEVELOP AN INDIVIDUALIZED PLAN OF CARE. AGENCY MAY ACCEPT ORDERS FROM CONSULTING PHYSICIANS. RN TO OBSERVE AND ASSESS, MAIL PROCESSING EQUIPMENT MECHANIC/PURCHASING SUPERVISOR TO OBSERVE FOR RISK FOR FALLS AND INSTRUCT IN FALL PREVENTION, HOME SAFETY, MEDICATION MANAGEMENT, INFECTION PREVENTION, AND NUTRITION MANAGEMENT. RN/MAIL PROCESSING EQUIPMENT MECHANIC/PURCHASING SUPERVISOR NURSE MAY PERFORM O2 SATURATION LEVEL ON ADMISSION AND PRN FOR RN TO ASSESS/MAIL PROCESSING EQUIPMENT MECHANIC TO OBSERVE PATIENT, WITH NOTIFICATION TO THE PHYSICIAN IF SATURATION IS 90% IN THE ABSENCE OF MORE SPECIFIC PARAMETERS FROM THE PHYSICIAN. AGENCY MAY PERFORM A RESUMPTION OF CARE VISIT FOLLOWING ANY HOSPITAL ADMISSION. RN/MAIL PROCESSING EQUIPMENT MECHANIC/PURCHASING SUPERVISOR TO MONITOR CO-MORBID CONDITIONS LISTED ON THE PLAN OF CARE AND ANY NEW CONDITIONS THAT PRESENT THEMSELVES DURING THIS EPISODE TO IDENTIFY CHANGES AND INTERVENE TO MINIMIZE COMPLICATIONS. [code = RN TO OBSERVE, ASSESS, EVALUATE, AND DEVELOP AN INDIVIDUALIZED PLAN OF CARE. AGENCY MAY ACCEPT ORDERS FROM CONSULTING PHYSICIANS. RN TO OBSERVE AND ASSESS, MAIL PROCESSING EQUIPMENT MECHANIC/PURCHASING SUPERVISOR TO OBSERVE FOR RISK FOR FALLS AND INSTRUCT IN FALL PREVENTION, HOME SAFETY, MEDICATION MANAGEMENT, INFECTION PREVENTION, AND NUTRITION MANAGEMENT. RN/MAIL PROCESSING EQUIPMENT MECHANIC/PURCHASING SUPERVISOR NURSE MAY PERFORM O2 SATURATION LEVEL ON ADMISSION AND PRN FOR RN TO ASSESS/MAIL PROCESSING EQUIPMENT MECHANIC TO OBSERVE PATIENT, WITH NOTIFICATION TO THE PHYSICIAN IF SATURATION IS 90% IN THE ABSENCE OF MORE SPECIFIC PARAMETERS FROM THE PHYSICIAN. AGENCY MAY PERFORM A RESUMPTION OF CARE VISIT FOLLOWING ANY HOSPITAL ADMISSION. RN/MAIL PROCESSING EQUIPMENT MECHANIC/PURCHASING SUPERVISOR TO MONITOR CO-MORBID CONDITIONS LISTED ON THE PLAN OF CARE AND ANY NEW CONDITIONS THAT PRESENT THEMSELVES DURING THIS EPISODE TO IDENTIFY CHANGES AND INTERVENE TO MINIMIZE COMPLICATIONS.] Future Scheduled Test MEDICATION MANAGEMENT; RN/MAIL PROCESSING EQUIPMENT MECHANIC/PURCHASING SUPERVISOR TO REVIEW MEDICATIONS FOR INTERACTIONS, EFFECTIVENESS OF DRUG THERAPY, AND SIGNS/SYMPTOMS OF ADVERSE REACTIONS. MAY INSTRUCT AND REINFORCE MEDICATION TEACHING RELATED TO THE USE OF MEDICATIONS, DOSAGE, FREQUENCY, PURPOSE, SIDE EFFECTS, AND TO REPORT COMPLICATIONS. [code = MEDICATION MANAGEMENT; RN/MAIL PROCESSING EQUIPMENT MECHANIC/PURCHASING SUPERVISOR TO REVIEW MEDICATIONS FOR INTERACTIONS, EFFECTIVENESS OF DRUG THERAPY, AND SIGNS/SYMPTOMS OF ADVERSE REACTIONS. MAY INSTRUCT AND REINFORCE MEDICATION TEACHING RELATED TO THE USE OF MEDICATIONS, DOSAGE, FREQUENCY, PURPOSE, SIDE EFFECTS, AND TO REPORT COMPLICATIONS.] Future Scheduled Test RISK FOR H OSPITALIZATION; RN TO ASSESS/TEACH, PURCHASING SUPERVISOR/MAIL PROCESSING EQUIPMENT MECHANIC TO OBSERVE/TEACH PATIENT/CAREGIVER ON RISK FOR HOSPITALIZATION/EMERGENCY ROOM VISITS, TEACH SIGNS AND SYMPTOMS THAT PUT PATIENT AT RISK, WHEN TO NOTIFY NURSE/PHYSICIAN OF COMPLICATIONS/DECLINE, AND WHEN TO CALL 911. [code = RISK FOR HOSPITALIZATION; RN TO ASSESS/TEACH, PURCHASING SUPERVISOR/MAIL PROCESSING EQUIPMENT MECHANIC TO OBSERVE/TEACH PATIENT/CAREGIVER ON RISK FOR HOSPITALIZATION/EMERGENCY ROOM VISITS, TEACH SIGNS AND SYMPTOMS THAT PUT PATIENT AT RISK, WHEN TO NOTIFY NURSE/PHYSICIAN OF COMPLICATIONS/DECLINE, AND WHEN TO CALL 911.] Future Scheduled Test CARDIOVASC ULAR SYSTEM; RN TO ASSESS/TEACH, MAIL PROCESSING EQUIPMENT MECHANIC/PURCHASING SUPERVISOR TO OBSERVE/TEACH RELATED TO ALTERED CARDIOVASCULAR STATUS TO MINIMIZE COMPLICATIONS AND REDUCE HOSPITALIZATION. [code = CARDIOVASCULAR SYSTEM; RN TO ASSESS/TEACH, MAIL PROCESSING EQUIPMENT MECHANIC/PURCHASING SUPERVISOR TO OBSERVE/TEACH RELATED TO ALTERED CARDIOVASCULAR STATUS TO MINIMIZE COMPLICATIONS AND REDUCE HOSPITALIZATION.] Future Scheduled Test HYPERTENSI ON MANAGEMENT; RN TO ASSESS AND TEACH, MAIL PROCESSING EQUIPMENT MECHANIC/PURCHASING SUPERVISOR TO OBSERVE AND TEACH WARNING SIGNS AND SYMPTOMS TO AVOID HOSPITALIZATION. [code = HYPERTENSION MANAGEMENT; RN TO ASSESS AND TEACH, MAIL PROCESSING EQUIPMENT MECHANIC/PURCHASING SUPERVISOR TO OBSERVE AND TEACH WARNING SIGNS AND SYMPTOMS TO AVOID HOSPITALIZATION.] Future Scheduled Test RESPIRATOR Y SYSTEM MANAGEMENT; RN TO ASSESS AND TEACH, MAIL PROCESSING EQUIPMENT MECHANIC/PURCHASING SUPERVISOR TO OBSERVE AND TEACH RELATED TO ALTERED RESPIRATORY STATUS TO MINIMIZE COMPLICATIONS AND REDUCE HOSPITALIZATION. [code = RESPIRATORY SYSTEM MANAGEMENT; RN TO ASSESS AND TEACH, MAIL PROCESSING EQUIPMENT MECHANIC/PURCHASING SUPERVISOR TO OBSERVE AND TEACH RELATED TO ALTERED RESPIRATORY STATUS TO MINIMIZE COMPLICATIONS AND REDUCE HOSPITALIZATION.] Future Scheduled Test COPD MANAG EMENT; RN TO ASSESS AND TEACH, MAIL PROCESSING EQUIPMENT MECHANIC/PURCHASING SUPERVISOR TO OBSERVE AND TEACH SIGNS/SYMPTOMS OF COPD EXACERBATION AND PROVIDE EARLY INTERVENTIONS TO MINIMIZE RISK OF HOSPITALIZATION. RN/MAIL PROCESSING EQUIPMENT MECHANIC/PURCHASING SUPERVISOR TO INSTRUCT ON SELF-CARE MANAGEMENT INCLUDING BREATHING TECHNIQUES, AIRWAY CLEARANCE, AND PROPER USE OF COPD MEDICATIONS. RN TO ASSESS AND TEACH, MAIL PROCESSING EQUIPMENT MECHANIC/PURCHASING SUPERVISOR TO OBSERVE AND TEACH PATIENT/CAREGIVER ABILITY TO MONITOR AND RECORD VITAL SIGNS INCLUDING PULSE OXIMETRY AND BLOOD PRESSURE. [code = COPD MANAGEMENT; RN TO ASSESS AND TEACH, MAIL PROCESSING EQUIPMENT MECHANIC/PURCHASING SUPERVISOR TO OBSERVE AND TEACH SIGNS/SYMPTOMS OF COPD EXACERBATION AND PROVIDE EARLY INTERVENTIONS TO MINIMIZE RISK OF HOSPITALIZATION. RN/MAIL PROCESSING EQUIPMENT MECHANIC/PURCHASING SUPERVISOR TO INSTRUCT ON SELF-CARE MANAGEMENT INCLUDING BREATHING TECHNIQUES, AIRWAY CLEARANCE, AND PROPER USE OF COPD MEDICATIONS. RN TO ASSESS AND TEACH, MAIL PROCESSING EQUIPMENT MECHANIC/PURCHASING SUPERVISOR TO OBSERVE AND TEACH PATIENT/CAREGIVER ABILITY TO MONITOR AND RECORD VITAL SIGNS INCLUDING PULSE OXIMETRY AND BLOOD PRESSURE. ] Future Scheduled Test PAIN MANAG EMENT; RN TO ASSESS AND TEACH, PURCHASING SUPERVISOR/MAIL PROCESSING EQUIPMENT MECHANIC TO OBSERVE AND TEACH AND PROVIDE EDUCATION ON PAIN MANAGEMENT TECHNIQUES. [code = PAIN MANAGEMENT; RN TO ASSESS AND TEACH, PURCHASING SUPERVISOR/MAIL PROCESSING EQUIPMENT MECHANIC TO OBSERVE AND TEACH AND PROVIDE EDUCATION ON PAIN MANAGEMENT TECHNIQUES.] Future Scheduled Test DIABETES M ANAGEMENT; RN TO ASSESS AND TEACH, PURCHASING SUPERVISOR/MAIL PROCESSING EQUIPMENT MECHANIC TO OBSERVE AND TEACH INSTRUCTIONS OF DIABETIC CARE TO INCLUDE: DIET CCHO, HEART HEALTHY SKIN CARE, SIGNS AND SYMPTOMS OF HYPO/HYPERGLYCEMIA, PROPER ADMINISTRATION OF DIABETIC MEDICATION. RN/PURCHASING SUPERVISOR/MAIL PROCESSING EQUIPMENT MECHANIC TO INSTRUCT ON DIABETIC FOOT CARE AND MONITOR FOR SKIN LESIONS ON LOWER EXTREMITIES. BLOOD GLUCOSE TESTING TID RN TO ASSESS AND TEACH, PURCHASING SUPERVISOR/MAIL PROCESSING EQUIPMENT MECHANIC TO OBSERVE AND TEACH PATIENT/CAREGIVER ABILITY TO PERFORM AND RECORD BLOOD GLUCOSE TESTING ORDERED AND TO REPORT ABNORMAL FINDINGS TO PHYSICIAN. RN/PURCHASING SUPERVISOR/MAIL PROCESSING EQUIPMENT MECHANIC MAY PERFORM BLOOD GLUCOSE TEST NEEDED. RN/PURCHASING SUPERVISOR/MAIL PROCESSING EQUIPMENT MECHANIC TO REPORT TO PHYSICIAN BLOOD GLUCOSE READINGS GREATER THAN 200 OR LESS THAN 80 RN/PURCHASING SUPERVISOR/MAIL PROCESSING EQUIPMENT MECHANIC TO INSTRUCT PATIENT ON IMPORTANCE OF HGBA1C MONITORING, KIDNEY FUNCTION TEST, EYE AND FOOT EXAMS. [code = DIABETES MANAGEMENT; RN TO ASSESS AND TEACH, PURCHASING SUPERVISOR/MAIL PROCESSING EQUIPMENT MECHANIC TO OBSERVE AND TEACH INSTRUCTIONS OF DIABETIC CARE TO INCLUDE: DIET CCHO, HEART HEALTHY SKIN CARE, SIGNS AND SYMPTOMS OF HYPO/HYPERGLYCEMIA, PROPER ADMINISTRATION OF DIABETIC MEDICATION. RN/PURCHASING SUPERVISOR/MAIL PROCESSING EQUIPMENT MECHANIC TO INSTRUCT ON DIABETIC FOOT CARE AND MONITOR FOR SKIN LESIONS ON LOWER EXTREMITIES. BLOOD GLUCOSE TESTING TID RN TO ASSESS AND TEACH, PURCHASING SUPERVISOR/MAIL PROCESSING EQUIPMENT MECHANIC TO OBSERVE AND TEACH PATIENT/CAREGIVER ABILITY TO PERFORM AND RECORD BLOOD GLUCOSE TESTING ORDERED AND TO REPORT ABNORMAL FINDINGS TO PHYSICIAN. RN/PURCHASING SUPERVISOR/MAIL PROCESSING EQUIPMENT MECHANIC MAY PERFORM BLOOD GLUCOSE TEST NEEDED. RN/PURCHASING SUPERVISOR/MAIL PROCESSING EQUIPMENT MECHANIC TO REPORT TO PHYSICIAN BLOOD GLUCOSE READINGS GREATER THAN 200 OR LESS THAN 80 RN/PURCHASING SUPERVISOR/MAIL PROCESSING EQUIPMENT MECHANIC TO INSTRUCT PATIENT ON IMPORTANCE OF HGBA1C MONITORING, KIDNEY FUNCTION TEST, EYE AND FOOT EXAMS.] Future Scheduled Test ARRHYTHMIA MANAGEMENT; RN TO ASSESS AND TEACH, MAIL PROCESSING EQUIPMENT MECHANIC/PURCHASING SUPERVISOR TO OBSERVE AND TEACH WARNING SIGNS AND SYMPTOMS TO AVOID HOSPITALIZATION. [code = ARRHYTHMIA MANAGEMENT; RN TO ASSESS AND TEACH, MAIL PROCESSING EQUIPMENT MECHANIC/PURCHASING SUPERVISOR TO OBSERVE AND TEACH WARNING SIGNS AND SYMPTOMS TO AVOID HOSPITALIZATION.] Future Scheduled Test FALL REDUC TION MANAGEMENT; RN TO ASSESS AND OBSERVE, MAIL PROCESSING EQUIPMENT MECHANIC/PURCHASING SUPERVISOR TO OBSERVE FALL RISK FACTORS AND EDUCATE PATIENT/CAREGIVER ON STRATEGIES TO MINIMIZE THE RISK OF FALLING. [code = FALL REDUCTION MANAGEMENT; RN TO ASSESS AND OBSERVE, MAIL PROCESSING EQUIPMENT MECHANIC/PURCHASING SUPERVISOR TO OBSERVE FALL RISK FACTORS AND EDUCATE PATIENT/CAREGIVER ON STRATEGIES TO MINIMIZE THE RISK OF FALLING.] Future Scheduled Test NEUROLOGIC AL SYSTEM MANAGEMENT; RN TO ASSESS AND TEACH, PURCHASING SUPERVISOR/MAIL PROCESSING EQUIPMENT MECHANIC TO OBSERVE AND TEACH RELATED TO ALTERED NEUROLOGICAL STATUS TO MINIMIZE COMPLICATIONS AND REDUCE HOSPITALIZATION. [code = NEUROLOGICAL SYSTEM MANAGEMENT; RN TO ASSESS AND TEACH, PURCHASING SUPERVISOR/MAIL PROCESSING EQUIPMENT MECHANIC TO OBSERVE AND TEACH RELATED TO ALTERED NEUROLOGICAL STATUS TO MINIMIZE COMPLICATIONS AND REDUCE HOSPITALIZATION.] Future Scheduled Test SEIZURE DI SORDER MANAGEMENT; RN/PURCHASING SUPERVISOR/MAIL PROCESSING EQUIPMENT MECHANIC TO PROVIDE INSTRUCTION REGARDING MANAGEMENT OF SEIZURE DISORDER AND SEIZURE PRECAUTIONS. [code = SEIZURE DISORDER MANAGEMENT; RN/PURCHASING SUPERVISOR/MAIL PROCESSING EQUIPMENT MECHANIC TO PROVIDE INSTRUCTION REGARDING MANAGEMENT OF SEIZURE DISORDER AND SEIZURE PRECAUTIONS.] Goal 2024-06-09 Patient Goal - G ET BACK TO NORMAL, CLEAR UP COLD, GET STRONGER, GET OUT AND DO LAWN, WORK AROUND THE HOUSE Goal Patient Goal - G ET BACK TO NORMAL, CLEAR UP COLD, GET STRONGER, GET OUT AND DO LAWN, WORK AROUND THE HOUSE Goal Provider Goal - A PLAN OF CARE WILL BE ESTABLISHED THAT MEETS THE PATIENTS NEEDS. PATIENT WILL DEMONSTRATE OXYGEN SATURATION WITHIN NORMAL LIMITS OR PATIENTS OPTIMAL LEVEL ESTABLISHED BY THE PHYSICIAN THROUGHOUT CARE. CHANGES TO CO-MORBID CONDITIONS AND ANY NEW CONDITIONS WILL BE IDENTIFIED AND REPORTED TO THE PHYSICIAN. Goal Provider Goal - PATIENT/CAREGIVER TO VERBALIZE, AND CONSISTENTLY DEMONSTRATE EFFECTIVE, SAFE MANAGEMENT OF MEDICATION INCLUDING KNOWLEDGE OF EFFECTIVENESS, POTENTIAL SIDE EFFECTS AND DRUG REACTIONS AND WHEN TO CONTACT THE APPROPRIATE CARE PROVIDER. PATIENT/CAREGIVER WILL BE ABLE TO VERBALIZE UNDERSTANDING OF MEDICATION REGIMEN AND ACCURATELY TAKE MEDICATIONS PRESCRIBED WITHOUT ADVERSE EFFECTS BY EOE Goal Provider Goal - PATIENT/CAREGIVER WILL VERBALIZE UNDERSTANDING OF SIGNS AND SYMPTOMS THAT PUT THE PATIENT AT RISK FOR HOSPITALIZATION /EMERGENCY ROOM VISITS, WHEN TO NOTIFY NURSE/PHYSICIAN OF COMPLICATIONS/DECLINE AND WHEN TO CALL 911. Goal Provider Goal - PATIENT / CAREGIVER WILL VERBALIZE/DEMONSTRATE UNDERSTANDING OF MEASURES TO MANAGE ALTERED CARDIOVASCULAR STATUS BY EOE Goal Provider Goal - PATIENT / CAREGIVER WILL VERBALIZE/DEMONSTRATE AN ABILITY TO ADHERE TO SELF-MANAGEMENT OF HTN TO MINIMIZE COMPLICATIONS AND AVOID HOSPITALIZATION BY END OF EPISODE. Goal Provider Goal - PATIENT / CAREGIVER WILL VERBALIZE/DEMONSTRATE UNDERSTANDING OF MEASURES TO MANAGE ALTERED RESPIRATORY STATUS BY END OF EPISODE. Goal Provider Goal - PATIENT / CAREGIVER WILL VERBALIZE/DEMONSTRATE AN ABILITY TO ADHERE TO SELF-MANAGEMENT OF COPD TO MINIMIZE COMPLICATIONS AND AVOID HOSPITALIZATION BY END OF EPISODE. Goal Provider Goal - PATIENT / CAREGIVER WILL VERBALIZE / DEMONSTRATE UNDERSTANDING OF PAIN CONTROL MEASURES BY EOE Goal Provider Goal - PATIENT / CAREGIVER WILL VERBALIZE / DEMONSTRATE AN ABILITY TO ADHERE TO SELF-MANAGEMENT OF DIABETES MANAGEMENT BY EOE. Goal Provider Goal - PATIENT / CAREGIVER WILL VERBALIZE/DEMONSTRATE AN ABILITY TO ADHERE TO SELF-MANAGEMENT OF HEART ARRHYTHMIA TO MINIMIZE COMPLICATIONS AND AVOID HOSPITALIZATION BY END OF EPISODE. Goal Provider Goal - PATIENT/CAREGIVER WILL VERBALIZE/DEMONSTRATE UNDERSTANDING OF FALL RISK FACTORS AND IMPLEMENT STRATEGIES TO MINIMIZE FALL RISK. PATIENT/CAREGIVER WILL VERBALIZE/DEMONSTRATE AN ABILITY TO ADHERE TO FALL REDUCTION SELF-MANAGEMENT AND LIFE-STYLE CHANGES BY EOE Goal Provider Goal - PATIENT / CAREGIVER WILL VERBALIZE/DEMONSTRATE UNDERSTANDING OF MEASURES TO MANAGE ALTERED NEUROLOGICAL STATUS BY EOE Goal Provider Goal - PATIENT/CAREGIVER WILL VERBALIZE UNDERSTANDING OF CARE AND MANAGEMENT OF SEIZURE DISORDER BY EOE Encounters Start Date/Time End Date/Time Encounter Type Admission Type Attending [facility] Care Department Encounter ID Discharge Date Discharge Status Discharge Condition Discharge Reason Percent Goals Met 2024-04-14 00:00:00 2024-08-11 00:00:00 Outpatient [facility] [id number]
--- OUTSIDE RECORDS SUMMARY | 2024-08-04 15:20 | XMS_ITS ---
Author Name [facility] [place] Organization [facility] [place] [facility] [place] Address [address] [place] [address] Care Team Providers Care Medical Reviewer Name Role Phone ELOINA MOORE Primary Care [...] PART A Feb 06, 2005 PART A [id number] DEXTER MORAN PATIENT MEDICARE (WNR) MEDICARE (M) PART B Feb 06, 2005 PART B [id number] DEXTER MORAN PATIENT Selected Encounter This section includes the information on record at [place] for the Encounter. Date/Time Encounter Type Encounter Description Reason Provider Source Jun 10, 2024 01:30 PM MTMS BY PHARM ADDL 15 MIN CLINICAL PHARMACY ICD-10-CM E11.9 Type 2 diabetes mellitus without complications ADAIR APODACA Encounter Template Text not used by [place] Assessments - Encounter Diagnoses This section includes the primary and secondary diagnoses documented for the Encounter. Date/Time Primary/Secondary Diagnosis Diagnosis Name Provider Source Jun 11, 2024 12:07 PM PRIMARY Type 2 diabetes mellitus without complications ADAIR APODACA [facility] of Treatment: Future Appointments (+ 6 months) and Future Tests (+/- 45 days) The Plan of Treatment section includes future care activities for the patient [facility] This section includes future appointments and future orders which are active, pending or scheduled. Future Appointments This section includes appointments that were scheduled to occur 6 months from the date of the Encounter, up to a maximum of 20 appointments. The data comes from all [facility]. Appointment Date/Time Appointment Type Appointme nt Facility Name Jun 17, 2024 08:00 AM AMBULATORY - MEDICINE [place] [facility] [facility] Jun 18, 2024 01:00 PM AMBULATORY - REHAB MEDICIN E [place] [facility] [place] [facility] Jul 09, 2024 08:00 AM AMBULATORY - REHAB MEDICIN E [place] [facility] [place] [facility] Jul 22, 2024 11:30 AM AMBULATORY - MEDICINE [place] [facility] Jul 29, 2024 10:00 AM AMBULATORY - MEDICINE [place] [facility] August 14, 2024 12:00 PM AMBULATORY - MEDICINE [place] [facility] August 19, 2024 10:40 AM AMBULATORY - MEDICINE [place] [facility] August 20, 2024 08:00 AM AMBULATORY - MEDICINE [place] [facility] Oct 12, 2024 11:00 AM AMBULATORY - MEDICINE [place] [facility] Oct 28, 2024 04:00 PM AMBULATORY - NONE [place] [place] [facility] Nov 25, 2024 09:30 AM AMBULATORY - MEDICINE [place] [facility] Active, Pending, and Scheduled Orders This section includes a listing of several types of active, pending, and scheduled orders, including clinic medications orders, diagnostic test orders, procedure orders and consult orders; where the start date of the order is 45 days before the date of the Encounter or 45 days after the date of theEncounter. The data comes from all [place] treatment facilities. Test Date/Time Test Type Test Details Facility Name Jun 10, 2024 01:02 PM Consult Order COMMUNITY CARE-CARDIOLOGY Cons [facility] Jun 10, 2024 01:02 PM Consult Order COMMUNITY CARE[facility]ULMONARY [facility] Jul 16, 2024 09:13 AM Consult Order COMMUNITY [facility]-NEUROLOGY Cons [facility] Lab Results: +/- 30 days of the encounter This section includes the Chemistry and Hematology Lab Results on record with [place] for the patient. Radiology Reports and Pathology Reports are provided separately, in subsequent sections. Lab Results This section contains the Chemistry/Hematology Results that were resulted 30 days before or 30 daysafter the date of the Encounter. Date/Time Source Result Type Result - Unit Interpretation Reference Range Specimen Type Comment May 20, 2024 01:32 PM [facility] CBC BLOOD Specimen Type: BLOOD No comment entered. Ordering Provider: ELOINA MOORE Report Released Date/Time: Mar 26, 2024 03:22 PM Reporting Lab: [facility] [address] [facility] [address] Performing Lab: [facility] [address] [facility] [address] WBC 6.58 10*3/uL 4.50-11.00 RBC 3.94 10*6/uL L 4.23-5.66 HGB 11.2 g/dL L 12.8-17 HCT 33.9 L 39.2-50.4 MCV 86.0 fL 82-99 MCHC 33.0 g/dL 30.8-35.1 PLT 226 10*3/uL 140-360 RDW-CV 14.2 12.0-16.0 MCH 28.4 pg 26.2-32.6 May 20, 2024 01:32 PM [facility] LIPID PANEL, NON FASTING SERUM Specimen Type: SERUM Comment: *UREA NITROGEN Not Performed: May 20, 2024@15:11 by [id number] *POISER BALANCE Reason: DUP *GLUCOSE Not Performed: May 20, 2024@15:11 by [id number] *POISER BALANCE Reason: DUP *SODIUM Not Performed: May 20, 2024@15:11 by [id number] *POISER BALANCE Reason: DUP *POTASSIUM Not Performed: May 20, 2024@15:11 by [id number] *POISER BALANCE Reason: DUP *CHLORIDE Not Performed: May 20, 2024@15:11 by [id number] *POISER BALANCE Reason: DUP *CO2 Not Performed: May 20, 2024@15:11 by [id number] *POISER BALANCE Reason: DUP *CREATININE (eGFR 2020) Not Performed: May 20, 2024@15:11 by [id number] *POISER BALANCE Reason: DUP Ordering Provider: ELOINA MOORE Report Released Date/Time: Mar 26, 2024 03:22 PM Reporting Lab: [place] [facility] [employer] [address] Performing Lab: [address] [address] CHOLESTEROL 141 mg/dL TRIGLYCERIDE 205 mg/dL H 0-150 LDL calculated 57 mg/dL 0-129 CHOL/HDL 3.3 HDL CHOLESTEROL 43 mg/dL 40-60 May 20, 2024 01:32 PM [facility] LIVER FUNCTION SERUM Specimen Type: SERUM Comment: *UREA NITROGEN Not Performed: May 20, 2024@15:11 by [id number] *POISER BALANCE Reason: DUP *GLUCOSE Not Performed: May 20, 2024@15:11 by [id number] *POISER BALANCE Reason: DUP *SODIUM Not Performed: May 20, 2024@15:11 by [id number] *POISER BALANCE Reason: DUP *POTASSIUM Not Performed: May 20, 2024@15:11 by [id number] *POISER BALANCE Reason: DUP *CHLORIDE Not Performed: May 20, 2024@15:11 by [id number] *POISER BALANCE Reason: DUP *CO2 Not Performed: May 20, 2024@15:11 by [id number] *POISER BALANCE Reason: DUP *CREATININE (eGFR 2020) Not Performed: May 20, 2024@15:11 by [id number] *POISER BALANCE Reason: DUP Ordering Provider: ELOINA MOORE Report Released Date/Time: Mar 26, 2024 03:22 PM Reporting Lab: [facility] [employer] [address] Performing Lab: [facility] [address] [facility] [address] PROTEIN,TOTAL 6.7 g/dL 6.0-8.3 ALBUMIN 3.8 g/dL 3.5-5.0 ALKALINE PHOSPHATASE 83 U/L 40-150 AST 13 U/L 5-34 ALT 15 U/L BILIRUBIN, TOTAL 0.4 mg/dL 0.2-1.2 May 20, 2024 01:32 PM [facility] PT & INR (PROTIME) PLASMA Specimen Type: PLASM A No comment entered. Ordering Provider: ELOINA MOORE Report Released Date/Time: Mar 26, 2024 03:22 PM Reporting Lab: [address] [address] Performing Lab: [address] [address] INR 1.5 PROTIME 16.0 s H 10.0-13.1 May 20, 2024 01:32 PM [facility] HEMOGLOBIN A1C PANEL BLOOD Specimen Type: [...] Mar 26, 2024 03:22 PM Reporting Lab: [address] [address] Performing Lab: [address] [address] HEMOGLOBIN A1C 8.6 H 4.0-5.6 May 20, 2024 01:32 PM [facility] BASIC METABOLIC PANEL (non-fasting) SERUM Spe cimen Type: SERUM No comment entered. Ordering Provider: ADAIR APODACA Report Released Date/Time: May 18, 2024 08:18 AM Reporting Lab: [facility] [address] [facility] [address] Performing Lab: [address] [address] UREA NITROGEN 17 mg/dL 7-25 GLUCOSE 158 mg/dL H 65-100 SODIUM 137 mmol/L 135-145 POTASSIUM 4.1 mmol/L 3.5-5.0 CHLORIDE 106 mmol/L 100-110 CO2 24 meq/L 20-30 CREATININE, Serum 0.83 mg/dL 0.50-1.40 eGFR(CKD-EPI 2020) 86 mL/min >60 May 20, 2024 01:32 PM [facility] MICROALBUMIN CREATININE RATIO PANEL URINE Spe cimen Type: URINE No comment entered. Ordering Provider: ADAIR APODACA Report Released Date/Time: May 18, 2024 08:18 AM Reporting Lab: [address] [address] Performing Lab: [address] [address] MICROALBUMIN/CREATININE RATIO 19.1 mg/g 0-29.9 MICROALBUMIN,QUANTITATIVE 1.5 [...] 140/80 20 99 8 67 219 34 [facility] Social History: Smoking Status (Most current) and Tobacco Use (All prior to encounter date) This section includes the most current, and the historical, smoking and tobacco- related health factors from the [place] facility where the Encounter took place. Current Smoking Status This section includes the most current smoking, or tobacco-related health factor, from the [place] facility where the Encounter took place. Date/Time Current Smoking Status Comment Facil ity August 16, 2023 11:14 AM VA-TOBACCO FORMER USER [facility] Tobacco Use History This section includes a history of the smoking, or tobacco-related health factors, that were collected on or before the date of the Encounter. The data comes from the [place] facility where the Encounter took place. Date/Time Smoking Status/Tobacco Use Comment Yissel gabriel August 16, 2023 11:14 AM PR-TOBACCO QUIT 15 YRS OR MORE PR CNTRL [facility] Encounter Notes: All associated encounter notes This [...] MORAN, 84 yo WHITE MALE, presents for avyl-lb-wlwy for follow up visit for diabetes medication [...] patient eats on avg. 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
--- OUTSIDE RECORDS SUMMARY | 2024-08-04 15:20 | XMS_ITS | Encounter Summary ---
Author Name [facility] [place] Organization [place] Address [address] [place] [address] Care Team Providers Care Distance Learning Unit Leader Name Role Phone ELOINA MOORE Primary [facility] Insurance Providers: All historical and current Section [...] PART A Feb 06, 2005 PART A [id number] DEXTER MORAN PATIENT MEDICARE (WNR) MEDICARE (M) PART B Feb 06, 2005 PART B [id number] DEXTER MORAN PATIENT Selected Encounter This section includes the information on record at [place] for the Encounter. Date/Time Encounter Type Encounter Description Reason Pro vider Source Apr 20, 2024 11:07 AM Outpatient Encounter ADMIN PAT ACTIVTIES (MASNONCT) IHE Encounter Template Text not used by [place] Plan of Treatment: Future Appointments (+ 6 months) and Future Tests (+/- 45 days) The Plan of Treatment section includes future care activities for the patient from all [place] [facility] This section includes future appointments and future orders which are active, pending or scheduled. Future Appointments This section includes appointments that were scheduled to occur 6 months from the date of the Encounter, up to a maximum of 20 appointments. The data comes from all [place] treatment facilities. Appointment Date/Time Appointment Type Appointme nt Facility Name May 27, 2024 01:30 PM AMBULATORY - MEDICINE [place] [facility] Jun 10, 2024 11:30 AM AMBULATORY - MEDICINE [place] [facility] Jun 10, 2024 01:30 PM AMBULATORY - MEDICINE [place] [facility] Jun 17, 2024 08:00 AM AMBULATORY - MEDICINE [place] C [place] [facility] Jun 18, 2024 01:00 PM AMBULATORY - REHAB MEDICIN E [place] [facility] Jul 09, 2024 08:00 AM AMBULATORY - REHAB MEDICIN E [place] [facility] Jul 22, 2024 11:30 AM AMBULATORY - MEDICINE [place] C [place] [facility] Jul 29, 2024 10:00 AM AMBULATORY - MEDICINE [place] C [place] [facility] August 14, 2024 12:00 PM AMBULATORY - MEDICINE [place] C [place] [facility] August 19, 2024 10:40 AM AMBULATORY - MEDICINE [place] C [place] [facility] August 20, 2024 08:00 AM AMBULATORY - MEDICINE [place] C [place] [facility] Oct 12, 2024 11:00 AM AMBULATORY - MEDICINE [place] C [place] [facility] Active, Pending, and Scheduled Orders This section includes a listing of several types of active, pending, and scheduled orders, including clinic medications orders, diagnostic test orders, procedure orders and consult orders; where the start date of the order is 45 days before the date of the Encounter or 45 days after the date of theEncounter. The data comes from all [facility]. Test Date/Time Test Type Test Details Facility Name Mar 12, 2024 02:31 PM Consult Order COMMUNITY [facility]-SLEEP MEDICINE Cons Retail Specialist[employer] Choice [place] [facility]TR [place] [facility] Lab Results: +/- 30 days of the encounter This section includes the Chemistry and Hematology Lab Results on record with [place] for the patient. Radiology Reports and Pathology Reports are provided separately, in subsequent sections. Lab Results This section contains the Chemistry/Hematology Results that were resulted 30 days before or 30 daysafter the date of the Encounter. Date/Time Source Result Type Result - Unit Interpretation Reference Range Specimen Type Comment May 20, 2024 01:32 PM [facility] CBC BLOOD Specimen Type: BLOOD No comment entered. Ordering Provider: ELOINA MOORE Report Released Date/Time: Mar 26, 2024 03:22 PM Reporting Lab: [address] [address] Performing Lab: [address] [address] WBC 6.58 10*3/uL 4.50-11.00 RBC 3.94 10*6/uL L 4.23-5.66 HGB 11.2 g/dL L 12.8-17 HCT 33.9 L 39.2-50.4 MCV 86.0 fL 82-99 MCHC 33.0 g/dL 30.8-35.1 PLT 226 10*3/uL 140-360 RDW-CV 14.2 12.0-16.0 MCH 28.4 pg 26.2-32.6 May 20, 2024 01:32 PM [facility] LIPID PANEL, NON FASTING SERUM Specimen Type: SERUM Comment: *UREA NITROGEN Not Performed: May 20, 2024@15:11 by [id number] *CONSTRUCTION PLANT OPERATOR Reason: DUP *GLUCOSE Not Performed: May 20, 2024@15:11 by [id number] *CONSTRUCTION PLANT OPERATOR Reason: DUP *SODIUM Not Performed: May 20, 2024@15:11 by [id number] *CONSTRUCTION PLANT OPERATOR Reason: DUP *POTASSIUM Not Performed: May 20, 2024@15:11 by [id number] *CONSTRUCTION PLANT OPERATOR Reason: DUP *CHLORIDE Not Performed: May 20, 2024@15:11 by [id number] *CONSTRUCTION PLANT OPERATOR Reason: DUP *CO2 Not Performed: May 20, 2024@15:11 by [id number] *CONSTRUCTION PLANT OPERATOR Reason: DUP *CREATININE (eGFR 2020) Not Performed: May 20, 2024@15:11 by [id number] *CONSTRUCTION PLANT OPERATOR Reason: DUP Ordering Provider: ELOINA MOORE Report Released Date/Time: Mar 26, 2024 03:22 PM Reporting Lab[facility] [address] [facility] [facility] [address] Performing Lab: [facility] [address] [facility] [facility] [address] CHOLESTEROL 141 mg/dL TRIGLYCERIDE 205 mg/dL H 0-150 LDL calculated 57 mg/dL 0-129 CHOL/HDL 3.3 HDL CHOLESTEROL 43 mg/dL 40-60 May 20, 2024 01:32 PM [facility] LIVER FUNCTION SERUM Specimen Type: SERUM Comment: *UREA NITROGEN Not Performed: May 20, 2024@15:11 by [id number] *CONSTRUCTION PLANT OPERATOR Reason: DUP *GLUCOSE Not Performed: May 20, 2024@15:11 by [id number] *CONSTRUCTION PLANT OPERATOR Reason: DUP *SODIUM Not Performed: May 20, 2024@15:11 by [id number] *CONSTRUCTION PLANT OPERATOR Reason: DUP *POTASSIUM Not Performed: May 20, 2024@15:11 by [id number] *CONSTRUCTION PLANT OPERATOR Reason: DUP *CHLORIDE Not Performed: May 20, 2024@15:11 by [id number] *CONSTRUCTION PLANT OPERATOR Reason: DUP *CO2 Not Performed: May 20, 2024@15:11 by [id number] *CONSTRUCTION PLANT OPERATOR Reason: DUP *CREATININE (eGFR 2020) Not Performed: May 20, 2024@15:11 by [id number] *CONSTRUCTION PLANT OPERATOR Reason: DUP Ordering Provider: ELOINA MOORE Report Released Date/Time: Mar 26, 2024 03:22 PM Reporting Lab: [facility] [address] [facility] [facility] [address] Performing Lab: [facility] [address] [address] PROTEIN,TOTAL 6.7 g/dL 6.0-8.3 ALBUMIN 3.8 g/dL 3.5-5.0 ALKALINE PHOSPHATASE 83 U/L 40-150 AST 13 U/L 5-34 ALT 15 U/L BILIRUBIN, TOTAL 0.4 mg/dL 0.2-1.2 May 20, 2024 01:32 PM [facility] PT & INR (PROTIME) PLASMA Specimen Type: PLASM A No comment entered. Ordering Provider: ELOINA MOORE Report Released Date/Time: Mar 26, 2024 03:22 PM Reporting Lab: [facility] [address] [facility] [facility] [address] Performing Lab: [facility] [address] [facility] [facility] [address] INR 1.5 PROTIME 16.0 s H 10.0-13.1 May 20, 2024 01:32 PM [facility] HEMOGLOBIN A1C PANEL BLOOD Specimen Type: [...] Mar 26, 2024 03:22 PM Reporting Lab: [facility] [address] [facility] [facility] [address] Performing Lab: [address] [address] HEMOGLOBIN A1C 8.6 H 4.0-5.6 May 20, 2024 01:32 PM [facility] BASIC METABOLIC PANEL (non-fasting) SERUM Spe cimen Type: SERUM No comment entered. Ordering Provider: ADAIR APODACA Report Released Date/Time: May 18, 2024 08:18 AM Reporting Lab: [facility] [address] [facility] [facility] [address] Performing Lab: [address] [address] UREA NITROGEN 17 mg/dL 7-25 GLUCOSE 158 mg/dL H 65-100 SODIUM 137 mmol/L 135-145 POTASSIUM 4.1 mmol/L 3.5-5.0 CHLORIDE 106 mmol/L 100-110 CO2 24 meq/L 20-30 CREATININE, Serum 0.83 mg/dL 0.50-1.40 eGFR(CKD-EPI 2020) 86 mL/min >60 May 20, 2024 01:32 PM [facility] MICROALBUMIN CREATININE RATIO PANEL URINE Spe cimen Type: URINE No comment entered. Ordering Provider: ADAIR APODACA Report Released Date/Time: May 18, 2024 08:18 AM Reporting Lab: [facility] [address] [facility] [address] Performing Lab: [facility] [address] [facility] [facility] [address] MICROALBUMIN/CREATININE RATIO 19.1 mg/g 0-29.9 MICROALBUMIN,QUANTITATIVE 1.5 mg/dL RR U NAVAIL CREATININE URINE 78.41 mg/dL Social History: Smoking Status (Most current) and Tobacco Use (All prior to encounter date) This section includes the most current, and the historical, smoking and tobacco- related health factors from the [place] facility where the Encounter took place. Current Smoking Status This section includes the most current smoking, or tobacco-related health factor, from the [place] facility where the Encounter took place. Date/Time Current Smoking Status Comment Facil ity August 16, 2023 11:14 AM VA-TOBACCO FORMER USER [facility] Tobacco Use History This section includes a history of the smoking, or tobacco-related health factors, that were collected on or before the date of the Encounter. The data comes from the [place] facility where the Encounter took place. Date/Time Smoking Status/Tobacco Use Comment F acility August 16, 2023 11:14 AM VA-TOBACCO QUIT 15 YRS OR MORE [facility] Encounter Notes: All associated encounter notes [...] Through [ ] At end of care // FRANCIS ELLINGTON Signed: 04/20/2024 11:10 FRANCIS ELLINGTON [place] [facility]
--- OUTSIDE RECORDS SUMMARY | 2024-08-04 15:20 | XMS_ITS | Encounter Summary ---
Author Name [facility] [place] Address [address] [place] [address] Care Team Providers Care Baffle Installer Name Role Phone ELOINA MOORE Primary Care Provider [facility] Insurance Providers: All historical and current Section [...] PART A Feb 06, 2005 PART A [id number] DEXTER MORAN PATIENT MEDICARE (WNR) MEDICARE (M) PART B Feb 06, 2005 PART B [id number] DEXTER MORAN PATIENT Selected Encounter This section includes the information on record at [place] for the Encounter. Date/Time Encounter Type Encounter Description Reason Provider Source Jun 18, 2024 01:00 PM HEARING AID FITTING/CHECKIN G AUDIOLOGY ICD-10-CM Z46.1 Encounter for fitting and adjustment of hearing aid FADY SIMS Encounter Template Text not used by [facility] Assessments - Encounter Diagnoses This section includes the primary and secondary diagnoses documented for the Encounter. Date/Time Primary/Secondary Diagnosis Diagnosis Name Provider Source Jun 18, 2024 01:23 PM PRIMARY Encounter for fitting and adjustment of hearing aid FADY SIMS [place] [facility] [place] [facility] Jun 18, 2024 01:23 PM SECONDARY Sensorineural hearing loss, bilateral FADY SIMS [place] [facility] [place] [facility] Plan of Treatment: Future Appointments (+ 6 months) and Future Tests (+/- 45 days) The Plan of Treatment section includes future care activities for the patient from all [place] [facility] This section includes future appointments and future orders which are active, pending or scheduled. Future Appointments This section includes appointments that were scheduled to occur 6 months from the date of the Encounter, up to a maximum of 20 appointments. The data comes from all [facility]. Appointment Date/Time Appointment Type Appointme nt Facility Name Jul 09, 2024 08:00 AM AMBULATORY - [place]ICIN E [place] [facility] [place] [facility] Jul 22, 2024 11:30 AM [place]ORY [place] [facility] [place] [facility] Jul 29, 2024 10:00 AM AM[place]ORY [place]ICINE [place] [facility] [place] [facility] August 14, 2024 12:00 PM [place]ORY [place]ICINE [place] [facility] [place] [facility] August 19, 2024 10:40 AM [place]ORY [place]ICINE [place] [facility] [place] [facility] August 20, 2024 08:00 AM [place]ORY [place]ICINE [place] [facility] [place] [facility] Oct 12, 2024 11:00 AM AM[place]ORY [place]ICINE [place] [facility] [place] [facility] Oct 28, 2024 04:00 PM AMBULATORY - NONE [place] [facility] [place] [facility] Nov 25, 2024 09:30 AM AM[place]ULATORY - [place]ICINE [place] [facility] [place] [facility] Active, Pending, and Scheduled Orders This section includes a listing of several types of active, pending, and scheduled orders, including clinic medications orders, diagnostic test orders, procedure orders and consult orders; where the start date of the order is 45 days before the date of the Encounter or 45 days after the date of theEncounter. The data comes from all [facility]. Test Date/Time Test Type Test Details Facility Name Jun 10, 2024 01:02 PM Consult Order [facility]ARD[facility] Cons Broke Beater Machine Operator's Choice [facility] [place] [facility] Jun 10, 2024 01:02 PM Consult Order [facility]-PULMONARY Cons Broke Beater Machine Operator's Choice [place] [facility] [place] [facility] Jul 16, 2024 09:13 AM Consult Order [facility]-NEUROLOGY Cons Broke Beater Machine Operator's [facility] [place] [facility] Aug 02, 2024 01:43 PM Consult Order [facility]-GEC NON-SKILLED HOME HEALTH AIDE Cons Broke Beater Machine [facility] Lab Results: +/- 30 days of the encounter This section includes the Chemistry and Hematology Lab Results on record with [place] for the patient. Radiology Reports and Pathology Reports are provided separately, in subsequent sections. Lab Results This section contains the Chemistry/Hematology Results that were resulted 30 days before or 30 daysafter the date of the Encounter. Date/Time Source Result Type Result - Unit Interpretation Reference Range Specimen Type Comment May 20, 2024 01:32 PM [facility] CBC BLOOD Specimen Type: BLOOD No comment entered. Ordering Provider: ELOINA MOORE Report Released Date/Time: Mar 26, 2024 03:22 PM Reporting Lab: [facility] [address] [address] Performing Lab: [address] [address] WBC 6.58 10*3/uL 4.50-11.00 RBC 3.94 10*6/uL L 4.23-5.66 HGB 11.2 g/dL L 12.8-17 HCT 33.9 L 39.2-50.4 MCV 86.0 fL 82-99 MCHC 33.0 g/dL 30.8-35.1 PLT 226 10*3/uL 140-360 RDW-CV 14.2 12.0-16.0 MCH 28.4 pg 26.2-32.6 May 20, 2024 01:32 PM [facility] LIPID PANEL, NON FASTING SERUM Specimen Type: SERUM Comment: *UREA NITROGEN Not Performed: May 20, 2024@15:11 by [id number] *MANUAL TESTER Reason: DUP *GLUCOSE Not Performed: May 20, 2024@15:11 by [id number] *MANUAL TESTER Reason: DUP *SODIUM Not Performed: May 20, 2024@15:11 by [id number] *MANUAL TESTER Reason: DUP *POTASSIUM Not Performed: May 20, 2024@15:11 by [id number] *MANUAL TESTER Reason: DUP *CHLORIDE Not Performed: May 20, 2024@15:11 by [id number] *MANUAL TESTER Reason: DUP *CO2 Not Performed: May 20, 2024@15:11 by [id number] *MANUAL TESTER Reason: DUP *CREATININE (eGFR 2020) Not Performed: May 20, 2024@15:11 by [id number] *MANUAL TESTER Reason: DUP Ordering Provider: ELOINA MOORE Report Released Date/Time: Mar 26, 2024 03:22 PM Reporting Lab: [facility] [employer] [address] Performing Lab: [address] [address] CHOLESTEROL 141 mg/dL TRIGLYCERIDE 205 mg/dL H 0-150 LDL calculated 57 mg/dL 0-129 CHOL/HDL 3.3 HDL CHOLESTEROL 43 mg/dL 40-60 May 20, 2024 01:32 PM [facility] LIVER FUNCTION SERUM Specimen Type: SERUM Comment: *UREA NITROGEN Not Performed: May 20, 2024@15:11 by [id number] *MANUAL TESTER Reason: DUP *GLUCOSE Not Performed: May 20, 2024@15:11 by [id number] *MANUAL TESTER Reason: DUP *SODIUM Not Performed: May 20, 2024@15:11 by [id number] *MANUAL TESTER Reason: DUP *POTASSIUM Not Performed: May 20, 2024@15:11 by [id number] *MANUAL TESTER Reason: DUP *CHLORIDE Not Performed: May 20, 2024@15:11 by [id number] *MANUAL TESTER Reason: DUP *CO2 Not Performed: May 20, 2024@15:11 by [id number] *MANUAL TESTER Reason: DUP *CREATININE (eGFR 2020) Not Performed: May 20, 2024@15:11 by [id number] *MANUAL TESTER Reason: DUP Ordering Provider: ELOINA MOORE Report Released Date/Time: Mar 26, 2024 03:22 PM Reporting Lab: [facility] [address] [facility] [address] Performing Lab: [address] [address] PROTEIN,TOTAL 6.7 g/dL 6.0-8.3 ALBUMIN 3.8 g/dL 3.5-5.0 ALKALINE PHOSPHATASE 83 U/L 40-150 AST 13 U/L 5-34 ALT 15 U/L BILIRUBIN, TOTAL 0.4 mg/dL 0.2-1.2 May 20, 2024 01:32 PM [facility] PT & INR (PROTIME) PLASMA Specimen Type: PLASM A No comment entered. Ordering Provider: ELOINA MOORE Report Released Date/Time: Mar 26, 2024 03:22 PM Reporting Lab: [address] [address] Performing Lab: [address] [address] INR 1.5 PROTIME 16.0 s H 10.0-13.1 May 20, 2024 01:32 PM [facility] HEMOGLOBIN A1C PANEL BLOOD Specimen Type: [...] Mar 26, 2024 03:22 PM Reporting Lab: [address] [address] Performing Lab: [address] [address] HEMOGLOBIN A1C 8.6 H 4.0-5.6 May 20, 2024 01:32 PM [facility] BASIC METABOLIC PANEL (non-fasting) SERUM Spe cimen Type: SERUM No comment entered. Ordering Provider: ADAIR APODACA Report Released Date/Time: May 18, 2024 08:18 AM Reporting Lab: [address] [address] Performing Lab: [address] [address] UREA NITROGEN 17 mg/dL 7-25 GLUCOSE 158 mg/dL H 65-100 SODIUM 137 mmol/L 135-145 POTASSIUM 4.1 mmol/L 3.5-5.0 CHLORIDE 106 mmol/L 100-110 CO2 24 meq/L 20-30 CREATININE, Serum 0.83 mg/dL 0.50-1.40 eGFR(CKD-EPI 2020) 86 mL/min >60 May 20, 2024 01:32 PM [facility] MICROALBUMIN CREATININE RATIO PANEL URINE Spe cimen Type: URINE No comment entered. Ordering Provider: ADAIR APODACA Report Released Date/Time: May 18, 2024 08:18 AM Reporting Lab: [address] [address] Performing Lab: [address] [address] MICROALBUMIN/CREATININE RATIO 19.1 mg/g 0-29.9 MICROALBUMIN,QUANTITATIVE 1.5 mg/dL RR U NAVAIL CREATININE URINE 78.41 mg/dL Social History: Smoking Status (Most current) and Tobacco Use (All prior to encounter date) This section includes the most current, and the historical, smoking and tobacco- related health factors from the [place] facility where the Encounter took place. Current Smoking Status This section includes the most current smoking, or tobacco-related health factor, from the [place] facility where the Encounter took place. Date/Time Current Smoking Status Comment Kaley ity August 16, 2023 11:14 AM VA-TOBACCO FORMER USER [facility] Tobacco Use History This section includes a history of the smoking, or tobacco-related health factors, that were collected on or before the date of the Encounter. The data comes from the [place] facility where the Encounter took place. Date/Time Smoking Status/Tobacco Use Comment F actong August 16, 2023 11:14 AM VA-TOBACCO QUIT 15 YRS OR [facility] [place] [facility] Encounter Notes: All associated encounter notes This section contains the clinical notes associated to the Encounter. Date/Time Encounter Note(s) Provider Source Jun 29, 2024 11:22 AM ADDENDUM: LOCAL TITLE: Addendum STANDARD TITLE: ADDENDUM DATE OF NOTE: JUN 29, 2024@11:22:16 ENTRY DATE: JUN 29, 2024@11:22:17 AUTHOR: SERJIO INFANTE EXP COSIGNER: URGENCY: STATUS: COMPLETED Remade hearing aids received and certified. [facility] to contact the to schedule a 30 min HAC w/ an Aquatic Laborer for fitting and feedback testing. RTC entered. Hearing aids placed in the black cabinet. /yohana/ SERJIO INFANTE Audiology Health Political Scientist Signed: 06/29/2024 11:23 Receipt Acknowledged By: 06/29/2024 11:31 /yohana/ FRANCIS HENLEY ADVANCED REJECT OPENER AND FILLER ====== --- Original Document --- 06/18/24 AUDIOLOGY CLINIC: has a history of bilateral sensorineural hearing loss. He was seen on 06-18-24 for hearing aid follow up regarding his [place] HS Rs. He reports feedback from his own voice (occlusion) and his son says he talks so soft no one can hear him. Also, states his ears sweat. Connected to [employer] and read out data log. It estimates 13 hours of use per day. Reduced low frequency gain- noted mild improvement in his own voice sound quality. Recommend sending both hearing aids in for remake with max venting. is agreeable. Sent in- when they arrive he should be booked for a 30 minute HAC for picker and sorter load and unload/feedback testing. /yohana/ Lanette CRAFT, [facility]-A STAFF PRODUCT FINISHER Signed: 06/18/2024 13:24 [facility] Jun 18, 2024 08:05 AM AUDIOLOGY E & M NOTE: LOCAL TITLE: AUDIOLOGY CLINIC STANDARD TITLE: AUDIOLOGY E & M NOTE DATE OF NOTE: JUN 18, 2024@08:05 ENTRY DATE: JUN 18, 2024@08:05:11 AUTHOR: FADY SIMS EXP COSIGNER: URGENCY: STATUS: COMPLETED AUDIOLOGY CLINIC Has ADDENDA has a history of bilateral sensorineural hearing loss. He was seen on 06-18-24 for hearing aid follow up regarding his Nicolasa HS Rs. He reports feedback from his own voice (occlusion) and his son says he talks so soft no one can hear him. Also, states his ears sweat. Connected to [employer] and read out data log. It estimates 13 hours of use per day. Reduced low frequency gain- noted mild improvement in his own voice sound quality. Recommend sending both hearing aids in for remake with max venting. [place] is agreeable. Sent in- when they arrive he should be booked for a 30 minute HAC for picker and sorter load and unload/feedback testing. /Lanette Polanco, [facility]-A STAFF PRODUCT FINISHER Signed: 06/18/2024 13:24 06/29/2024 ADDENDUM STATUS: COMPLETED Remade hearing aids received and certified. [facility]ing [facility] to contact the to schedule a 30 min HAC w/ an Aquatic Laborer for fitting and feedback testing. RTC entered. Hearing aids placed in the black cabinet. /toni INFANTE Audiology Health Political Scientist Signed: 06/29/2024 11:23 Receipt Acknowledged By: 06/29/2024 11:31 /yohana/ FRANCIS HENLEY ADVANCED REJECT OPENER AND FILLER 06/29/2024 ADDENDUM STATUS: COMPLETED Appointment scheduled on 07/10/2024, hearing aids placed in the moses cabinet. /toni INFANTE Audiology Health Political Scientist Signed: 06/29/2024 11:40 FADY SIMS [facility]
--- OUTSIDE RECORDS SUMMARY | 2024-08-04 15:20 | XMS_ITS | Encounter Summary ---
Author Name [place] Address [address] [place] [address] Care Team Providers Care Hand Launderer Name Role Phone ROME SAVAGE [facility] Providers: [...] PART A Feb 06, 2005 PART A [id number] DEXTER MORAN PATIENT MEDICARE (WNR) MEDICARE (M) PART B Feb 06, 2005 PART B [id number] DEXTER MORAN PATIENT Selected Encounter This section includes the information on record at [place] for the Encounter. Date/Time Encounter Type Encounter Description Reason Provider Source Jun 16, 2024 03:47 PM MTMS BY PHARM ORTHOPEDIC NURSE 15 MIN CLINICAL PHARMACY ICD-10-CM Z51.81 Encounter for therapeutic drug level monitoring VICKIE WEBB Encounter Template Text not used by [place] Assessments - Encounter Diagnoses This section includes the primary and secondary diagnoses documented for the Encounter. Date/Time Primary/Secondary Diagnosis Diagnosis Name Provider Source Jun 16, 2024 03:50 PM PRIMARY Encounter for therapeutic drug level monitoring VICKIE WEBBFIELD Jun 16, 2024 03:50 PM SECONDARY skilled nursing (current) use of anticoagulants VICKIE WEBB Plan of Treatment: Future Appointments (+ 6 months) and Future Tests (+/- 45 days) The Plan of Treatment section includes future care activities for the patient [facility] [place] [facility] This section includes future appointments and future orders which are active, pending or scheduled. Future Appointments This section includes appointments that were scheduled to occur 6 months from the date of the Encounter, up to a maximum of 20 appointments. The data comes from all [place] treatment facilities. Appointment Date/Time Appointment Type Appointme nt Facility Name Jun 17, 2024 08:00 AM [place]ORY [place] [facility] [place] [facility] Jun 18, 2024 01:00 PM AMBULATORY - REHAB MEDICIN E [place] [facility] [place] [facility] Jul 09, 2024 08:00 AM AMBULATORY - REHAB MEDICIN E [place] [facility] [facility] Jul 22, 2024 11:30 AM AMBULATORY - MEDICINE [place] [facility] [place] [facility] Jul 29, 2024 10:00 AM AM[place]ULATORY - MEDICINE [place] [facility] [facility] August 14, 2024 12:00 PM AMBULATORY - MEDICINE [place] [facility] [facility] August 19, 2024 10:40 AM AMBULATORY - MEDICINE [place] [facility] [place] [facility] August 20, 2024 08:00 AM AMBULATORY - MEDICINE [place] [facility] [place] [facility] Oct 12, 2024 11:00 AM AMBULATORY - MEDICINE [place] [facility] [place] [facility] Oct 28, 2024 04:00 PM AMBULATORY - NONE [place] [facility] [facility] Nov 25, 2024 09:30 AM AMBULATORY - MEDICINE [place] [facility] [facility] Active, Pending, and Scheduled Orders This section includes a listing of several types of active, pending, and scheduled orders, including clinic medications orders, diagnostic test orders, procedure orders and consult orders; where the start date of the order is 45 days before the date of the Encounter or 45 days after the date of theEncounter. The data comes from all [place] treatment facilities. Test Date/Time Test Type Test Details Facility Name Jun 10, 2024 01:02 PM Consult Order [facility]-CARDIOLOGY Cons Television Agent's Choice [place] [facility] [place] [facility] Jun 10, 2024 01:02 PM Consult Order [facility]-PULMONARY Cons Television Agent's Choice [place] [facility] [facility] Jul 16, 2024 09:13 AM Consult Order [facility]-NEUROLOGY Cons Television Agent's Choice [facility] Lab Results: +/- 30 days of the encounter This section includes the Chemistry and Hematology Lab Results on record with [place] for the patient. Radiology Reports and Pathology Reports are provided separately, in subsequent sections. Lab Results This section contains the Chemistry/Hematology Results that were resulted 30 days before or 30 daysafter the date of the Encounter. Date/Time Source Result Type Result - Unit Interpretation Reference Range Specimen Type Comment May 20, 2024 01:32 PM [facility] CBC BLOOD Specimen Type: BLOOD No comment entered. Ordering Provider: ROME SAVAGE Report Released Date/Time: Mar 26, 2024 03:22 PM Reporting Lab: [facility] [address] [address] Performing Lab: [address] [address] WBC 6.58 10*3/uL 4.50-11.00 RBC 3.94 10*6/uL L 4.23-5.66 HGB 11.2 g/dL L 12.8-17 HCT 33.9 L 39.2-50.4 MCV 86.0 fL 82-99 MCHC 33.0 g/dL 30.8-35.1 PLT 226 10*3/uL 140-360 RDW-CV 14.2 12.0-16.0 MCH 28.4 pg 26.2-32.6 May 20, 2024 01:32 PM [facility] LIPID PANEL, NON FASTING SERUM Specimen Type: SERUM Comment: *UREA NITROGEN Not Performed: May 20, 2024@15:11 by [id number] *ORTHOPEDIC NURSE Reason: DUP *GLUCOSE Not Performed: May 20, 2024@15:11 by [id number] *ORTHOPEDIC NURSE Reason: DUP *SODIUM Not Performed: May 20, 2024@15:11 by [id number] *ORTHOPEDIC NURSE Reason: DUP *POTASSIUM Not Performed: May 20, 2024@15:11 by [id number] *ORTHOPEDIC NURSE Reason: DUP *CHLORIDE Not Performed: May 20, 2024@15:11 by [id number] *ORTHOPEDIC NURSE Reason: DUP *CO2 Not Performed: May 20, 2024@15:11 by [id number] *ORTHOPEDIC NURSE Reason: DUP *CREATININE (eGFR 2020) Not Performed: May 20, 2024@15:11 by [id number] *ORTHOPEDIC NURSE Reason: DUP Ordering Provider: ROME SAVAGE Report Released Date/Time: Mar 26, 2024 03:22 PM Reporting Lab: [place] [facility] [address] Performing Lab: [place] [facility] [address] CHOLESTEROL 141 mg/dL TRIGLYCERIDE 205 mg/dL H 0-150 LDL calculated 57 mg/dL 0-129 CHOL/HDL 3.3 HDL CHOLESTEROL 43 mg/dL 40-60 May 20, 2024 01:32 PM [facility] LIVER FUNCTION SERUM Specimen Type: SERUM Comment: *UREA NITROGEN Not Performed: May 20, 2024@15:11 by [id number] *ORTHOPEDIC NURSE Reason: DUP *GLUCOSE Not Performed: May 20, 2024@15:11 by [id number] *ORTHOPEDIC NURSE Reason: DUP *SODIUM Not Performed: May 20, 2024@15:11 by [id number] *ORTHOPEDIC NURSE Reason: DUP *POTASSIUM Not Performed: May 20, 2024@15:11 by [id number] *ORTHOPEDIC NURSE Reason: DUP *CHLORIDE Not Performed: May 20, 2024@15:11 by [id number] *ORTHOPEDIC NURSE Reason: DUP *CO2 Not Performed: May 20, 2024@15:11 by [id number] *ORTHOPEDIC NURSE Reason: DUP *CREATININE (eGFR 2020) Not Performed: May 20, 2024@15:11 by [id number] *ORTHOPEDIC NURSE Reason: DUP Ordering Provider: ROME SAVAGE Report Released Date/Time: Mar 26, 2024 03:22 PM Reporting Lab: [place] [facility] [address] Performing Lab: [facility] [address] [facility] [address] PROTEIN,TOTAL 6.7 g/dL 6.0-8.3 ALBUMIN 3.8 g/dL 3.5-5.0 ALKALINE PHOSPHATASE 83 U/L 40-150 AST 13 U/L 5-34 ALT 15 U/L BILIRUBIN, TOTAL 0.4 mg/dL 0.2-1.2 May 20, 2024 01:32 PM [facility] PT & INR (PROTIME) PLASMA Specimen Type: PLASM A No comment entered. Ordering Provider: ROME SAVAGE Report Released Date/Time: Mar 26, 2024 03:22 PM Reporting Lab: [address] [address] Performing Lab: [address] [address] INR 1.5 PROTIME 16.0 s H 10.0-13.1 May 20, 2024 01:32 PM [facility] HEMOGLOBIN A1C PANEL BLOOD Specimen Type: [...] Mar 26, 2024 03:22 PM Reporting Lab: [address] [address] Performing Lab: [address] [address] HEMOGLOBIN A1C 8.6 H 4.0-5.6 May 20, 2024 01:32 PM [facility] BASIC METABOLIC PANEL (non-fasting) SERUM Spe cimen Type: SERUM No comment entered. Ordering Provider: ADAIR APODACA Report Released Date/Time: May 18, 2024 08:18 AM Reporting Lab: [facility] [address] [facility] [address] Performing Lab: [address] [address] UREA NITROGEN 17 mg/dL 7-25 GLUCOSE 158 mg/dL H 65-100 SODIUM 137 mmol/L 135-145 POTASSIUM 4.1 mmol/L 3.5-5.0 CHLORIDE 106 mmol/L 100-110 CO2 24 meq/L 20-30 CREATININE, Serum 0.83 mg/dL 0.50-1.40 eGFR(CKD-EPI 2020) 86 mL/min >60 May 20, 2024 01:32 PM [facility] MICROALBUMIN CREATININE RATIO PANEL URINE Spe cimen Type: URINE No comment entered. Ordering Provider: ADAIR APODACA Report Released Date/Time: May 18, 2024 08:18 AM Reporting Lab: [address] [address] Performing Lab: [address] [address] MICROALBUMIN/CREATININE RATIO 19.1 mg/g 0-29.9 MICROALBUMIN,QUANTITATIVE 1.5 mg/dL RR U NAVAIL CREATININE URINE 78.41 mg/dL Encounter Notes: All associated encounter notes This section contains the clinical notes associated to the Encounter. Date/Time Encounter Note(s) Provider Source Jun 16, 2024 03:47 PM PHARMACY MEDICATIO N MGT NOTE: LOCAL TITLE: PHARMACY ANTICOAGULATION NOTE STANDARD TITLE: PHARMACY MEDICATION MGT NOTE DATE OF NOTE: JUN 16, 2024@15:47 ENTRY DATE: JUN 16, 2024@15:47:29 AUTHOR: VICKIE WEBB COSIGNER: URGENCY: STATUS: COMPLETED Follow-up: Anticoagulation DOAC Agent Progress Note Reason for visit: 4 week Apixaban/Eliquis Apixaban: Indication: atrial fibrillation Start Date: ~05/20/2024 Expected Duration: indefinite Referring Provider: Rome Savage NP Patient Contact: (amada Centeno) Patient has given permission to leave anticoagulation message on answering machine or with person listed. Subjective: Contacted pt; spoke w/ pt's amada Centeno who reports pt is doing well on [...] 06/16/2024 15:52 /yohana/ CRUZ CARUSO CPHT Clinical Publicist VICKIE WEBB
--- OUTSIDE RECORDS SUMMARY | 2024-08-04 15:20 | XMS_ITS | Continuity of Care Document ---
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 [facility] [place] [facility] Diagnosis: ICD-10-CM E11.9 Type 2 diabetes mellitus without complications Active Diagnosis [facility] [place] [facility] Diagnosis: ICD-10-CM Z46.1 Encounter for fitting and adjustment of hearing aid Active [facility] Diagnosis: ICD-10-CM Z51.81 Encounter for therapeutic drug level monitoring Active Diagnosis [facility] Diagnosis: ICD-10-CM I48.91 Unspecified atrial fibrillation [facility] Diagnosis: ICD-10-CM I10 Essential (primary) hypertension Active Diagnosis [facility] Diagnosis: ICD-10-CM R06.00 Dyspnea, unspecified Active Diagnosis [facility] Diagnosis: ICD-10-CM H90.3 Sensorineural hearing loss, bilateral Active [facility] Diagnosis: ICD-10-CM 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 [facility] Medications Combined list of outpatient medications from [...] PASM RESPIR ATORY (INHAL ATION) ACTIVE 04/14/2025 [id number] 5 ELOINA MOORE 2024 1 [facility] APIXABAN 5MG TAB TAKE ONE TABLET BY MOUTH EVERY 12 HOURS ORAL SUSPEND ED 06/05/2025 [id number] 5 ELOINA MOORE 2024 180 [facility] ATORVASTATI N CA 80MG TAB TAKE ONE-HALF TABLET BY MOUTH ONCE DAILY ORAL SUSPEND ED 04/14/2025 [id number] 5 ELOINA MOORE 2024 45 [facility] ATORVASTATI N CA 80MG TAB TAKE ONE-HALF TABLET BY MOUTH ONCE DAILY ORAL DISCONT INUED 10/16/2024 [id number] 5 ELOINA MOORE 2023 45 [facility] [place] [facility] CARVEDILOL 6.25MG TAB TAKE ONE TABLET BY MOUTH TWICE DAILY ORAL DISCONT INUED BY PROVIDE R 04/14/2025 [id number] 5 ELOINA MOORE 2024 180 [facility] CARVEDILOL 6.25MG TAB TAKE ONE TABLET BY MOUTH TWICE DAILY ORAL DISCONT INUED 10/16/2024 [id number] 5 ELOINA MOORE 2023 180 [facility] CLOPIDOGREL BISULFATE 75MG TAB TAKE ONE TABLET BY MOUTH ONCE DAILY ORAL SUSPEND ED 04/14/2025 [id number] 5 ELOINA MOORE 2024 90 [facility] CLOPIDOGREL BISULFATE 75MG TAB TAKE ONE TABLET BY MOUTH ONCE DAILY ORAL DISCONT INUED 10/16/2024 [id number] ELOINA MOORE 2023 90 [facility] FLUTICASONE PROPIONATE 50MCG/SPRAY SOLN,NASAL, 16GM INSTILL 1 SPRAY INTO EACH NOSTRIL TWICE DAILY FOR NASAL IRRITATI ON/INFLA MMATION NASAL ACTIVE 04/14/2025 [id number] 5 ELOINA MOORE 2024 3 [facility] GLIPIZIDE 10MG TAB TAKE ONE TABLET BY MOUTH TWICE DAILY ORAL DISCONT INUED (EDIT) 04/14/2025 [id number] 5 ELOINA MOORE 2024 180 [facility] [place] GLIPIZIDE 10MG TAB TAKE ONE TABLET BY MOUTH TWICE DAILY ORAL DISCONT INUED 10/16/2024 [id number] 5 ELOINA MOORE 2023 180 [facility] [place] GLIPIZIDE 5MG TAB TAKE ONE TABLET BY MOUTH TWICE DAILY ORAL HOLD 07/23/2025 [id number] NOREEN APODACA 2024 180 [facility] LEVETIRACET AM 500MG TAB TAKE ONE TABLET BY MOUTH TWICE DAILY FOR PARTIAL SEIZURES ORAL ACTIVE 04/14/2025 [id number] 5 ELOINA MOORE 2024 120 [facility] LEVETIRACET AM 750MG TAB TAKE ONE TABLET BY MOUTH TWICE DAILY FOR PARTIAL SEIZURES ORAL DISCONT INUED (EDIT) 10/16/2024 [id number] 4 ELOINA MOORE 2023 180 [facility] LOSARTAN 25MG TAB TAKE ONE TABLET BY MOUTH ONCE DAILY FOR BLOOD PRESSURE /HEART ORAL DISCONT INUED BY PROVIDE R 04/14/2025 [id number] 5 ELOINA MOORE 2024 90 [facility] LOSARTAN 25MG TAB TAKE ONE TABLET BY MOUTH ONCE DAILY FOR BLOOD PRESSURE /HEART ORAL DISCONT INUED 10/16/2024 [id number] 5 ELOINA MOORE 2023 90 [facility] METOPROLOL SUCCINATE 25MG TAB,SA TAKE ONE TABLET BY MOUTH ONCE DAILY FOR BLOOD PRESSURE /HEART ORAL SUSPEND ED 06/04/2025 [id number] 5 ELOINA MOORE 2024 90 [facility] MONTELUKAST NA 10MG TAB TAKE ONE TABLET BY MOUTH ONCE DAILY FOR ASTHMA ORAL ACTIVE 04/14/2025 [id number] 5 ELOINA MOORE 2024 90 [facility] MONTELUKAST NA 10MG TAB TAKE ONE TABLET BY MOUTH ONCE DAILY FOR ASTHMA ORAL DISCONT INUED 10/16/2024 [id number] ELOINA MOORE 2023 90 [facility] OMEPRAZOLE 20MG CAP,EC TAKE TWO CAPSULES BY MOUTH TWICE DAILY BEFORE A MEAL ORAL SUSPEND ED 04/14/2025 [id number] 5 ELOINA MOORE 2024 360 [facility] OMEPRAZOLE 20MG CAP,EC TAKE TWO CAPSULES BY MOUTH TWICE DAILY BEFORE A MEAL ORAL DISCONT INUED 10/16/2024 [id number] 5 ELOINA MOORE 2023 360 [facility] SEMAGLUTIDE 0.25MG/0.37 5ML INJ,SOLN,PE N,3ML INJECT 0.25MG SUBCUTAN EOUSLY ONCE A WEEK FOR 4 WEEKS, AND INJECT 0.5MG ONCE A WEEK FOR 2 WEEKS FOR TYPE 2 DIABETES MELLITUS SUBCUT ANEOUS ACTIVE 09/02/2024 [id number] 5 NOREEN APODACA 2024 1 [facility] SERTRALINE HCL 50MG TAB TAKE ONE-HALF TABLET BY MOUTH ONCE DAILY ORAL SUSPEND ED 04/14/2025 [id number] 5 ELOINA MOORE 2024 45 [facility] SERTRALINE HCL 50MG TAB TAKE ONE-HALF TABLET BY MOUTH ONCE DAILY ORAL DISCONT INUED 10/16/2024 [id number] 5 ELOINA MOORE 2023 45 [facility] SUCRALFATE 1GM TAB TAKE ONE TABLET BY MOUTH TWICE DAILY NEEDED FOR ULCER ORAL ACTIVE 10/16/2024 [id number] 5 ELOINA MOORE 2023 180 [facility] Allergies, Adverse Reactions, Alerts Combined list of allergies from Department of Defense and Veterans Affairs facilities. It does not include entries that were removed or entered in error. Substance Category Reaction Severity Reaction type Status Date Reported Comments Source METFORMIN Propensity to adverse reactions to drug (finding) Diarrhea MILD active 5 [facility] Immunizations Combined list of available immunizations from the Department of Defense and Veterans Affairs facilities. Immunization Series Date Given Administered By Site Reaction Lot Number CVX Code Drug Trailer Park Manager Status Comments Source COVID-19 (MODERNA), MRNA, LNP-S, PF, 50 MCG/0.5 ML (AGES 12+ YEARS) 2024 KRISTINA CALLE CORINNA RIGHT DELTO ID [id number] complet ed Booster for Series, [facility] INFLUENZA, HIGH-DOSE, TRIVALENT, PF 2024 KRISTINA CALLE CORINNA LEFT DELTO ID [id number] 135 complet ed [facility] INFLUENZA, UNSPECIFIED FORMULATION 2022 88 complet ed HISTORICA L INFORMATI ON - FROM OTHER [facility], [facility] Results Combined list of recent chemistry, [...] Mar 26, 2024 03:22 PM Reporting Lab: [facility] [address] [facility] [address] Performing Lab: [facility] [address] [address] [facility] CBC ERYTHROCYTE S [#/VOLUME] IN BLOOD BY AUTOMATED COUNT 3.94 10*6/u L 4.23 - 5.66 05/20 L Specimen Type: BLOOD No comment entered. Ordering Provider: LIAM MOORE Report Released Date/Time: Mar 26, 2024 03:22 PM Reporting Lab: [facility] [address] [facility] [address] Performing Lab: [facility] [address] [address] [facility] CBC HEMOGLOBIN [MASS/VOLUM E] IN BLOOD 11.2 g/dL 12.8 - 17 05/20 L Specimen Type: BLOOD No comment entered. Ordering Provider: LIAM MOORE Report Released Date/Time: Mar 26, 2024 03:22 PM Reporting Lab: [facility] [place] [facility] [address] [facility] [address] Performing Lab: [facility] [place] [facility] [address] [facility] [address] [facility] [place] [facility] CBC HEMATOCRIT [VOLUME FRACTION] OF BLOOD BY AUTOMATED COUNT 33.9 39.2 - 50.4 05/20 L Specimen Type: BLOOD No comment entered. Ordering Provider: LIAM MOORE Report Released Date/Time: Mar 26, 2024 03:22 PM Reporting Lab: [facility] [place] [address] [address] Performing Lab: [facility] [place] [facility] [address] [facility] [address] [facility] [place] [facility] CBC MCV [ENTITIC VOLUME] BY AUTOMATED COUNT 86.0 fL 82 - 99 05/20 Specimen Type: BLOOD No comment entered. Ordering Provider: LIAM MOORE Report Released Date/Time: Mar 26, 2024 03:22 PM Reporting Lab: [facility] [place] [address] [address] Performing Lab: [facility] [place] [facility] [address] [facility] [address] [facility] [place] [facility] CBC MCHC [MASS/VOLUM E] BY AUTOMATED COUNT 33.0 g/dL 30.8 - 35.1 05/20 Specimen Type: BLOOD No comment entered. Ordering Provider: LIAM MOORE Report Released Date/Time: Mar 26, 2024 03:22 PM Reporting Lab: [facility] [place] [facility] [address] [facility] [address] Performing Lab: [facility] [place] [address] [address] [facility] [place] [facility] CBC PLATELETS [#/VOLUME] IN BLOOD BY AUTOMATED COUNT 226 10*3/u L 140 - 360 05/20 Specimen Type: BLOOD No comment entered. Ordering Provider: LIAM MOORE Report Released Date/Time: Mar 26, 2024 03:22 PM Reporting Lab: [facility] [place] [address] [address] Performing Lab: [facility] [place] [facility] [address] [facility] [address] [facility] [place] [facility] CBC ERYTHROCYTE DISTRIBUTIO N WIDTH [RATIO] BY AUTOMATED COUNT 14.2 12.0 - 16.0 05/20 Specimen Type: BLOOD No comment entered. Ordering Provider: LIAM MOORE Report Released Date/Time: Mar 26, 2024 03:22 PM Reporting Lab: [facility] [place] [address] [address] Performing Lab: [facility] [place] [facility] [address] [facility] [address] [facility] [place] [facility] CBC MCH [ENTITIC MASS] BY AUTOMATED COUNT 28.4 pg 26.2 - 32.6 05/20 Specimen Type: BLOOD No comment entered. Ordering Provider: LIAM MOORE Report Released Date/Time: Mar 26, 2024 03:22 PM Reporting Lab: [facility] [place] [address] [address] Performing Lab: [facility] [place] [address] [address] [facility] [place] [facility] LIPID PANEL, NON FASTING CHOLESTEROL [MASS/VOLUM E] IN SERUM OR PLASMA 141 mg/dL 05/20 Specimen Type: SERUM Comment: *UREA NITROGEN Not Performed: May 20, 2024@15:11 by [id number] *HYDRATION PLANT OPERATOR Reason: DUP *GLUCOSE Not Performed: May 20, 2024@15:11 by [id number] *HYDRATION PLANT OPERATOR Reason: DUP *SODIUM Not Performed: May 20, 2024@15:11 by [id number] *HYDRATION PLANT OPERATOR Reason: DUP *POTASSIUM Not Performed: May 20, 2024@15:11 by [id number] *HYDRATION PLANT OPERATOR Reason: DUP *CHLORIDE Not Performed: May 20, 2024@15:11 by [id number] *HYDRATION PLANT OPERATOR Reason: DUP *CO2 Not Performed: May 20, 2024@15:11 by [id number] *HYDRATION PLANT OPERATOR Reason: DUP *CREATININE (eGFR 2020) Not Performed: May 20, 2024@15:11 by [id number] *HYDRATION PLANT OPERATOR Reason: DUP Ordering Provider: LIAM MOORE Report Released Date/Time: Mar 26, 2024 03:22 PM Reporting Lab: [facility] [place] [facility] [address] [facility] [address] Performing Lab: [facility] [place] [facility] [address] [facility] [address] [facility] [place] [facility] LIPID PANEL, NON FASTING TRIGLYCERID E [MASS/VOLUM E] IN SERUM OR PLASMA 205 mg/dL 0 - 150 05/20 H Specimen Type: SERUM Comment: *UREA NITROGEN Not Performed: May 20, 2024@15:11 by [id number] *HYDRATION PLANT OPERATOR Reason: DUP *GLUCOSE Not Performed: May 20, 2024@15:11 by [id number] *HYDRATION PLANT OPERATOR Reason: DUP *SODIUM Not Performed: May 20, 2024@15:11 by [id number] *HYDRATION PLANT OPERATOR Reason: DUP *POTASSIUM Not Performed: May 20, 2024@15:11 by [id number] *HYDRATION PLANT OPERATOR Reason: DUP *CHLORIDE Not Performed: May 20, 2024@15:11 by [id number] *HYDRATION PLANT OPERATOR Reason: DUP *CO2 Not Performed: May 20, 2024@15:11 by [id number] *HYDRATION PLANT OPERATOR Reason: DUP *CREATININE (eGFR 2020) Not Performed: May 20, 2024@15:11 by [id number] *HYDRATION PLANT OPERATOR Reason: DUP Ordering Provider: LIAM MOORE Report Released Date/Time: Mar 26, 2024 03:22 PM Reporting Lab: [facility] [place] [facility] [address] [facility] [address] Performing Lab: [facility] [place] [facility] [address] [facility] [address] [facility] [place] [facility] LIPID PANEL, NON FASTING CHOLESTEROL IN LDL [MASS/VOLUM E] IN SERUM OR PLASMA BY CALCULATION 57 mg/dL 0 - 129 05/20 Specimen Type: SERUM Comment: *UREA NITROGEN Not Performed: May 20, 2024@15:11 by [id number] *HYDRATION PLANT OPERATOR Reason: DUP *GLUCOSE Not Performed: May 20, 2024@15:11 by [id number] *HYDRATION PLANT OPERATOR Reason: DUP *SODIUM Not Performed: May 20, 2024@15:11 by [id number] *HYDRATION PLANT OPERATOR Reason: DUP *POTASSIUM Not Performed: May 20, 2024@15:11 by [id number] *HYDRATION PLANT OPERATOR Reason: DUP *CHLORIDE Not Performed: May 20, 2024@15:11 by [id number] *HYDRATION PLANT OPERATOR Reason: DUP *CO2 Not Performed: May 20, 2024@15:11 by [id number] *HYDRATION PLANT OPERATOR Reason: DUP *CREATININE (eGFR 2020) Not Performed: May 20, 2024@15:11 by [id number] *HYDRATION PLANT OPERATOR Reason: DUP Ordering Provider: LIAM MOORE Report Released Date/Time: Mar 26, 2024 03:22 PM Reporting Lab: [address] [address] Performing Lab: [address] [address] [facility] LIPID PANEL, NON FASTING CHOLESTEROL .TOTAL/CHOL ESTEROL IN HDL [MASS RATIO] IN SERUM OR PLASMA 3.3 05/20 Specimen Type: SERUM Comment: *UREA NITROGEN Not Performed: May 20, 2024@15:11 by [id number] *HYDRATION PLANT OPERATOR Reason: DUP *GLUCOSE Not Performed: May 20, 2024@15:11 by [id number] *HYDRATION PLANT OPERATOR Reason: DUP *SODIUM Not Performed: May 20, 2024@15:11 by [id number] *HYDRATION PLANT OPERATOR Reason: DUP *POTASSIUM Not Performed: May 20, 2024@15:11 by [id number] *HYDRATION PLANT OPERATOR Reason: DUP *CHLORIDE Not Performed: May 20, 2024@15:11 by [id number] *HYDRATION PLANT OPERATOR Reason: DUP *CO2 Not Performed: May 20, 2024@15:11 by [id number] *HYDRATION PLANT OPERATOR Reason: DUP *CREATININE (eGFR 2020) Not Performed: May 20, 2024@15:11 by [id number] *HYDRATION PLANT OPERATOR Reason: DUP Ordering Provider: LIAM MOORE Report Released Date/Time: Mar 26, 2024 03:22 PM Reporting Lab: [facility] [place] [facility] [address] [facility] [address] Performing Lab: [facility] [place] [facility] [address] [facility] [address] [facility] [place] [facility] LIPID PANEL, NON FASTING CHOLESTEROL IN HDL [MASS/VOLUM E] IN SERUM OR PLASMA 43 mg/dL 40 - 60 05/20 Specimen Type: SERUM Comment: *UREA NITROGEN Not Performed: May 20, 2024@15:11 by [id number] *HYDRATION PLANT OPERATOR Reason: DUP *GLUCOSE Not Performed: May 20, 2024@15:11 by [id number] *HYDRATION PLANT OPERATOR Reason: DUP *SODIUM Not Performed: May 20, 2024@15:11 by [id number] *HYDRATION PLANT OPERATOR Reason: DUP *POTASSIUM Not Performed: May 20, 2024@15:11 by [id number] *HYDRATION PLANT OPERATOR Reason: DUP *CHLORIDE Not Performed: May 20, 2024@15:11 by [id number] *HYDRATION PLANT OPERATOR Reason: DUP *CO2 Not Performed: May 20, 2024@15:11 by [id number] *HYDRATION PLANT OPERATOR Reason: DUP *CREATININE (eGFR 2020) Not Performed: May 20, 2024@15:11 by [id number] *HYDRATION PLANT OPERATOR Reason: DUP Ordering Provider: LIAM MOORE Report Released Date/Time: Mar 26, 2024 03:22 PM Reporting Lab: [facility] [place] [facility] [address] [facility] [address] Performing Lab: [facility] [place] [facility] [address] [facility] [address] [facility] [place] [facility] LIVER FUNCTION PROTEIN [MASS/VOLUM E] IN SERUM OR PLASMA 6.7 g/dL 6.0 - 8.3 05/20 Specimen Type: SERUM Comment: *UREA NITROGEN Not Performed: May 20, 2024@15:11 by [id number] *HYDRATION PLANT OPERATOR Reason: DUP *GLUCOSE Not Performed: May 20, 2024@15:11 by [id number] *HYDRATION PLANT OPERATOR Reason: DUP *SODIUM Not Performed: May 20, 2024@15:11 by [id number] *HYDRATION PLANT OPERATOR Reason: DUP *POTASSIUM Not Performed: May 20, 2024@15:11 by [id number] *HYDRATION PLANT OPERATOR Reason: DUP *CHLORIDE Not Performed: May 20, 2024@15:11 by [id number] *HYDRATION PLANT OPERATOR Reason: DUP *CO2 Not Performed: May 20, 2024@15:11 by [id number] *HYDRATION PLANT OPERATOR Reason: DUP *CREATININE (eGFR 2020) Not Performed: May 20, 2024@15:11 by [id number] *HYDRATION PLANT OPERATOR Reason: DUP Ordering Provider: LIAM MOORE Report Released Date/Time: Mar 26, 2024 03:22 PM Reporting Lab: [facility] [place] [facility] [address] [facility] [address] Performing Lab: [facility] [place] [facility] [address] [facility] [address] [facility] LIVER FUNCTION ALBUMIN [MASS/VOLUM E] IN SERUM OR PLASMA 3.8 g/dL 3.5 - 5.0 05/20 Specimen Type: SERUM Comment: *UREA NITROGEN Not Performed: May 20, 2024@15:11 by [id number] *HYDRATION PLANT OPERATOR Reason: DUP *GLUCOSE Not Performed: May 20, 2024@15:11 by [id number] *HYDRATION PLANT OPERATOR Reason: DUP *SODIUM Not Performed: May 20, 2024@15:11 by [id number] *HYDRATION PLANT OPERATOR Reason: DUP *POTASSIUM Not Performed: May 20, 2024@15:11 by [id number] *HYDRATION PLANT OPERATOR Reason: DUP *CHLORIDE Not Performed: May 20, 2024@15:11 by [id number] *HYDRATION PLANT OPERATOR Reason: DUP *CO2 Not Performed: May 20, 2024@15:11 by [id number] *HYDRATION PLANT OPERATOR Reason: DUP *CREATININE (eGFR 2020) Not Performed: May 20, 2024@15:11 by [id number] *HYDRATION PLANT OPERATOR Reason: DUP Ordering Provider: LIAM MOORE Report Released Date/Time: Mar 26, 2024 03:22 PM Reporting Lab: [facility] [place] [facility] [address] [facility] [address] Performing Lab: [facility] [address] [address] [facility] LIVER FUNCTION ALKALINE PHOSPHATASE [ENZYMATIC ACTIVITY/VO LUME] IN SERUM OR PLASMA 83 U/L 40 - 150 05/20 Specimen Type: SERUM Comment: *UREA NITROGEN Not Performed: May 20, 2024@15:11 by [id number] *HYDRATION PLANT OPERATOR Reason: DUP *GLUCOSE Not Performed: May 20, 2024@15:11 by [id number] *HYDRATION PLANT OPERATOR Reason: DUP *SODIUM Not Performed: May 20, 2024@15:11 by [id number] *HYDRATION PLANT OPERATOR Reason: DUP *POTASSIUM Not Performed: May 20, 2024@15:11 by [id number] *HYDRATION PLANT OPERATOR Reason: DUP *CHLORIDE Not Performed: May 20, 2024@15:11 by [id number] *HYDRATION PLANT OPERATOR Reason: DUP *CO2 Not Performed: May 20, 2024@15:11 by [id number] *HYDRATION PLANT OPERATOR Reason: DUP *CREATININE (eGFR 2020) Not Performed: May 20, 2024@15:11 by [id number] *HYDRATION PLANT OPERATOR Reason: DUP Ordering Provider: LIAM MOORE Report Released Date/Time: Mar 26, 2024 03:22 PM Reporting Lab: [address] [address] Performing Lab: [address] [address] [facility] LIVER FUNCTION ASPARTATE AMINOTRANSF ERASE [ENZYMATIC ACTIVITY/VO LUME] IN SERUM OR PLASMA 13 U/L 5 - 34 05/20 Specimen Type: SERUM Comment: *UREA NITROGEN Not Performed: May 20, 2024@15:11 by [id number] *HYDRATION PLANT OPERATOR Reason: DUP *GLUCOSE Not Performed: May 20, 2024@15:11 by [id number] *HYDRATION PLANT OPERATOR Reason: DUP *SODIUM Not Performed: May 20, 2024@15:11 by [id number] *HYDRATION PLANT OPERATOR Reason: DUP *POTASSIUM Not Performed: May 20, 2024@15:11 by [id number] *HYDRATION PLANT OPERATOR Reason: DUP *CHLORIDE Not Performed: May 20, 2024@15:11 by [id number] *HYDRATION PLANT OPERATOR Reason: DUP *CO2 Not Performed: May 20, 2024@15:11 by [id number] *HYDRATION PLANT OPERATOR Reason: DUP *CREATININE (eGFR 2020) Not Performed: May 20, 2024@15:11 by [id number] *HYDRATION PLANT OPERATOR Reason: DUP Ordering Provider: LIAM MOORE Report Released Date/Time: Mar 26, 2024 03:22 PM Reporting Lab: [facility] [place] [facility] [address] [facility] [address] Performing Lab: [facility] [place] [facility] [address] [facility] [address] [facility] [place] [facility] LIVER FUNCTION ALANINE AMINOTRANSF ERASE [ENZYMATIC ACTIVITY/VO LUME] IN SERUM OR PLASMA 15 U/L 05/20 Specimen Type: SERUM Comment: *UREA NITROGEN Not Performed: May 20, 2024@15:11 by [id number] *HYDRATION PLANT OPERATOR Reason: DUP *GLUCOSE Not Performed: May 20, 2024@15:11 by [id number] *HYDRATION PLANT OPERATOR Reason: DUP *SODIUM Not Performed: May 20, 2024@15:11 by [id number] *HYDRATION PLANT OPERATOR Reason: DUP *POTASSIUM Not Performed: May 20, 2024@15:11 by [id number] *HYDRATION PLANT OPERATOR Reason: DUP *CHLORIDE Not Performed: May 20, 2024@15:11 by [id number] *HYDRATION PLANT OPERATOR Reason: DUP *CO2 Not Performed: May 20, 2024@15:11 by [id number] *HYDRATION PLANT OPERATOR Reason: DUP *CREATININE (eGFR 2020) Not Performed: May 20, 2024@15:11 by [id number] *HYDRATION PLANT OPERATOR Reason: DUP Ordering Provider: LIAM MOORE Report Released Date/Time: Mar 26, 2024 03:22 PM Reporting Lab: [facility] [place] [facility] [address] [facility] [address] Performing Lab: [facility] [place] [facility] [address] [facility] [address] [facility] [place] [facility] LIVER FUNCTION BILIRUBIN.T OTAL [MASS/VOLUM E] IN SERUM OR PLASMA 0.4 mg/dL 0.2 - 1.2 05/20 Specimen Type: SERUM Comment: *UREA NITROGEN Not Performed: May 20, 2024@15:11 by [id number] *HYDRATION PLANT OPERATOR Reason: DUP *GLUCOSE Not Performed: May 20, 2024@15:11 by [id number] *HYDRATION PLANT OPERATOR Reason: DUP *SODIUM Not Performed: May 20, 2024@15:11 by [id number] *HYDRATION PLANT OPERATOR Reason: DUP *POTASSIUM Not Performed: May 20, 2024@15:11 by [id number] *HYDRATION PLANT OPERATOR Reason: DUP *CHLORIDE Not Performed: May 20, 2024@15:11 by [id number] *HYDRATION PLANT OPERATOR Reason: DUP *CO2 Not Performed: May 20, 2024@15:11 by [id number] *HYDRATION PLANT OPERATOR Reason: DUP *CREATININE (eGFR 2020) Not Performed: May 20, 2024@15:11 by [id number] *HYDRATION PLANT OPERATOR Reason: DUP Ordering Provider: LIAM MOORE Report Released Date/Time: Mar 26, 2024 03:22 PM Reporting Lab: [facility] [place] [address] [address] Performing Lab: [facility] [place] [address] [address] [facility] PT & INR (PROTIME) INR IN PLATELET POOR PLASMA BY COAGULATION ASSAY 1.5 05/20 Specimen Type: PLASMA No comment entered. Ordering Provider: LIAM MOORE Report Released Date/Time: Mar 26, 2024 03:22 PM Reporting Lab: [facility] [place] [facility] [address] [facility] [address] Performing Lab: [facility] [place] [facility] [address] [facility] [address] [facility] [place] [facility] PT & INR (PROTIME) PROTHROMBIN TIME (PT) 16.0 s 10.0 - 13.1 05/20 H Specimen Type: PLASMA No comment entered. Ordering Provider: LIAM MOORE Report Released Date/Time: Mar 26, 2024 03:22 PM Reporting Lab: [facility] [place] [facility] [address] [facility] [address] Performing Lab: [facility] [place] [address] [address] [facility] [place] [facility] HEMOGLOBI N A1C PANEL HEMOGLOBIN A1C/HEMOGLO BIN.TOTAL [...] Mar 26, 2024 03:22 PM Reporting Lab: [address] [address] Performing Lab: [address] [address] [facility] BASIC METABOLIC PANEL (non-fast ing) UREA NITROGEN [MASS/VOLUM E] IN SERUM OR PLASMA 17 mg/dL 7 - 25 05/20 Specimen Type: SERUM No comment entered. Ordering Provider: ADAIR APODACA Report Released Date/Time: May 18, 2024 08:18 AM Reporting Lab: [address] [address] Performing Lab: [address] [address] [facility] BASIC METABOLIC PANEL (non-fast ing) GLUCOSE [MASS/VOLUM E] IN SERUM OR PLASMA 158 mg/dL 65 - 100 05/20 H Specimen Type: SERUM No comment entered. Ordering Provider: ADAIR APODACA Report Released Date/Time: May 18, 2024 08:18 AM Reporting Lab: [address] [address] Performing Lab: [address] [address] [facility] BASIC METABOLIC PANEL (non-fast ing) SODIUM [MOLES/VOLU ME] IN SERUM OR PLASMA 137 mmol/L 135 - 145 05/20 Specimen Type: SERUM No comment entered. Ordering Provider: ADAIR APODACA Report Released Date/Time: May 18, 2024 08:18 AM Reporting Lab: [facility] [place] [facility] [address] [facility] [address] Performing Lab: [facility] [address] [facility] BASIC METABOLIC PANEL (non-fast ing) POTASSIUM [MOLES/VOLU ME] IN SERUM OR PLASMA 4.1 mmol/L 3.5 - 5.0 05/20 Specimen Type: SERUM No comment entered. Ordering Provider: ADAIR APODACA Report Released Date/Time: May 18, 2024 08:18 AM Reporting Lab: [facility] [address] [address] Performing Lab: [facility] [address] [address] [facility]ITAL[facility] BASIC METABOLIC PANEL (non-fast ing) CHLORIDE [MOLES/VOLU ME] IN SERUM OR PLASMA 106 mmol/L 100 - 110 05/20 Specimen Type: SERUM No comment entered. Ordering Provider: ADAIR APODACA Report Released Date/Time: May 18, 2024 08:18 AM Reporting Lab: [facility] [address] [address] Performing Lab: [facility] [address] [address] [facility] BASIC METABOLIC PANEL (non-fast ing) CARBON DIOXIDE, TOTAL [MOLES/VOLU ME] IN SERUM OR PLASMA 24 meq/L 20 - 30 05/20 Specimen Type: SERUM No comment entered. Ordering Provider: ADAIR APODACA Report Released Date/Time: May 18, 2024 08:18 AM Reporting Lab: [facility] [address] [address] Performing Lab: [facility] [address] [address] [facility] [place] [facility] BASIC METABOLIC PANEL (non-fast ing) CREATININE [MASS/VOLUM E] IN SERUM OR PLASMA 0.83 mg/dL 0.50 - 1.40 05/20 Specimen Type: SERUM No comment entered. Ordering Provider: ADAIR APODACA Report Released Date/Time: May 18, 2024 08:18 AM Reporting Lab: [facility] [place] [address] [address] Performing Lab: [facility] [place] [address] [address] [facility] [place] [facility] BASIC METABOLIC PANEL (non-fast ing) GLOMERULAR FILTRATION RATE/1.73 SQ M.PREDICTED [VOLUME RATE/AREA] IN SERUM, PLASMA OR BLOOD BY CREATININE- BASED FORMULA (CKD-EPI 2020) 86 mL/min 60 05/20 Specimen Type: SERUM No comment entered. Ordering Provider: ADAIR APODACA Report Released Date/Time: May 18, 2024 08:18 AM Reporting Lab: [facility] [place] [address] [address] Performing Lab: [facility] [address] [address] [facility] MICROALBU MIN CREATININ E RATIO PANEL MICROALBUMI N/CREATININ E [MASS RATIO] IN URINE 19.1 mg/g 0 - 29.9 05/20 Specimen Type: URINE No comment entered. Ordering Provider: ADAIR APODACA Report Released Date/Time: May 18, 2024 08:18 AM Reporting Lab: [facility] [place] [address] [address] Performing Lab: [facility] [place] [address] [address] [facility]ERN [facility]ITAL[facility] MICROALBU MIN CREATININ E RATIO PANEL MICROALBUMI N [MASS/VOLUM E] IN URINE 1.5 mg/dL 05/20 Specimen Type: URINE No comment entered. Ordering Provider: ADAIR APOADCA Report Released Date/Time: May 18, 2024 08:18 AM Reporting Lab: [facility] [place] [facility] [address] [facility] [address] Performing Lab: [facility] [place] [facility] [address] [facility] [address] [facility] [place] [facility] MICROALBU MIN CREATININ E RATIO PANEL CREATININE [MASS/VOLUM E] IN URINE 78.41 mg/dL 05/20 Specimen Type: URINE No comment entered. Ordering Provider: ADAIR APODACA Report Released Date/Time: May 18, 2024 08:18 AM Reporting Lab: [facility] [place] [address] [address] Performing Lab: [facility] [place] [address] [address] [facility] [place] [facility] BASIC METABOLIC PANEL (non-fast ing) UREA NITROGEN [MASS/VOLUM E] IN SERUM OR PLASMA 25 mg/dL 7 - 10/15 Specimen Type: SERUM No comment entered. Ordering Provider: LIAM MOORE Report Released Date/Time: Oct 02, 2023 11:31 AM Reporting Lab: [facility] [place] [address] [address] Performing Lab: [facility] [place] [address] [address] [facility] [place] [facility] BASIC METABOLIC PANEL (non-fast ing) GLUCOSE [MASS/VOLUM E] IN SERUM OR PLASMA 121 mg/dL 65 - 100 10/15 H Specimen Type: SERUM No comment entered. Ordering Provider: LIAM MOORE Report Released Date/Time: Oct 02, 2023 11:31 AM Reporting Lab: [facility] [place] [facility] [address] [facility] [address] Performing Lab: [facility] [place] [address] [address] [facility] [place] [facility] BASIC METABOLIC PANEL (non-fast ing) SODIUM [MOLES/VOLU ME] IN SERUM OR PLASMA 135 mmol/L 135 - 145 10/15 Specimen Type: SERUM No comment entered. Ordering Provider: LIAM MOORE Report Released Date/Time: Oct 02, 2023 11:31 AM Reporting Lab: [facility]OMERYTRN [facility]ITAL[facility] [address] Performing Lab: [facility]ENTERN [facility]ITAL[facility] [address] [facility]ERN [facility]ITALUSE [facility] BASIC METABOLIC PANEL (non-fast ing) POTASSIUM [MOLES/VOLU ME] IN SERUM OR PLASMA 4.1 mmol/L 3.5 - 5.0 10/15 Specimen Type: SERUM No comment entered. Ordering Provider: LIAM MOORE Report Released Date/Time: Oct 02, 2023 11:31 AM Reporting Lab: [facility] CENTERN [address] [address] Performing Lab: [facility]ENTERN [facility] [address] [facility] BASIC METABOLIC PANEL (non-fast ing) CHLORIDE [MOLES/VOLU ME] IN SERUM OR PLASMA 104 mmol/L 100 - 110 10/15 Specimen Type: SERUM No comment entered. Ordering Provider: LIAM MOORE Report Released Date/Time: Oct 02, 2023 11:31 AM Reporting Lab: [facility] MONTGOMERYTRN [facility]ITALUSE[address] [address] Performing Lab: [facility] TRN [facility] [address] [facility]ENTERN [facility]ITALUSE [facility] BASIC METABOLIC PANEL (non-fast ing) CARBON DIOXIDE, TOTAL [MOLES/VOLU ME] IN SERUM OR PLASMA 21 meq/L 20 - 30 10/15 Specimen Type: SERUM No comment entered. Ordering Provider: ILAM MOORE Report Released Date/Time: Oct 02, 2023 11:31 AM Reporting Lab: [facility] MONTGOMERYTRN [facility]ITAL[facility] [address] Performing Lab: [facility] [place] [facility] [address] [facility] [address] [facility]N [facility]ITALUSE [facility] BASIC METABOLIC PANEL (non-fast ing) CREATININE [MASS/VOLUM E] IN SERUM OR PLASMA 0.90 mg/dL 0.50 - 1.40 10/15 Specimen Type: SERUM No comment entered. Ordering Provider: LIAM MOORE Report Released Date/Time: Oct 02, 2023 11:31 AM Reporting Lab: [facility] [place] [facility] [address] [facility] [address] Performing Lab: [facility] TRN [facility]ITALUSEAL[facility] [address] [facility] [address] [facility] CENTERN [facility]ITALUSE [facility] BASIC METABOLIC PANEL (non-fast ing) GLOMERULAR FILTRATION RATE/1.73 SQ M.PREDICTED [VOLUME RATE/AREA] IN SERUM, PLASMA OR BLOOD BY CREATININE- BASED FORMULA (CKD-EPI 2020) 85 mL/min 60 10/15 Specimen Type: SERUM No comment entered. Ordering Provider: LIAM MOORE Report Released Date/Time: Oct 02, 2023 11:31 AM Reporting Lab: [facility] TRN [facility]ITALUSEAL[facility] [address] [facility] [address] Performing Lab: [facility] TRN [facility]ITALUSE[address] [address] [facility] LIPID PANEL, NON FASTING CHOLESTEROL [MASS/VOLUM E] IN SERUM OR PLASMA 163 mg/dL 10/15 Specimen Type: SERUM No comment entered. Ordering Provider: LIAM MOORE Report Released Date/Time: Oct 02, 2023 11:31 AM Reporting Lab: [facility]ITALUSEAL[facility] [address] [facility] [address] Performing Lab: [facility] MONTGOMERYTRN [facility]ITALUSE[address] [address] [facility] LIPID PANEL, NON FASTING TRIGLYCERID E [MASS/VOLUM E] IN SERUM OR PLASMA 148 mg/dL 0 - 150 10/15 Specimen Type: SERUM No comment entered. Ordering Provider: LIAM MOORE Report Released Date/Time: Oct 02, 2023 11:31 AM Reporting Lab: [facility] [place] [facility] [address] [facility] [address] Performing Lab: [facility] [place] [facility] [address] [facility] [address] [facility] [place] [facility] LIPID PANEL, NON FASTING CHOLESTEROL IN LDL [MASS/VOLUM E] IN SERUM OR PLASMA BY CALCULATION 86 mg/dL 0 - 129 10/15 Specimen Type: SERUM No comment entered. Ordering Provider: LIAM MOORE Report Released Date/Time: Oct 02, 2023 11:31 AM Reporting Lab: [facility] [facility] [address] [facility] [address] Performing Lab: [facility] [facility] [address] [facility] [address] [facility] [place] [place] [facility] LIPID PANEL, NON FASTING CHOLESTEROL .TOTAL/CHOL ESTEROL IN HDL [MASS RATIO] IN SERUM OR PLASMA 3.5 10/15 Specimen Type: SERUM No comment entered. Ordering Provider: LIAM MOORE Report Released Date/Time: Oct 02, 2023 11:31 AM Reporting Lab: [facility] [place] [facility] [address] [facility] [address] Performing Lab: [facility] [place] [facility] [address] [facility] [address] [facility] [place] [facility] LIPID PANEL, NON FASTING CHOLESTEROL IN HDL [MASS/VOLUM E] IN SERUM OR PLASMA 47 mg/dL 40 - 60 10/15 Specimen Type: SERUM No comment entered. Ordering Provider: LIAM MOORE Report Released Date/Time: Oct 02, 2023 11:31 AM Reporting Lab: [facility] [place] [facility] [address] [facility] [address] Performing Lab: [facility] [place] [facility] [address] [facility] [address] [facility] [place] [facility] LIVER FUNCTION PROTEIN [MASS/VOLUM E] IN SERUM OR PLASMA 6.6 g/dL 6.0 - 8.3 10/15 Specimen Type: SERUM No comment entered. Ordering Provider: LIAM MOORE Report Released Date/Time: Oct 02, 2023 11:31 AM Reporting Lab: [facility] [place] [facility] [address] [facility] [address] Performing Lab: [facility] [place] [facility] [address] [facility] [address] [facility] [place] [facility] LIVER FUNCTION ALBUMIN [MASS/VOLUM E] IN SERUM OR PLASMA 3.7 g/dL 3.5 - 5.0 10/15 Specimen Type: SERUM No comment entered. Ordering Provider: LIAM MOORE Report Released Date/Time: Oct 02, 2023 11:31 AM Reporting Lab: [facility]ITAL[facility] [address] [address] Performing Lab: [facility] [place] [facility] [address] [facility] [address] [facility] LIVER FUNCTION ALKALINE PHOSPHATASE [ENZYMATIC ACTIVITY/VO LUME] IN SERUM OR PLASMA 86 U/L 40 - 150 10/15 Specimen Type: SERUM No comment entered. Ordering Provider: LIAM MOORE Report Released Date/Time: Oct 02, 2023 11:31 AM Reporting Lab: [facility] [place] [address] [address] Performing Lab: [facility] [facility] [address] [facility] [address] [facility] LIVER FUNCTION ASPARTATE AMINOTRANSF ERASE [ENZYMATIC ACTIVITY/VO LUME] IN SERUM OR PLASMA 17 U/L 5 - 34 10/15 Specimen Type: SERUM No comment entered. Ordering Provider: LIAM MOORE Report Released Date/Time: Oct 02, 2023 11:31 AM Reporting Lab: [facility] [place] [address] [address] Performing Lab: [facility]ITAL[facility] [address] [address] [facility] [place] [facility] LIVER FUNCTION ALANINE AMINOTRANSF ERASE [ENZYMATIC ACTIVITY/VO LUME] IN SERUM OR PLASMA 21 U/L 10/15 Specimen Type: SERUM No comment entered. Ordering Provider: LIAM MOORE Report Released Date/Time: Oct 02, 2023 11:31 AM Reporting Lab: [facility] [place] [facility] [address] [facility] [address] Performing Lab: [facility] [place] [facility] [address] [facility] [address] [facility] [place] [facility] LIVER FUNCTION BILIRUBIN.T OTAL [MASS/VOLUM E] IN SERUM OR PLASMA 0.4 mg/dL 0.2 - 1.2 10/15 Specimen Type: SERUM No comment entered. Ordering Provider: LIAM MOORE Report Released Date/Time: Oct 02, 2023 11:31 AM Reporting Lab: [facility] [place] [facility] [address] [facility] [address] Performing Lab: [facility] [place] [facility] [address] [facility] [address] [facility] [place] [facility] Vital Signs Combined list of inpatient and outpatient Vital Signs from Department of Defense and Veterans Affairs, ranging from 12 months to all on record, depending upon the facility. Vital Sign Value Date Comments Source SYSTOLIC BLOOD PRESSURE 184 07/30/19 25 10:04:06 [facility] [place] [facility] DIASTOLIC BLOOD PRESSURE 73 025 10:04:06 [facility] [place] [facility] PULSE OXIMETRY 97 07/29/2024 10:04:06 [facility] [place] [facility] TEMPERATURE 97.4 07/29/2024 10:04:06 [facility] [place] [facility] PULSE 69 07/29/2024 10:04:06 [facility] [place] [facility] RESPIRATION 18 07/29/2024 10:04:06 [facility] [place] [facility] SYSTOLIC BLOOD PRESSURE 136 06/29/19 25 11:29:00 [facility] [place] [facility] DIASTOLIC BLOOD PRESSURE 78 025 11:29:00 [facility] [place] [facility] SYSTOLIC BLOOD PRESSURE 140 06/11/19 25 11:30:07 [facility] [place] [facility] DIASTOLIC [...] 04/13/2024 09:56:23 [facility] [place] [facility] Encounters Combined [...] [facility] En[facility] [id number] 02/06 [facility] En[facility] [id number] 07/07 [facility] En[facility] [id number] 07/31 [facility] En[facility] [id number] 08/15 [facility] En[facility] [id number] 08/28 [facility] En[facility] [id number] 09/03 [facility] En[facility] [id number] 09/15 [facility] En[facility] [id number] 09/15 [facility] OFFICE O/P NEW MOD 45 MIN [id number] Diagnos is: ICD-10- CM I25.10 Athscl heart disease of squaxin coronar y artery w/o ang pctGrupo Buckley 10/15 [facility] En[facility] [id number] 02/19 [facility] En[facility] [id number] 03/12 [facility] En[facility] [id number] [place] 03/13 [facility] En[facility] [id number] 03/16 [facility] En[facility] [id number] 03/17 [facility] HEARING AID EXAM BOTH EARS [id number] Diagnos is: ICD-10- CM H90.3 Sensori neural hearing loss, bilGEOFF Jackson 03/20 [facility] En[facility] [id number] 03/24 [facility]/[place] HI 40 MIN [id number] Diagnos is: ICD-10- CM R06.00 Dyspnea , unspeci fiGrupo Meier 04/13 [facility] En[facility] [id number] [facility] En[facility] [id number] [facility] En[facility] [id number] [facility] HEARING SERVICE [id number] Diagnos is: ICD-10- CM Z46.1 Encount er for fitting and adjustm ent of hearing aid SENIOR,EBONI BRITT L 04/17 [facility] En[facility] [id number] 04/20 [facility] En[facility] [id number] [facility] En[facility] [id number] 04/24 [facility] En[facility] [id number] 04/28 [facility] En[facility] [id number] 05/01 [facility] En[facility] [id number] 05/11 [facility] NQHP OL DIG ASSMT&MGMT 5-10 [id number] Diagnos is: ICD-10- CM I10 Essenti al (primar y) hyperte nsion SOVEROW, RISTY A 05/11 [facility] En[facility] [id number] 05/12 [facility] En[facility] [id number] 05/12 [facility] NQHP OL DIG ASSMT&MGMT 5-10 [id number] Diagnos is: ICD-10- CM E11.9 Type 2 diabete s mellitu s without complic ations SOVEROW, RISTY A 05/15 [facility] NQHP OL DIG ASSMT&MGMT 5-10 [id number] Diagnos is: ICD-10- CM I10 Essenti al (primar y) hyperte nsion SOVEROW,CH RISTY A 05/26 [facility] En[facility] [id number] 05/27 [facility] MTMS BY PHARM ADDL 15 MIN [id number] Diagnos is: ICD-10- CM E11.9 Type 2 diabete s mellitu s without complic ations ADAIR APODACA A 05/27 [facility] Outpatient Encounter [id number] 05/29 [facility] [place] MTMS BY PHARM HYDRATION PLANT OPERATOR 15 MIN [id number] 1BY. 60 Diagnos is: ICD-10- CM Z51.81 Encount er for therape utic drug level monitor ELIAS Stephens 06/03 [place] [facility] Outpatient Encounter [id number]/09 [facility] (6[facility]) NQHP OL DIG ASSMT&MGMT 5-10 [id number] 1GE. 36 Diagnos is: ICD-10- CM E11.9 Type 2 diabete s mellitu s without complic ations EMERALD LEE 06/09 [facility] (631GE) [facility] OFFICE O/P EST HI 40 MIN [id number] 1. Diagnos is: ICD-10- CM I48.91 Unspeci fied atrial fibrill ation [employer] MOORE 06/10 [facility] MTMS BY PHARM ADDL 15 MIN [id number] Diagnos is: ICD-10- CM E11.9 Type 2 diabete s mellitu s without complic ations ADAIR APODACA A 06/10 [facility] Outpatient Encounter [id number] 06/13 [facility] [place] MTMS BY PHARM HYDRATION PLANT OPERATOR 15 MIN [id number] Diagnos is: ICD-10- CM Z51.81 Encount er for therape utic drug level monitor ELAIS Stephens IE 06/16 [place] [facility] HEARING AID FITTING/CH ECKING [id number] Diagnos is: ICD-10- CM Z46.1 Encount er for fitting and adjustm ent of hearing aid Ronan SIMS 06/18 [facility] HEARING AID FITTING/CH ECKING [id number] Diagnos is: ICD-10- CM Z46.1 Encount er for fitting and adjustm ent of hearing aid Ronan SIMS 07/09 [facility] Outpatient Encounter [id number] 07/16 [facility] MTMS BY PHARM ADDL 15 MIN [id number] Diagnos is: ICD-10- CM E11.9 Type 2 diabete s mellitu s without complic ations ADAIR APODACA 07/22 [facility] Outpatient Encounter [id number] 07/28 [facility] Out[facility] Encounter [id number] 07/28 [facility] Outpatient Encounter [id number] 07/28 [facility] OFFICE O/P NEW LOW 30 MIN [id number] Diagnos is: ICD-10- CM E11.59 Type 2 diabete s mellitu s with oth circula tory complic atTENZIN Cota D 07/29 [facility] Social History Combined list of available smoking, tobacco, and other social history from Department of Defense and Veterans Affairs facilities. Social History Type Response Date Comment Sourc e Tobacco smoking status NHIS MA-TOBACCO FORMER USER 08/16/2023 [facility] History of tobacco use MA-TOBACCO QUIT 15 YRS OR MORE 08/16/2023 [facility] Plan of Care List of future care activities from Department of Veterans Affairs facilities. Additional future care activities may be listed in the Assessment and Plan section. Date/Time Care Activity Care Activity Detail Facili ty 08/14/2024 AMBULATORY - MEDICINE AMBULATORY - MEDICI [facility]
--- OUTSIDE RECORDS SUMMARY | 2024-08-04 15:20 | XMS_ITS ---
Author Name [facility] [place] [facility] [place] Address [address] [place] [address] Care Team Providers Care News Writer Name Role Phone ELOINA MOORE [facility] Insurance Providers: All historical and current Section [...] PART A Feb 06, 2005 PART A [id number] DEXTER MORAN PATIENT MEDICARE (WNR) MEDICARE (M) PART B Feb 06, 2005 PART B [id number] DEXTER MORAN PATIENT Selected Encounter This [...] 2024 10:52 AM PRIMARY Dyspnea, unspecified [facility] Apr 13, 2024 10:52 AM SECONDARY Athscl heart disease of [place] coronary artery w/o ang pctrs [facility] Apr 13, 2024 10:52 AM SECONDARY Encounter for immunization [facility] Apr 13, 2024 10:52 AM SECONDARY Essential (primary) hypertension [facility] Apr 13, 2024 10:52 AM SECONDARY Low back pain, unspecified [facility] Apr 13, 2024 10:52 AM SECONDARY Obstructive sleep apnea (adult) (pediatric) [facility] Apr 13, 2024 10:52 AM SECONDARY Type 2 diabetes mellitus without complications [facility] Apr 13, 2024 10:52 AM SECONDARY Unspecified convulsions [facility] Plan of Treatment: Future Appointments (+ 6 months) and Future Tests (+/- 45 days) The Plan of Treatment section includes future care activities for the patient from all [facility]. This section includes future appointments and future orders which are active, pending or scheduled. Future Appointments This section includes appointments that were scheduled to occur 6 months from the date of the Encounter, up to a maximum of 20 appointments. The data comes from all [facility]. Appointment Date/Time Appointment Type Appointme nt Facility Name Apr 17, 2024 10:00 AM AMBULATORY - REHAB MEDICIN E [facility] May 27, 2024 01:30 PM AMBULATORY - MEDICINE [facility] Jun 10, 2024 11:30 AM AMBULATORY - MEDIC[facility] Jun 10, 2024 01:30 PM AMBULATORY - MEDICINE [place] [facility] [place] [facility] Jun 17, 2024 08:00 AM AMBULATORY - MEDICINE [place] [facility] [place] [facility] Jun 18, 2024 01:00 PM AMBULATORY - REHAB MEDICIN [facility] [place] Jul 09, 2024 08:00 AM AMBULATORY - REHAB MEDICIN E [facility] [place] [facility] Jul 22, 2024 11:30 AM AMBULATORY - MEDICINE [place] [facility] [place] [facility] Jul 29, 2024 10:00 AM AMBULATORY - MEDICINE [place] [facility] [place] [facility] August 14, 2024 12:00 PM AMBULATORY - MEDICINE [place] [facility] [place] [facility] August 19, 2024 10:40 AM AMBULATORY - MEDICINE [place] [facility] [place] [facility] August 20, 2024 08:00 AM AMBULATORY - MEDIC[facility] Active, Pending, and Scheduled Orders This section includes a listing of several types of active, pending, and scheduled orders, including clinic medications orders, diagnostic test orders, procedure orders and consult orders; where the start date of the order is 45 days before the date of the Encounter or 45 days after the date of theEncounter. The data comes from all [place] treatment facilities. Test Date/Time Test Type Test Details Facility Name Mar 12, 2024 02:31 PM Consult Order [facility] Cons Supervisor [employer] [facility] Vital Signs: All taken on the encounter date This section contains inpatient and outpatient Vital Signs collected on the date of the Encounter. Date/Time Temperature Pulse Blood Pressure Respiratory Rate SP02 Pain Height Weight Body Mass Index Source Apr 13, 2024 10:47 AM 138/78 [place] [facility] [place] [facility] Apr 13, 2024 09:56 AM 98.3 64 160/82 20 97 1 67 218 34 [facility] [place] [facility] Immunizations: All administered on the encounter date This section contains immunizations associated to the Encounter. Immunization Series Date Issued Administered By Site Reaction Lot Number CVX Code Drug Property Inspector Comment(s) Source COVID-19 (MODERNA), MRNA, LNP-S, PF, 50 MCG/0.5 ML (AGES 12+ YEARS) Apr 13, 2024 KRISTINA CALLE CORINNA RIGHT DELTO ID [id number] MODERNA [employer] Booster for Series, ADMINISTERE D AT [facility] INFLUENZA, HIGH-DOSE, TRIVALENT, PF Apr 13, 2024 KRISTINA CALLE LEFT DELTO ID [id number] [employer] PASTEUR ADMINISTERE D AT [facility] Social History: Smoking Status (Most [...] 16, 2023 11:14 AM VA-TOBACCO FORMER USER [facility] Tobacco Use History This section includes a history of the smoking, or tobacco-related health factors, that were collected on or before the date of the Encounter. The data comes from the [place] facility where the Encounter took place. Date/Time Smoking Status/Tobacco Use Comment F actong August 16, 2023 11:14 AM [place]-TOBACCO QUIT 15 YRS OR MORE [facility] Encounter Notes: All associated encounter notes [...] complaint: Patient is a 84 year old [place]. HPI: Pleasant male here with his son to follow up. [...] 09:56)BMI: 34.2218 lb [98.88 kg] (04/13/2024 09:56) [place] is alert and oriented X3 Neck: supple [...] followin. Coronary artery disease - maintains non [place] cardiology. 2. Type 2 diabetes mellitus - recent labs with community PCP, will get records. 3. Seizure - follows non [facility] neurology, on keppra. 4. Obstructive sleep apnea syndrome - using CPAP, has sleep study scheduled. Health Care Maintenance: COVID and Flu+ given in clinic. Today I spent 45 minutes on some or all of the following: chart review, history, physical examination, treatment planning, education and counseling of the patient/family/direct care professional, placing orders, communicating with other health care [...] diminished) SENSORY CHECK: Includes 10 gram Monofilament (Dorothy-Felipe) test of sensation. Intact (Greater than or [...] (local) and dispensed from another [place] or DoD facility (remote) as well as [...] with a VA or non-VA provider. /yohana/ SYED Spivey DNP, [place] Primary Care Nurse Practitioner Signed: 04/13/2024 10:51 04/15/2024 ADDENDUM STATUS: COMPLETED dx copd, adding albuterol to medications and referring to [facility] for teaching. Also getting PFTs for staging. /yohana/ SYED Spivey DNP, [place] Primary Care Nurse Practitioner Signed: 04/15/2024 14:42 ELOINA [place] [facility] [place] [facility] Apr 13, 2024 10:04 AM PREVENTIVE MEDICINE [...] Directives and written notification of his/her rights. /yohana/ Ankit Jean, Health Hospice Care Sales Consultant DIGITAL MARKETING SPECIALIST,PRIMARY CARE Signed: 04/13/2024 10:06 04/13/2024 ADDENDUM STATUS: COMPLETED COVID-19 Immunization: Moderna Monovalent (Spikevax) Administered: COVID-19 (MODERNA), MRNA, LNP-S, PF, 50 MCG/0.5 ML (AGES 12+ YEARS) Date Administered: Apr 13, 2024 10:30 Series: Booster Property Inspector: MODERNA [employer] Lot: [id number] Exp Date: September 05, 2024 [facility]: [id number] Admin Route/Site: INTRAMUSCULAR/RIGHT DELTOID Dosage: 0.5mL Vaccine Information Statement(s): COVID-19 MRNA VACCINE (12+ YRS) VIS Jan 23, 2024 ([facility]) Order By: Policy Administered By: Genevieve Calle Vaccine administered without complications. Influenza Immunization: Influenza, High-Dose, Trivalent, Preservative Free (Fluzone-Syringe) Administered: INFLUENZA, HIGH-DOSE, TRIVALENT, PF Date Administered: Apr 13, 2024 10:30 Property Inspector: [employer] PASTE[employer] Lot: [id number] Exp Date: Oct 05, 2024 [facility]: [id number] Admin Route/Site: INTRAMUSCULAR/LEFT DELTOID Dosage: 0.5mL Vaccine Information Statement(s): INFLUENZA(FLU) VACC(INACTIVATED OR RECOMBINANT)VIS Nov 11, 2020 ([facility]O) Order By: Policy Administered By: Genevieve Calle The Influenza Vaccine Information Statement (VIS) was [...] consent to receive the vaccine. /yohana/ Genevieve Calle MSN RN CNL Primary Care RN Signed: 04/13/2024 10:49 [facility]
== END 2024-08-04 13:17 | disposition home or self-care (01) ==
LOC: HO.RESP 13:16
PROVIDERS: PCP Nurse Practitioner Family; Referring Provider Internal Medicine Pulmonary Disease; Visit Provider Nurse Practitioner Family
DX: R05.9 Cough, unspecified (principal); R06.09 Other forms of dyspnea; J44.9 Chronic obstructive pulmonary disease, unspecified
CPT/HCPCS: 71046; 94010; 94640; 94727; 94729

== ENCOUNTER → 2024-08-04 13:21 | Outpatient (BNV) | payer OTHER, SELFPAY | PROVIDERS: PCP Nurse Practitioner Family; Visit Provider Radiology Diagnostic Radiology | DX: R05.9 Cough, unspecified (principal) | CPT/HCPCS: 71046 ==

== ENCOUNTER → 2024-08-04 13:50 | Outpatient (BNV) | payer OTHER, SELFPAY | PROVIDERS: PCP Nurse Practitioner Family; Visit Provider Internal Medicine Pulmonary Disease | DX: R06.09 Other forms of dyspnea (principal); R05.9 Cough, unspecified | CPT/HCPCS: 94060; 94727; 94729 ==

== ENCOUNTER 2024-08-14 15:03 | Outpatient (AMB) | payer OTHER, SELFPAY ==
--- NOTE | 2024-08-14 13:40 | A.OFFVIS_ITS ---
Vital Signs 08/14/24 15:08 Height 5 ft 10 in Weight 219 lb 8 oz BMI 31.5 BP 160/88 H Blood Pressure Location Lt brachial Position Sitting Pulse 80 Pulse Source Pulse Oximeter Pulse Oximetry (%) 96 Oxygen Delivery Method Room Air Intake Visit Reasons: cough/copd Allergies Seasonal Allergies Allergy (Verified 08/14/24 15:11) Nasal congestion HPI HPI cough/copd: Details: Hiren is a pleasant 84 year old male, former smoker, quit 1972 with less than 10 pack year history with underlying MONIQUE on CPAP, HTN, CKDIII, PVD, CAD s/p stent, h/o prostate cancer s/p radiation >20 years ago and h/o melanoma of chest s/p resection, under the care of dermatology. He was initially referred by PCP for pulmonary evaluation for ongoing productive cough thought to be related to rhinitis started on Singulair and Flonase, however only minimally improved. He also reports ongoing dyspnea on exertion. Denies wheezing or chest tightness. He has also been prescribed albuterol MDI, which he initially thought he was benefitting from, now reporting no change in dyspnea/cough. He also endorses intermittent reflux symptoms despite omeprazole. He does have an upcoming appt with cardiology to assess for any underlying cardiac conrtibution to dyspnea. Today he presents to review PFT. [facility] Medical History (Updated 08/17/24 @ 11:42 by Soha Boles NP) Anemia Hx of malignant melanoma Peripheral artery disease Sleep apnea Environmental allergies Arthritis History of prostate cancer Angina pectoris CAD (coronary artery disease) Hyperlipidemia Hypertension Diabetes Surgical History H/O heart artery stent (~2004) S/P aortogram with runoff H/O arthroscopy of right knee S/P cardiac cath Hx of colonoscopy Hx of foot surgery Hx of appendectomy Hx of cholecystectomy Hx of tonsillectomy Social History Household Members: Spouse Housing: House Are you a primary medical care evaluation specialist to a significant other at home: Yes ( AT HOME HAD CVA) Do you presently have visiting nurse or other home services: No Alcohol intake: never Patient Tobacco Use Status: Former Tobacco user Tobacco use type: Cigarette Cigarettes Per Day: 6 Years Smoked: 6 cigarettes per day x10yrs. Quit 50 yrs ago. Second Hand Smoke Exposure: No Advance Directives Date on File: 03/02/23 service: Yes Review of Systems Const Denies chills, Denies excessive sweating, Denies fever(s), Denies headache(s) and Denies night sweats Eyes Denies dry eyes, Denies irritation and Denies itchy eyes ENT Reports Normal hearing present, Denies headache(s) and Reports post nasal drip Card Denies chest pain, Denies chest pain at rest, Denies chest pain with activity, Denies claudication, Denies leg edema, Reports dyspnea on exertion, Denies orthopnea and Denies paroxysmal nocturnal dyspnea Resp Denies chest congestion, Reports cough, Denies excessive phlegm production, Denies pain on inspiration, Denies pain with cough, Reports dyspnea on exertion, Denies stridor and Denies wheezing Musc Denies myalgias Neuro Reports Normal hearing present and Denies headache(s) Endo Denies excessive sweating Brad/Lymph Denies lymphadenopathy Aller/Immun Denies itchy eyes, Denies seasonal rhinorrhea and Denies wheezing Physical Exam Vital Signs: Last Vital Signs Pulse 80 08/14/24 15:08 BP 160/88 H 08/14/24 15:08 Pulse Ox 96 08/14/24 15:08 Oxygen Delivery Method Room Air 08/14/24 15:08 BMI result Body Mass Index 31.5 Const General: cooperative, healthy appearing, comfortable, no acute distress, well developed and alert Nutritional Appearance: obese Orientation/consciousness: patient oriented x3 Limitations: no limitations HEENT Head: Yes normal to inspection, Yes normocephalic and Yes atraumatic Ears: hearing grossly normal bilaterally and external ears normal Eyes General: appearance normal, both eyes and all related structures Eyelids: Yes eyelids normal Sclerae: sclerae normal EOM: EOMs intact bilaterally Neck Neck: Yes normal visual inspection and Yes no lymphadenopathy Lymphatic: no lymphadenopathy noted Chest Chest palpation & inspection: normal inspection of the chest Resp Effort & Inspection: normal respiratory effort, able to speak in complete sentences, no audible wheezes, no cough, no stridor, not tachypneic, no tripod positioning and no use of accessory muscles Auscultation: clear to auscultation bilaterally Cardio Jugular venous distension: no JVD Rate: regular rate Rhythm: regular rhythm Skin Other: warm, dry General skin exam: no rashes or lesions noted Neuro General: patient oriented x3 Cranial nerves: Yes Normal hearing present Cognition (Neuro): normal cognition Gait exam (Neuro): Normal gait present Extrem General: Yes normal to inspection, Yes capillary refill normal, Yes no clubbing, cyanosis or edema and Yes no pedal edema Psych Appearance: grossly normal and well kempt Speech and movement: Normal speech and movement present and Clear speech present Affect: normal affect Attitude: cooperative Thought process: Normal thought process present Thought content: Normal thought content present Insight: Good insight present (Psych) Judgement: Good judgement present (Psych) Results Reviewed Results Reviewed: [address] [address] XRay Report Signed Patient: Hiren Chisholm MR#: [id number] : 1940 Acct:[id number] Age/Sex: 84 / M ADM Date: 08/04/24 Loc: HO.RESP Attending Dr: Soha Boles NP Ordering Physician: Soha Boles NP Date of Service: 08/04/24 Procedure(s): XR chest 2V Accession Number(s): [id number] cc: 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 FINDINGS: PA and lateral views of the chest are submitted. The lungs remain hyperinflated, consistent with COPD. There are mild increased interstitial markings without change. No new focal airspace opacity is seen. There is no pleural effusion, pneumothorax, or pulmonary vascular congestion. The heart is normal in size. The aorta is calcified. There is degenerative disc disease of the spine. XR/XR chest 2V IMPRESSION: COPD. No acute cardiopulmonary abnormality. 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 Decreased expiratory reserve volume suggests extrathoracic restriction likely secondary to abdominal obesity. Normal DLCO. CXR revealed hyperinflation, consistent with COPD and mild increased interstitial markings without change. RAST negative. Will send for chest CT for chronic cough to rule out underlying parenchymal conditions, as there were interstitial markings on prior CXR. Will send ipratropium nasal spray to post nasal drip and discussed reflux diet. All questions were answered and patient is in agreement of plan. Will follow up to review results or sooner if needed. Orders: Orders CT chest wo IV con Today R05.9 - Cough, unspecified, R93.89 - Abnormal findings on diagnostic imaging of other specified body structures Medications: New ipratropium bromide administer into each nostril 2 sprays intranasal BID 30 mL 0RF Coding Level of Care Code Est Pt Level 4 (07125) Diagnoses Cough R05.9 Dyspnea on exertion R06.09 Abnormal chest xray R93.89
--- OUTSIDE RECORDS SUMMARY | 2024-08-14 15:07 | XMS_ITS | Continuity of Care Document ---
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 Active Diagnosis [facility] [place] Diagnosis: ICD-10-CM Z46.1 Encounter for fitting and adjustment of hearing aid Active Diagnosis [facility] Diagnosis: ICD-10-CM Z51.81 Encounter for therapeutic drug level monitoring Active Diagnosis [facility] Diagnosis: ICD-10-CM I48.91 Unspecified atrial fibrillation [facility] Diagnosis: ICD-10-CM I10 Essential (primary) hypertension Active Diagnosis [facility] Diagnosis: ICD-10-CM R06.00 Dyspnea, unspecified Active Diagnosis [facility] Diagnosis: ICD-10-CM H90.3 Sensorineural hearing loss, bilateral Active Diagnosis [facility] Diagnosis: ICD-10-CM 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 Diagnosis [facility] Medications Combined list of outpatient medications [...] PASM RESPIR ATORY (INHAL ATION) ACTIVE 04/14/2025 [id number] ELOINA MOORE 2024 1 [facility] APIXABAN 5MG TAB TAKE ONE TABLET BY MOUTH EVERY 12 HOURS ORAL ACTIVE 06/05/2025 [id number] 5 ELOINA MOORE 2024 180 [facility] ATORVASTATI N CA 80MG TAB TAKE ONE-HALF TABLET BY MOUTH ONCE DAILY ORAL SUSPEND ED 04/14/2025 [id number] 5 ELOINA MOORE 2024 45 [facility] ATORVASTATI N CA 80MG TAB TAKE ONE-HALF TABLET BY MOUTH ONCE DAILY ORAL DISCONT INUED 10/16/2024 [id number] 5 ELOINA MOORE 2023 45 [facility] CARVEDILOL 6.25MG TAB TAKE ONE TABLET BY MOUTH TWICE DAILY ORAL DISCONT INUED BY PROVIDE R 04/14/2025 [id number] 5 ELOINA MOORE 2024 180 [facility] [place] CARVEDILOL 6.25MG TAB TAKE ONE TABLET BY MOUTH TWICE DAILY ORAL DISCONT INUED 10/16/2024 [id number] 5 ELOINA MOORE 2023 180 [facility] CLOPIDOGREL BISULFATE 75MG TAB TAKE ONE TABLET BY MOUTH ONCE DAILY ORAL SUSPEND ED 04/14/2025 [id number] 5 ELOINA MOORE 2024 90 [facility] [place] CLOPIDOGREL BISULFATE 75MG TAB TAKE ONE TABLET BY MOUTH ONCE DAILY ORAL DISCONT INUED 10/16/2024 [id number] 5 ELOINA MOORE 2023 90 [facility] [place] FLUTICASONE PROPIONATE 50MCG/SPRAY SOLN,NASAL, 16GM INSTILL 1 SPRAY INTO EACH NOSTRIL TWICE DAILY FOR NASAL IRRITATI ON/INFLA MMATION NASAL ACTIVE 04/14/2025 [id number] 5 ELOINA MOORE 2024 3 [facility] GLIPIZIDE 10MG TAB TAKE ONE TABLET BY MOUTH TWICE DAILY ORAL DISCONT INUED (EDIT) 04/14/2025 [id number] 5 ELOINA MOORE 2024 180 [facility] GLIPIZIDE 10MG TAB TAKE ONE TABLET BY MOUTH TWICE DAILY ORAL DISCONT INUED 10/16/2024 [id number] 5 ELOINA MOORE 2023 180 [facility] [place] GLIPIZIDE 5MG TAB TAKE ONE TABLET BY MOUTH TWICE DAILY ORAL HOLD 07/23/2025 [id number] 5 NOREEN APODACA I Ekaterina 2024 180 [facility] LEVETIRACET AM 500MG TAB TAKE ONE TABLET BY MOUTH TWICE DAILY FOR PARTIAL SEIZURES ORAL ACTIVE 04/14/2025 [id number] 5 ELOINA MOORE [address] [facility] LEVETIRACET AM 750MG TAB TAKE ONE TABLET BY MOUTH TWICE DAILY FOR PARTIAL SEIZURES ORAL DISCONT INUED (EDIT) 10/16/2024 [id number] 4 ELOINA MOORE 2023 180 [facility] LOSARTAN 25MG TAB TAKE ONE TABLET BY MOUTH ONCE DAILY FOR BLOOD PRESSURE /HEART ORAL DISCONT INUED BY PROVIDE R 04/14/2025 [id number] 5 ELOINA MOORE 2024 90 [facility] LOS[place]AN 25MG TAB TAKE ONE TABLET BY MOUTH ONCE DAILY FOR BLOOD PRESSURE /HEART ORAL DISCONT INUED 10/16/2024 [id number] 5 ELOINA MOORE 2023 90 [facility] METOPROLOL SUCCINATE 25MG TAB,SA TAKE ONE TABLET BY MOUTH ONCE DAILY FOR BLOOD PRESSURE /HEART ORAL ACTIVE 06/04/2025 [id number] 5 ELOINA MOORE 2024 90 [facility] MONTELUKAST NA 10MG TAB TAKE ONE TABLET BY MOUTH ONCE DAILY FOR ASTHMA ORAL ACTIVE 04/14/2025 [id number] 5 ELOINA MOORE 2024 90 [facility] MONTELUKAST NA 10MG TAB TAKE ONE TABLET BY MOUTH ONCE DAILY FOR ASTHMA ORAL DISCONT INUED 10/16/2024 [id number] 4 ELOINA MOORE 2023 90 [facility] OMEPRAZOLE 20MG CAP,EC TAKE TWO CAPSULES BY MOUTH TWICE DAILY BEFORE A MEAL ORAL SUSPEND ED 04/14/2025 [id number] 5 ELOINA MOORE 2024 360 [facility] OMEPRAZOLE 20MG CAP,EC TAKE TWO CAPSULES BY MOUTH TWICE DAILY BEFORE A MEAL ORAL DISCONT INUED 10/16/2024 [id number] 5 ELOINA MOORE 2023 360 [facility] SEMAGLUTIDE 0.25MG/0.37 5ML INJ,SOLN,PE N,3ML INJECT 0.25MG SUBCUTAN EOUSLY ONCE A WEEK FOR 4 WEEKS, AND INJECT 0.5MG ONCE A WEEK FOR 2 WEEKS FOR TYPE 2 DIABETES MELLITUS SUBCUT ANEOUS ACTIVE 09/02/2024 [id number] 5 NOREEN APODACA 2024 1 [facility] SERTRALINE HCL 50MG TAB TAKE ONE-HALF TABLET BY MOUTH ONCE DAILY ORAL SUSPEND ED 04/14/2025 [id number] 5 ELOINA MOORE 2024 45 [facility] SERTRALINE HCL 50MG TAB TAKE ONE-HALF TABLET BY MOUTH ONCE DAILY ORAL DISCONT INUED 10/16/2024 [id number] 5 ELOINA MOORE 2023 45 [facility] SUCRALFATE 1GM TAB TAKE ONE TABLET BY MOUTH TWICE DAILY NEEDED FOR ULCER ORAL ACTIVE 10/16/2024 [id number] 5 ELOINA MOORE 2023 180 [facility] Allergies, Adverse Reactions, Alerts Combined list of allergies from Department of Defense and Veterans Affairs facilities. It does not include entries that were removed or entered in error. Substance Category Reaction Severity Reaction type Status Date Reported Comments Source METFORMIN Propensity to adverse reactions to drug (finding) Diarrhea MILD active 5 [facility] Immunizations Combined list of available immunizations from the Department of Defense and Veterans Affairs facilities. Immunization Series Date Given Administered By Site Reaction Lot Number CVX Code Drug Appeals Board Referee Status Comments Source COVID-19 (MODERNA), MRNA, LNP-S, PF, 50 MCG/0.5 ML (AGES 12+ YEARS) 2024 KRISTINA CALLE CORINNA RIGHT DELTO ID [id number] 312 complet ed Booster for Series, ADMINISTE RED AT MS, [facility] INFLUENZA, HIGH-DOSE, TRIVALENT, PF 2024 KRISTINA CALLE CORINNA LEFT DELTO ID [id number] 135 complet ed [facility]ISTE [facility] INFLUENZA, UNSPECIFIED FORMULATION 2022 88 complet ed HISTORICA L INFORMATI ON - FROM OTHER REGISTRY, [facility] Results Combined list of recent chemistry, [...] Mar 26, 2024 03:22 PM Reporting Lab: [facility] [address] [address] Performing Lab: [facility] [address] [address] [facility] CBC ERYTHROCYTE S [#/VOLUME] IN BLOOD BY AUTOMATED COUNT 3.94 10*6/u L 4.23 - 5.66 05/20 L Specimen Type: BLOOD No comment entered. Ordering Provider: LIAM MOORE Report Released Date/Time: Mar 26, 2024 03:22 PM Reporting Lab: [facility] [address] [address] Performing Lab: [facility] [address] [address] [facility] CBC HEMOGLOBIN [MASS/VOLUM E] IN BLOOD 11.2 g/dL 12.8 - 17 05/20 L Specimen Type: BLOOD No comment entered. Ordering Provider: LIAM MOORE Report Released Date/Time: Mar 26, 2024 03:22 PM Reporting Lab: [facility] [place] [facility] [address] [address] Performing Lab: [facility] [place] [facility] [address] [address] [facility] CBC HEMATOCRIT [VOLUME FRACTION] OF BLOOD BY AUTOMATED COUNT 33.9 39.2 - 50.4 05/20 L Specimen Type: BLOOD No comment entered. Ordering Provider: LIAM MOORE Report Released Date/Time: Mar 26, 2024 03:22 PM Reporting Lab: [facility] [place] [facility] [address] [address] Performing Lab: [facility] [place] [address] [address] [facility] CBC MCV [ENTITIC VOLUME] BY AUTOMATED COUNT 86.0 fL 82 - 99 05/20 Specimen Type: BLOOD No comment entered. Ordering Provider: LIAM MOORE Report Released Date/Time: Mar 26, 2024 03:22 PM Reporting Lab: [facility] [place] [facility] [address] [address] Performing Lab: [facility] [place] [facility] [address] [address] [facility] [place] [facility] CBC MCHC [MASS/VOLUM E] BY AUTOMATED COUNT 33.0 g/dL 30.8 - 35.1 05/20 Specimen Type: BLOOD No comment entered. Ordering Provider: LIAM MOORE Report Released Date/Time: Mar 26, 2024 03:22 PM Reporting Lab: [facility] [place] [facility] [address] [address] Performing Lab: [facility] [place] [address] [address] [facility] [place] [facility] CBC PLATELETS [#/VOLUME] IN BLOOD BY AUTOMATED COUNT 226 10*3/u L 140 - 360 05/20 Specimen Type: BLOOD No comment entered. Ordering Provider: LIAM MOORE Report Released Date/Time: Mar 26, 2024 03:22 PM Reporting Lab: [facility] [place] [address] [address] Performing Lab: [facility] [place] [facility] [address] [address] [facility] [facility] CBC ERYTHROCYTE DISTRIBUTIO N WIDTH [RATIO] BY AUTOMATED COUNT 14.2 12.0 - 16.0 05/20 Specimen Type: BLOOD No comment entered. Ordering Provider: LIAM MOORE Report Released Date/Time: Mar 26, 2024 03:22 PM Reporting Lab: [facility] [place] [address] [address] Performing Lab: [facility] [place] [facility] [address] [address] [facility] [place] [facility] CBC MCH [ENTITIC MASS] BY AUTOMATED COUNT 28.4 pg 26.2 - 32.6 05/20 Specimen Type: BLOOD No comment entered. Ordering Provider: LIAM MOORE Report Released Date/Time: Mar 26, 2024 03:22 PM Reporting Lab: [facility] [place] [address] [address] Performing Lab: [facility] [place] [address] [address] [facility] [place] [facility] LIPID PANEL, NON FASTING CHOLESTEROL [MASS/VOLUM E] IN SERUM OR PLASMA 141 mg/dL 05/20 Specimen Type: SERUM Comment: *UREA NITROGEN Not Performed: May 20, 2024@15:11 by [id number] *INVESTIGATION SPECIALIST Reason: DUP *GLUCOSE Not Performed: May 20, 2024@15:11 by [id number] *INVESTIGATION SPECIALIST Reason: DUP *SODIUM Not Performed: May 20, 2024@15:11 by [id number] *INVESTIGATION SPECIALIST Reason: DUP *POTASSIUM Not Performed: May 20, 2024@15:11 by [id number] *INVESTIGATION SPECIALIST Reason: DUP *CHLORIDE Not Performed: May 20, 2024@15:11 by [id number] *INVESTIGATION SPECIALIST Reason: DUP *CO2 Not Performed: May 20, 2024@15:11 by [id number] *INVESTIGATION SPECIALIST Reason: DUP *CREATININE (eGFR 2020) Not Performed: May 20, 2024@15:11 by [id number] *INVESTIGATION SPECIALIST Reason: DUP Ordering Provider: LIAM MOORE Report Released Date/Time: Mar 26, 2024 03:22 PM Reporting Lab: [facility] [place] [facility] [address] [address] Performing Lab: [facility] [place] [facility] [address] [address] [facility] [place] [facility] LIPID PANEL, NON FASTING TRIGLYCERID E [MASS/VOLUM E] IN SERUM OR PLASMA 205 mg/dL 0 - 150 05/20 H Specimen Type: SERUM Comment: *UREA NITROGEN Not Performed: May 20, 2024@15:11 by [id number] *INVESTIGATION SPECIALIST Reason: DUP *GLUCOSE Not Performed: May 20, 2024@15:11 by [id number] *INVESTIGATION SPECIALIST Reason: DUP *SODIUM Not Performed: May 20, 2024@15:11 by [id number] *INVESTIGATION SPECIALIST Reason: DUP *POTASSIUM Not Performed: May 20, 2024@15:11 by [id number] *INVESTIGATION SPECIALIST Reason: DUP *CHLORIDE Not Performed: May 20, 2024@15:11 by [id number] *INVESTIGATION SPECIALIST Reason: DUP *CO2 Not Performed: May 20, 2024@15:11 by [id number] *INVESTIGATION SPECIALIST Reason: DUP *CREATININE (eGFR 2020) Not Performed: May 20, 2024@15:11 by [id number] *INVESTIGATION SPECIALIST Reason: DUP Ordering Provider: LIAM MOORE Report Released Date/Time: Mar 26, 2024 03:22 PM Reporting Lab: [facility] [place] [facility] [address] [address] Performing Lab: [facility] [place] [facility] [address] [address] [facility] [place] [facility] LIPID PANEL, NON FASTING CHOLESTEROL IN LDL [MASS/VOLUM E] IN SERUM OR PLASMA BY CALCULATION 57 mg/dL 0 - 129 05/20 Specimen Type: SERUM Comment: *UREA NITROGEN Not Performed: May 20, 2024@15:11 by [id number] *INVESTIGATION SPECIALIST Reason: DUP *GLUCOSE Not Performed: May 20, 2024@15:11 by [id number] *INVESTIGATION SPECIALIST Reason: DUP *SODIUM Not Performed: May 20, 2024@15:11 by [id number] *INVESTIGATION SPECIALIST Reason: DUP *POTASSIUM Not Performed: May 20, 2024@15:11 by [id number] *INVESTIGATION SPECIALIST Reason: DUP *CHLORIDE Not Performed: May 20, 2024@15:11 by [id number] *INVESTIGATION SPECIALIST Reason: DUP *CO2 Not Performed: May 20, 2024@15:11 by [id number] *INVESTIGATION SPECIALIST Reason: DUP *CREATININE (eGFR 2020) Not Performed: May 20, 2024@15:11 by [id number] *INVESTIGATION SPECIALIST Reason: DUP Ordering Provider: LIAM MOORE Report Released Date/Time: Mar 26, 2024 03:22 PM Reporting Lab: [facility] [address] [address] Performing Lab: [facility] [address] [address] [facility] LIPID PANEL, NON FASTING CHOLESTEROL .TOTAL/CHOL ESTEROL IN HDL [MASS RATIO] IN SERUM OR PLASMA 3.3 05/20 Specimen Type: SERUM Comment: *UREA NITROGEN Not Performed: May 20, 2024@15:11 by [id number] *INVESTIGATION SPECIALIST Reason: DUP *GLUCOSE Not Performed: May 20, 2024@15:11 by [id number] *INVESTIGATION SPECIALIST Reason: DUP *SODIUM Not Performed: May 20, 2024@15:11 by [id number] *INVESTIGATION SPECIALIST Reason: DUP *POTASSIUM Not Performed: May 20, 2024@15:11 by [id number] *INVESTIGATION SPECIALIST Reason: DUP *CHLORIDE Not Performed: May 20, 2024@15:11 by [id number] *INVESTIGATION SPECIALIST Reason: DUP *CO2 Not Performed: May 20, 2024@15:11 by [id number] *INVESTIGATION SPECIALIST Reason: DUP *CREATININE (eGFR 2020) Not Performed: May 20, 2024@15:11 by [id number] *INVESTIGATION SPECIALIST Reason: DUP Ordering Provider: LIAM MOORE Report Released Date/Time: Mar 26, 2024 03:22 PM Reporting Lab: [facility] [place] [facility] [address] [address] Performing Lab: [facility] [place] [facility] [address] [address] [facility] [place] [facility] LIPID PANEL, NON FASTING CHOLESTEROL IN HDL [MASS/VOLUM E] IN SERUM OR PLASMA 43 mg/dL 40 - 60 05/20 Specimen Type: SERUM Comment: *UREA NITROGEN Not Performed: May 20, 2024@15:11 by [id number] *INVESTIGATION SPECIALIST Reason: DUP *GLUCOSE Not Performed: May 20, 2024@15:11 by [id number] *INVESTIGATION SPECIALIST Reason: DUP *SODIUM Not Performed: May 20, 2024@15:11 by [id number] *INVESTIGATION SPECIALIST Reason: DUP *POTASSIUM Not Performed: May 20, 2024@15:11 by [id number] *INVESTIGATION SPECIALIST Reason: DUP *CHLORIDE Not Performed: May 20, 2024@15:11 by [id number] *INVESTIGATION SPECIALIST Reason: DUP *CO2 Not Performed: May 20, 2024@15:11 by [id number] *INVESTIGATION SPECIALIST Reason: DUP *CREATININE (eGFR 2020) Not Performed: May 20, 2024@15:11 by [id number] *INVESTIGATION SPECIALIST Reason: DUP Ordering Provider: LIAM MOORE Report Released Date/Time: Mar 26, 2024 03:22 PM Reporting Lab: [facility] [place] [address] [address] Performing Lab: [facility] [place] [address] [address] [facility] [place] [facility] LIVER FUNCTION PROTEIN [MASS/VOLUM E] IN SERUM OR PLASMA 6.7 g/dL 6.0 - 8.3 05/20 Specimen Type: SERUM Comment: *UREA NITROGEN Not Performed: May 20, 2024@15:11 by [id number] *INVESTIGATION SPECIALIST Reason: DUP *GLUCOSE Not Performed: May 20, 2024@15:11 by [id number] *INVESTIGATION SPECIALIST Reason: DUP *SODIUM Not Performed: May 20, 2024@15:11 by [id number] *INVESTIGATION SPECIALIST Reason: DUP *POTASSIUM Not Performed: May 20, 2024@15:11 by [id number] *INVESTIGATION SPECIALIST Reason: DUP *CHLORIDE Not Performed: May 20, 2024@15:11 by [id number] *INVESTIGATION SPECIALIST Reason: DUP *CO2 Not Performed: May 20, 2024@15:11 by [id number] *INVESTIGATION SPECIALIST Reason: DUP *CREATININE (eGFR 2020) Not Performed: May 20, 2024@15:11 by [id number] *INVESTIGATION SPECIALIST Reason: DUP Ordering Provider: LIAM MOORE Report Released Date/Time: Mar 26, 2024 03:22 PM Reporting Lab: [facility] [place] [facility] [address] [address] Performing Lab: [facility] [place] [facility] [address] [address] [facility] LIVER FUNCTION ALBUMIN [MASS/VOLUM E] IN SERUM OR PLASMA 3.8 g/dL 3.5 - 5.0 05/20 Specimen Type: SERUM Comment: *UREA NITROGEN Not Performed: May 20, 2024@15:11 by [id number] *INVESTIGATION SPECIALIST Reason: DUP *GLUCOSE Not Performed: May 20, 2024@15:11 by [id number] *INVESTIGATION SPECIALIST Reason: DUP *SODIUM Not Performed: May 20, 2024@15:11 by [id number] *INVESTIGATION SPECIALIST Reason: DUP *POTASSIUM Not Performed: May 20, 2024@15:11 by [id number] *INVESTIGATION SPECIALIST Reason: DUP *CHLORIDE Not Performed: May 20, 2024@15:11 by [id number] *INVESTIGATION SPECIALIST Reason: DUP *CO2 Not Performed: May 20, 2024@15:11 by [id number] *INVESTIGATION SPECIALIST Reason: DUP *CREATININE (eGFR 2020) Not Performed: May 20, 2024@15:11 by [id number] *INVESTIGATION SPECIALIST Reason: DUP Ordering Provider: LIAM MOORE Report Released Date/Time: Mar 26, 2024 03:22 PM Reporting Lab: [facility] MASSUSE[address] [address] Performing Lab: [facility] [place] [address] [address] [facility] LIVER FUNCTION ALKALINE PHOSPHATASE [ENZYMATIC ACTIVITY/VO LUME] IN SERUM OR PLASMA 83 U/L 40 - 150 05/20 Specimen Type: SERUM Comment: *UREA NITROGEN Not Performed: May 20, 2024@15:11 by [id number] *INVESTIGATION SPECIALIST Reason: DUP *GLUCOSE Not Performed: May 20, 2024@15:11 by [id number] *INVESTIGATION SPECIALIST Reason: DUP *SODIUM Not Performed: May 20, 2024@15:11 by [id number] *INVESTIGATION SPECIALIST Reason: DUP *POTASSIUM Not Performed: May 20, 2024@15:11 by [id number] *INVESTIGATION SPECIALIST Reason: DUP *CHLORIDE Not Performed: May 20, 2024@15:11 by [id number] *INVESTIGATION SPECIALIST Reason: DUP *CO2 Not Performed: May 20, 2024@15:11 by [id number] *INVESTIGATION SPECIALIST Reason: DUP *CREATININE (eGFR 2020) Not Performed: May 20, 2024@15:11 by [id number] *INVESTIGATION SPECIALIST Reason: DUP Ordering Provider: LIAM MOORE Report Released Date/Time: Mar 26, 2024 03:22 PM Reporting Lab: [address] [address] Performing Lab: [facility] [address] [address] [facility] LIVER FUNCTION ASPARTATE AMINOTRANSF ERASE [ENZYMATIC ACTIVITY/VO LUME] IN SERUM OR PLASMA 13 U/L 5 - 34 05/20 Specimen Type: SERUM Comment: *UREA NITROGEN Not Performed: May 20, 2024@15:11 by [id number] *INVESTIGATION SPECIALIST Reason: DUP *GLUCOSE Not Performed: May 20, 2024@15:11 by [id number] *INVESTIGATION SPECIALIST Reason: DUP *SODIUM Not Performed: May 20, 2024@15:11 by [id number] *INVESTIGATION SPECIALIST Reason: DUP *POTASSIUM Not Performed: May 20, 2024@15:11 by [id number] *INVESTIGATION SPECIALIST Reason: DUP *CHLORIDE Not Performed: May 20, 2024@15:11 by [id number] *INVESTIGATION SPECIALIST Reason: DUP *CO2 Not Performed: May 20, 2024@15:11 by [id number] *INVESTIGATION SPECIALIST Reason: DUP *CREATININE (eGFR 2020) Not Performed: May 20, 2024@15:11 by [id number] *INVESTIGATION SPECIALIST Reason: DUP Ordering Provider: LIAM MOORE Report Released Date/Time: Mar 26, 2024 03:22 PM Reporting Lab: [facility] [place] [facility] [address] [address] Performing Lab: [facility] [place] [facility] [address] [address] [facility] [place] [facility] LIVER FUNCTION ALANINE AMINOTRANSF ERASE [ENZYMATIC ACTIVITY/VO LUME] IN SERUM OR PLASMA 15 U/L 05/20 Specimen Type: SERUM Comment: *UREA NITROGEN Not Performed: May 20, 2024@15:11 by [id number] *INVESTIGATION SPECIALIST Reason: DUP *GLUCOSE Not Performed: May 20, 2024@15:11 by [id number] *INVESTIGATION SPECIALIST Reason: DUP *SODIUM Not Performed: May 20, 2024@15:11 by [id number] *INVESTIGATION SPECIALIST Reason: DUP *POTASSIUM Not Performed: May 20, 2024@15:11 by [id number] *INVESTIGATION SPECIALIST Reason: DUP *CHLORIDE Not Performed: May 20, 2024@15:11 by [id number] *INVESTIGATION SPECIALIST Reason: DUP *CO2 Not Performed: May 20, 2024@15:11 by [id number] *INVESTIGATION SPECIALIST Reason: DUP *CREATININE (eGFR 2020) Not Performed: May 20, 2024@15:11 by [id number] *INVESTIGATION SPECIALIST Reason: DUP Ordering Provider: LIAM MOORE Report Released Date/Time: Mar 26, 2024 03:22 PM Reporting Lab: [facility] [place] [facility] [address] [address] Performing Lab: [facility] [place] [facility] [address] [phone] [facility] [place] [facility] LIVER FUNCTION BILIRUBIN.T OTAL [MASS/VOLUM E] IN SERUM OR PLASMA 0.4 mg/dL 0.2 - 1.2 05/20 Specimen Type: SERUM Comment: *UREA NITROGEN Not Performed: May 20, 2024@15:11 by [id number] *INVESTIGATION SPECIALIST Reason: DUP *GLUCOSE Not Performed: May 20, 2024@15:11 by [id number] *INVESTIGATION SPECIALIST Reason: DUP *SODIUM Not Performed: May 20, 2024@15:11 by [id number] *INVESTIGATION SPECIALIST Reason: DUP *POTASSIUM Not Performed: May 20, 2024@15:11 by [id number] *INVESTIGATION SPECIALIST Reason: DUP *CHLORIDE Not Performed: May 20, 2024@15:11 by [id number] *INVESTIGATION SPECIALIST Reason: DUP *CO2 Not Performed: May 20, 2024@15:11 by [id number] *INVESTIGATION SPECIALIST Reason: DUP *CREATININE (eGFR 2020) Not Performed: May 20, 2024@15:11 by [id number] *INVESTIGATION SPECIALIST Reason: DUP Ordering Provider: LIAM MOORE Report Released Date/Time: Mar 26, 2024 03:22 PM Reporting Lab: [facility] [place] [address] [id number] Performing Lab: [facility] [place] [address] [phone] [facility] PT & INR (PROTIME) INR IN PLATELET POOR PLASMA BY COAGULATION ASSAY 1.5 05/20 Specimen Type: PLASMA No comment entered. Ordering Provider: LIAM MOORE Report Released Date/Time: Mar 26, 2024 03:22 PM Reporting Lab: [facility] [place] [facility] [address] [address] Performing Lab: [facility] [place] [address] [address] [facility] [place] [facility] PT & INR (PROTIME) PROTHROMBIN TIME (PT) 16.0 s 10.0 - 13.1 05/20 H Specimen Type: PLASMA No comment entered. Ordering Provider: LIAM MOORE Report Released Date/Time: Mar 26, 2024 03:22 PM Reporting Lab: [facility] [place] [address] [address] Performing Lab: [facility] [place] [address] [address] [facility] [place] [facility] HEMOGLOBI N A1C PANEL HEMOGLOBIN A1C/HEMOGLO BIN.TOTAL [...] 26, 2024 03:22 PM Reporting Lab: [address] [address] Performing Lab: [address] [address] [facility] BASIC METABOLIC PANEL (non-fast ing) UREA NITROGEN [MASS/VOLUM E] IN SERUM OR PLASMA 17 mg/dL 7 - 25 05/20 Specimen Type: SERUM No comment entered. Ordering Provider: ADAIR APODACA Report Released Date/Time: May 18, 2024 08:18 AM Reporting Lab: [address] [address] Performing Lab: [address] [address] [facility] BASIC METABOLIC PANEL (non-fast ing) GLUCOSE [MASS/VOLUM E] IN SERUM OR PLASMA 158 mg/dL 65 - 100 05/20 H Specimen Type: SERUM No comment entered. Ordering Provider: ADAIR APODACA Report Released Date/Time: May 18, 2024 08:18 AM Reporting Lab: [address] [address] Performing Lab: [address] [address] [facility] BASIC METABOLIC PANEL (non-fast ing) SODIUM [MOLES/VOLU ME] IN SERUM OR PLASMA 137 mmol/L 135 - 145 05/20 Specimen Type: SERUM No comment entered. Ordering Provider: ADAIR APODACA Report Released Date/Time: May 18, 2024 08:18 AM Reporting Lab: [facility] [place] [address] [address] Performing Lab: [facility]USE[address] [address] [facility]PITALUSE [facility] BASIC METABOLIC PANEL (non-fast ing) POTASSIUM [MOLES/VOLU ME] IN SERUM OR PLASMA 4.1 mmol/L 3.5 - 5.0 05/20 Specimen Type: SERUM No comment entered. Ordering Provider: ADAIR APODACA Report Released Date/Time: May 18, 2024 08:18 AM Reporting Lab: [facility]ITALUSE[address] [address] Performing Lab: [facility]ITAL[facility] [address] [address] [facility] TRN [facility]ITALUSE [facility] BASIC METABOLIC PANEL (non-fast ing) CHLORIDE [MOLES/VOLU ME] IN SERUM OR PLASMA 106 mmol/L 100 - 110 05/20 Specimen Type: SERUM No comment entered. Ordering Provider: ADAIR APODACA Report Released Date/Time: May 18, 2024 08:18 AM Reporting Lab: [facility]N [facility]ITALUSE[address] [address] Performing Lab: [facility]ITALUS[facility] [address] [address] [facility] TRN [facility]ITALUSE [facility] BASIC METABOLIC PANEL (non-fast ing) CARBON DIOXIDE, TOTAL [MOLES/VOLU ME] IN SERUM OR PLASMA 24 meq/L 20 - 30 05/20 Specimen Type: SERUM No comment entered. Ordering Provider: ADAIR APODACA Report Released Date/Time: May 18, 2024 08:18 AM Reporting Lab: [facility]ITALUSE[address] [address] Performing Lab: [facility]ITALUSE[address] [address] [facility] [place] [facility] BASIC METABOLIC PANEL (non-fast ing) CREATININE [MASS/VOLUM E] IN SERUM OR PLASMA 0.83 mg/dL 0.50 - 1.40 05/20 Specimen Type: SERUM No comment entered. Ordering Provider: ADAIR APODACA Report Released Date/Time: May 18, 2024 08:18 AM Reporting Lab: [facility] [place] [facility] [address] [address] Performing Lab: [facility] [place] [facility] [address] [address] [facility]N [place] [facility] BASIC METABOLIC PANEL (non-fast ing) GLOMERULAR FILTRATION RATE/1.73 SQ M.PREDICTED [VOLUME RATE/AREA] IN SERUM, PLASMA OR BLOOD BY CREATININE- BASED FORMULA (CKD-EPI 2020) 86 mL/min 60 05/20 Specimen Type: SERUM No comment entered. Ordering Provider: ADAIR APODACA Report Released Date/Time: May 18, 2024 08:18 AM Reporting Lab: [facility] [place] [address] [address] Performing Lab: [facility] [address] [address] [facility]USE [facility] MICROALBU MIN CREATININ E RATIO PANEL MICROALBUMI N/CREATININ E [MASS RATIO] IN URINE 19.1 mg/g 0 - 29.9 05/20 Specimen Type: URINE No comment entered. Ordering Provider: ADAIR APODACA Report Released Date/Time: May 18, 2024 08:18 AM Reporting Lab: [facility] [place] [address] [address] Performing Lab: [facility] [place] [address] [address] [facility]ANRL [facility]ITALN [facility]ITALUSE [facility] MICROALBU MIN CREATININ E RATIO PANEL MICROALBUMI N [MASS/VOLUM E] IN URINE 1.5 mg/dL 05/20 Specimen Type: URINE No comment entered. Ordering Provider: ADAIR APODACA Report Released Date/Time: May 18, 2024 08:18 AM Reporting Lab: [facility] [place] [facility] [address] [address] Performing Lab: [facility] [place] [facility] [address] [address] [facility] [place] [facility] MICROALBU MIN CREATININ E RATIO PANEL CREATININE [MASS/VOLUM E] IN URINE 78.41 mg/dL 05/20 Specimen Type: URINE No comment entered. Ordering Provider: ADAIR APODACA Report Released Date/Time: May 18, 2024 08:18 AM Reporting Lab: [facility] [place] [place] [facility] [address] [address] Performing Lab: [facility] [place] [place] [facility] [address] [address] [facility] [place] [facility] BASIC METABOLIC PANEL (non-fast ing) UREA NITROGEN [MASS/VOLUM E] IN SERUM OR PLASMA 25 mg/dL 7 - 25 10/15 Specimen Type: SERUM No comment entered. Ordering Provider: LIAM MOORE Report Released Date/Time: Oct 02, 2023 11:31 AM Reporting Lab: [facility] [place] [facility] [address] [address] Performing Lab: [facility] [place] [facility] [address] [address] [facility] [place] [facility] BASIC METABOLIC PANEL (non-fast ing) GLUCOSE [MASS/VOLUM E] IN SERUM OR PLASMA 121 mg/dL 65 - 100 10/15 H Specimen Type: SERUM No comment entered. Ordering Provider: LIAM MOORE Report Released Date/Time: Oct 02, 2023 11:31 AM Reporting Lab: [facility] [place] [facility] [address] [address] Performing Lab: [facility] [place] [facility] [address] [address] [facility] [place] [facility] BASIC METABOLIC PANEL (non-fast ing) SODIUM [MOLES/VOLU ME] IN SERUM OR PLASMA 135 mmol/L 135 - 145 10/15 Specimen Type: SERUM No comment entered. Ordering Provider: LIAM MOROE Report Released Date/Time: Oct 02, 2023 11:31 AM Reporting Lab: [facility]ANRL TRN [facility]OSPITALUSETS [address] [address] Performing Lab: [facility] MICHIGANRDEKALB REGIONAL MEDICAL CENTERTRN [facility] HOSPITALUSE[address] [address] [facility]ANRHUNTSVILLE HOSPITAL SYSTEMN THE [facility] HOSPITALUSE [facility] BASIC METABOLIC PANEL (non-fast ing) POTASSIUM [MOLES/VOLU ME] IN SERUM OR PLASMA 4.1 mmol/L 3.5 - 5.0 10/15 Specimen Type: SERUM No comment entered. Ordering Provider: LIAM MOORE Report Released Date/Time: Oct 02, 2023 11:31 AM Reporting Lab: [facility]ANRHUNTSVILLE HOSPITAL SYSTEMN [address] [address] Performing Lab: [facility] MICHIGANRDEKALB REGIONAL MEDICAL CENTERTRN [facility] HOSPITALUSE[address] [address] [facility]N [facility] HOSPITALUSE [facility] BASIC METABOLIC PANEL (non-fast ing) CHLORIDE [MOLES/VOLU ME] IN SERUM OR PLASMA 104 mmol/L 100 - 110 10/15 Specimen Type: SERUM No comment entered. Ordering Provider: LIAM MOORE Report Released Date/Time: Oct 02, 2023 11:31 AM Reporting Lab: [facility]IGANRDEKALB REGIONAL MEDICAL CENTERTRN [facility]OSPITALUSE[address] [address] Performing Lab: [facility]ANRL TRN THE [facility] HOSPITALUSETS [address] [address] [facility]ICHIGANRHUNTSVILLE HOSP[facility] SYSTEMN THE [facility] HOSPITALUSE [facility] BASIC METABOLIC PANEL (non-fast ing) CARBON DIOXIDE, TOTAL [MOLES/VOLU ME] IN SERUM OR PLASMA 21 meq/L 20 - 30 10/15 Specimen Type: SERUM No comment entered. Ordering Provider: LIAM MOORE Report Released Date/Time: Oct 02, 2023 11:31 AM Reporting Lab: [facility]ANRDEKALB REGIONAL MEDICAL CENTERTRN [facility]OSPITALUSE[address] [address] Performing Lab: [facility]ANRL WSTRN [facility]OSPITALUSECATSKILL [facility] [address] [address] [facility]ITALN [facility] BASIC METABOLIC PANEL (non-fast ing) CREATININE [MASS/VOLUM E] IN SERUM OR PLASMA 0.90 mg/dL 0.50 - 1.40 10/15 Specimen Type: SERUM No comment entered. Ordering Provider: LIAM MOORE Report Released Date/Time: Oct 02, 2023 11:31 AM Reporting Lab: [facility]ANRL TRN [facility] HOSPITALUSECATSKILL [facility] [address] [address] Performing Lab: [facility]IGANRHUNTSVILLE HOSP[facility] SYSTEMN [facility] [address] [address] [facility]N [facility] BASIC METABOLIC PANEL (non-fast ing) GLOMERULAR FILTRATION RATE/1.73 SQ M.PREDICTED [VOLUME RATE/AREA] IN SERUM, PLASMA OR BLOOD BY CREATININE- BASED FORMULA (CKD-EPI 2020) 85 mL/min 60 10/15 Specimen Type: SERUM No comment entered. Ordering Provider: LIAM MOORE Report Released Date/Time: Oct 02, 2023 11:31 AM Reporting Lab: [facility]ANRHUNTSVILLE HOSP[facility] SYSTEMN [facility]OSPITALUSECATSK[facility] [address] [address] Performing Lab: [facility]IGANRHUNTSVILLE HOSPITAL SYSTEMN [facility] HOSPITALUSECATSKILL [facility] [address] [address] [facility] LIPID PANEL, NON FASTING CHOLESTEROL [MASS/VOLUM E] IN SERUM OR PLASMA 163 mg/dL 10/15 Specimen Type: SERUM No comment entered. Ordering Provider: LIAM MOORE Report Released Date/Time: Oct 02, 2023 11:31 AM Reporting Lab: [facility]ANRHUNTSVILLE [facility]OSP[facility] SYSTEMN [facility]OSPITALUSECATSK[facility] [address] [address] Performing Lab: [facility]OS[facility]ITALN [facility] HOSPITALUSE[address] [address] [facility] LIPID PANEL, NON FASTING TRIGLYCERID E [MASS/VOLUM E] IN SERUM OR PLASMA 148 mg/dL 0 - 150 10/15 Specimen Type: SERUM No comment entered. Ordering Provider: LIAM MOORE Report Released Date/Time: Oct 02, 2023 11:31 AM Reporting Lab: [facility] [place] [facility] [address] [address] Performing Lab: [facility] [place] [facility] [address] [address] [facility] [place] [facility] LIPID PANEL, NON FASTING CHOLESTEROL IN LDL [MASS/VOLUM E] IN SERUM OR PLASMA BY CALCULATION 86 mg/dL 0 - 129 10/15 Specimen Type: SERUM No comment entered. Ordering Provider: LIAM MOORE Report Released Date/Time: Oct 02, 2023 11:31 AM Reporting Lab: [facility] [place] [facility] [address] [address] Performing Lab: [facility] [place] [place] [facility] [address] [address] [facility] [place] [facility] LIPID PANEL, NON FASTING CHOLESTEROL .TOTAL/CHOL ESTEROL IN HDL [MASS RATIO] IN SERUM OR PLASMA 3.5 10/15 Specimen Type: SERUM No comment entered. Ordering Provider: LIAM MOORE Report Released Date/Time: Oct 02, 2023 11:31 AM Reporting Lab: [facility] [place] [place] [facility] [address] [address] Performing Lab: [facility] [place] [place] [facility] [address] [address] [facility] [place] [facility] LIPID PANEL, NON FASTING CHOLESTEROL IN HDL [MASS/VOLUM E] IN SERUM OR PLASMA 47 mg/dL 40 - 60 10/15 Specimen Type: SERUM No comment entered. Ordering Provider: LIAM MOORE Report Released Date/Time: Oct 02, 2023 11:31 AM Reporting Lab: [facility] [place] [facility] [address] [address] Performing Lab: [facility] [place] [facility] [address] [address] [facility] [place] [facility] LIVER FUNCTION PROTEIN [MASS/VOLUM E] IN SERUM OR PLASMA 6.6 g/dL 6.0 - 8.3 10/15 Specimen Type: SERUM No comment entered. Ordering Provider: LIAM MOORE Report Released Date/Time: Oct 02, 2023 11:31 AM Reporting Lab: [facility] [place] [facility] [address] [address] Performing Lab: [facility] HOSPITALUSETS [facility] [address] [address] [facility]IGANRL WSTRN [facility]KAL[facility] MED[facility] CENTERCHUSE [facility] LIVER FUNCTION ALBUMIN [MASS/VOLUM E] IN SERUM OR PLASMA 3.7 g/dL 3.5 - 5.0 10/15 Specimen Type: SERUM No comment entered. Ordering Provider: LIAM MOORE Report Released Date/Time: Oct 02, 2023 11:31 AM Reporting Lab: [facility]ANRL WSTRN [facility] HOSPITALUSETS [address] [address] Performing Lab: [facility] HOSPITALUSETS [facility] [address] [address] [facility] MICHIGANRL WSTRN [facility]OSPITALUSE [facility] LIVER FUNCTION ALKALINE PHOSPHATASE [ENZYMATIC ACTIVITY/VO LUME] IN SERUM OR PLASMA 86 U/L 40 - 150 10/15 Specimen Type: SERUM No comment entered. Ordering Provider: LIAM MOORE Report Released Date/Time: Oct 02, 2023 11:31 AM Reporting Lab: [facility]ANRL WSTRN [facility] HOSPITALUSETS [address] [address] Performing Lab: [facility] [place] [facility] [address] [address] [facility] MICHIGANRL WSTRN [facility] HOSPITALUSE [facility] LIVER FUNCTION ASPARTATE AMINOTRANSF ERASE [ENZYMATIC ACTIVITY/VO LUME] IN SERUM OR PLASMA 17 U/L 5 - 34 10/15 Specimen Type: SERUM No comment entered. Ordering Provider: LIAM MOORE Report Released Date/Time: Oct 02, 2023 11:31 AM Reporting Lab: [facility] M[facility]ANRL WSTRN THE [facility] HOSPITALUSETS [facility] [address] [address] Performing Lab: [facility] [place] [address] [address] [facility] [place] [facility] LIVER FUNCTION ALANINE AMINOTRANSF ERASE [ENZYMATIC ACTIVITY/VO LUME] IN SERUM OR PLASMA 21 U/L 10/15 Specimen Type: SERUM No comment entered. Ordering Provider: LIAM MOORE Report Released Date/Time: Oct 02, 2023 11:31 AM Reporting Lab: [facility] [place] [facility] [address] [address] Performing Lab: [facility] [place] [facility] [address] [address] [facility] [place] [facility] LIVER FUNCTION BILIRUBIN.T OTAL [MASS/VOLUM E] IN SERUM OR PLASMA 0.4 mg/dL 0.2 - 1.2 10/15 Specimen Type: SERUM No comment entered. Ordering Provider: LIAM MOORE Report Released Date/Time: Oct 02, 2023 11:31 AM Reporting Lab: [facility] [place] [facility] [address] [address] Performing Lab: [facility] [place] [facility] [address] [address] [facility] [place] [facility] Vital Signs Combined list of inpatient and outpatient Vital Signs from Department of Defense and Veterans Affairs, ranging from 12 months to all on record, depending upon the facility. Vital Sign Value Date Comments Source SYSTOLIC BLOOD PRESSURE 184 07/30/19 25 10:04:06 [facility] [place] [facility] DIASTOLIC BLOOD PRESSURE 73 025 10:04:06 [facility] [place] [facility] PULSE OXIMETRY 97 07/29/2024 10:04:06 [facility] [place] [facility] TEMPERATURE 97.4 07/29/2024 10:04:06 [facility] [place] [facility] PULSE 69 07/29/2024 10:04:06 [facility] [place] [facility] RESPIRATION 18 07/29/2024 10:04:06 [facility] [place] [facility] SYSTOLIC BLOOD PRESSURE 136 06/29/19 25 11:29:00 [...] included; 2) Encounters from the Department of [facility] facilities going backup to 280 months. Location Location Details Encounter Type Encounter Number Reason For Visit Attending Provider ADM Date DC Date Status Disposition Source [facility] En[facility] [id number] 07[facility]07 [facility] En[facility] [id number] 07/31 [facility] En[facility] [id number] 08/15 [facility] En[facility] [id number] 08/28 [facility] En[facility] [id number] 09/03 [facility] [id number] 09/15 [facility] En[facility] [id number] 09/15 [facility] OFFICE O/P NEW MOD 45 MIN [id number] Diagnos is: ICD-10- CM I25.10 Athscl heart disease of [place] coronar y artery w/o ang pctrs [employer] MO[employer] 10/15 [facility] En[facility] [id number] 02/19 [facility] En[facility] [id number] 03/12 [facility] En[facility] [id number] [place]A 03/13 [facility] En[facility] [id number] 03/16 [facility] En[facility] [id number] 03/17 [facility] HEARING AID EXAM BOTH EARS [id number] Diagnos is: ICD-10- CM H90.3 Sensori neural hearing loss, bilater al GEOFF KEARNEY 03/20 [facility] En[facility] [id number] 03/24 [facility] OFF[facility]/P EST HI 40 MIN [id number] Diagnos is: ICD-10- CM R06.00 Dyspnea , unspeci fied [employer] 04/13 [facility] En[facility] [id number] [facility] En[facility] [id number] [facility] En[facility] [id number] [facility] HEARING SERVICE [id number] 1. Diagnos is: ICD-10- CM Z46.1 Encount er for fitting and adjustm ent of hearing aid EBONI VICENTE 04/17 [facility] En[facility] [id number] 04/20 [facility] En[facility] [id number] [facility] En[facility] [id number] 04/24 [facility] En[facility] [id number] 04/28 [facility] En[facility] [id number] 05/01 [facility] En[facility] [id number] 05/11 [facility] NQHP OL DIG ASSMT&MGMT 5-10 [id number] Diagnos is: ICD-10- CM I10 Essenti al (primar y) hyperte nsion SOVEROW, RISTY A 05/11 [facility] En[facility] [id number] 05/12 [facility] En[facility] [id number] 05/12 [facility] NQHP OL DIG ASSMT&MGMT 5-10 [id number] Diagnos is: ICD-10- CM E11.9 Type 2 diabete s mellitu s without complic ations SOVER, RISTY A 05/15 [facility] NQHP OL DIG ASSMT&MGMT 5-10 [id number] Diagnos is: ICD-10- CM I10 Essenti al (primar y) hyperte nsion SOVEROW, RISTY A 05/26 [facility] Outpatient Encounter [id number] 05/27 [facility] MTMS BY PHARM ADDL 15 MIN [id number] Diagnos is: ICD-10- CM E11.9 Type 2 diabete s mellitu s without complic ations ADAIR APODACA A 05/27 [facility] Outpatient Encounter [id number] 05/29 [facility] [place] MTMS BY PHARM INVESTIGATION SPECIALIST 15 MIN [id number] 1BY. 60 Diagnos is: ICD-10- CM Z51.81 Encount er for therape utic drug level monitor ELIAS Stephens IE 06/03 [place] [facility] Outpatient Encounter [id number] [facility] (6[facility]GE) NQHP OL DIG ASSMT&MGMT 5-10 [id number] 1GE. 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 ADAIR APODACA 06/10 [facility] Outpatient Encounter [id number] 06/13 [facility] INVESTIGATION SPECIALIST 15 MIN [id number] Diagnos is: ICD-10- CM Z51.81 Encount er for therape utic drug level monitor ELIAS Stephens IE 06/16 [place] [facility] HEARING AID FITTING/CH ECKING [id number] Diagnos is: ICD-10- CM Z46.1 Encount er for fitting and adjustm ent of hearing aid Ronan SIMS 06/18 [facility] Encounter [id number] 07/06 [facility] HEARING AID FITTING/CH ECKING [id number] Diagnos is: ICD-10- CM Z46.1 Encount er for fitting and adjustm ent of hearing aid Ronan SIMS 07/09 [facility] Out[facility] Encounter [id number] 07/16 [facility] MTMS BY PHARM ADDL 15 MIN [id number] Diagnos is: ICD-10- CM E11.9 Type 2 diabete s mellitu s without complic ations ADAIR APODACA 07/22 [facility] Out[facility] Encounter [id number] 07/28 [facility] Encounter [id number] 07/28 [facility] Out[facility] Encounter [id number] 07/28 [facility] OFFICE O/P NEW LOW 30 MIN [id number] Diagnos is: ICD-10- CM E11.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 Social History Type Response Date Comment Sourc e Tobacco smoking status NHIS MS-TOBACCO FORMER USER 08/16/2023 [facility] [place] [facility] History of tobacco use MS-TOBACCO QUIT 15 YRS OR MORE 08/16/2023 [facility] [place] [facility] Plan of Care List of future care activities from Department of Veterans Affairs facilities. Additional future care activities may be listed in the Assessment and Plan section. Date/Time Care Activity Care Activity Detail Facili ty 08/14/2024 AMBULATORY - MEDICINE AMBULATORY - MEDICI NE [facility] [place] [facility]
--- OUTSIDE RECORDS SUMMARY | 2024-08-14 15:07 | XMS_ITS | Clinical Summary ---
Author Organization Unknown Care Team Providers Care Mortgage Operations Manager Name Role Phone OSCAR ASSISTANT HALL DIRECTOR, ELOINA Unavailable Unavailable OTONIEL PT, URBÉN Unavailable Unavailable SPAFFORD OT, OSCAR Unavailable Unavailable CONDINO HARDEEP/CAMARA, SHARRI Unavailable Unav ailable FECTEAU DIRECTOR MACHINE, LAURA Unavailable Unavailable SALVATORE RN, GERMAIN Unavailable Unavailab rolando ROE TENNIS PLAYER, TIA Unavailable Unavailable Payers Payer Name Policy Type Policy Number Effective Date Expira tion Date MEDICARE.NGS.PDGM [id number] Problems Condition Name Condition Details Condition Category [...] 04-14 00:00: 00 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 04-08 00:00: 00 DEPRESSION, UNSPECIFIED Active 04-08 00:00: 00 DISEASE OF STOMACH AND DUODENUM, UNSPECIFIED Active 04-08 00:00: 00 OBSTRUCTIVE SLEEP APNEA (ADULT) (PEDIATRIC) Active 04-14 00:00: 00 RESIDENTIAL (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 ANTITHROMBOT ICS/ANTIPLAT ELETS Active 04-14 00:00: 00 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 (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 ORAL HYPOGLYCEMIC DRUGS Active [...] 500 mg tablet 04-14 00:00: 00 Yes [id number] PAIN 2 tablet EVERY 8 HOURS 2 tablet EVERY 8 HOURS (route: oral) Med Classific ation: Analgesic , Anti-infl ammatory or Antipyret ic albuterol sulfate HFA 90 mcg/actuati on aerosol inhaler 04-14 00:00: 00 Yes [id number] SHORTNESS OF BREATH 1 puff EVERY 4 HOURS 1 puff EVERY 4 HOURS (route: inhalation ) Med Classific ation: Respirato ry Therapy Agents atorvastati n 80 mg tablet 04-14 00:00: 00 Yes [id number] HIGH LIPIDS 1 tablet BEDTIME 1 tablet BEDTIME (route: oral) Med Classific ation: Cardiovas cular Therapy Agents carvedilol 6.25 mg tablet 04-14 00:00: 00 05-12 23:59 :00 No [id number] HIGH BLOOD PRESSURE 1 tablet 2 TIMES DAILY 1 tablet 2 TIMES DAILY (route: oral) Med Classific ation: Cardiovas cular Therapy Agents clopidogrel 75 mg tablet 04-14 00:00: 00 Yes [id number] CORONARY ARTERY DISEASE 1 tablet EVERY PM 1 tablet EVERY PM (route: oral) Med Classific ation: Hematolog ical Agents fluticasone propionate 50 mcg/actuati on nasal spray,suspe nsion 04-14 00:00: 00 Yes [id number] COPD 1 spray 2 TIMES DAILY 1 spray 2 TIMES DAILY (route: nasal) Med Classific ation: Respirato ry Therapy Agents glipizide 10 mg tablet 04-14 00:00: 00 06-09 23:59 :00 No [id number] DIABETES 1 tablet DAILY 1 tablet DAILY (route: oral) Med Classific ation: Endocrine levetiracet am 500 mg tablet 04-14 00:00: 00 Yes [id number] SEIZURE 1 tablet 2 TIMES DAILY 1 tablet 2 TIMES DAILY (route: oral) Med Classific ation: Central Nervous System Agents losartan 25 mg tablet 04-14 00:00: 00 05-12 23:59 :00 No [id number] HIGH BLOOD PRESSURE 1 tablet DAILY 1 tablet DAILY (route: oral) Med Classific ation: Cardiovas cular Therapy Agents montelukast 10 mg tablet 04-14 00:00: 00 Yes [id number] COPD 1 tablet DAILY 1 tablet DAILY (route: oral) Med Classific ation: Respirato ry Therapy Agents Multivitami n Gummies 200 mcg chewable tablet 04-14 00:00: 00 Yes [id number] SUPPLEMENT 2 tablet DAILY 2 tablet DAILY (route: oral) Med Classific ation: Electroly te Balance-N utritiona l Products omeprazole 20 mg capsule,del ayed release 04-14 00:00: 00 Yes [id number] GERD 1 capsule 2 TIMES DAILY 1 capsule 2 TIMES DAILY (route: oral) Med Classific ation: Gastroint estinal Therapy Agents Qunol Yogesh CoQ10 100 mg capsule 04-14 00:00: 00 Yes [id number] SUPPLEMENT 1 capsule DAILY 1 capsule DAILY (route: oral) Med Classific ation: Alternati ve Therapy sertraline 50 mg tablet 04-14 00:00: 00 Yes [id number] SADNESS 0.5 tablet DAILY 0.5 tablet DAILY (route: oral) Med Classific ation: Central Nervous System Agents sucralfate 1 gram tablet 04-14 00:00: 00 Yes [id number] ULCER PAIN 1 tablet 2 TIMES DAILY 1 tablet 2 TIMES DAILY (route: oral) Med Classific ation: Gastroint estinal Therapy Agents benzonatate 200 mg capsule 04-27 00:00: 00 Yes [id number] COUGH 200 mg 3 TIMES DAILY 200 mg 3 TIMES DAILY (route: oral) Med Classific ation: Respirato ry Therapy Agents prednisone 20 mg tablet 04-28 00:00: 00 06-09 23:59 :00 No [id number] COPD 40 mg DAILY 40 mg DAILY (route: oral) Med Classific ation: Endocrine Zithromax 250 mg tablet 1-20 00:00: 00 06-09 23:59 :00 No [id number] UPPER RESPIRATORY INFECTION 250 mg DAILY 250 mg DAILY (route: oral) Med Classific ation: Anti-Infe ctive Agents Eliquis 5 mg tablet 1-28 00:00: 00 Yes [id number] AFIB 5 mg 2 TIMES DAILY 5 mg 2 TIMES DAILY (route: oral) Med Classific ation: Hematolog ical Agents metoprolol succinate ER 25 mg tablet,exte nded release 24 hr 05-12 00:00: 00 Yes [id number] HTN 25 mg DAILY 25 mg DAILY (route: oral) Med Classific ation: Cardiovas cular Therapy Agents glipizide 10 mg tablet 06-13 00:00: 00 Yes [id number] DIABETES 1 tablet 2 TIMES DAILY 1 tablet 2 TIMES DAILY (route: oral) Med Classific ation: Endocrine Vital Signs Vital Name Observation Time Observation Value Commen ts Temperature 2024-08-10 10:30:00.000 98.2 [degF] Temperature 2024-07-15 09:48:00.000 97.3 [degF] Temperature 2024-07-01 15:10:00.000 97 [degF] Temperature 2024-06-24 14:40:00.000 97 [degF] Temperature 2024-06-17 12:44:00.000 97.2 [degF] Pulse 2024-08-10 10:30:00.000 70 /min Pulse 2024-07-15 09:48:00.000 70 /min Pulse 2024-07-01 15:10:00.000 70 /min Pulse 2024-06-24 14:40:00.000 68 /min Pulse 2024-06-17 12:44:00.000 80 /min O2 Saturation (%) 2024-08-10 10:30:00.000 98 % O2 Saturation (%) 2024-07-15 09:48:00.000 97 % O2 Saturation (%) 2024-06-17 12:44:00.000 96 % Respirations 2024-08-10 10:30:00.000 18 /min Respirations 2024-07-15 09:48:00.000 16 /min Respirations 2024-07-01 15:10:00.000 18 /min Respirations 2024-06-24 14:40:00.000 18 /min Respirations 2024-06-17 12:44:00.000 18 /min Weight (lbs) 2024-06-24 14:41:00.000 208 [lb_av] Systolic Blood Pressure 2024-08-10 10:30:00.000 140 mm [Hg] Systolic Blood Pressure 2024-07-15 09:48:00.000 140 mm [Hg] Systolic Blood Pressure 2024-07-01 15:10:00.000 120 mm [Hg] Systolic Blood Pressure 2024-06-24 14:40:00.000 146 mm [Hg] Systolic Blood Pressure 2024-06-17 12:44:00.000 138 mm [Hg] Diastolic Blood Pressure 2024-08-10 10:30:00.000 60 mm [Hg] Diastolic Blood Pressure 2024-07-15 09:48:00.000 [...] CONSULTING PHYSICIANS. RN TO OBSERVE AND ASSESS, TENNIS PLAYER/CHIMNEY REPAIRER TO OBSERVE FOR RISK FOR FALLS AND INSTRUCT IN FALL PREVENTION, HOME SAFETY, MEDICATION MANAGEMENT, INFECTION PREVENTION, AND NUTRITION MANAGEMENT. RN/TENNIS PLAYER/CHIMNEY REPAIRER NURSE MAY PERFORM O2 SATURATION LEVEL ON ADMISSION AND PRN FOR RN TO ASSESS/TENNIS PLAYER TO OBSERVE PATIENT, WITH NOTIFICATION TO THE PHYSICIAN IF SATURATION IS 90% IN THE ABSENCE OF MORE SPECIFIC PARAMETERS FROM THE PHYSICIAN. AGENCY MAY PERFORM A RESUMPTION OF CARE VISIT FOLLOWING ANY HOSPITAL ADMISSION. RN/TENNIS PLAYER/CHIMNEY REPAIRER TO MONITOR CO-MORBID CONDITIONS LISTED ON THE PLAN OF CARE AND ANY NEW CONDITIONS THAT PRESENT THEMSELVES DURING THIS EPISODE TO IDENTIFY CHANGES AND INTERVENE TO MINIMIZE COMPLICATIONS. [code = RN TO OBSERVE, ASSESS, EVALUATE, AND DEVELOP AN INDIVIDUALIZED PLAN OF CARE. AGENCY MAY ACCEPT ORDERS FROM CONSULTING PHYSICIANS. RN TO OBSERVE AND ASSESS, TENNIS PLAYER/CHIMNEY REPAIRER TO OBSERVE FOR RISK FOR FALLS AND INSTRUCT IN FALL PREVENTION, HOME SAFETY, MEDICATION MANAGEMENT, INFECTION PREVENTION, AND NUTRITION MANAGEMENT. RN/TENNIS PLAYER/CHIMNEY REPAIRER NURSE MAY PERFORM O2 SATURATION LEVEL ON ADMISSION AND PRN FOR RN TO ASSESS/TENNIS PLAYER TO OBSERVE PATIENT, WITH NOTIFICATION TO THE PHYSICIAN IF SATURATION IS 90% IN THE ABSENCE OF MORE SPECIFIC PARAMETERS FROM THE PHYSICIAN. AGENCY MAY PERFORM A RESUMPTION OF CARE VISIT FOLLOWING ANY HOSPITAL ADMISSION. RN/TENNIS PLAYER/CHIMNEY REPAIRER TO MONITOR CO-MORBID CONDITIONS LISTED ON THE PLAN OF CARE AND ANY NEW CONDITIONS THAT PRESENT THEMSELVES DURING THIS EPISODE TO IDENTIFY CHANGES AND INTERVENE TO MINIMIZE COMPLICATIONS.] Future Scheduled Test MEDICATION MANAGEMENT; RN/TENNIS PLAYER/CHIMNEY REPAIRER TO REVIEW MEDICATIONS FOR INTERACTIONS, EFFECTIVENESS OF DRUG THERAPY, AND SIGNS/SYMPTOMS OF ADVERSE REACTIONS. MAY INSTRUCT AND REINFORCE MEDICATION TEACHING RELATED TO THE USE OF MEDICATIONS, DOSAGE, FREQUENCY, PURPOSE, SIDE EFFECTS, AND TO REPORT COMPLICATIONS. [code = MEDICATION MANAGEMENT; RN/TENNIS PLAYER/CHIMNEY REPAIRER TO REVIEW MEDICATIONS FOR INTERACTIONS, EFFECTIVENESS OF DRUG THERAPY, AND SIGNS/SYMPTOMS OF ADVERSE REACTIONS. MAY INSTRUCT AND REINFORCE MEDICATION TEACHING RELATED TO THE USE OF MEDICATIONS, DOSAGE, FREQUENCY, PURPOSE, SIDE EFFECTS, AND TO REPORT COMPLICATIONS.] Future Scheduled Test RISK FOR H OSPITALIZATION; RN TO ASSESS/TEACH, CHIMNEY REPAIRER/TENNIS PLAYER TO OBSERVE/TEACH PATIENT/CAREGIVER ON RISK FOR HOSPITALIZATION/EMERGENCY ROOM VISITS, TEACH SIGNS AND SYMPTOMS THAT PUT PATIENT AT RISK, WHEN TO NOTIFY NURSE/PHYSICIAN OF COMPLICATIONS/DECLINE, AND WHEN TO CALL 911. [code = RISK FOR HOSPITALIZATION; RN TO ASSESS/TEACH, CHIMNEY REPAIRER/TENNIS PLAYER TO OBSERVE/TEACH PATIENT/CAREGIVER ON RISK FOR HOSPITALIZATION/EMERGENCY ROOM VISITS, TEACH SIGNS AND SYMPTOMS THAT PUT PATIENT AT RISK, WHEN TO NOTIFY NURSE/PHYSICIAN OF COMPLICATIONS/DECLINE, AND WHEN TO CALL 911.] Future Scheduled Test CARDIOVASC ULAR SYSTEM; RN TO ASSESS/TEACH, TENNIS PLAYER/CHIMNEY REPAIRER TO OBSERVE/TEACH RELATED TO ALTERED CARDIOVASCULAR STATUS TO MINIMIZE COMPLICATIONS AND REDUCE HOSPITALIZATION. [code = CARDIOVASCULAR SYSTEM; RN TO ASSESS/TEACH, TENNIS PLAYER/CHIMNEY REPAIRER TO OBSERVE/TEACH RELATED TO ALTERED CARDIOVASCULAR STATUS TO MINIMIZE COMPLICATIONS AND REDUCE HOSPITALIZATION.] Future Scheduled Test HYPERTENSI ON MANAGEMENT; RN TO ASSESS AND TEACH, TENNIS PLAYER/CHIMNEY REPAIRER TO OBSERVE AND TEACH WARNING SIGNS AND SYMPTOMS TO AVOID HOSPITALIZATION. [code = HYPERTENSION MANAGEMENT; RN TO ASSESS AND TEACH, TENNIS PLAYER/CHIMNEY REPAIRER TO OBSERVE AND TEACH WARNING SIGNS AND SYMPTOMS TO AVOID HOSPITALIZATION.] Future Scheduled Test RESPIRATOR Y SYSTEM MANAGEMENT; RN TO ASSESS AND TEACH, TENNIS PLAYER/CHIMNEY REPAIRER TO OBSERVE AND TEACH RELATED TO ALTERED RESPIRATORY STATUS TO MINIMIZE COMPLICATIONS AND REDUCE HOSPITALIZATION. [code = RESPIRATORY SYSTEM MANAGEMENT; RN TO ASSESS AND TEACH, TENNIS PLAYER/CHIMNEY REPAIRER TO OBSERVE AND TEACH RELATED TO ALTERED RESPIRATORY STATUS TO MINIMIZE COMPLICATIONS AND REDUCE HOSPITALIZATION.] Future Scheduled Test COPD MANAG EMENT; RN TO ASSESS AND TEACH, TENNIS PLAYER/CHIMNEY REPAIRER TO OBSERVE AND TEACH SIGNS/SYMPTOMS OF COPD EXACERBATION AND PROVIDE EARLY INTERVENTIONS TO MINIMIZE RISK OF HOSPITALIZATION. RN/TENNIS PLAYER/CHIMNEY REPAIRER TO INSTRUCT ON SELF-CARE MANAGEMENT INCLUDING BREATHING TECHNIQUES, AIRWAY CLEARANCE, AND PROPER USE OF COPD MEDICATIONS. RN TO ASSESS AND TEACH, TENNIS PLAYER/CHIMNEY REPAIRER TO OBSERVE AND TEACH PATIENT/CAREGIVER ABILITY TO MONITOR AND RECORD VITAL SIGNS INCLUDING PULSE OXIMETRY AND BLOOD PRESSURE. [code = COPD MANAGEMENT; RN TO ASSESS AND TEACH, TENNIS PLAYER/CHIMNEY REPAIRER TO OBSERVE AND TEACH SIGNS/SYMPTOMS OF COPD EXACERBATION AND PROVIDE EARLY INTERVENTIONS TO MINIMIZE RISK OF HOSPITALIZATION. RN/TENNIS PLAYER/CHIMNEY REPAIRER TO INSTRUCT ON SELF-CARE MANAGEMENT INCLUDING BREATHING TECHNIQUES, AIRWAY CLEARANCE, AND PROPER USE OF COPD MEDICATIONS. RN TO ASSESS AND TEACH, TENNIS PLAYER/CHIMNEY REPAIRER TO OBSERVE AND TEACH PATIENT/CAREGIVER ABILITY TO MONITOR AND RECORD VITAL SIGNS INCLUDING PULSE OXIMETRY AND BLOOD PRESSURE. ] Future Scheduled Test PAIN MANAG EMENT; RN TO ASSESS AND TEACH, CHIMNEY REPAIRER/TENNIS PLAYER TO OBSERVE AND TEACH AND PROVIDE EDUCATION ON PAIN MANAGEMENT TECHNIQUES. [code = PAIN MANAGEMENT; RN TO ASSESS AND TEACH, CHIMNEY REPAIRER/TENNIS PLAYER TO OBSERVE AND TEACH AND PROVIDE EDUCATION ON PAIN MANAGEMENT TECHNIQUES.] Future Scheduled Test DIABETES M ANAGEMENT; RN TO ASSESS AND TEACH, CHIMNEY REPAIRER/TENNIS PLAYER TO OBSERVE AND TEACH INSTRUCTIONS OF DIABETIC CARE TO INCLUDE: DIET CCHO, HEART HEALTHY SKIN CARE, SIGNS AND SYMPTOMS OF HYPO/HYPERGLYCEMIA, PROPER ADMINISTRATION OF DIABETIC MEDICATION. RN/CHIMNEY REPAIRER/TENNIS PLAYER TO INSTRUCT ON DIABETIC FOOT CARE AND MONITOR FOR SKIN LESIONS ON LOWER EXTREMITIES. BLOOD GLUCOSE TESTING TID RN TO ASSESS AND TEACH, CHIMNEY REPAIRER/TENNIS PLAYER TO OBSERVE AND TEACH PATIENT/CAREGIVER ABILITY TO PERFORM AND RECORD BLOOD GLUCOSE TESTING ORDERED AND TO REPORT ABNORMAL FINDINGS TO PHYSICIAN. RN/CHIMNEY REPAIRER/TENNIS PLAYER MAY PERFORM BLOOD GLUCOSE TEST NEEDED. RN/CHIMNEY REPAIRER/TENNIS PLAYER TO REPORT TO PHYSICIAN BLOOD GLUCOSE READINGS GREATER THAN 200 OR LESS THAN 80 RN/CHIMNEY REPAIRER/TENNIS PLAYER TO INSTRUCT PATIENT ON IMPORTANCE OF HGBA1C MONITORING, KIDNEY FUNCTION TEST, EYE AND FOOT EXAMS. [code = DIABETES MANAGEMENT; RN TO ASSESS AND TEACH, CHIMNEY REPAIRER/TENNIS PLAYER TO OBSERVE AND TEACH INSTRUCTIONS OF DIABETIC CARE TO INCLUDE: DIET CCHO, HEART HEALTHY SKIN CARE, SIGNS AND SYMPTOMS OF HYPO/HYPERGLYCEMIA, PROPER ADMINISTRATION OF DIABETIC MEDICATION. RN/CHIMNEY REPAIRER/TENNIS PLAYER TO INSTRUCT ON DIABETIC FOOT CARE AND MONITOR FOR SKIN LESIONS ON LOWER EXTREMITIES. BLOOD GLUCOSE TESTING TID RN TO ASSESS AND TEACH, CHIMNEY REPAIRER/TENNIS PLAYER TO OBSERVE AND TEACH PATIENT/CAREGIVER ABILITY TO PERFORM AND RECORD BLOOD GLUCOSE TESTING ORDERED AND TO REPORT ABNORMAL FINDINGS TO PHYSICIAN. RN/CHIMNEY REPAIRER/TENNIS PLAYER MAY PERFORM BLOOD GLUCOSE TEST NEEDED. RN/CHIMNEY REPAIRER/TENNIS PLAYER TO REPORT TO PHYSICIAN BLOOD GLUCOSE READINGS GREATER THAN 200 OR LESS THAN 80 RN/CHIMNEY REPAIRER/TENNIS PLAYER TO INSTRUCT PATIENT ON IMPORTANCE OF HGBA1C MONITORING, KIDNEY FUNCTION TEST, EYE AND FOOT EXAMS.] Future Scheduled Test ARRHYTHMIA MANAGEMENT; RN TO ASSESS AND TEACH, TENNIS PLAYER/CHIMNEY REPAIRER TO OBSERVE AND TEACH WARNING SIGNS AND SYMPTOMS TO AVOID HOSPITALIZATION. [code = ARRHYTHMIA MANAGEMENT; RN TO ASSESS AND TEACH, TENNIS PLAYER/CHIMNEY REPAIRER TO OBSERVE AND TEACH WARNING SIGNS AND SYMPTOMS TO AVOID HOSPITALIZATION.] Future Scheduled Test FALL REDUC TION MANAGEMENT; RN TO ASSESS AND OBSERVE, TENNIS PLAYER/CHIMNEY REPAIRER TO OBSERVE FALL RISK FACTORS AND EDUCATE PATIENT/CAREGIVER ON STRATEGIES TO MINIMIZE THE RISK OF FALLING. [code = FALL REDUCTION MANAGEMENT; RN TO ASSESS AND OBSERVE, TENNIS PLAYER/CHIMNEY REPAIRER TO OBSERVE FALL RISK FACTORS AND EDUCATE PATIENT/CAREGIVER ON STRATEGIES TO MINIMIZE THE RISK OF FALLING.] Future Scheduled Test NEUROLOGIC AL SYSTEM MANAGEMENT; RN TO ASSESS AND TEACH, CHIMNEY REPAIRER/TENNIS PLAYER TO OBSERVE AND TEACH RELATED TO ALTERED NEUROLOGICAL STATUS TO MINIMIZE COMPLICATIONS AND REDUCE HOSPITALIZATION. [code = NEUROLOGICAL SYSTEM MANAGEMENT; RN TO ASSESS AND TEACH, CHIMNEY REPAIRER/TENNIS PLAYER TO OBSERVE AND TEACH RELATED TO ALTERED NEUROLOGICAL STATUS TO MINIMIZE COMPLICATIONS AND REDUCE HOSPITALIZATION.] Future Scheduled Test SEIZURE DI SORDER MANAGEMENT; RN/CHIMNEY REPAIRER/TENNIS PLAYER TO PROVIDE INSTRUCTION REGARDING MANAGEMENT OF SEIZURE DISORDER AND SEIZURE PRECAUTIONS. [code = SEIZURE DISORDER MANAGEMENT; RN/CHIMNEY REPAIRER/TENNIS PLAYER TO PROVIDE INSTRUCTION REGARDING MANAGEMENT OF SEIZURE DISORDER AND SEIZURE PRECAUTIONS.] Goal 2024-06-09 Patient Goal - G ET BACK TO NORMAL, CLEAR UP COLD, GET STRONGER, GET OUT AND DO LAWN, WORK AROUND THE HOUSE Goal 2024-08-10 Patient Goal - G ET BACK TO NORMAL, CLEAR UP COLD, GET STRONGER, GET OUT AND DO LAWN, WORK AROUND THE HOUSE Goal Patient Goal - G ET BACK TO NORMAL, GET STRONGER, GET OUT AND DO LAWN, [...] End Date/Time Encounter Type Admission Type Attending [facility] Care Department Encounter ID Discharge Date Discharge Status Discharge Condition Discharge Reason Percent Goals Met 2024-06-13 00:00:00 2024-08-11 00:00:00 Outpatient RECERTIFIC GERMAIN [facility] [id number] 9.09
--- OUTSIDE RECORDS SUMMARY | 2024-08-14 15:07 | XMS_ITS | Patient Health Record ---
Author Organization [facility] Address [address] [place] [address] Care Team Providers Care Senior Dentist Name Role Phone Gilbert Francis MD Primary Care Provider Dexter Bundy Unavailable [phone] Allergies No Known Allergies Reason For Referral [...] Status Risk Notes Problem Gastroesophageal reflux disease (K21.9) Active confirmed Problem [id number] Gastroesophageal reflux disease, unspecified whether esophagitis present (K21.9) Active confirmed Problem [id number] Esophageal dysph agia (R13.19) Active confirmed Plan Of Treatment Pending Test Test Name Order Date Pathology 06/14/2022 Future Test Test Name Order Date UPPER GI ENDOSCOPY [place] DILATION OF ESOPH 05/24/2022 Insurance Providers Payer Name Payer Address Payer Phone Subscriber Number Group Number Insured Name Patient Relationship to Insured Coverage Start Date Coverage End Date MEDICARE OF [employer] [address] [place] [address] [id number] DEXTER MORAN Self - patient is the insured Medical (General) History Medical History History ICD Code NIDDM Hypertension Hypercholesterolemia Denies [place],DM,CVA,Lung disease,renal dise ase Colonoscopy with tubular adenoma [place] [address] [place] Peripheral vascular disease with procedu res as below Surgical History Surgery Date(Month/Year) Appendectomy Vascular--Bilateral LE's wit h Dr. Oscar-left iliac artery stenting in 2019; right lower extremity vascular surgery in 2019 Right Inguinal Hernia [facility]
--- OUTSIDE RECORDS SUMMARY | 2024-08-14 15:07 | XMS_ITS ---
Author Name [facility] Organization [facility] Address [address] [place] [id number] Care Team Providers Care Drill Operator Pneumatic Name Role Phone ELOINA MOORE Primary Care Provider [facility] Insurance Providers: All historical and current [...] PART A Feb 06, 2005 PART A [id number] DEXTER MORAN PATIENT MEDICARE (WNR) MEDICARE (M) PART B Feb 06, 2005 PART B [id number] DEXTER MORAN PATIENT Selected Encounter This section includes the information on record at [place] for the Encounter. Date/Time Encounter Type Encounter Description Reason Provider Source August 14, 2024 12:00 PM MTMS BY PHARM EST 15 MIN TELEPHONE PRIMARY CARE ICD-10-CM E11.9 Type 2 diabetes mellitus without complications ADAIR APODACA Encounter Template Text not used by [place] Assessments - Encounter Diagnoses This section includes the primary and secondary diagnoses documented for the Encounter. Date/Time Primary/Secondary Diagnosis Diagnosis Name Provider Source August 14, 2024 12:00 PM PRIMARY Type 2 diabetes mellitus without complications [facility] Plan of Treatment: Future Appointments (+ 6 months) and Future Tests (+/- 45 days) The Plan of Treatment section includes future care activities for the patient [facility] This section includes future appointments and future orders which are active, pending or scheduled. Future Appointments This section includes appointments that were scheduled to occur 6 months from the date of the Encounter, up to a maximum of 20 appointments. The data comes from all [place] treatment [facility]. Appointment Date/Time Appointment Type Appointme nt Facility Name August 19, 2024 10:40 AM AMBULATORY - MEDICINE [facility] August 20, 2024 08:00 AM [facility] Oct 12, 2024 11:00 AM [facility] Oct 28, 2024 04:00 PM AMBULATORY - NONE [facility] Nov 25, 2024 09:30 AM AMBULATORY - MEDICINE [facility] Active, Pending, and Scheduled Orders This section includes a listing of several types of active, pending, and scheduled orders, including clinic medications orders, diagnostic test orders, procedure orders and consult orders; where the start date of the order is 45 days before the date of the Encounter or 45 days after the date of theEncounter. The data comes from all [facility]. Test Date/Time Test Type Test Details Facility Name Jul 16, 2024 09:13 AM Consult Order COMMUNITY CARE-NEUROLOGY Cons Sheet Manager's Choice [facility] Aug 02, 2024 01:43 PM Consult Order COMMUNITY CARE-GEC NON-SKILLED HOME HEALTH AIDE Cons Sheet Manager's Choice [facility] Social History: Smoking Status (Most current) and Tobacco Use (All prior to encounter date) This section includes the most current, and the historical, smoking and tobacco- related health factors from the [place] facility where the Encounter took place. Current Smoking Status This section includes the most current smoking, or tobacco-related health factor, from the [place] facility where the Encounter took place. Date/Time Current Smoking Status Comment Kaley roberto August 16, 2023 11:14 AM VA-TOBACCO FORMER USER [facility] Tobacco Use History This section includes a history of the smoking, or tobacco-related health factors, that were collected on or before the date of the Encounter. The data comes from the [place] facility where the Encounter took place. Date/Time Smoking Status/Tobacco Use Comment Yissel gabriel August 16, 2023 11:14 AM VA-TOBACCO QUIT 15 YRS OR MORE [facility] Encounter Notes: All associated encounter notes This section contains the clinical notes associated to the Encounter. Date/Time Encounter Note(s) Provider Source August 14, 2024 12:00 PM PHARMACY TELEPHONE ENCOUNTER NOTE: LOCAL TITLE: TELEPHONE NOTE/PHARMACY STANDARD TITLE: PHARMACY TELEPHONE ENCOUNTER NOTE DATE OF NOTE: AUGUST 14, 2024@12:00 ENTRY DATE: AUGUST 14, 2024@12:00:34 AUTHOR: ADAIR APODACA COSIGNER: URGENCY: STATUS: COMPLETED DEXTER JOSEFINA DEAN, 84 yo WHITE MALE, contacted via telephone for follow up visit for diabetes medication management. Pt was last seen in office on 07/22/24 in which consult for semaglutide was approved and intiated at 0.25 mg once weekly Today, pt contacted with daughter Taryn also on the phone. Notes some nause and diarrhea about a week ago but also had flu in household. Pt took second dose today and feels ok. Denies hypos. Of note daughterTaryn is contact which will be helping him admin medications - Taryn [phone] Current diabetes medications: - glipizide 5 mg BID - semaglutide 0.25 mg on Saturday Previous diabetes medications: - metformin diarrhea Medication Adherence: - sometimes forgets Diet Patterns: patient eats on avg. 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 WED before lunch, SAT before bed - Monitor for s/sx hypoglycemia and contact clinic if BG consistently <70mg/dL - Reviewed 15-15 rule and provided handout - Healthy dietary and lifestyle modifications encouraged - Repeat A1c: TBD based on tx change EDUCATION -A shared decision-making approach was used in the development of this plan, involving the [facility], clinician, and any caregivers present. The was provided the opportunity express questions or concerns, and the plan was adjusted as needed to address these concerns. -Reviewed with [facility] any new medications, changes to the medication list, education, and plan from today's visit. Patient (and/or caregiver) verbalized understanding of the plan, including possible known risks and benefits, and had no additional questions. RTC:09/04/24 @1200 Time Spent: 6 mins Suicide Screen: C-SSRS Screening [place]-Suicide Severity Rating Scale (C-SSRS Screener) 1. Over the past month, have you wished you were or wished you could go to sleep and not wake up? No 2. Over the past month, have you had any actual thoughts of killing yourself? No 3. Over the past month, have you been thinking about how you might do this? Response not required due to responses to other questions. 4. Over the past month, have you had these thoughts and had some intention of acting on them? Response not required due to responses to other questions. 5. Over the past month, have you started to work out or worked out the details of how to kill yourself? Response not required due to responses to other questions. 6. If yes, at any time in the past month did you intend to carry out this plan? Response not required due to responses to other questions. 7. In your lifetime, have you ever done anything, started to do anything, or prepared to do anything to end your life (for example, collected pills, obtained a gun, gave away valuables, went to the roof but didn't jump)? No 8. If YES, was this within the past 3 months? Response not required due to responses to other questions. PBM PharmD Pharmacotherapy Rem V12: PHARMACIST INTERVENTIONS: TYPE 2 DIABETES MELLITUS Medication monitoring, no dosage change required, continue to monitor and assess Suicide risk assessment, screening and/or education Suicide screening /es/ ADAIR APODACA PHARMD,[facility] CLINICAL PHARMACY PRACTITIONER Signed: 08/14/2024 12:14 ADAIR APODACA [place] [facility]
[2024-08-14 15:08] VITALS: BP 160/88; PULSE 80; O2SAT 96; BMI 31.5
--- OUTSIDE RECORDS SUMMARY | 2024-08-14 15:08 | XMS_ITS | Clinical Summary ---
Author Organization Unknown Care Team Providers Care Filenet P8 Developer Name Role Phone OSCAR SHINGLE CATCHER, ELOINA Unavailable Unavailable OTONIEL PT, RUBÉN Unavailable Unavailable SPAFFORD OT, OSCAR Unavailable Unavailable CONDINO HARDEEP/CAMARA, SHARRI Unavailable Unav ailable FECTEAU CAD DRAFTSMAN, LAURA Unavailable Unavailable SALVATORE RN, GERMAIN Unavailable Unavailab rolando ROE JUNIOR HIGH MATH TEACHER, TIA Unavailable Unavailable Payers Payer Name Policy Type Policy Number Effective Date Expira tion Date MEDICARE.NGS.PDGM [id number] Problems Condition Name Condition Details Condition Category [...] 04-14 00:00: 00 ATHSCL HEART DISEASE OF [place] CORONARY ARTERY W/O ANG PCTRS Active 04-08 00:00: 00 DEPRESSION, UNSPECIFIED Active 04-08 00:00: 00 DISEASE OF STOMACH AND DUODENUM, UNSPECIFIED Active 04-08 00:00: 00 OBSTRUCTIVE SLEEP APNEA (ADULT) (PEDIATRIC) Active 04-14 00:00: 00 [facility] (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 ANTITHROMBOT ICS/ANTIPLAT ELETS Active 04-14 00:00: 00 CAREER DEVELOPMENT MANAGER (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 ORAL HYPOGLYCEMIC DRUGS Active [...] 500 mg tablet 04-14 00:00: 00 Yes [id number] PAIN 2 tablet EVERY 8 HOURS 2 tablet EVERY 8 HOURS (route: oral) Med Classific ation: Analgesic , Anti-infl ammatory or Antipyret ic albuterol sulfate HFA 90 mcg/actuati on aerosol inhaler 04-14 00:00: 00 Yes [id number] SHORTNESS OF BREATH 1 puff EVERY 4 HOURS 1 puff EVERY 4 HOURS (route: inhalation ) Med Classific ation: Respirato ry Therapy Agents atorvastati n 80 mg tablet 04-14 00:00: 00 Yes [id number] HIGH LIPIDS 1 tablet BEDTIME 1 tablet BEDTIME (route: oral) Med Classific ation: Cardiovas cular Therapy Agents carvedilol 6.25 mg tablet 04-14 00:00: 00 05-12 23:59 :00 No [id number] HIGH BLOOD PRESSURE 1 tablet 2 TIMES DAILY 1 tablet 2 TIMES DAILY (route: oral) Med Classific ation: Cardiovas cular Therapy Agents clopidogrel 75 mg tablet 04-14 00:00: 00 Yes [id number] CORONARY ARTERY DISEASE 1 tablet EVERY PM 1 tablet EVERY PM (route: oral) Med Classific ation: Hematolog ical Agents fluticasone propionate 50 mcg/actuati on nasal spray,suspe nsion 04-14 00:00: 00 Yes [id number] COPD 1 spray 2 TIMES DAILY 1 spray 2 TIMES DAILY (route: nasal) Med Classific ation: Respirato ry Therapy Agents glipizide 10 mg tablet 04-14 00:00: 00 06-09 23:59 :00 No [id number] DIABETES 1 tablet DAILY 1 tablet DAILY (route: oral) Med Classific ation: Endocrine levetiracet am 500 mg tablet 04-14 00:00: 00 Yes [id number] SEIZURE 1 tablet 2 TIMES DAILY 1 tablet 2 TIMES DAILY (route: oral) Med Classific ation: Central Nervous System Agents losartan 25 mg tablet 04-14 00:00: 00 05-12 23:59 :00 No [id number] HIGH BLOOD PRESSURE 1 tablet DAILY 1 tablet DAILY (route: oral) Med Classific ation: Cardiovas cular Therapy Agents montelukast 10 mg tablet 04-14 00:00: 00 Yes [id number] COPD 1 tablet DAILY 1 tablet DAILY (route: oral) Med Classific ation: Respirato ry Therapy Agents Multivitami n Gummies 200 mcg chewable tablet 04-14 00:00: 00 Yes [id number] SUPPLEMENT 2 tablet DAILY 2 tablet DAILY (route: oral) Med Classific ation: Electroly te Balance-N utritiona l Products omeprazole 20 mg capsule,del ayed release 04-14 00:00: 00 Yes [id number] GERD 1 capsule 2 TIMES DAILY 1 capsule 2 TIMES DAILY (route: oral) Med Classific ation: Gastroint estinal Therapy Agents Qunol Yogesh CoQ10 100 mg capsule 04-14 00:00: 00 Yes [id number] SUPPLEMENT 1 capsule DAILY 1 capsule DAILY (route: oral) Med Classific ation: Alternati ve Therapy sertraline 50 mg tablet 04-14 00:00: 00 Yes [id number] SADNESS 0.5 tablet DAILY 0.5 tablet DAILY (route: oral) Med Classific ation: Central Nervous System Agents sucralfate 1 gram tablet 04-14 00:00: 00 Yes [id number] ULCER PAIN 1 tablet 2 TIMES DAILY 1 tablet 2 TIMES DAILY (route: oral) Med Classific ation: Gastroint estinal Therapy Agents benzonatate 200 mg capsule 04-27 00:00: 00 Yes [id number] COUGH 200 mg 3 TIMES DAILY 200 mg 3 TIMES DAILY (route: oral) Med Classific ation: Respirato ry Therapy Agents prednisone 20 mg tablet 04-28 00:00: 00 06-09 23:59 :00 No [id number] COPD 40 mg DAILY 40 mg DAILY (route: oral) Med Classific ation: Endocrine Zithromax 250 mg tablet 1-20 00:00: 00 06-09 23:59 :00 No [id number] UPPER RESPIRATORY INFECTION 250 mg DAILY 250 mg DAILY (route: oral) Med Classific ation: Anti-Infe ctive Agents Eliquis 5 mg tablet 1-28 00:00: 00 Yes [id number] AFIB 5 mg 2 TIMES DAILY 5 mg 2 TIMES DAILY (route: oral) Med Classific ation: Hematolog ical Agents metoprolol succinate ER 25 mg tablet,exte nded release 24 hr 05-12 00:00: 00 Yes [id number] HTN 25 mg DAILY 25 mg DAILY (route: oral) Med Classific ation: Cardiovas cular Therapy Agents glipizide 10 mg tablet 06-13 00:00: 00 Yes [id number] DIABETES 1 tablet 2 TIMES DAILY 1 [...] CONSULTING PHYSICIANS. RN TO OBSERVE AND ASSESS, JUNIOR HIGH MATH TEACHER/LINE WALKER TO OBSERVE FOR RISK FOR FALLS AND INSTRUCT IN FALL PREVENTION, HOME SAFETY, MEDICATION MANAGEMENT, INFECTION PREVENTION, AND NUTRITION MANAGEMENT. RN/JUNIOR HIGH MATH TEACHER/LINE WALKER NURSE MAY PERFORM O2 SATURATION LEVEL ON ADMISSION AND PRN FOR RN TO ASSESS/JUNIOR HIGH MATH TEACHER TO OBSERVE PATIENT, WITH NOTIFICATION TO THE PHYSICIAN IF SATURATION IS 90% IN THE ABSENCE OF MORE SPECIFIC PARAMETERS FROM THE PHYSICIAN. AGENCY MAY PERFORM A RESUMPTION OF CARE VISIT FOLLOWING ANY HOSPITAL ADMISSION. RN/JUNIOR HIGH MATH TEACHER/LINE WALKER TO MONITOR CO-MORBID CONDITIONS LISTED ON THE PLAN OF CARE AND ANY NEW CONDITIONS THAT PRESENT THEMSELVES DURING THIS EPISODE TO IDENTIFY CHANGES AND INTERVENE TO MINIMIZE COMPLICATIONS. [code = RN TO OBSERVE, ASSESS, EVALUATE, AND DEVELOP AN INDIVIDUALIZED PLAN OF CARE. AGENCY MAY ACCEPT ORDERS FROM CONSULTING PHYSICIANS. RN TO OBSERVE AND ASSESS, JUNIOR HIGH MATH TEACHER/LINE WALKER TO OBSERVE FOR RISK FOR FALLS AND INSTRUCT IN FALL PREVENTION, HOME SAFETY, MEDICATION MANAGEMENT, INFECTION PREVENTION, AND NUTRITION MANAGEMENT. RN/JUNIOR HIGH MATH TEACHER/LINE WALKER NURSE MAY PERFORM O2 SATURATION LEVEL ON ADMISSION AND PRN FOR RN TO ASSESS/JUNIOR HIGH MATH TEACHER TO OBSERVE PATIENT, WITH NOTIFICATION TO THE PHYSICIAN IF SATURATION IS 90% IN THE ABSENCE OF MORE SPECIFIC PARAMETERS FROM THE PHYSICIAN. AGENCY MAY PERFORM A RESUMPTION OF CARE VISIT FOLLOWING ANY HOSPITAL ADMISSION. RN/JUNIOR HIGH MATH TEACHER/LINE WALKER TO MONITOR CO-MORBID CONDITIONS LISTED ON THE PLAN OF CARE AND ANY NEW CONDITIONS THAT PRESENT THEMSELVES DURING THIS EPISODE TO IDENTIFY CHANGES AND INTERVENE TO MINIMIZE COMPLICATIONS.] Future Scheduled Test MEDICATION MANAGEMENT; RN/JUNIOR HIGH MATH TEACHER/LINE WALKER TO REVIEW MEDICATIONS FOR INTERACTIONS, EFFECTIVENESS OF DRUG THERAPY, AND SIGNS/SYMPTOMS OF ADVERSE REACTIONS. MAY INSTRUCT AND REINFORCE MEDICATION TEACHING RELATED TO THE USE OF MEDICATIONS, DOSAGE, FREQUENCY, PURPOSE, SIDE EFFECTS, AND TO REPORT COMPLICATIONS. [code = MEDICATION MANAGEMENT; RN/JUNIOR HIGH MATH TEACHER/LINE WALKER TO REVIEW MEDICATIONS FOR INTERACTIONS, EFFECTIVENESS OF DRUG THERAPY, AND SIGNS/SYMPTOMS OF ADVERSE REACTIONS. MAY INSTRUCT AND REINFORCE MEDICATION TEACHING RELATED TO THE USE OF MEDICATIONS, DOSAGE, FREQUENCY, PURPOSE, SIDE EFFECTS, AND TO REPORT COMPLICATIONS.] Future Scheduled Test RISK FOR H OSPITALIZATION; RN TO ASSESS/TEACH, LINE WALKER/JUNIOR HIGH MATH TEACHER TO OBSERVE/TEACH PATIENT/CAREGIVER ON RISK FOR HOSPITALIZATION/EMERGENCY ROOM VISITS, TEACH SIGNS AND SYMPTOMS THAT PUT PATIENT AT RISK, WHEN TO NOTIFY NURSE/PHYSICIAN OF COMPLICATIONS/DECLINE, AND WHEN TO CALL 911. [code = RISK FOR HOSPITALIZATION; RN TO ASSESS/TEACH, LINE WALKER/JUNIOR HIGH MATH TEACHER TO OBSERVE/TEACH PATIENT/CAREGIVER ON RISK FOR HOSPITALIZATION/EMERGENCY ROOM VISITS, TEACH SIGNS AND SYMPTOMS THAT PUT PATIENT AT RISK, WHEN TO NOTIFY NURSE/PHYSICIAN OF COMPLICATIONS/DECLINE, AND WHEN TO CALL 911.] Future Scheduled Test CARDIOVASC ULAR SYSTEM; RN TO ASSESS/TEACH, JUNIOR HIGH MATH TEACHER/LINE WALKER TO OBSERVE/TEACH RELATED TO ALTERED CARDIOVASCULAR STATUS TO MINIMIZE COMPLICATIONS AND REDUCE HOSPITALIZATION. [code = CARDIOVASCULAR SYSTEM; RN TO ASSESS/TEACH, JUNIOR HIGH MATH TEACHER/LINE WALKER TO OBSERVE/TEACH RELATED TO ALTERED CARDIOVASCULAR STATUS TO MINIMIZE COMPLICATIONS AND REDUCE HOSPITALIZATION.] Future Scheduled Test HYPERTENSI ON MANAGEMENT; RN TO ASSESS AND TEACH, JUNIOR HIGH MATH TEACHER/LINE WALKER TO OBSERVE AND TEACH WARNING SIGNS AND SYMPTOMS TO AVOID HOSPITALIZATION. [code = HYPERTENSION MANAGEMENT; RN TO ASSESS AND TEACH, JUNIOR HIGH MATH TEACHER/LINE WALKER TO OBSERVE AND TEACH WARNING SIGNS AND SYMPTOMS TO AVOID HOSPITALIZATION.] Future Scheduled Test RESPIRATOR Y SYSTEM MANAGEMENT; RN TO ASSESS AND TEACH, JUNIOR HIGH MATH TEACHER/LINE WALKER TO OBSERVE AND TEACH RELATED TO ALTERED RESPIRATORY STATUS TO MINIMIZE COMPLICATIONS AND REDUCE HOSPITALIZATION. [code = RESPIRATORY SYSTEM MANAGEMENT; RN TO ASSESS AND TEACH, JUNIOR HIGH MATH TEACHER/LINE WALKER TO OBSERVE AND TEACH RELATED TO ALTERED RESPIRATORY STATUS TO MINIMIZE COMPLICATIONS AND REDUCE HOSPITALIZATION.] Future Scheduled Test COPD MANAG EMENT; RN TO ASSESS AND TEACH, JUNIOR HIGH MATH TEACHER/LINE WALKER TO OBSERVE AND TEACH SIGNS/SYMPTOMS OF COPD EXACERBATION AND PROVIDE EARLY INTERVENTIONS TO MINIMIZE RISK OF HOSPITALIZATION. RN/JUNIOR HIGH MATH TEACHER/LINE WALKER TO INSTRUCT ON SELF-CARE MANAGEMENT INCLUDING BREATHING TECHNIQUES, AIRWAY CLEARANCE, AND PROPER USE OF COPD MEDICATIONS. RN TO ASSESS AND TEACH, JUNIOR HIGH MATH TEACHER/LINE WALKER TO OBSERVE AND TEACH PATIENT/CAREGIVER ABILITY TO MONITOR AND RECORD VITAL SIGNS INCLUDING PULSE OXIMETRY AND BLOOD PRESSURE. [code = COPD MANAGEMENT; RN TO ASSESS AND TEACH, JUNIOR HIGH MATH TEACHER/LINE WALKER TO OBSERVE AND TEACH SIGNS/SYMPTOMS OF COPD EXACERBATION AND PROVIDE EARLY INTERVENTIONS TO MINIMIZE RISK OF HOSPITALIZATION. RN/JUNIOR HIGH MATH TEACHER/LINE WALKER TO INSTRUCT ON SELF-CARE MANAGEMENT INCLUDING BREATHING TECHNIQUES, AIRWAY CLEARANCE, AND PROPER USE OF COPD MEDICATIONS. RN TO ASSESS AND TEACH, JUNIOR HIGH MATH TEACHER/LINE WALKER TO OBSERVE AND TEACH PATIENT/CAREGIVER ABILITY TO MONITOR AND RECORD VITAL SIGNS INCLUDING PULSE OXIMETRY AND BLOOD PRESSURE. ] Future Scheduled Test PAIN MANAG EMENT; RN TO ASSESS AND TEACH, LINE WALKER/JUNIOR HIGH MATH TEACHER TO OBSERVE AND TEACH AND PROVIDE EDUCATION ON PAIN MANAGEMENT TECHNIQUES. [code = PAIN MANAGEMENT; RN TO ASSESS AND TEACH, LINE WALKER/JUNIOR HIGH MATH TEACHER TO OBSERVE AND TEACH AND PROVIDE EDUCATION ON PAIN MANAGEMENT TECHNIQUES.] Future Scheduled Test DIABETES M ANAGEMENT; RN TO ASSESS AND TEACH, LINE WALKER/JUNIOR HIGH MATH TEACHER TO OBSERVE AND TEACH INSTRUCTIONS OF DIABETIC CARE TO INCLUDE: DIET CCHO, HEART HEALTHY SKIN CARE, SIGNS AND SYMPTOMS OF HYPO/HYPERGLYCEMIA, PROPER ADMINISTRATION OF DIABETIC MEDICATION. RN/LINE WALKER/JUNIOR HIGH MATH TEACHER TO INSTRUCT ON DIABETIC FOOT CARE AND MONITOR FOR SKIN LESIONS ON LOWER EXTREMITIES. BLOOD GLUCOSE TESTING TID RN TO ASSESS AND TEACH, LINE WALKER/JUNIOR HIGH MATH TEACHER TO OBSERVE AND TEACH PATIENT/CAREGIVER ABILITY TO PERFORM AND RECORD BLOOD GLUCOSE TESTING ORDERED AND TO REPORT ABNORMAL FINDINGS TO PHYSICIAN. RN/LINE WALKER/JUNIOR HIGH MATH TEACHER MAY PERFORM BLOOD GLUCOSE TEST NEEDED. RN/LINE WALKER/JUNIOR HIGH MATH TEACHER TO REPORT TO PHYSICIAN BLOOD GLUCOSE READINGS GREATER THAN 200 OR LESS THAN 80 RN/LINE WALKER/JUNIOR HIGH MATH TEACHER TO INSTRUCT PATIENT ON IMPORTANCE OF HGBA1C MONITORING, KIDNEY FUNCTION TEST, EYE AND FOOT EXAMS. [code = DIABETES MANAGEMENT; RN TO ASSESS AND TEACH, LINE WALKER/JUNIOR HIGH MATH TEACHER TO OBSERVE AND TEACH INSTRUCTIONS OF DIABETIC CARE TO INCLUDE: DIET CCHO, HEART HEALTHY SKIN CARE, SIGNS AND SYMPTOMS OF HYPO/HYPERGLYCEMIA, PROPER ADMINISTRATION OF DIABETIC MEDICATION. RN/LINE WALKER/JUNIOR HIGH MATH TEACHER TO INSTRUCT ON DIABETIC FOOT CARE AND MONITOR FOR SKIN LESIONS ON LOWER EXTREMITIES. BLOOD GLUCOSE TESTING TID RN TO ASSESS AND TEACH, LINE WALKER/JUNIOR HIGH MATH TEACHER TO OBSERVE AND TEACH PATIENT/CAREGIVER ABILITY TO PERFORM AND RECORD BLOOD GLUCOSE TESTING ORDERED AND TO REPORT ABNORMAL FINDINGS TO PHYSICIAN. RN/LINE WALKER/JUNIOR HIGH MATH TEACHER MAY PERFORM BLOOD GLUCOSE TEST NEEDED. RN/LINE WALKER/JUNIOR HIGH MATH TEACHER TO REPORT TO PHYSICIAN BLOOD GLUCOSE READINGS GREATER THAN 200 OR LESS THAN 80 RN/LINE WALKER/JUNIOR HIGH MATH TEACHER TO INSTRUCT PATIENT ON IMPORTANCE OF HGBA1C MONITORING, KIDNEY FUNCTION TEST, EYE AND FOOT EXAMS.] Future Scheduled Test ARRHYTHMIA MANAGEMENT; RN TO ASSESS AND TEACH, JUNIOR HIGH MATH TEACHER/LINE WALKER TO OBSERVE AND TEACH WARNING SIGNS AND SYMPTOMS TO AVOID HOSPITALIZATION. [code = ARRHYTHMIA MANAGEMENT; RN TO ASSESS AND TEACH, JUNIOR HIGH MATH TEACHER/LINE WALKER TO OBSERVE AND TEACH WARNING SIGNS AND SYMPTOMS TO AVOID HOSPITALIZATION.] Future Scheduled Test FALL REDUC TION MANAGEMENT; RN TO ASSESS AND OBSERVE, JUNIOR HIGH MATH TEACHER/LINE WALKER TO OBSERVE FALL RISK FACTORS AND EDUCATE PATIENT/CAREGIVER ON STRATEGIES TO MINIMIZE THE RISK OF FALLING. [code = FALL REDUCTION MANAGEMENT; RN TO ASSESS AND OBSERVE, JUNIOR HIGH MATH TEACHER/LINE WALKER TO OBSERVE FALL RISK FACTORS AND EDUCATE PATIENT/CAREGIVER ON STRATEGIES TO MINIMIZE THE RISK OF FALLING.] Future Scheduled Test NEUROLOGIC AL SYSTEM MANAGEMENT; RN TO ASSESS AND TEACH, LINE WALKER/JUNIOR HIGH MATH TEACHER TO OBSERVE AND TEACH RELATED TO ALTERED NEUROLOGICAL STATUS TO MINIMIZE COMPLICATIONS AND REDUCE HOSPITALIZATION. [code = NEUROLOGICAL SYSTEM MANAGEMENT; RN TO ASSESS AND TEACH, LINE WALKER/JUNIOR HIGH MATH TEACHER TO OBSERVE AND TEACH RELATED TO ALTERED NEUROLOGICAL STATUS TO MINIMIZE COMPLICATIONS AND REDUCE HOSPITALIZATION.] Future Scheduled Test SEIZURE DI SORDER MANAGEMENT; RN/LINE WALKER/JUNIOR HIGH MATH TEACHER TO PROVIDE INSTRUCTION REGARDING MANAGEMENT OF SEIZURE DISORDER AND SEIZURE PRECAUTIONS. [code = SEIZURE DISORDER MANAGEMENT; RN/LINE WALKER/JUNIOR HIGH MATH TEACHER TO PROVIDE INSTRUCTION REGARDING MANAGEMENT OF SEIZURE [...] End Date/Time Encounter Type Admission Type Attending [facility] Care Department Encounter ID Discharge Date Discharge Status Discharge Condition Discharge Reason Percent Goals Met 2024-06-13 00:00:00 2024-08-11 00:00:00 Outpatient RECERTIFIC GERMAIN B[facility] [id number]
== END 2024-08-14 16:02 | disposition home or self-care (01) ==
PROVIDERS: PCP Nurse Practitioner Family; Visit Provider Nurse Practitioner Family
DX: R05.9 Cough, unspecified (principal); R06.09 Other forms of dyspnea; R93.89 Abnormal findings on diagnostic imaging of other specified body structures
CPT/HCPCS: 99214

== ENCOUNTER → 2024-08-14 15:03 | Outpatient (BNVA) | payer OTHER, SELFPAY | PROVIDERS: PCP Nurse Practitioner Family; Visit Provider Nurse Practitioner Family | DX: G47.33 Obstructive sleep apnea (adult) (pediatric) (principal); R05.9 Cough, unspecified; R06.09 Other forms of dyspnea; R93.89 Abnormal findings on diagnostic imaging of other specified body structures; Z87.891 Personal history of nicotine dependence; Z99.89 Dependence on other enabling machines and devices | CPT/HCPCS: 99212 ==

== ENCOUNTER 2024-08-27 16:26 | Outpatient (REF) | payer OTHER, SELFPAY ==
--- NOTE | ~2024-08-27 | CT_ITS ---
CLINICAL HISTORY: R93.89 - Abnormal findings on diagnostic imaging of other specified body... CT chest without contrast Comparison: None Findings: The heart is normal size. Moderate Atherosclerosis calcification of the coronary artery. The visualized thyroid and mediastinum are unremarkable. Mild emphysema. There are calcified granulomas. There are noncalcified nodules: 2 mm in the left upper lobe series 4, image 75; 3 mm in the left upper lobe image 82; 3 mm left lower lobe image 131; 3 mm in the right lower lobe image 82. Limited evaluation of the right renal cyst. No acute fractures. IMPRESSION: Multiple small pulmonary nodules. CT chest follow-up is recommended in 1 year if patient is high-risk. Fleischner Society 2017 Guidelines for incidentally detected indeterminate nodules in persons 35 years of age or older. Single Solid Nodules: 5 mm or smaller nodules need no follow-up in low risk, and [address] follow-up is optional in high risk patients. 6-8 mm nodules have optional [address] follow-up in low risk, and 6-[address] follow-up followed by 18-[address] follow-up if no change in high risk patients. 9 mm or larger nodules should consider CT, PET/CT, or biopsy at 3 months regardless of patient risk. Multiple Solid Nodules: 5 mm or smaller nodules need no follow-up in low risk, and [address] follow-up is optional in high risk patients. 6-8 mm nodules need 3-[address] follow-up followed by an optional 18-[address] follow-up regardless of patient risk. 9 mm or larger nodules should consider 3-[address] follow-up. For low risk 18-24 month follow-up is optional, whereas for high risk it is needed. Single Ground Glass Nodules: 5 mm or smaller nodules need no followup 6 mm and larger nodules need CT at 6-12 months to confirm persistence, then CT every 2 years until 5 years Single Subsolid Nodules: 5 mm or smaller nodules need no followup 6 mm and larger nodules need CT at 3-6 months to confirm persistence. If no change and solid component /T/lt;6 mm, then CT every year until 5 years Multiple Ground Glass or Subsolid Nodules: 5 mm or smaller nodules need CT at 3-6 months. If stable, optional CT at 2 and 4 years. 6 mm or larger nodules need CT at 3-6 months. Subsequent management based on most suspicious nodule This document has been electronically signed by: Lori Maurice MD on 08/28/2024 14:16:30
== END 2024-08-27 16:27 | disposition home or self-care (01) ==
LOC: HO.CT 16:26
PROVIDERS: PCP Nurse Practitioner Family; Visit Provider Nurse Practitioner Family
DX: R93.89 Abnormal findings on diagnostic imaging of other specified body structures (principal); R05.9 Cough, unspecified
CPT/HCPCS: 71250

== ENCOUNTER → 2024-08-27 16:27 | Outpatient (BNV) | payer OTHER, SELFPAY | PROVIDERS: PCP Nurse Practitioner Family; Visit Provider Nuclear Medicine | DX: R91.8 Other nonspecific abnormal finding of lung field (principal) | CPT/HCPCS: 71250 ==